=== PATIENT | male | born 1940 | race Caucasian/White ===

== ENCOUNTER 2016-12-27 18:43 | Inpatient (IN) | payer OTHER, MEDICARE ==
[~2016-12-27] VITALS: Ht 167.6 cm; Wt 77.2 kg
[2016-12-27] MEDS ORDERED: SODIUM CHLORIDE 0.9% 1000ML 1,000 ML IV STA (19:02)
[2016-12-27 19:39] LABS: BUN/CREATININE RATIO 18.7 (10-20); CALCIUM 9.7 mg/dl (8.5-10.1); CREATININE 1.59 mg/dl (0.60-1.40); POTASSIUM 4.7 mmol/L (3.5-5.1)
[2016-12-27 19:42] LABS: BASO ABS # 0.09 K/uL (0-0.2); COMPLETE YES; ECHINOCYTES 1+; HEMATOCRIT 42.5 % (42-52); IG% 1.7 %; LYMPH % 35.9 %; LYMPH ABS # 3.31 K/uL (1.2-3.4); MEAN CELL VOLUME 90.2 fL (80-100); MEAN CORPUSCULAR HGB CONC 34.4 g/dl (32-36); MONO % 15.6 %; NEUT % 42.8 %; PLATELET COUNT 7 K/uL (130-400); PLT ESTIMATE SIGNIFIC DECREASED; RED BLOOD COUNT 4.71 M/uL (4.7-6.1); WHITE BLOOD COUNT 9.22 K/uL (4.8-10.8)
[2016-12-27 19:45] LABS: INR 1.2 (0.9-1.1); PARTIAL THROMBOPLASTIN RATIO 1.1; PROTHROMBIN TIME (PATIENT) 13.1 SECONDS (9.0-12.0)
[2016-12-27] MEDS ORDERED: AMLO-114 PO (19:46)
[2016-12-27] MEDS ORDERED: SULF800T23 PO (19:46)
[2016-12-27] MEDS ORDERED: ATEN50TA8 PO (19:46)
[2016-12-27] MEDS ORDERED: IBUP-1050 PO (19:46)
[2016-12-27 20:20] LABS: URINE APPEARANCE CLEAR (CLEAR); URINE BILIRUBIN NEG (NEG); URINE COLOR YELLOW; URINE EPITHELIAL CELL AUTO 0-5 /lpf (0-5); URINE NITRITE NEG (NEG); URINE PH 5.5 (4.5-7.5); URINE SPECIFIC GRAVITY 1.018 (1.000-1.030); UROBILINOGEN NEG (NEG)
[2016-12-27 20:23] LABS: MANUAL MICROSCOPIC REQUIRED? NO; REVIEW REQ? NO
[2016-12-27] MEDS ORDERED: METHYLPREDNISOLONE 125 MG VIAL IV STA (20:35)
[2016-12-27] MEDS ORDERED: ACETAMINOPHEN 325 MG TAB PO PRN (21:45)
[2016-12-27] MEDS ORDERED: MAGNESIUM HYDROXIDE SUSP 30 ML UDC PO PRN (21:45)
[2016-12-27] MEDS ORDERED: ONDANSETRON INJ 2 MG/ML 2 ML VIAL IV PRN (21:45)
[2016-12-27] MEDS ORDERED: ZOLPIDEM TARTRATE 5 MG TAB PO PRN (21:45)
[2016-12-27] MEDS ORDERED: POLYETHYLENE (MIRALAX) 17 GM PACK PO PRN (22:00)
[2016-12-27] MEDS ORDERED: IV FLUIDS COMPLETED PRN (22:00)
--- NOTE | 2016-12-27 22:07 | History and Physical ---
History & Physical Date & Time of Service: Dec 27, 2016 at 21:57 Chief Complaint: Low Platelet Count Primary Care Physician: No Doctor, Assigned History of Present Illness Source: patient 76 y/o M Hx HTN, recurrent prostatitis - presents following routine labs which revealed a platelet count of 9. He has had small reddish spots on his lower extremities for a few months and states he has been bruising easily for the past year. He developed 3 small areas of subcutaneous bleeding on his RLE, with a blister-like appearance, and scheduled an appt with his primary MD therefore. Labs were ordered and returned with the above platelet count. He was instructed to promptly attend the hospital. The pt was placed on a course of Bactrim 5 days prior for prostatitis. He states that he has been on Bactrim previously without complication. Initial labs confirm a platelet count of 7 and mildly impaired renal function without history of CKD. Past Medical/Surgical History Medical Problems: (1) HTN (hypertension) Status: Chronic (2) Prostatitis Status: Resolved Family History Mother age 96 Father - [place] Social History Pt is retired and hails from [place] Smoking Status: Never Smoker Allergies Coded Allergies: Ciprofloxacin (Verified Allergy, Severe, MUSCLE PROBLEMS, 12/27/16) Morphine (Verified Allergy, Severe, HALLUCINATIONS, 12/27/16) Home Medications Scheduled Amlodipine (Norvasc), 10 MG PO DAILY Ibuprofen (Advil), 400 MG PO PRN UD Sulfa/Trimethoprim (Bactrim Ds 800MG/160MG), 1 TAB PO BID Miscellaneous Medications Atenolol (Tenormin), 50 MG PO Review of Systems Constitutional: No fever, No chills, No sweats Eyes: No worsening of vision ENT: No hearing loss, No nasal symptoms Respiratory: No cough, No wheezing Cardiovascular: No chest pain Abdomen: No pain, No vomiting Musculoskeletal: No joint pain Genitourinary - Male: No hematuria, No dysuria Neurologic: No memory loss, No paralysis, No weakness Psychiatric: No depression symptoms Endocrine: No fatigue Hematologic / Lymphatic: + abnormal bleeding/bruising Integumentary: + rash, + problem reported (Blood-filled blisters on distal RLE) Physical Exam Vital Signs Date Time Temp Pulse Resp B/P (MAP) Pulse Ox O2 Delivery O2 Flow Rate FiO2 12/27/16 21:47 59 16 140/76 93 Room Air 12/27/16 20:40 68 20 95 Room Air 12/27/16 19:22 62 12/27/16 18:45 36.6 57 18 183/93 97 Room Air General Appearance: WD/WN, no apparent distress Head: normocephalic ENT: normal ENT inspection, pharynx normal Neck: supple, no JVD Respiratory/Chest: chest non-tender, lungs clear, normal breath sounds, no respiratory distress, no accessory muscle use Cardiovascular: regular rate, rhythm, no edema, no gallop Abdomen/GI: normal bowel sounds, non tender, soft Back: normal inspection, no CVA tenderness Extremities/Musculoskelatal: normal inspection, no calf tenderness, normal capillary refill 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, no motor/sensory deficits, alert, oriented x 3 Skin: normal color, warm/dry, no rash, + pertinent finding (Blood-filled blisters on distal RLE) Diagnostics Laboratory Results Results Past 24 Hours Test 12/27/16 19:07 12/27/16 19:44 Range/Units White Blood Count 9.22 4.8-10.8 K/uL Red Blood Count 4.71 4.7-6.1 M/uL Hemoglobin 14.6 14.0-18.0 g/dL Hematocrit 42.5 42-52 % Mean Corpuscular Volume 90.2 80-100 fL Mean Corpuscular Hemoglobin 31.0 25-34 pg Mean Corpuscular Hemoglobin Concent 34.4 32-36 g/dl Platelet Count 7 130-400 K/uL Neutrophils (%) (Auto) 42.8 % Lymphocytes (%) (Auto) 35.9 % Monocytes (%) (Auto) 15.6 % Eosinophils (%) (Auto) 3.0 % Basophils (%) (Auto) 1.0 % Neutrophils # (Auto) 3.94 1.4-6.5 K/uL Lymphocytes # (Auto) 3.31 1.2-3.4 K/uL Monocytes # (Auto) 1.44 0.11-0.59 K/uL Eosinophils # (Auto) 0.28 0-0.5 K/uL Basophils # (Auto) 0.09 0-0.2 K/uL RDW Standard Deviation 46.3 36.4-46.3 fL RDW Coefficient of Variation 14.0 11.5-14.5 % Immature Granulocyte % (Auto) 1.7 % Immature Granulocyte # (Auto) 0.16 0.00-0.02 K/uL Platelet Estimate SIGNIFIC DECREASED Echinocytes 1+ Prothrombin Time 13.1 9.0-12.0 SECONDS Prothromb Time International Ratio 1.2 0.9-1.1 Activated Partial Thromboplast Time 27.5 21.0-31.0 SECONDS Partial Thromboplastin Ratio 1.1 Sodium Level 138 136-145 mmol/L Potassium Level 4.7 3.5-5.1 mmol/L Chloride Level 109 98-107 mmol/L Carbon Dioxide Level 23 21-32 mmol/L Anion Gap 6.0 3-11 mmol/L Blood Urea Nitrogen 30 7-18 mg/dl Creatinine 1.59 0.60-1.40 mg/dl Est Creatinine Clear Calc Drug Dose 38.4 ml/min Estimated GFR () 47.8 Estimated GFR (Non- 41.3 BUN/Creatinine Ratio 18.7 10-20 Random Glucose 95 70-99 mg/dl Calcium Level 9.7 8.5-10.1 mg/dl Total Bilirubin 0.4 0.2-1 mg/dl Direct Bilirubin 0.1 0-0.2 mg/dl Aspartate Amino Transf (AST/SGOT) 77 15-37 U/L Alanine Aminotransferase (ALT/SGPT) 154 12-78 U/L Alkaline Phosphatase 71 45-117 U/L Lactate Dehydrogenase 266 87-241 U/L Total Protein 7.9 6.4-8.2 gm/dl Albumin 3.8 3.4-5.0 gm/dl Lipase 309 73-393 U/L Urine Color YELLOW Urine Appearance CLEAR CLEAR Urine pH 5.5 4.5-7.5 Urine Specific [place] 1.018 1.000-1.030 Urine Protein NEG NEG Urine Glucose (UA) NEG NEG Urine Ketones NEG NEG Urine Occult Blood 1+ NEG Urine Nitrite NEG NEG Urine Bilirubin NEG NEG Urine Urobilinogen NEG NEG Urine Leukocyte Esterase NEG NEG Urine WBC (Auto) 1-5 0-5 /hpf Urine RBC (Auto) 5-10 0-4 /hpf Urine Hyaline Casts (Auto) 1-5 0-5 /lpf Urine Epithelial Cells (Auto) 0-5 0-5 /lpf Urine Bacteria (Auto) NEG NEG Impression Assessment and Plan 76 y/o M Hx HTN, recurrent prostatitis - presents following routine labs which revealed a platelet count of 9. He has had small reddish spots on his lower extremities for a few months and states he has been bruising easily for the past year. He developed 3 small areas of subcutaneous bleeding on his RLE, with a blister-like appearance, and scheduled an appt with his primary MD therefore. Labs were ordered and returned with the above platelet count. Initial labs confirm a platelet count of 7 and mildly impaired renal function without history of CKD. 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 We will place him on Dexamethasone 40mg daily x 4 days per review of recent lit. With response appropriate response to steroids, he can be considered for AM DC as he does not have active bleeding or anemia. 2) HTN - cont Norvasc and Atenolol 3) Prostatitis - It is likely that his low platelet count preceded his use of Bactrim although we cannot confirm this so that he will be switched to Doxy as an acceptable alternative. He is allergic to Fluoroquinolones. 4) Impaired renal function - chronicity not clear - denies history of - we will provide IVF and recheck AM - this too may be a Bactrim effect. Full code - Prophylaxis contraindicated Total time for this admit including review of labs, meds, imaging - discussion with pt and ER attending 37 min Level of Care Med/Surg Resuscitation Status FULL RESUSCITATION VTE Prophylaxis VTE Risk Assessment Done? Y/N: Yes Risk Level: Low Given or contraindicated: Treatment not tolerated, Contraindicated
--- NOTE | 2016-12-27 22:21 | EMERGENCY ROOM VISIT NOTE ---
History Report prepared by Mitali: José Antonio Roe Under the Supervision of: Dr. Gaston Rivera D.O. First contact with patient: 18:48 Chief Complaint: ABNORMAL LABS Stated Complaint: LOW 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 History of Present Illness The patient is a 76 year old male who presents to the Emergency Room with complaints of constant thrombocytopenia. He was found to have a platelet count below 9000 today. The patient had blood work done today due to having small "lesions" on his legs. He notes that he developed the areas on his legs last week after he began taking Bactrim for prostatitis. The patient also states that he has had "small bumps" on his legs for the past 3-4 months. He states that he has been bruising very easily for the past three months as well. The patient notes that he has had problems with his prostate before in the past. Pt denies headache, change in vision, fevers, bloody or tarry stool, lightheadedness, chest pain, shortness of breath, nausea, vomiting, diarrhea, and melena. He states that he has had some burning with urination. Source of History: patient Onset: Today Symptom Intensity: Platelet count below 9000 Quality: other (thrombocytopenia) Timing: constant Associated Symptoms: + urinary symptoms (burning), No fevers, No chest pain , No SOB, No nausea, No vomiting, No abdominal pain, No melena, No hematochezia , No diarrhea Note: The patient denies change in vision or lightheadedness. Review of Systems See HPI for pertinent positives & negatives. A total of 10 systems reviewed and were otherwise negative. Past Medical & Surgical Medical Problems: (1) HTN (hypertension) (2) Prostatitis (3) Thrombocytopenia Family History No pertinent family history stated. Social History Smoking Status: Never Smoker Occupation Status: retired Current/Historical Medications Scheduled Amlodipine (Norvasc), 10 MG PO DAILY Ibuprofen (Advil), 400 MG PO PRN UD Sulfa/Trimethoprim (Bactrim Ds 800MG/160MG), 1 TAB PO BID Miscellaneous Medications Atenolol (Tenormin), 50 MG PO Allergies Coded Allergies: Ciprofloxacin (Verified Allergy, Severe, MUSCLE PROBLEMS, 12/27/16) Morphine (Verified Allergy, Severe, HALLUCINATIONS, 12/27/16) Physical Exam Vital Signs Date Time Temp Pulse Resp B/P (MAP) Pulse Ox O2 Delivery O2 Flow Rate FiO2 10/25/17 21:47 59 16 140/76 93 Room Air 12/27/16 20:40 68 20 95 Room Air 12/27/16 19:22 62 12/27/16 18:45 36.6 57 18 183/93 97 Room Air Physical Exam GENERAL: Sitting up in bed, alert, well appearing, well nourished, no distress, non-toxic EYE EXAM: normal conjunctiva. OROPHARYNX: no exudate, no erythema, lips, buccal mucosa, and tongue normal and mucous membranes are moist NECK: supple, no nuchal rigidity, no adenopathy, non-tender LUNGS: Clear to auscultation. Normal chest wall mechanics HEART: no murmurs, S1 normal and S2 normal ABDOMEN: abdomen soft, non-tender, normo-active bowel sounds, no masses, no rebound or guarding. BACK: Back is symmetrical on inspection and there is no deformity, no midline tenderness, no CVA tenderness. SKIN: Petechia on bilateral lower extremities with several boli on the right calf, left calf, and left upper shoulder. UPPER EXTREMITIES: upper extremities are grossly normal. LOWER EXTREMITIES: No pitting edema. NEURO EXAM: Normal sensorium, cranial nerves II-XII grossly intact, normal speech, no gross weakness of arms, no gross weakness of legs. Medical Decision & Procedures Laboratory Results 12/27/16 19:07 Red Blood Count 4.71, Mean Corpuscular Volume 90.2, Mean Corpuscular Hemoglobin 31.0, Mean Corpuscular Hemoglobin Concent 34.4, Neutrophils (%) (Auto) 42.8, Lymphocytes (%) (Auto) 35.9, Monocytes (%) (Auto) 15.6, Eosinophils (%) (Auto) 3.0, Basophils (%) (Auto) 1.0, Neutrophils # (Auto) 3.94, Lymphocytes # (Auto) 3.31, Monocytes # (Auto) 1.44, Eosinophils # (Auto) 0.28, Basophils # (Auto) 0.09 12/27/16 19:07 Test 12/27/16 19:07 12/27/16 19:44 White Blood Count 9.22 K/uL (4.8-10.8) Red Blood Count 4.71 M/uL (4.7-6.1) Hemoglobin 14.6 g/dL (14.0-18.0) Hematocrit 42.5 % (42-52) Mean Corpuscular Volume 90.2 fL (80-100) Mean Corpuscular Hemoglobin 31.0 pg (25-34) Mean Corpuscular Hemoglobin Concent 34.4 g/dl (32-36) Platelet Count 7 K/uL (130-400) Neutrophils (%) (Auto) 42.8 % Lymphocytes (%) (Auto) 35.9 % Monocytes (%) (Auto) 15.6 % Eosinophils (%) (Auto) 3.0 % Basophils (%) (Auto) 1.0 % Neutrophils # (Auto) 3.94 K/uL (1.4-6.5) Lymphocytes # (Auto) 3.31 K/uL (1.2-3.4) Monocytes # (Auto) 1.44 K/uL (0.11-0.59) Eosinophils # (Auto) 0.28 K/uL (0-0.5) Basophils # (Auto) 0.09 K/uL (0-0.2) RDW Standard Deviation 46.3 fL (36.4-46.3) RDW Coefficient of Variation 14.0 % (11.5-14.5) Immature Granulocyte % (Auto) 1.7 % Immature Granulocyte # (Auto) 0.16 K/uL (0.00-0.02) Platelet Estimate SIGNIFIC DECREASED Echinocytes 1+ Prothrombin Time 13.1 SECONDS (9.0-12.0) Prothromb Time International Ratio 1.2 (0.9-1.1) Activated Partial Thromboplast Time 27.5 SECONDS (21.0-31.0) Partial Thromboplastin Ratio 1.1 Anion Gap 6.0 mmol/L (3-11) Est Creatinine Clear Calc Drug Dose 38.4 ml/min Estimated GFR () 47.8 Estimated GFR (Non- 41.3 BUN/Creatinine Ratio 18.7 (10-20) Calcium Level 9.7 mg/dl (8.5-10.1) Total Bilirubin 0.4 mg/dl (0.2-1) Direct Bilirubin 0.1 mg/dl (0-0.2) Aspartate Amino Transf (AST/SGOT) 77 U/L (15-37) Alanine Aminotransferase (ALT/SGPT) 154 U/L (12-78) Alkaline Phosphatase 71 U/L (45-117) Lactate Dehydrogenase 266 U/L (87-241) Total Protein 7.9 gm/dl (6.4-8.2) Albumin 3.8 gm/dl (3.4-5.0) Lipase 309 U/L (73-393) Urine Color YELLOW Urine Appearance CLEAR (CLEAR) Urine pH 5.5 (4.5-7.5) Urine Specific [place] 1.018 (1.000-1.030) Urine Protein NEG (NEG) Urine Glucose (UA) NEG (NEG) Urine Ketones NEG (NEG) Urine Occult Blood 1+ (NEG) Urine Nitrite NEG (NEG) Urine Bilirubin NEG (NEG) Urine Urobilinogen NEG (NEG) Urine Leukocyte Esterase NEG (NEG) Urine WBC (Auto) 1-5 /hpf (0-5) Urine RBC (Auto) 5-10 /hpf (0-4) Urine Hyaline Casts (Auto) 1-5 /lpf (0-5) Urine Epithelial Cells (Auto) 0-5 /lpf (0-5) Urine Bacteria (Auto) NEG (NEG) Laboratory results per my review. Medications Administered Medications (Trade) Dose Ordered Sig/Brandi Route Start Time Stop Time Status Last Admin Dose Admin Sodium Chloride 1,000 ml @ 999 mls/hr Q1H1M STAT IV 12/27/16 19:02 12/27/16 20:02 DC 12/27/16 19:02 999 MLS/HR Methylprednisolone Sodium Succinate (Solu-Medrol IV) 40 mg NOW STAT IV 12/27/16 20:35 12/27/16 20:36 DC 12/27/16 20:53 40 MG ED Course ED COURSE: Vital signs were reviewed and showed hypertension. The patients medical record was reviewed The above diagnostic studies were performed and reviewed. ED treatments and interventions as stated above. 1848: The patient was evaluated in room B6. A complete history and physical examination was performed. 1901: Ordered Sodium Chloride 1000 ml @ 999 mls/hr IV. 1958: I discussed the patient's case with the patient's PCP. He requests that the patient be admitted to the hospital. 2034: Ordered Solu-Medrol 40 mg IV. 2039: Upon reevaluation, the patient is resting comfortably. I discussed my findings with the patient and he understands and agrees with the treatment plan. Based on the patients age, coexisting illnesses, exam and lab findings the decision to treat as an inpatient was made. The patient remained stable while under my care. The patient will be evaluated for further management. Medical Decision Differential Diagnosis includes but is not limited to dehydration, stroke, anemia, hypoglycemia, hyponatremia, hypernatremia, urinary tract infection, pneumonia, bronchitis, sepsis, gastroenteritis, additional abdominal pathology, metabolic abnormalities and infections. Patient is a 76-year-old male who notes he has been having bruising over the past year. In the lower extremities he admits that he has had these red spots. On exam he's or petechiae. Recently had blood work performed today which showed platelets of 9. He was referred into the ER admission. Labs were obtained and repeated. Platelets were 7. Discussed with hematology and oncology. Recommended admission and steroids as this is the likely ITP. Did discuss the possibility of Bactrim as he was recently started on this 4 days ago. He has several larger bullae. Negative Nikolsky sign. Updated patient bedside. He is admitted to internal medicine for ITP. He is on Bactrim for possible prostatitis. Medication Reconcilliation Current Medication List: was personally reviewed by me Blood Pressure Screening Patient's blood pressure: Elevated blood pressure Blood pressure disposition: Referred to PCP Consults Time Called: 2024 Consulting Physician: Dr. Durbin -Hematology Returned Call: 2030 I reviewed the patient's case with Dr. Durbin. He recommends that the patient be admitted for further work up. Additional Consults: Time Called: 2031 Consulted Physician: Dr. Sellers -[facility] Returned Call: 2034 Additional Comments: I reviewed the patient's case with Dr. Sellers. EUGENE will evaluate the patient for further management. Impression Primary Impression: Acute ITP Additional Impression: Thrombocytopenia Scribe Attestation The scribe's documentation has been prepared under my direction and personally reviewed by me in its entirety. I confirm that the note above accurately reflects all work, treatment, procedures, and medical decision making performed by me. Departure Information Dispostion Being Evaluated By Hospitalist Referrals No Doctor, Assigned (PCP) Patient Instructions My [facility] [address] Problem Qualifiers
[2016-12-27] MEDS ORDERED: SODIUM CHLORIDE 0.9% 1000ML 1,000 ML IV SCH (22:45)
[2016-12-27 22:58] VITALS: BP 164/80; PULSE 55; TEMP 36.5; O2SAT 96; Ht 167.6 cm; Wt 77.2 kg
[2016-12-28] VITALS: BP 125/77; PULSE 61; TEMP 36.6; O2SAT 96
[2016-12-28 04:00] VITALS: BP 134/77; PULSE 55; TEMP 36.7; O2SAT 97
[2016-12-28 06:19] LABS: BUN/CREATININE RATIO 16.4 (10-20); CALCIUM 8.6 mg/dl (8.5-10.1); CREATININE 1.32 mg/dl (0.60-1.40); POTASSIUM 4.5 mmol/L (3.5-5.1)
[2016-12-28 07:05] VITALS: BP 143/75; PULSE 58; TEMP 36.5; O2SAT 97
[2016-12-28 07:37] LABS: HEMATOCRIT 38.9 % (42-52); MEAN CELL VOLUME 91.5 fL (80-100); MEAN CORPUSCULAR HEMOGLOBIN 30.4 pg (25-34); MEAN CORPUSCULAR HGB CONC 33.2 g/dl (32-36); MEAN PLATELET VOLUME 13.1 fL (7.4-10.4); PLATELET COUNT 5 K/uL (130-400); RED BLOOD COUNT 4.25 M/uL (4.7-6.1); WHITE BLOOD COUNT 8.44 K/uL (4.8-10.8)
[2016-12-28] MEDS: DEXAMETHASONE INJ 40 MG in DEXTROSE 5% 50ML 50 ML IV SCH (08:14)
--- NOTE | 2016-12-28 08:37 | Hospitalist Progress Note ---
Hospitalist Progress Note Date of Service Dec 28, 2016. (Oxana Steinberg PA-C) Subjective Pt evaluation today including: conversation w/ patient, physical exam, chart review, lab review, review of studies Pain: None PO Intake: Good Voiding: no voiding problems The patient was seen and examined this morning. Pt reports feeling well overall. He reports initially noticing petechiae over his lower extremities around the beginning of the year. In June, it became more diffuse on his lower extremities. He has noticed an increased bruisability since end of August this year although thought this was from taking baby aspirin daily, so stopped taking this medication in the beginning of September. He has been on courses of bactrim more than 5 times for prostatitis in his lifetime and has never noticed petechiae before. Interestingly, the patient notes he felt very ill with malaise and fever last Sunday, broke into night sweats, and was seen by his PCP , Dr. Guerrero on Sunday because he felt he was "sitting on a golfball" and knows this as the beginning signs of prostatitis. At that time he was place on bactrim twice daily to continue for 1 month. He had a solid 6 days of taking antibiotic prior to admission. Pt admits that there are larger "spots" developing over his L shoulder, back, and a few places on his arms and legs. Constitutional: No fever, No chills, No sweats, No fatigue Eyes: No redness, No diplopia ENT: No unusual epistaxis, No nasal symptoms, No sore throat Respiratory: No cough, No shortness of breath, No hemoptysis Cardiovascular: No chest pain, No edema, No palpitations Abdomen: No pain, No nausea, No vomiting, No diarrhea, No constipation, No GI bleeding Musculoskeletal: No joint pain, No muscle pain, No swelling Male : No dysuria, No urinary frequency, No incontinence, No hematuria Neurologic: No weakness, No numbness/tingling, No balance problems Skin: + new/changing skin lesions (see HPI) (Oxana Steinberg PA-C) Objective Vital Signs Date Time Temp Pulse Resp B/P (MAP) Pulse Ox O2 Delivery O2 Flow Rate FiO2 12/28/16 07:05 36.5 58 143/75 (97) 97 Room Air 12/28/16 04:00 36.7 55 20 134/77 (96) 97 Room Air 12/28/16 00:01 Room Air 12/28/16 00:00 36.6 61 20 125/77 (93) 96 Room Air 12/27/16 22:58 36.5 55 18 164/80 96 Room Air 12/27/16 21:47 59 16 140/76 93 Room Air 12/27/16 20:40 68 20 95 Room Air 12/27/16 19:22 62 12/27/16 18:45 36.6 57 18 183/93 97 Room Air (Oxana Steinberg, MAGDIELC) Physical Exam General Appearance: WD/WN, no apparent distress Eyes: PERRL, EOMI ENT: hearing grossly normal Neck: supple, no JVD Respiratory/Chest: lungs clear, no respiratory distress, no accessory muscle use Cardiovascular: regular rate, rhythm, no murmur Abdomen: normal bowel sounds, non tender, soft, no organomegaly Extremities: non-tender, no pedal edema, no calf tenderness Neurologic/Psychiatric: alert, normal mood/affect, oriented x 3 Skin: normal color, + pertinent finding (+ petechiae BLE, + small hemorrhagic bullae present over left lateral calf, +Left posterior shouler lesion, + few small areas 2x2 cm circular eryhematous lesions developing on legs and back. ) (Oxana Steinberg, JAIMIE-C) Laboratory Results Last 24 Hours Test 12/27/16 19:07 12/27/16 19:44 12/28/16 05:18 White Blood Count 9.22 K/uL 8.44 K/uL Red Blood Count 4.71 M/uL 4.25 M/uL Hemoglobin 14.6 g/dL 12.9 g/dL Hematocrit 42.5 % 38.9 % Mean Corpuscular Volume 90.2 fL 91.5 fL Mean Corpuscular Hemoglobin 31.0 pg 30.4 pg Mean Corpuscular Hemoglobin Concent 34.4 g/dl 33.2 g/dl Platelet Count 7 K/uL 5 K/uL Neutrophils (%) (Auto) 42.8 % Lymphocytes (%) (Auto) 35.9 % Monocytes (%) (Auto) 15.6 % Eosinophils (%) (Auto) 3.0 % Basophils (%) (Auto) 1.0 % Neutrophils # (Auto) 3.94 K/uL Lymphocytes # (Auto) 3.31 K/uL Monocytes # (Auto) 1.44 K/uL Eosinophils # (Auto) 0.28 K/uL Basophils # (Auto) 0.09 K/uL RDW Standard Deviation 46.3 fL 46.6 fL RDW Coefficient of Variation 14.0 % 14.0 % Immature Granulocyte % (Auto) 1.7 % Immature Granulocyte # (Auto) 0.16 K/uL Platelet Estimate SIGNIFIC DECREASED Echinocytes 1+ Prothrombin Time 13.1 SECONDS Prothromb Time International Ratio 1.2 Activated Partial Thromboplast Time 27.5 SECONDS Partial Thromboplastin Ratio 1.1 Sodium Level 138 mmol/L 138 mmol/L Potassium Level 4.7 mmol/L 4.5 mmol/L Chloride Level 109 mmol/L 109 mmol/L Carbon Dioxide Level 23 mmol/L 23 mmol/L Anion Gap 6.0 mmol/L 6.0 mmol/L Blood Urea Nitrogen 30 mg/dl 22 mg/dl Creatinine 1.59 mg/dl 1.32 mg/dl Est Creatinine Clear Calc Drug Dose 38.4 ml/min 46.2 ml/min Estimated GFR () 47.8 59.9 Estimated GFR (Non- 41.3 51.7 BUN/Creatinine Ratio 18.7 16.4 Random Glucose 95 mg/dl 106 mg/dl Calcium Level 9.7 mg/dl 8.6 mg/dl Total Bilirubin 0.4 mg/dl Direct Bilirubin 0.1 mg/dl Aspartate Amino Transf (AST/SGOT) 77 U/L Alanine Aminotransferase (ALT/SGPT) 154 U/L Alkaline Phosphatase 71 U/L Lactate Dehydrogenase 266 U/L Total Protein 7.9 gm/dl Albumin 3.8 gm/dl Lipase 309 U/L Urine Color YELLOW Urine Appearance CLEAR Urine pH 5.5 Urine Specific [place] 1.018 Urine Protein NEG Urine Glucose (UA) NEG Urine Ketones NEG Urine Occult Blood 1+ Urine Nitrite NEG Urine Bilirubin NEG Urine Urobilinogen NEG Urine Leukocyte Esterase NEG Urine WBC (Auto) 1-5 /hpf Urine RBC (Auto) 5-10 /hpf Urine Hyaline Casts (Auto) 1-5 /lpf Urine Epithelial Cells (Auto) 0-5 /lpf Urine Bacteria (Auto) NEG Mean Platelet Volume 13.1 fL (Oxana Steinberg PA-C) Assessment and Plan 76 y/o M Hx HTN, recurrent prostatitis - presents following routine labs which revealed a platelet count of 9. He has had small reddish spots on his lower extremities for a few months and states he has been bruising easily for the past year. He developed 3 small areas of subcutaneous bleeding on his RLE, with a blister-like appearance, and scheduled an appt with his primary MD therefore. 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 - Pt allergic to Fluoroquinolones. Impaired renal function - Denies hx of zach but appears improved with hydration overnight. - possible this is from Bactrim? DVT ppx: contraindicated CODE STATUS: Full code Disposition: From home, lives with (Oxana Steinberg PA-C) I examined patient and discussed my analysis and plan with patient and APC. I agree with above note. My exam did not differ from the exam noted above. I answered all questions from patient. (Blayne Castillo M.D.)
[2016-12-28 08:59] LABS: BASO % 0.8 %; BASO ABS # 0.07 K/uL (0-0.2); COMPLETE YES; ECHINOCYTES 1+; EOS % 3.8 %; IG% 1.4 %; LYMPH % 35.8 %; LYMPH ABS # 3.02 K/uL (1.2-3.4); MONO % 16.6 %; NEUT % 41.6 %; PLT ESTIMATE SIGNIFIC DECREASED; TEAR DROP CELLS 1+
--- NOTE | 2016-12-28 09:59 | Oncology Consultation ---
Oncology/Heme Consultation Date of Consultation: Dec 28, 2016. Attending Physician: Rene Sellers M.D. Reason for Consultation: Thrombocytopenia History of Present Illness Mr. Tamayo is a delightful 76-year-old gentleman of [place] descent that was admitted last night with severe thrombocytopenia. He is a good historian he describes what sound like petechiae that were on his ankles and feet for several months. More recently he developed essentially blood blisters on his calf on the right side in a few days ago perhaps for 5 days ago he also had a a drenching night sweats. For the past few days in addition he has been on Bactrim for recurrent prostatitis. CBC was done that showed a platelet count of 7000 and the patient was admitted and is currently receiving bolus high-dose Decadron. He denies any personal history of heart disease lung disease strokes or seizures or kidney problems. He does have a history of renal lithiasis. He denies any history of diabetes. There is been no other medicine changes. He does not drink alcohol to any great extent and does not smoke. He denies weight loss. He denies any new aches and pains although he has a history of rheumatoid arthritis and takes an occasional ibuprofen when he plays golf. He has a history of rheumatic fever as a child. He used to take baby aspirin but he stopped 6 months ago when he commented to his primary physician that he tended to bruise easier than what he can recall. Past Medical/Surgical History Medical Problems: (1) Acute ITP Status: Acute Social History Smoking Status: Never Smoker Occupation Status: retired Allergies Coded Allergies: Ciprofloxacin (Verified Allergy, Severe, MUSCLE PROBLEMS, 12/27/16) Morphine (Verified Allergy, Severe, HALLUCINATIONS, 12/27/16) Home Medications Scheduled Amlodipine (Norvasc), 10 MG PO DAILY Ibuprofen (Advil), 400 MG PO PRN UD Sulfa/Trimethoprim (Bactrim Ds 800MG/160MG), 1 TAB PO BID Miscellaneous Medications Atenolol (Tenormin), 50 MG PO Current Inpatient Medications Current Inpatient Medications Medications (Trade) Dose Ordered Sig/Brandi Route Start Time Stop Time Status Last Admin Dose Admin Amlodipine Besylate (Norvasc Tab) 10 mg DAILY PO 12/28/16 08:00 01/27/17 08:59 Atenolol (Tenormin Tab) 50 mg DAILY PO 12/28/16 08:00 01/27/17 08:59 Acetaminophen (Tylenol Tab) 650 mg Q4H PRN PO 12/27/16 21:45 01/26/17 21:44 Al Hydrox/Mg Hydrox/Simethicone (Maalox Max Susp) 15 ml Q4H PRN PO 12/27/16 21:45 01/26/17 21:44 Magnesium Hydroxide (Milk Of Magnesia Susp) 30 ml Q6H PRN PO 12/27/16 21:45 01/26/17 21:44 Polyethylene (Miralax Powder Packet) 17 gm DAILY PRN PO 12/27/16 22:00 01/26/17 21:59 Zolpidem Tartrate (Ambien Tab) 5 mg HSZ PRN PO 12/27/16 21:45 01/26/17 21:44 Ondansetron HCl (Zofran Inj) 4 mg Q6H PRN IV 12/27/16 21:45 01/26/17 21:44 Miscellaneous (Iv Fluids Completed) 1 ea PRN PRN N/A 12/27/16 22:00 12/27/17 21:59 Dexamethasone Sodium Phosphate 40 mg/Dextrose 60 ml @ 120 mls/hr Q24H IV 12/28/16 08:00 01/27/17 07:59 12/28/16 08:14 120 MLS/HR Doxycycline Hyclate (Vibramycin Cap) 100 mg BID PO 12/28/16 08:00 01/07/17 08:59 Review of Systems Constitutional: Negative for weight loss, he did have an evening last Sunday night with a night sweats Eyes: Negative for event change of vision ENT: Negative for epistaxis, nasal discharge, sore throat, or deafness Cardiovascular: Negative for chest pain, palpitations, dizziness, diaphoresis Respiratory: Negative for new shortness of breath,hemoptysis, or purulent cough Gastrointestinal: Negative for diarrhea, hematemesis, melena, nausea, vomiting , or dyspepsia Integumentary (skin): Negative for rash or jaundice discoloration Genitourinary: Negative for urinary frequency, hematuria, or dysuria Neurological: Negative for weakness, seizure activity, headache, or dizziness Lymphatic/Hematologic: Negative for petechiae, bleeding or new adenopathy Musculoskeletal: Negative for new joint or back pain Allergic/Immunologic: Negative for unusual rash or pruritis. Physical Exam Date Time Temp Pulse Resp B/P (MAP) Pulse Ox O2 Delivery O2 Flow Rate FiO2 12/28/16 07:05 36.5 58 143/75 (97) 97 Room Air 12/28/16 04:00 36.7 55 20 134/77 (96) 97 Room Air 12/28/16 00:01 Room Air 12/28/16 00:00 36.6 61 20 125/77 (93) 96 Room Air 12/27/16 22:58 36.5 55 18 164/80 96 Room Air 12/27/16 21:47 59 16 140/76 93 Room Air 12/27/16 20:40 68 20 95 Room Air 12/27/16 19:22 62 12/27/16 18:45 36.6 57 18 183/93 97 Room Air Constitutional: vitals are stable. Eyes: Eyes are ANISHA EOMI without conjuctival erythema or icterus. ENT: External examination was negative for masses. Neck: Negative for masses or palpable thyromegaly Respiratory: Lung sounds were generally clear bilaterally Cardiovascular: Heart was RRR without significant murmur, gallops aoe rubs Gastrointestinal: No palpable hepatic or splenomegaly. The abdomen was soft with normal bowel sounds. Lymphatic system: there was no palpable peripheral lymphadenopathy Musculoskeletal System: The musculoskeletal system seemed concordant with age. Skin: The skin was negative for jaundice. There are dependent petechiae on both lower extremities involving ankles lower legs and feet. There is 1 "blood blister" on the lateral aspect of his right leg Neurologic exam: The exam was negative for any focal findings. Deep tendon reflexes were equal and symmetrical. Psychiatric exam: Was essentially negative with normal mood and effect. Extremities: Negative for edema erythema Laboratory Results Last 24 Hours Test 12/27/16 19:07 12/27/16 19:44 12/28/16 05:18 White Blood Count 9.22 K/uL 8.44 K/uL Red Blood Count 4.71 M/uL 4.25 M/uL Hemoglobin 14.6 g/dL 12.9 g/dL Hematocrit 42.5 % 38.9 % Mean Corpuscular Volume 90.2 fL 91.5 fL Mean Corpuscular Hemoglobin 31.0 pg 30.4 pg Mean Corpuscular Hemoglobin Concent 34.4 g/dl 33.2 g/dl Platelet Count 7 K/uL 5 K/uL Neutrophils (%) (Auto) 42.8 % 41.6 % Lymphocytes (%) (Auto) 35.9 % 35.8 % Monocytes (%) (Auto) 15.6 % 16.6 % Eosinophils (%) (Auto) 3.0 % 3.8 % Basophils (%) (Auto) 1.0 % 0.8 % Neutrophils # (Auto) 3.94 K/uL 3.51 K/uL Lymphocytes # (Auto) 3.31 K/uL 3.02 K/uL Monocytes # (Auto) 1.44 K/uL 1.40 K/uL Eosinophils # (Auto) 0.28 K/uL 0.32 K/uL Basophils # (Auto) 0.09 K/uL 0.07 K/uL RDW Standard Deviation 46.3 fL 46.6 fL RDW Coefficient of Variation 14.0 % 14.0 % Immature Granulocyte % (Auto) 1.7 % 1.4 % Immature Granulocyte # (Auto) 0.16 K/uL 0.12 K/uL Platelet Estimate SIGNIFIC DECREASED SIGNIFIC DECREASED Echinocytes 1+ 1+ Prothrombin Time 13.1 SECONDS Prothromb Time International Ratio 1.2 Activated Partial Thromboplast Time 27.5 SECONDS Partial Thromboplastin Ratio 1.1 Sodium Level 138 mmol/L 138 mmol/L Potassium Level 4.7 mmol/L 4.5 mmol/L Chloride Level 109 mmol/L 109 mmol/L Carbon Dioxide Level 23 mmol/L 23 mmol/L Anion Gap 6.0 mmol/L 6.0 mmol/L Blood Urea Nitrogen 30 mg/dl 22 mg/dl Creatinine 1.59 mg/dl 1.32 mg/dl Est Creatinine Clear Calc Drug Dose 38.4 ml/min 46.2 ml/min Estimated GFR () 47.8 59.9 Estimated GFR (Non- 41.3 51.7 BUN/Creatinine Ratio 18.7 16.4 Random Glucose 95 mg/dl 106 mg/dl Calcium Level 9.7 mg/dl 8.6 mg/dl Total Bilirubin 0.4 mg/dl Direct Bilirubin 0.1 mg/dl Aspartate Amino Transf (AST/SGOT) 77 U/L Alanine Aminotransferase (ALT/SGPT) 154 U/L Alkaline Phosphatase 71 U/L Lactate Dehydrogenase 266 U/L Total Protein 7.9 gm/dl Albumin 3.8 gm/dl Lipase 309 U/L Urine Color YELLOW Urine Appearance CLEAR Urine pH 5.5 Urine Specific [place] 1.018 Urine Protein NEG Urine Glucose (UA) NEG Urine Ketones NEG Urine Occult Blood 1+ Urine Nitrite NEG Urine Bilirubin NEG Urine Urobilinogen NEG Urine Leukocyte Esterase NEG Urine WBC (Auto) 1-5 /hpf Urine RBC (Auto) 5-10 /hpf Urine Hyaline Casts (Auto) 1-5 /lpf Urine Epithelial Cells (Auto) 0-5 /lpf Urine Bacteria (Auto) NEG Mean Platelet Volume 13.1 fL Tear Drop Cells 1+ Assessment & Plan ITP. Review of his peripheral smear is really unremarkable. The red cells are banal looking. There is an occasional giant platelet. No definite platelet satellitosis or clumping is noted. He has been placed on pulse high-dose Decadron. The usual formula is 40 mg either IV or p.o. of Decadron daily for 4 days. He denies any headache. There is been no overt bleeding other than what is been stated. I should note he denies any gingival bleeding. I tend to ask that we see a platelet count trending at least in the right direction and this may take 2 or 3 days prior to discharge. Once that occurs then he will be followed up as an outpatient in our clinic. We of course will continue to follow with you as he is here and receiving again pulse high dose Decadron
[2016-12-28 10:18] VITALS: O2SAT 97
[2016-12-28] MEDS: DOXYCYCLINE HYCLATE 100 MG CAP PO SCH ×2 (10:27→20:31)
[2016-12-28] MEDS: AMLODIPINE BESYLATE 5 MG TAB PO SCH (10:30)
[2016-12-28 11:24] VITALS: BP 144/82; PULSE 64; TEMP 37; O2SAT 97
[2016-12-28 14:36] VITALS: BP 132/73; PULSE 86; TEMP 36.5; O2SAT 94
[2016-12-28] MEDS: ALUMINUM/MAGNESIUM/SIMETH (MAALOX MAX) 30 ML UDC PO PRN ×2 (15:36→22:15)
[2016-12-29] VITALS: BP 124/70; PULSE 64; TEMP 36.8; O2SAT 94
[2016-12-29 07:25] VITALS: BP 135/72; PULSE 63; TEMP 36.5; O2SAT 98
[2016-12-29] MEDS: DOXYCYCLINE HYCLATE 100 MG CAP PO SCH (08:06)
[2016-12-29] MEDS: DEXAMETHASONE INJ 40 MG in DEXTROSE 5% 50ML 50 ML IV SCH (08:06)
[2016-12-29] MEDS: AMLODIPINE BESYLATE 5 MG TAB PO SCH (08:08)
[2016-12-29 11:25] LABS: HEMATOCRIT 41.9 % (42-52); MEAN CELL VOLUME 90.5 fL (80-100); MEAN CORPUSCULAR HEMOGLOBIN 31.1 pg (25-34); MEAN CORPUSCULAR HGB CONC 34.4 g/dl (32-36); PLATELET COUNT 33 K/uL (130-400); RED BLOOD COUNT 4.63 M/uL (4.7-6.1); WHITE BLOOD COUNT 19.43 K/uL (4.8-10.8)
[2016-12-29 11:26] LABS: BASO % 0.1 %; BASO ABS # 0.02 K/uL (0-0.2); COMPLETE YES; EOS % 0.1 %; IG% 1.1 %; LARGE PLATELETS 1+; LYMPH ABS # 1.55 K/uL (1.2-3.4); MONO % 7.9 %; NEUT % 82.8 %; PLT ESTIMATE SIGNIFIC DECREASED
--- NOTE | 2016-12-29 12:11 | Hematology/Oncology Prog Note ---
Hematology/Onc Progress Note Date of Service Dec 29, 2016. Diagnoses ITP Medications Medications Administered Medications (Trade) Dose Ordered Sig/Brandi Route Start Time Stop Time Status Last Admin Dose Admin Sodium Chloride 1,000 ml @ 999 mls/hr Q1H1M STAT IV 12/27/16 19:02 12/27/16 20:02 DC 12/27/16 19:02 999 MLS/HR Methylprednisolone Sodium Succinate (Solu-Medrol IV) 40 mg NOW STAT IV 12/27/16 20:35 12/27/16 20:36 DC 12/27/16 20:53 40 MG Amlodipine Besylate (Norvasc Tab) 10 mg DAILY PO 12/28/16 08:00 01/27/17 08:59 12/29/16 08:08 10 MG Atenolol (Tenormin Tab) 50 mg DAILY PO 12/28/16 08:00 01/27/17 08:59 12/29/16 08:07 50 MG Al Hydrox/Mg Hydrox/Simethicone (Maalox Max Susp) 15 ml Q4H PRN PO 12/27/16 21:45 01/26/17 21:44 12/28/16 22:15 15 ML Miscellaneous (Iv Fluids Completed) 1 ea PRN PRN N/A 12/27/16 22:00 12/27/17 21:59 12/28/16 09:30 1 EA Dexamethasone Sodium Phosphate 40 mg/Dextrose 60 ml @ 120 mls/hr Q24H IV 12/28/16 08:00 01/27/17 07:59 12/29/16 08:06 120 MLS/HR Doxycycline Hyclate (Vibramycin Cap) 100 mg BID PO 12/28/16 08:00 01/07/17 08:59 12/29/16 08:06 100 MG Sodium Chloride 1,000 ml @ 100 mls/hr Q10H IV 12/27/16 22:45 12/28/16 08:44 DC 12/27/16 22:54 100 MLS/HR Subjective He is doing well. He has had no further bleeding. The blood blister on the lateral aspect of his right calf broke earlier today and currently has a bandage. He denies any headache. Review of Systems: Constitutional: Negative for night sweats, or fever Eyes: Negative for event change of vision ENT: Negative for epistaxis, nasal discharge, sore throat, or deafness Cardiovascular: Negative for chest pain, palpitations, dizziness, diaphoresis Respiratory: Negative for new shortness of breath,hemoptysis, or purulent cough Gastrointestinal: Negative for diarrhea, hematemesis, melena, nausea, vomiting , or dyspepsia Integumentary (skin): Negative for rash or jaundice discoloration Genitourinary: Negative for urinary frequency, hematuria, or dysuria Neurological: Negative for weakness, seizure activity, headache, or dizziness Lymphatic/Hematologic: Negative for new petechiae, bleeding or new adenopathy Musculoskeletal: Negative for new joint or back pain Allergic/Immunologic: Negative for unusual rash or pruritis. Vital Signs Vital Signs Past 12 Hours Date Time Temp Pulse Resp B/P (MAP) Pulse Ox O2 Delivery O2 Flow Rate FiO2 12/29/16 08:00 Room Air 12/29/16 07:25 36.5 63 16 135/72 (93) 98 Room Air Physical Exam Constitutional: vitals are stable. Eyes: Eyes are ANISHA EOMI without conjuctival erythema or icterus. ENT: External examination was negative for masses. Neck: Negative for masses or palpable thyromegaly Respiratory: Lung sounds were generally clear bilaterally Cardiovascular: Heart was RRR without significant murmur, gallops aoe rubs Gastrointestinal: No palpable hepatic or splenomegaly. The abdomen was soft with normal bowel sounds. Lymphatic system: there was no palpable peripheral lymphadenopathy Musculoskeletal System: The musculoskeletal system seemed concordant with age. Skin: The skin was negative for jaundice. Petechiae are resolving Neurologic exam: The exam was negative for any focal findings. Deep tendon reflexes were equal and symmetrical. Psychiatric exam: Was essentially negative with normal mood and effect. Extremities: Negative for significant edema or erythema Laboratory Last 24 Hours Test 12/28/16 15:59 12/29/16 10:24 Hemoglobin 14.8 g/dL 14.4 g/dL Hematocrit 44.0 % 41.9 % White Blood Count 19.43 K/uL Red Blood Count 4.63 M/uL Mean Corpuscular Volume 90.5 fL Mean Corpuscular Hemoglobin 31.1 pg Mean Corpuscular Hemoglobin Concent 34.4 g/dl Platelet Count 33 K/uL Mean Platelet Volume 13.0 fL Neutrophils (%) (Auto) 82.8 % Lymphocytes (%) (Auto) 8.0 % Monocytes (%) (Auto) 7.9 % Eosinophils (%) (Auto) 0.1 % Basophils (%) (Auto) 0.1 % Neutrophils # (Auto) 16.09 K/uL Lymphocytes # (Auto) 1.55 K/uL Monocytes # (Auto) 1.54 K/uL Eosinophils # (Auto) 0.01 K/uL Basophils # (Auto) 0.02 K/uL RDW Standard Deviation 45.6 fL RDW Coefficient of Variation 13.7 % Immature Granulocyte % (Auto) 1.1 % Immature Granulocyte # (Auto) 0.22 K/uL Platelet Estimate SIGNIFIC DECREASED Large Platelets 1+ Assessment & Plan ITP today's platelet count is recorded at 33,000. There is been no further bleeding. I would complete the 4 day dose of 40 mg a day of Decadron. Perhaps he can be discharged to receive Decadron tomorrow orally which would be his fourth day I believe.. We will arrange for follow-up in our clinic to occur mid next week. I did leave a card with him in our clinic will be in touch with Geri Rudi. He appears clinically stable
[2016-12-29 14:58] VITALS: BP 129/70; PULSE 65; TEMP 36.4; O2SAT 95
[2016-12-29] MEDS: ALUMINUM/MAGNESIUM/SIMETH (MAALOX MAX) 30 ML UDC PO PRN (15:21)
[2016-12-29 15:31] VITALS: BP 129/70; PULSE 65; TEMP 36.4; O2SAT 95
[2016-12-29] MEDS ORDERED: DXM/4 PO (16:03)
--- NOTE | 2016-12-29 16:04 | Discharge Instructions ---
Discharge Instructions Date of Service Dec 29, 2016. Admission Reason for Admission: Thrombocytopenia Discharge Discharge Diagnosis / Problem: Idiopathic Thrombocytopenia Discharge Goals Goal(s): Improve function Activity Recommendations Activity Limitations: resume your previous activity . Instructions / Follow-Up Instructions / Follow-Up F/U with Site Damage Prevention Technician next week F/U with PCP in 1-2 weeks Current Hospital Diet Patient's current hospital diet: Regular Diet Discharge Diet Recommended Diet: Regular Diet Pending Studies Studies pending at discharge: no Medical Emergencies . Who to Call and When: Medical Emergencies: If at any time you feel your situation is an emergency, please call 911 immediately. . Non-Emergent Contact Non-Emergency issues call your: Primary Care Provider Call Non-Emergent contact if: you have any medication questions . . "Provider Documentation" section prepared by Blayne Castillo. . VTE Core Measure Inpt VTE Proph given/why not?: Treatment not tolerated, Contraindicated
--- NOTE | 2016-12-29 16:07 | Discharge Summary ---
Discharge Summary Date of Service Dec 29, 2016. Discharge Summary Admission Date: Dec 28, 2016 at 15:35 Discharge Date: Dec 29, 2016 Discharge Disposition: Home Principal Diagnosis: ITP Consultations: Oncology/Heme Consultation Date of Consultation: Dec 28, 2016. Attending Physician: Rene Sellers M.D. Reason for Consultation: Thrombocytopenia History of Present Illness Mr. Tamayo is a delightful 76-year-old gentleman of [place] descent that was admitted last night with severe thrombocytopenia. He is a good historian he describes what sound like petechiae that were on his ankles and feet for several months. More recently he developed essentially blood blisters on his calf on the right side in a few days ago perhaps for 5 days ago he also had a a drenching night sweats. For the past few days in addition he has been on Bactrim for recurrent prostatitis. CBC was done that showed a platelet count of 7000 and the patient was admitted and is currently receiving bolus high-dose Decadron. He denies any personal history of heart disease lung disease strokes or seizures or kidney problems. He does have a history of renal lithiasis. He denies any history of diabetes. There is been no other medicine changes. He does not drink alcohol to any great extent and does not smoke. He denies weight loss. He denies any new aches and pains although he has a history of rheumatoid arthritis and takes an occasional ibuprofen when he plays golf. He has a history of rheumatic fever as a child. He used to take baby aspirin but he stopped 6 months ago when he commented to his primary physician that he tended to bruise easier than what he can recall. Past Medical/Surgical History Medical Problems: (1) Acute ITP Status: Acute Assessment & Plan ITP. Review of his peripheral smear is really unremarkable. The red cells are banal looking. There is an occasional giant platelet. No definite platelet satellitosis or clumping is noted. He has been placed on pulse high-dose Decadron. The usual formula is 40 mg either IV or p.o. of Decadron daily for 4 days. He denies any headache. There is been no overt bleeding other than what is been stated. I should note he denies any gingival bleeding. I tend to ask that we see a platelet count trending at least in the right direction and this may take 2 or 3 days prior to discharge. Once that occurs then he will be followed up as an outpatient in our clinic. We of course will continue to follow with you as he is here and receiving again pulse high dose Decadron <Electronically signed by Kadeem Durbin D.O.> Medication Reconciliation New Medications: Doxycycline Hyclate (Doxycycline Hyclate) 100 Mg Cap 1 TAB PO BID for 30 Days, #60 TAB 1 Refill Continued Medications: Amlodipine (Norvasc) 10 Mg Tab 10 MG PO DAILY, TAB Atenolol (Tenormin) 50 Mg Tab 50 MG PO, TAB Discontinued Medications: Ibuprofen (Advil) 200 Mg Tab 400 MG PO PRN UD, TAB Sulfa/Trimethoprim (Bactrim Ds 800MG/160MG) Tab 1 TAB PO BID, #6 TAB Discharge Exam Review of Systems: Constitutional: No fever, No chills Respiratory: No cough, No sputum, No wheezing Cardiovascular: No chest pain, No orthopnea, No PND Abdomen: No pain, No nausea, No vomiting Psychiatric: No depression symptoms, No anhedonism Endocrine: No fatigue, No excessive thirst Hematologic / Lymphatic: + abnormal bleeding/bruising Integumentary: No rash, No itch Physical Exam: General Appearance: WD/WN, no apparent distress Neck: supple, no adenopathy Respiratory/Chest: chest non-tender, lungs clear, normal breath sounds Cardiovascular: regular rate, rhythm, no edema Abdomen / GI: normal bowel sounds, non tender, soft Extremities: normal inspection, no calf tenderness Lymphatic: no adenopathy Hospital Course History & Physical Date & Time of Service: Dec 27, 2016 at 21:57 Chief Complaint: Low Platelet Count Primary Care Physician: No Doctor, Assigned History of Present Illness Source: patient 76 y/o M Hx HTN, recurrent prostatitis - presents following routine labs which revealed a platelet count of 9. He has had small reddish spots on his lower extremities for a few months and states he has been bruising easily for the past year. He developed 3 small areas of subcutaneous bleeding on his RLE, with a blister-like appearance, and scheduled an appt with his primary MD therefore. Labs were ordered and returned with the above platelet count. He was instructed to promptly attend the hospital. The pt was placed on a course of Bactrim 5 days prior for prostatitis. He states that he has been on Bactrim previously without complication. Initial labs confirm a platelet count of 7 and mildly impaired renal function without history of CKD. Past Medical/Surgical History Medical Problems: (1) HTN (hypertension) Status: Chronic (2) Prostatitis Status: Resolved Family History Mother age 96 Father - [place] Social History Pt is retired and hails from [place] Smoking Status: Never Smoker Allergies Coded Allergies: Ciprofloxacin (Verified Allergy, Severe, MUSCLE PROBLEMS, 12/27/16) Morphine (Verified Allergy, Severe, HALLUCINATIONS, 12/27/16) Home Medications Scheduled Amlodipine (Norvasc), 10 MG PO DAILY Ibuprofen (Advil), 400 MG PO PRN UD Sulfa/Trimethoprim (Bactrim Ds 800MG/160MG), 1 TAB PO BID Miscellaneous Medications Atenolol (Tenormin), 50 MG PO Review of Systems Constitutional: No fever, No chills, No sweats Eyes: No worsening of vision ENT: No hearing loss, No nasal symptoms Respiratory: No cough, No wheezing Cardiovascular: No chest pain Abdomen: No pain, No vomiting Musculoskeletal: No joint pain Genitourinary - Male: No hematuria, No dysuria Neurologic: No memory loss, No paralysis, No weakness Psychiatric: No depression symptoms Endocrine: No fatigue Hematologic / Lymphatic: + abnormal bleeding/bruising Integumentary: + rash, + problem reported (Blood-filled blisters on distal RLE) Physical Exam Vital Signs Date Time Temp Pulse Resp B/P (MAP) Pulse Ox O2 Delivery O2 Flow Rate FiO2 12/27/16 21:47 59 16 140/76 93 Room Air 12/27/16 20:40 68 20 95 Room Air 12/27/16 19:22 62 12/27/16 18:45 36.6 57 18 183/93 97 Room Air General Appearance: WD/WN, no apparent distress Head: normocephalic ENT: normal ENT inspection, pharynx normal Neck: supple, no JVD Respiratory/Chest: chest non-tender, lungs clear, normal breath sounds, no respiratory distress, no accessory muscle use Cardiovascular: regular rate, rhythm, no edema, no gallop Abdomen/GI: normal bowel sounds, non tender, soft Back: normal inspection, no CVA tenderness Extremities/Musculoskelatal: normal inspection, no calf tenderness, normal capillary refill 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, no motor/sensory deficits, alert, oriented x 3 Skin: normal color, warm/dry, no rash, + pertinent finding (Blood-filled blisters on distal RLE) Diagnostics Laboratory Results Results Past 24 Hours Test 12/27/16 19:07 12/27/16 19:44 Range/Units White Blood Count 9.22 4.8-10.8 K/uL Red Blood Count 4.71 4.7-6.1 M/uL Hemoglobin 14.6 14.0-18.0 g/dL Hematocrit 42.5 42-52 % Mean Corpuscular Volume 90.2 80-100 fL Mean Corpuscular Hemoglobin 31.0 25-34 pg Mean Corpuscular Hemoglobin Concent 34.4 32-36 g/dl Platelet Count 7 130-400 K/uL Neutrophils (%) (Auto) 42.8 % Lymphocytes (%) (Auto) 35.9 % Monocytes (%) (Auto) 15.6 % Eosinophils (%) (Auto) 3.0 % Basophils (%) (Auto) 1.0 % Neutrophils # (Auto) 3.94 1.4-6.5 K/uL Lymphocytes # (Auto) 3.31 1.2-3.4 K/uL Monocytes # (Auto) 1.44 0.11-0.59 K/uL Eosinophils # (Auto) 0.28 0-0.5 K/uL Basophils # (Auto) 0.09 0-0.2 K/uL RDW Standard Deviation 46.3 36.4-46.3 fL RDW Coefficient of Variation 14.0 11.5-14.5 % Immature Granulocyte % (Auto) 1.7 % Immature Granulocyte # (Auto) 0.16 0.00-0.02 K/uL Platelet Estimate SIGNIFIC DECREASED Echinocytes 1+ Prothrombin Time 13.1 9.0-12.0 SECONDS Prothromb Time International Ratio 1.2 0.9-1.1 Activated Partial Thromboplast Time 27.5 21.0-31.0 SECONDS Partial Thromboplastin Ratio 1.1 Sodium Level 138 136-145 mmol/L Potassium Level 4.7 3.5-5.1 mmol/L Chloride Level 109 98-107 mmol/L Carbon Dioxide Level 23 21-32 mmol/L Anion Gap 6.0 3-11 mmol/L Blood Urea Nitrogen 30 7-18 mg/dl Creatinine 1.59 0.60-1.40 mg/dl Est Creatinine Clear Calc Drug Dose 38.4 ml/min Estimated GFR () 47.8 Estimated GFR (Non- 41.3 BUN/Creatinine Ratio 18.7 10-20 Random Glucose 95 70-99 mg/dl Calcium Level 9.7 8.5-10.1 mg/dl Total Bilirubin 0.4 0.2-1 mg/dl Direct Bilirubin 0.1 0-0.2 mg/dl Aspartate Amino Transf (AST/SGOT) 77 15-37 U/L Alanine Aminotransferase (ALT/SGPT) 154 12-78 U/L Alkaline Phosphatase 71 45-117 U/L Lactate Dehydrogenase 266 87-241 U/L Total Protein 7.9 6.4-8.2 gm/dl Albumin 3.8 3.4-5.0 gm/dl Lipase 309 73-393 U/L Urine Color YELLOW Urine Appearance CLEAR CLEAR Urine pH 5.5 4.5-7.5 Urine Specific [place] 1.018 1.000-1.030 Urine Protein NEG NEG Urine Glucose (UA) NEG NEG Urine Ketones NEG NEG Urine Occult Blood 1+ NEG Urine Nitrite NEG NEG Urine Bilirubin NEG NEG Urine Urobilinogen NEG NEG Urine Leukocyte Esterase NEG NEG Urine WBC (Auto) 1-5 0-5 /hpf Urine RBC (Auto) 5-10 0-4 /hpf Urine Hyaline Casts (Auto) 1-5 0-5 /lpf Urine Epithelial Cells (Auto) 0-5 0-5 /lpf Urine Bacteria (Auto) NEG NEG Impression Assessment and Plan 76 y/o M Hx HTN, recurrent prostatitis - presents following routine labs which revealed a platelet count of 9. He has had small reddish spots on his lower extremities for a few months and states he has been bruising easily for the past year. He developed 3 small areas of subcutaneous bleeding on his RLE, with a blister-like appearance, and scheduled an appt with his primary MD therefore. Labs were ordered and returned with the above platelet count. Initial labs confirm a platelet count of 7 and mildly impaired renal function without history of CKD. 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 We will place him on Dexamethasone 40mg daily x 4 days per review of recent lit. With response appropriate response to steroids, he can be considered for AM DC as he does not have active bleeding or anemia. 2) HTN - cont Norvasc and Atenolol 3) Prostatitis - It is likely that his low platelet count preceded his use of Bactrim although we cannot confirm this so that he will be switched to Doxy as an acceptable alternative. He is allergic to Fluoroquinolones. 4) Impaired renal function - chronicity not clear - denies history of - we will provide IVF and recheck AM - this too may be a Bactrim effect. Full code - Prophylaxis contraindicated Total time for this admit including review of labs, meds, imaging - discussion with pt and ER attending 37 min Level of Care Med/Surg Resuscitation Status FULL RESUSCITATION VTE Prophylaxis VTE Risk Assessment Done? Y/N: Yes Risk Level: Low Given or contraindicated: Treatment not tolerated, Contraindicated <Electronically signed by Rene Sellers M.D.> Signed: 12/27/16 [id number] Signed: The status of this report is Signed Hospital Course Patient was in the hospital and placed on corticosteroids. Patient was diagnosed with ITP. His platelets decreased to about 5,000 but then improved after being placed on steroids. This confirmed ITP. There is concern that bactrim may play a role so patient would like his antibiotic switched. Total Time Spent: Greater than 30 minutes This includes examination of the patient, discharge planning, medication reconciliation, and communication with other providers. Discharge Instructions Please refer to the electronic Patient Visit Report (Discharge Instructions) for additional information. Follow-Up As stated in his discharge instructions.
[2016-12-29] MEDS ORDERED: DXY100 PO (16:52)
[2016-12-30] MEDS ORDERED: DEXAMETHASONE INJ 40 MG in DEXTROSE 5% 50ML 50 ML IV SCH (08:00)
== END 2016-12-29 17:23 | disposition home or self-care (01) | DRG 813 ==
LOC: C.EDB 18:44 → C.4E 21:42 → ENRESERV 21:52 → OBSVTOIN 12-28 15:35
PROVIDERS: ADMIT Internal Medicine; ATTEND Internal Medicine Sports Medicine
DX: D69.3 Immune thrombocytopenic purpura (principal); N41.9 Inflammatory disease of prostate, unspecified; I10 Essential (primary) hypertension; N28.9 Disorder of kidney and ureter, unspecified; T37.0X5A Adverse effect of sulfonamides, initial encounter; Z82.49 Family history of ischemic heart disease and other diseases of the circulatory system; Z79.2 Long term (current) use of antibiotics

== ENCOUNTER 2017-02-17 04:32 | Emergency (ER) | payer OTHER, MEDICARE ==
[~2017-02-17] VITALS: Ht 167.6 cm; Wt 79.2 kg
[~2017-02-17 04:32] MED LIST: AMLO-114 PO; ATEN50TA8 PO; DXY100 PO
[2017-02-17 04:35] VITALS: Ht 167.6 cm; Wt 79.2 kg
--- NOTE | 2017-02-17 05:00 | EMERGENCY ROOM VISIT NOTE ---
History Report prepared by Mitali: Bart Kline Under the Supervision of: Dr. Prema Sharma D.O. First contact with patient: 04:42 Chief Complaint: FEVER Stated Complaint: FEVER History of Present Illness The patient is a 76 year old male who presents to the Emergency Room with complaints of a persistent fever that reached 101 prior to arrival. He was diagnosed with "low grade" Non-Hodgkin's Lymphoma 6 weeks ago. He started chemotherapy last week, and has had two treatments total. Per patient, he has associated symptoms of chills with shaking. Shaking did not prolong for more than 30 minutes. He took two 500mg Tylenol which did not resolve the symptoms. Patient denies headache, change in vision, fevers, chest pain, shortness of breath, nausea, vomiting, diarrhea, pain with urination, and melena. Patient adds that he has not been around anyone sick recently. His oncologist advised him to seek treatment in the ER. Source of History: patient Onset: 2am Symptom Intensity: 101 degrees Quality: other (fever) Timing: other (persistent) Associated Symptoms: + chills, No cough, No nausea, No vomiting, No diarrhea , No urinary symptoms Note: Patient states he was shaking. Review of Systems See HPI for pertinent positives & negatives. A total of 10 systems reviewed and were otherwise negative. Past Medical & Surgical Medical Problems: (1) HTN (hypertension) (2) Non-Hodgkin lymphoma (3) Prostatitis (4) Thrombocytopenia Family History No pertinent known family history. Social History Smoking Status: Never Smoker Occupation Status: retired Current/Historical Medications Scheduled Amlodipine (Norvasc), 10 MG PO DAILY Cephalexin (Keflex), 1 CAP PO BID Miscellaneous Medications Atenolol (Tenormin), 50 MG PO Allergies Coded Allergies: Ciprofloxacin (Verified Allergy, Severe, MUSCLE PROBLEMS, 02/17/17) Morphine (Verified Allergy, Severe, HALLUCINATIONS, 02/17/17) Sulfamethoxazole w/Trimethoprim (Verified Allergy, Severe, HIVES, INTERFERES WITH IMMUNE SYSTEM, 02/18/17) Physical Exam Vital Signs Date Time Temp Pulse Resp B/P (MAP) Pulse Ox O2 Delivery O2 Flow Rate FiO2 02/17/17 07:33 36.7 71 17 129/67 96 02/17/17 06:28 74 17 117/89 99 Room Air 02/17/17 05:32 79 22 96 02/17/17 05:31 128/69 02/17/17 05:03 82 02/17/17 05:02 79 24 02/17/17 04:35 36.7 91 18 116/74 94 Room Air Physical Exam GENERAL: alert, well appearing, well nourished, no distress, non-toxic EYE EXAM: normal conjunctiva, PERRL and EOM's grossly intact OROPHARYNX: no exudate, no erythema, lips, buccal mucosa, and tongue normal and mucous membranes are moist NECK: supple, no nuchal rigidity, no adenopathy, non-tender LUNGS: Clear to auscultation. Normal chest wall mechanics HEART: no murmurs, S1 normal and S2 normal ABDOMEN: abdomen soft, non-tender, normo-active bowel sounds, no masses, no rebound or guarding. BACK: Back is symmetrical on inspection and there is no deformity, no midline tenderness, no CVA tenderness. SKIN: no rashes and no bruising UPPER EXTREMITIES: upper extremities are grossly normal. LOWER EXTREMITIES: No pitting edema. NEURO EXAM: Normal sensorium, cranial nerves II-XII grossly intact, normal speech, no gross weakness of arms, no gross weakness of legs. Medical Decision & Procedures ER Provider Diagnostic Interpretation: X-Rays were interpreted by me. Chest X-Ray: no cardiomegaly, no effusion, no wide mediastinum, no focal consolidation, unchanged compared to prior Laboratory Results 02/17/17 05:24 Red Blood Count 4.67, Mean Corpuscular Volume 92.3, Mean Corpuscular Hemoglobin 31.5, Mean Corpuscular Hemoglobin Concent 34.1, Mean Platelet Volume , Neutrophils (%) (Auto) 89.1, Lymphocytes (%) (Auto) 1.2, Monocytes (%) (Auto) 9.4, Eosinophils (%) (Auto) 0.0, Basophils (%) (Auto) 0.1, Neutrophils # (Auto) 16.47, Lymphocytes # (Auto) 0.23, Monocytes # (Auto) 1.73, Eosinophils # (Auto) 0.00, Basophils # (Auto) 0.01 02/17/17 05:24 Test 02/17/17 04:59 02/17/17 05:10 02/17/17 05:24 02/17/17 06:46 Urine Color YELLOW Urine Appearance CLEAR (CLEAR) Urine pH 6.5 (4.5-7.5) Urine Specific [place] 1.018 (1.000-1.030) Urine Protein NEG (NEG) Urine Glucose (UA) NEG (NEG) Urine Ketones NEG (NEG) Urine Occult Blood NEG (NEG) Urine Nitrite NEG (NEG) Urine Bilirubin NEG (NEG) Urine Urobilinogen NEG (NEG) Urine Leukocyte Esterase MODERATE (NEG) Urine WBC (Auto) 10-30 /hpf (0-5) Urine RBC (Auto) 0-4 /hpf (0-4) Urine Hyaline Casts (Auto) 1-5 /lpf (0-5) Urine Epithelial Cells (Auto) 10-20 /lpf (0-5) Urine Bacteria (Auto) NEG (NEG) Influenza Type A Antigen Neg for Influ A (NEG) Influenza Type B Antigen Neg for Influ B (NEG) Lactic Acid Level 2.3 mmol/L (0.4-2.0) White Blood Count 18.48 K/uL (4.8-10.8) Red Blood Count 4.67 M/uL (4.7-6.1) Hemoglobin 14.7 g/dL (14.0-18.0) Hematocrit 43.1 % (42-52) Mean Corpuscular Volume 92.3 fL (80-100) Mean Corpuscular Hemoglobin 31.5 pg (25-34) Mean Corpuscular Hemoglobin Concent 34.1 g/dl (32-36) Platelet Count K/uL (130-400) Mean Platelet Volume fL (7.4-10.4) Neutrophils (%) (Auto) 89.1 % Lymphocytes (%) (Auto) 1.2 % Monocytes (%) (Auto) 9.4 % Eosinophils (%) (Auto) 0.0 % Basophils (%) (Auto) 0.1 % Neutrophils # (Auto) 16.47 K/uL (1.4-6.5) Lymphocytes # (Auto) 0.23 K/uL (1.2-3.4) Monocytes # (Auto) 1.73 K/uL (0.11-0.59) Eosinophils # (Auto) 0.00 K/uL (0-0.5) Basophils # (Auto) 0.01 K/uL (0-0.2) RDW Standard Deviation 53.9 fL (36.4-46.3) RDW Coefficient of Variation 16.2 % (11.5-14.5) Immature Granulocyte % (Auto) 0.2 % Immature Granulocyte # (Auto) 0.04 K/uL (0.00-0.02) Prothrombin Time 11.8 SECONDS (9.0-12.0) Prothromb Time International Ratio 1.1 (0.9-1.1) Anion Gap 5.0 mmol/L (3-11) Est Creatinine Clear Calc Drug Dose 60.6 ml/min Estimated GFR () 82.8 Estimated GFR (Non- 71.4 BUN/Creatinine Ratio 30.3 (10-20) Calcium Level 8.9 mg/dl (8.5-10.1) Magnesium Level 1.9 mg/dl (1.8-2.4) Total Bilirubin 0.5 mg/dl (0.2-1) Aspartate Amino Transf (AST/SGOT) 16 U/L (15-37) Alanine Aminotransferase (ALT/SGPT) 64 U/L (12-78) Alkaline Phosphatase 45 U/L (45-117) Total Protein 5.8 gm/dl (6.4-8.2) Albumin 2.7 gm/dl (3.4-5.0) Globulin 3.1 gm/dl (2.5-4.0) Albumin/Globulin Ratio 0.9 (0.9-2) Lipase 343 U/L (73-393) Platelet Count, Citrate 125 10^3/uL (130-400) Laboratory results per my review. Medications Administered Medications (Trade) Dose Ordered Sig/Brandi Route Start Time Stop Time Status Last Admin Dose Admin Sodium Chloride 500 ml @ 999 mls/hr Q31M STAT IV 02/17/17 06:35 02/17/17 07:05 DC 02/17/17 06:49 999 MLS/HR Ceftriaxone Sodium (Rocephin Inj) 1 gm NOW STAT IV 02/17/17 06:40 02/17/17 06:41 DC 02/17/17 06:49 1 GM ECG Indication: other (Fever) Rate (beats per minute): 76 Rhythm: normal sinus Findings: no acute ischemic change, no ectopy, other (normal axis and normal intervals) ED Course 0450: The patient was evaluated in room B2. A complete history and physical exam was performed. 0635: Sodium Chloride 500 ml @ 999 mls/hr IV 0640: Rocephin Inj 1gm IV 0642: Upon reevaluation, the patient is feeling better. I discussed the findings and the treatment plan with the patient. He verbalizes agreement and understanding. He was discharged home. Medical Decision Differential diagnosis: Etiologies such as viral syndrome, otitis, pharyngitis, pneumonia, influenza, meningitis, urinary tract infection, sepsis, bacteremia, as well as others were entertained. Patient well-appearing here without complaints at time of presentation despite description of episode of rigors at home. Patient currently receiving chemotherapy as well as daily prednisone. Cultures drawn and sent, labs otherwise reassuring. Leukocytosis likely combination of infection as well as steroid use. Patient was stable vital signs throughout, doubt bacteremia/ sepsis. Case discussed with patient's oncologist who advised the patient to come in. He is comfortable with the patient returning home and will follow-up culture results. Patient given 1 g of IV Rocephin here. Discussed with patient close monitoring of symptoms at home, symptoms to watch and return for, he verbalized understanding was agreeable with plan. Patient with no GI symptoms to warrant additional GI or abdominal imaging at this time. Patient likely with early UTI, no other symptoms to suggest recurrence of his prostatitis which she has previously had. Medication Reconcilliation Current Medication List: was personally reviewed by me Blood Pressure Screening Patient's blood pressure: Normal blood pressure Blood pressure disposition: Did not require urgent referral Consults Time Called: 06 Consulting Physician: Dr. Kadeem Durbin - Oncology Returned Call: [phone] Dr. Durbin recommends to give the patient 1gm of Rocephin in the ED, discharge him home with Keflex, and to have him cut down on prednisone Impression Primary Impression: Fever Additional Impression: UTI (urinary tract infection) Scribe Attestation The scribe's documentation has been prepared under my direction and personally reviewed by me in its entirety. I confirm that the note above accurately reflects all work, treatment, procedures, and medical decision making performed by me. Departure Information Dispostion Home / Self-Care Prescriptions Cephalexin (KEFLEX) 500 Mg Cap 1 CAP PO BID for 7 Days, #14 CAP Prov: Prema Sharma, DO 02/17/17 Referrals No Doctor, Assigned (PCP) Patient Instructions My [facility] Additional Instructions Please follow-up with Dr. Durbin as scheduled. Please take the antibiotic as prescribed. Please drink plenty of water. Please cut your steroids down to 20 mg from 40 mg. If you have any worsening fevers, abdominal pain, back pain, vomiting, dizziness, rash, difficulty urinating, diarrhea, or you have any other new or concerning symptoms, please return to the emergency room. Problem Qualifiers Primary Impression: Fever Fever type: unspecified Qualified Codes: R50.9 - Fever, unspecified Additional Impression: UTI (urinary tract infection) Urinary tract infection type: acute cystitis Hematuria presence: without hematuria Qualified Codes: N30.00 - Acute cystitis without hematuria
[2017-02-17 05:59] LABS: URINE APPEARANCE CLEAR (CLEAR); URINE BILIRUBIN NEG (NEG); URINE COLOR YELLOW; URINE NITRITE NEG (NEG); URINE PH 6.5 (4.5-7.5); URINE SPECIFIC GRAVITY 1.018 (1.000-1.030); UROBILINOGEN NEG (NEG); ZZUR CULT IF INDIC CLEAN CATCH YES
[2017-02-17 06:01] LABS: MANUAL MICROSCOPIC REQUIRED? NO; REVIEW REQ? NO
[2017-02-17 06:05] LABS: INR 1.1 (0.9-1.1); PROTHROMBIN TIME (PATIENT) 11.8 SECONDS (9.0-12.0)
[2017-02-17 06:18] LABS: BUN/CREATININE RATIO 30.3 (10-20); CALCIUM 8.9 mg/dl (8.5-10.1); CREATININE 1.01 mg/dl (0.60-1.40); MAGNESIUM 1.9 mg/dl (1.8-2.4); POTASSIUM 3.9 mmol/L (3.5-5.1)
[2017-02-17 06:20] LABS: ALB/GLOB RATIO 0.9 (0.9-2)
[2017-02-17 06:25] LABS: HEMATOCRIT 43.1 % (42-52); MEAN CELL VOLUME 92.3 fL (80-100); MEAN CORPUSCULAR HEMOGLOBIN 31.5 pg (25-34); MEAN CORPUSCULAR HGB CONC 34.1 g/dl (32-36); RED BLOOD COUNT 4.67 M/uL (4.7-6.1); WHITE BLOOD COUNT 18.48 K/uL (4.8-10.8)
[2017-02-17] MEDS ORDERED: SODIUM CHLORIDE 0.9% 500ML 500 ML IV STA (06:35)
[2017-02-17] MEDS ORDERED: CEFTRIAXONE SOD INJ 1 GM ADDVIAL IV STA (06:40)
[2017-02-17] MEDS ORDERED: CEPH-571 PO (07:10)
[2017-02-17 07:13] LABS: BASO % 0.1 %; BASO ABS # 0.01 K/uL (0-0.2); COMPLETE YES; IG% 0.2 %; LYMPH % 1.2 %; LYMPH ABS # 0.23 K/uL (1.2-3.4); MONO % 9.4 %; NEUT % 89.1 %
[2017-02-17 07:33] VITALS: BP 129/67; PULSE 71; TEMP 36.7; O2SAT 96
--- NOTE | 2017-02-17 07:35 | DIAGNOSTIC IMAGING REPORT ---
CHEST 2 VIEWS ROUTINE HISTORY: fever COMPARISON: Chest 01/17/2016. FINDINGS: Stable 5 mm nodular density within the right midlung zone. This favors a calcified granuloma. The lungs are otherwise clear. The heart is normal in size. No pleural effusions. No pneumothorax. IMPRESSION: No significant change compared to the prior study. No acute process. Electronically signed by: Mele Moore M.D. 02/17/2017 7:33 AM Dictated Date/Time: 02/17/2017 7:32 AM
== END 2017-02-17 07:35 | disposition home or self-care (01) ==
LOC: C.EDB 04:33
DX: R50.9 Fever, unspecified (principal); N30.00 Acute cystitis without hematuria; C85.90 Non-Hodgkin lymphoma, unspecified, unspecified site; I10 Essential (primary) hypertension

== ENCOUNTER 2017-02-17 23:29 | Inpatient (IN) | payer OTHER, MEDICARE ==
[~2017-02-17] VITALS: Ht 167.6 cm; Wt 79.3 kg
[~2017-02-17 23:29] MED LIST changes: +CEPH-571 PO
[2017-02-17] MEDS ORDERED: SODIUM CHLORIDE 0.9% 1000ML 1,000 ML IV STA (23:40)
--- NOTE | 2017-02-17 23:57 | EMERGENCY ROOM VISIT NOTE ---
History Report prepared by Mitali: Vernell Dowling Under the Supervision of: Johnathan PimentelO. First contact with patient: 23:33 Chief Complaint: REFERRED BY DOCTOR Stated Complaint: WAS TOLD BY HIS DOCTOR TO COME IN [facility] History of Present Illness The patient is a 76 year old male who presents to the Emergency Room with complaints of a doctor referral today. The patient was recently diagnosed with non-Hodgkins lymphoma and started on Rituxan. He has had 2 doses and they have been monitoring platelets. The patient felt fine until last night when he had an episode of shaking and chills. He called Dr. Durbin who instructed him to comer to the ED. He had a work-up in the ED and was thought to have an evolving UTI, was given IV Rocephin and then discharged after discussion with Dr. Durbin on Keflex. The patient was found to have gram negative cultures and was referred back to the ED. The patient states that he currently feels great and that he does not have any new symptoms since last night. The patient denies urinary symptoms. He reports some constipation today. Source of History: patient Onset: today Position: other (global) Quality: other (referral) Associated Symptoms: + chills, No urinary symptoms Review of Systems See HPI for pertinent positives & negatives. A total of 10 systems reviewed and were otherwise negative. Past Medical & Surgical Medical Problems: (1) HTN (hypertension) (2) Non-Hodgkin lymphoma (3) Prostatitis (4) Thrombocytopenia Family History No pertinent family history stated. Social History Smoking Status: Never Smoker Marital Status: Housing Status: lives with significant other Occupation Status: retired Current/Historical Medications Scheduled Amlodipine (Norvasc), 10 MG PO DAILY Cephalexin (Keflex), 1 CAP PO BID Miscellaneous Medications Atenolol (Tenormin), 50 MG PO Allergies Coded Allergies: Ciprofloxacin (Verified Allergy, Severe, MUSCLE PROBLEMS, 02/17/17) Morphine (Verified Allergy, Severe, HALLUCINATIONS, 02/17/17) Sulfamethoxazole w/Trimethoprim (Verified Allergy, Severe, HIVES, INTERFERES WITH IMMUNE SYSTEM, 02/18/17) Physical Exam Vital Signs Date Time Temp Pulse Resp B/P (MAP) Pulse Ox O2 Delivery O2 Flow Rate FiO2 02/17/17 23:36 36.4 82 18 132/86 98 Room Air Physical Exam GENERAL: alert, well appearing, well nourished, no distress, non-toxic EYE EXAM: normal conjunctiva, PERRL and EOM's grossly intact OROPHARYNX: no exudate, no erythema, lips, buccal mucosa, and tongue normal and mucous membranes are moist NECK: supple, no nuchal rigidity, no adenopathy, non-tender LUNGS: Clear to auscultation. Normal chest wall mechanics HEART: no murmurs, S1 normal and S2 normal ABDOMEN: abdomen soft, non-tender, normo-active bowel sounds, no masses, no rebound or guarding. BACK: Back is symmetrical on inspection and there is no deformity, no midline tenderness, no CVA tenderness. SKIN: no rashes and no bruising UPPER EXTREMITIES: upper extremities are grossly normal. LOWER EXTREMITIES: No pitting edema. NEURO EXAM: Normal sensorium, cranial nerves II-XII grossly intact, normal speech, no gross weakness of arms, no gross weakness of legs. = Medical Decision & Procedures Laboratory Results 02/18/17 00:11 Red Blood Count 4.27, Mean Corpuscular Volume 93.0, Mean Corpuscular Hemoglobin 31.1, Mean Corpuscular Hemoglobin Concent 33.5, Mean Platelet Volume 10.7 02/18/17 00:11 Test 02/18/17 00:11 White Blood Count 13.81 K/uL (4.8-10.8) Red Blood Count 4.27 M/uL (4.7-6.1) Hemoglobin 13.3 g/dL (14.0-18.0) Hematocrit 39.7 % (42-52) Mean Corpuscular Volume 93.0 fL (80-100) Mean Corpuscular Hemoglobin 31.1 pg (25-34) Mean Corpuscular Hemoglobin Concent 33.5 g/dl (32-36) Platelet Count 106 K/uL (130-400) Mean Platelet Volume 10.7 fL (7.4-10.4) RDW Standard Deviation 55.6 fL (36.4-46.3) RDW Coefficient of Variation 16.6 % (11.5-14.5) Neutrophils % (Manual) 93.8 % Lymphocytes % (Manual) 1.8 % Monocytes % (Manual) 4.4 % Neutrophils # (Manual) 12.95 K/uL (1.4-6.5) Total Absolute Neutrophils 12.95 K/uL (1.4-6.5) Lymphocytes # (Manual) 0.25 K/uL (1.2-3.4) Total Absolute Lymphocytes 0.25 K/uL (1.2-3.4) Monocytes # (Manual) 0.61 K/uL (0.11-0.59) Platelet Estimate DECREASED Red Blood Cell Morphology Unremarkable Anion Gap 8.0 mmol/L (3-11) Est Creatinine Clear Calc Drug Dose 54.0 ml/min Estimated GFR () 71.5 Estimated GFR (Non- 61.7 BUN/Creatinine Ratio 27.4 (10-20) Calcium Level 8.3 mg/dl (8.5-10.1) Total Bilirubin 0.3 mg/dl (0.2-1) Aspartate Amino Transf (AST/SGOT) 52 U/L (15-37) Alanine Aminotransferase (ALT/SGPT) 124 U/L (12-78) Alkaline Phosphatase 58 U/L (45-117) Total Protein 5.5 gm/dl (6.4-8.2) Albumin 2.4 gm/dl (3.4-5.0) Globulin 3.1 gm/dl (2.5-4.0) Albumin/Globulin Ratio 0.8 (0.9-2) Chemistry Specimen Hemolysis Laboratory results per my review. Medications Administered Medications (Trade) Dose Ordered Sig/Brandi Route Start Time Stop Time Status Last Admin Dose Admin Sodium Chloride 1,000 ml @ 999 mls/hr Q1H1M STAT IV 02/17/17 23:40 02/18/17 00:40 DC 02/18/17 00:13 999 MLS/HR Ceftriaxone Sodium (Rocephin Inj) 1 gm NOW STAT IV 02/18/17 00:05 02/18/17 00:59 DC 02/18/17 00:15 1 GM Piperacillin Sod/ Tazobactam Sod (Zosyn Iv) 4.5 gm NOW STAT IV 02/18/17 00:36 02/18/17 00:39 DC 02/18/17 00:47 4.5 GM ED Course 2335: The patient was evaluated in room A3. A complete history and physical exam was performed. 2340: Ordered Sodium Chloride 1,000 ml @ 999 mls/hr IV. 0005: Ordered Rocephin Inj 1 gm IV. 0007: Upon reevaluation, the patient is resting. I discussed the findings and the treatment plan with the patient. He expresses agreement and understanding. I spoke with Dr. Taylor-Resident of the [facility] Hospitalist Service. He will be evaluated for further management. Medical Decision Differential diagnosis: Etiologies such as viral syndrome, otitis, pharyngitis, pneumonia, influenza, meningitis, urinary tract infection, sepsis, bacteremia, as well as others were entertained. Medication Reconcilliation Current Medication List: was personally reviewed by me Blood Pressure Screening Patient's blood pressure: Normal blood pressure Consults Time Called: [id number] Consulting Physician: Dr. Taylor-Resident Returned Call: 6 I reviewed the patient's case with Dr. Taylor. He will evaluate the patient for further management. Impression Primary Impression: Bacteremia Additional Impressions: UTI (urinary tract infection) Non-Hodgkin lymphoma Thrombocytopenia Scribe Attestation The scribe's documentation has been prepared under my direction and personally reviewed by me in its entirety. I confirm that the note above accurately reflects all work, treatment, procedures, and medical decision making performed by me. Departure Information Dispostion Being Evaluated By Hospitalist Referrals Kadeem Durbin D.O. (PCP) Patient Instructions My [facility] Health Problem Qualifiers Additional Impressions: UTI (urinary tract infection) Urinary tract infection type: acute cystitis Hematuria presence: without hematuria Qualified Codes: N30.00 - Acute cystitis without hematuria Non-Hodgkin lymphoma Non-Hodgkin lymphoma type: unspecified type Lymphoma site: unspecified region Qualified Codes: C85.90 - Non-Hodgkin lymphoma, unspecified, unspecified site
[2017-02-18] VITALS (7 sets, daily range): BP systolic 117–158; BP diastolic 64–87; PULSE 63–80; TEMP 36.6–36.9; O2SAT 94–98; Ht 167.6 cm; Wt 79.3 kg
[2017-02-18] MEDS ORDERED: CEFTRIAXONE SOD INJ 1 GM ADDVIAL IV STA (00:05)
[2017-02-18] MEDS ORDERED: PIPERACILLIN/TAZOBACTAM 4.5 GM/100ML D5W IV STA (00:36)
[2017-02-18] MEDS ORDERED: PIPERACILLIN/TAZOBACTAM 4.5 GM/100ML D5W ONE (00:39)
[2017-02-18 00:43] LABS: ALB/GLOB RATIO 0.8 (0.9-2); BUN/CREATININE RATIO 27.4 (10-20); CALCIUM 8.3 mg/dl (8.5-10.1); CREATININE 1.14 mg/dl (0.60-1.40); POTASSIUM 3.8 mmol/L (3.5-5.1)
[2017-02-18 00:54] LABS: HEMATOCRIT 39.7 % (42-52); MEAN CORPUSCULAR HEMOGLOBIN 31.1 pg (25-34); RED BLOOD COUNT 4.27 M/uL (4.7-6.1); WHITE BLOOD COUNT 13.81 K/uL (4.8-10.8)
[2017-02-18 01:04] LABS: MEAN CORPUSCULAR HGB CONC 33.5 g/dl (32-36); MEAN PLATELET VOLUME 10.7 fL (7.4-10.4); PLATELET COUNT 106 K/uL (130-400)
[2017-02-18 01:08] LABS: COMPLETE YES; LYMPH ABS # 0.25 K/uL (1.2-3.4); LYMPHOCYTE % 1.8 %; NEUTROPHILS % 93.8 %; PLT ESTIMATE DECREASED
[2017-02-18] MEDS ORDERED: TAMSULOSIN HCL 0.4 MG CAP ONE (01:11)
--- NOTE | 2017-02-18 01:11 | History and Physical ---
History & Physical Date & Time of Service: Feb 18, 2017 at 00:47 Chief Complaint: Was Told By His Doctor To Come In [facility] Mey Primary Care Physician: Kadeem Durbin D.O. History of Present Illness Source: patient, family, clinic records, hospital records 76M with a PMHx of non Hodgkin's Lymphoma on weekly Rituxan injections p/w E. Coli Bacteremia. He was called back to the ER for positive blood cultures. He was seen in the ER 24 hours previously for fevers and chills and given 1 dose of Rocephin and discharged on Keflex. The patient currently has no complaints. He has been drinking a lot of water as he was instructed. He has a history of prostatitis but at present denies any discomfort while sitting. He has had a UTI in the past that was positive for E. Coli. Denies dysuria, denies cough, denies chest pain, denies dyspnea on exertion, denies any skin lesions, denies hematuria, denies abnormal urinary discharge. Past Medical/Surgical History Medical Problems: (1) HTN (hypertension) Status: Chronic (2) Non-Hodgkin lymphoma Status: Chronic (3) Prostatitis Status: Resolved Family History Noncontributory Social History Smoking Status: Never Smoker Smokeless Tobacco Use: No Alcohol Use: none Drug Use: none Marital Status: Housing status: lives with family Occupational Status: retired Immunizations History of Influenza Vaccine: Unknown History of Tetanus Vaccine?: Unknown History of Pneumococcal: Unknown History of Hepatitis B Vaccine: Unknown Multi-Drug Resistant Organisms History of MDRO: No Allergies Coded Allergies: Ciprofloxacin (Verified Allergy, Severe, MUSCLE PROBLEMS, 02/17/17) Morphine (Verified Allergy, Severe, HALLUCINATIONS, 02/17/17) Sulfamethoxazole w/Trimethoprim (Verified Allergy, Severe, HIVES, INTERFERES WITH IMMUNE SYSTEM, 02/18/17) Home Medications Scheduled Amlodipine (Norvasc), 10 MG PO DAILY Cephalexin (Keflex), 1 CAP PO BID Miscellaneous Medications Atenolol (Tenormin), 50 MG PO Review of Systems Constitutional: No fever, No chills, No weight loss Respiratory: No cough, No sputum, No wheezing, No shortness of breath, No dyspnea on exertion Cardiovascular: No orthopnea Abdomen: No pain, No nausea, No vomiting, No diarrhea Musculoskeletal: No joint pain Genitourinary - Male: + urinary frequency, No hematuria, No dysuria, No urinary urgency, No urinary hesitancy, No urinary retention, No urinary incontinence Integumentary: No rash Physical Exam Vital Signs Date Time Temp Pulse Resp B/P (MAP) Pulse Ox O2 Delivery O2 Flow Rate FiO2 02/17/17 23:36 36.4 82 18 132/86 98 Room Air General Appearance: WD/WN, no apparent distress Neck: supple Respiratory/Chest: chest non-tender, lungs clear, normal breath sounds, no respiratory distress, no accessory muscle use Cardiovascular: regular rate, rhythm, no edema, no gallop, no JVD, no murmur, normal peripheral pulses Abdomen/GI: normal bowel sounds, non tender, soft, no organomegaly, no pulsatile mass Back: no CVA tenderness Extremities/Musculoskelatal: normal inspection, no calf tenderness, no pedal edema 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, no motor/sensory deficits, alert, normal mood/affect, oriented x 3 Diagnostics Laboratory Results Results Past 24 Hours Test 02/18/17 00:11 Range/Units Sodium Level 138 136-145 mmol/L Potassium Level 3.8 3.5-5.1 mmol/L Chloride Level 105 98-107 mmol/L Carbon Dioxide Level 25 21-32 mmol/L Anion Gap 8.0 3-11 mmol/L Blood Urea Nitrogen 31 7-18 mg/dl Creatinine 1.14 0.60-1.40 mg/dl Est Creatinine Clear Calc Drug Dose 54.0 ml/min Estimated GFR () 71.5 Estimated GFR (Non- 61.7 BUN/Creatinine Ratio 27.4 10-20 Random Glucose 141 70-99 mg/dl Calcium Level 8.3 8.5-10.1 mg/dl Total Bilirubin 0.3 0.2-1 mg/dl Aspartate Amino Transf (AST/SGOT) 52 15-37 U/L Alanine Aminotransferase (ALT/SGPT) 124 12-78 U/L Alkaline Phosphatase 58 45-117 U/L Total Protein 5.5 6.4-8.2 gm/dl Albumin 2.4 3.4-5.0 gm/dl Globulin 3.1 2.5-4.0 gm/dl Albumin/Globulin Ratio 0.8 0.9-2 Microbiology Results 02/18/17 Blood Culture, Received Pending 02/18/17 Blood Culture, Received Pending Impression Assessment and Plan 76M with a PMHx of non Hodgkin's Lymphoma on weekly Rituxan injections p/w E. Coli Bacteremia. He was called back to the ER for positive blood cultures. He has no complaints. He was given Rocephin again today (and yesterday) in the ER. We will broaden coverage to Zosyn and await sensitivities. E. Coli Bacteremia from Blood Cultures taken on 02/17/2017 Patient's fevers and chills have resolved x 24 hours. WBC elevated from being on Steroids to combat the effects of Rituxan. They are downtrending today at 13,000 from 18,000 yesterday. Likely urinary source because of abnormal UA on 02/17/2017. +LE and +WBC. Note two Allergies - Cipro (muscle problems) and Bactrim (Hives) Follow up Blood cultures from 02/17/2017 and repeat blood cultures today. started on Zosyn Day #[address] Durbin and gets weekly Rituxan Injections. h/o enlarged prostate Tamsulosin 0.4mg now and then QHS HTN c/w Norvasc 10mg Po dialy c/w Tenormin 50 MG PO daily Dispo: Med Surg, Obs, no needs on discharge. FULL CODE Attending addendum: I have physically seen this patient, have supervised the medical residents activities, and agree with the H&P unless as otherwise noted. Assessment and Plan: Gram-negative bacteremia from previous cultures early on 02/17--presumptive UTI/ history of Escherichia coli bacteremia-- Admitted to the medical surgical floor Change ceftriaxone IV started in the ED to Zosyn IV until culture and sensitivity reports return BPH/possible prostatitis-- Start tamsulosin 0.4 mg now and at at bedtime Hypertension-- Continue Norvasc 10 mg daily and Tenormin 50 mg by mouth daily, both with hold parameters. Non-Hodgkin's lymphoma-- Recently begun treatment with Rituxan injections supervised by Dr. Durbin. Level of Care Med/Surg Advanced Directives Existing Advance Directive: No Existing Living Will: No Existing Power of Tube Teller: No Resuscitation Status FULL RESUSCITATION VTE Prophylaxis VTE Risk Assessment Done? Y/N: Yes Risk Level: Moderate Given or contraindicated: SCD's Social Service Consult Cancer Patient Under [place] Resident Involvement: Resident Care Provided Care Provided: Adult [facility] Medicine
[2017-02-18] MEDS ORDERED: TAMSULOSIN HCL 0.4 MG CAP PO STA (01:14)
[2017-02-18] MEDS ORDERED: ONDANSETRON INJ 2 MG/ML 2 ML VIAL IV PRN (01:15)
[2017-02-18] MEDS ORDERED: ACETAMINOPHEN 325 MG TAB PO PRN (01:15)
[2017-02-18] MEDS ORDERED: POLYETHYLENE (MIRALAX) 17 GM PACK PO PRN (01:15)
[2017-02-18] MEDS ORDERED: ZOLPIDEM TARTRATE 5 MG TAB PO PRN ×2 (01:15)
[2017-02-18] MEDS ORDERED: MAGNESIUM HYDROXIDE SUSP 30 ML UDC PO PRN (01:15)
[2017-02-18] MEDS ORDERED: ALUMINUM/MAGNESIUM/SIMETH (MAALOX MAX) 30 ML UDC PO PRN (01:15)
[2017-02-18] MEDS ORDERED: IV FLUIDS COMPLETED PRN (01:45)
[2017-02-18] MEDS ORDERED: PIPERACILL/TAZOBAC CONSULT ACTIVE PRN (02:00)
[2017-02-18] MEDS: PIPERACILL/TAZOBAC IV 3.375 GM in DEXTROSE 5% 100ML 100 ML IV SCH ×3 (05:44→22:01)
[2017-02-18] MEDS: AMLODIPINE BESYLATE 5 MG TAB PO SCH (08:08)
[2017-02-18] MEDS: HEPARIN SOD 5000 UNIT/0.5 ML CARP SQ SCH ×2 (08:09→20:41)
--- NOTE | 2017-02-18 12:51 | Oncology Consultation ---
Oncology/Heme Consultation Date of Consultation: Feb 18, 2017. Attending Physician: Michaelle Jerry M.D. Reason for Consultation: History of low-grade lymphoma History of Present Illness We first came to know Mr. Tamayo a few weeks ago when he presented with an isolated thrombocytopenia. 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 This led to a bone marrow biopsy as further treatment alternatives were pursued. 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 With that then he was placed on Rituxan and has had 2 of anticipated 4 treatments with the last Rituxan being last Sunday. He has been on decreasing doses of prednisone along with that. He had called 2 days ago with fever and chills. He presented to the emergency room with a possibility of an underlying urinary tract infection was entertained. He was given an IV cephalosporin and sent home with oral antibiotic prescription. A blood culture did turn positive for gram-negative bacilli necessitating a trip back to the emergency room and subsequent admission for IV antibiotics for now gram- negative sepsis. He is doing well. He states he feels quite well. He denies diarrhea he denies any nausea or vomiting. He denies any further fever. He denies any overt bleeding. This morning's platelet count is 103,000. Past Medical/Surgical History Medical Problems: (1) Acute ITP Status: Acute (2) Bacteremia Status: Acute (3) Fever Status: Acute (4) Non-Hodgkin lymphoma Status: Chronic (5) UTI (urinary tract infection) Status: Acute (6) UTI (urinary tract infection) Status: Acute Social History Smoking Status: Never Smoker Smokeless Tobacco Use: No Alcohol Use: none Drug Use: none Marital Status: Housing Status: lives with significant other Occupation Status: retired Allergies Coded Allergies: Ciprofloxacin (Verified Allergy, Severe, MUSCLE PROBLEMS, 02/17/17) Morphine (Verified Allergy, Severe, HALLUCINATIONS, 02/17/17) Sulfamethoxazole w/Trimethoprim (Verified Allergy, Severe, HIVES, INTERFERES WITH IMMUNE SYSTEM, 02/18/17) Home Medications Scheduled Amlodipine (Norvasc), 10 MG PO DAILY Cephalexin (Keflex), 1 CAP PO BID Miscellaneous Medications Atenolol (Tenormin), 50 MG PO Current Inpatient Medications Current Inpatient Medications Medications (Trade) Dose Ordered Sig/Brandi Route Start Time Stop Time Status Last Admin Dose Admin Tamsulosin HCl (Flomax Cap) 0.4 mg HS PO 02/18/17 21:00 03/20/17 20:59 Piperacillin Sod/ Tazobactam Sod 3.375 gm/Dextrose 115 ml @ 28.75 mls/ hr Q8 IV 02/18/17 06:00 03/04/17 05:59 02/18/17 05:44 28.75 MLS/HR Amlodipine Besylate (Norvasc Tab) 10 mg DAILY PO 02/18/17 08:00 03/20/17 08:59 02/18/17 08:08 10 MG Atenolol (Tenormin Tab) 50 mg DAILY PO 02/18/17 08:00 03/20/17 08:59 02/18/17 08:07 50 MG Acetaminophen (Tylenol Tab) 650 mg Q4H PRN PO 02/18/17 01:15 03/20/17 01:14 Al Hydrox/Mg Hydrox/Simethicone (Maalox Max Susp) 15 ml Q4H PRN PO 02/18/17 01:15 03/20/17 01:14 Magnesium Hydroxide (Milk Of Magnesia Susp) 30 ml Q6H PRN PO 02/18/17 01:15 03/20/17 01:14 Polyethylene (Miralax Powder Packet) 17 gm DAILY PRN PO 02/18/17 01:15 03/20/17 01:14 Zolpidem Tartrate (Ambien Tab) 5 mg HSZ PRN PO 02/18/17 01:15 03/20/17 01:14 Ondansetron HCl (Zofran Inj) 4 mg Q6H PRN IV 02/18/17 01:15 03/20/17 01:14 Heparin Sodium (Porcine) (Heparin Sq 5000 Unit/0.5ml) 5,000 unit Q12H SQ 02/18/17 09:00 03/20/17 08:59 Miscellaneous (Iv Fluids Completed) 1 ea PRN PRN N/A 02/18/17 01:45 02/18/18 01:44 Piperacillin Sod/ Tazobactam Sod (Consult) 1 ea UD PRN N/A 02/18/17 02:00 03/20/17 01:59 Review of Systems Constitutional: Negative for weight loss, night sweats, or fever Eyes: Negative for event change of vision ENT: Negative for epistaxis, nasal discharge, sore throat, or deafness Cardiovascular: Negative for chest pain, palpitations, dizziness, diaphoresis Respiratory: Negative for new shortness of breath,hemoptysis, or purulent cough Gastrointestinal: Negative for diarrhea, hematemesis, melena, nausea, vomiting , or dyspepsia Integumentary (skin): Negative for rash or jaundice discoloration Genitourinary: Negative for urinary frequency, hematuria, or dysuria Neurological: Negative for weakness, seizure activity, headache, or dizziness Lymphatic/Hematologic: Negative for petechiae, bleeding or new adenopathy Musculoskeletal: Negative for new joint or back pain Allergic/Immunologic: Negative for unusual rash or pruritis. Physical Exam Date Time Temp Pulse Resp B/P (MAP) Pulse Ox O2 Delivery O2 Flow Rate FiO2 02/18/17 11:07 36.9 69 16 132/77 (95) 97 02/18/17 09:00 Room Air 02/18/17 07:15 36.8 76 16 158/77 (104) 98 Room Air 02/18/17 04:00 Room Air 02/18/17 01:30 36.6 69 18 145/76 94 Room Air 02/18/17 01:20 79 18 128/72 98 02/17/17 23:36 36.4 82 18 132/86 98 Room Air Constitutional: vitals are stable. Eyes: Eyes are ANISHA EOMI without conjuctival erythema or icterus. ENT: External examination was negative for masses. Neck: Negative for masses or palpable thyromegaly Respiratory: Lung sounds were generally clear bilaterally Cardiovascular: Heart was RRR without significant murmur, gallops aoe rubs Gastrointestinal: No palpable hepatic or splenomegaly. The abdomen was soft with normal bowel sounds. Lymphatic system: there was no palpable peripheral lymphadenopathy Musculoskeletal System: The musculoskeletal system seemed concordant with age. Skin: The skin was negative for jaundice. Neurologic exam: The exam was negative for any focal findings. Deep tendon reflexes were equal and symmetrical. Psychiatric exam: Was essentially negative with normal mood and effect. Extremities: Negative for edema erythema Laboratory Results Last 24 Hours Test 02/18/17 00:11 White Blood Count 13.81 K/uL Red Blood Count 4.27 M/uL Hemoglobin 13.3 g/dL Hematocrit 39.7 % Mean Corpuscular Volume 93.0 fL Mean Corpuscular Hemoglobin 31.1 pg Mean Corpuscular Hemoglobin Concent 33.5 g/dl Platelet Count 106 K/uL Mean Platelet Volume 10.7 fL RDW Standard Deviation 55.6 fL RDW Coefficient of Variation 16.6 % Neutrophils % (Manual) 93.8 % Lymphocytes % (Manual) 1.8 % Monocytes % (Manual) 4.4 % Neutrophils # (Manual) 12.95 K/uL Total Absolute Neutrophils 12.95 K/uL Lymphocytes # (Manual) 0.25 K/uL Total Absolute Lymphocytes 0.25 K/uL Monocytes # (Manual) 0.61 K/uL Platelet Estimate DECREASED Red Blood Cell Morphology Unremarkable Sodium Level 138 mmol/L Potassium Level 3.8 mmol/L Chloride Level 105 mmol/L Carbon Dioxide Level 25 mmol/L Anion Gap 8.0 mmol/L Blood Urea Nitrogen 31 mg/dl Creatinine 1.14 mg/dl Est Creatinine Clear Calc Drug Dose 54.0 ml/min Estimated GFR () 71.5 Estimated GFR (Non- 61.7 BUN/Creatinine Ratio 27.4 Random Glucose 141 mg/dl Calcium Level 8.3 mg/dl Total Bilirubin 0.3 mg/dl Aspartate Amino Transf (AST/SGOT) 52 U/L Alanine Aminotransferase (ALT/SGPT) 124 U/L Alkaline Phosphatase 58 U/L Total Protein 5.5 gm/dl Albumin 2.4 gm/dl Globulin 3.1 gm/dl Albumin/Globulin Ratio 0.8 Chemistry Specimen Hemolysis Assessment & Plan Low-grade non-Hodgkin's lymphoma with resultant thrombocytopenia Gram Negative sepsis. I am reminded that he has a history in the past of prostatitis and had been taking intermittent Bactrim. In fact it was felt at first that the Bactrim might have been responsible for his original cytopenias. He is now on IV antibiotics. His vitals are stable and is doing well. Next course of Rituxan (third of four planned doses) would be this Sunday but this will be delayed a week. I would ask that prednisone be continued at 10 mg a day for now po with a close watch on his CBC. He was scheduled for a PET CT scan as an outpatient to occur on Sunday of this week and hopefully he will be discharged by then however if he still in the hospital that we may have to settle for just CT scans of the chest abdomen and pelvis. This was being done to further stage his disease (low-grade non- Hodgkin's lymphoma).
[2017-02-18] MEDS ORDERED: NURSING VERBAL MED ORDER ONE (17:15)
--- NOTE | 2017-02-18 17:23 | Family Medicine Progress Note ---
Progress Note Date of Service Feb 18, 2017. Subjective Pt evaluation today including: conversation w/ patient, physical exam, chart review, lab review Pain: denies any discomfort Voiding: no voiding problems Denies any discomfort. F/c improved. Reports slightly increased urinary freq likely from drinking a lot of water. Denies cough, sob, cp, abd pn, n/v, dysuria , hematuria or urinary discharge. Constitutional: No fever, No chills Respiratory: No cough, No shortness of breath Cardiovascular: No chest pain Abdomen: No pain, No nausea, No vomiting, No diarrhea, No constipation Male : + urinary frequency, No dysuria, No hematuria Medications Current Inpatient Medications Medications (Trade) Dose Ordered Sig/Brandi Route Start Time Stop Time Status Last Admin Dose Admin Tamsulosin HCl (Flomax Cap) 0.4 mg HS PO 02/18/17 21:00 03/20/17 20:59 Piperacillin Sod/ Tazobactam Sod 3.375 gm/Dextrose 115 ml @ 28.75 mls/ hr Q8 IV 02/18/17 06:00 03/04/17 05:59 02/18/17 13:55 28.75 MLS/HR Amlodipine Besylate (Norvasc Tab) 10 mg DAILY PO 02/18/17 08:00 03/20/17 08:59 02/18/17 08:08 10 MG Atenolol (Tenormin Tab) 50 mg DAILY PO 02/18/17 08:00 03/20/17 08:59 02/18/17 08:07 50 MG Acetaminophen (Tylenol Tab) 650 mg Q4H PRN PO 02/18/17 01:15 03/20/17 01:14 Al Hydrox/Mg Hydrox/Simethicone (Maalox Max Susp) 15 ml Q4H PRN PO 02/18/17 01:15 03/20/17 01:14 Magnesium Hydroxide (Milk Of Magnesia Susp) 30 ml Q6H PRN PO 02/18/17 01:15 03/20/17 01:14 Polyethylene (Miralax Powder Packet) 17 gm DAILY PRN PO 02/18/17 01:15 03/20/17 01:14 Zolpidem Tartrate (Ambien Tab) 5 mg HSZ PRN PO 02/18/17 01:15 03/20/17 01:14 Ondansetron HCl (Zofran Inj) 4 mg Q6H PRN IV 02/18/17 01:15 03/20/17 01:14 Heparin Sodium (Porcine) (Heparin Sq 5000 Unit/0.5ml) 5,000 unit Q12H SQ 02/18/17 09:00 03/20/17 08:59 Miscellaneous (Iv Fluids Completed) 1 ea PRN PRN N/A 02/18/17 01:45 02/18/18 01:44 Piperacillin Sod/ Tazobactam Sod (Consult) 1 ea UD PRN N/A 02/18/17 02:00 03/20/17 01:59 Miscellaneous Information (Nursing Verbal Med Order) 1 ea ONE ONCE N/A 02/18/17 17:15 02/18/17 17:16 UNV Objective Vital Signs Date Time Temp Pulse Resp B/P (MAP) Pulse Ox O2 Delivery O2 Flow Rate FiO2 02/18/17 14:51 36.6 63 16 138/87 (104) 96 02/18/17 11:07 36.9 69 16 132/77 (95) 97 02/18/17 09:00 Room Air 02/18/17 07:15 36.8 76 16 158/77 (104) 98 Room Air 02/18/17 04:00 Room Air 02/18/17 01:30 36.6 69 18 145/76 94 Room Air 02/18/17 01:20 79 18 128/72 98 02/17/17 23:36 36.4 82 18 132/86 98 Room Air Physical Exam General Appearance: no apparent distress Eyes: normal inspection Respiratory/Chest: lungs clear, normal breath sounds, no respiratory distress Cardiovascular: regular rate, rhythm, no edema Abdomen: normal bowel sounds, non tender, soft Extremities: non-tender, no pedal edema Neurologic/Psychiatric: alert, oriented x 3 Laboratory Results 02/18/17 00:11 Red Blood Count 4.27, Mean Corpuscular Volume 93.0, Mean Corpuscular Hemoglobin 31.1, Mean Corpuscular Hemoglobin Concent 33.5, Mean Platelet Volume 10.7 02/18/17 00:11 Test 02/18/17 00:11 White Blood Count 13.81 K/uL (4.8-10.8) Red Blood Count 4.27 M/uL (4.7-6.1) Hemoglobin 13.3 g/dL (14.0-18.0) Hematocrit 39.7 % (42-52) Mean Corpuscular Volume 93.0 fL (80-100) Mean Corpuscular Hemoglobin 31.1 pg (25-34) Mean Corpuscular Hemoglobin Concent 33.5 g/dl (32-36) Platelet Count 106 K/uL (130-400) Mean Platelet Volume 10.7 fL (7.4-10.4) RDW Standard Deviation 55.6 fL (36.4-46.3) RDW Coefficient of Variation 16.6 % (11.5-14.5) Neutrophils % (Manual) 93.8 % Lymphocytes % (Manual) 1.8 % Monocytes % (Manual) 4.4 % Neutrophils # (Manual) 12.95 K/uL (1.4-6.5) Total Absolute Neutrophils 12.95 K/uL (1.4-6.5) Lymphocytes # (Manual) 0.25 K/uL (1.2-3.4) Total Absolute Lymphocytes 0.25 K/uL (1.2-3.4) Monocytes # (Manual) 0.61 K/uL (0.11-0.59) Platelet Estimate DECREASED Red Blood Cell Morphology Unremarkable Anion Gap 8.0 mmol/L (3-11) Est Creatinine Clear Calc Drug Dose 54.0 ml/min Estimated GFR () 71.5 Estimated GFR (Non- 61.7 BUN/Creatinine Ratio 27.4 (10-20) Calcium Level 8.3 mg/dl (8.5-10.1) Total Bilirubin 0.3 mg/dl (0.2-1) Aspartate Amino Transf (AST/SGOT) 52 U/L (15-37) Alanine Aminotransferase (ALT/SGPT) 124 U/L (12-78) Alkaline Phosphatase 58 U/L (45-117) Total Protein 5.5 gm/dl (6.4-8.2) Albumin 2.4 gm/dl (3.4-5.0) Globulin 3.1 gm/dl (2.5-4.0) Albumin/Globulin Ratio 0.8 (0.9-2) Chemistry Specimen Hemolysis Assessment and Plan 76M with a PMHx of non Hodgkin's Lymphoma on weekly Rituxan injections p/w gram neg bacilli on blood culture. He was called back to the ER for positive blood cultures. He has no complaints. He was given Rocephin x 2 02/17 and 02/16. On Zosyn while awaiting sensitivities. Sepsis sec to Gram negative bacilli Bacteremia from Blood Cultures taken on likely from prostatitis vs. UTI - Patient had fevers and chills on 02/16 which have resolved - WBC elevated 3.81 - likely from steroids to combat the effects of Rituxan - Abnormal UA on 02/17 - +LE and +WBC. - UCx from 02/17 - E. coli - 30,000 colonies - Repeat BCx x 2 02/18 pending - On Zosyn day [address] Durbin - Weekly Rituxan Injections - continue prednisone h/o enlarged prostate - Tamsulosin 0.4mg QHS HTN - Continue Norvasc 10mg Po dialy - Continue Tenormin 50 MG PO daily Dispo: Med Surg, Obs, no needs on discharge FULL CODE Resident Involvement: Resident Care Provided Care Provided: Adult Hospital Medicine Reviewed: Pt Seen/Exam by Me History denies any complains Constitutional: denies: fever Respiratory: negative: short of breath Cardiovascular: denies chest pain General Appearance: no apparent distress Respiratory: lungs clear, no respiratory distress Gastrointestinal: normal bowel sounds, non tender, soft Neurologic/Psychiatric: alert, oriented x 3 Skin Characteristics: warm/dry Assessment/Plan Resident Physician Supervision Note: I independently interviewed and examined the patient and verified the omalley history and physical, reviewed labs and image studies, discussed the case with the resident Dr. Baxter and agree with the findings and care plan.
[2017-02-18] MEDS ORDERED: TAMSULOSIN HCL 0.4 MG CAP PO SCH (21:00)
[2017-02-19 03:54] VITALS: BP 142/81; PULSE 68; TEMP 36.5; O2SAT 98
[2017-02-19] MEDS: PIPERACILL/TAZOBAC IV 3.375 GM in DEXTROSE 5% 100ML 100 ML IV SCH (05:59)
[2017-02-19 06:50] LABS: ALB/GLOB RATIO 0.7 (0.9-2); BUN/CREATININE RATIO 22.1 (10-20); CALCIUM 8.5 mg/dl (8.5-10.1); CREATININE 1.19 mg/dl (0.60-1.40); POTASSIUM 4.5 mmol/L (3.5-5.1)
[2017-02-19 07:10] VITALS: BP 144/83; PULSE 61; TEMP 36.7; O2SAT 97
[2017-02-19 07:18] LABS: HEMATOCRIT 42.1 % (42-52); MEAN CELL VOLUME 92.5 fL (80-100); MEAN CORPUSCULAR HEMOGLOBIN 31.2 pg (25-34); MEAN CORPUSCULAR HGB CONC 33.7 g/dl (32-36); RED BLOOD COUNT 4.55 M/uL (4.7-6.1); WHITE BLOOD COUNT 7.15 K/uL (4.8-10.8)
[2017-02-19 07:47] LABS: BASO % 0.1 %; BASO ABS # 0.01 K/uL (0-0.2); COMPLETE YES; IG% 1.3 %; LYMPH % 8.3 %; LYMPH ABS # 0.59 K/uL (1.2-3.4); MONO % 18.2 %; NEUT % 72.1 %
[2017-02-19] MEDS: HEPARIN SOD 5000 UNIT/0.5 ML CARP SQ SCH (07:51)
[2017-02-19] MEDS: AMLODIPINE BESYLATE 5 MG TAB PO SCH (07:51)
[2017-02-19 11:55] VITALS: BP 144/82; PULSE 64; TEMP 36.3; O2SAT 97
[2017-02-19] MEDS ORDERED: AMOX875T PO ×2 (12:51→12:53)
[2017-02-19] MEDS ORDERED: PRD10 PO (12:51)
[2017-02-19] MEDS ORDERED: FLM4 PO (12:53)
--- NOTE | 2017-02-19 12:58 | Hematology/Oncology Prog Note ---
Hematology/Onc Progress Note Date of Service Feb 19, 2017. Diagnoses Low-grade lymphoma with bone marrow involvement Thrombocytopenia Sepsis, likely from a urinary source Medications Medications Administered Medications (Trade) Dose Ordered Sig/Brandi Route Start Time Stop Time Status Last Admin Dose Admin Sodium Chloride 1,000 ml @ 999 mls/hr Q1H1M STAT IV 02/17/17 23:40 02/18/17 00:40 DC 02/18/17 00:13 999 MLS/HR Ceftriaxone Sodium (Rocephin Inj) 1 gm NOW STAT IV 02/18/17 00:05 02/18/17 00:59 DC 02/18/17 00:15 1 GM Piperacillin Sod/ Tazobactam Sod (Zosyn Iv) 4.5 gm NOW STAT IV 02/18/17 00:36 02/18/17 00:39 DC 02/18/17 00:47 4.5 GM Tamsulosin HCl (Flomax Cap) 0.4 mg NOW STAT PO 02/18/17 01:14 02/18/17 01:15 DC 02/18/17 01:15 0.4 MG Tamsulosin HCl (Flomax Cap) 0.4 mg HS PO 02/18/17 21:00 03/20/17 20:59 02/18/17 20:41 0.4 MG Piperacillin Sod/ Tazobactam Sod 3.375 gm/Dextrose 115 ml @ 28.75 mls/ hr Q8 IV 02/18/17 06:00 03/04/17 05:59 02/19/17 05:59 28.75 MLS/HR Amlodipine Besylate (Norvasc Tab) 10 mg DAILY PO 02/18/17 08:00 03/20/17 08:59 02/19/17 07:51 10 MG Atenolol (Tenormin Tab) 50 mg DAILY PO 02/18/17 08:00 03/20/17 08:59 02/19/17 07:50 50 MG Al Hydrox/Mg Hydrox/Simethicone (Maalox Max Susp) 15 ml Q4H PRN PO 02/18/17 01:15 03/20/17 01:14 02/19/17 01:21 15 ML Prednisone (PredniSONE TAB) 10 mg DAILY PO 02/19/17 08:00 03/21/17 07:59 02/19/17 07:53 10 MG Prednisone (PredniSONE TAB) 10 mg TODAY@1800 ONCE PO 02/18/17 18:00 02/18/17 18:01 DC 02/18/17 18:02 10 MG Subjective Mr. Tamayo looks well and is feeling much better than over the weekend. His WBCs are down and his energy is up. His platelet count wasn't reported today, due to technical issues, but appeared adequate by smear review. He is pending discharge today. Review of Systems: Constitutional: No fever, No chills Respiratory: No cough, No shortness of breath Cardiovascular: No chest pain Abdomen: No pain Male : No dysuria, No hematuria Heme: No abnormal bleeding/bruising, No night sweats Vital Signs Vital Signs Past 12 Hours Date Time Temp Pulse Resp B/P (MAP) Pulse Ox O2 Delivery O2 Flow Rate FiO2 02/19/17 11:55 36.3 64 18 144/82 (102) 97 Room Air 02/19/17 08:55 Room Air 02/19/17 07:10 36.7 61 15 144/83 (103) 97 Room Air 02/19/17 03:54 36.5 68 19 142/81 (101) 98 Room Air Physical Exam Constitutional: General Apperance: heathly-appearing Level of Distress: NAD Psychiatric: Mental Status: active & alert Orientation: oriented except where noted ENMT: pharynx normal Lungs: Respiratory Effort: no dyspnea Auscuitation: breath sounds normal Cardiovascular: Heart Auscultation: RRR Abdomen: Inspection & Palpation: soft, no tenderness, guarding & rebound Extremities: no edema Laboratory Last 24 Hours Test 02/19/17 05:51 White Blood Count 7.15 K/uL Red Blood Count 4.55 M/uL Hemoglobin 14.2 g/dL Hematocrit 42.1 % Mean Corpuscular Volume 92.5 fL Mean Corpuscular Hemoglobin 31.2 pg Mean Corpuscular Hemoglobin Concent 33.7 g/dl Platelet Count K/uL Neutrophils (%) (Auto) 72.1 % Lymphocytes (%) (Auto) 8.3 % Monocytes (%) (Auto) 18.2 % Eosinophils (%) (Auto) 0.0 % Basophils (%) (Auto) 0.1 % Neutrophils # (Auto) 5.16 K/uL Lymphocytes # (Auto) 0.59 K/uL Monocytes # (Auto) 1.30 K/uL Eosinophils # (Auto) 0.00 K/uL Basophils # (Auto) 0.01 K/uL RDW Standard Deviation 55.5 fL RDW Coefficient of Variation 16.5 % Immature Granulocyte % (Auto) 1.3 % Immature Granulocyte # (Auto) 0.09 K/uL Sodium Level 136 mmol/L Potassium Level 4.5 mmol/L Chloride Level 105 mmol/L Carbon Dioxide Level 26 mmol/L Anion Gap 5.0 mmol/L Blood Urea Nitrogen 26 mg/dl Creatinine 1.19 mg/dl Est Creatinine Clear Calc Drug Dose 51.5 ml/min Estimated GFR () 67.9 Estimated GFR (Non- 58.6 BUN/Creatinine Ratio 22.1 Random Glucose 117 mg/dl Calcium Level 8.5 mg/dl Total Bilirubin 0.3 mg/dl Aspartate Amino Transf (AST/SGOT) 24 U/L Alanine Aminotransferase (ALT/SGPT) 95 U/L Alkaline Phosphatase 46 U/L Total Protein 5.9 gm/dl Albumin 2.4 gm/dl Globulin 3.5 gm/dl Albumin/Globulin Ratio 0.7 Assessment & Plan Mr. Tamayo appears to be recovering from his urinary sepsis. He is on appropriate antibiotics and his signs of systemic inflammation are all improving. He will keep his appointment for a staging PET/CT later this week. Dr. Durbin postponed his dose of Rituxan planned for Sunday, but he will receive his regularly scheduled dose the following week. He has an appointment with Dr. Durbin in 2 weeks and should keep it. He should also continue his current dose of prednisone.
--- NOTE | 2017-02-19 12:58 | Discharge Instructions ---
Discharge Instructions Date of Service Feb 19, 2017. Admission Reason for Admission: Sepsis Discharge Discharge Diagnosis / Problem: Infection Discharge Goals Goal(s): Decrease discomfort, Improve disease control Activity Recommendations Activity Limitations: resume your previous activity . Instructions / Follow-Up Instructions / Follow-Up You were admitted to [facility] due to the presence of bacteria in your bloodstream. Below are the medical problems addressed during your admission: Infection - the bacteria growing in your blood is sensitive to most antibiotics, and therefore we will be sending you home on 11 days more of Augmentin, which makes a total of 14 days including the days you have already been treated - the likely source of this infection was a urinary tract infection or your prostate Non-Hodgkin's Lymphoma - you were seen by Dr. Durbin - He recommends you have your next dose of Rituxan (3rd out of 4 planned doses) next week as opposed to this Sunday - he also recommends you continue 10mg of prednisone daily and follow up with him in clinic - you are scheduled for a PET CT scan this Sunday to stage your disease Enlarged prostate - given your history of an enlarged prostate, we started you on a medication called tamsulosin which helps relax and open up your urinary tract You can continue your other home medications as prescribed and please follow up with your primary care provider and Dr. Durbin in the clinic. Current Hospital Diet Patient's current hospital diet: Regular Diet Discharge Diet Recommended Diet: Regular Diet Pending Studies Studies pending at discharge: no Medical Emergencies . Who to Call and When: Medical Emergencies: If at any time you feel your situation is an emergency, please call 911 immediately. . Non-Emergent Contact Non-Emergency issues call your: Primary Care Provider . . "Provider Documentation" section prepared by Charisse Gerber. . VTE Core Measure Inpt VTE Proph given/why not?: SCD's
[2017-02-19 13:07] VITALS: BP 144/82; PULSE 64; TEMP 36.3; O2SAT 97
--- NOTE | 2017-02-19 13:33 | Discharge Summary ---
Discharge Summary Date of Service Feb 19, 2017. Discharge Summary Admission Date: Feb 18, 2017 at 09:29 Discharge Date: Feb 19, 2017 Discharge Disposition: Home Principal Diagnosis: Gram Negative Bacteremia Problems/Secondary Diagnoses: (1) Non-Hodgkin lymphoma Status: Chronic 2) Hypertension 3) BPH Immunizations: Have You Had Influenza Vaccine: Unknown History of Tetanus Vaccine?: Unknown History of Pneumococcal: Unknown History of Hepatitis B Vaccine: Unknown Consultations: Hematology/Oncology Medication Reconciliation New Medications: Amoxicillin & Pot Clavulanate (Augmentin 875-125 mg) 1 Tab Tab 1 TAB PO BID for 11 Days, #22 TAB Prednisone (Prednisone) 10 Mg Tab 10 MG PO DAILY for 15 Days, #15 TAB Tamsulosin HCl (Tamsulosin HCl) 0.4 Mg Cap 0.4 MG PO HS for 30 Days, #30 CAP 3 Refills Continued Medications: Amlodipine (Norvasc) 10 Mg Tab 10 MG PO DAILY, TAB Atenolol (Tenormin) 50 Mg Tab 50 MG PO, TAB Discontinued Medications: Cephalexin (Keflex) 500 Mg Cap 1 CAP PO BID for 7 Days, #14 CAP Discharge Exam Mr. Tamayo reports he feels well today. He denies fever, chills, chest pain, or urinary symptoms and states he feels well enough to be discharged. Review of Systems: Constitutional: No fever, No chills Respiratory: No cough, No sputum, No wheezing, No shortness of breath Cardiovascular: No chest pain Abdomen: No pain, No nausea, No vomiting Physical Exam: General Appearance: WD/WN, no apparent distress Respiratory/Chest: chest non-tender, lungs clear, normal breath sounds, no respiratory distress, no accessory muscle use Cardiovascular: regular rate, rhythm, no edema, no gallop, no JVD, no murmur , normal peripheral pulses Abdomen / GI: normal bowel sounds, non tender, soft, no organomegaly, no pulsatile mass Hospital Course Mr. Tamayo is a 76 year old male with a past medical history of non-Hodgkin's Lymphoma on weekly Rituxan injections who presented with gram neg bacilli on blood culture. Sepsis sec to Gram negative bacilli Bacteremia from Blood Cultures taken on likely from prostatitis vs. UTI - Patient had fevers and chills on 02/16 which have resolved - He was given Rocephin x 2 02/17 and 02/16. He was then on Zosyn while awaiting sensitivities. - Abnormal UA on 02/17 - +LE and +WBC. - UCx from 02/17 - E. coli - 30,000 colonies - blood cultures grew pansensitive e.coli - he was discharged home on 11 days of augmentin for a total of 14 days of antibiotics - follow up with Dr. Mauro in clinic Non Hodgkin Lymphoma - Sees Dr. Durbin, follow up in clinic - Weekly Rituxan Injections - delayed to next week as opposed to this - continue prednisone 10mg daily - scheduled for a PET CT scan this Sunday for staging History of Enlarged Prostate - he was started on Tamsulosin 0.4mg QHS HTN - Continue Norvasc 10mg Po dialy - Continue Tenormin 50 MG PO daily Resident Physician Supervision Note: I interviewed and examined the patient. Discussed with Dr. Charisse Gerber and agree with findings and plan as documented in the note. Any exceptions or clarifications are listed here: None Patient was seen in the presence of his he has no complaints or problems X Vitals are reviewed and are stable Patient is alert oriented and without discomfort, skin is warm and dry Patiently discharged home to complete Augmentin therapy for gram-negative bacteremia associated with likely prostatitis, outpatient laboratory show a pansensitive Escherichia coli. Patient will follow up with Dr. Durbin for his non-Hodgkin's lymphoma Documented By: Bart Ramey Total Time Spent: Greater than 30 minutes This includes examination of the patient, discharge planning, medication reconciliation, and communication with other providers. Discharge Instructions Please refer to the electronic Patient Visit Report (Discharge Instructions) for additional information. Additional Copies To Radha Mauro M.D. Resident Tracking Resident Involvement: Resident Care Provided Care Provided: [facility]
== END 2017-02-19 13:53 | disposition home or self-care (01) | DRG 872 ==
LOC: C.EDB 23:30 → C.4E 02-18 01:04 → ENRESERV 02-18 01:09 → OBSVTOIN 02-18 09:29
PROVIDERS: ADMIT Family Medicine; ATTEND Family Medicine
DX: A41.51 Sepsis due to Escherichia coli [E. coli] (principal); C85.90 Non-Hodgkin lymphoma, unspecified, unspecified site; N39.0 Urinary tract infection, site not specified; I10 Essential (primary) hypertension; N40.0 Benign prostatic hyperplasia without lower urinary tract symptoms

== ENCOUNTER → 2017-02-28 | Outpatient (CLI) | payer OTHER, MEDICARE ==
[~2017-02-28] MED LIST changes: +ACYC-57 PO; -AMLO-114 PO; +AMLO10TA3 PO; +AMLO5TAB3 PO; +AMOX875T PO; -CEPH-571 PO; -DXY100 PO; +FINA5TAB PO; +FLM4 PO; +PRD10 PO
--- NOTE | 2017-02-28 14:14 | DIAGNOSTIC IMAGING REPORT ---
PET/CT SKULL-THIGH HISTORY: Lymphoma NHL TECHNIQUE: PET/CT was performed from the base of the skull through the pelvis following the intravenous administration of 14.8 mCi of F18-FDG. Non-contrast CT imaging was performed over the same range without breath-hold for attenuation correction of PET images and anatomic correlation, but not for primary interpretation as it is not of standard diagnostic quality. CT DOSE: COMPARISON: None. FINDINGS: HEAD AND NECK: There is no FDG-avid disease or significant lymphadenopathy in the imaged portions of the head and the neck. CHEST: There is no FDG-avid disease in the chest. There is no axillary, mediastinal, or hilar lymphadenopathy. There is no pleural or pericardial effusion. There is no air-space disease or suspicious lung nodule. ABDOMEN/PELVIS: Below the diaphragm, tracer is distributed physiologically in the gastrointestinal and genitourinary tracts. There is no significant lymphadenopathy and no FDG-avid disease. His note is made of right renal cyst measuring 5.3 cm. Several nonobstructing renal calcifications. Nonobstructive bowel pattern. MUSCULOSKELETAL: There is no FDG-avid or destructive bone lesion. Bilateral total hip replacements. IMPRESSION: There is no definite evidence of recurrent FDG-avid disease. The above report was generated using voice recognition software. It may contain grammatical, syntax or spelling errors. Electronically signed by: Tomy Pedroza M.D. 02/28/2017 2:13 PM Dictated Date/Time: 02/28/2017 2:05 PM
== END | disposition home or self-care (01) ==
LOC: C.PET 10:39
PROVIDERS: ATTEND Internal Medicine Hematology & Oncology
DX: C85.90 Non-Hodgkin lymphoma, unspecified, unspecified site (principal)

== ENCOUNTER → 2017-03-08 | Outpatient (CLI) | payer OTHER, MEDICARE ==
[~2017-03-08] MED LIST changes: -ACYC-57 PO; +AMLO-114 PO; -AMLO10TA3 PO; -AMLO5TAB3 PO; -FINA5TAB PO; -PRD10 PO
== END | disposition home or self-care (01) ==
LOC: C.PATHSPEC 17:37
PROVIDERS: ATTEND Urology
DX: R31.0 Gross hematuria (principal); R30.0 Dysuria; N39.0 Urinary tract infection, site not specified

== ENCOUNTER → 2017-03-14 | Outpatient (CLI) | payer OTHER, MEDICARE ==
--- NOTE | 2017-03-14 12:09 | DIAGNOSTIC IMAGING REPORT ---
CHEST 2 VIEWS ROUTINE HISTORY: NON HODGKIN'S LYMPHOMA COMPARISON: Chest 02/17/2017. FINDINGS: The heart is normal in size. No pleural effusions. No pneumothorax. No focal lung consolidations to suggest pneumonia. No evidence for pulmonary edema. Stable 5 mm nodular density within the right midlung zone. IMPRESSION: No significant change compared to the prior study. No acute process. Electronically signed by: Mele Moore M.D. 03/14/2017 12:07 PM Dictated Date/Time: 03/14/2017 12:05 PM
== END | disposition home or self-care (01) ==
LOC: C.RAD 11:45
PROVIDERS: ATTEND Internal Medicine Hematology & Oncology
DX: C85.90 Non-Hodgkin lymphoma, unspecified, unspecified site (principal)

== ENCOUNTER 2017-07-27 08:17 | Emergency (ER) | payer OTHER, MEDICARE ==
[~2017-07-27] VITALS: Ht 167.6 cm; Wt 79.1 kg
[2017-07-27 08:22] VITALS: TEMP 36.4; Ht 167.6 cm; Wt 79.1 kg
--- NOTE | 2017-07-27 10:14 | DIAGNOSTIC IMAGING REPORT ---
L PELVIS/UNILATERAL HIP 2-3VIEWS CLINICAL HISTORY: 77 years-old Male presenting with LT HIP AND BUTTOCK PAIN. TECHNIQUE: Single frontal view of the pelvis and frontal and frog-leg lateral views of the left hip were obtained. COMPARISON: PET/CT from 02/28/2017. FINDINGS: Bilateral total hip arthroplasty as on prior exam. No periprosthetic fracture. No malalignment. The right femoral head component may be slightly superiorly displaced relative to the center of the right acetabular component suggesting superior wear. The left femoral head component is centered in the left acetabular component. Bony pelvis intact. Atherosclerosis. IMPRESSION: 1. No acute osseous injury. 2. Suspected superior acetabular component wearing in the right hip. 3. Normal postsurgical appearance of the total left hip arthroplasty. Electronically signed by: Olaf Chappell M.D. 07/27/2017 10:13 AM Dictated Date/Time: 07/27/2017 10:10 AM
[2017-07-27] MEDS ORDERED: AMLO-110 PO (10:33)
[2017-07-27] MEDS ORDERED: ACYC-57 PO (10:33)
[2017-07-27] MEDS ORDERED: FINA5TAB PO (10:33)
--- NOTE | 2017-07-27 10:38 | DIAGNOSTIC IMAGING REPORT ---
LUMBAR SPINE 5 VIEWS CLINICAL HISTORY: Left hip and buttock pain. FINDINGS: Five views of the lumbar spine are correlated with PET/CT dated 02/28/2017. The skeletal structures are osteopenic. There is no radiographic evidence of acute fracture or malalignment involving the lumbar spine. Vertebral body height and alignment are maintained. The transverse and spinous processes appear intact. Anterior osteophytes are seen throughout. There is no evidence of spondylolysis. Mild facet arthropathy is seen in the lower lumbar region. Moderate disc space narrowing is seen at L5-S1. Only minimal disc space narrowing is seen at the remaining lumbar levels. A posterior disc-osteophyte complex is noted at L5-S1. The bony pelvis is intact as imaged. There are bilateral hip arthroplasties. There are nonobstructing bilateral renal calculi. No bowel obstruction is seen. There is advanced atherosclerotic calcification of the abdominal aorta. IMPRESSION: 1. No acute bony abnormality is seen involving the lumbar spine. 2. Osteopenia and spondylotic change as above. 3. Bilateral nonobstructing renal calculi. Dictated: 07/27/2017 10:08 AM Transcribed: 07/27/2017 10:37 AM [email or web address] Electronically signed by: Valentino Navarro M.D. 07/27/2017 10:43 AM Dictated Date/Time: 07/27/2017 10:08 AM
--- NOTE | 2017-07-27 11:13 | EMERGENCY ROOM VISIT NOTE ---
ED Visit Note First contact with patient: 08:25 CHIEF COMPLAINT: Left hip pain 2 days HISTORY OF PRESENT ILLNESS: Patient is a 77-year-old male who presents emergency department for evaluation of left hip pain. He reports that he had the left hip replaced about 10 years ago and has not had any problems since. 2 days ago he was bent over doing some gardening and potting plants. Yesterday, he states that he was seated for an extended period, roughly 4 hours, round receiving his Rituxan infusion. He states that yesterday afternoon and into the evening, he noted pain in the left posterior hip/buttock, occasionally radiating to the lateral aspect of the hip.. The pain was worse when he would stand upright or when he laid flat on his back and better when he was able to lay on his left side. He noticed pain as well when he got up to go to the bathroom overnight. He states that the pain was more significant overnight, and rated it an 8/10 at that time, but as he has been up and moving around more this morning the pain is lessening, and presently rates it a 4/10. He did apply warm compress last evening and took Tylenol. He did use a cane for ambulation this morning, but does not normally need to. He denies any recent trauma or falls. He denies any numbness, tingling or weakness radiating down the lower leg, no pain radiating into the thigh. REVIEW OF SYSTEMS: Review of systems as per HPI. All other systems reviewed were negative. 10 systems reviewed. PMH: Electronic medical records are reviewed and summarized as above/below. See Problem List. SOCIAL HISTORY: Patient lives at home with his . Retired. He does not smoke. PHYSICAL EXAM: Vital Signs: Reviewed Nurse's notes. CONSTITUTIONAL: Patient is pleasant 77-year-old male who is awake and alert and in no acute distress. He is observed ambulating from the bathroom to the gurney with a normal gait. CARDIOVASCULAR: Regular rate and rhythm. Peripheral pulses easily palpable. RESPIRATORY: Breath sounds clear to auscultation. ABDOMEN: Bowel sounds are present. Abdomen is soft, nontender and nondistended. INTEGUMENTARY: No lesions or rash, normal skin turgor. LYMPH: No lymphadenopathy. SPINE: Examination of the patient's back does not demonstrate any ecchymosis, abrasions or outward signs of trauma. No erythema, increased warmth or induration. Patient has no midline discomfort to palpation over the lumbar spinous processes. No step-off deformity. There is no pain over the sciatic notch. Full lumbar spine range of motion. He does have some recent reproducible discomfort in the left SI joint, and over the left posterior hemipelvis over the erector muscles. EXTREMITIES: Leg lengths are symmetrical. Well-healed left hip surgical incision. Negative logroll bilaterally. Normal strength including dorsi- flexion and plantar flexion of the great toes and ankles and flexion and extension of the knees and flexion of the hips. Negative bilateral straight leg raise testing. Lower extremity DTRs are equal and symmetrical bilaterally. Distal pulses are easily palpable. Sensation light touch is intact over the lower extremities bilaterally. EMERGENCY DEPARTMENT COURSE: The patient was seen and assessed as above. Left hip and pelvis and lumbar spine x-rays were obtained. There is some suspected wear of the right total hip arthroplasty, but no acute findings noted on the left total hip arthroplasty. Some minor arthritic changes are noted in the lumbar spine. No acute fracture, dislocation or blastic metastatic lesions. The patient was reassessed. He was made aware of the results of his x-ray findings. Patient history and presentation were reviewed with attending physician who also independently evaluated the patient. Patient has some reproducible left-sided back/buttock pain but I suspect is muscular or ligamentous in nature. His pain does not really seem consistent with radiculopathy. He does not have any true spine pain, nor any findings that are concerning for cauda equina syndrome. Patient reports that his pain is improving on his own. He is primarily concerned regarding the total hip arthroplasty which appears well on the radiographs. Supportive care measures were discussed. He cannot take NSAIDs due to his thrombocytopenia, therefore was encouraged to use Tylenol and heat to the area. He can follow-up with his primary care provider if his symptoms are not improving. Medication reconciliation: I attest that I have personally reviewed the patient' s current medication list. Blood pressure screening: Patient was found to have a slightly elevated blood pressure due to circumstances. The patient does have a history of hypertension and is monitored by his PCP. L PELVIS/UNILATERAL HIP 2-3VIEWS CLINICAL HISTORY: 77 years-old Male presenting with LT HIP AND BUTTOCK PAIN. TECHNIQUE: Single frontal view of the pelvis and frontal and frog-leg lateral views of the left hip were obtained. COMPARISON: PET/CT from 02/28/2017. FINDINGS: Bilateral total hip arthroplasty as on prior exam. No periprosthetic fracture. No malalignment. The right femoral head component may be slightly superiorly displaced relative to the center of the right acetabular component suggesting superior wear. The left femoral head component is centered in the left acetabular component. Bony pelvis intact. Atherosclerosis. IMPRESSION: 1. No acute osseous injury. 2. Suspected superior acetabular component wearing in the right hip. 3. Normal postsurgical appearance of the total left hip arthroplasty. LUMBAR SPINE 5 VIEWS CLINICAL HISTORY: Left hip and buttock pain. FINDINGS: Five views of the lumbar spine are correlated with PET/CT dated 02/28/2017. The skeletal structures are osteopenic. There is no radiographic evidence of acute fracture or malalignment involving the lumbar spine. Vertebral body height and alignment are maintained. The transverse and spinous processes appear intact. Anterior osteophytes are seen throughout. There is no evidence of spondylolysis. Mild facet arthropathy is seen in the lower lumbar region. Moderate disc space narrowing is seen at L5-S1. Only minimal disc space narrowing is seen at the remaining lumbar levels. A posterior disc-osteophyte complex is noted at L5-S1. The bony pelvis is intact as imaged. There are bilateral hip arthroplasties. There are nonobstructing bilateral renal calculi. No bowel obstruction is seen. There is advanced atherosclerotic calcification of the abdominal aorta. IMPRESSION: 1. No acute bony abnormality is seen involving the lumbar spine. 2. Osteopenia and spondylotic change as above. 3. Bilateral nonobstructing renal calculi. Problem List Medical Problems: (1) Acute ITP Status: Resolved (2) Bacteremia Status: Resolved (3) Fever Status: Resolved (4) HTN (hypertension) Status: Chronic (5) Kidney stones Status: Resolved (6) Non-Hodgkin lymphoma Status: Chronic (7) Prostatitis Status: Resolved (8) Rheumatoid arthritis Status: Chronic (9) Sepsis Status: Resolved (10) Thrombocytopenia Status: Chronic (11) UTI (urinary tract infection) Status: Resolved (12) UTI (urinary tract infection) Status: Resolved Surgical Problems: (1) History of appendectomy Status: Resolved (2) History of total left hip replacement Status: Resolved (3) History of total right hip replacement Status: Resolved Current/Historical Medications Scheduled Acyclovir (Zovirax), 1 DOSE PO UD Amlodipine (Norvasc), 5 MG PO DAILY Finasteride (Proscar), 5 MG PO DAILY Tamsulosin HCl (Tamsulosin HCl), 0.4 MG PO HS Miscellaneous Medications Atenolol (Tenormin), 50 MG PO Allergies Coded Allergies: Ciprofloxacin (Verified Allergy, Severe, MUSCLE PROBLEMS, 07/27/17) Morphine (Verified Allergy, Severe, HALLUCINATIONS, 07/27/17) Sulfamethoxazole w/Trimethoprim (Verified Allergy, Severe, HIVES, INTERFERES WITH IMMUNE SYSTEM, 07/27/17) Vital Signs Date Time Temp Pulse Resp B/P (MAP) Pulse Ox O2 Delivery O2 Flow Rate FiO2 07/27/17 11:29 58 16 154/83 96 07/27/17 10:49 57 16 123/67 95 Room Air 07/27/17 10:25 56 16 149/76 95 Room Air 07/27/17 08:22 36.4 68 20 141/83 96 Room Air Departure Information Impression Primary Impression: Left hip pain Referrals Radha Mauro M.D. (PCP) Patient Instructions My [facility] Additional Instructions Acetaminophen(Tylenol) may be used for fever or pain. Use 1000mg every six hours as needed. Avoid using more than 3000mg in a 24 hour period. This medication can be taken if you need to drive, work, or perform activities which may be dangerous when taking narcotic pain medication. Rest and avoid heavy lifting until your symptoms resolve and then gradually return to full activity. A good rule of thumb is if it hurts your back to perform a certain activity, then it should be avoided until you are healthy again. A heating pad, warm compresses, or a hot shower may help with tight muscles and can be done several times a day as needed. Continue current medications. Return to the ER immediately for any numbness, tingling, severe pain, loss of control of your bowels or bladder, inability to walk, or as needed. Follow up with your primary care physician within 3-5 days for a recheck of your current condition.
[2017-07-27 11:29] VITALS: BP 154/83; PULSE 58; O2SAT 96
--- NOTE | 2017-07-27 11:37 | EMERGENCY ROOM VISIT NOTE ---
ED Visit Note First contact with patient: 11:25 The patient was seen and examined with bry. I agree with the history, physical and findings. Please see the note for disposition and details.
== END 2017-07-27 11:30 | disposition home or self-care (01) ==
LOC: C.EDB 08:18
DX: M25.552 Pain in left hip (principal); I10 Essential (primary) hypertension; M19.90 Unspecified osteoarthritis, unspecified site; Z88.8 Allergy status to other drugs, medicaments and biological substances; Z88.5 Allergy status to narcotic agent; Z88.2 Allergy status to sulfonamides

== ENCOUNTER 2019-02-23 09:38 | Inpatient (IN) ==
[2019-02-23 10:36] LABS: Albumin Level 3.4 gm/dl (3.4-5.0); Calcium 9.2 mg/dl (8.5-10.1); Creatinine Clr Calc Pharmacy 46.4 ml/min; Est GFR (African American) 61.9; Est GFR (Non-African American) 53.4; Potassium 3.7 mmol/L (3.5-5.1)
[2019-02-23] MEDS ORDERED: SODIUM CHLORIDE 0.9% 1000ML 1,000 ML IV ONE (10:40)
[2019-02-23 10:44] LABS: Hematocrit (blood only) 44.2 % (42-52); Hemoglobin 15.3 g/dL (14.0-18.0); Mean Corpuscular Hemoglobin 31.9 pg (25-34); Mean Corpuscular Hgb Conc 34.6 g/dL (32-36); Mean Corpuscular Volume 92.3 fL (80-100); Platelet Count 212 K/uL (130-400); RDW Coefficient of Variation 13.3 % (11.5-14.5); RDW Standard Deviation 44.9 fL (36.4-46.3); Red Blood Count 4.79 M/uL (4.7-6.1); White Blood Count 9.84 K/uL (4.8-10.8)
[2019-02-23 10:45] LABS: Basophils # (auto) 0.05 K/uL (0-0.2); Basophils % (auto) 0.5 %; Eosinophils # (auto) 0.05 K/uL (0-0.5); Eosinophils % (auto) 0.5 %; Immature Granulocytes # (auto) 0.04 K/uL (0.00-0.02); Immature Granulocytes % (auto) 0.4 %; Lymphocytes # (auto) 1.85 K/uL (1.2-3.4); Lymphocytes % (auto) 18.8 %; Monocytes # (auto) 1.19 K/uL (0.11-0.59); Monocytes % (auto) 12.1 %; Neutrophils # (auto) 6.66 K/uL (1.4-6.5); Neutrophils % (auto) 67.7 %
--- NOTE | 2019-02-23 10:50 | XRay Report ---
XR chest 1V portable CLINICAL HISTORY: Chest pain. COMPARISON STUDY: Chest CT September 23, 2018. FINDINGS: Lung volumes are normal. Lungs are clear. There is no pneumothorax or pleural effusion. Car diomediastinal silhouette is stable. Mediastinal contours are normal. There is no evidence for pulmon brittnee edema. IMPRESSION: No acute cardiopulmonary findings. ACT 112: Negative or not required by law. Electronically signed by: Lucio Wooten M.D. 02/23/2019 10:49 AM
[2019-02-23 10:57] LABS: Albumin Globulin Ratio 0.6 (0.9-2); Creatine Kinase MB 5.5 ng/ml (0.5-3.6); Globulin 5.3 gm/dl (2.5-4.0); Total Protein 8.7 gm/dl (6.4-8.2); Troponin I 1.58 ng/ml (0-0.045)
[2019-02-23] MEDS ORDERED: NITROGLYCERIN SL 0.4 MG/TAB TAB SL STA (10:59)
[2019-02-23] MEDS ORDERED: NITROGLYCERIN 2% OINTMENT 30GM TUBE EXT STA (10:59)
[2019-02-23] MEDS ORDERED: Heparin IV Standard *NO* Bolus IV ONE (11:07)
[2019-02-23] MEDS ORDERED: HEPARIN SODIUM/DEXTROSE 25,000 UNITS/500 ML BAG IV SCH (11:15)
[2019-02-23 11:19] LABS: Appearance Urine Cloudy (Clear); Bacteria Urine Automated Negative (Negative); Bilirubin Urine Negative (Negative); Blood Urine Trace (Negative); Cast Urine Automated 0 /lpf (0-5); Color Urine Yellow; Epithelial Cell Urine Auto 0-5 /lpf (0-5); Glucose Urine UA Negative (Negative); Ketones Urine Negative (Negative); Leukocyte Esterase Urine Negative (Negative); Nitrite Urine Negative (Negative); Protein Urine Negative (Negative); RBC Urine Automated 0-4 /hpf (0-4); Specific Gravity Urine 1.009 (1.000-1.030); Urobilinogen Urine Negative (Negative); pH Urine 6.5 (4.5-7.5)
[2019-02-23 11:30] LABS: INR 1.2 (0.9-1.1); Prothrombin Time 12.3 Seconds (9.0-12.0)
--- NOTE | 2019-02-23 12:25 | History & Physical Report ---
Date of Service February 23, 2019 Assessment & Plan (1) Chest pain: Admit to PCU on telemetry. Vital signs every 4 hours. Nitroglycerin paste /sublingual nitroglycerin for chest pain Started heparin drip with bolus in the ER, continue heparin drip for possible acute coronary syndrome versus demand ischemia. Troponin x3 with EKG and trend down. Consult cardiology TTE pending Would consider stress test s/p normalized troponin. DVT prophylaxis patient is on heparin drip Full code Present on Admission?: Yes (2) Elevated troponin: As discussed above Present on Admission?: Yes (3) History of ITP: Patient condition discussed with Dr. Jacob hematology oncology, and he recommended to follow-up his platelets closely because of heparin drip today may start decreasing again. Present on Admission?: Yes (4) Hypertension: Appears to be stable at this time. On the entrance in the emergency room it was elevated 173/93, but then normalized. Continue monitoring blood pressure every 4 hours, continue amlodipine 5 mg p.o. every morning, continue atenolol 50 mg p.o. every morning. Present on Admission?: Yes (5) History of kidney stones: Patient has trace blood in urine. He has past medical history of kidney stones and lithotripsy. Would consider CT of the abdomen and pelvis to rule out possible kidney stone. Present on Admission?: Yes (6) Lymphoma: Patient is not on any other medication for lymphoma at this point except for thrombocytopenia IVIG. Continue monitoring. Follow-up with Dr. Laine Young. Present on Admission?: Yes (7) Rheumatoid arthritis: Appears to be stable at this time. Patient is not on medicine for rheumatoid arthritis at this point. Present on Admission?: Yes (8) Thrombocytopenia: Continue following closely platelets. Today they are 212 s/p IVIG Sunday and Present on Admission?: Yes (9) BPH (benign prostatic hyperplasia): Stable. Continue tamsulosin 0.4 mg p.o. every afternoon, and finasteride 5 mg p.o. every afternoon. Present on Admission?: Yes History of Present Illness ITP, Chief Complaint: Chest pain Primary Care Provider: Vani Mauro Patient is a 78 years old male with past medical history of low-grade lymphoma with bone marrow involvement, thrombocytopenia,ITP, prostatitis who came to the emergency room this morning with a complaint of chest pain. Patient was started on IVIG for thrombocytopenia Sunday and this week. Patient states that chest pain was on and off for 24 hours and this morning he woke up with chest pain. Patient said that longest occurrence of chest pain was for 1 hour. Patient reports feeling tightness in his chest and the discomfort. Patient said that nitroglycerin below the tongue helped and relieved the pain. Patient said prior to having IVIG infusion patient platelets were only 3000. Today they are 212 s/p IVIG. Patient reports no other issues. Patient denies fever, chills, abdominal pain, frequency, urgency. EKG shows sinus bradycardia 54 bpm, Q waves in II, III and aVF foot-inferior infarct, age undetermined with T wave inversion evident in inferior leads. This is different in comparison to patient previous EKG from April 12, 2018 or at least appears worse. Labs are reviewed: WBC is 9.84, hemoglobin 15.3, hematocrit 44.2, platelets 212, PT 12.3, INR 1.2, sodium 137, potassium 3.7, chloride 107 BUN 28, GFR 53.4, AST 44, ALT 69, troponin I 0.58, total protein is 8.7, albumin 0.6 lipase 325, BNP pending, TSH pending, magnesium pending. Urine is cloudy with trace blood negative nitrates and negative leukocyte esterase, negative bacteria. Lung volumes are normal. Lungs are clear. There is no pneumothorax or pleural effusion. Cardiomediastinal silhouette is stable. Mediastinal contours are normal. There is no evidence of pulmonary edema. No acute cardiopulmonary findings. Decision was made to admit patient to PCU on telemetry for elevated troponin, EKG changes, possibly due to demand ischemia, and chest pain. Allergies Allergy/AdvReac Type Severity Reaction Status Date / Time Bactrim Allergy Severe HIVES, Verified 07/27/17 10:29 INTERFERES WITH IMMUNE SYSTEM Cipro Allergy Severe MUSCLE Verified 07/27/17 10:29 PROBLEMS ciprofloxacin Allergy Severe MUSCLE Verified 02/23/19 10:46 PROBLEMS morphine Allergy Severe HALLUCINATI Verified 02/23/19 10:46 ONS sulfamethoxazole Allergy Severe HIVES, Verified 02/23/19 10:46 INTERFERES WITH IMMUNE SYSTEM trimethoprim Allergy Severe HIVES, Verified 02/23/19 10:46 INTERFERES WITH IMMUNE SYSTEM Home Medications Home Medications Medication Instructions Recorded Confirmed Type amlodipine 5 mg PO QAM 04/15/18 02/23/19 History atenolol 50 mg PO QAM 04/15/18 02/23/19 History finasteride 5 mg PO QPM 04/15/18 02/23/19 History tamsulosin [Flomax] 0.4 mg PO QPM 04/15/18 02/23/19 History acetaminophen [Tylenol Extra 1,000 mg PO Q6H PRN 02/23/19 02/23/19 History Strength] immun glob [id number] 0-50 0 g IV USEASDIRECTD 02/23/19 02/23/19 History Past Med/Surg History Medical History BPH (benign prostatic hyperplasia) GERD (gastroesophageal reflux disease) MILD History of ITP 2017 Hypertension Kidney stones 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 Pt denied any abnormal bleeding or bruising at heme appt 04/05/18 Surgical History History of adenoidectomy History of appendectomy History of colonoscopy History of cystoscopy STONE REMOVAL History of lithotripsy History of tonsillectomy History of tooth extraction History of total hip arthroplasty RT/LEFT Family History Other Hypertension Kidney disease Social History Preferred Language: Estonian Communication Ability: Effective Inseam Leveler Required: No Beliefs That Will Affect Care: None Current Living Situation: Spouse Other Information That Helps Us Care for You: No Feels Safe at Home: Yes Safety Concerns: Feels Safe At This Time Smoking Status: Never smoker Second Hand Exposure: Yes ( A CHILD) ; Hx Alcohol Use: Yes Alcohol type: beer, wine and hard liquor Hx Substance Use: No Review of Systems Review of Systems: All systems reviewed & are unremarkable except as noted in HPI & below Physical Exam Constitutional: WD/WN, vitals as above well developed and + obese Eyes: PERRL, conjunctivae normal, anicteric sclerae ENMT: external ear and nose normal, oropharynx normal Neck: trachea midline, no thyromegaly Respiratory: normal respiratory effort, lungs clear to auscultation Cardiovascular: Rate/Rhythm: + bradycardic Vessels: dorsalis pedis pulses present Gastrointestinal (Abdomen): normal bowel sounds, soft, nontender, no hepatosplenomegaly Musculoskeletal: no cyanosis or clubbing, extremities motor strength 5/5 Skin: no rashes, warm and dry Neurologic: patellar DTR's 2+ bilat, sensation intact Genitourinary: no testicular masses, no penis abnormality Lymphatic: no cervical or axillary lymphadenopathy Results & Data Vital Signs (Past 12 Hours) Vital Signs Temp Pulse Pulse Resp BP BP Pulse Ox 02/23/19 11:38 52 L 18 129/74 94 02/23/19 10:15 99 02/23/19 09:38 36.9 C 59 L 18 173/93 H 99 Code Status & VTE Plan Code Status Full code VTE Prophylaxis Plan VTE Prophylaxis will be ordered: Yes PG Care Time/CCT Total # of Minutes Spent Total Time Spent with Patient: Total time spent is greater than 50% in coordination of care (as documented) at patient's floor/unit and/or counseling patient:
[2019-02-23] MEDS ORDERED: NITROGLYCERIN SL 0.4 MG/TAB TAB SL PRN (13:20)
[2019-02-23] MEDS ORDERED: POLYETHYLENE (MIRALAX) 17 GM PACK PO PRN (13:20)
[2019-02-23] MEDS ORDERED: MAGNESIUM HYDROXIDE SUSP 30 ML UDC PO PRN (13:20)
[2019-02-23] MEDS ORDERED: ALUMINUM/MAGNESIUM SUSP 30 ML UDC PO PRN (13:20)
[2019-02-23] MEDS ORDERED: ONDANSETRON INJ 2 MG/ML 2 ML VIAL IV PRN (13:20)
[2019-02-23] MEDS ORDERED: ACETAMINOPHEN 325 MG TAB PO PRN (13:20)
[2019-02-23] MEDS ORDERED: MoRPHine SULFATE 2 MG/ML CARP IV PRN (13:20)
--- NOTE | 2019-02-23 13:38 | Emergency Department Note ---
Entered by Master Jordan acting as a scribe for Erick Wilcox MD History of Present Illness General Chief complaint: Chest Pain Stated complaint: CHEST PAIN, B/L ARM PAIN Time Seen by Provider: 02/23/19 09:59 Source: patient History of Present Illness Onset (ago): day(s) 2 Location: chest Radiation: extremity (bilateral upper extremities) Pain Consistency: + constant Maximum Pain Intensity: 3 Quality: + other (tightness) Relieved By: + none Exacerbated By: + none Associated symptoms: + denies other symptoms (abdominal pain); no diaphoresis, no nausea/vomiting and no shortness of breath The patient is a 78 year old M who presents to the Emergency Room with complaints of constant chest pain that started 2 days ago 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 He notes that he had IVIG treatment on Sunday. He states that it was performed too fast and he started to experience rigors. He notes that he also received IVIG treatment on , which he adds was normal. He notes that he started to experience chest pain, 2 days ago, on Sunday. He describes his chest pain as a tightness. He adds that the pain radiates to both of his upper extremities. He denies that his chest tightness is made better or worse. He adds that he has never had a cardiac stress test performed before. He states that he called his oncologist and was told to come into the ED due to his pain. He denies that he is currently experiencing nausea, vomiting, abdominal pain, sweating, and shortness of breath. He notes that he had rheumatic fever when he was 13 years old. He denies any history of valve issues and smoking. Home Medications Home Medications Medication Instructions Recorded Confirmed Type amlodipine 5 mg PO QAM 04/15/18 02/23/19 History atenolol 50 mg PO QAM 04/15/18 02/23/19 History finasteride 5 mg PO QPM 04/15/18 02/23/19 History tamsulosin [Flomax] 0.4 mg PO QPM 04/15/18 02/23/19 History acetaminophen [Tylenol Extra 1,000 mg PO Q6H PRN 02/23/19 02/23/19 History Strength] immun glob S-[id number] 0-50 0 g IV USEASDIRECTD 02/23/19 02/23/19 History Allergies Allergy/AdvReac Type Severity Reaction Status Date / Time Bactrim Allergy Severe HIVES, Verified 07/27/17 10:29 INTERFERES WITH IMMUNE SYSTEM Cipro Allergy Severe MUSCLE Verified 07/27/17 10:29 PROBLEMS ciprofloxacin Allergy Severe MUSCLE Verified 02/23/19 10:46 PROBLEMS morphine Allergy Severe HALLUCINATI Verified 02/23/19 10:46 ONS sulfamethoxazole Allergy Severe HIVES, Verified 02/23/19 10:46 INTERFERES WITH IMMUNE SYSTEM trimethoprim Allergy Severe HIVES, Verified 02/23/19 10:46 INTERFERES WITH IMMUNE SYSTEM Past Med/Surg History Medical History BPH (benign prostatic hyperplasia) GERD (gastroesophageal reflux disease) MILD History of ITP 2017 Hypertension Kidney stones 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 Pt denied any abnormal bleeding or bruising at heme appt 04/05/18 Surgical History History of adenoidectomy History of appendectomy History of colonoscopy History of cystoscopy STONE REMOVAL History of lithotripsy History of tonsillectomy History of tooth extraction History of total hip arthroplasty RT/LEFT Family History Other Hypertension Kidney disease Social History Preferred Language: Greenlandic Communication Ability: Effective Cotton Ball Bagger Required: No Beliefs That Will Affect Care: None Current Living Situation: Spouse Feels Safe at Home: Yes Smoking Status: Never smoker Second Hand Exposure: Yes ( A CHILD) ; Hx Alcohol Use: Yes Alcohol type: beer, wine and hard liquor Hx Substance Use: No Review of Systems See HPI for pertinent positives & negatives. and A total of 10 systems reviewed and were otherwise negative Physical Exam Vital Signs Vital Signs - 24 hr 02/23/19 09:38 02/23/19 10:15 02/23/19 11:38 Temperature 36.9 C Temperature Source Oral Pulse Rate 59 L Pulse Rate [Apical] 52 L Respiratory Rate 18 18 Blood Pressure 173/93 H Blood Pressure [Left Arm] 129/74 Blood Pressure Mean 119 Blood Pressure Mean [Left Arm] 92 Pulse Oximetry 99 99 94 Oxygen Delivery Method Room Air Room Air Room Air Sepsis Recent Fever Within 48 Hours No Sepsis New/Unexplained Change in Mental Status No Sepsis Action Taken by Nursing No Action Required GENERAL: Awake, alert, well-appearing, in no acute distress HENT: Normocephalic, atraumatic. Oropharynx unremarkable. EYES: Normal conjunctiva. Sclera non-icteric. NECK: Supple. No nuchal rigidity. FROM. No JVD. RESPIRATORY: Clear to auscultation. CARDIAC: Regular rate, normal rhythm. Extremities warm and well perfused. Pulses equal. ABDOMEN: Soft, non-distended. No tenderness to palpation. No rebound or guarding. No masses. RECTAL: Deferred. MUSCULOSKELETAL: Chest examination reveals no tenderness. The back is symmetrical on inspection without obvious abnormality. There is no CVA tenderness to palpation. No joint edema. LOWER EXTREMITIES: Calves are equal size bilaterally and non-tender. No edema. No discoloration. NEURO: Normal sensorium. No sensory or motor deficits noted. SKIN: No rash or jaundice noted. Course Course 1034: The patient was evaluated in room A12B. A complete history and physical exam was performed. 1102: I reviewed the patient's case with Dr. Rudd, [facility] Hospitalist. She will evaluate the patient for further management. 1105: I reviewed the patient's case with Dr. Sorenson, [facility] [place]. He states to give the patient heparin. Administered Medications Heparin Sodium/Dextrose (Heparin Sodium/Dextrose) 25,000 units in 500 mls @ 25 mls/hr IV .Q20H [facility]; Protocol Stop: 03/25/19 11:14 Last Titration: 02/23/19 12:59 Dose: 1,250 units/hr, 25 mls/hr Documented by: [id number] Cosigned by: [id number] Admin: 02/23/19 11:52 Dose: 1,250 units/hr, 25 mls/hr Documented by: [id number] Cosigned by: [id number] Discontinued Medications Sodium Chloride (Nss 1000ml) 1,000 mls @ 999 mls/hr IV .Q1H1M ONE Stop: 02/23/19 11:40 Last Infusion: 02/23/19 11:50 Dose: 0 mls/hr Documented by: [id number] Admin: 02/23/19 10:49 Dose: 999 mls/hr Documented by: [id number] Nitroglycerin (Nitrostat) 0.4 mg SL NOW STA Stop: 02/23/19 11:00 Last Admin: 02/23/19 11:05 Dose: 0.4 mg Documented by: [id number] Nitroglycerin (Nitro-Bid 2%) 1 inch EXT NOW STA Stop: 02/23/19 11:00 Last Admin: 02/23/19 11:04 Dose: 1 inch Documented by: [id number] Critical Care Time I have personally spent greater than 30 minutes of critical care time in the direct management of this patient. This includes bedside care, interpretation of diagnostic studies, and testing, discussion with consultants, patient, and family members, and other required patient management activities. This 30 minutes is in excess of all separately billable procedures. Medical Decision Making Differential Diagnosis Differential diagnosis: Etiologies such as cardiac ischemia, aortic dissection, pulmonary embolism, pneumonia, pneumothorax, musculoskeletal, infections, pericarditis, myocarditis, esophageal rupture, gastrointestinal, as well as others were entertained. Medical Records Attestation: I reviewed the patient's medical records. Home Medications Current Medication List: was personally reviewed by me Laboratory Data Attestation: I reviewed the patient's lab results. Result diagrams: 02/23/19 10:00 02/23/19 10:00 Lab Results 02/23/19 02/23/19 02/23/19 Range/Units 10:00 10:00 10:00 WBC 9.84 (4.8-10.8) K/uL RBC 4.79 (4.7-6.1) M/uL Hgb 15.3 (14.0-18.0) g/dL Hct 44.2 (42-52) % MCV 92.3 (80-100) fL MCH 31.9 (25-34) pg MCHC 34.6 (32-36) g/dL RDW Std Deviation 44.9 (36.4-46.3) fL RDW Coeff of Katarian 13.3 (11.5-14.5) % Plt Count 212 (130-400) K/uL MPV 10.0 (7.4-10.4) fL Immature Gran % (Auto) 0.4 % Neut % (Auto) 67.7 % Lymph % (Auto) 18.8 % Elbert % (Auto) 12.1 % Eos % (Auto) 0.5 % Baso % (Auto) 0.5 % Immature Gran # (Auto) 0.04 H (0.00-0.02) K/uL Neut # (Auto) 6.66 H (1.4-6.5) K/uL Lymph # (Auto) 1.85 (1.2-3.4) K/uL Elbert # (Auto) 1.19 H (0.11-0.59) K/uL Eos # (Auto) 0.05 (0-0.5) K/uL Baso # (Auto) 0.05 (0-0.2) K/uL PT 12.3 H (9.0-12.0) Seconds INR 1.2 H (0.9-1.1) Sodium 137 (136-145) mmol/L Potassium 3.7 (3.5-5.1) mmol/L Chloride 107 (98-107) mmol/L Carbon Dioxide 25 (21-32) mmol/L Anion Gap 6.0 (3-11) BUN 28 H (7-18) mg/dl Creatinine 1.27 (0.6-1.4) mg/dl Est Cr Clr Drug Dosing 46.4 ml/min Est GFR ( Amer) 61.9 Est GFR (Non-Af Amer) 53.4 BUN/Creatinine Ratio 22.0 H (10-20) Glucose 113 H (70-99) mg/dl Calcium 9.2 (8.5-10.1) mg/dl Total Bilirubin 1.0 (0.2-1) mg/dl AST 44 H (15-37) U/L ALT 69 (12-78) U/L Alkaline Phosphatase 45 (45-117) U/L Total Creatine Kinase 104 (39-308) U/L CK-MB (CK-2) 5.5 H (0.5-3.6) ng/ml CK/CKMB % Calc 5.3 H (0-3.0) Troponin I 1.580 H* (0-0.045) ng/ml Total Protein 8.7 H (6.4-8.2) gm/dl Albumin 3.4 (3.4-5.0) gm/dl Globulin 5.3 H (2.5-4.0) gm/dl Albumin/Globulin Ratio 0.6 L (0.9-2) Lipase 325 (73-393) U/L Urine Color Urine Appearance (Clear) Urine pH (4.5-7.5) Ur Specific [place] (1.000-1.030) Urine Protein (Negative) Urine Glucose (UA) (Negative) Urine Ketones (Negative) Urine Blood (Negative) Urine Nitrite (Negative) Urine Bilirubin (Negative) Urine Urobilinogen (Negative) Ur Leukocyte Esterase (Negative) Urine WBC (Auto) (0-5) /hpf Urine RBC (Auto) (0-4) /hpf U Hyaline Cast (Auto) (0-5) /lpf U Epithel Cells (Auto) (0-5) /lpf Urine Bacteria (Auto) (Negative) 02/23/19 Range/Units 11:00 WBC (4.8-10.8) K/uL RBC (4.7-6.1) M/uL Hgb (14.0-18.0) g/dL Hct (42-52) % MCV (80-100) fL MCH (25-34) pg MCHC (32-36) g/dL RDW Std Deviation (36.4-46.3) fL RDW Coeff of Katarina (11.5-14.5) % Plt Count (130-400) K/uL MPV (7.4-10.4) fL Immature Gran % (Auto) % Neut % (Auto) % Lymph % (Auto) % Elbert % (Auto) % Eos % (Auto) % Baso % (Auto) % Immature Gran # (Auto) (0.00-0.02) K/uL Neut # (Auto) (1.4-6.5) K/uL Lymph # (Auto) (1.2-3.4) K/uL Elbert # (Auto) (0.11-0.59) K/uL Eos # (Auto) (0-0.5) K/uL Baso # (Auto) (0-0.2) K/uL PT (9.0-12.0) Seconds INR (0.9-1.1) Sodium (136-145) mmol/L Potassium (3.5-5.1) mmol/L Chloride (98-107) mmol/L Carbon Dioxide (21-32) mmol/L Anion Gap (3-11) BUN (7-18) mg/dl Creatinine (0.6-1.4) mg/dl Est Cr Clr Drug Dosing ml/min Est GFR ( Amer) Est GFR (Non-Af Amer) BUN/Creatinine Ratio (10-20) Glucose (70-99) mg/dl Calcium (8.5-10.1) mg/dl Total Bilirubin (0.2-1) mg/dl AST (15-37) U/L ALT (12-78) U/L Alkaline Phosphatase (45-117) U/L Total Creatine Kinase (39-308) U/L CK-MB (CK-2) (0.5-3.6) ng/ml CK/CKMB % Calc (0-3.0) Troponin I (0-0.045) ng/ml Total Protein (6.4-8.2) gm/dl Albumin (3.4-5.0) gm/dl Globulin (2.5-4.0) gm/dl Albumin/Globulin Ratio (0.9-2) Lipase (73-393) U/L Urine Color Yellow Urine Appearance Cloudy A (Clear) Urine pH 6.5 (4.5-7.5) Ur Specific [place] 1.009 (1.000-1.030) Urine Protein Negative (Negative) Urine Glucose (UA) Negative (Negative) Urine Ketones Negative (Negative) Urine Blood Trace H (Negative) Urine Nitrite Negative (Negative) Urine Bilirubin Negative (Negative) Urine Urobilinogen Negative (Negative) Ur Leukocyte Esterase Negative (Negative) Urine WBC (Auto) 1-5 (0-5) /hpf Urine RBC (Auto) 0-4 (0-4) /hpf U Hyaline Cast (Auto) 0 (0-5) /lpf U Epithel Cells (Auto) 0-5 (0-5) /lpf Urine Bacteria (Auto) Negative (Negative) Imaging Data Radiologist's Impression: Radiology results as stated below per my review and the radiologist's interpretation: XR chest 1V portable CLINICAL HISTORY: Chest pain. COMPARISON STUDY: Chest CT September 23, 2018. FINDINGS: Lung volumes are normal. Lungs are clear. There is no pneumothorax or pleural effusion. Cardiomediastinal silhouette is stable. Mediastinal contours are normal. There is no evidence for pulmonary edema. IMPRESSION: No acute cardiopulmonary findings. ACT 112: Negative or not required by law. Electronically signed by: Lucio Wooten M.D. 02/23/2019 10:49 AM ECG Data Attestation: I personally reviewed and interpreted this ECG as follows: Indication: + chest pain Rate (beats per minute): 54 Rhythm: + sinus bradycardia ECG Findings: + LVH and + Other (old inferior infarct) Comparison ECG Date: from (04/12/18) Change: the following changes noted (the old inferior infarct is new) Additional Comments: Repeat EKG at 1054: sinus bradycardia with a rate of 53, LVH, old inferior infarct Blood Pressure Blood Pressure Findings: Normal blood pressure Blood Pressure Disposition: did not require urgent referral MDM Narrative This is a 78-year-old male who presents emergency department complaining of chest pressure that has been ongoing for the past 2 days. The patient has a history of ITP for which he receives IVIG infusions. His platelets are 231. The patient's pain was relieved by nitro and his blood pressure improved greatly. The patient's EKG is markedly changed from last April and his tro ponin is also grossly elevated. Based on this I feel the patient should be admitted. I did discuss his case with cardiology who asked that the patient be placed on a heparin drip. I then discussed the case with the hospitalist who agreed admit the patient. Patient and family were in agreement with the treatment plan. Impression & Plan Chest pain, History of ITP, Elevated troponin Discharge Plan Visit Data *Final* Discharge Date/Time: 02/23/19 12:53 Chief Complaint: Chest Pain Stated Complaint: CHEST PAIN, B/L ARM PAIN ED Provider: Erick Wilcox Discharge Problem: Chest pain, History of ITP, Elevated troponin Patient Disposition: Admitted As Inpatient Discharge Instructions Interventions: ED Discharge Assessment Last Done: 02/23/19 12:53 Discharge Problem: Chest pain Qualifiers: Chest pain type: unspecified Qualified Code(s): R07.9 - Chest pain, unspecified The scribe's documentation has been prepared under my direction and personally reviewed by me in its entirety. I confirm that the note above accurately reflects all work, treatment, procedures, and medical decision making performed by me.
[2019-02-23 14:19] LABS: Magnesium 2.1 mg/dl (1.8-2.4); Thyroid Stimulating Hormone 1.53 uIu/ml (0.300-4.500)
[2019-02-23] MEDS ORDERED: ASPIRIN CHEW 324 MG PO STA (15:00)
[2019-02-23] MEDS ORDERED: PERFLUTREN LIPID MICROSPHERE (DEFINITY) IV ONE (15:45)
[2019-02-23] MEDS ORDERED: HEPARIN (PORCINE) 1000 UNIT/ML 10 ML (CATH LAB USE ONLY) ONE (15:58)
[2019-02-23] MEDS ORDERED: fentaNYL citrate 100 MCG/2 ML VIAL ONE (15:58)
[2019-02-23] MEDS ORDERED: NiCARDipine HCL INJ 2.5 MG/ML 10 ML AMP ONE (15:58)
[2019-02-23] MEDS ORDERED: MIDAZOLAM HCL 1 MG/ML 2ML VIAL ONE (15:58)
[2019-02-23] MEDS ORDERED: NITROGLYCERIN/D5W 100MCG/ML 20ML SYR ONE (15:59)
--- NOTE | 2019-02-23 16:06 | Pre Anesthesia Assessment ---
Date of Service February 23, 2019 Pre Sedation Assessment Vital Signs Temp Pulse Pulse Resp BP BP BP 02/23/19 13:10 36.5 C 50 L 20 143/65 H 02/23/19 11:38 52 L 18 129/74 02/23/19 10:15 02/23/19 09:38 36.9 C 59 L 18 173/93 H Pulse Ox 02/23/19 13:10 97 02/23/19 11:38 94 02/23/19 10:15 99 02/23/19 09:38 99 Cardiovascular + bradycardic Respiratory normal respiratory effort, lungs clear to auscultation Pre-Sedation Airway Assessment Smoking Status: Never smoker Mallampati Class: II ASA: ASA3 NPO Status Date of Last Intake of Fluids: 02/23/19 Time of Last Intake of Fluids: 13:30 Date of Last Intake of Solid Food: 02/23/19 Time of Last Intake of Solid Foods: 13:30 Procedure Planning Contraindications for Sedation: none Current Medications Reviewed: Yes Notes The planned sedation has been discussed with the patient. Informed Consent was obtained. I have identified the patient, determined the appropriateness of sedation and have assessed the patient immediately prior to the procedure. All medicine(s) and interventions are by my order.
--- NOTE | 2019-02-23 16:17 | Pre Anesthesia Assessment ---
Date of Service February 23, 2019 Pre Sedation Assessment Vital Signs Temp Pulse Pulse Resp BP BP BP 02/23/19 13:10 97.7 F 50 L 20 143/65 H 02/23/19 11:38 52 L 18 129/74 02/23/19 10:15 02/23/19 09:38 98.4 F 59 L 18 173/93 H Pulse Ox 02/23/19 13:10 97 02/23/19 11:38 94 02/23/19 10:15 99 02/23/19 09:38 99 Cardiovascular RRR, no murmur, no edema Respiratory normal respiratory effort, lungs clear to auscultation Pre-Sedation Airway Assessment Smoking Status: Never smoker Hx Sleep Apnea: No Hx Difficult Intubation: No Short, Thick Neck: No Thyromental Distance: > or= 3.5 Finger Breadths Mallampati Class: II ASA: ASA3 NPO Status Date of Last Intake of Fluids: 02/23/19 Time of Last Intake of Fluids: 13:30 Date of Last Intake of Solid Food: 02/23/19 Time of Last Intake of Solid Foods: 13:30 Procedure Planning Contraindications for Sedation: none Current Medications Reviewed: Yes Notes The planned sedation has been discussed with the patient. Informed Consent was obtained. I have identified the patient, determined the appropriateness of sedation and have assessed the patient immediately prior to the procedure. All medicine(s) and interventions are by my order.
--- NOTE | 2019-02-23 16:19 | Cardiac Catheterization ---
[facility] Data: Stopper Maker Cardiac Status Clinical evaluation leading to the procedure CAD Presenation: Non STEMI Anginal Classification: CCS IV Heart Failure: No Cardiogenic Shock within 24 Hours: No Cardiac Arrest within 24 Hours: No Imaging Studies Past 6 Months: Yes Stress Studies Past 6 Months: No Diagnostic Physicians Name: Cristian Hines MD Status: Urgent Closure Device Percutaneous Entry Location: Radial Closure Device: Radial Band Recommendations: PCI without planned CABG PCI Indication: PCI for high risk Non-ERIN Intraprocedure Events Significant Disection: No Perforation: No Cardiac Cath Procedure Full Procedure Date February 23, 2019 Pre-Procedure Diagnosis Pre-Procedure Diagnosis: Non STEMI AUC Score AUC Score: 8 Post-Procedure Diagnosis Post-Procedure Diagnosis: Severe CAD, Successful PCI and Normal Intracardiac Pressures Procedure(s) Performed Procedure(s) Performed: Coronary Angiography, Left Heart Cath and Drug Eluting Stent Stoker Installer Cristian Hines MD Bait Digger(s) Renetta Estimated Blood Loss Estimated Blood Loss: 10 Medication(s) Medication(s): Clopidogrel, Fentanyl, Heparin, Lidocaine 1%, Nicardipine, Nitroglycerin and Versed Summary of Findings Indication: High risk NSTEMI with refractory angina Access: 6 Fr slender right radial artery Catheters: EBU 3.5 guideFederico Findings: LM -luminal irregularities LAD -medium caliber, diffuse 30 to 40% proximal to mid disease, distal luminal irregularities as wraps around apex. Medium first diagonal with 30% ostial stenosis Circumflex -medium caliber, sequential 80 to 90% lesions in mid circumflex. 40 to 50% in proximal OM1 RCA -dominant, mild diffuse proximal mid disease, 90% focal mid stenosis after RV branch, 100% acute on chronic latemid occlusion. PDA, PLB's fill via [id number] collaterals LVEDP -13 -- PCI -- Antithrombotic therapy: Heparin, clopidogrel Procedure: Left main cannulated with EBU 3.5 guide Public Address Servicer 50 wire passed across lesion into distal vessel Mid circumflex lesion predilated with 2.0 compliant balloon Dilated lesion stented with 2.25 x 26 mm Javier drug-eluting stent Stent post-dilated with 2.5 noncompliant balloon IC vasodilators administered for spasm Post procedure TRISTON 3 flow, stent well expanded with minimal residual stenosis and no apparent cardiac complications. Arterial Closure: TR band Summary: 1. Severe two-vessel coronary artery disease -100% latemid RCA occlusion with [id number] collaterals Sequential 90% mid circumflex lesions 2. Normal intracardiac filling pressure 3. Successful PCI of mid circumflex with single drug-eluting stent (2.25 x 26 mm Javier; postdilated with 2.5 NC). Recommendations: To PCU for continued monitoring Loaded with clopidogrel 600 mg in catheterization laboratory technician Continue dual-antiplatelet therapy for ideally 1 year. In the setting of thrombocytopenia feel could discontinue clopidogrel at 3 months if needed. Continue statin, and ASCVD risk factor modification Consult cardiac Rehab Hemodynamics Rest Ao:: -- Final Ao: -- LV: -- Recommendations Recommendations: PCI without planned CABG Radiation Exposure (mGy) -- Contrast (mls) -- Drains Drains: none Anesthesia moderate Procedural Complication(s) None Disposition PCU I attest to the content of the Intraoperative Record and any orders documented therein. Any exceptions are noted below. [facility] Card Cath Procedure Codes Cardiac Catheterization Procedure 1: Cardiovascular Cath Procedures: 85172 Coronaries and LHC (+/-LV) Moderate Sedation Procedure 1: Sedation/Anesthesia: 22473 Mod Sedation by the same physician;Init15 Min Child Age 5 & Up Procedure 2: Sedation/Anesthesia: 07130 Mod Sedation by the same physician; Ea [id number] Minutes Stenting Procedure 1: Cardiovascular Stent Procedures: 16504 Perc transcatheter placement of intracoronary stent(s), with ang PG Care Time/CCT Total # of Minutes Spent Total Time Spent with Patient: Total time spent is greater than 50% in coordination of care (as documented) at patient's floor/unit and/or counseling patient:
[2019-02-23] MEDS ORDERED: CLOPIDOGREL BISULFATE 300 MG TAB ONE ×2 (17:06→17:10)
[2019-02-23] MEDS ORDERED: SODIUM CHLORIDE 0.9% 1000ML 1,000 ML IV SCH (17:30)
--- NOTE | 2019-02-23 18:39 | Cardiology Consultation ---
Date of Consultation February 23, 2019 Assessment & Plan (1) Non-ST elevation (NSTEMI) myocardial infarction: (2) CAD (coronary artery disease): (3) Mitral regurgitation: (4) Hypertension: (5) Chronic ITP (idiopathic thrombocytopenia): ASSESSMENT/PLAN: 1. Acute NSTEMI: Elevated troponins on presentation with ongoing angina. This is a was in the setting of adequate beta blocking with heart rate in the 50s, nitroglycerin paste, and heparin drip. Morphine was considered however he reports significant hallucinations in the past with 1 dose of morphine and therefore this was avoided. We discussed presentation, objective findings, and recommended cardiac catheterization on a more urgent basis given ongoing symptoms. Risk and benefits were discussed with him. He was made aware that CT surgery is not available at this facility. He was agreeable to undergo cardiac catheterization. Dr. Hines of interventional Cardiology was notified and was agreeable to undergo coronary angiography earlier this afternoon at the time of our meeting. Addendum: He was found to have occluded RCA with [id number] collaterals and severe mid circumflex sequential stenotic lesions of 90%. He underwent PCI of circumflex with 2.25 x 26 mm sydney TONIA, post dilated with 2.5 NC. 2. CAD: Cardiac catheterization findings as noted. He also had nonobstructive CAD involving the LAD. Recommend aspirin 81 mg daily indefinitely given PCI. Dual anti-platelet therapy for 1 year if possible. High-intensity statin therapy. Continue beta-kathi. 3. Mitral regurgitation: Non severe. Can monitor over time. 4. Hypertension: Blood pressure has been normotensive to mildly hypertensive. Currently blood pressure is acceptable. Continue home regimen. 5. Chronic ITP: Platelets today are acceptable. Dr. Mcgovern of Hematology/Oncology was personally called prior to cardiac catheterization to ensure that Mr. Tamayo could safely receive anti-platelet therapy. Dr. Mcgovern was agreeable that he could receive daily aspirin and even dual anti-platelet therapy if he should receive PCI. He stated that Hematology/Oncology will closely follow platelet levels and treat as appropriate. Patient and his did have questions regarding platelet levels and they appeared to be more comforted knowing that Hematology/Oncology was on board. 6. Disposition: Cardiology will continue to follow. Highly complex medical issues for which urgent cardiac catheterization was recommended. Thank you for allowing me to participate in the care of your patient. Please call for any other questions or concerns. Sincerely, Chi Sorenson M.D. History of Present Illness Reason for Consultation: NSTEMI Requesting Physician: Umair Rudd MD Attending Physician: Umair Rudd MD History of Present Illness Mr. Tamayo is a very pleasant 78-year-old gentleman with a history significant for hypertension, low grade lymphoma, and ITP, recently treated with IVIG. 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 He has been treated with several different therapies, most recently IVIG last week. He recalls feeling rigors during 1 of the infusions as he did un dergo 2 treatments last week. 1-2 days following treatment he felt achy in his bilateral arms. Then last evening, he felt tightness in his chest, across his chest. He went to bed with the pain and when he awaken in the morning, his chest tightness was worse. At first he thought it was muscular but because the pain worsen, he reported to the emergency department. He was diaphoretic but had no shortness of breath. There was no other radiation of the pain. In the ER, his initial troponin was elevated at 1.58, which increased to 2.74 when repeated earlier this afternoon. While in the ER, I was contacted by Dr. Wilcox. It was reported to me at that time that he was chest pain-free. He received nitroglycerin paste and heparin drip. He received aspirin at the time of this consultation, earlier this afternoon. The pain has not completely subsided since presentation, but he admits that when asked if he has pain, he would decline because he refers to his tightness as discomfort. He states that the chest tightness was much better but remains at approximately 1/10. He denies syncope, near-syncope, palpitations, or bleeding such as melena, hematochezia, or hematuria. He denies abdominal pain, nausea, vomiting, edema, or history of clot. Review of systems: As above. Review of systems otherwise negative/unremarkable. Family history: No known premature CAD. Social history: He denies tobacco abuse. He consumes 1 glass of wine most days of the week. No drugs. He is originally from [facility]. His [id number]-eqn, Rolan, and granddaughter, Adriana, were present at the bedside. He has 1 son, Lamberto. His was not initially present during our visit, but did present to the bedside. 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 Allergies Allergy/AdvReac Type Severity Reaction Status Date / Time Bactrim Allergy Severe HIVES, Verified 07/27/17 10:29 INTERFERES WITH IMMUNE SYSTEM Cipro Allergy Severe MUSCLE Verified 07/27/17 10:29 PROBLEMS ciprofloxacin Allergy Severe MUSCLE Verified 02/23/19 10:46 PROBLEMS morphine Allergy Severe HALLUCINATI Verified 02/23/19 10:46 ONS sulfamethoxazole Allergy Severe HIVES, Verified 02/23/19 10:46 INTERFERES WITH IMMUNE SYSTEM trimethoprim Allergy Severe HIVES, Verified 02/23/19 10:46 INTERFERES WITH IMMUNE SYSTEM Home Medications Home Medications Medication Instructions Recorded Confirmed Type amlodipine 5 mg PO QAM 04/15/18 02/23/19 History atenolol 50 mg PO QAM 04/15/18 02/23/19 History finasteride 5 mg PO QPM 04/15/18 02/23/19 History tamsulosin [Flomax] 0.4 mg PO QPM 04/15/18 02/23/19 History acetaminophen [Tylenol Extra 1,000 mg PO Q6H PRN 02/23/19 02/23/19 History Strength] immun glob A-eew-[id number] 0-50 0 g IV USEASDIRECTD 02/23/19 02/23/19 History Patient History Medical History BPH (benign prostatic hyperplasia) Chronic ITP (idiopathic thrombocytopenia) GERD (gastroesophageal reflux disease) MILD Hypertension Kidney stones 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 Pt denied any abnormal bleeding or bruising at heme appt 04/05/18 Surgical History History of adenoidectomy History of appendectomy History of colonoscopy History of cystoscopy STONE REMOVAL History of lithotripsy History of tonsillectomy History of tooth extraction History of total hip arthroplasty RT/LEFT Family History Other Hypertension Kidney disease Social History Preferred Language: Slovak Communication Ability: Effective Purse Seining Hand Required: No Beliefs That Will Affect Care: None Current Living Situation: Spouse Feels Safe at Home: Yes Smoking Status: Never smoker Second Hand Exposure: Yes ( A CHILD) ; Hx Alcohol Use: Yes Alcohol type: beer, wine and hard liquor Hx Substance Use: No Physical Exam Physical Exam: Gen.: No acute distress. Alert and oriented. HEENT: Anicteric sclera. Neck: No JVD. No bruits. Normal carotid upstrokes bilaterally. Cardiac: PMI was nondisplaced. No ventricular heave. Regular rate and rhythm. Normal S1-S2. No murmurs, rubs, or gallops. Pulmonary: Clear to auscultation bilaterally without wheezes, rales, or rhonchi. Abdomen: Soft, nontender, nondistended, with normoactive bowel sounds. No bruits noted. Extremities: 2+ radial pulses bilaterally. 2+ posterior tibialis pulses bilaterally. No edema or cyanosis. No palpable cords. Psychiatric: Affect appears appropriate. Chest: Nontender to palpation. Results & Data Vital Signs (Past 12 Hours) Vital Signs Temp Pulse Pulse Resp BP BP BP 02/23/19 18:03 36.7 C 55 L 20 139/75 02/23/19 17:48 36.6 C 55 L 20 136/70 02/23/19 17:33 36.7 C 49 L 20 139/68 02/23/19 13:10 36.5 C 50 L 20 143/65 H 02/23/19 11:38 52 L 18 129/74 02/23/19 10:15 02/23/19 09:38 36.9 C 59 L 18 173/93 H Pulse Ox 02/23/19 18:03 97 02/23/19 17:48 97 02/23/19 17:33 97 02/23/19 13:10 97 02/23/19 11:38 94 02/23/19 10:15 99 02/23/19 09:38 99 Laboratory Results Laboratory Results - last 24 hr 02/23/19 02/23/19 02/23/19 10:00 10:00 10:00 WBC 9.84 RBC 4.79 Hgb 15.3 Hct 44.2 MCV 92.3 MCH 31.9 MCHC 34.6 RDW Std Deviation 44.9 RDW Coeff of Katarina 13.3 Plt Count 212 MPV 10.0 Immature Gran % (Auto) 0.4 Neut % (Auto) 67.7 Lymph % (Auto) 18.8 [place] % (Auto) 12.1 Eos % (Auto) 0.5 Baso % (Auto) 0.5 Immature Gran # (Auto) 0.04 H Neut # (Auto) 6.66 H Lymph # (Auto) 1.85 [place] # (Auto) 1.19 H Eos # (Auto) 0.05 Baso # (Auto) 0.05 PT 12.3 H INR 1.2 H Activ Coag Time Kaolin Sodium 137 Potassium 3.7 Chloride 107 Carbon Dioxide 25 Anion Gap 6.0 BUN 28 H Creatinine 1.27 Est Cr Clr Drug Dosing 46.4 Est GFR ( Amer) 61.9 Est GFR (Non-Af Amer) 53.4 BUN/Creatinine Ratio 22.0 H Glucose 113 H Calcium 9.2 Magnesium Total Bilirubin 1.0 AST 44 H ALT 69 Alkaline Phosphatase 45 Total Creatine Kinase 104 CK-MB (CK-2) 5.5 H CK/CKMB % Calc 5.3 H Troponin I 1.580 H* NT-Pro-B Natriuret Pep Total Protein 8.7 H Albumin 3.4 Globulin 5.3 H Albumin/Globulin Ratio 0.6 L Lipase 325 TSH Urine Color Urine Appearance Urine pH Ur Specific Pep Urine Protein Urine Glucose (UA) Urine Ketones Urine Blood Urine Nitrite Urine Bilirubin Urine Urobilinogen Ur Leukocyte Esterase Urine WBC (Auto) Urine RBC (Auto) U Hyaline Cast (Auto) U Epithel Cells (Auto) Urine Bacteria (Auto) 02/23/19 02/23/19 02/23/19 11:00 13:33 13:33 WBC RBC Hgb Hct MCV MCH MCHC RDW Std Deviation RDW Coeff of Katarina Plt Count MPV Immature Gran % (Auto) Neut % (Auto) Lymph % (Auto) [place] % (Auto) Eos % (Auto) Baso % (Auto) Immature Gran # (Auto) Neut # (Auto) Lymph # (Auto) [place] # (Auto) Eos # (Auto) Baso # (Auto) PT INR Activ Coag Time Kaolin Sodium Potassium Chloride Carbon Dioxide Anion Gap BUN Creatinine Est Cr Clr Drug Dosing Est GFR ( Amer) Est GFR (Non-Af Amer) BUN/Creatinine Ratio Glucose Calcium Magnesium 2.1 Total Bilirubin AST ALT Alkaline Phosphatase Total Creatine Kinase CK-MB (CK-2) CK/CKMB % Calc Troponin I 2.740 H* NT-Pro-B Natriuret Pep 773 Total Protein Albumin Globulin Albumin/Globulin Ratio Lipase TSH 1.530 Urine Color Yellow Urine Appearance Cloudy A Urine pH 6.5 Ur Specific Pep 1.009 Urine Protein Negative Urine Glucose (UA) Negative Urine Ketones Negative Urine Blood Trace H Urine Nitrite Negative Urine Bilirubin Negative Urine Urobilinogen Negative Ur Leukocyte Esterase Negative Urine WBC (Auto) 1-5 Urine RBC (Auto) 0-4 U Hyaline Cast (Auto) 0 U Epithel Cells (Auto) 0-5 Urine Bacteria (Auto) Negative 02/23/19 16:59 WBC RBC Hgb Hct MCV MCH MCHC RDW Std Deviation RDW Coeff of Katarina Plt Count MPV Immature Gran % (Auto) Neut % (Auto) Lymph % (Auto) [place] % (Auto) Eos % (Auto) Baso % (Auto) Immature Gran # (Auto) Neut # (Auto) Lymph # (Auto) [place] # (Auto) Eos # (Auto) Baso # (Auto) PT INR Activ Coag Time Kaolin 241 H Sodium Potassium Chloride Carbon Dioxide Anion Gap BUN Creatinine Est Cr Clr Drug Dosing Est GFR ( Amer) Est GFR (Non-Af Amer) BUN/Creatinine Ratio Glucose Calcium Magnesium Total Bilirubin AST ALT Alkaline Phosphatase Total Creatine Kinase CK-MB (CK-2) CK/CKMB % Calc Troponin I NT-Pro-B Natriuret Pep Total Protein Albumin Globulin Albumin/Globulin Ratio Lipase TSH Urine Color Urine Appearance Urine pH Ur Specific Pep Urine Protein Urine Glucose (UA) Urine Ketones Urine Blood Urine Nitrite Urine Bilirubin Urine Urobilinogen Ur Leukocyte Esterase Urine WBC (Auto) Urine RBC (Auto) U Hyaline Cast (Auto) U Epithel Cells (Auto) Urine Bacteria (Auto) Diagnostic Findings ECGs personally reviewed: ECG 02/23/2019 at 1:34 p.m.: Sinus bradycardia 47 bpm. Inferior infarct. ECG 02/23/2019 at 9:50 a.m.: Sinus bradycardia 54 bpm. Inferior infarct. Echo 02/23/2019: Images were reviewed at the bedside while the echo was being completed. The inferolateral wall appeared to be mildly hypokinetic. EF was normal however with estimated EF of 55-60%. Mild AI and moderate MR. Medications Administered Current Inpatient Medications Acetaminophen (Tylenol) 650 mg PO Q4H PRN PRN Reason: Pain or Fever Stop: 03/25/19 13:19 Al Hydrox/Mg Hydrox/Simethicone (Maalox) 15 ml PO Q4H PRN PRN Reason: Dyspepsia Stop: 03/25/19 13:19 Amlodipine Besylate (Norvasc) 5 mg PO QAM [facility] Stop: 03/26/19 08:59 Atenolol (Tenormin) 50 mg PO QAM [facility] Stop: 03/26/19 08:59 Clopidogrel Bisulfate (Plavix) 75 mg PO QAM [facility] Stop: 03/26/19 08:59 Finasteride (Proscar) 5 mg PO QPM [facility] Stop: 03/25/19 20:59 Sodium Chloride (Nss 1000ml) 1,000 mls @ 100 mls/hr IV .Q10H ERIKC Stop: 02/24/19 00:59 Last Admin: 02/23/19 17:44 Dose: 100 mls/hr Documented by: Magnesium Hydroxide (Milk Of Magnesia) 30 ml PO Q12H PRN PRN Reason: Constipation Stop: 03/25/19 13:19 Morphine Sulfate (Morphine Sulfate) 2 mg IV Q30M PRN PRN Reason: Chest Pain Stop: 03/09/19 13:19 Nitroglycerin (Nitrostat) 0.4 mg SL UD PRN PRN Reason: Chest Pain Stop: 03/25/19 13:19 Ondansetron HCl (Zofran) 4 mg IV Q6H PRN PRN Reason: Nausea Stop: 03/25/19 13:19 Polyethylene Glycol (Miralax Powder Packet) 17 gm PO DAILY PRN PRN Reason: Constipation Stop: 03/25/19 13:19 Tamsulosin HCl (Flomax) 0.4 mg PO QPM ERICK Stop: 03/25/19 20:59 PG Care Time/CCT Total # of Minutes Spent Total Time Spent with Patient: Total time spent is greater than 50% in coordination of care (as documented) at patient's floor/unit and/or counseling patient:
[2019-02-23] MEDS: FINASTERIDE 5 MG TAB PO SCH (22:03)
[2019-02-23] MEDS: TAMSULOSIN HCL 0.4 MG CAP PO SCH (22:03)
[2019-02-24 06:41] LABS: Partial Thromboplastin Time 26.3 Seconds (21.0-31.0)
[2019-02-24 07:07] LABS: Hematocrit (blood only) 40.2 % (42-52); Hemoglobin 13.8 g/dL (14.0-18.0); Mean Corpuscular Hemoglobin 31.2 pg (25-34); Mean Corpuscular Hgb Conc 34.3 g/dL (32-36); Mean Platelet Volume 10.4 fL (7.4-10.4); Platelet Count 214 K/uL (130-400); RDW Coefficient of Variation 13.4 % (11.5-14.5); RDW Standard Deviation 44.1 fL (36.4-46.3); Red Blood Count 4.42 M/uL (4.7-6.1)
[2019-02-24 07:08] LABS: Basophils # (auto) 0.04 K/uL (0-0.2); Basophils % (auto) 0.5 %; Eosinophils # (auto) 0.13 K/uL (0-0.5); Eosinophils % (auto) 1.8 %; Immature Granulocytes # (auto) 0.03 K/uL (0.00-0.02); Immature Granulocytes % (auto) 0.4 %; Lymphocytes # (auto) 1.98 K/uL (1.2-3.4); Lymphocytes % (auto) 26.8 %; Monocytes # (auto) 0.74 K/uL (0.11-0.59); Neutrophils # (auto) 4.48 K/uL (1.4-6.5); Neutrophils % (auto) 60.5 %; Platelet Estimate Normal (Normal)
[2019-02-24 07:11] LABS: BUN Creatinine Ratio 19.2 (10-20); Creatinine Clr Calc Pharmacy 49.3 ml/min; Est GFR (African American) 66.9; Est GFR (Non-African American) 57.8; Potassium 3.8 mmol/L (3.5-5.1)
[2019-02-24 07:14] LABS: Albumin Globulin Ratio 0.6 (0.9-2); Bilirubin,Total 1.1 mg/dl (0.2-1); Globulin 4.7 gm/dl (2.5-4.0); Total Protein 7.7 gm/dl (6.4-8.2)
[2019-02-24 07:23] LABS: Estimated Average Glucose 100 mg/dl; Hemoglobin A1C 5.1 % (4.5-5.6)
[2019-02-24] MEDS: CLOPIDOGREL BISULFATE 75 MG TAB PO SCH (08:17)
[2019-02-24] MEDS ORDERED: AMLODIPINE BESYLATE 5 MG TAB PO SCH (09:00)
[2019-02-24] MEDS ORDERED: ATENOLOL 50 MG TABLET PO SCH (09:00)
[2019-02-24] MEDS ORDERED: ASPIRIN 81 MG ECTAB PO SCH (09:45)
[2019-02-24] MEDS ORDERED: lisinopriL 5 MG TAB PO SCH (09:45)
--- NOTE | 2019-02-24 09:47 | Cardiology Progress Note ---
Date of Service February 24, 2019 Assessment & Plan (1) Non-ST elevation (NSTEMI) myocardial infarction: (2) CAD (coronary artery disease): (3) Mitral regurgitation: (4) Hypertension: (5) Paroxysmal ventricular tachycardia: (6) Chronic ITP (idiopathic thrombocytopenia): ASSESSMENT/PLAN: 1. Acute NSTEMI: Angina resolved following circumflex PCI. Continue aspirin 81 mg daily indefinitely. Continue Plavix, preferably for 1 year but for at least 3 months if his platelet count will allow with his ITP history. Continue beta- kathi. Start LILIANA-inhibitor. High-intensity statin therapy. Cardiac rehab on discharge, which was discussed with him and he is agreeable. Repeat ECG. 2. CAD s/p Cx PCI: He also has residual mid RCA 100%, with [id number] collaterals. He also had nonobstructive CAD involving the LAD. Recommend aspirin 81 mg daily indefinitely given PCI. Dual anti-platelet therapy for 1 year if possible. High-intensity statin therapy. Continue beta-kathi. 3. Mitral regurgitation: Non severe. Can monitor over time. Discussed with patient. 4. Hypertension: Blood pressure has been normotensive to mildly hypertensive. Lisinopril 5 mg once daily. Can discontinue amlodipine for now and titrate LILIANA- inhibitor as necessary for blood pressure control. 5. Chronic ITP: Platelets today are acceptable. Dr. Mcgovern of Hematology/Oncology was personally called prior to cardiac catheterization on 02/23/2019 to ensure that Mr. Tamayo could safely receive anti-platelet therapy. Dr. Mcgovern was agreeable that he could receive daily aspirin and even dual anti- platelet therapy if he should receive PCI. He stated that Hematology/Oncology will closely follow platelet levels and treat as appropriate. 6. Paroxysmal ventricular tachycardia: Nonsustained ventricular tachycardia noted on telemetry. This was discussed with patient. Continue beta-kathi. Continue to monitor. 7. Disposition: Cardiology will continue to follow. Possible discharge tomorrow if no complications. Will start to arrange follow-up in 1-2 weeks in the outpatient setting. Patient care discussed with primary hospitalist Service, Dr. Bal. Subjective He feels well today. He states that after he had stent placed within his circumflex, his chest tightness resolved. He admits that he had 1/10 chest tightness up until that point. He has not had any further angina. He denies shortness of breath, syncope, near-syncope, palpitations, edema, or bleeding such as melena, hematochezia, or hematuria. He has not had any bleeding or pain from his right radial cath site. His son, Lamberto, is present at the bedside. Lamberto is an executive director of nursing here at [facility] within the foundation department. Review of systems: As above. Physical Exam Physical Exam: Gen.: No acute distress. Alert and oriented. HEENT: Anicteric sclera. Neck: No JVD. Cardiac: PMI was nondisplaced. No ventricular heave. Regular. Normal S1-S2. No murmurs, rubs, or gallops. Pulmonary: Clear to auscultation bilaterally without wheezes, rales, or rhonchi. Abdomen: Soft, nontender, nondistended, with normoactive bowel sounds. No bruits noted. Extremities: 2+ right radial pulse. Right radial cath site is clean, dry, and intact without erythema or discharge. No edema or cyanosis. Psychiatric: Affect appears appropriate. Results & Data Vital Signs (Past 12 Hours) Vital Signs Temp Pulse Resp BP BP Pulse Ox 02/24/19 07:18 37.0 C 61 16 139/71 96 02/24/19 05:17 36.8 C 59 L 22 148/71 H 96 02/23/19 23:33 36.5 C 55 L 20 146/83 H 97 02/23/19 22:03 51 L 14 143/77 H 96 Laboratory Results Laboratory Results - last 24 hr 02/23/19 02/23/19 02/23/19 10:00 10:00 10:00 WBC 9.84 RBC 4.79 Hgb 15.3 Hct 44.2 MCV 92.3 MCH 31.9 MCHC 34.6 RDW Std Deviation 44.9 RDW Coeff of Katarina 13.3 Plt Count 212 MPV 10.0 Immature Gran % (Auto) 0.4 Neut % (Auto) 67.7 Lymph % (Auto) 18.8 Amite % (Auto) 12.1 Eos % (Auto) 0.5 Baso % (Auto) 0.5 Immature Gran # (Auto) 0.04 H Neut # (Auto) 6.66 H Lymph # (Auto) 1.85 Amite # (Auto) 1.19 H Eos # (Auto) 0.05 Baso # (Auto) 0.05 Platelet Estimate PT 12.3 H INR 1.2 H APTT PTT Ratio Activ Coag Time Kaolin Sodium 137 Potassium 3.7 Chloride 107 Carbon Dioxide 25 Anion Gap 6.0 BUN 28 H Creatinine 1.27 Est Cr Clr Drug Dosing 46.4 Est GFR ( Amer) 61.9 Est GFR (Non-Af Amer) 53.4 BUN/Creatinine Ratio 22.0 H Glucose 113 H Estimat Average Glucose Hemoglobin A1c Calcium 9.2 Magnesium Total Bilirubin 1.0 AST 44 H ALT 69 Alkaline Phosphatase 45 Total Creatine Kinase 104 CK-MB (CK-2) 5.5 H CK/CKMB % Calc 5.3 H Troponin I 1.580 H* NT-Pro-B Natriuret Pep Total Protein 8.7 H Albumin 3.4 Globulin 5.3 H Albumin/Globulin Ratio 0.6 L Triglycerides Cholesterol LDL Cholesterol, Calc VLDL Cholesterol, Calc HDL Cholesterol Cholesterol/HDL Ratio Lipase 325 TSH Urine Color Urine Appearance Urine pH Ur Specific Murray Urine Protein Urine Glucose (UA) Urine Ketones Urine Blood Urine Nitrite Urine Bilirubin Urine Urobilinogen Ur Leukocyte Esterase Urine WBC (Auto) Urine RBC (Auto) U Hyaline Cast (Auto) U Epithel Cells (Auto) Urine Bacteria (Auto) 02/23/19 02/23/19 02/23/19 11:00 13:33 13:33 WBC RBC Hgb Hct MCV MCH MCHC RDW Std Deviation RDW Coeff of Katarina Plt Count MPV Immature Gran % (Auto) Neut % (Auto) Lymph % (Auto) Amite % (Auto) Eos % (Auto) Baso % (Auto) Immature Gran # (Auto) Neut # (Auto) Lymph # (Auto) Amite # (Auto) Eos # (Auto) Baso # (Auto) Platelet Estimate PT INR APTT PTT Ratio Activ Coag Time Kaolin Sodium Potassium Chloride Carbon Dioxide Anion Gap BUN Creatinine Est Cr Clr Drug Dosing Est GFR ( Amer) Est GFR (Non-Af Amer) BUN/Creatinine Ratio Glucose Estimat Average Glucose Hemoglobin A1c Calcium Magnesium 2.1 Total Bilirubin AST ALT Alkaline Phosphatase Total Creatine Kinase CK-MB (CK-2) CK/CKMB % Calc Troponin I 2.740 H* NT-Pro-B Natriuret Pep 773 Total Protein Albumin Globulin Albumin/Globulin Ratio Triglycerides Cholesterol LDL Cholesterol, Calc VLDL Cholesterol, Calc HDL Cholesterol Cholesterol/HDL Ratio Lipase TSH 1.530 Urine Color Yellow Urine Appearance Cloudy A Urine pH 6.5 Ur Specific Murray 1.009 Urine Protein Negative Urine Glucose (UA) Negative Urine Ketones Negative Urine Blood Trace H Urine Nitrite Negative Urine Bilirubin Negative Urine Urobilinogen Negative Ur Leukocyte Esterase Negative Urine WBC (Auto) 1-5 Urine RBC (Auto) 0-4 U Hyaline Cast (Auto) 0 U Epithel Cells (Auto) 0-5 Urine Bacteria (Auto) Negative 02/23/19 02/23/19 02/24/19 16:59 19:26 06:04 WBC 7.40 RBC 4.42 L Hgb 13.8 L Hct 40.2 L MCV 91.0 MCH 31.2 MCHC 34.3 RDW Std Deviation 44.1 RDW Coeff of Katarina 13.4 Plt Count 214 MPV 10.4 Immature Gran % (Auto) 0.4 Neut % (Auto) 60.5 Lymph % (Auto) 26.8 Amite % (Auto) 10.0 Eos % (Auto) 1.8 Baso % (Auto) 0.5 Immature Gran # (Auto) 0.03 H Neut # (Auto) 4.48 Lymph # (Auto) 1.98 Amite # (Auto) 0.74 H Eos # (Auto) 0.13 Baso # (Auto) 0.04 Platelet Estimate Normal PT INR APTT PTT Ratio Activ Coag Time Kaolin 241 H Sodium Potassium Chloride Carbon Dioxide Anion Gap BUN Creatinine Est Cr Clr Drug Dosing Est GFR ( Amer) Est GFR (Non-Af Amer) BUN/Creatinine Ratio Glucose Estimat Average Glucose Hemoglobin A1c Calcium Magnesium Total Bilirubin AST ALT Alkaline Phosphatase Total Creatine Kinase CK-MB (CK-2) CK/CKMB % Calc Troponin I 9.110 H* NT-Pro-B Natriuret Pep Total Protein Albumin Globulin Albumin/Globulin Ratio Triglycerides Cholesterol LDL Cholesterol, Calc VLDL Cholesterol, Calc HDL Cholesterol Cholesterol/HDL Ratio Lipase TSH Urine Color Urine Appearance Urine pH Ur Specific Murray Urine Protein Urine Glucose (UA) Urine Ketones Urine Blood Urine Nitrite Urine Bilirubin Urine Urobilinogen Ur Leukocyte Esterase Urine WBC (Auto) Urine RBC (Auto) U Hyaline Cast (Auto) U Epithel Cells (Auto) Urine Bacteria (Auto) 02/24/19 02/24/19 02/24/19 06:04 06:04 06:04 WBC RBC Hgb Hct MCV MCH MCHC RDW Std Deviation RDW Coeff of Katarina Plt Count MPV Immature Gran % (Auto) Neut % (Auto) Lymph % (Auto) Amite % (Auto) Eos % (Auto) Baso % (Auto) Immature Gran # (Auto) Neut # (Auto) Lymph # (Auto) Amite # (Auto) Eos # (Auto) Baso # (Auto) Platelet Estimate PT INR APTT 26.3 PTT Ratio 1.0 Activ Coag Time Kaolin Sodium 139 Potassium 3.8 Chloride 110 H Carbon Dioxide 22 Anion Gap 7.0 BUN 23 H Creatinine 1.19 Est Cr Clr Drug Dosing 49.3 Est GFR ( Amer) 66.9 Est GFR (Non-Af Amer) 57.8 BUN/Creatinine Ratio 19.2 Glucose 93 Estimat Average Glucose 100 Hemoglobin A1c 5.1 Calcium 9.0 Magnesium Total Bilirubin 1.1 H AST 80 H ALT 64 Alkaline Phosphatase 40 L Total Creatine Kinase CK-MB (CK-2) CK/CKMB % Calc Troponin I NT-Pro-B Natriuret Pep Total Protein 7.7 Albumin 3.0 L Globulin 4.7 H Albumin/Globulin Ratio 0.6 L Triglycerides 175 H Cholesterol 150 LDL Cholesterol, Calc 75 VLDL Cholesterol, Calc 35 HDL Cholesterol 40 Cholesterol/HDL Ratio 4 Lipase TSH Urine Color Urine Appearance Urine pH Ur Specific Murray Urine Protein Urine Glucose (UA) Urine Ketones Urine Blood Urine Nitrite Urine Bilirubin Urine Urobilinogen Ur Leukocyte Esterase Urine WBC (Auto) Urine RBC (Auto) U Hyaline Cast (Auto) U Epithel Cells (Auto) Urine Bacteria (Auto) 02/24/19 06:04 WBC RBC Hgb Hct MCV MCH MCHC RDW Std Deviation RDW Coeff of Katarina Plt Count MPV Immature Gran % (Auto) Neut % (Auto) Lymph % (Auto) Amite % (Auto) Eos % (Auto) Baso % (Auto) Immature Gran # (Auto) Neut # (Auto) Lymph # (Auto) Amite # (Auto) Eos # (Auto) Baso # (Auto) Platelet Estimate PT INR APTT PTT Ratio Activ Coag Time Kaolin Sodium Potassium Chloride Carbon Dioxide Anion Gap BUN Creatinine Est Cr Clr Drug Dosing Est GFR ( Amer) Est GFR (Non-Af Amer) BUN/Creatinine Ratio Glucose Estimat Average Glucose Hemoglobin A1c Calcium Magnesium Total Bilirubin AST ALT Alkaline Phosphatase Total Creatine Kinase CK-MB (CK-2) CK/CKMB % Calc Troponin I 17.000 H* NT-Pro-B Natriuret Pep Total Protein Albumin Globulin Albumin/Globulin Ratio Triglycerides Cholesterol LDL Cholesterol, Calc VLDL Cholesterol, Calc HDL Cholesterol Cholesterol/HDL Ratio Lipase TSH Urine Color Urine Appearance Urine pH Ur Specific Murray Urine Protein Urine Glucose (UA) Urine Ketones Urine Blood Urine Nitrite Urine Bilirubin Urine Urobilinogen Ur Leukocyte Esterase Urine WBC (Auto) Urine RBC (Auto) U Hyaline Cast (Auto) U Epithel Cells (Auto) Urine Bacteria (Auto) Diagnostic Findings Telemetry personally reviewed: Sinus rhythm. There are occasional episodes of nonsustained ventricular tachycardia, the longest consisting of 6 beats. No sustained arrhythmia. Medications Administered Current Inpatient Medications Acetaminophen (Tylenol) 650 mg PO Q4H PRN PRN Reason: Pain or Fever Stop: 03/25/19 13:19 Al Hydrox/Mg Hydrox/Simethicone (Maalox) 15 ml PO Q4H PRN PRN Reason: Dyspepsia Stop: 03/25/19 13:19 Aspirin ([facility]) [facility] [place]: 03/26/19 09:44 Atenolol (Tenormin) [facility] [place] Stop: 03/26/19 08:59 Last Admin: 02/24/19 08:17 Dose: 50 mg Documented by: Atorvastatin Calcium (Lipitor) 80 mg PO [facility] Stop: 03/26/19 20:59 Clopidogrel Bisulfate (Plavix) [facility] [place] Stop: 03/26/19 08:59 Last Admin: 02/24/19 08:17 Dose: 75 mg Documented by: Finasteride (Proscar) 5 mg PO QPM [facility] Stop: 03/25/19 20:59 Last Admin: 02/23/19 22:03 Dose: 5 mg Documented by: Lisinopril (Zestril) [facility] [place] Stop: 03/26/19 09:44 Magnesium Hydroxide (Milk Of Magnesia) 30 ml PO Q12H PRN PRN Reason: Constipation Stop: 03/25/19 13:19 Morphine Sulfate (Morphine Sulfate) 2 mg IV Q30M PRN PRN Reason: Chest Pain Stop: 03/09/19 13:19 Nitroglycerin (Nitrostat) 0.4 mg SL UD PRN PRN Reason: Chest Pain Stop: 03/25/19 13:19 Ondansetron HCl (Zofran) 4 mg IV Q6H PRN PRN Reason: Nausea Stop: 03/25/19 13:19 Polyethylene Glycol (Miralax Powder Packet) 17 gm PO DAILY PRN PRN Reason: Constipation Stop: 03/25/19 13:19 Tamsulosin HCl (Flomax) 0.4 mg PO QPM ERICK Stop: 03/25/19 20:59 Last Admin: 02/23/19 22:03 Dose: 0.4 mg Documented by: PG Care Time/CCT Total # of Minutes Spent Total Time Spent with Patient: Total time spent is greater than 50% in coordination of care (as documented) at patient's floor/unit and/or counseling patient:
--- NOTE | 2019-02-24 10:23 | Hospitalist Progress Note ---
Date of Service February 24, 2019 Assessment & Plan (1) Non-ST elevation (NSTEMI) myocardial infarction: 77 y/o M with PMH of ITP, Hypertension, BPH; came to the hospital with chest pain and tightness, with elevated troponins and increase in baseline platelets was taken to cardiac catheterization technologist on 02/23 resulting in PCI to L circumflex Acute NSTEMI: - Angina resolved following PCI placement in Left circumflex - Cardiology consulted: appreciate recommendations - start ASA 81 mg daily - Continue Plavix, at least 3 months if his platelet count will allow with his ITP history. - switched atenolol for Metoprolol 50mg daily - switched amlodipine for lisinopril - started atorvastatin CAD s/p Cx PCI: - residual mid RCA 100%, with [id number] collaterals - as above for treatment recs Hypertension: - started Lisinopril 5 mg once daily; discontinued amlodipine - will continue to monitor for potential titration up of lisinopril Chronic ITP: - Platelets today are acceptable. - will be followed closely following start of ASA and Plavix Paroxysmal ventricular tachycardia: - Nonsustained ventricular tachycardia noted on tele - Discontinued Atenolol in favor of Metoprolol 50mg - Continue to monitor. Diet: Heart healthy Code: Full Code DVT PPx: SCDs (2) CAD (coronary artery disease): (3) Mitral regurgitation: (4) Chronic ITP (idiopathic thrombocytopenia): Supervising Physician Co-Signing Physician Notes I personally examined the patient and verified all omalley points of history and exam, discussed case, and agree with decision making with Dr Bal. Feeling better. No chest pain no shortness of breath. Discussed importance of med regimen, he expressed understanding. Discussed diet and exercise changeshe does exercise regularly, generally 1/2-hour walk or more with his , whenever he does not run into issues with the ITP he also swims about a mile a week. He notes his eating habits definitely could see some improvement, he eats a significant amount of saturated fats in the form of cheese, butter, and pacheco (he notes multiple times it will be difficult to eat less pacheco), as well as significant amount of simple carbohydrates. Vitals noted, in general he is awake and alert pleasant no distress. HEENT normocephalic atraumatic mucous membranes moist. Breathing unlabored no accessory muscle use good effort. Skin shows no rashes no pallor or icterus. Neuro shows no focal deficits. Non-ST elevation (NSTEMI) myocardial infarction, POAnow status post cath and stenting, med management, educating on lifestyle change. Supportive care, hopefully home tomorrow. otherwise as above Subjective Patient is feeling much better as of this morning and overnight; since receiving his stent yesterday has not had any more of the chest pain or discomfort that he was having upon presentation to the hospital. He is happy that his platelets have remained on the higher end, and knows that going forward with the initiation of the aspirin he will need to be closely followed to ensure that his platelets do not trend back down to the point were he was before the IVIG treatments. Review of Systems Constitutional: no fever, no chills and no sweats Eyes: no blind spots, no loss of peripheral vision and no photophobia Respiratory: no cough, no dyspnea and no wheezing Cardiovascular: no chest pain, no dyspnea, no orthopnea, no palpitations and no lightheadedness Gastrointestinal: no abdominal pain, no nausea and no vomiting Musculoskeletal: no back pain and no myalgia Physical Exam 2 Constitutional: well developed Eyes: PERRL, conjunctivae normal, anicteric sclerae ENMT: external ear and nose normal, oropharynx normal Respiratory: normal respiratory effort, lungs clear to auscultation Auscultation: no crackles, no rales and no wheezes Cardiovascular: RRR, no murmur, no edema Gastrointestinal (Abdomen): normal bowel sounds, soft, nontender, no hepatosplenomegaly Results & Data Vital Signs (Past 12 Hours) Vital Signs Temp Pulse Resp BP BP Pulse Ox 02/24/19 07:18 37.0 C 61 16 139/71 96 02/24/19 05:17 36.8 C 59 L 22 148/71 H 96 02/23/19 23:33 36.5 C 55 L 20 146/83 H 97 Laboratory Results 02/24/19 02/24/19 02/24/19 Range/Units 12:51 06:04 06:04 WBC (4.8-10.8) K/uL RBC (4.7-6.1) M/uL Hgb (14.0-18.0) g/dL Hct (42-52) % MCV (80-100) fL MCH (25-34) pg MCHC (32-36) g/dL RDW Std Deviation (36.4-46.3) fL RDW Coeff of Katarina (11.5-14.5) % Plt Count (130-400) K/uL MPV (7.4-10.4) fL Immature Gran % (Auto) % Neut % (Auto) % Lymph % (Auto) % Cocke % (Auto) % Eos % (Auto) % Baso % (Auto) % Immature Gran # (Auto) (0.00-0.02) K/uL Neut # (Auto) (1.4-6.5) K/uL Lymph # (Auto) (1.2-3.4) K/uL Cocke # (Auto) (0.11-0.59) K/uL Eos # (Auto) (0-0.5) K/uL Baso # (Auto) (0-0.2) K/uL Platelet Estimate (Normal) APTT (21.0-31.0) Seconds PTT Ratio Activ Coag Time Kaolin (94-140) SECONDS Sodium (136-145) mmol/L Potassium (3.5-5.1) mmol/L Chloride (98-107) mmol/L Carbon Dioxide (21-32) mmol/L Anion Gap (3-11) BUN (7-18) mg/dl Creatinine (0.6-1.4) mg/dl Est Cr Clr Drug Dosing ml/min Est GFR ( Amer) Est GFR (Non-Af Amer) BUN/Creatinine Ratio (10-20) Glucose (70-99) mg/dl Estimat Average Glucose 100 mg/dl Hemoglobin A1c 5.1 (4.5-5.6) % Calcium (8.5-10.1) mg/dl Magnesium (1.8-2.4) mg/dl Total Bilirubin (0.2-1) mg/dl AST (15-37) U/L ALT (12-78) U/L Alkaline Phosphatase (45-117) U/L Troponin I Pending 17.000 H* (0-0.045) ng/ml NT-Pro-B Natriuret Pep (0-1800) pg/ml Total Protein (6.4-8.2) gm/dl Albumin (3.4-5.0) gm/dl Globulin (2.5-4.0) gm/dl Albumin/Globulin Ratio (0.9-2) Triglycerides (0-150) mg/dl Cholesterol (0-200) mg/dl LDL Cholesterol, Calc mg/dl VLDL Cholesterol, Calc mg/dl HDL Cholesterol mg/dl Cholesterol/HDL Ratio TSH (0.300-4.500) uIu/ml 02/24/19 02/24/19 02/24/19 Range/Units 06:04 06:04 06:04 WBC 7.40 (4.8-10.8) K/uL RBC 4.42 L (4.7-6.1) M/uL Hgb 13.8 L (14.0-18.0) g/dL Hct 40.2 L (42-52) % MCV 91.0 (80-100) fL MCH 31.2 (25-34) pg MCHC 34.3 (32-36) g/dL RDW Std Deviation 44.1 (36.4-46.3) fL RDW Coeff of Katarina 13.4 (11.5-14.5) % Plt Count 214 (130-400) K/uL MPV 10.4 (7.4-10.4) fL Immature Gran % (Auto) 0.4 % Neut % (Auto) 60.5 % Lymph % (Auto) 26.8 % Cocke % (Auto) 10.0 % Eos % (Auto) 1.8 % Baso % (Auto) 0.5 % Immature Gran # (Auto) 0.03 H (0.00-0.02) K/uL Neut # (Auto) 4.48 (1.4-6.5) K/uL Lymph # (Auto) 1.98 (1.2-3.4) K/uL Cocke # (Auto) 0.74 H (0.11-0.59) K/uL Eos # (Auto) 0.13 (0-0.5) K/uL Baso # (Auto) 0.04 (0-0.2) K/uL Platelet Estimate Normal (Normal) APTT 26.3 (21.0-31.0) Seconds PTT Ratio 1.0 Activ Coag Time Kaolin (94-140) SECONDS Sodium 139 (136-145) mmol/L Potassium 3.8 (3.5-5.1) mmol/L Chloride 110 H (98-107) mmol/L Carbon Dioxide 22 (21-32) mmol/L Anion Gap 7.0 (3-11) BUN 23 H (7-18) mg/dl Creatinine 1.19 (0.6-1.4) mg/dl Est Cr Clr Drug Dosing 49.3 ml/min Est GFR ( Amer) 66.9 Est GFR (Non-Af Amer) 57.8 BUN/Creatinine Ratio 19.2 (10-20) Glucose 93 (70-99) mg/dl Estimat Average Glucose mg/dl Hemoglobin A1c (4.5-5.6) % Calcium 9.0 (8.5-10.1) mg/dl Magnesium (1.8-2.4) mg/dl Total Bilirubin 1.1 H (0.2-1) mg/dl AST 80 H (15-37) U/L ALT 64 (12-78) U/L Alkaline Phosphatase 40 L (45-117) U/L Troponin I (0-0.045) ng/ml NT-Pro-B Natriuret Pep (0-1800) pg/ml Total Protein 7.7 (6.4-8.2) gm/dl Albumin 3.0 L (3.4-5.0) gm/dl Globulin 4.7 H (2.5-4.0) gm/dl Albumin/Globulin Ratio 0.6 L (0.9-2) Triglycerides 175 H (0-150) mg/dl Cholesterol 150 (0-200) mg/dl LDL Cholesterol, Calc 75 mg/dl VLDL Cholesterol, Calc 35 mg/dl HDL Cholesterol 40 mg/dl Cholesterol/HDL Ratio 4 TSH (0.300-4.500) uIu/ml 02/23/19 02/23/19 02/23/19 Range/Units 19:26 16:59 13:33 WBC (4.8-10.8) K/uL RBC (4.7-6.1) M/uL Hgb (14.0-18.0) g/dL Hct (42-52) % MCV (80-100) fL MCH (25-34) pg MCHC (32-36) g/dL RDW Std Deviation (36.4-46.3) fL RDW Coeff of Katarina (11.5-14.5) % Plt Count (130-400) K/uL MPV (7.4-10.4) fL Immature Gran % (Auto) % Neut % (Auto) % Lymph % (Auto) % Cocke % (Auto) % Eos % (Auto) % Baso % (Auto) % Immature Gran # (Auto) (0.00-0.02) K/uL Neut # (Auto) (1.4-6.5) K/uL Lymph # (Auto) (1.2-3.4) K/uL Cocke # (Auto) (0.11-0.59) K/uL Eos # (Auto) (0-0.5) K/uL Baso # (Auto) (0-0.2) K/uL Platelet Estimate (Normal) APTT (21.0-31.0) Seconds PTT Ratio Activ Coag Time Kaolin 241 H (94-140) SECONDS Sodium (136-145) mmol/L Potassium (3.5-5.1) mmol/L Chloride (98-107) mmol/L Carbon Dioxide (21-32) mmol/L Anion Gap (3-11) BUN (7-18) mg/dl Creatinine (0.6-1.4) mg/dl Est Cr Clr Drug Dosing ml/min Est GFR ( Amer) Est GFR (Non-Af Amer) BUN/Creatinine Ratio (10-20) Glucose (70-99) mg/dl Estimat Average Glucose mg/dl Hemoglobin A1c (4.5-5.6) % Calcium (8.5-10.1) mg/dl Magnesium (1.8-2.4) mg/dl Total Bilirubin (0.2-1) mg/dl AST (15-37) U/L ALT (12-78) U/L Alkaline Phosphatase (45-117) U/L Troponin I 9.110 H* 2.740 H* (0-0.045) ng/ml NT-Pro-B Natriuret Pep (0-1800) pg/ml Total Protein (6.4-8.2) gm/dl Albumin (3.4-5.0) gm/dl Globulin (2.5-4.0) gm/dl Albumin/Globulin Ratio (0.9-2) Triglycerides (0-150) mg/dl Cholesterol (0-200) mg/dl LDL Cholesterol, Calc mg/dl VLDL Cholesterol, Calc mg/dl HDL Cholesterol mg/dl Cholesterol/HDL Ratio TSH (0.300-4.500) uIu/ml 02/23/19 Range/Units 13:33 WBC (4.8-10.8) K/uL RBC (4.7-6.1) M/uL Hgb (14.0-18.0) g/dL Hct (42-52) % MCV (80-100) fL MCH (25-34) pg MCHC (32-36) g/dL RDW Std Deviation (36.4-46.3) fL RDW Coeff of Katarina (11.5-14.5) % Plt Count (130-400) K/uL MPV (7.4-10.4) fL Immature Gran % (Auto) % Neut % (Auto) % Lymph % (Auto) % Cocke % (Auto) % Eos % (Auto) % Baso % (Auto) % Immature Gran # (Auto) (0.00-0.02) K/uL Neut # (Auto) (1.4-6.5) K/uL Lymph # (Auto) (1.2-3.4) K/uL Cocke # (Auto) (0.11-0.59) K/uL Eos # (Auto) (0-0.5) K/uL Baso # (Auto) (0-0.2) K/uL Platelet Estimate (Normal) APTT (21.0-31.0) Seconds PTT Ratio Activ Coag Time Kaolin (94-140) SECONDS Sodium (136-145) mmol/L Potassium (3.5-5.1) mmol/L Chloride (98-107) mmol/L Carbon Dioxide (21-32) mmol/L Anion Gap (3-11) BUN (7-18) mg/dl Creatinine (0.6-1.4) mg/dl Est Cr Clr Drug Dosing ml/min Est GFR ( Amer) Est GFR (Non-Af Amer) BUN/Creatinine Ratio (10-20) Glucose (70-99) mg/dl Estimat Average Glucose mg/dl Hemoglobin A1c (4.5-5.6) % Calcium (8.5-10.1) mg/dl Magnesium 2.1 (1.8-2.4) mg/dl Total Bilirubin (0.2-1) mg/dl AST (15-37) U/L ALT (12-78) U/L Alkaline Phosphatase (45-117) U/L Troponin I (0-0.045) ng/ml NT-Pro-B Natriuret Pep 773 (0-1800) pg/ml Total Protein (6.4-8.2) gm/dl Albumin (3.4-5.0) gm/dl Globulin (2.5-4.0) gm/dl Albumin/Globulin Ratio (0.9-2) Triglycerides (0-150) mg/dl Cholesterol (0-200) mg/dl LDL Cholesterol, Calc mg/dl VLDL Cholesterol, Calc mg/dl HDL Cholesterol mg/dl Cholesterol/HDL Ratio TSH 1.530 (0.300-4.500) uIu/ml Medications Administered Current Inpatient Medications Acetaminophen (Tylenol) 650 mg PO Q4H PRN PRN Reason: Pain or Fever Stop: 03/25/19 13:19 Al Hydrox/Mg Hydrox/Simethicone (Maalox) 15 ml PO Q4H PRN PRN Reason: Dyspepsia Stop: 03/25/19 13:19 Aspirin (Ecotrin Ectab) 81 mg PO [facility] Stop: 03/26/19 09:44 Last Admin: 02/24/19 11:30 Dose: 81 mg Documented by: Atorvastatin Calcium (Lipitor) 80 mg PO HS [facility] Stop: 03/26/19 20:59 Clopidogrel Bisulfate (Plavix) 75 mg PO [facility] Stop: 03/26/19 08:59 Last Admin: 02/24/19 08:17 Dose: 75 mg Documented by: Finasteride (Proscar) 5 mg PO QPM [facility] Stop: 03/25/19 20:59 Last Admin: 02/23/19 22:03 Dose: 5 mg Documented by: Lisinopril (Zestril) 5 mg PO [facility] Stop: 03/26/19 09:44 Last Admin: 02/24/19 11:30 Dose: 5 mg Documented by: Magnesium Hydroxide (Milk Of Magnesia) 30 ml PO Q12H PRN PRN Reason: Constipation Stop: 03/25/19 13:19 Metoprolol Succinate (Toprol Xl) 50 mg PO [facility] Stop: 03/27/19 08:59 Morphine Sulfate (Morphine Sulfate) 2 mg IV Q30M PRN PRN Reason: Chest Pain Stop: 03/09/19 13:19 Nitroglycerin (Nitrostat) 0.4 mg SL UD PRN PRN Reason: Chest Pain Stop: 03/25/19 13:19 Ondansetron HCl (Zofran) 4 mg IV Q6H PRN PRN Reason: Nausea Stop: 03/25/19 13:19 Polyethylene Glycol (Miralax Powder Packet) 17 gm PO DAILY PRN PRN Reason: Constipation Stop: 03/25/19 13:19 Tamsulosin HCl (Flomax) 0.4 mg PO QPM [facility] Stop: 03/25/19 20:59 Last Admin: 02/23/19 22:03 Dose: 0.4 mg Documented by: Resident Activity Tracking Resident Involvement: Resident Care Provided Care Provided: Adult Hospital Medicine
[2019-02-24] MEDS: ASPIRIN 81 MG ECTAB PO SCH (11:30)
[2019-02-24] MEDS: lisinopriL 5 MG TAB PO SCH (11:30)
--- NOTE | 2019-02-24 14:44 | Billing Data ---
Date of Service February 24, 2019 Coding Level of Care Code 13387 Subseq Hosp Care Lvl 3
[2019-02-24] MEDS ORDERED: ATORVASTATIN 40 MG TAB PO SCH (21:00)
[2019-02-24] MEDS: TAMSULOSIN HCL 0.4 MG CAP PO SCH (21:05)
[2019-02-24] MEDS: FINASTERIDE 5 MG TAB PO SCH (21:05)
[2019-02-25 06:21] LABS: Partial Thromboplastin Ratio 0.9; Partial Thromboplastin Time 25.1 Seconds (21.0-31.0)
[2019-02-25 06:44] LABS: Albumin Level 2.9 gm/dl (3.4-5.0); BUN Creatinine Ratio 23.3 (10-20); Calcium 8.8 mg/dl (8.5-10.1); Creatinine Clr Calc Pharmacy 49.6 ml/min; Est GFR (African American) 74.4; Est GFR (Non-African American) 64.2
[2019-02-25 06:47] LABS: Albumin Globulin Ratio 0.6 (0.9-2); Bilirubin,Total 1.2 mg/dl (0.2-1); Total Protein 7.9 gm/dl (6.4-8.2)
[2019-02-25 06:50] LABS: Basophils # (auto) 0.06 K/uL (0-0.2); Basophils % (auto) 0.8 %; Eosinophils # (auto) 0.22 K/uL (0-0.5); Eosinophils % (auto) 2.9 %; Hematocrit (blood only) 41.9 % (42-52); Hemoglobin 14.2 g/dL (14.0-18.0); Immature Granulocytes # (auto) 0.03 K/uL (0.00-0.02); Immature Granulocytes % (auto) 0.4 %; Lymphocytes # (auto) 1.49 K/uL (1.2-3.4); Lymphocytes % (auto) 19.9 %; Mean Corpuscular Hemoglobin 30.8 pg (25-34); Mean Corpuscular Hgb Conc 33.9 g/dL (32-36); Mean Corpuscular Volume 90.9 fL (80-100); Mean Platelet Volume 10.1 fL (7.4-10.4); Monocytes # (auto) 0.97 K/uL (0.11-0.59); Neutrophils # (auto) 4.72 K/uL (1.4-6.5); Platelet Count 244 K/uL (130-400); RDW Coefficient of Variation 13.4 % (11.5-14.5); RDW Standard Deviation 44.3 fL (36.4-46.3); Red Blood Count 4.61 M/uL (4.7-6.1); White Blood Count 7.49 K/uL (4.8-10.8)
--- NOTE | 2019-02-25 07:40 | Discharge Summary ---
Date of Service February 25, 2019 Admission HPI Per Admitting Provider Patient is a 78 years old male with past medical history of low-grade lymphoma with bone marrow involvement, thrombocytopenia,ITP, prostatitis who came to the emergency room this morning with a complaint of chest pain. Patient was started on IVIG for thrombocytopenia Sunday and this week. Patient states that chest pain was on and off for 24 hours and this morning he woke up with chest pain. Patient said that longest occurrence of chest pain was for 1 hour. Patient reports feeling tightness in his chest and the discomfort. Patient said that nitroglycerin below the tongue helped and relieved the pain. Patient said prior to having IVIG infusion patient platelets were only 3000. Today they are 212 s/p IVIG. Patient reports no other issues. Patient denies fever, chills, abdominal pain, frequency, urgency. EKG shows sinus bradycardia 54 bpm, Q waves in II, III and aVF foot-inferior infarct, age undetermined with T wave inversion evident in inferior leads. This is different in comparison to patient previous EKG from April 12, 2018 or at least appears worse. Labs are reviewed: WBC is 9.84, hemoglobin 15.3, hematocrit 44.2, platelets 212, PT 12.3, INR 1.2, sodium 137, potassium 3.7, chloride 107 BUN 28, GFR 53.4, AST 44, ALT 69, troponin I 0.58, total protein is 8.7, albumin 0.6 lipase 325, BNP pending, TSH pending, magnesium pending. Urine is cloudy with trace blood negative nitrates and negative leukocyte esterase, negative bacteria. Lung volumes are normal. Lungs are clear. There is no pneumothorax or pleural effusion. Cardiomediastinal silhouette is stable. Mediastinal contours are normal. There is no evidence of pulmonary edema. No acute cardiopulmonary findings. Decision was made to admit patient to PCU on telemetry for elevated troponin, EKG changes, possibly due to demand ischemia, and chest pain. Principal Diagnosis NSTEMI Discharge Exam Constitutional well developed Eyes PERRL, conjunctivae normal, anicteric sclerae ENMT external ear and nose normal, oropharynx normal Respiratory normal respiratory effort, lungs clear to auscultation Auscultation: no crackles, no rales and no wheezes Cardiovascular RRR, no murmur, no edema Gastrointestinal (Abdomen) normal bowel sounds, soft, nontender, no hepatosplenomegaly Discharge Data Allergies Allergy/AdvReac Type Severity Reaction Status Date / Time Bactrim Allergy Severe HIVES, Verified 07/27/17 10:29 INTERFERES WITH IMMUNE SYSTEM Cipro Allergy Severe MUSCLE Verified 07/27/17 10:29 PROBLEMS ciprofloxacin Allergy Severe MUSCLE Verified 02/25/19 17:51 PROBLEMS morphine Allergy Severe HALLUCINATI Verified 02/25/19 17:51 ONS sulfamethoxazole Allergy Severe HIVES, Verified 02/25/19 17:51 INTERFERES WITH IMMUNE SYSTEM trimethoprim Allergy Severe HIVES, Verified 02/25/19 17:51 INTERFERES WITH IMMUNE SYSTEM Consultations 02/23/19 11:07 ED Decision to Admit Stat 02/23/19 11:21 Consult Cardiology Stat 02/23/19 13:20 Consult Cardiac Rehabilitation Routine Consult Cardiology Routine 02/23/19 17:19 Consult Cardiac Rehabilitation Routine Procedures Performed Operation Date: 02/23/19 16:00 Actual Procedures s Cineradiography w/Routine Exam - Morgan Hines MD p Aspiration/PCI w/TONIA for Stemi - Morgan Hines MD s Cath, Left with Cors and Vent - Morgan Hines MD echocardiogram - * EF 55-60% * mild hypokinesis of inferolateral wall Ordered Studies 02/23/19 15:57 CL Cath Imgs for PACS use only Routine Hospital Course (1) Non-ST elevation (NSTEMI) myocardial infarction: 77 y/o M with PMH of ITP, Hypertension, BPH; came to the hospital with chest pain and tightness, with elevated troponins and increase in baseline platelets was taken to laboratory [facility] on 02/23 resulting in PCI to L circumflex Acute NSTEMI: - Angina resolved following PCI placement in Left circumflex - continue ASA 81 mg daily - continue Plavix, at least 3 months if his platelet count will allow with his ITP history. - continue Metoprolol 50mg daily - continue lisinopril 5mg daily - continue atorvastatin CAD s/p Cx PCI: - residual mid RCA 100%, with [id number] collaterals - as above for treatment recs Hypertension: - continue Lisinopril 5 mg once daily Chronic ITP: - Platelets today are 244 - will be followed closely following start of ASA and Plavix Paroxysmal ventricular tachycardia: - Nonsustained ventricular tachycardia - continue Metoprolol 50mg Diet: Heart healthy Code Status: Full Code (2) CAD (coronary artery disease): (3) Mitral regurgitation: (4) Chronic ITP (idiopathic thrombocytopenia): Total Time Total Time Spent Total Time Spent (In Minutes): 35 Discharge Plan Discharge Items Patient Disposition: Home - Self-Care Reason For Visit: CHEST PAIN Discharge Diagnosis: NSTEMI Activity: Per Instructions section Non-emergency contact: Primary Care Provider, Specialist and [employer] Developer Call non-emergency contact if: your symptoms worsen and your wound has increased redness Follow-up/Referrals: Anais Pearson PA-C [Physician [employer]] - 03/06/19 1:30 pm (Please, follow up at [facility]iology Office with Dr. Sorenson's associate, Anais Pearson PA-C, on March 06 at 1:30 pm. *The office is located in [address] of [facility], next to this hospital. If you need to change this appointment, call the office at [phone].) Vani Mauro [Primary Care Provider] - 03/03/19 10:30 am (Please, follow up with Dr. Mauro on SundayMarch 03 at 10:30 am. *If you need to change this appointment, call the office at [phone]. ) Diet: Heart Healthy Addtl Attending Provider Instructions: You were admitted following having chest pain and tightness; as we were monitoring you during this admission, you had some changes to the enzymes produced by your heart and changes to the electrical activity of your heart, both of these indicated that you were having a form of a heart attack called a Non-ST Elevated Myocardial Infarct. Following this monitoring, and with the improvement in your platelets from the IVIG treatments, you were taken for a heart catheterization that demonstrated you had two blockages in the vessels to your heart; one vessel on the right side of your heart was 100% blocked but there was still good supply to that portion of your heart through additional flow, the other in the left side of your heart was stented to increase the blood flow that subsequently relieved your symptoms. As a result of this stent placement, you were started on medications that you will need to continue now that you are leaving the hospital. We switched your atenolol for metoprolol, as this is a better version of the same class of medication for your heart; additionally, we switched your Norvasc for Lisinopril, both of these medications work for controlling your blood pressure but the lisinopril is more protective of your heart after having a stent placed. We also started you on Atorvastatin for your cholesterol. Finally, you were started on a baby Aspirin that you will take daily going forward; and Plavix that you will take daily until at minimum 3 months but ideally would take for the entirety of a year. Given the response your body had to the IVIG, the use of aspirin is allowed, but you should continue have your platelets monitored regularly with your foreign languages professor, and you should continue to monitor yourself for similar bruising to what you had when you were first diagnosed with ITP. Home Care: * Take your medications exactly as directed. Don't skip doses. * Remember that recovery after a heart attack takes time. Plan to rest for at lease 4-8 weeks while you recover. Then return to normal activity when your doctor says it's okay. * Ask your doctor about joining a heart rehabilitation program. * Tell your doctor if you are feeling depressed. Feelings of sadness are common after a heart attack, but it is important that you speak to someone if you are feeling overwhelmed by these feelings. * If you are having chest pain, call 911 for an ambulance. Do NOT drive yourself to the hospital. * Ask your family members to learn CPR. * Learn to take your own blood pressure and pulse. Keep a record of your results. Ask your doctor when you should seek emergency medical attention. He or she will tell you which blood pressure reading is dangerous. Lifestyle Changes: * Maintain a healthy weight. Get help to lose any extra pounds. * Cut back on salt. * Limit canned, dried, packaged, and fast foods. * Don't add salt to your food. * Season foods with herbs instead of salt when you cook. * Limit fatty foods. * Ask your doctor about having your lipid levels checked regularly. * Build up your activity according to your doctor's recommendation. * Ask your doctor when it's okay to resume sexual activity. * Tell your doctor about any erectile dysfunction (ED) medication you are taking. Some ED medications are not safe if you take certain heart medications. * Try to manage stress. Follow Up: It is important for you to keep your follow up appointments with your medical provider. ACTIVITY RECOMMENDATIONS: Excess manipulation of the wrist should be avoided for the next 24-48 hours. * No lifting over 2 pounds (approximately a 1/2 gallon of milk) with the utilized arm for 24 hours. * No strenuous activity such as bowling or tennis for 3 days. * Keep the site of the procedure covered with a bandage for 24 hours. *You may shower the day after the procedure. Do not take a tub bath or submerge the puncture site in water for the next 3 days. *Do not operate any motorized equipment for 3 days. SPECIAL CARE INSTRUCTIONS: The site may be slightly bruised and sore following your procedure. Should any of the following occur, contact the Dr. who performed your procedure. 1. Redness/inflammation, swelling, chills, or fever, or colored drainage at procedure site within 3-7 days after your procedure. 2. Coldness, discoloration, ongoing numbness, severe pain, or swelling. Expect mild tingling of hand and tenderness at the puncture site for up to three days. If this persists beyond three days, or other symptoms develop, notify the Dr. who performed your procedure. BLEEDING: If the procedure site on your wrist begins to bleed, do not panic 1. Place 1 or 2 fingers firmly just slightly above the insertion site to stop the bleeding. You may be able to feel your pulse as you hold pressure. 2. Lift your finger after 5 minutes to see if the bleeding has stopped. 3. Once the bleeding has stopped, gently wipe the wrist area clean with a bandage. * If the bleeding from your wrist does not stop after 10 minutes, or if there is a large amount of bleeding or spurting, call 911 (do not drive yourself to the hospital). SKIN IRRITATION: * You may experience some redness and/or swelling in the area where radiation was administered. If any skin irritation occurs, please contact your family physician. FOLLOW UP VISIT: Keep any scheduled doctor appointments. Pending Studies at Discharge: No Stand-Alone Forms: My [employer], Smoking Cessation Medications and DC Order Prescriptions: New atorvastatin 40 mg Tablet 80 mg PO HS 30 Days Qty: 60 RF: 0 metoprolol succinate 50 mg Tablet Extended Release 24 Hr 50 mg PO QAM 30 Days Qty: 30 RF: 0 clopidogrel 75 mg Tablet 75 mg PO QAM 30 Days Qty: 30 RF: 0 aspirin [Ecotrin Low Strength] 81 mg Tablet,Delayed Release (Dr/Ec) 81 mg PO QAM Qty: 0 RF: 0 lisinopril [Zestril] 5 mg Tablet 5 mg PO QAM 30 Days Qty: 30 RF: 0 nitroglycerin [Nitrostat] 0.4 mg Tablet, Sublingual 0.4 mg sublingual UD PRN (Reason: chest pain) Qty: 30 RF: 0 Continued tamsulosin [Flomax] 0.4 mg Capsule 0.4 mg PO QPM RF: 0 finasteride 5 mg Tablet 5 mg PO QPM RF: 0 acetaminophen [Tylenol Extra Strength] 500 mg Tablet 1,000 mg PO Q6H PRN (Reason: Pain) RF: 0 Discontinued amlodipine 5 mg Tablet 5 mg PO QAM RF: 0 atenolol 50 mg Tablet 50 mg PO QAM RF: 0 immun glob [id number]-oadg-IgA 0-50 10 gram Recon Soln 0 g IV USEASDIRECTD RF: 0 Discharge Orders: Discharge Order (Routine); Ordered 02/25/19 Ordered By: Alfred Pan/Other Patient Handouts: CAD, Immune Thrombocytopenia Purpura Dc, Nitroglycerin Sublingual tablet Admission Data Admit Date/Time: 02/23/19 12:02 Attending Provider: Coy Bella Admit Provider: Umair Rudd Primary Care Provider: Vani Mauro Other Providers: Je Sorenson ; Umair Rudd Other Interventions: Discharge Summary Assessment (RN) Last Done: 02/25/19 10:51 DC Date/Time DO NOT enter until pt leaves facility: 02/25/19 12:45 Supervising Physician Co-Signing Physician Notes Resident Physician Supervision Note: I was present with PGY1 Dr. Alfred Bal during the history and exam on the day of discharge. I discussed the case with the resident and agree with the findings and plan as documented in the note. Any exceptions or clarifications are listed here: none. 78yo male with h/o HTN, ITP, prior lymphoma, rheumatoid arthritis - presented with chest pain. Ultimately found to have NSTEMi; peak troponin 17. Treated in customary fashion with aspirin, heparin infusion, statin, beta kathi, etc. Ultimately underwent heart catheterization revealing diffuse CAD but culprit vessel was left circumflex occlusion. Underwent TONIA by Dr Hines to the left circumflex artery. Post-cath did well. Started on plavix for TONIA. Has mild LAD disease and RCA disease with latter showing collateral circulation suggesting chronic occlusion. Echo with preserved EF. Tele with 1 brief run of nonsustained V-tach. In addition to plavix he will continue on statin, LILIANA, aspirin, and beta kathi. Discharge exam: gen - NAD neck - no JVD heart - RRR, s1 s2, no murmur/rub/gallop lungs - CTA b/l abd - soft NT ND BS+ ext - no edema skin - no hematoma right wrist f/u with [facility] within 1-2 weeks; cardiac rehab to be recommended chronic ITP - stable while here with platelet count >200 during the stay Documented By: Coy Bella MD Resident Activity Tracking Resident Involvement: Resident Care Provided Care Provided: Adult Hospital Medicine
[2019-02-25] MEDS: ASPIRIN 81 MG ECTAB PO SCH (08:41)
[2019-02-25] MEDS: CLOPIDOGREL BISULFATE 75 MG TAB PO SCH (08:41)
[2019-02-25] MEDS: lisinopriL 5 MG TAB PO SCH (08:41)
--- NOTE | 2019-02-25 08:53 | Cardiology Progress Note ---
Date of Service February 25, 2019 Assessment & Plan (1) Non-ST elevation (NSTEMI) myocardial infarction: (2) CAD (coronary artery disease): (3) Mitral regurgitation: (4) Hypertension: (5) Paroxysmal ventricular tachycardia: (6) Chronic ITP (idiopathic thrombocytopenia): ASSESSMENT/PLAN: 1. Acute NSTEMI: Angina resolved following circumflex PCI. Continue aspirin 81 mg daily indefinitely. Continue Plavix, preferably for 1 year but for at least 3 months if his platelet count will allow with his ITP history. Platelets have remained stable during this hospitalization. Continue beta-kathi. Start LILIANA- inhibitor. High-intensity statin therapy. Cardiac rehab on discharge, which was discussed with him and he is agreeable. 2. CAD s/p Cx PCI: No further angina. He also has residual mid RCA 100%, with [id number] collaterals. He also had nonobstructive CAD involving the LAD. Recommend aspirin 81 mg daily indefinitely given PCI. Dual anti-platelet therapy for 1 year if possible. High-intensity statin therapy. Continue beta- kathi. 3. Mitral regurgitation: Non severe. Can monitor over time. Asymptomatic. 4. Hypertension: Blood pressure well controlled today. Continue beta-kathi and LILIANA-inhibitor. Calcium channel kathi has been discontinued. 5. Chronic ITP: Platelets remains stable and acceptable. Dr. Mcgovern of Hematology/Oncology was personally called prior to cardiac catheterization on 02/23/2019 to ensure that Mr. Tamayo could safely receive anti-platelet therapy. Dr. Mcgovern was agreeable that he could receive daily aspirin and even dual anti- platelet therapy if he should receive PCI. He stated that Hematology/Oncology will closely follow platelet levels and treat as appropriate. 6. Paroxysmal ventricular tachycardia: Nonsustained ventricular tachycardia noted on telemetry within the first 24 hours, but none since. Continue beta- kathi. 7. Disposition: Okay to be discharged from a cardiology standpoint later today. Continue medications as above on discharge with addition of p.r.n. nitroglycerin for chest pain. Follow-up in the cardiology office with me or PA in 1-2 weeks (appointment made). Cardiac rehab will be arranged as an outpatient. Patient care discussed with primary hospitalist Service, Dr. Bal. Subjective He feels very well today. He denies any further angina. He denies shortness of breath, syncope, near-syncope, palpitations, bleeding, or edema. There has not been any issue with his right radial cath site. He ambulated in the hallway yesterday without any symptoms. Review of systems: As above. Physical Exam Physical Exam: Gen.: No acute distress. Alert and oriented. HEENT: Anicteric sclera. Neck: No JVD. Cardiac: No ventricular heave. Regular. Normal S1-S2. No murmurs, rubs, or gallops. Pulmonary: Clear to auscultation bilaterally without wheezes, rales, or rhonchi. Abdomen: Soft, nontender, nondistended, with normoactive bowel sounds. No bruits noted. Extremities: 2+ right radial pulse. Right radial cath site is clean, dry, and intact without erythema or discharge. No edema or cyanosis. Psychiatric: Affect appears appropriate. Results & Data Vital Signs (Past 12 Hours) Vital Signs Temp Pulse Pulse Resp BP Pulse Ox 02/25/19 07:00 37.0 C 82 18 117/76 96 02/25/19 03:36 36.4 C L 57 L 16 130/75 97 02/25/19 00:34 48 L 02/24/19 23:48 36.4 C L 58 L 20 140/76 94 Laboratory Results Laboratory Results - last 24 hr 02/24/19 02/25/19 02/25/19 12:51 05:48 05:48 WBC 7.49 RBC 4.61 L Hgb 14.2 Hct 41.9 L MCV 90.9 MCH 30.8 MCHC 33.9 RDW Std Deviation 44.3 RDW Coeff of Katarina 13.4 Plt Count 244 MPV 10.1 Immature Gran % (Auto) 0.4 Neut % (Auto) 63.0 Lymph % (Auto) 19.9 [place] % (Auto) 13.0 Eos % (Auto) 2.9 Baso % (Auto) 0.8 Immature Gran # (Auto) 0.03 H Neut # (Auto) 4.72 Lymph # (Auto) 1.49 [place] # (Auto) 0.97 H Eos # (Auto) 0.22 Baso # (Auto) 0.06 APTT 25.1 PTT Ratio 0.9 Sodium Potassium Chloride Carbon Dioxide Anion Gap BUN Creatinine Est Cr Clr Drug Dosing Est GFR ( Amer) Est GFR (Non-Af Amer) BUN/Creatinine Ratio Glucose Calcium Total Bilirubin AST ALT Alkaline Phosphatase Troponin I 11.400 H* Total Protein Albumin Globulin Albumin/Globulin Ratio 02/25/19 05:48 WBC RBC Hgb Hct MCV MCH MCHC RDW Std Deviation RDW Coeff of Katarina Plt Count MPV Immature Gran % (Auto) Neut % (Auto) Lymph % (Auto) [place] % (Auto) Eos % (Auto) Baso % (Auto) Immature Gran # (Auto) Neut # (Auto) Lymph # (Auto) [place] # (Auto) Eos # (Auto) Baso # (Auto) APTT PTT Ratio Sodium 139 Potassium 4.0 Chloride 109 H Carbon Dioxide 23 Anion Gap 7.0 BUN 25 H Creatinine 1.09 Est Cr Clr Drug Dosing 49.6 Est GFR ( Amer) 74.4 Est GFR (Non-Af Amer) 64.2 BUN/Creatinine Ratio 23.3 H Glucose 91 Calcium 8.8 Total Bilirubin 1.2 H AST 58 H ALT 65 Alkaline Phosphatase 41 L Troponin I Total Protein 7.9 Albumin 2.9 L Globulin 5.0 H Albumin/Globulin Ratio 0.6 L Diagnostic Findings Telemetry personally reviewed: No further ventricular tachycardia. There was 1 episode of nonsustained atrial tachycardia this morning, otherwise sinus rhythm. Medications Administered Current Inpatient Medications Acetaminophen (Tylenol) 650 mg PO Q4H PRN PRN Reason: Pain or Fever Stop: 03/25/19 13:19 Al Hydrox/Mg Hydrox/Simethicone (Maalox) 15 ml PO Q4H PRN PRN Reason: Dyspepsia Stop: 03/25/19 13:19 Aspirin (E[facility]rin Ectab) [facility] [place]: 03/26/19 09:44 Last Admin: 02/25/19 08:41 Dose: 81 mg Documented by: Atorvastatin Calcium (Lipitor) 80 mg PO [facility] Stop: 03/26/19 20:59 Last Admin: 02/24/19 21:05 Dose: 80 mg Documented by: Clopidogrel Bisulfate (Plavix) 75 mg [facility] [place] Stop: 03/26/19 08:59 Last Admin: 02/25/19 08:41 Dose: 75 mg Documented by: Finasteride (Proscar) 5 mg PO QPM [facility] Stop: 03/25/19 20:59 Last Admin: 02/24/19 21:05 Dose: 5 mg Documented by: Lisinopril (Zestril) 5 mg PO QAM [facility] Stop: 03/26/19 09:44 Last Admin: 02/25/19 08:41 Dose: 5 mg Documented by: Magnesium Hydroxide (Milk Of Magnesia) 30 ml PO Q12H PRN PRN Reason: Constipation Stop: 03/25/19 13:19 Metoprolol Succinate (Toprol Xl) 50 mg [facility] [place] Stop: 03/27/19 08:59 Last Admin: 02/25/19 08:41 Dose: 50 mg Documented by: Morphine Sulfate (Morphine Sulfate) 2 mg IV Q30M PRN PRN Reason: Chest Pain Stop: 03/09/19 13:19 Nitroglycerin (Nitrostat) 0.4 mg SL UD PRN PRN Reason: Chest Pain Stop: 03/25/19 13:19 Ondansetron HCl (Zofran) 4 mg IV Q6H PRN PRN Reason: Nausea Stop: 03/25/19 13:19 Polyethylene Glycol (Miralax Powder Packet) 17 gm PO DAILY PRN PRN Reason: Constipation Stop: 03/25/19 13:19 Tamsulosin HCl (Flomax) 0.4 mg PO QPM [facility] Stop: 03/25/19 20:59 Last Admin: 02/24/19 21:05 Dose: 0.4 mg Documented by: PG Care Time/CCT Total # of Minutes Spent Total Time Spent with Patient: Total time spent is greater than 50% in coordination of care (as documented) at patient's floor/unit and/or counseling patient:
[2019-02-25] MEDS ORDERED: METOPROLOL SUCC 50MG EXT REL TAB PO SCH (09:00)
[2019-02-25 11:55] VITALS: BP 151/84; PULSE 65; TEMP 97.5; O2SAT 97
--- NOTE | 2019-02-25 21:41 | Billing Data ---
Date of Service February 25, 2019 Coding Level of Care Code D/C Day Management >30 mins
== END 2019-02-25 12:45 | disposition home or self-care (01) | DRG 247 ==
LOC: ED 09:38 → 2S 12:02 → SUATTDRO 12:02 → 2S 12:53

== ENCOUNTER 2019-02-25 16:53 | Inpatient (IN) ==
[2019-02-25] MEDS ORDERED: NITROGLYCERIN SL 0.4 MG/TAB TAB SL STA (17:16)
[2019-02-25] MEDS ORDERED: NITROGLYCERIN 2% OINTMENT 30GM TUBE EXT STA (17:16)
--- NOTE | 2019-02-25 17:49 | XRay Report ---
SINGLE VIEW CHEST CLINICAL HISTORY: Atypical chest pain. FINDINGS: An AP, portable, upright chest radiograph is compared to study dated 02/21/2019 and correla lia with chest CT dated 09/23/2018. The examination is degraded by portable technique and patient rota tion. The heart is mildly enlarged noting atherosclerotic calcification of the thoracic aorta. The pu lmonary vasculature is noncongested. Chronic interstitial thickening is similar to previous. No airsp yenny consolidation or large pleural effusion is identified. No pneumothorax is seen. The skeletal stru ctures are osteopenic. The bony thorax is grossly intact. IMPRESSION: Mild cardiomegaly with no active disease in the chest. ACT 112: Negative or not required by law. Electronically signed by: Valentino Navarro M.D. 02/25/2019 5:48 PM
[2019-02-25 18:03] LABS: Albumin Level 3.3 gm/dl (3.4-5.0); BUN Creatinine Ratio 24.1 (10-20); Creatinine Clr Calc Pharmacy 47.9 ml/min; Est GFR (African American) 64.3; Est GFR (Non-African American) 55.5; Potassium 3.7 mmol/L (3.5-5.1)
[2019-02-25 18:11] LABS: Albumin Globulin Ratio 0.7 (0.9-2); Bilirubin,Total 1.1 mg/dl (0.2-1); Globulin 4.9 gm/dl (2.5-4.0); Total Protein 8.2 gm/dl (6.4-8.2); Troponin I 6.51 ng/ml (0-0.045)
[2019-02-25 18:27] LABS: Hematocrit (blood only) 41.6 % (42-52); Hemoglobin 14.4 g/dL (14.0-18.0); Mean Corpuscular Hemoglobin 31.3 pg (25-34); Mean Corpuscular Hgb Conc 34.6 g/dL (32-36); Mean Corpuscular Volume 90.4 fL (80-100); RDW Coefficient of Variation 13.3 % (11.5-14.5); RDW Standard Deviation 43.7 fL (36.4-46.3); White Blood Count 8.47 K/uL (4.8-10.8)
[2019-02-25 18:28] LABS: Basophils # (auto) 0.04 K/uL (0-0.2); Basophils % (auto) 0.5 %; Eosinophils # (auto) 0.18 K/uL (0-0.5); Eosinophils % (auto) 2.1 %; Immature Granulocytes # (auto) 0.04 K/uL (0.00-0.02); Immature Granulocytes % (auto) 0.5 %; Lymphocytes # (auto) 1.66 K/uL (1.2-3.4); Lymphocytes % (auto) 19.6 %; Monocytes # (auto) 0.91 K/uL (0.11-0.59); Monocytes % (auto) 10.7 %; Neutrophils # (auto) 5.64 K/uL (1.4-6.5); Neutrophils % (auto) 66.6 %
--- NOTE | 2019-02-25 19:15 | Emergency Department Note ---
Entered by Daryl Watson acting as a scribe for Eduardo Cisse MD ED Provider Note CHIEF COMPLAINT: Chest tightness HISTORY OF PRESENT ILLNESS: The patient is a 78 year old male who presents to the Emergency Room with compla ints of constant chest tightness beginning a hour ago. The patient states he was evaluated on Sunday in the ED for similar symptoms and admitted to the hospital for a blocked artery. He reports he had a stent placed and then was discharged around 5 hours ago. The patient notes he went home and took a shower and sat down. He states he was reading all of the discharge paperwork when he developed tightness in his right arm that was more severe than Sunday. The patient reports his symptoms then radiated to his chest and had similar tightness as before, but it was not as severe. He notes his symptoms then radiated to his jaw. The patient states he took two nitroglycerin and did not have relief. He reports his tightness was a 2/10 in severity, and now it is a 1.5/10 in severity. The patient notes he is not completely back to normal. He states he feels fine other than the tightness. Pt denies LOC, headache, fevers, chills, diaphoresis, visual changes, neck pain, breathing difficulties, nausea, vomiting, abdominal pain, back pain, melena, hematochezia, urinary symptoms, leg swelling, numbness, weakness, lymphadenopathy, rash, or other complaints. REVIEW OF SYSTEMS: See HPI for pertinent positives and negatives. A total of ten systems were reviewed and were otherwise negative. PMHx/PSHx: CAD, GERD, BPH, Stent placement SOCIAL HISTORY: Patient lives at home. PHYSICAL EXAM: GENERAL: Awake, alert, well-appearing, in no distress HENT: Normocephalic, atraumatic. Oropharynx unremarkable. EYES: PERRL. Normal conjunctiva. Sclera non-icteric. NECK: Inspection normal. Non-tender. Supple. No nuchal rigidity. FROM. No masses. RESPIRATORY: Clear to auscultation. No wheezes. No rales. Normal respiratory effort. CARDIAC: Borderline bradycardic rate. Normal rhythm. No murmurs. No rubs. Extremities warm and well perfused. Pulses equal. No JVD. Right wrist catheterization access appears normal. GI: Soft, non-distended. No tenderness to palpation. No rebound or guarding. No masses. RECTAL: Deferred. MUSCULOSKELETAL: Atraumatic. Chest examination reveals no tenderness. The back is symmetrical on inspection without obvious abnormality. There is no CVA tenderness to palpation. No joint edema. LOWER EXTREMITIES: Calves are equal size bilaterally and non-tender. No edema. No discoloration. NEURO: Normal sensorium. No sensory or motor deficits noted. SKIN: No rash or jaundice noted. EMERGENCY DEPARTMENT COURSE: 1711: The patient was evaluated in room C10, and a complete history and physical examination were performed. 1714: Past medical/hospitalist records reviewed. The patient had a 100% RCA with a PCI of mid circumflex. 1809: Upon reevaluation, the patient is resting comfortably and has had complete resolution of his symptoms. I discussed laboratory and radiographic results with him. He verbalized agreement of the treatment plan. The patient will be evaluated for further management and care. 1825: I reviewed the patient's case with Dr. Watkins, Cardiology. He recommends a hospitalist evaluation. 1850: I discussed the patient's case with Dr. Batista, [facility] Hospitalist. The patient will be evaluated by the shift leader physician, Dr. Stacy. MEDICAL DECISION MAKING: C10 Prior records/ancillary studies reviewed. Patient had significant two-vessel coronary disease and received mid circumflex PCI. Triage Nursing notes reviewed and agree them. Additional history obtained from the family. The patient's history was concerning for discomfort similar to his index angina. Differential diagnosis: Etiologies such as cardiac ischemia, Jessica syndrome, aortic dissection, pulmonary embolism, pneumonia, pneumothorax, musculoskeletal, infections, pericarditis, myocarditis, esophageal rupture, gastrointestinal, as well as others were entertained. Physical examination: As above. ER treatment provided: Sublingual nitroglycerin x1 Nitropaste On reassessment the patient felt better. Diagnostic interpretation by me: The electrocardiogram was negative for pathologic change. The labs revealed an unremarkable CBC and chemistry panel. Troponin elevated but lower than that during hospitalization. Imaging studies: Chest xray, negative for acute process. Consultation: Consultation was placed with cardiology. Admission was recommended for further management and testing. A consultation was placed with the hospitalist. The case was discussed and diagnostics were reviewed. The patient was evaluated in the ER for further treatment. IMPRESSION: Elevated troponin I level Bilateral arm pain Bilateral jaw pain CAD PLAN: Admitted The scribe's documentation has been prepared under my direction and personally reviewed by me in its entirety. I confirm that the note above accurately reflects all work, treatment, procedures, and medical decision making performed by me. 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 Pt denied any abnormal bleeding or bruising at heme appt 04/05/18 Surgical History History of adenoidectomy History of appendectomy History of colonoscopy History of cystoscopy STONE REMOVAL History of lithotripsy History of tonsillectomy History of tooth extraction History of total hip arthroplasty RT/LEFT Family History Other Hypertension Kidney disease Social History Preferred Language: [place] Communication Ability: Effective Mind Reader Required: No Beliefs That Will Affect Care: None Current Living Situation: Spouse Feels Safe at Home: Yes Safety Concerns: Feels Safe At This Time Smoking Status: Never smoker Second Hand Exposure: Yes ( A CHILD) ; Hx Alcohol Use: Yes Alcohol type: beer, wine, hard liquor and other Hx Substance Use: No Results & Data Vital Signs Vital Signs - 24 hr 02/25/19 16:58 02/25/19 17:16 02/25/19 17:20 Temperature 36.4 C L Temperature Source Oral Pulse Rate 70 63 67 Pulse Rate from SpO2 Sensor 64 67 Pulse Rhythm Regular Pulse Strength Normal Respiratory Rate 20 13 18 Respiratory Effort / Characteristics Non-Labored Spontaneous Respiratory Depth Normal Respiratory Pattern Regular Blood Pressure 137/73 148/77 H Blood Pressure Mean 94 89 Blood Pressure Position Sitting Pulse Oximetry 98 96 97 Oxygen Delivery Method Room Air Sepsis Recent Fever Within 48 Hours No Sepsis New/Unexplained Change in Mental Status No Sepsis Action Taken by Nursing No Action Required 02/25/19 17:30 02/25/19 17:31 02/25/19 18:00 Temperature Temperature Source Pulse Rate 80 78 64 Pulse Rate from SpO2 Sensor 79 76 67 Pulse Rhythm Pulse Strength Respiratory Rate 21 16 13 Respiratory Effort / Characteristics Respiratory Depth Respiratory Pattern Blood Pressure 117/76 117/72 Blood Pressure Mean 84 76 Blood Pressure Position Pulse Oximetry 93 94 Oxygen Delivery Method Sepsis Recent Fever Within 48 Hours Sepsis New/Unexplained Change in Mental Status Sepsis Action Taken by Nursing 02/25/19 18:01 02/25/19 18:30 02/25/19 18:31 Temperature Temperature Source Pulse Rate 66 61 63 Pulse Rate from SpO2 Sensor 67 61 64 Pulse Rhythm Pulse Strength Respiratory Rate 24 23 15 Respiratory Effort / Characteristics Respiratory Depth Respiratory Pattern Blood Pressure 116/76 Blood Pressure Mean 107 Blood Pressure Position Pulse Oximetry 96 97 97 Oxygen Delivery Method Sepsis Recent Fever Within 48 Hours Sepsis New/Unexplained Change in Mental Status Sepsis Action Taken by Nursing 02/25/19 19:00 02/25/19 19:30 02/25/19 19:31 Temperature Temperature Source Pulse Rate 64 63 64 Pulse Rate from SpO2 Sensor 62 65 Pulse Rhythm Pulse Strength Respiratory Rate 17 21 17 Respiratory Effort / Characteristics Respiratory Depth Respiratory Pattern Blood Pressure 151/80 H 139/84 Blood Pressure Mean 87 106 Blood Pressure Position Pulse Oximetry 96 96 Oxygen Delivery Method Sepsis Recent Fever Within 48 Hours Sepsis New/Unexplained Change in Mental Status Sepsis Action Taken by Long-Term Medications Current Medication List: was personally reviewed by me Laboratory Data Attestation: I reviewed the patient's lab results. Result diagrams: 02/25/19 17:35 02/25/19 17:35 Lab Results 02/25/19 02/25/19 02/25/19 Range/Units 17:35 17:35 17:35 WBC 8.47 (4.8-10.8) K/uL RBC 4.60 L (4.7-6.1) M/uL Hgb 14.4 (14.0-18.0) g/dL Hct 41.6 L (42-52) % MCV 90.4 (80-100) fL MCH 31.3 (25-34) pg MCHC 34.6 (32-36) g/dL RDW Std Deviation 43.7 (36.4-46.3) fL RDW Coeff of Katarina 13.3 (11.5-14.5) % Plt Count (130-400) K/uL MPV Not Reportable Immature Gran % (Auto) 0.5 % Neut % (Auto) 66.6 % Lymph % (Auto) 19.6 % [place] % (Auto) 10.7 % Eos % (Auto) 2.1 % Baso % (Auto) 0.5 % Immature Gran # (Auto) 0.04 H (0.00-0.02) K/uL Neut # (Auto) 5.64 (1.4-6.5) K/uL Lymph # (Auto) 1.66 (1.2-3.4) K/uL [place] # (Auto) 0.91 H (0.11-0.59) K/uL Eos # (Auto) 0.18 (0-0.5) K/uL Baso # (Auto) 0.04 (0-0.2) K/uL Plt Count ,Citrate 281 (130-400) K/uL Sodium 136 (136-145) mmol/L Potassium 3.7 (3.5-5.1) mmol/L Chloride 106 (98-107) mmol/L Carbon Dioxide 22 (21-32) mmol/L Anion Gap 8.0 (3-11) BUN 30 H (7-18) mg/dl Creatinine 1.23 (0.6-1.4) mg/dl Est Cr Clr Drug Dosing 47.9 ml/min Est GFR ( Amer) 64.3 Est GFR (Non-Af Amer) 55.5 BUN/Creatinine Ratio 24.1 H (10-20) Glucose 95 (70-99) mg/dl Calcium 9.0 (8.5-10.1) mg/dl Magnesium (1.8-2.4) mg/dl Total Bilirubin 1.1 H (0.2-1) mg/dl AST 55 H (15-37) U/L ALT 74 (12-78) U/L Alkaline Phosphatase 45 (45-117) U/L Troponin I 6.510 H* (0-0.045) ng/ml Total Protein 8.2 (6.4-8.2) gm/dl Albumin 3.3 L (3.4-5.0) gm/dl Globulin 4.9 H (2.5-4.0) gm/dl Albumin/Globulin Ratio 0.7 L (0.9-2) Lipase 280 (73-393) U/L 02/25/19 Range/Units 17:41 WBC (4.8-10.8) K/uL RBC (4.7-6.1) M/uL Hgb (14.0-18.0) g/dL Hct (42-52) % MCV (80-100) fL MCH (25-34) pg MCHC (32-36) g/dL RDW Std Deviation (36.4-46.3) fL RDW Coeff of Katarina (11.5-14.5) % Plt Count (130-400) K/uL MPV Immature Gran % (Auto) % Neut % (Auto) % Lymph % (Auto) % [place] % (Auto) % Eos % (Auto) % Baso % (Auto) % Immature Gran # (Auto) (0.00-0.02) K/uL Neut # (Auto) (1.4-6.5) K/uL Lymph # (Auto) (1.2-3.4) K/uL [place] # (Auto) (0.11-0.59) K/uL Eos # (Auto) (0-0.5) K/uL Baso # (Auto) (0-0.2) K/uL Plt Count ,Citrate (130-400) K/uL Sodium (136-145) mmol/L Potassium (3.5-5.1) mmol/L Chloride (98-107) mmol/L Carbon Dioxide (21-32) mmol/L Anion Gap (3-11) BUN (7-18) mg/dl Creatinine (0.6-1.4) mg/dl Est Cr Clr Drug Dosing ml/min Est GFR ( Amer) Est GFR (Non-Af Amer) BUN/Creatinine Ratio (10-20) Glucose (70-99) mg/dl Calcium (8.5-10.1) mg/dl Magnesium 2.2 (1.8-2.4) mg/dl Total Bilirubin (0.2-1) mg/dl AST (15-37) U/L ALT (12-78) U/L Alkaline Phosphatase (45-117) U/L Troponin I (0-0.045) ng/ml Total Protein (6.4-8.2) gm/dl Albumin (3.4-5.0) gm/dl Globulin (2.5-4.0) gm/dl Albumin/Globulin Ratio (0.9-2) Lipase (73-393) U/L Administered Medications Atorvastatin Calcium (Lipitor) 80 mg PO HS ERICK Stop: 03/27/19 21:59 Last Admin: 02/25/19 21:46 Dose: 80 mg Documented by: [id number] Finasteride (Proscar) 5 mg PO QPM ERICK Stop: 03/27/19 20:59 Last Admin: 02/25/19 21:46 Dose: 5 mg Documented by: [id number] Tamsulosin HCl (Flomax) 0.4 mg PO QPM ERICK Stop: 03/27/19 20:59 Last Admin: 02/25/19 21:46 Dose: 0.4 mg Documented by: [id number] Discontinued Medications Nitroglycerin (Nitro-Bid 2%) 0.5 inch EXT NOW STA Stop: 02/25/19 17:17 Last Admin: 02/25/19 17:24 Dose: 0.5 inch Documented by: [id number] Nitroglycerin (Nitrostat) 0.4 mg SL NOW STA Stop: 02/25/19 17:17 Last Admin: 02/25/19 17:24 Dose: 0.4 mg Documented by: [id number] Potassium Chloride (Klor-Con M20) 40 meq PO NOW STA Stop: 02/25/19 21:07 Last Admin: 02/25/19 21:46 Dose: 40 meq Documented by: [id number] Imaging Data Radiologist's Impression: Radiology results as stated below per my review and the radiologist's interpretation: SINGLE VIEW CHEST CLINICAL HISTORY: Atypical chest pain. FINDINGS: An AP, portable, upright chest radiograph is compared to study dated 02/21/2019 and correlated with chest CT dated 09/23/2018. The examination is degraded by portable technique and patient rotation. The heart is mildly enlarged noting atherosclerotic calcification of the thoracic aorta. The pu lmonary vasculature is noncongested. Chronic interstitial thickening is similar to previous. No airspace consolidation or large pleural effusion is identified. No pneumothorax is seen. The skeletal structures are osteopenic. The bony thorax is grossly intact. IMPRESSION: Mild cardiomegaly with no active disease in the chest. ACT 112: Negative or not required by law. Electronically signed by: Valentino Navarro M.D. 02/25/2019 5:48 PM ECG Data Attestation: I personally reviewed and interpreted this ECG as follows: Indication: + chest pain Rate (beats per minute): 58 Rhythm: sinus bradycardia ECG Intervals/blocks: + Normal QRS ECG [place]: + Normal ECG ST segments: + T-wave inversions (Inferior); no ST elevation ECG Findings: + Q waves (Inferior) and + LVH Comparison ECG Date: from (02/24/19) Change: no significant change Additional Comments: REPEAT EKG IN THE SAME HOSPITALIST VISIT INTERPRETED BY ME: Normal Sinus Rhythm with a rate of 61. LVH. Inferior q-waves. No ST elevation or ST depression. Normal axis and QRS. No change from previous. Blood Pressure Blood Pressure Findings: Normal blood pressure Blood Pressure Disposition: did not require urgent referral Discharge Plan Visit Data *Final* Discharge Date/Time: 02/25/19 20:28 Chief Complaint: Chest Pain Stated Complaint: CHEST PAIN, CARDIAC HX, TOOK TWO NITRO ED Provider: Eduardo Cisse Discharge Problem: Elevated troponin I level, CAD (coronary artery disease), Bilateral arm pain, Jaw pain Patient Disposition: Admitted As Inpatient Discharge Instructions Interventions: ED Discharge Assessment Last Done: 02/25/19 20:28 Discharge Problem: CAD (coronary artery disease) Qualifiers: Coronary Disease-Associated Artery/Lesion type: unspecified vessel or lesion type [place] vs. transplanted heart: [place] heart Associated angina: with unspecified angina Qualified Code(s): I25.119 - Atherosclerotic heart disease of [place] coronary artery with unspecified angina pectoris The scribe's documentation has been prepared under my direction and personally reviewed by me in its entirety. I confirm that the note above accurately reflects all work, treatment, procedures, and medical decision making performed by me.
--- NOTE | 2019-02-25 20:06 | History & Physical Report ---
Date of Service February 25, 2019 Assessment & Plan (1) Chest pain: 78-year-old male was admitted on 25 February 2019 for chest pain. Of note, he was discharged earlier today after an admission from -[facility] for an acute NSTEMI s/p cath and single TONIA on De. Chest pain, CAD: Acute recurrence of chest pain soon after his discharge. Presently near totally resolved, ? related to nitroglycerin. Denies any concurrent symptoms to include difficulty breathing, abdominal pain, N/V, or d iaphoresis. - In ED, afebrile, not tachycardic or tachypneic, blood pressure rather well- controlled, with good room SpO2. Hemoglobin 14. 1735 drawn TnI was 6.5 (still trending down from hospitalization). EKG was NSR 61 without acute changes from De comparison. pCXR read as mild cardiomegaly without other acute findings. - In ED, treated with nitroglycerin. [facility] who [facility] recommended serial monitoring. - Will monitor symptoms as well as continue serial troponins and EKGs. Cardiology re-consulted. He remains on Plavix, beta-kathi, LILIANA inhibitor, s tatin. Will optimize potassium and magnesium. Place on small amount of NS + KCl IVF. Elevated creatinine: Admit Cr 1.23, BUN 30. No noted history of renal disease. May benefit from outpatient recheck. Ongoing medical issues: - Hypertension: Continue meds as above. As reference, [facility] TTE noted EF 55-60% with various mild findings (see full report). - Chronic ITP, lymphoma: Followed by Dr. Mcgovern ([facility]). Discharge platelets 244. Will monitor. - Paroxysmal ventricular tachycardia: History of same. - BPH: Continue home finasteride and tamsulosin. Code status: Full code. Diet: Cardiac. DVT prophy: Hold chemical prophy. SCDs and ambulation. PT/OT: Deferred. Disbo: Admit to telemetry for observation. (2) CAD (coronary artery disease): (3) Elevated serum creatinine: (4) Hypertension: (5) Chronic ITP (idiopathic thrombocytopenia): (6) Paroxysmal ventricular tachycardia: (7) BPH (benign prostatic hyperplasia): History of Present Illness Primary Care Provider: Vani Mauro 78-year-old male presents for evaluation for chest discomfort. As background, patient complained of chest pressure/tightness with radiation into his arms back on 22Dec. He ultimately underwent a cardiac cath with placement of a single TONIA. His symptoms improved and resolved over the subsequent days and he was discharged earlier today. Patient says that he ended up going home, took a shower, and was sitting down reading through some paperwork when he had return of some discomfort in his right arm. He initially thought it might be acid indigestion, however the discomfort then spread to his bilateral arms and up to his jaw. He took a single nitroglycerin with no relief and then decided to present to the ED for further evaluation. He says his discomfort was minimal, perhaps 2/10 in severity. He is not sure that the nitroglycerin helped. He denies any concurrent symptoms to include diaphoresis, nausea or vomiting, difficulty breathing, or focal weakness. He does say that this felt near identical to his symptoms a few days ago. Here in the ED on H&P, patient says that his symptoms are virtually resolved. He denies any other interval changes and tolerated his dinner well. - Past medical history includes hypertension, NSTEMI, CAD, mitral regurg, chronic ITP and lymphoma, paroxysmal ventricular tachycardia, kidney stones, rheumatoid arthritis, BPH, GERD. - Past surgical history includes adenoidectomy, appendectomy, lithotripsy, tonsillectomy, bilateral total hip arthroplasty. - Social history includes never smoked. Does drink alcohol. Lives at home with family. Allergies Allergy/AdvReac Type Severity Reaction Status Date / Time Bactrim Allergy Severe HIVES, Verified 07/27/17 10:29 INTERFERES WITH IMMUNE SYSTEM Cipro Allergy Severe MUSCLE Verified 07/27/17 10:29 PROBLEMS ciprofloxacin Allergy Severe MUSCLE Verified 02/25/19 17:51 PROBLEMS morphine Allergy Severe HALLUCINATI Verified 02/25/19 17:51 ONS sulfamethoxazole Allergy Severe HIVES, Verified 02/25/19 17:51 INTERFERES WITH IMMUNE SYSTEM trimethoprim Allergy Severe HIVES, Verified 02/25/19 17:51 INTERFERES WITH IMMUNE SYSTEM Home Medications Home Medications Medication Instructions Recorded Confirmed Type finasteride 5 mg PO QPM 04/15/18 02/25/19 History tamsulosin [Flomax] 0.4 mg PO QPM 04/15/18 02/25/19 History acetaminophen [Tylenol Extra 1,000 mg PO Q6H PRN 02/23/19 02/25/19 History Strength] aspirin [Ecotrin Low Strength] 81 mg PO QAM #0 tab 02/25/19 02/25/19 Rx atorvastatin 80 mg PO HS 30 Days #60 tab 02/25/19 02/25/19 Rx clopidogrel 75 mg PO QAM 30 Days #30 tab 02/25/19 02/25/19 Rx lisinopril [Zestril] 5 mg PO QAM 30 Days #30 tab 02/25/19 02/25/19 Rx metoprolol succinate 50 mg PO QAM 30 Days #30 tab 02/25/19 02/25/19 Rx nitroglycerin [Nitrostat] 0.4 mg SUBLINGUAL UD PRN #30 tab 02/25/19 02/25/19 Rx Past Med/Surg History Medical History BPH (benign prostatic hyperplasia) Chronic ITP (idiopathic thrombocytopenia) GERD (gastroesophageal reflux disease) MILD Hypertension Kidney stones 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 Pt denied any abnormal bleeding or bruising at heme appt 04/05/18 Surgical History History of adenoidectomy History of appendectomy History of colonoscopy History of cystoscopy STONE REMOVAL History of lithotripsy History of tonsillectomy History of tooth extraction History of total hip arthroplasty RT/LEFT Family History Other Hypertension Kidney disease Social History Preferred Language: Turkish Communication Ability: Effective Motor Transport Inspector Required: No Beliefs That Will Affect Care: None Current Living Situation: Spouse Feels Safe at Home: Yes Safety Concerns: Feels Safe At This Time Smoking Status: Never smoker Second Hand Exposure: Yes ( A CHILD) ; Hx Alcohol Use: Yes Alcohol type: beer, wine, hard liquor and other Hx Substance Use: No Review of Systems Review of Systems: Constitutional: Denies fevers, chills, focal weakness Eyes: Denies any visual loss or diplopia ENT: Denies any ear/nose/throat pain or difficulty speaking or swallowing Respiratory: Denies any dyspnea, cough, hemoptysis Cardiovascular: Positive chest pressure. No edema. Gastrointestinal: Denies any abdominal pain, nausea/vomiting/diarrhea Musculoskeletal: Denies any acute extremity pains, myalgias, or focal weakness Skin: Denies any known acute rashes or lesions Neuro: Denies any headache, acute focal weakness or numbness, or difficulties with speech or swallow. Physical Exam Physical Exam: GENERAL: Awake, alert, well-appearing, in no acute distress. HENT: Normocephalic, atraumatic. Oropharynx unremarkable. EYES: Normal conjunctiva. Sclera non-icteric. NECK: Inspection normal. Supple and full ROM. No nuchal rigidity. CARDIAC: +S1S2 RRR, no murmurs. RESPIRATORY: Clear to auscultation. No wheezes or rales. Normal respiratory effort. GI: +BS, soft, non-distended. No tenderness to palpation. No rebound or guarding. EXTREMITIES: No pedal edema or calf tenderness. Moving all extremities naturally and easily. His right radial cath site appears to be healing well. NEURO: No gross neuro deficits. Results & Data Vital Signs (Past 12 Hours) Vital Signs Temp Pulse Resp BP Pulse Ox 02/25/19 19:31 64 17 96 02/25/19 19:30 63 21 139/84 96 02/25/19 19:00 64 17 151/80 H 02/25/19 18:31 63 15 97 02/25/19 18:30 61 23 116/76 97 02/25/19 18:01 66 24 96 02/25/19 18:00 64 13 117/72 02/25/19 17:31 78 16 94 02/25/19 17:30 80 21 117/76 93 02/25/19 17:20 67 18 97 02/25/19 17:16 63 13 148/77 H 96 02/25/19 16:58 36.4 C L 70 20 137/73 98 Laboratory Results 02/25/19 02/25/19 02/25/19 Range/Units 17:41 17:35 17:35 WBC (4.8-10.8) K/uL RBC (4.7-6.1) M/uL Hgb (14.0-18.0) g/dL Hct (42-52) % MCV (80-100) fL MCH (25-34) pg MCHC (32-36) g/dL RDW Std Deviation (36.4-46.3) fL RDW Coeff of [place] (11.5-14.5) % Plt Count (130-400) K/uL MPV Immature Gran % (Auto) % Neut % (Auto) % Lymph % (Auto) % [place] % (Auto) % Eos % (Auto) % Baso % (Auto) % Immature Gran # (Auto) (0.00-0.02) K/uL Neut # (Auto) (1.4-6.5) K/uL Lymph # (Auto) (1.2-3.4) K/uL [place] # (Auto) (0.11-0.59) K/uL Eos # (Auto) (0-0.5) K/uL Baso # (Auto) (0-0.2) K/uL Plt Count ,Citrate 281 (130-400) K/uL Sodium 136 (136-145) mmol/L Potassium 3.7 (3.5-5.1) mmol/L Chloride 106 (98-107) mmol/L Carbon Dioxide 22 (21-32) mmol/L Anion Gap 8.0 (3-11) BUN 30 H (7-18) mg/dl Creatinine 1.23 (0.6-1.4) mg/dl Est Cr Clr Drug Dosing 47.9 ml/min Est GFR ( Amer) 64.3 Est GFR (Non-Af Amer) 55.5 BUN/Creatinine Ratio 24.1 H (10-20) Glucose 95 (70-99) mg/dl Calcium 9.0 (8.5-10.1) mg/dl Magnesium Pending Total Bilirubin 1.1 H (0.2-1) mg/dl AST 55 H (15-37) U/L ALT 74 (12-78) U/L Alkaline Phosphatase 45 (45-117) U/L Troponin I 6.510 H* (0-0.045) ng/ml Total Protein 8.2 (6.4-8.2) gm/dl Albumin 3.3 L (3.4-5.0) gm/dl Globulin 4.9 H (2.5-4.0) gm/dl Albumin/Globulin Ratio 0.7 L (0.9-2) Lipase 280 (73-393) U/L 02/25/19 Range/Units 17:35 WBC 8.47 (4.8-10.8) K/uL RBC 4.60 L (4.7-6.1) M/uL Hgb 14.4 (14.0-18.0) g/dL Hct 41.6 L (42-52) % MCV 90.4 (80-100) fL MCH 31.3 (25-34) pg MCHC 34.6 (32-36) g/dL RDW Std Deviation 43.7 (36.4-46.3) fL RDW Coeff of Katarina 13.3 (11.5-14.5) % Plt Count (130-400) K/uL MPV Not Reportable Immature Gran % (Auto) 0.5 % Neut % (Auto) 66.6 % Lymph % (Auto) 19.6 % [place] % (Auto) 10.7 % Eos % (Auto) 2.1 % Baso % (Auto) 0.5 % Immature Gran # (Auto) 0.04 H (0.00-0.02) K/uL Neut # (Auto) 5.64 (1.4-6.5) K/uL Lymph # (Auto) 1.66 (1.2-3.4) K/uL [place] # (Auto) 0.91 H (0.11-0.59) K/uL Eos # (Auto) 0.18 (0-0.5) K/uL Baso # (Auto) 0.04 (0-0.2) K/uL Plt Count ,Citrate (130-400) K/uL Sodium (136-145) mmol/L Potassium (3.5-5.1) mmol/L Chloride (98-107) mmol/L Carbon Dioxide (21-32) mmol/L Anion Gap (3-11) BUN (7-18) mg/dl Creatinine (0.6-1.4) mg/dl Est Cr Clr Drug Dosing ml/min Est GFR ( Amer) Est GFR (Non-Af Amer) BUN/Creatinine Ratio (10-20) Glucose (70-99) mg/dl Calcium (8.5-10.1) mg/dl Magnesium Total Bilirubin (0.2-1) mg/dl AST (15-37) U/L ALT (12-78) U/L Alkaline Phosphatase (45-117) U/L Troponin I (0-0.045) ng/ml Total Protein (6.4-8.2) gm/dl Albumin (3.4-5.0) gm/dl Globulin (2.5-4.0) gm/dl Albumin/Globulin Ratio (0.9-2) Lipase (73-393) U/L Medications Administered Discontinued Medications Nitroglycerin (Nitro-Bid 2%) 0.5 inch EXT NOW STA Stop: 02/25/19 17:17 Last Admin: 02/25/19 17:24 Dose: 0.5 inch Documented by: [id number] Nitroglycerin (Nitrostat) 0.4 mg SL NOW STA Stop: 02/25/19 17:17 Last Admin: 02/25/19 17:24 Dose: 0.4 mg Documented by: [id number] Code Status & VTE Plan Code Status Full code VTE Prophylaxis Plan VTE Prophylaxis will be ordered: Yes Supervising Physician Co-Signing Physician Notes Attending addendum: I have physically seen this patient, have supervised the medical residents activities, and agree with the H&P unless as otherwise noted. Assessment and Plan: Recurrent chest pain/CAD/status post acute NSTEMI and cardiac catheterization with single TONIA on February 23- The patient will be admitted to telemetry for serial cardiac enzymes, serial EKG's, cardiac rhythm monitoring and a 2-D echocardiogram with Dopplers. Troponin in the ED elevated 6.5, but still reduced from previous hospitalization. Continue metoprolol succinate, lisinopril, clopidogrel, aspirin and atorvastatin. Conservative treatment per cardiology consult by the ED with Dr. Watkins. Low threshold to begin patient on heparin drip if symptoms become recurrent or there are changes in EKG, rhythm monitoring or further elevations in troponin. Chronic ITP/lymphoma- Heparin will be begun only if necessary. Remainder of orders and notations as noted Resident Activity Tracking Resident Involvement: Resident Care Provided Care Provided: Adult Hospital Medicine (1) CAD (coronary artery disease) Associated angina: with unspecified angina Coronary Disease-Associated Artery/Lesion type: unspecified vessel or lesion type [place] vs. transplanted heart: [place] heart Qualified Code(s): I25.119 - Atherosclerotic heart disease of [place] coronary artery with unspecified angina pectoris (2) Chest pain Chest pain type: unspecified Qualified Code(s): R07.9 - Chest pain, unspecified
[2019-02-25] MEDS ORDERED: NITROGLYCERIN SL 0.4 MG/TAB TAB SL PRN (20:58)
[2019-02-25] MEDS ORDERED: POTASSIUM CHLORIDE 20 MEQ TABCR PO STA (21:06)
--- NOTE | 2019-02-25 21:35 | Billing Data ---
Date of Service February 25, 2019 Coding Level of Care Code D/C Day Management >30 mins
[2019-02-25] MEDS: TAMSULOSIN HCL 0.4 MG CAP PO SCH (21:46)
[2019-02-25] MEDS: ATORVASTATIN 40 MG TAB PO SCH (21:46)
[2019-02-25] MEDS: FINASTERIDE 5 MG TAB PO SCH (21:46)
[2019-02-26 06:31] LABS: BUN Creatinine Ratio 24.1 (10-20); Calcium 8.9 mg/dl (8.5-10.1); Creatinine Clr Calc Pharmacy 45.8 ml/min; Est GFR (African American) 67.6; Est GFR (Non-African American) 58.3; Magnesium 2.3 mg/dl (1.8-2.4); Potassium 4.5 mmol/L (3.5-5.1)
[2019-02-26 06:32] LABS: Troponin I 10.8 ng/ml (0-0.045)
[2019-02-26 06:42] LABS: Basophils # (auto) 0.05 K/uL (0-0.2); Basophils % (auto) 0.5 %; Eosinophils # (auto) 0.16 K/uL (0-0.5); Eosinophils % (auto) 1.7 %; Hematocrit (blood only) 40.8 % (42-52); Hemoglobin 14.1 g/dL (14.0-18.0); Immature Granulocytes # (auto) 0.02 K/uL (0.00-0.02); Immature Granulocytes % (auto) 0.2 %; Lymphocytes # (auto) 1.82 K/uL (1.2-3.4); Lymphocytes % (auto) 19.8 %; Mean Corpuscular Hemoglobin 31.9 pg (25-34); Mean Corpuscular Hgb Conc 34.6 g/dL (32-36); Mean Corpuscular Volume 92.3 fL (80-100); Mean Platelet Volume 9.5 fL (7.4-10.4); Monocytes # (auto) 0.95 K/uL (0.11-0.59); Monocytes % (auto) 10.3 %; Neutrophils # (auto) 6.21 K/uL (1.4-6.5); Neutrophils % (auto) 67.5 %; Platelet Count 283 K/uL (130-400); Platelet Estimate Normal (Normal); RDW Coefficient of Variation 13.4 % (11.5-14.5); RDW Standard Deviation 44.3 fL (36.4-46.3); Red Blood Count 4.42 M/uL (4.7-6.1); White Blood Count 9.21 K/uL (4.8-10.8)
[2019-02-26] MEDS: ASPIRIN 81 MG ECTAB PO SCH (08:33)
[2019-02-26] MEDS: CLOPIDOGREL BISULFATE 75 MG TAB PO SCH (08:33)
[2019-02-26] MEDS: METOPROLOL SUCC 50MG EXT REL TAB PO SCH (08:33)
[2019-02-26] MEDS ORDERED: lisinopriL 5 MG TAB PO SCH (09:00)
[2019-02-26] MEDS: ACETAMINOPHEN 500 MG TAB PO PRN ×2 (09:00→21:16)
--- NOTE | 2019-02-26 09:29 | Hospitalist Progress Note ---
Date of Service February 26, 2019 Assessment & Plan (1) Chest pain: 78-year-old male was admitted on 25 February 2019 for chest pain. Of note, he was discharged earlier today after an admission from [facility] for an acute NSTEMI s/p cath and single TONIA on De. Chest pain, CAD: - initial troponin 6.5 on presentation to ED; trended up to 10.8 this AM - Acute recurrence of chest pain soon after his discharge. Presently near totally resolved, un-related to nitroglycerin. Denies any concurrent symptoms to include difficulty breathing, abdominal pain, N/V, or diaphoresis. - Will monitor symptoms, and maintain on tele - Cardiology consulted: appreciate recommendations; ordering repeat echo for wall motion abnormalities - Consider re-catheterization if return of symptoms or if progression of EKG changes - continue ASA, Plavix, Metoprolol, and atorvastatin - discontinue lisinopril in favor of amlodipine for anti-anginal benefit Elevated creatinine: - Admit Cr 1.23, BUN 30. No noted history of renal disease. May benefit from outpatient recheck. Hypertension: - Continue meds as above. As reference, [facility] TTE noted EF 55-60% with various mild findings (see full report). Chronic ITP, lymphoma: - Followed by Dr. Mcgovern ([facility]). Discharge platelets 244. Will monitor. Paroxysmal ventricular tachycardia: - History of same. BPH: - Continue home finasteride and tamsulosin. Code status: Full code Diet: Cardiac (2) CAD (coronary artery disease): (3) Elevated serum creatinine: (4) Hypertension: (5) Chronic ITP (idiopathic thrombocytopenia): (6) Paroxysmal ventricular tachycardia: (7) BPH (benign prostatic hyperplasia): Supervising Physician Co-Signing Physician Notes Resident Physician Supervision Note: I interviewed and examined the patient. Discussed with Dr. Alfred Bal and agree with findings and plan as documented in the note. Any exceptions or clarifications are listed here: during my individual bedside rounds the patient stated he had had recurrent b/l shoulder discomfort this am about 0930. The di scomfort improved w/ tylenol but never fully resolved. He is now 1/10 on pain scale since the AM. These symptoms were similar to his presenting symptoms when he had the NSTEMI. NO substernal cp. NO dyspnea. NO GI symptoms. I ordered EKG right after my visit -- unchanged from EKG this morning however V5/V6 now with flattening of the T waves. Troponin also repeated this afternoon - 11.1; was 10.8 this am. VSS exam - gen - very comfortable appearing, a/o x 3 neck - no JVD heart - RRR, s1 s2, no murmur chest - no reproducible chest wall pain musculo - no reproducible shoulder pain b/l lungs - CTA b/l abd - soft NT ND BS+ ext - no edema, pulses 2+ b/l labs - trop 11.1 10.8 early this am Cr 1.1 A/P: 1. recent NSTEMI requiring hospitalization 02/23 to 02/25; culprit vessel left circumflex s/p TONIA. 2. CKD stage 3 (baseline CrCL 40s). 3. repeat NSTEMI as troponins since re-admission have risen again since the previous admission; subtle EKG changes V5/V6; concern for small vessel disease leading to recurrent event; if this was instent thrombosis clinical picture likely would be much different. Due to repeat NSTEMI will start heparin drip now. Cardiology has seen today; changed LILIANA to low-dose CCB (amlodipine). Cont BB, statin, asa, plavix. Nitropaste added for residual shoulder discomfort which seems to be anginal equivalent. If shoulder discomfort worsens despite the above then would call "heart alert" tonight Otherwise, plan for NPO after MN tonight; cath in am. Care d/w cardiology multiple times today. Documented By: Coy Bella MD Subjective Patient has not had any continued discomfort in his chest since being admitted; main worry was that this feeling was so similar to the discomfort he had over the weekend leading to his stent placement, the discomfort in his shoulders the patient describes as feeling more like he had just finished swimming for hours than it was a true pain, felt it in his shoulders but it did not move anywhere in his body. Review of Systems Constitutional: + body aches (b/l deltoid); no fever and no chills Eyes: no diplopia and no spots in vision Respiratory: no cough, no dyspnea and no wheezing Cardiovascular: no chest pain, no dyspnea, no orthopnea, no palpitations, no lightheadedness and no edema Gastrointestinal: no abdominal pain, no nausea and no vomiting Neurologic: no localized weakness and no generalized weakness Physical Exam Constitutional: WD/WN, vitals as above Eyes: PERRL, conjunctivae normal, anicteric sclerae ENMT: external ear and nose normal, oropharynx normal Respiratory: normal respiratory effort, lungs clear to auscultation Cardiovascular: Rate/Rhythm: regular rate and regular rhythm Heart Sounds: no gallop, no murmur and no cardiac rub Vessels: no JVD Extremities: no edema and no varicosities Gastrointestinal (Abdomen): normal bowel sounds, soft, nontender, no hepatosplenomegaly Musculoskeletal: Shoulder: no deformity, no skin erythema, normal ROM of shoulder, no crepitation with shoulder ROM and no joint line tenderness Ankle: no joint line tenderness Skin: no rashes, warm and dry Results & Data Vital Signs (Past 12 Hours) Vital Signs Temp Pulse Pulse Resp BP Pulse Ox 02/26/19 07:35 36.9 C 71 16 130/79 97 02/26/19 07:00 61 02/26/19 03:46 36.6 C 67 18 124/67 97 02/26/19 02:16 57 L 02/25/19 22:48 36.6 C 60 18 135/71 96 02/25/19 22:31 59 L Laboratory Results 02/26/19 02/26/19 02/26/19 Range/Units 05:43 05:43 05:43 WBC 9.21 (4.8-10.8) K/uL RBC 4.42 L (4.7-6.1) M/uL Hgb 14.1 (14.0-18.0) g/dL Hct 40.8 L (42-52) % MCV 92.3 (80-100) fL MCH 31.9 (25-34) pg MCHC 34.6 (32-36) g/dL RDW Std Deviation 44.3 (36.4-46.3) fL RDW Coeff of Katarina 13.4 (11.5-14.5) % Plt Count 283 (130-400) K/uL MPV 9.5 Immature Gran % (Auto) 0.2 % Neut % (Auto) 67.5 % Lymph % (Auto) 19.8 % [place] % (Auto) 10.3 % Eos % (Auto) 1.7 % Baso % (Auto) 0.5 % Immature Gran # (Auto) 0.02 (0.00-0.02) K/uL Neut # (Auto) 6.21 (1.4-6.5) K/uL Lymph # (Auto) 1.82 (1.2-3.4) K/uL [place] # (Auto) 0.95 H (0.11-0.59) K/uL Eos # (Auto) 0.16 (0-0.5) K/uL Baso # (Auto) 0.05 (0-0.2) K/uL Platelet Estimate Normal (Normal) Plt Count ,Citrate (130-400) K/uL Sodium 137 (136-145) mmol/L Potassium 4.5 D (3.5-5.1) mmol/L Chloride 110 H (98-107) mmol/L Carbon Dioxide 22 (21-32) mmol/L Anion Gap 5.0 (3-11) BUN 28 H (7-18) mg/dl Creatinine 1.18 (0.6-1.4) mg/dl Est Cr Clr Drug Dosing 45.8 ml/min Est GFR ( Amer) 67.6 Est GFR (Non-Af Amer) 58.3 BUN/Creatinine Ratio 24.1 H (10-20) Glucose 98 (70-99) mg/dl Calcium 8.9 (8.5-10.1) mg/dl Magnesium 2.3 (1.8-2.4) mg/dl Total Bilirubin (0.2-1) mg/dl AST (15-37) U/L ALT (12-78) U/L Alkaline Phosphatase (45-117) U/L Troponin I Cancelled 10.800 H* (0-0.045) ng/ml Total Protein (6.4-8.2) gm/dl Albumin (3.4-5.0) gm/dl Globulin (2.5-4.0) gm/dl Albumin/Globulin Ratio (0.9-2) Lipase (73-393) U/L 02/25/19 02/25/19 02/25/19 Range/Units 17:41 17:35 17:35 WBC (4.8-10.8) K/uL RBC (4.7-6.1) M/uL Hgb (14.0-18.0) g/dL Hct (42-52) % MCV (80-100) fL MCH (25-34) pg MCHC (32-36) g/dL RDW Std Deviation (36.4-46.3) fL RDW Coeff of Katarina (11.5-14.5) % Plt Count (130-400) K/uL MPV Immature Gran % (Auto) % Neut % (Auto) % Lymph % (Auto) % [place] % (Auto) % Eos % (Auto) % Baso % (Auto) % Immature Gran # (Auto) (0.00-0.02) K/uL Neut # (Auto) (1.4-6.5) K/uL Lymph # (Auto) (1.2-3.4) K/uL [place]gle # (Auto) (0.11-0.59) K/uL Eos # (Auto) (0-0.5) K/uL Baso # (Auto) (0-0.2) K/uL Platelet Estimate (Normal) Plt Count ,Citrate 281 (130-400) K/uL Sodium 136 (136-145) mmol/L Potassium 3.7 (3.5-5.1) mmol/L Chloride 106 (98-107) mmol/L Carbon Dioxide 22 (21-32) mmol/L Anion Gap 8.0 (3-11) BUN 30 H (7-18) mg/dl Creatinine 1.23 (0.6-1.4) mg/dl Est Cr Clr Drug Dosing 47.9 ml/min Est GFR ( Amer) 64.3 Est GFR (Non-Af Amer) 55.5 BUN/Creatinine Ratio 24.1 H (10-20) Glucose 95 (70-99) mg/dl Calcium 9.0 (8.5-10.1) mg/dl Magnesium 2.2 (1.8-2.4) mg/dl Total Bilirubin 1.1 H (0.2-1) mg/dl AST 55 H (15-37) U/L ALT 74 (12-78) U/L Alkaline Phosphatase 45 (45-117) U/L Troponin I 6.510 H* (0-0.045) ng/ml Total Protein 8.2 (6.4-8.2) gm/dl Albumin 3.3 L (3.4-5.0) gm/dl Globulin 4.9 H (2.5-4.0) gm/dl Albumin/Globulin Ratio 0.7 L (0.9-2) Lipase 280 (73-393) U/L 02/25/19 Range/Units 17:35 WBC 8.47 (4.8-10.8) K/uL RBC 4.60 L (4.7-6.1) M/uL Hgb 14.4 (14.0-18.0) g/dL Hct 41.6 L (42-52) % MCV 90.4 (80-100) fL MCH 31.3 (25-34) pg MCHC 34.6 (32-36) g/dL RDW Std Deviation 43.7 (36.4-46.3) fL RDW Coeff of Katarina 13.3 (11.5-14.5) % Plt Count (130-400) K/uL MPV Not Reportable Immature Gran % (Auto) 0.5 % Neut % (Auto) 66.6 % Lymph % (Auto) 19.6 % [place]gle % (Auto) 10.7 % Eos % (Auto) 2.1 % Baso % (Auto) 0.5 % Immature Gran # (Auto) 0.04 H (0.00-0.02) K/uL Neut # (Auto) 5.64 (1.4-6.5) K/uL Lymph # (Auto) 1.66 (1.2-3.4) K/uL [place]gle # (Auto) 0.91 H (0.11-0.59) K/uL Eos # (Auto) 0.18 (0-0.5) K/uL Baso # (Auto) 0.04 (0-0.2) K/uL Platelet Estimate (Normal) Plt Count ,Citrate (130-400) K/uL Sodium (136-145) mmol/L Potassium (3.5-5.1) mmol/L Chloride (98-107) mmol/L Carbon Dioxide (21-32) mmol/L Anion Gap (3-11) BUN (7-18) mg/dl Creatinine (0.6-1.4) mg/dl Est Cr Clr Drug Dosing ml/min Est GFR ( Amer) Est GFR (Non-Af Amer) BUN/Creatinine Ratio (10-20) Glucose (70-99) mg/dl Calcium (8.5-10.1) mg/dl Magnesium (1.8-2.4) mg/dl Total Bilirubin (0.2-1) mg/dl AST (15-37) U/L ALT (12-78) U/L Alkaline Phosphatase (45-117) U/L Troponin I (0-0.045) ng/ml Total Protein (6.4-8.2) gm/dl Albumin (3.4-5.0) gm/dl Globulin (2.5-4.0) gm/dl Albumin/Globulin Ratio (0.9-2) Lipase (73-393) U/L Medications Administered Current Inpatient Medications Acetaminophen (Tylenol) 1,000 mg PO Q6H PRN PRN Reason: Pain Stop: 03/27/19 20:57 Last Admin: 02/26/19 09:00 Dose: 1,000 mg Documented by: Aspirin (Ecotrin Ectab) 81 mg PO [facility] Stop: 03/28/19 08:59 Last Admin: 02/26/19 08:33 Dose: 81 mg Documented by: Atorvastatin Calcium (Lipitor) 80 mg PO [facility] Stop: 03/27/19 21:59 Last Admin: 02/25/19 21:46 Dose: 80 mg Documented by: Clopidogrel Bisulfate (Plavix) 75 mg PO [facility] Stop: 03/28/19 08:59 Last Admin: 02/26/19 08:33 Dose: 75 mg Documented by: Finasteride (Proscar) 5 mg PO QPM [facility] Stop: 03/27/19 20:59 Last Admin: 02/25/19 21:46 Dose: 5 mg Documented by: Lisinopril (Zestril) 5 mg PO [facility] Stop: 03/28/19 08:59 Last Admin: 02/26/19 08:33 Dose: 5 mg Documented by: Metoprolol Succinate (Toprol Xl) 50 mg PO [facility] Stop: 03/28/19 08:59 Last Admin: 02/26/19 08:33 Dose: 50 mg Documented by: Nitroglycerin (Nitrostat) 0.4 mg SL UD PRN PRN Reason: chest pain Stop: 03/27/19 20:57 Tamsulosin HCl (Flomax) 0.4 mg PO QPM [facility] Stop: 03/27/19 20:59 Last Admin: 02/25/19 21:46 Dose: 0.4 mg Documented by: Resident Activity Tracking Resident Involvement: Resident Care Provided Care Provided: Adult Hospital Medicine (1) CAD (coronary artery disease) Associated angina: with unspecified angina Coronary Disease-Associated Artery/Lesion type: unspecified vessel or lesion type [place] vs. transplanted heart: [place] heart Qualified Code(s): I25.119 - Atherosclerotic heart disease of [place] coronary artery with unspecified angina pectoris (2) Chest pain Chest pain type: unspecified Qualified Code(s): R07.9 - Chest pain, unspecified
--- NOTE | 2019-02-26 11:35 | Cardiology Consultation ---
Date of Consultation He was home approximately 3 hours post discharge and noticed chest tightness across his chest with heaviness in his shoulder and arms similar to what he had upon admission February 24 but not quite as severe. Given his recent procedure he was concerned and return to the emergency room. His first troponin is actually lower than it was prior to his discharge. He remained relatively pain-free overnight this morning at 9:00 in the morning he had some worsening anginal symptoms. He notes shoulder discomfort and even now his right arm muscles just feel mildly weak. He denies a coughing or bleeding or bruising. He denies any lightheadedness or dizziness. He has not walked in the hallway. He denies any palpitations or fluttering. He denies any orthopnea or lower extremity edema. His right wrist is warm to touch and he has no discomfort his previous catheterization site. He looks well this morning. The rest of a complete review of systems otherwise negative February 26, 2019 Assessment & Plan (1) Chest pain: 78-year-old male was admitted on 25 February 2019 for chest pain. Of note, he was discharged earlier today after an admission from -[facility] for an acute NSTEMI s/p cath and single TONIA on [facility]. Chest pain, CAD: - initial troponin 6.5 on presentation to ED; trended up to 10.8 this AM - Acute recurrence of chest pain soon after his discharge. -I would recommend a limited echocardiogram to assess for new wall motion abnormalities compared to echo conducted on 02/23 - continue ASA, Plavix, Metoprolol, and atorvastatin. I would stop the lisinopril and switch him back to amlodipine 2-1/2 mg daily as an antianginal. Based on his blood pressure this can be uptitrated. The question is why is he having discomfort status post his recent procedure. We know that the right coronary artery is totally occluded in the mid to distal portion and he has left to right collaterals. If you look at his EKG he is completed an inferior infarct with Q waves. I do not think this represents acute stent thrombosis as he should look significantly worse and have worsening symptoms not improving symptoms. It is possible with his catheterization that there is a small branch that was lost during the procedure or with his known left to right collaterals that we have impacted those collaterals and now he is having worsening angina as the collaterals are supplying the distal RCA territory. As long as he remains stable I would try to adjust his medical regimen. If he were to become unstable or continue to have progressive anginal symptoms we may need to repeat his catheterization to make sure the stents are patent. Elevated creatinine: - Admit Cr 1.23, BUN 30. No noted history of renal disease. May benefit from outpatient recheck. Hypertension: - Continue meds as above. As reference, 22Dec TTE noted EF 55-60% with various mild findings (see full report). Chronic ITP, lymphoma: - Followed by Dr. Mcgovern ([facility]). Discharge platelets 244. Will monitor. His platelet count today remains stable on dual antiplatelet therapy This was discussed with the primary service in detail (2) CAD (coronary artery disease): (3) Elevated serum creatinine: (4) Hypertension: (5) Chronic ITP (idiopathic thrombocytopenia): History of Present Illness Attending Physician: [place] Allergies Allergy/AdvReac Type Severity Reaction Status Date / Time Bactrim Allergy Severe HIVES, Verified 07/27/17 10:29 INTERFERES WITH IMMUNE SYSTEM Cipro Allergy Severe MUSCLE Verified 07/27/17 10:29 PROBLEMS ciprofloxacin Allergy Severe MUSCLE Verified 02/25/19 17:51 PROBLEMS morphine Allergy Severe HALLUCINATI Verified 02/25/19 17:51 ONS sulfamethoxazole Allergy Severe HIVES, Verified 02/25/19 17:51 INTERFERES WITH IMMUNE SYSTEM trimethoprim Allergy Severe HIVES, Verified 02/25/19 17:51 INTERFERES WITH IMMUNE SYSTEM Home Medications Home Medications Medication Instructions Recorded Confirmed Type finasteride 5 mg PO QPM 04/15/18 02/25/19 History tamsulosin [Flomax] 0.4 mg PO QPM 04/15/18 02/25/19 History acetaminophen [Tylenol Extra 1,000 mg PO Q6H PRN 02/23/19 02/25/19 History Strength] aspirin [Ecotrin Low Strength] 81 mg PO QAM #0 tab 02/25/19 02/25/19 Rx atorvastatin 80 mg PO HS 30 Days #60 tab 02/25/19 02/25/19 Rx clopidogrel 75 mg PO QAM 30 Days #30 tab 02/25/19 02/25/19 Rx lisinopril [Zestril] 5 mg PO QAM 30 Days #30 tab 02/25/19 02/25/19 Rx metoprolol succinate 50 mg PO QAM 30 Days #30 tab 02/25/19 02/25/19 Rx nitroglycerin [Nitrostat] 0.4 mg SUBLINGUAL UD PRN #30 tab 02/25/19 02/25/19 Rx Patient History Medical History BPH (benign prostatic hyperplasia) Chronic ITP (idiopathic thrombocytopenia) GERD (gastroesophageal reflux disease) MILD Hypertension Kidney stones 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 Beliefs That Will Affect Care: None Current Living Situation: Spouse Feels Safe at Home: Yes Safety Concerns: Feels Safe At This Time Smoking Status: Never smoker Second Hand Exposure: Yes ( A CHILD) ; Hx Alcohol Use: Yes Alcohol type: beer, wine, hard liquor and other Hx Substance Use: No Results & Data Vital Signs (Past 12 Hours) Vital Signs Temp Pulse Pulse Resp BP Pulse Ox 02/26/19 07:35 36.9 C 71 16 130/79 97 02/26/19 07:00 61 02/26/19 03:46 36.6 C 67 18 124/67 97 02/26/19 02:16 57 L he is awake alert and oriented x3 he is in no acute distress HEENT: 2+ carotid upstrokes no evidence of carotid bruits jugular is pressure appeared normal sclerae anicteric hearing is normal Lungs: Clear to auscultation bilaterally no rales rhonchi or wheezing Heart: Regular rate and rhythm no appreciable murmurs rubs or gallops Abdomen: Soft and tenderness and a positive bowel sounds Extremities no clubbing cyanosis or edema brisk right radial pulse his right hand was warm to touch Psychiatric his affect appeared appropriate (1) Chest pain Chest pain type: unspecified Qualified Code(s): R07.9 - Chest pain, unspecified (2) CAD (coronary artery disease) Associated angina: with unspecified angina Coronary Disease-Associated Artery/Lesion type: unspecified vessel or lesion type [place] vs. transplanted heart: [place] heart Qualified Code(s): I25.119 - Atherosclerotic heart disease of [place] coronary artery with unspecified angina pectoris
[2019-02-26] MEDS: AMLODIPINE BESYLATE 5 MG TAB PO SCH (12:41)
[2019-02-26] MEDS: NITROGLYCERIN 2% OINTMENT 30GM TUBE EXT SCH ×2 (15:39→21:09)
[2019-02-26] MEDS ORDERED: Heparin IV Low Dose WITH Bolus IV STA (16:11)
[2019-02-26] MEDS ORDERED: HEPARIN SODIUM/DEXTROSE 25,000 UNITS/500 ML BAG IV SCH (16:15)
[2019-02-26] MEDS ORDERED: HEPARIN IV BOLUS 4,000 UNITS in SYRINGE 0 ML IV ONE (16:45)
--- NOTE | 2019-02-26 19:05 | Billing Data ---
Date of Service February 26, 2019 Coding Level of Care Code 83557 Subseq Obs Care Lvl 3
[2019-02-26] MEDS: FINASTERIDE 5 MG TAB PO SCH (20:13)
[2019-02-26] MEDS: ATORVASTATIN 40 MG TAB PO SCH (20:13)
[2019-02-26] MEDS: TAMSULOSIN HCL 0.4 MG CAP PO SCH (20:13)
[2019-02-27 00:03] LABS: Partial Thromboplastin Time 27.6 Seconds (21.0-31.0)
[2019-02-27] MEDS ORDERED: HEPARIN IV BOLUS 4,500 UNITS in SYRINGE 0 ML IV ONE (00:09)
[2019-02-27] MEDS: NITROGLYCERIN 2% OINTMENT 30GM TUBE EXT SCH ×2 (03:31→11:23)
[2019-02-27 06:56] LABS: BUN Creatinine Ratio 20.9 (10-20); Calcium 8.6 mg/dl (8.5-10.1); Creatinine Clr Calc Pharmacy 54.6 ml/min; Est GFR (African American) 76.1; Est GFR (Non-African American) 65.7
[2019-02-27 07:01] LABS: Partial Thromboplastin Ratio 4.7
[2019-02-27 07:05] LABS: Hematocrit (blood only) 39.2 % (42-52); Hemoglobin 13.4 g/dL (14.0-18.0); Mean Corpuscular Hemoglobin 31.5 pg (25-34); Mean Corpuscular Hgb Conc 34.2 g/dL (32-36); Mean Corpuscular Volume 92.2 fL (80-100); Partial Thromboplastin Time 128.2 Seconds (21.0-31.0); RDW Coefficient of Variation 13.7 % (11.5-14.5); RDW Standard Deviation 44.8 fL (36.4-46.3); Red Blood Count 4.25 M/uL (4.7-6.1); White Blood Count 9.56 K/uL (4.8-10.8)
[2019-02-27 07:13] LABS: Basophils # (auto) 0.06 K/uL (0-0.2); Basophils % (auto) 0.6 %; Eosinophils # (auto) 0.29 K/uL (0-0.5); Immature Granulocytes # (auto) 0.04 K/uL (0.00-0.02); Immature Granulocytes % (auto) 0.4 %; Lymphocytes # (auto) 1.89 K/uL (1.2-3.4); Lymphocytes % (auto) 19.8 %; Monocytes # (auto) 1.28 K/uL (0.11-0.59); Monocytes % (auto) 13.4 %; Neutrophils % (auto) 62.8 %
[2019-02-27] MEDS: AMLODIPINE BESYLATE 5 MG TAB PO SCH (08:02)
[2019-02-27] MEDS: CLOPIDOGREL BISULFATE 75 MG TAB PO SCH (08:03)
[2019-02-27] MEDS: ASPIRIN 81 MG ECTAB PO SCH (08:03)
[2019-02-27] MEDS: METOPROLOL SUCC 50MG EXT REL TAB PO SCH (08:03)
[2019-02-27] MEDS ORDERED: MIDAZOLAM HCL 1 MG/ML 2ML VIAL ONE ×4 (08:43→10:42)
[2019-02-27] MEDS ORDERED: NiCARDipine HCL INJ 2.5 MG/ML 10 ML AMP ONE (08:43)
[2019-02-27] MEDS ORDERED: fentaNYL citrate 100 MCG/2 ML VIAL ONE ×3 (08:43→10:42)
[2019-02-27] MEDS ORDERED: HEPARIN (PORCINE) 1000 UNIT/ML 10 ML (CATH LAB USE ONLY) ONE (08:43)
[2019-02-27] MEDS ORDERED: NITROGLYCERIN/D5W 100MCG/ML 20ML SYR ONE (08:44)
--- NOTE | 2019-02-27 09:17 | Hospitalist Progress Note ---
Date of Service February 27, 2019 Assessment & Plan (1) Chest pain: 78-year-old male was admitted on 25 February 2019 for chest pain following stent placement into L circumflex on 02/23 Chest pain, CAD: - initial troponin 6.5 on presentation to ED; trended up to 15.6 overnight - Acute recurrence of chest pain soon after his discharge. Presently near totally resolved, un-related to nitroglycerin. Denies any concurrent symptoms to include difficulty breathing, abdominal pain, N/V, or diaphoresis. - Cardiology consulted: appreciate recommendations - taken to laboratory geneticist again following trend of troponin overnight, three stents placed - continue to monitor on telemetry - Echo demonstrated: akinesis of the inferolateral wall, with mild concentric LVH - continue ASA, Plavix, Metoprolol, and atorvastatin - continue amlodipine Elevated creatinine: - Admit Cr 1.23, BUN 30. No noted history of renal disease. May benefit from outpatient recheck. Hypertension: - Continue meds as above Chronic ITP, lymphoma: - Followed by Dr. Mcgovern ([facility]). Discharge platelets 244. Will monitor. Paroxysmal ventricular tachycardia: - History of same. BPH: - Continue home finasteride and tamsulosin. Code status: Full code Diet: Cardiac (2) CAD (coronary artery disease): (3) Elevated serum creatinine: (4) Hypertension: (5) Chronic ITP (idiopathic thrombocytopenia): (6) Paroxysmal ventricular tachycardia: (7) BPH (benign prostatic hyperplasia): Supervising Physician Co-Signing Physician Notes I personally examined the patient and verified all omalley points of history and exam, discussed case, and agree with decision making with Dr Bal. Patient seen status post cath and repeat stenting. Feeling okay. No chest pain, denies any complaints. Extensive discussions again on lifestyleas patient had many questions and was present. Answered all to the best my ability and to their satisfaction. Review of systems otherwise negative except for as above. Vitals noted, in general he is awake and alert pleasant no distress. HEENT normocephalic atraumatic mucous membranes are moist. Breathing unlabored no accessory muscle use good effort. Skin shows no rashes no pallor or icterus. Neuro shows no focal deficits. Coronary artery diseaseNSTEMI, as well as recent NSTEMI. Appearing stable, echo does show slight worsening of prior wall motion abnormality, but fortunately overall EF is preserved. Continue med management and secondary risk reduction. Now status post repeat stenting with cardiology. Continue current care otherwise. Otherwise as above Subjective Patient doing well this morning, has not had any continued discomfort in his chest or in his arms overnight; recognizes that this discomfort is similar to the pain that he had originally and remains concerned that there is a maintained pain after the initial stenting. Feels that proceeding with the catheterization is the best step to ensure that there have been no changes since the first one. Update following catheterization: patient continuing to do well; tolerated the cath well; has not had any continued discomfort in his chest or in his arms at this time Review of Systems Constitutional: no fever, no chills and no body aches Respiratory: no cough, no dyspnea and no wheezing Cardiovascular: no chest pain, no dyspnea, no orthopnea, no palpitations, no lightheadedness and no edema Physical Exam Constitutional: WD/WN, vitals as above Eyes: PERRL, conjunctivae normal, anicteric sclerae ENMT: external ear and nose normal, oropharynx normal Respiratory: normal respiratory effort, lungs clear to auscultation Cardiovascular: Rate/Rhythm: regular rate and regular rhythm Heart Sounds: no gallop, no murmur and no cardiac rub Vessels: no JVD Extremities: no edema and no varicosities Gastrointestinal (Abdomen): normal bowel sounds, soft, nontender, no hepatosplenomegaly Skin: no rashes, warm and dry Results & Data Vital Signs (Past 12 Hours) Vital Signs Temp Pulse Pulse Resp BP BP Pulse Ox 02/27/19 07:10 36.7 C 68 18 109/67 97 02/27/19 04:46 115/77 02/27/19 03:00 36.4 C L 61 20 93/44 L 97 02/26/19 23:39 36.5 C 76 19 119/65 94 02/26/19 23:16 59 L Laboratory Results 02/27/19 02/27/19 02/27/19 Range/Units 10:33 09:42 07:44 WBC (4.8-10.8) K/uL RBC (4.7-6.1) M/uL Hgb (14.0-18.0) g/dL Hct (42-52) % MCV (80-100) fL MCH (25-34) pg MCHC (32-36) g/dL RDW Std Deviation (36.4-46.3) fL RDW Coeff of Katarina (11.5-14.5) % Plt Count (130-400) K/uL MPV (7.4-10.4) fL Immature Gran % (Auto) % Neut % (Auto) % Lymph % (Auto) % [place] % (Auto) % Eos % (Auto) % Baso % (Auto) % Immature Gran # (Auto) (0.00-0.02) K/uL Neut # (Auto) (1.4-6.5) K/uL Lymph # (Auto) (1.2-3.4) K/uL [place] # (Auto) (0.11-0.59) K/uL Eos # (Auto) (0-0.5) K/uL Baso # (Auto) (0-0.2) K/uL Plt Count ,Citrate (130-400) K/uL APTT (21.0-31.0) Seconds PTT Ratio Activ Coag Time Kaolin 296 H 230 H (94-140) SECONDS Sodium (136-145) mmol/L Potassium (3.5-5.1) mmol/L Chloride (98-107) mmol/L Carbon Dioxide (21-32) mmol/L Anion Gap (3-11) BUN (7-18) mg/dl Creatinine (0.6-1.4) mg/dl Est Cr Clr Drug Dosing ml/min Est GFR ( Amer) Est GFR (Non-Af Amer) BUN/Creatinine Ratio (10-20) Glucose (70-99) mg/dl Calcium (8.5-10.1) mg/dl Troponin I 13.600 H* (0-0.045) ng/ml 02/27/19 02/27/19 02/27/19 Range/Units 06:18 06:18 06:18 WBC (4.8-10.8) K/uL RBC (4.7-6.1) M/uL Hgb (14.0-18.0) g/dL Hct (42-52) % MCV (80-100) fL MCH (25-34) pg MCHC (32-36) g/dL RDW Std Deviation (36.4-46.3) fL RDW Coeff of Katarina (11.5-14.5) % Plt Count (130-400) K/uL MPV (7.4-10.4) fL Immature Gran % (Auto) % Neut % (Auto) % Lymph % (Auto) % [place] % (Auto) % Eos % (Auto) % Baso % (Auto) % Immature Gran # (Auto) (0.00-0.02) K/uL Neut # (Auto) (1.4-6.5) K/uL Lymph # (Auto) (1.2-3.4) K/uL [place] # (Auto) (0.11-0.59) K/uL Eos # (Auto) (0-0.5) K/uL Baso # (Auto) (0-0.2) K/uL Plt Count ,Citrate 241 (130-400) K/uL APTT 128.2 H* (21.0-31.0) Seconds PTT Ratio 4.7 Activ Coag Time Kaolin (94-140) SECONDS Sodium 138 (136-145) mmol/L Potassium 4.0 (3.5-5.1) mmol/L Chloride 110 H (98-107) mmol/L Carbon Dioxide 24 (21-32) mmol/L Anion Gap 4.0 (3-11) BUN 22 H (7-18) mg/dl Creatinine 1.07 (0.6-1.4) mg/dl Est Cr Clr Drug Dosing 54.6 ml/min Est GFR ( Amer) 76.1 Est GFR (Non-Af Amer) 65.7 BUN/Creatinine Ratio 20.9 H (10-20) Glucose 104 H (70-99) mg/dl Calcium 8.6 (8.5-10.1) mg/dl Troponin I (0-0.045) ng/ml 02/27/19 02/26/19 02/26/19 Range/Units 06:18 23:01 19:16 WBC 9.56 (4.8-10.8) K/uL RBC 4.25 L (4.7-6.1) M/uL Hgb 13.4 L (14.0-18.0) g/dL Hct 39.2 L (42-52) % MCV 92.2 (80-100) fL MCH 31.5 (25-34) pg MCHC 34.2 (32-36) g/dL RDW Std Deviation 44.8 (36.4-46.3) fL RDW Coeff of Katarina 13.7 (11.5-14.5) % Plt Count (130-400) K/uL MPV (7.4-10.4) fL Immature Gran % (Auto) 0.4 % Neut % (Auto) 62.8 % Lymph % (Auto) 19.8 % [place] % (Auto) 13.4 % Eos % (Auto) 3.0 % Baso % (Auto) 0.6 % Immature Gran # (Auto) 0.04 H (0.00-0.02) K/uL Neut # (Auto) 6.00 (1.4-6.5) K/uL Lymph # (Auto) 1.89 (1.2-3.4) K/uL [place] # (Auto) 1.28 H (0.11-0.59) K/uL Eos # (Auto) 0.29 (0-0.5) K/uL Baso # (Auto) 0.06 (0-0.2) K/uL Plt Count ,Citrate (130-400) K/uL APTT 27.6 (21.0-31.0) Seconds PTT Ratio 1.0 Activ Coag Time Kaolin (94-140) SECONDS Sodium (136-145) mmol/L Potassium (3.5-5.1) mmol/L Chloride (98-107) mmol/L Carbon Dioxide (21-32) mmol/L Anion Gap (3-11) BUN (7-18) mg/dl Creatinine (0.6-1.4) mg/dl Est Cr Clr Drug Dosing ml/min Est GFR ( Amer) Est GFR (Non-Af Amer) BUN/Creatinine Ratio (10-20) Glucose (70-99) mg/dl Calcium (8.5-10.1) mg/dl Troponin I 15.600 H* (0-0.045) ng/ml 02/26/19 Range/Units 15:45 WBC (4.8-10.8) K/uL RBC (4.7-6.1) M/uL Hgb (14.0-18.0) g/dL Hct (42-52) % MCV (80-100) fL MCH (25-34) pg MCHC (32-36) g/dL RDW Std Deviation (36.4-46.3) fL RDW Coeff of Katarina (11.5-14.5) % Plt Count (130-400) K/uL MPV (7.4-10.4) fL Immature Gran % (Auto) % Neut % (Auto) % Lymph % (Auto) % [place] % (Auto) % Eos % (Auto) % Baso % (Auto) % Immature Gran # (Auto) (0.00-0.02) K/uL Neut # (Auto) (1.4-6.5) K/uL Lymph # (Auto) (1.2-3.4) K/uL [place] # (Auto) (0.11-0.59) K/uL Eos # (Auto) (0-0.5) K/uL Baso # (Auto) (0-0.2) K/uL Plt Count ,Citrate (130-400) K/uL APTT (21.0-31.0) Seconds PTT Ratio Activ Coag Time Kaolin (94-140) SECONDS Sodium (136-145) mmol/L Potassium (3.5-5.1) mmol/L Chloride (98-107) mmol/L Carbon Dioxide (21-32) mmol/L Anion Gap (3-11) BUN (7-18) mg/dl Creatinine (0.6-1.4) mg/dl Est Cr Clr Drug Dosing ml/min Est GFR ( Amer) Est GFR (Non-Af Amer) BUN/Creatinine Ratio (10-20) Glucose (70-99) mg/dl Calcium (8.5-10.1) mg/dl Troponin I 11.100 H* (0-0.045) ng/ml Medications Administered Current Inpatient Medications Acetaminophen (Tylenol) 1,000 mg PO Q6H PRN PRN Reason: Pain Stop: 03/27/19 20:57 Last Admin: 02/26/19 21:16 Dose: 1,000 mg Documented by: Amlodipine Besylate (Norvasc) 2.5 mg PO [facility] Stop: 03/28/19 11:29 Last Admin: 02/27/19 08:02 Dose: 2.5 mg Documented by: Aspirin (Ecotrin Ectab) 81 mg PO [facility] Stop: 03/28/19 08:59 Last Admin: 02/27/19 08:03 Dose: 81 mg Documented by: Atorvastatin Calcium (Lipitor) 80 mg PO HS [facility] Stop: 03/27/19 21:59 Last Admin: 02/26/19 20:13 Dose: 80 mg Documented by: Clopidogrel Bisulfate (Plavix) 75 mg PO QAM [facility] Stop: 03/28/19 08:59 Last Admin: 02/27/19 08:03 Dose: 75 mg Documented by: Finasteride (Proscar) 5 mg PO QPM [facility] Stop: 03/27/19 20:59 Last Admin: 02/26/19 20:13 Dose: 5 mg Documented by: Sodium Chloride (Nss 1000ml) 1,000 mls @ 100 mls/hr IV .Q10H [facility] Stop: 02/27/19 19:44 Last Admin: 02/27/19 12:53 Dose: 100 mls/hr Documented by: Metoprolol Succinate (Toprol Xl) 50 mg PO QAM [facility] Stop: 03/28/19 08:59 Last Admin: 02/27/19 08:03 Dose: 50 mg Documented by: Nitroglycerin (Nitrostat) 0.4 mg SL UD PRN PRN Reason: chest pain Stop: 03/27/19 20:57 Tamsulosin HCl (Flomax) 0.4 mg PO QPM [facility] Stop: 03/27/19 20:59 Last Admin: 02/26/19 20:13 Dose: 0.4 mg Documented by: Resident Activity Tracking Resident Involvement: Resident Care Provided Care Provided: Adult Hospital Medicine (1) CAD (coronary artery disease) Associated angina: with unspecified angina Coronary Disease-Associated Artery/Lesion type: unspecified vessel or lesion type [place] vs. transplanted heart: [place] heart Qualified Code(s): I25.119 - Atherosclerotic heart disease of [place] coronary artery with unspecified angina pectoris (2) Chest pain Chest pain type: unspecified Qualified Code(s): R07.9 - Chest pain, unspecified
[2019-02-27] MEDS ORDERED: CALCIUM CHLORIDE 10% 10 ML SYR IV ONE (10:35)
[2019-02-27] MEDS ORDERED: ATROPINE SULFATE 0.1 MG/ML 10ML SYR IV ONE (10:36)
[2019-02-27] MEDS ORDERED: LIDOCAINE 2% 20 MG/ML 5 ML SYR IV ONE (10:36)
--- NOTE | 2019-02-27 11:48 | Pre Anesthesia Assessment ---
Date of Service February 27, 2019 Pre Sedation Assessment Vital Signs Temp Pulse Pulse Resp BP BP Pulse Ox 02/27/19 08:00 64 02/27/19 07:10 98.1 F 68 18 109/67 97 02/27/19 04:46 115/77 02/27/19 03:00 97.5 F L 61 20 93/44 L 97 02/26/19 23:39 97.7 F 76 19 119/65 94 02/26/19 23:16 59 L 02/26/19 20:02 97.2 F L 75 18 138/80 97 02/26/19 15:50 97.9 F 62 18 133/79 97 02/26/19 15:25 68 Cardiovascular RRR, no murmur, no edema Respiratory normal respiratory effort, lungs clear to auscultation Pre-Sedation Airway Assessment Smoking Status: Never smoker Hx Sleep Apnea: No Hx Difficult Intubation: No Short, Thick Neck: Yes Thyromental Distance: > or= 3.5 Finger Breadths Oral Cavity: + Capped Teeth Mallampati Class: IV ASA: ASA3 NPO Status Date of Last Intake of Fluids: 02/26/19 Time of Last Intake of Fluids: 17:00 Date of Last Intake of Solid Food: 02/26/19 Time of Last Intake of Solid Foods: 17:00 Procedure Planning Contraindications for Sedation: none Current Medications Reviewed: Yes Notes The planned sedation has been discussed with the patient. Informed Consent was obtained. I have identified the patient, determined the appropriateness of sedation and have assessed the patient immediately prior to the procedure. All medicine(s) and interventions are by my order.
--- NOTE | 2019-02-27 11:48 | Post Anesthesia Assessment ---
Date of Service February 27, 2019 Post Sedation Assessment Vital Signs Temp Pulse Pulse Resp BP BP Pulse Ox 02/27/19 08:00 64 02/27/19 07:10 98.1 F 68 18 109/67 97 02/27/19 04:46 115/77 02/27/19 03:00 97.5 F L 61 20 93/44 L 97 02/26/19 23:39 97.7 F 76 19 119/65 94 02/26/19 23:16 59 L 02/26/19 20:02 97.2 F L 75 18 138/80 97 02/26/19 15:50 97.9 F 62 18 133/79 97 02/26/19 15:25 68 Recovery Score Activity: Moves 4 extremities Respiration: Deep Breath/Cough Circulation: +/-20% PreAnes Value Consciousness: Fully Awake Oxygen Saturation: > 92% On Room Air Discharge Sedation Level of Care: Fast Track Phase II Post Sedation Plan On clinical assessment, the patient appears to have tolerated the sedation without complications. Patient is recovering as anticipated. Patient will continue to be monitored by nursing and may be discharged when sedation discharge criteria are met per below protocol. Upon Completions of procedure up to 15 minutes continue every 5 minute vital signs and the P.A.R. score; then discharge to a Phase I or Fast Track to Phase II per the following guidelines: * Discharge Patient to appropriate Phase II area if PAR is 8 or greater or return to pre- procedure baseline. The post - procedure orders will be as directed. * If PAR score is less than 8 or not return to pre-procedure baseline then patient will follow Phase I monitoring till PAR is reached for Phase II. The Phase I may be done in procedure room or may call to secure a Phase I area. * If naloxone or flumazenil are used for reversal, hold in Phase I for continued monitoring from when last reversal dose was given for a minimum of 60 minutes or longer pending the nurse and/or physician discretion of patient condition before discharge to Phase II. Please call the Sedation Physician to re-evaluate and complete post-note for discharge to Phase II area. Do NOT discharge from procedure sedation or Phase 1 until post- sedation evalua tion note is complete by procedure /sedation MD Sedation Discharge Instructions to be given to the patient at discharge to home.
--- NOTE | 2019-02-27 11:51 | Cardiac Catheterization ---
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 Cardiac Status Clinical evaluation leading to the procedure CAD Presenation: Non STEMI Anginal Classification: CCS IV Heart Failure: No Cardiogenic Shock within 24 Hours: No Cardiac Arrest within 24 Hours: No Imaging Studies Past 6 Months: Yes Stress Studies Past 6 Months: No Diagnostic Physicians Name: Cristian Hines MD Status: Elective Closure Device Percutaneous Entry Location: Radial Closure Device: Radial Band Recommendations: PCI without planned CABG PCI Indication: PCI for high risk Non-ERIN Lesion Segment Name: mid circumflex Culprit Artery: Yes Stenosis Prior to Rx (%): 100 Chronic Total Occlusion: No IVUS: No FFR: No Pre-Procedure TRISTON Flow: 0 Previously Treated Lesion: Timeframe: less than 1 month Treated with Stent: Yes In-Stent Restenosis: No In-Stent Thrombosis: Yes Stent Type: TONIA Yes Lesion Complexity: Non-High/Non-C Lesion Length (mm): 20 Thrombus Present: Yes Bifurcation Lesion: No Guidewire Across Lesion: Stenosis Post-Procedure (%): 0 Post-Procedure TRISTON Flow: 3 Devices(s) Deployed: Yes Yes Lesion #2 Segment Name: Mid to distal RCA Culprit Artery: No Stenosis Prior to Rx (%): 99 Chronic Total Occlusion: No IVUS: No FFR: No Pre-Procedure TRISTON Flow: 3 Previously Treated Lesion: No Lesion Length (mm): 45 Thrombus Present: Yes Bifurcation Lesion: No Guidewire Across Lesion: Yes Stenosis Post-Procedure (%): 0 Post-Procedure TRISTON Flow: 3 Devices(s) Deployed: Yes Intraprocedure Events Significant Disection: No Perforation: No Cardiac Cath Procedure Full Procedure Date February 27, 2019 Pre-Procedure Diagnosis Pre-Procedure Diagnosis: Non STEMI AUC Score AUC Score: 8 Post-Procedure Diagnosis Post-Procedure Diagnosis: Severe CAD and Successful PCI Procedure(s) Performed Procedure(s) Performed: Coronary Angiography, Left Heart Cath, Drug Eluting Stent and IVUS Tool Repairer Cristian Hines MD Equine Manager(s) Familia Estimated Blood Loss Estimated Blood Loss: None Medication(s) Medication(s): Heparin, Lidocaine 1%, Nicardipine, Nitroglycerin and Versed Medication(s): Ticagrelor Summary of Findings Indication: Recurrent chest pain, NSTEMI Access: 6 Fr slender right radial artery Catheters: [place], EBU 3.5, JR4 guide Findings: LM -luminal irregularities LAD -medium caliber, diffuse 30 to 40% proximal to mid disease, distal luminal irregularities as wraps around apex. Medium first diagonal with 30% ostial stenosis Circumflex -medium caliber, mid circumflex stent occluded 100% proximally. Distal vessel fills via right to left collaterals RCA -dominant, mild diffuse proximal mid disease, 90% focal mid stenosis after RV branch, 95% latemid stenosis, 99% focal stenosis in distal segment just before takeoff of PDA. LVEDP - 4 -- PCI of mid circumflex subacute stent thrombosis-- Antithrombotic therapy: Heparin, ticagrelor Procedure: Left main cannulated with EBU 3.5 guide Oyster Fisherman 50 wire passed across occlusion into distal vessel Mid circumflex in-stent occlusion predilated with 2.0 and 2.5 compliant balloons Stent post-dilated with 2.75 noncompliant balloon Residual stenosis at distal aspect of prior stent covered with 2.25 x 8 mm Xience drug-eluting stent Stent postdilated with stent balloon IC vasodilators administered for spasm IVUS used to assess stent apposition and possible residual disease upstream from initial stent. Stents shown to be well expanded with no in-stent disease. Minimal residual disease proximal to initial stent. Post procedure TRISTON 3 flow, stent well expanded with minimal residual stenosis and no apparent cardiac complications. PCI of mid to distal RCA -- RCA cannulated with JR4 guide Oyster Fisherman 50 passed across mid RCA disease into distal vessel Mid and distal lesions dilated with 2.5 balloon With the aid of a guide liner 2.75 x 38 mm Xience Jenni drug-eluting stent deployed from latemid RCA to distal RCA just before takeoff of PDA Second TONIA placed in mid segment 2.75 x 18 mm Xience Jenni Stents postdilated with stent balloon. Concern for proximal edge dissection Third drug-eluting stent placed to mid RCA 2.75 x 8 Xience Jenni Stents dilated with 275 NC balloon Post procedure TRISTON 3 flow, stent well expanded with minimal residual stenosis and no apparent cardiac complications. Arterial Closure: TR band Summary: 1. Severe multivessel coronary artery disease -100% mid circumflex subacute stent thrombosis. OM/PLB fill via right to left collaterals 3 sequential 90+% mid to distal RCA lesions 2. Normal intracardiac filling pressure 3. Successful PCI of mid circumflex stent occlusion with stent post dilation and additional TONIA overlapping distal aspect of prior stent (2.25 x 8 Xience Jenni). 4. Successful PCI of mid to distal RCA with 3 overlapping drug-eluting stents (2.75 x 8, 2.75 x 18, 2.75 x 38 Xience Jenni). 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 Continue dual-antiplatelet therapy for at least 1 year, likely indefinitely with stents and episode of subacute stent thrombosis Continue statin, and ASCVD risk factor modification Consult cardiac Rehab Hemodynamics Rest Ao:: 96/54/73 Final Ao: 141/69/98 LV: 121/4 Recommendations Recommendations: PCI without planned CABG Specimens Specimens: None Radiation Exposure (mGy) 8377 Contrast (mls) 210 Fluids (cc crystalloids) Fluids (cc crystalloids): 260 Drains Drains: None Anesthesia Moderate Procedural Complication(s) None Disposition PCU I attest to the content of the Intraoperative Record and any orders documented therein. Any exceptions are noted below. TaggedG Card Cath Procedure Codes Cardiac Catheterization Procedure 1: Cardiovascular Cath Procedures: 52962 Coronaries and LHC (+/-LV) Therapeutic Services & Ancillary Proc Procedure 1: Cardiovascular Tx and Anc Procedures: 51708 IV Ultrasound (Coronary or Graft) Moderate Sedation Procedure 1: Sedation/Anesthesia: 39212 Mod Sedation by the same physician;Init15 Min Child Age 5 & Up Procedure 2: Sedation/Anesthesia: 19434 Mod Sedation by the same physician; Ea Addit ional15 Minutes Stenting Procedure 1: Cardiovascular Stent Procedures: 95100 Perc transcatheter placement of intracoronary stent(s), with ang Procedure 10: Cardiovascular Stent Procedures: 83363 Ea addl branch of a major coronary artery PG Care Time/CCT Total # of Minutes Spent Total Time Spent with Patient: Total time spent is greater than 50% in coordination of care (as documented) at patient's floor/unit and/or counseling patient:
[2019-02-27] MEDS ORDERED: TICAGRELOR 90 MG TAB PO ONE (12:07)
[2019-02-27] MEDS ORDERED: SODIUM CHLORIDE 0.9% 1000ML 1,000 ML IV SCH (12:15)
[2019-02-27] MEDS ORDERED: Nursing to Pharmacy Communication ONE (14:41)
--- NOTE | 2019-02-27 15:47 | Billing Data ---
Date of Service February 27, 2019 Coding Level of Care Code 07593 Subseq Hosp Care Lvl 3
--- NOTE | 2019-02-27 17:36 | Cardiology Progress Note ---
Date of Service February 27, 2019 Assessment & Plan (1) Non-ST elevation (NSTEMI) myocardial infarction: (2) CAD (coronary artery disease): (3) Mitral regurgitation: (4) Hypertension: (5) Coronary stent thrombosis: (6) Chronic ITP (idiopathic thrombocytopenia): ASSESSMENT/PLAN: 1. NSTEMI with subacute circumflex stent thrombosis: Was found to have circumflex stent thrombosis and underwent circumflex stent PCI. RCA no longer occluded but severely diseased, which also underwent PCI x3. He has documented collaterals to his circumflex and also RCA. Currently free of angina. Normal LV systolic function on echo. Continue aspirin 81 mg daily indefinitely. Now on Brilinta and would recommend at least 1 year if possible and no contraindication from ITP. High-intensity statin therapy and beta-kathi. Restart LILIANA-inhibitor and can discontinue calcium channel kathi (which was started for antianginal therapy with the thought that he would not require further intervention). Cardiac rehabilitation. 2. CAD s/p Cx PCI x 2 and RCA PCI x 3: Continue dual anti-platelet therapy. Continue other medical therapy. Currently chest pain-free. 3. Mitral regurgitation: Non severe. Follow up as an outpatient. 4. Hypertension: Blood pressure adequately controlled. Continue beta-kathi and resume lisinopril which was started earlier this week during first hospitalization. 5. Chronic ITP: As per hematology. Follow platelet levels closely now that he is on dual anti-platelet therapy. 6. Disposition: Cardiology will continue to follow. If no further issues, can likely be discharged on Sunday. Cardiac rehabilitation on discharge. Subjective He underwent PCI today of occluded circumflex stent and also seneca RCA. He tolerated the procedure well. He is currently chest pain-free. He denies shortness of breath, syncope, near-syncope, palpitations, bleeding, or complications from his right radial cath site. Review of systems: As above. Physical Exam Physical Exam: Gen.: No acute distress. Alert and oriented. HEENT: Anicteric sclera. Neck: No JVD. Cardiac: Regular. Normal S1-S2. No murmurs, rubs, or gallops. Pulmonary: Clear to auscultation bilaterally without wheezes, rales, or rhonchi. Abdomen: Soft, nontender, nondistended, with normoactive bowel sounds. No bruits noted. Extremities: Right radial cath site is without erythema or discharge. 2+ right radial pulse. No edema or cyanosis. Psychiatric: Affect appears appropriate. Results & Data Vital Signs (Past 12 Hours) Vital Signs Temp Pulse Pulse Resp BP BP Pulse Ox 02/27/19 15:10 36.7 C 67 18 125/79 98 02/27/19 14:49 67 20 138/74 97 02/27/19 14:19 67 139/91 02/27/19 14:00 67 20 133/77 95 02/27/19 13:30 71 20 135/84 96 02/27/19 13:15 62 20 134/82 98 02/27/19 13:00 69 20 142/78 H 96 02/27/19 12:49 67 144/90 H 99 02/27/19 12:34 36.4 C L 66 20 144/88 H 95 02/27/19 12:10 72 18 142/83 H 97 02/27/19 11:55 65 18 138/81 97 02/27/19 11:50 67 18 135/96 95 02/27/19 11:45 69 18 144/83 H 97 02/27/19 11:43 69 18 150/87 H 98 02/27/19 08:00 64 02/27/19 07:10 36.7 C 68 18 109/67 97 Laboratory Results Laboratory Results - last 24 hr 02/26/19 02/26/19 02/27/19 19:16 23:01 06:18 WBC 9.56 RBC 4.25 L Hgb 13.4 L Hct 39.2 L MCV 92.2 MCH 31.5 MCHC 34.2 RDW Std Deviation 44.8 RDW Coeff of Katarina 13.7 Plt Count MPV Immature Gran % (Auto) 0.4 Neut % (Auto) 62.8 Lymph % (Auto) 19.8 [place] % (Auto) 13.4 Eos % (Auto) 3.0 Baso % (Auto) 0.6 Immature Gran # (Auto) 0.04 H Neut # (Auto) 6.00 Lymph # (Auto) 1.89 [place] # (Auto) 1.28 H Eos # (Auto) 0.29 Baso # (Auto) 0.06 Plt Count ,Citrate APTT 27.6 PTT Ratio 1.0 Activ Coag Time Kaolin Sodium Potassium Chloride Carbon Dioxide Anion Gap BUN Creatinine Est Cr Clr Drug Dosing Est GFR ( Amer) Est GFR (Non-Af Amer) BUN/Creatinine Ratio Glucose POC Glucose Calcium Troponin I 15.600 H* 02/27/19 02/27/19 02/27/19 06:18 06:18 06:18 WBC RBC Hgb Hct MCV MCH MCHC RDW Std Deviation RDW Coeff of Katarina Plt Count MPV Immature Gran % (Auto) Neut % (Auto) Lymph % (Auto) [place] % (Auto) Eos % (Auto) Baso % (Auto) Immature Gran # (Auto) Neut # (Auto) Lymph # (Auto) [place] # (Auto) Eos # (Auto) Baso # (Auto) Plt Count ,Citrate 241 APTT 128.2 H* PTT Ratio 4.7 Activ Coag Time Kaolin Sodium 138 Potassium 4.0 Chloride 110 H Carbon Dioxide 24 Anion Gap 4.0 BUN 22 H Creatinine 1.07 Est Cr Clr Drug Dosing 54.6 Est GFR ( Amer) 76.1 Est GFR (Non-Af Amer) 65.7 BUN/Creatinine Ratio 20.9 H Glucose 104 H POC Glucose Calcium 8.6 Troponin I 02/27/19 02/27/19 02/27/19 07:44 09:42 10:33 WBC RBC Hgb Hct MCV MCH MCHC RDW Std Deviation RDW Coeff of Katarina Plt Count MPV Immature Gran % (Auto) Neut % (Auto) Lymph % (Auto) [place] % (Auto) Eos % (Auto) Baso % (Auto) Immature Gran # (Auto) Neut # (Auto) Lymph # (Auto) [place] # (Auto) Eos # (Auto) Baso # (Auto) Plt Count ,Citrate APTT PTT Ratio Activ Coag Time Kaolin 230 H 296 H Sodium Potassium Chloride Carbon Dioxide Anion Gap BUN Creatinine Est Cr Clr Drug Dosing Est GFR ( Amer) Est GFR (Non-Af Amer) BUN/Creatinine Ratio Glucose POC Glucose Calcium Troponin I 13.600 H* 02/27/19 16:15 WBC RBC Hgb Hct MCV MCH MCHC RDW Std Deviation RDW Coeff of Katarina Plt Count MPV Immature Gran % (Auto) Neut % (Auto) Lymph % (Auto) [place] % (Auto) Eos % (Auto) Baso % (Auto) Immature Gran # (Auto) Neut # (Auto) Lymph # (Auto) [place] # (Auto) Eos # (Auto) Baso # (Auto) Plt Count ,Citrate APTT PTT Ratio Activ Coag Time Kaolin Sodium Potassium Chloride Carbon Dioxide Anion Gap BUN Creatinine Est Cr Clr Drug Dosing Est GFR ( Amer) Est GFR (Non-Af Amer) BUN/Creatinine Ratio Glucose POC Glucose 96 Calcium Troponin I Diagnostic Findings Telemetry personally reviewed: Sinus rhythm. No arrhythmia. Echo 02/27/2019: Limited echo demonstrated EF 55-60%. Akinesis of the inferolateral wall. Mild LVH. Mild left atrial dilation. Cardiac catheterization 02/27/2019: Proximal to mid LAD 30-40%. Mid circumflex stent 100%. Distal vessel fills via [id number] collaterals. Mid RCA 90%. Late mid RCA 95%. Distal RCA 99%. Underwent PCI of in stent circumflex with 2.25 x 8mm Xience TONIA, post dilated 2.75 NC. RCA underwent PCI with 2.75 x 38 mm Xience (late mid RCA to distal RCA), 2.75 x 18 mm Xience mid RCA and 2.75 x 8 mm Xience proximally. Medications Administered Laboratory Results - last 24 hr 02/26/19 02/26/19 02/27/19 19:16 23:01 06:18 WBC 9.56 RBC 4.25 L Hgb 13.4 L Hct 39.2 L MCV 92.2 MCH 31.5 MCHC 34.2 RDW Std Deviation 44.8 RDW Coeff of Katarina 13.7 Plt Count MPV Immature Gran % (Auto) 0.4 Neut % (Auto) 62.8 Lymph % (Auto) 19.8 [place] % (Auto) 13.4 Eos % (Auto) 3.0 Baso % (Auto) 0.6 Immature Gran # (Auto) 0.04 H Neut # (Auto) 6.00 Lymph # (Auto) 1.89 [place] # (Auto) 1.28 H Eos # (Auto) 0.29 Baso # (Auto) 0.06 Plt Count ,Citrate APTT 27.6 PTT Ratio 1.0 Activ Coag Time Kaolin Sodium Potassium Chloride Carbon Dioxide Anion Gap BUN Creatinine Est Cr Clr Drug Dosing Est GFR ( Amer) Est GFR (Non-Af Amer) BUN/Creatinine Ratio Glucose POC Glucose Calcium Troponin I 15.600 H* 02/27/19 02/27/19 02/27/19 06:18 06:18 06:18 WBC RBC Hgb Hct MCV MCH MCHC RDW Std Deviation RDW Coeff of Katarina Plt Count MPV Immature Gran % (Auto) Neut % (Auto) Lymph % (Auto) [place] % (Auto) Eos % (Auto) Baso % (Auto) Immature Gran # (Auto) Neut # (Auto) Lymph # (Auto) [place] # (Auto) Eos # (Auto) Baso # (Auto) Plt Count ,Citrate 241 APTT 128.2 H* PTT Ratio 4.7 Activ Coag Time Kaolin Sodium 138 Potassium 4.0 Chloride 110 H Carbon Dioxide 24 Anion Gap 4.0 BUN 22 H Creatinine 1.07 Est Cr Clr Drug Dosing 54.6 Est GFR ( Amer) 76.1 Est GFR (Non-Af Amer) 65.7 BUN/Creatinine Ratio 20.9 H Glucose 104 H POC Glucose Calcium 8.6 Troponin I 02/27/19 02/27/19 02/27/19 07:44 09:42 10:33 WBC RBC Hgb Hct MCV MCH MCHC RDW Std Deviation RDW Coeff of Katarina Plt Count MPV Immature Gran % (Auto) Neut % (Auto) Lymph % (Auto) [place] % (Auto) Eos % (Auto) Baso % (Auto) Immature Gran # (Auto) Neut # (Auto) Lymph # (Auto) [place] # (Auto) Eos # (Auto) Baso # (Auto) Plt Count ,Citrate APTT PTT Ratio Activ Coag Time Kaolin 230 H 296 H Sodium Potassium Chloride Carbon Dioxide Anion Gap BUN Creatinine Est Cr Clr Drug Dosing Est GFR ( Amer) Est GFR (Non-Af Amer) BUN/Creatinine Ratio Glucose POC Glucose Calcium Troponin I 13.600 H* 02/27/19 16:15 WBC RBC Hgb Hct MCV MCH MCHC RDW Std Deviation RDW Coeff of Katarina Plt Count MPV Immature Gran % (Auto) Neut % (Auto) Lymph % (Auto) [place] % (Auto) Eos % (Auto) Baso % (Auto) Immature Gran # (Auto) Neut # (Auto) Lymph # (Auto) [place] # (Auto) Eos # (Auto) Baso # (Auto) Plt Count ,Citrate APTT PTT Ratio Activ Coag Time Kaolin Sodium Potassium Chloride Carbon Dioxide Anion Gap BUN Creatinine Est Cr Clr Drug Dosing Est GFR ( Amer) Est GFR (Non-Af Amer) BUN/Creatinine Ratio Glucose POC Glucose 96 Calcium Troponin I PG Care Time/CCT Total # of Minutes Spent Total Time Spent with Patient: Total time spent is greater than 50% in coordination of care (as documented) at patient's floor/unit and/or counseling patient: (1) CAD (coronary artery disease) Associated angina: with unspecified angina Coronary Disease-Associated Artery/Lesion type: unspecified vessel or lesion type [place] vs. transplanted heart: [place] heart Qualified Code(s): I25.119 - Atherosclerotic heart disease of [place] coronary artery with unspecified angina pectoris
[2019-02-27] MEDS: ATORVASTATIN 40 MG TAB PO SCH (21:30)
[2019-02-27] MEDS: TAMSULOSIN HCL 0.4 MG CAP PO SCH (21:30)
[2019-02-27] MEDS: FINASTERIDE 5 MG TAB PO SCH (21:30)
--- NOTE | 2019-02-28 06:36 | Billing Data ---
Date of Service February 28, 2019 Coding Level of Care Code 68873 OBS Care - Level 3
[2019-02-28 07:38] LABS: Basophils # (auto) 0.03 K/uL (0-0.2); Basophils % (auto) 0.3 %; Eosinophils # (auto) 0.14 K/uL (0-0.5); Eosinophils % (auto) 1.5 %; Hematocrit (blood only) 42.1 % (42-52); Hemoglobin 14.6 g/dL (14.0-18.0); Immature Granulocytes # (auto) 0.03 K/uL (0.00-0.02); Immature Granulocytes % (auto) 0.3 %; Lymphocytes # (auto) 2.31 K/uL (1.2-3.4); Lymphocytes % (auto) 25.3 %; Mean Corpuscular Hemoglobin 31.5 pg (25-34); Mean Corpuscular Hgb Conc 34.7 g/dL (32-36); Mean Corpuscular Volume 90.9 fL (80-100); Mean Platelet Volume 9.9 fL (7.4-10.4); Monocytes % (auto) 6.6 %; Neutrophils # (auto) 6.02 K/uL (1.4-6.5); Platelet Count 293 K/uL (130-400); Platelet Estimate Normal (Normal); RDW Coefficient of Variation 13.8 % (11.5-14.5); RDW Standard Deviation 44.4 fL (36.4-46.3); Red Blood Count 4.63 M/uL (4.7-6.1); White Blood Count 9.13 K/uL (4.8-10.8)
[2019-02-28] MEDS ORDERED: lisinopriL 5 MG TAB PO SCH (09:00)
[2019-02-28 09:27] LABS: BUN Creatinine Ratio 14.8 (10-20); Calcium 9.6 mg/dl (8.5-10.1); Creatinine Clr Calc Pharmacy 46.2 ml/min; Est GFR (African American) 68.3; Est GFR (Non-African American) 58.9; Potassium 4.2 mmol/L (3.5-5.1)
[2019-02-28] MEDS: ASPIRIN 81 MG ECTAB PO SCH (09:27)
[2019-02-28] MEDS: CLOPIDOGREL BISULFATE 75 MG TAB PO SCH (09:27)
[2019-02-28] MEDS: METOPROLOL SUCC 50MG EXT REL TAB PO SCH (09:27)
--- NOTE | 2019-02-28 10:09 | Cardiology Progress Note ---
Date of Service February 28, 2019 Assessment & Plan (1) Non-ST elevation (NSTEMI) myocardial infarction: (2) CAD (coronary artery disease): (3) Mitral regurgitation: (4) Hypertension: (5) Coronary stent thrombosis: (6) Chronic ITP (idiopathic thrombocytopenia): ASSESSMENT/PLAN: 1. NSTEMI with subacute circumflex stent thrombosis: Was found to have circumflex stent thrombosis and underwent circumflex stent PCI. RCA no longer occluded but severely diseased, which also underwent PCI x3. He has documented collaterals to his circumflex and also RCA. No further angina. No heart failure symptoms. Normal LV systolic function on echo. Continue aspirin 81 mg daily indefinitely. Now on Brilinta and would recommend at least 1 year if possible and no contraindication from ITP. High-intensity statin therapy and beta-kathi. Continue LILIANA-inhibitor. Cardiac rehabilitation. 2. CAD s/p Cx PCI x 2 and RCA PCI x 3: Continue dual anti-platelet therapy. Continue other medical therapy. Currently chest pain-free. 3. Mitral regurgitation: Non severe. Follow up as an outpatient. 4. Hypertension: Blood pressure adequately controlled. Continue current regimen. 5. Chronic ITP: As per hematology. Follow platelet levels closely now that he is on dual anti-platelet therapy. Discussed with primary hospitalist Service, Dr. Bal, who plans on discussing with Hematology today. 6. Disposition: He was encouraged to ambulate the hallways today. ECG was ordered as his heart rate is a bit faster than it had been, but still sinus on telemetry. If no further issues from a cardiac standpoint, can be discharged from a Cardiology perspective. He is having diarrhea however. This was discussed with Dr. Bal. Primary service to determine further investigation or monitoring for his other medical issues. Has follow-up appointment scheduled next week in the cardiology office, which he should keep. I will be away from the hospital for the next 2 days. Please call field crop harvest contractor nursing assistant for any questions or concerns. Subjective He has not had any angina. He denies shortness of breath, palpitations, syncope, near-syncope, edema, or bleeding. He did have diarrhea this morning. He has ambulated within his room without exertional symptoms. His son, Lamberto, presented to the bedside. Review of systems: As above. Physical Exam Physical Exam: Gen.: No acute distress. Alert and oriented. HEENT: Anicteric sclera. Neck: No JVD. Cardiac: Regular. Normal S1-S2. No murmurs, rubs, or gallops. Pulmonary: Clear to auscultation bilaterally without wheezes, rales, or rhonchi. Abdomen: Soft, nontender, nondistended, with normoactive bowel sounds. No bruits noted. Extremities: Right radial cath site is without erythema or discharge. No hematoma. 2+ right radial pulse. No edema or cyanosis. Psychiatric: Affect appears appropriate. Results & Data Vital Signs (Past 12 Hours) Vital Signs Temp Pulse Pulse Pulse Resp BP Pulse Ox 02/28/19 08:00 94 H 18 136/84 96 02/28/19 03:03 36.5 C 70 18 127/77 96 02/27/19 23:59 69 02/27/19 23:37 36.4 C L 76 18 107/64 94 Laboratory Results Laboratory Results - last 24 hr 02/27/19 02/27/19 02/27/19 09:42 10:33 16:15 WBC RBC Hgb Hct MCV MCH MCHC RDW Std Deviation RDW Coeff of Katarina Plt Count MPV Immature Gran % (Auto) Neut % (Auto) Lymph % (Auto) [place] % (Auto) Eos % (Auto) Baso % (Auto) Immature Gran # (Auto) Neut # (Auto) Lymph # (Auto) [place] # (Auto) Eos # (Auto) Baso # (Auto) Platelet Estimate Plt Count ,Citrate Activ Coag Time Kaolin 230 H 296 H Sodium Potassium Chloride Carbon Dioxide Anion Gap BUN Creatinine Est Cr Clr Drug Dosing Est GFR ( Amer) Est GFR (Non-Af Amer) BUN/Creatinine Ratio Glucose POC Glucose 96 Calcium 02/27/19 02/28/19 02/28/19 20:37 06:50 06:50 WBC 9.13 RBC 4.63 L Hgb 14.6 Hct 42.1 MCV 90.9 MCH 31.5 MCHC 34.7 RDW Std Deviation 44.4 RDW Coeff of Katarina 13.8 Plt Count 293 MPV 9.9 Immature Gran % (Auto) 0.3 Neut % (Auto) 66.0 Lymph % (Auto) 25.3 [place] % (Auto) 6.6 Eos % (Auto) 1.5 Baso % (Auto) 0.3 Immature Gran # (Auto) 0.03 H Neut # (Auto) 6.02 Lymph # (Auto) 2.31 [place] # (Auto) 0.60 H Eos # (Auto) 0.14 Baso # (Auto) 0.03 Platelet Estimate Normal Plt Count ,Citrate Cancelled Activ Coag Time Kaolin Sodium Potassium Chloride Carbon Dioxide Anion Gap BUN Creatinine Est Cr Clr Drug Dosing Est GFR ( Amer) Est GFR (Non-Af Amer) BUN/Creatinine Ratio Glucose POC Glucose 89 Calcium 02/28/19 02/28/19 06:53 07:31 WBC RBC Hgb Hct MCV MCH MCHC RDW Std Deviation RDW Coeff of Katarina Plt Count MPV Immature Gran % (Auto) Neut % (Auto) Lymph % (Auto) [place] % (Auto) Eos % (Auto) Baso % (Auto) Immature Gran # (Auto) Neut # (Auto) Lymph # (Auto) [place] # (Auto) Eos # (Auto) Baso # (Auto) Platelet Estimate Plt Count ,Citrate Activ Coag Time Kaolin Sodium 137 Potassium 4.2 Chloride 109 H Carbon Dioxide 22 Anion Gap 6.0 BUN 17 Creatinine 1.17 Est Cr Clr Drug Dosing 46.2 Est GFR ( Amer) 68.3 Est GFR (Non-Af Amer) 58.9 BUN/Creatinine Ratio 14.8 Glucose 101 H POC Glucose 103 H Calcium 9.6 Diagnostic Findings Telemetry personally reviewed: No arrhythmia. Sinus rhythm. Medications Administered Current Inpatient Medications Acetaminophen (Tylenol) 1,000 mg PO Q6H PRN PRN Reason: Pain Stop: 03/27/19 20:57 Last Admin: 02/26/19 21:16 Dose: 1,000 mg Documented by: Aspirin (Ecotrin Ectab) 81 mg PO QAM [facility] Stop: 03/28/19 08:59 Last Admin: 02/28/19 09:27 Dose: 81 mg Documented by: Atorvastatin Calcium (Lipitor) 80 mg PO HS [facility] Stop: 03/27/19 21:59 Last Admin: 02/27/19 21:30 Dose: 80 mg Documented by: Finasteride (Proscar) 5 mg PO QPM [facility] Stop: 03/27/19 20:59 Last Admin: 02/27/19 21:30 Dose: 5 mg Documented by: Lisinopril (Zestril) 5 mg PO QAM [facility] Stop: 03/30/19 08:59 Last Admin: 02/28/19 09:27 Dose: 5 mg Documented by: Metoprolol Succinate (Toprol Xl) 50 mg PO QAM [facility] Stop: 03/28/19 08:59 Last Admin: 02/28/19 09:27 Dose: 50 mg Documented by: Nitroglycerin (Nitrostat) 0.4 mg SL UD PRN PRN Reason: chest pain Stop: 03/27/19 20:57 Tamsulosin HCl (Flomax) 0.4 mg PO QPM [facility] Stop: 03/27/19 20:59 Last Admin: 02/27/19 21:30 Dose: 0.4 mg Documented by: Ticagrelor (Brilinta) 90 mg PO BID [facility] Stop: 03/30/19 10:14 PG Care Time/CCT Total # of Minutes Spent Total Time Spent with Patient: Total time spent is greater than 50% in coordination of care (as documented) at patient's floor/unit and/or counseling patient: (1) CAD (coronary artery disease) Associated angina: with unspecified angina Coronary Disease-Associated Artery/Lesion type: unspecified vessel or lesion type [place] vs. transplanted heart: [place] heart Qualified Code(s): I25.119 - Atherosclerotic heart disease of [place] coronary artery with unspecified angina pectoris
[2019-02-28] MEDS: TICAGRELOR 90 MG TAB PO SCH ×2 (11:18→19:20)
--- NOTE | 2019-02-28 18:02 | Hospitalist Progress Note ---
Date of Service February 28, 2019 Assessment & Plan (1) Chest pain: 78-year-old male was admitted on 25 February 2019 for chest pain following stent placement into L circumflex on 02/23 Chest pain, CAD: - initial troponin 6.5 on presentation to ED; trended up to 15.6 overnight - Acute recurrence of chest pain soon after his discharge. Presently near totally resolved, un-related to nitroglycerin. Denies any concurrent symptoms to include difficulty breathing, abdominal pain, N/V, or diaphoresis. - Cardiology consulted: appreciate recommendations - taken to senior cytogenetics laboratory director again following trend of troponin overnight, three stents placed in RCA, stent thrombosis in L Cx re-stented - continue to monitor on telemetry - Echo demonstrated: akinesis of the inferolateral wall, with mild concentric LVH - continue ASA, Plavix, Metoprolol, atorvastatin; restart Lisinopril 5mg for cardiac protection - discontinue amlodipine Diarrhea: - risk factors for C. diff colitis given hospitalization over the last week - unlikely given the paucity of bowel movements over the day, but inherit risks from hospitalization - will continue to monitor overnight Elevated creatinine: - Admit Cr 1.23, BUN 30. No noted history of renal disease. May benefit from outpatient recheck. Hypertension: - Continue meds as above Chronic ITP, lymphoma: - Followed by Dr. Mcgovern ([facility]). Platelets 293 this AM - Will continue to monitor and will need consistent monitoring as an outpatient BPH: - Continue home finasteride and tamsulosin. Code status: Full code Diet: Cardiac (2) CAD (coronary artery disease): (3) Elevated serum creatinine: (4) Hypertension: (5) Chronic ITP (idiopathic thrombocytopenia): (6) Paroxysmal ventricular tachycardia: (7) BPH (benign prostatic hyperplasia): Supervising Physician Co-Signing Physician Notes I personally examined the patient and verified all omalley points of history and exam, discussed case, and agree with decision making with Dr Bla. main complaint today is watery diarrhea. no f/c/s. no significant abdominal pain just cramping. Review of systems otherwise negative except for as above. Vitals noted, in general he is awake and alert pleasant no distress. HEENT normocephalic atraumatic mucous membranes are moist. Breathing unlabored no accessory muscle use good effort. abd soft mildly distended nontender Skin shows no rashes no pallor or icterus. Neuro shows no focal deficits. Coronary artery diseaseNSTEMI currently from in stent thrombosis, as well as recent NSTEMI earlier in the week as index event. Looking stable s/p repeat stenting and improvement of thrombosis. Appearing stable, echo does show slight worsening of prior wall motion abnormality, but fortunately overall EF is preserved. Continue med management and secondary risk reduction. diarrhea - more than likely stress/med change related, but given that he's spent most of the week in the hospital and diarrhea is watery/new/worsening - check Cdiff to be safe. Otherwise as above Subjective Patient had three loose bowel movements throughout the day today, initial bowel movement was entirely liquid without stool formation, and subsequent bowel movements have been similarly loose. Patient feels that with all the recent changes over the last week, it is better to be safe and await the test results from stool sample overnight. Physical Exam Constitutional: WD/WN, vitals as above Eyes: PERRL, conjunctivae normal, anicteric sclerae Respiratory: normal respiratory effort, lungs clear to auscultation Cardiovascular: Rate/Rhythm: regular rate and regular rhythm Heart Sounds: normal S1 and normal S2; no gallop, no murmur and no cardiac rub Gastrointestinal (Abdomen): normal bowel sounds, soft, nontender, no hepatosplenomegaly Results & Data Vital Signs (Past 12 Hours) Vital Signs Temp Pulse Pulse Resp BP Pulse Ox 02/28/19 15:59 78 02/28/19 15:04 36.2 C L 78 19 122/77 99 02/28/19 12:00 36.8 C 89 18 136/87 95 02/28/19 08:00 94 H 18 136/84 96 Laboratory Results 02/28/19 02/28/19 02/28/19 Range/Units 16:57 11:29 07:31 WBC (4.8-10.8) K/uL RBC (4.7-6.1) M/uL Hgb (14.0-18.0) g/dL Hct (42-52) % MCV (80-100) fL MCH (25-34) pg MCHC (32-36) g/dL RDW Std Deviation (36.4-46.3) fL RDW Coeff of Katarina (11.5-14.5) % Plt Count (130-400) K/uL MPV (7.4-10.4) fL Immature Gran % (Auto) % Neut % (Auto) % Lymph % (Auto) % Millard % (Auto) % Eos % (Auto) % Baso % (Auto) % Immature Gran # (Auto) (0.00-0.02) K/uL Neut # (Auto) (1.4-6.5) K/uL Lymph # (Auto) (1.2-3.4) K/uL Millard # (Auto) (0.11-0.59) K/uL Eos # (Auto) (0-0.5) K/uL Baso # (Auto) (0-0.2) K/uL Platelet Estimate (Normal) Plt Count ,Citrate Sodium (136-145) mmol/L Potassium (3.5-5.1) mmol/L Chloride (98-107) mmol/L Carbon Dioxide (21-32) mmol/L Anion Gap (3-11) BUN (7-18) mg/dl Creatinine (0.6-1.4) mg/dl Est Cr Clr Drug Dosing ml/min Est GFR ( Amer) Est GFR (Non-Af Amer) BUN/Creatinine Ratio (10-20) Glucose (70-99) mg/dl POC Glucose 116 H 103 H (70-99) Calcium (8.5-10.1) mg/dl Stl C. diff Tox B Gene Pending 02/28/19 02/28/19 02/28/19 Range/Units 06:53 06:50 06:50 WBC 9.13 (4.8-10.8) K/uL RBC 4.63 L (4.7-6.1) M/uL Hgb 14.6 (14.0-18.0) g/dL Hct 42.1 (42-52) % MCV 90.9 (80-100) fL MCH 31.5 (25-34) pg MCHC 34.7 (32-36) g/dL RDW Std Deviation 44.4 (36.4-46.3) fL RDW Coeff of Katarina 13.8 (11.5-14.5) % Plt Count 293 (130-400) K/uL MPV 9.9 (7.4-10.4) fL Immature Gran % (Auto) 0.3 % Neut % (Auto) 66.0 % Lymph % (Auto) 25.3 % Millard % (Auto) 6.6 % Eos % (Auto) 1.5 % Baso % (Auto) 0.3 % Immature Gran # (Auto) 0.03 H (0.00-0.02) K/uL Neut # (Auto) 6.02 (1.4-6.5) K/uL Lymph # (Auto) 2.31 (1.2-3.4) K/uL Millard # (Auto) 0.60 H (0.11-0.59) K/uL Eos # (Auto) 0.14 (0-0.5) K/uL Baso # (Auto) 0.03 (0-0.2) K/uL Platelet Estimate Normal (Normal) Plt Count ,Citrate Cancelled Sodium 137 (136-145) mmol/L Potassium 4.2 (3.5-5.1) mmol/L Chloride 109 H (98-107) mmol/L Carbon Dioxide 22 (21-32) mmol/L Anion Gap 6.0 (3-11) BUN 17 (7-18) mg/dl Creatinine 1.17 (0.6-1.4) mg/dl Est Cr Clr Drug Dosing 46.2 ml/min Est GFR ( Amer) 68.3 Est GFR (Non-Af Amer) 58.9 BUN/Creatinine Ratio 14.8 (10-20) Glucose 101 H (70-99) mg/dl POC Glucose (70-99) Calcium 9.6 (8.5-10.1) mg/dl Stl C. diff Tox B Gene 02/27/19 Range/Units 20:37 WBC (4.8-10.8) K/uL RBC (4.7-6.1) M/uL Hgb (14.0-18.0) g/dL Hct (42-52) % MCV (80-100) fL MCH (25-34) pg MCHC (32-36) g/dL RDW Std Deviation (36.4-46.3) fL RDW Coeff of Katarina (11.5-14.5) % Plt Count (130-400) K/uL MPV (7.4-10.4) fL Immature Gran % (Auto) % Neut % (Auto) % Lymph % (Auto) % Millard % (Auto) % Eos % (Auto) % Baso % (Auto) % Immature Gran # (Auto) (0.00-0.02) K/uL Neut # (Auto) (1.4-6.5) K/uL Lymph # (Auto) (1.2-3.4) K/uL Millard # (Auto) (0.11-0.59) K/uL Eos # (Auto) (0-0.5) K/uL Baso # (Auto) (0-0.2) K/uL Platelet Estimate (Normal) Plt Count ,Citrate Sodium (136-145) mmol/L Potassium (3.5-5.1) mmol/L Chloride (98-107) mmol/L Carbon Dioxide (21-32) mmol/L Anion Gap (3-11) BUN (7-18) mg/dl Creatinine (0.6-1.4) mg/dl Est Cr Clr Drug Dosing ml/min Est GFR ( Amer) Est GFR (Non-Af Amer) BUN/Creatinine Ratio (10-20) Glucose (70-99) mg/dl POC Glucose 89 (70-99) Calcium (8.5-10.1) mg/dl Stl C. diff Tox B Gene Medications Administered Current Inpatient Medications Acetaminophen (Tylenol) 1,000 mg PO Q6H PRN PRN Reason: Pain Stop: 03/27/19 20:57 Last Admin: 02/26/19 21:16 Dose: 1,000 mg Documented by: Aspirin ([facility]rin Ectab) [facility] [place] Stop: 03/28/19 08:59 Last Admin: 02/28/19 09:27 Dose: 81 mg Documented by: Atorvastatin Calcium (Lipitor) 80 mg PO HS [facility] Stop: 03/27/19 21:59 Last Admin: 02/27/19 21:30 Dose: 80 mg Documented by: Finasteride (Proscar) 5 mg PO QPM [facility] Stop: 03/27/19 20:59 Last Admin: 02/27/19 21:30 Dose: 5 mg Documented by: Lisinopril (Zestril) 5 mg PO QAM [facility] Stop: 03/30/19 08:59 Last Admin: 02/28/19 09:27 Dose: 5 mg Documented by: Metoprolol Succinate (Toprol Xl) [facility] [place] Stop: 03/28/19 08:59 Last Admin: 02/28/19 09:27 Dose: 50 mg Documented by: Nitroglycerin (Nitrostat) 0.4 mg SL UD PRN PRN Reason: chest pain Stop: 03/27/19 20:57 Tamsulosin HCl (Flomax) 0.4 mg PO QPM [facility] Stop: 03/27/19 20:59 Last Admin: 02/27/19 21:30 Dose: 0.4 mg Documented by: Ticagrelor (Brilinta) 90 mg PO BID [facility] Stop: 03/30/19 10:14 Last Admin: 02/28/19 11:18 Dose: 90 mg Documented by: Resident Activity Tracking Resident Involvement: Resident Care Provided Care Provided: Adult Hospital Medicine (1) CAD (coronary artery disease) Associated angina: with unspecified angina Coronary Disease-Associated Artery/Lesion type: unspecified vessel or lesion type [place] vs. transplanted heart: [place] heart Qualified Code(s): I25.119 - Atherosclerotic heart disease of [place] coronary artery with unspecified angina pectoris (2) Chest pain Chest pain type: unspecified Qualified Code(s): R07.9 - Chest pain, unspecified
--- NOTE | 2019-02-28 18:56 | Discharge Summary ---
Date of Service February 28, 2019 Admission HPI Per Admitting Provider 78-year-old male presents for evaluation for chest discomfort. As background, patient complained of chest pressure/tightness with radiation into his arms back on 22Dec. He ultimately underwent a cardiac cath with placement of a single TONIA. His symptoms improved and resolved over the subsequent days and he was discharged earlier today. Patient says that he ended up going home, took a shower, and was sitting down reading through some paperwork when he had return of some discomfort in his right arm. He initially thought it might be acid indigestion, however the discomfort then spread to his bilateral arms and up to his jaw. He took a single nitroglycerin with no relief and then decided to present to the ED for further evaluation. He says his discomfort was minimal, perhaps 2/10 in severity. He is not sure that the nitroglycerin helped. He denies any concurrent symptoms to include diaphoresis, nausea or vomiting, difficulty breathing, or focal weakness. He does say that this felt near identical to his symptoms a few days ago. Here in the ED on H&P, patient says that his symptoms are virtually resolved. He denies any other interval changes and tolerated his dinner well. - Past medical history includes hypertension, NSTEMI, CAD, mitral regurg, chronic ITP and lymphoma, paroxysmal ventricular tachycardia, kidney stones, rheumatoid arthritis, BPH, GERD. - Past surgical history includes adenoidectomy, appendectomy, lithotripsy, tonsillectomy, bilateral total hip arthroplasty. - Social history includes never smoked. Does drink alcohol. Lives at home with family. Principal Diagnosis NSTEMI Discharge Exam Constitutional WD/WN, vitals as above Eyes PERRL, conjunctivae normal, anicteric sclerae ENMT external ear and nose normal, oropharynx normal Respiratory normal respiratory effort, lungs clear to auscultation Cardiovascular Rate/Rhythm: regular rate and regular rhythm Heart Sounds: normal S1 and normal S2; no gallop, no murmur and no cardiac rub Vessels: no JVD Extremities: no edema and no varicosities Gastrointestinal (Abdomen) normal bowel sounds, soft, nontender, no hepatosplenomegaly Musculoskeletal Shoulder: no deformity, no skin erythema, normal ROM of shoulder, no crepitation with shoulder ROM and no joint line tenderness Skin no rashes, warm and dry Discharge Data Allergies Allergy/AdvReac Type Severity Reaction Status Date / Time Bactrim Allergy Severe HIVES, Verified 07/27/17 10:29 INTERFERES WITH IMMUNE SYSTEM Cipro Allergy Severe MUSCLE Verified 07/27/17 10:29 PROBLEMS ciprofloxacin Allergy Severe MUSCLE Verified 02/25/19 17:51 PROBLEMS morphine Allergy Severe HALLUCINATI Verified 02/25/19 17:51 ONS sulfamethoxazole Allergy Severe HIVES, Verified 02/25/19 17:51 INTERFERES WITH IMMUNE SYSTEM trimethoprim Allergy Severe HIVES, Verified 02/25/19 17:51 INTERFERES WITH IMMUNE SYSTEM Consultations 02/25/19 20:58 Consult Cardiology Routine Procedures Performed Operation Date: 02/27/19 09:00 Actual Procedures s Cineradiography w/Routine Exam - Morgan Hines MD s Drug Eluting Stent SGl Vessel - Morgan Hines MD s IVUS Coronary Single Vessel - Morgan Hines MD p Cath, Left with Cors and Vent - Morgan Hines MD s Drug Eluting Stent each ADDTL Vessel - Morgan Hines MD Ordered Studies 02/27/19 08:12 CL Cath Imgs for PACS use only Routine 02/27/19 10:13 CL IVUS Coronary Single Vessel Routine Hospital Course (1) Chest pain: 78-year-old male was admitted on 25 February 2019 for chest pain following stent placement into L circumflex on 02/23 Chest pain, CAD: - initial troponin 6.5 on presentation to ED; trended up to 15.6 overnight - Acute recurrence of chest pain soon after his discharge. Presently near totally resolved, un-related to nitroglycerin. Denies any concurrent symptoms to include difficulty breathing, abdominal pain, N/V, or diaphoresis. - Cardiology consulted: appreciate recommendations - taken to metallurgy laboratory technician again following trend of troponin overnight, three stents placed in RCA, stent t hrombosis in L Cx re-stented - continue to monitor on telemetry - Echo demonstrated: akinesis of the inferolateral wall, with mild concentric LVH - continue ASA, Brilinta, Metoprolol, atorvastatin, and Lisinopril 5mg - will need to be on Brilinta at minimum 6 months, but will need dual anti- platelet therapy for life given stent thrombosis; in one year can be converted to Plavix and off of Brilinta Diarrhea: - risk factors for C. diff colitis given hospitalization over the last week - unlikely given the paucity of bowel movements throughout the day, but inherit risks from hospitalization - C. diff negative Elevated creatinine: - Admit Cr 1.23; May benefit from outpatient recheck. Hypertension: - Continue meds as above Chronic ITP, lymphoma: - Followed by Dr. Mcgovern ([facility]). Platelets 293 morning of discharge - will need consistent monitoring as an outpatient BPH: - Continue home finasteride and tamsulosin. Code status: Full code Diet: Cardiac (2) CAD (coronary artery disease): (3) Elevated serum creatinine: (4) Hypertension: (5) Chronic ITP (idiopathic thrombocytopenia): (6) Paroxysmal ventricular tachycardia: (7) BPH (benign prostatic hyperplasia): Total Time Total Time Spent Total Time Spent (In Minutes): >30 Discharge Plan Discharge Items Patient Disposition: Home - Self-Care Reason For Visit: CHEST PAIN,RECENT NSTEMI Discharge Diagnosis: NSTEMI Activity: Per Instructions section Non-emergency contact: Primary Care Provider and Canal Boat Captain Call non-emergency contact if: your symptoms worsen Follow-up/Referrals: Anais Pearson PA-C [Physician Computer Education Professor] - 03/06/19 1:30 pm (Please, follow up at [facility]iology Office with Anais Pearson PA-C on March 06 at 1:30 pm. *The office is located in [address] of [facility] [place], next to this [facility]. If you need to change this appointment, call the office at [phone].) Vani aMuro [Primary Care Provider] - 03/03/19 10:30 am (Please, follow up with Dr. Mauro on SundayMarch 03 at 10:30 am. *If you need to change this appointment, call the office at [phone].) Diet: Heart Healthy Add Attending Provider Instructions: You were admitted following having chest pain and tightness; as we were monitoring you during this admission, you had some changes to the enzymes produced by your heart, but only minimal changes to the electrical activity of your heart, both of these indicated that you were having a form of a heart attack called a Non-ST Elevated Myocardial Infarct. You had three stents placed in one vessel on the right side of your heart, and had your previously placed stent on the left side re-opened. As a result of this new stent placement, you restarted your medications that you will need to continue now that you are leaving the hospital. We continued your metoprolol, that we started you on last hospitalization; additionally, we continued Lisinopril, for the protective benefits of your heart after having a stent placed. We also started you on Atorvastatin for your cholesterol. Finally, you were started on a baby Aspirin that you will take daily going forward; and Brillinta that you will take daily until at minimum 6 months given your ITP condition but ideally you will be taking two drugs that prevent platelet clotting for life. After one year, you could be switched back to Plavix. Given the response your body had to the IVIG, the use of aspirin is allowed, but you should continue have your platelets monitored regularly with your aircraft de icer installer, and you should continue to monitor yourself for similar bruising to what you had when you were first diagnosed with ITP. Home Care: Take your medications exactly as directed. Don't skip doses. Remember that recovery after a heart attack takes time. Plan to rest for at lease 4-8 weeks while you recover. Then return to normal activity when your doctor says it's okay. Ask your doctor about joining a heart rehabilitation program. Tell your doctor if you are feeling depressed. Feelings of sadness are common after a heart attack, but it is important that you speak to someone if you are feeling overwhelmed by these feelings. If you are having chest pain, call 911 for an ambulance. Do NOT drive yourself to the hospital. Ask your family members to learn CPR. Learn to take your own blood pressure and pulse. Keep a record of your results. Ask your doctor when you should seek emergency medical attention. He or she will tell you which blood pressure reading is dangerous. Lifestyle Changes: Maintain a healthy weight. Get help to lose any extra pounds. Cut back on salt. Limit canned, dried, packaged, and fast foods. Don't add salt to your food. Season foods with herbs instead of salt when you cook. Limit fatty foods. Ask your doctor about having your lipid levels checked regularly. Build up your activity according to your doctor's recommendation. Ask your doctor when it's okay to resume sexual activity. Tell your doctor about any erectile dysfunction (ED) medication you are taking. Some ED medications are not safe if you take certain heart medications. Try to manage stress. Follow Up: It is important for you to keep your follow up appointments with your medical provider. ACTIVITY RECOMMENDATIONS: Excess manipulation of the wrist should be avoided for the next 24-48 hours. * No lifting over 2 pounds (approximately a 1/2 gallon of milk) with the utilized arm for 24 hours. * No strenuous activity such as bowling or tennis for 3 days. * Keep the site of the procedure covered with a bandage for 24 hours. *You may shower the day after the procedure. Do not take a tub bath or submerge the puncture site in water for the next 3 days. *Do not operate any motorized equipment for 3 days. SPECIAL CARE INSTRUCTIONS: The site may be slightly bruised and sore following your procedure. Should any of the following occur, contact the doctor who performed your procedure. 1. Redness/inflammation, swelling, chills, or fever, or colored drainage at procedure site within 3-7 days after your procedure. 2. Coldness, discoloration, ongoing numbness, severe pain, or swelling. Expect mild tingling of hand and tenderness at the puncture site for up to three days. If this persists beyond three days, or other symptoms develop, notify the doctor who performed your procedure. BLEEDING: If the procedure site on your wrist begins to bleed, do not panic 1. Place 1 or 2 fingers firmly just slightly above the insertion site to stop the bleeding. You may be able to feel your pulse as you hold pressure. 2. Lift your finger after 5 minutes to see if the bleeding has stopped. 3. Once the bleeding has stopped, gently wipe the wrist area clean with a bandage. * If the bleeding from your wrist does not stop after 10 minutes, or if there is a large amount of bleeding or spurting, call 911 (do not drive yourself to the hospital). SKIN IRRITATION: * You may experience some redness and/or swelling in the area where radiation was administered. If any skin irritation occurs, please contact your family physician. FOLLOW UP VISIT: Keep any scheduled doctor appointments. Pending Studies at Discharge: No Stand-Alone Forms: Call Back Authorization, [facility] [employer] Heat Games, Smoking Cessation Medications and DC Order Prescriptions: New Brilinta 90 mg Tablet 90 mg PO BID 30 Days Qty: 60 RF: 0 Continued tamsulosin [Flomax] 0.4 mg Capsule 0.4 mg PO QPM RF: 0 finasteride 5 mg Tablet 5 mg PO QPM RF: 0 acetaminophen [Tylenol Extra Strength] 500 mg Tablet 1,000 mg PO Q6H PRN (Reason: Pain) RF: 0 atorvastatin 40 mg Tablet 80 mg PO HS 30 Days Qty: 60 RF: 0 metoprolol succinate 50 mg Tablet Extended Release 24 Hr 50 mg PO QAM 30 Days Qty: 30 RF: 0 aspirin [Ecotrin Low Strength] 81 mg Tablet,Delayed Release (Dr/Ec) 81 mg PO QAM Qty: 0 RF: 0 lisinopril [Zestril] 5 mg Tablet 5 mg PO QAM 30 Days Qty: 30 RF: 0 nitroglycerin [Nitrostat] 0.4 mg Tablet, Sublingual 0.4 mg sublingual UD PRN (Reason: chest pain) Qty: 30 RF: 0 Discontinued clopidogrel 75 mg Tablet 75 mg PO QAM 30 Days Qty: 30 RF: 0 Discharge Orders: Discharge Order (Routine); Ordered 02/28/19 Ordered By: Alfred Patino Admission Data Admit Date/Time: 02/27/19 11:38 Attending Provider: Gaston Hall Admit Provider: Leopoldo Le Primary Care Provider: Vani Mauro Other Providers: Christophe Watkins ; Coy Bella Other Interventions: Discharge Summary Assessment (RN) Last Done: 02/28/19 18:58 DC Date/Time DO NOT enter until pt leaves facility: 02/28/19 20:43 Supervising Physician Co-Signing Physician Notes I personally examined the patient and verified all omalley points of history and ex am, discussed case, and agree with decision making with Dr Patino see progress note same date Cdiff negative, pt felt safe to go home d/w pt and son w dr patino stable for home otherwise as per dr patino. Resident Activity Tracking Resident Involvement: Resident Care Provided Care Provided: Adult Hospital Medicine
[2019-02-28] MEDS: ATORVASTATIN 40 MG TAB PO SCH (19:19)
[2019-02-28] MEDS: TAMSULOSIN HCL 0.4 MG CAP PO SCH (19:20)
[2019-02-28] MEDS: FINASTERIDE 5 MG TAB PO SCH (19:20)
--- NOTE | 2019-03-01 20:00 | Billing Data ---
Date of Service February 28, 2019 Coding Level of Care Code D/C Day Management >30 mins
== END 2019-02-28 20:43 | disposition home or self-care (01) | DRG 247 ==
LOC: ED 16:53 → 2N 16:53 → SUATTDRO 19:56 → 2N 20:28 → 2S 02-27 12:50

== ENCOUNTER 2019-05-22 21:45 | Observation (INO) ==
[2019-05-22] MEDS ORDERED: SODIUM CHLORIDE 0.9% 1000ML 1,000 ML IV ONE (22:15)
--- NOTE | 2019-05-22 22:37 | Emergency Department Note ---
ED Provider Note NAME: LAVELLE FAGAN AGE: 78 SEX: M ARRIVES VIA: Walk-In INFORMANT: Patient, ED PROVIDER(S): Johnnie Cabral MD CHIEF COMPLAINT: Aphasia, weakness MEDICAL DECISION MAKING: The patient is a pleasant 78-year-old gentleman with a past medical history of CAD status post PCI on Brilinta, hypertension, mitral regurg, chronic ITP and non-Hodgkin's lymphoma, paroxysmal V. tach, rheumatoid arthritis, BPH and GERD who presents emergency department with episode of strokelike symptoms with difficulty with speech, generalized weakness and imbalance which began around 4 PM in the setting of having IVIG infusion for his ITP today with platelets of 47K having had taken his Brilinta this afternoon. On arrival the patient is in no acute distress, afebrile stable vital signs. He appears clinically dry. He does exhibit some subtle dysarthria but otherwise has fluent speech. He exhibits some generalized difficulty with ambulation where he is very cautious and somewhat unsteady but no overt ataxia. The patient last known well was approximately 6 hours prior to arrival he is not a TPA candidate, in addition to the fact that he is on Brilinta having just taken his dose this afternoon in the setting of thrombocytopenia with platelets of 47K. However, stroke evaluation was expedited to evaluate the possibility of large vessel occlusion that potentially could be amenable to endovascular treatment. EKG without overt acute ischemia and improved from his prior February when he had his STEMI. WBC 16.8, nonspecific. H/H 13.7/39.7 similar to prior values. Platelets 81K up from 47K this morning after receiving IVIG today. Chemistry without acidosis. Electrolytes and LFTs unremarkable. Troponin 0.021, within normal limits. UA negative for infection. CT of the head and CT of the head and neck without ICH, ischemic areas or severe narrowing or occlusion of large vessels. Note is made however of "atherosclerotic disease within the posterior circulation with mild bilateral distal vertebral artery stenoses on a mild basilar artery stenosis. Given the patient's symptoms reasonable to proceed with admission for further stroke evaluation with likely MRI. Patient is agreeable with this plan. Case was discussed with Dr. Stacy, [facility] hospitalist, who will evaluate the patient for admission. Triage Nursing notes reviewed and agree them. Prior medical records reviewed Vital Signs: reviewed and remarkable for hypertension. Differential diagnosis: Infection, dehydration, metabolic abnormality, hypo/hyperglycemia, electrolyte disturbance, anemia, hypoxia, cardiac sources, intracerebral event, toxicologic, neurologic, as well as other pathologies. ER treatment provided: See Below. Diagnostics interpreted by me: ECG: Sinus rhythm, 61 bpm, no ST elevation or depression. LVH. Improved in appearance compared to 02/28/2019. Cardiac Monitoring: NSR, 61 bpm, No ectopy. Laboratory studies: See below Imaging studies: Chest x-ray: Per my preliminary review no acute cardiopulmonary process. CT head/brain wo con CLINICAL HISTORY: Strokelike symptoms. HISTORY OF LYMPHOMA COMPARISON STUDY: No previous studies for comparison. TECHNIQUE: Axial CT of the brain is performed from the vertex to the skull base. IV contrast was not administered for this examination. A dose lowering technique was utilized adhering to the principles of ALARA. CT DOSE: FINDINGS: No intra or extra-axial mass lesions are visualized. There is no CT evidence of acute cortical infarction. There is no evidence of midline shift. There is no acute hemorrhage. No calvarial fractures are visualized. There are patchy white matter hypodensities likely on a small vessel basis. There is no evidence of pathologic ventricular dilatation. There is no evidence of acute sinusitis IMPRESSION: No acute intracranial findings CT angio head w con CLINICAL HISTORY: Stroke evaluation ACUTE STROKE LIKE SYMPTOMS TECHNIQUE: CT angiography of the head was performed in a dynamic helical fashion during intravenous administration of 118 cc of Optiray 320. MIP imaging was performed. A dose lowering technique was utilized adhering to the principles of ALARA. CT DOSE: 1191.14 mGy.cm COMPARISON STUDY: No previous studies for comparison. FINDINGS: There are no lesion suspicious for aneurysm. There are no major intracranial branch occlusions. The dural venous sinuses appear patent. There are atherosclerotic changes within the distal vertebral arteries and basilar with mild bilateral right vertebral artery stenoses and mild basilar artery stenosis. IMPRESSION: 1. No evidence of aneurysm 2. No evidence of dural venous sinus thrombosis 3. No evidence of major intracranial branch occlusion 4. Posterior circulation atherosclerotic disease with mild bilateral distal vertebral artery stenoses and mild basilar artery stenosis. CT angio neck with con CLINICAL HISTORY: Stroke evaluation COMPARISON STUDY: No previous studies for comparison. TECHNIQUE: CT angiography was performed from the aortic arch to the skull base. MIP imaging was performed. The patient was scanned in a dynamic helical fashion during intravenous administration of 2 118 cc of Optiray 320. A dose lowering technique was utilized adhering to the principles of ALARA. CT DOSE: Technique: CT angiogram of the carotid and vertebral arteries was obtained using intravenous contrast and 3-D reconstruction. NASCET criteria was utilized. Findings: There is a multi nodule thyroid goiter. The right carotid revealed no evidence of aneurysm and no evidence of dissection. There is no evidence of hemodynamic significant stenosis. The left carotid revealed no evidence of hemodynamic significant stenosis. There is no evidence of aneurysm. There is no evidence of dissection. There are mild bilateral distal vertebral artery stenoses. There is a mild basilar artery stenosis. There is no evidence of acute or dissection. There is no evidence of vertebral artery occlusion IMPRESSION: 1. No evidence of hemodynamically significant carotid stenosis 2. Atherosclerotic disease within the posterior circulation with mild bilateral distal vertebral artery stenoses on a mild basilar artery stenosis. Consultation(s): None HPI: The patient is a pleasant 78-year-old gentleman with a past medical history of CAD status post PCI on Brilinta, hypertension, mitral regurg, chronic ITP and non-Hodgkin's lymphoma, paroxysmal V. tach, rheumatoid arthritis, BPH and GERD who presents emergency department with episode of strokelike symptoms with difficulty with speech, generalized weakness and imbalance which began around 4 PM in the setting of having IVIG infusion for his ITP today with platelets of 47K having had taken his Brilinta this afternoon. Denies fevers, cough, nausea, vomiting, diarrhea, urinary symptoms. ROS: See above HPI for pertinent positives & negatives. A total of 10 systems reviewed and were otherwise negative. PAST MEDICAL HISTORY:See Below PAST SURGICAL HISTORY:See Below FAMILY HISTORY:See Below SOCIAL HISTORY:See Below HOME MEDICATIONS:See Below ALLERGIES:See Below VITALS:See Below PHYSICAL EXAMINATION: GENERAL: Awake, alert, well-appearing, in no distress HENT: Normocephalic, atraumatic. Oropharynx with dry mucous membranes and otherwise unremarkable. EYES: Normal conjunctiva. Sclera non-icteric. EOMI. No nystamgus. PEARRL. NECK: Supple. No nuchal rigidity. FROM. No JVD. RESPIRATORY: Clear to auscultation. CARDIAC: Regular rate, normal rhythm. Extremities warm and well perfused. Pulses equal. ABDOMEN: Soft, non-distended. No tenderness to palpation. No rebound or guarding. No masses. RECTAL: Deferred. MUSCULOSKELETAL: Chest examination reveals no tenderness. The back is symmetrical on inspection without obvious abnormality. There is no CVA tenderness to palpation. No joint edema. LOWER EXTREMITIES: Calves are equal size bilaterally and non-tender. No edema. No discoloration. NEURO: Subtle dysarthria but fluent speech. 5/5 strength and SILT x 4 extremities. Intact finger to nose and alternating palms. Unsteady gait. SKIN: No rash or jaundice noted. 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 Grader Required: No Beliefs That Will Affect Care: None Current Living Situation: Spouse Feels Safe at Home: Yes Smoking Status: Never smoker Do You Dip or Chew Tobacco: No ; Second Hand Exposure: Yes ( A CHILD) ; Hx Alcohol Use: Yes Alcohol type: wine and hard liquor Hx Substance Use: No Results & Data Vital Signs Vital Signs - 24 hr 05/22/19 21:48 05/22/19 23:20 05/22/19 23:21 Temperature 36.6 C Temperature Source Oral Pulse Rate 71 73 71 Pulse Rate from SpO2 Sensor 73 Respiratory Rate 16 25 H 20 Respiratory Effort / Characteristics Non-Labored Respiratory Depth Normal Blood Pressure 169/91 H 166/97 H 166/97 H Blood Pressure Mean 117 120 120 Pulse Oximetry 92 97 97 Oxygen Delivery Method Room Air Room Air Sepsis Recent Fever Within 48 Hours No Sepsis New/Unexplained Change in Mental Status No Sepsis Action Taken by Nursing No Action Required 05/23/19 01:05 Temperature Temperature Source Pulse Rate 58 L Pulse Rate from SpO2 Sensor Respiratory Rate 22 Respiratory Effort / Characteristics Respiratory Depth Blood Pressure 164/83 H Blood Pressure Mean 107 Pulse Oximetry Oxygen Delivery Method Sepsis Recent Fever Within 48 Hours Sepsis New/Unexplained Change in Mental Status Sepsis Action Taken by Nursing Laboratory Data Attestation: I reviewed the patient's lab results. Result diagrams: 05/22/19 22:11 05/22/19 22:11 Lab Results 05/22/19 05/22/19 05/22/19 Range/Units 22:11 22:11 22:11 WBC 16.83 H (4.8-10.8) K/uL RBC 4.21 L (4.7-6.1) M/uL Hgb 13.7 L (14.0-18.0) g/dL Hct 39.7 L (42-52) % MCV 94.3 (80-100) fL MCH 32.5 (25-34) pg MCHC 34.5 (32-36) g/dL RDW Std Deviation 51.1 H (36.4-46.3) fL RDW Coeff of Katarina 15.0 H (11.5-14.5) % Plt Count 81 L D (130-400) K/uL MPV 11.7 H (7.4-10.4) fL Immature Gran % (Auto) 0.3 % Neut % (Auto) 86.5 % Lymph % (Auto) 8.0 % Kershaw % (Auto) 5.2 % Eos % (Auto) 0.0 % Baso % (Auto) 0.0 % Immature Gran # (Auto) 0.05 H (0.00-0.02) K/uL Neut # (Auto) 14.55 H (1.4-6.5) K/uL Lymph # (Auto) 1.35 (1.2-3.4) K/uL [place]haw # (Auto) 0.88 H (0.11-0.59) K/uL Eos # (Auto) 0.00 (0-0.5) K/uL Baso # (Auto) 0.00 (0-0.2) K/uL Platelet Estimate Decreased L (Normal) PT 13.1 H (9.0-12.0) Seconds INR 1.3 H (0.9-1.1) APTT 24.3 (21.0-31.0) Seconds PTT Ratio 0.9 Sodium 134 L (136-145) mmol/L Potassium 4.1 (3.5-5.1) mmol/L Chloride 107 (98-107) mmol/L Carbon Dioxide 22 (21-32) mmol/L Anion Gap 5.0 (3-11) BUN 26 H (7-18) mg/dl Creatinine 1.10 (0.6-1.4) mg/dl Est Cr Clr Drug Dosing 49.1 ml/min Est GFR ( Amer) 73.6 Est GFR (Non-Af Amer) 63.5 BUN/Creatinine Ratio 23.4 H (10-20) Glucose 148 H (70-99) mg/dl POC Glucose (70-99) mg/dl Calcium 9.7 (8.5-10.1) mg/dl Magnesium 2.1 (1.8-2.4) mg/dl Total Bilirubin 0.7 (0.2-1) mg/dl AST 22 (15-37) U/L ALT 51 (12-78) U/L Alkaline Phosphatase 58 (45-117) U/L Troponin I 0.021 (0-0.045) ng/ml Total Protein 10.2 H (6.4-8.2) gm/dl Albumin 3.2 L (3.4-5.0) gm/dl Globulin 7.0 H (2.5-4.0) gm/dl Albumin/Globulin Ratio 0.5 L (0.9-2) Urine Color Urine Appearance (Clear) Urine pH (4.5-7.5) Ur Specific Hudson (1.000-1.030) Urine Protein (Negative) Urine Glucose (UA) (Negative) Urine Ketones (Negative) Urine Blood (Negative) Urine Nitrite (Negative) Urine Bilirubin (Negative) Urine Urobilinogen (Negative) Ur Leukocyte Esterase (Negative) Urine WBC (Auto) (0-5) /hpf Urine RBC (Auto) (0-4) /hpf U Hyaline Cast (Auto) (0-5) /lpf U Epithel Cells (Auto) (0-5) /lpf Urine Bacteria (Auto) (Negative) Blood Type Antibody Screen 03/19/20 03/19/20 03/19/20 Range/Units 22:22 22:23 22:29 WBC (4.8-10.8) K/uL RBC (4.7-6.1) M/uL Hgb (14.0-18.0) g/dL Hct (42-52) % MCV (80-100) fL MCH (25-34) pg MCHC (32-36) g/dL RDW Std Deviation (36.4-46.3) fL RDW Coeff of Katarina (11.5-14.5) % Plt Count (130-400) K/uL MPV (7.4-10.4) fL Immature Gran % (Auto) % Neut % (Auto) % Lymph % (Auto) % K[place]haw % (Auto) % Eos % (Auto) % Baso % (Auto) % Immature Gran # (Auto) (0.00-0.02) K/uL Neut # (Auto) (1.4-6.5) K/uL Lymph # (Auto) (1.2-3.4) K/uL [place]haw # (Auto) (0.11-0.59) K/uL Eos # (Auto) (0-0.5) K/uL Baso # (Auto) (0-0.2) K/uL Platelet Estimate (Normal) PT (9.0-12.0) Seconds INR (0.9-1.1) APTT (21.0-31.0) Seconds PTT Ratio Sodium (136-145) mmol/L Potassium (3.5-5.1) mmol/L Chloride (98-107) mmol/L Carbon Dioxide (21-32) mmol/L Anion Gap (3-11) BUN (7-18) mg/dl Creatinine (0.6-1.4) mg/dl Est Cr Clr Drug Dosing ml/min Est GFR ( Amer) Est GFR (Non-Af Amer) BUN/Creatinine Ratio (10-20) Glucose (70-99) mg/dl POC Glucose 148 H (70-99) mg/dl Calcium (8.5-10.1) mg/dl Magnesium (1.8-2.4) mg/dl Total Bilirubin (0.2-1) mg/dl AST (15-37) U/L ALT (12-78) U/L Alkaline Phosphatase (45-117) U/L Troponin I (0-0.045) ng/ml Total Protein (6.4-8.2) gm/dl Albumin (3.4-5.0) gm/dl Globulin (2.5-4.0) gm/dl Albumin/Globulin Ratio (0.9-2) Urine Color Yellow Urine Appearance Clear (Clear) Urine pH 5.5 (4.5-7.5) Ur Specific Hudson 1.020 (1.000-1.030) Urine Protein 1+ H (Negative) Urine Glucose (UA) Negative (Negative) Urine Ketones Negative (Negative) Urine Blood Negative (Negative) Urine Nitrite Negative (Negative) Urine Bilirubin Negative (Negative) Urine Urobilinogen Negative (Negative) Ur Leukocyte Esterase Negative (Negative) Urine WBC (Auto) 1-5 (0-5) /hpf Urine RBC (Auto) 0-4 (0-4) /hpf U Hyaline Cast (Auto) 0 (0-5) /lpf U Epithel Cells (Auto) 5-10 H (0-5) /lpf Urine Bacteria (Auto) Negative (Negative) Blood Type A Negative Antibody Screen NEGATIVE Administered Medications Potassium Chloride/Sodium Chloride (Normal Saline W/20 Meq Kcl) 20 meq in 1,000 mls @ 80 mls/hr IV .[id number] ERICK Stop: 06/22/19 02:14 Last Admin: 05/23/19 04:08 Dose: 80 mls/hr Documented by: [id number] Discontinued Medications Al Hydrox/Mg Hydrox/Simethicone (Maalox) Confirm Administered Dose 30 ml .ROUTE .STK-MED ONE Stop: 05/23/19 04:07 Last Admin: 05/23/19 04:08 Dose: 30 ml Documented by: [id number] Sodium Chloride (Nss 1000ml) 1,000 mls @ 999 mls/hr IV .[id number] ONE Stop: 05/22/19 23:15 Last Infusion: 05/22/19 23:32 Dose: 0 mls/hr Documented by: [id number] Admin: 05/22/19 22:30 Dose: 999 mls/hr Documented by: [id number] Ioversol (Optiray 320 125ml) 118 ml IV ONCE PRN PRN Reason: Interaction Checking Stop: 05/26/19 22:46 Last Admin: 05/22/19 22:48 Dose: 118 ml Documented by: [id number] Discharge Plan Visit Data *Final* Discharge Date/Time: 05/23/19 01:46 Chief Complaint: Neuro Symptoms/Deficit Stated Complaint: STROKE SYMPTOMS, BLURRED VISION & SPEACH ED Provider: Johnnie Cabral Discharge Problem: Stroke-like symptoms, Dysarthria, Aphasia, Unstable gait Patient Disposition: Admitted As Inpatient Discharge Instructions Interventions: ED Discharge Assessment Last Done: 05/23/19 01:46 Meds Home Medications and Allergies Home Medications Medication Instructions Recorded Confirmed Type acetaminophen [Tylenol Extra 1,000 mg PO Q6H PRN 02/23/19 05/22/19 History Strength] atorvastatin 40 mg tablet 40 mg PO DAILY 04/09/19 05/22/19 History metoprolol succinate 50 mg 50 mg PO DAILY 04/09/19 05/22/19 History tablet,extended release 24 hr ticagrelor 90 mg tablet 90 mg PO BID 04/09/19 05/22/19 History Allergies Allergy/AdvReac Type Severity Reaction Status Date / Time Bactrim Allergy Severe HIVES, Verified 07/27/17 10:29 INTERFERES WITH IMMUNE SYSTEM Cipro Allergy Severe MUSCLE Verified 07/27/17 10:29 PROBLEMS ciprofloxacin Allergy Severe MUSCLE Verified 05/22/19 23:01 PROBLEMS morphine Allergy Severe HALLUCINATI Verified 05/22/19 23:01 ONS sulfamethoxazole Allergy Severe HIVES, Verified 05/22/19 23:01 INTERFERES WITH IMMUNE SYSTEM trimethoprim Allergy Severe HIVES, Verified 05/22/19 23:01 INTERFERES WITH IMMUNE SYSTEM
[2019-05-22 22:47] LABS: Albumin Level 3.2 gm/dl (3.4-5.0); BUN Creatinine Ratio 23.4 (10-20); Calcium 9.7 mg/dl (8.5-10.1); Creatinine Clr Calc Pharmacy 49.1 ml/min; Est GFR (African American) 73.6; Est GFR (Non-African American) 63.5; Magnesium 2.1 mg/dl (1.8-2.4); Potassium 4.1 mmol/L (3.5-5.1)
[2019-05-22] MEDS ORDERED: OPTIRAY 320 125ml IV PRN (22:47)
[2019-05-22 22:52] LABS: Albumin Globulin Ratio 0.5 (0.9-2); Bilirubin,Total 0.7 mg/dl (0.2-1); Total Protein 10.2 gm/dl (6.4-8.2); Troponin I 0.021 ng/ml (0-0.045)
[2019-05-22 22:55] LABS: Hematocrit (blood only) 39.7 % (42-52); Hemoglobin 13.7 g/dL (14.0-18.0); Mean Corpuscular Hemoglobin 32.5 pg (25-34); Mean Corpuscular Hgb Conc 34.5 g/dL (32-36); Mean Corpuscular Volume 94.3 fL (80-100); Mean Platelet Volume 11.7 fL (7.4-10.4); Platelet Count 81 K/uL (130-400); RDW Standard Deviation 51.1 fL (36.4-46.3); Red Blood Count 4.21 M/uL (4.7-6.1); White Blood Count 16.83 K/uL (4.8-10.8)
--- NOTE | 2019-05-22 22:55 | CT Scan Report ---
CT head/brain wo con CLINICAL HISTORY: Strokelike symptoms. HISTORY OF LYMPHOMA COMPARISON STUDY: No previous studies for comparison. TECHNIQUE: Axial CT of the brain is performed from the vertex to the skull base. IV contrast was not administered for this examination. A dose lowering technique was utilized adhering to the principles of ALARA. CT DOSE: FINDINGS: No intra or extra-axial mass lesions are visualized. There is no CT evidence of acute cortical infarc tion. There is no evidence of midline shift. There is no acute hemorrhage. No calvarial fractures ar e visualized. There are patchy white matter hypodensities likely on a small vessel basis. There is no evidence of pathologic ventricular dilatation. There is no evidence of acute sinusitis IMPRESSION: No acute intracranial findings ACT 112: Negative or not required by law. Electronically signed by: Vahid Sheldon M.D. 05/22/2019 10:54 PM
[2019-05-22 22:56] LABS: Immature Granulocytes # (auto) 0.05 K/uL (0.00-0.02); Immature Granulocytes % (auto) 0.3 %; Lymphocytes # (auto) 1.35 K/uL (1.2-3.4); Monocytes # (auto) 0.88 K/uL (0.11-0.59); Monocytes % (auto) 5.2 %; Neutrophils # (auto) 14.55 K/uL (1.4-6.5); Neutrophils % (auto) 86.5 %; Platelet Estimate Decreased (Normal)
--- NOTE | 2019-05-22 23:03 | CT Scan Report ---
CT angio neck with con CLINICAL HISTORY: Stroke evaluation COMPARISON STUDY: No previous studies for comparison. TECHNIQUE: CT angiography was performed from the aortic arch to the skull base. MIP imaging was perfo rmed. The patient was scanned in a dynamic helical fashion during intravenous administration of 2 118 cc of Optiray 320. A dose lowering technique was utilized adhering to the principles of ALARA. CT DOSE: Technique: CT angiogram of the carotid and vertebral arteries was obtained using intravenous contrast and 3-D reconstruction. NASCET criteria was utilized. Findings: There is a multi nodule thyroid goiter. The right carotid revealed no evidence of aneurysm and no evidence of dissection. There is no evidenc e of hemodynamic significant stenosis. The left carotid revealed no evidence of hemodynamic significant stenosis. There is no evidence of an eurysm. There is no evidence of dissection. There are mild bilateral distal vertebral artery stenoses. There is a mild basilar artery stenosis. T here is no evidence of acute or dissection. There is no evidence of vertebral artery occlusion IMPRESSION: 1. No evidence of hemodynamically significant carotid stenosis 2. Atherosclerotic disease within the posterior circulation with mild bilateral distal vertebral denae ry stenoses on a mild basilar artery stenosis. ACT 112: Negative or not required by law. Electronically signed by: Vahid Sheldon M.D. 05/22/2019 11:02 PM
--- NOTE | 2019-05-22 23:04 | CT Scan Report ---
CT angio head w con CLINICAL HISTORY: Stroke evaluation ACUTE STROKE LIKE SYMPTOMS TECHNIQUE: CT angiography of the head was performed in a dynamic helical fashion during intravenous a dministration of 118 cc of Optiray 320. MIP imaging was performed. A dose lowering technique was util ized adhering to the principles of ALARA. CT DOSE: 1191.14 mGy.cm COMPARISON STUDY: No previous studies for comparison. FINDINGS: There are no lesion suspicious for aneurysm. There are no major intracranial branch occlusi ons. The dural venous sinuses appear patent. There are atherosclerotic changes within the distal vert ebral arteries and basilar with mild bilateral right vertebral artery stenoses and mild basilar arter y stenosis. IMPRESSION: 1. No evidence of aneurysm 2. No evidence of dural venous sinus thrombosis 3. No evidence of major intracranial branch occlusion 4. Posterior circulation atherosclerotic disease with mild bilateral distal vertebral artery stenoses and mild basilar artery stenosis. ACT 112: Negative or not required by law. Electronically signed by: Vahid Sheldon M.D. 05/22/2019 11:03 PM
[2019-05-22 23:08] LABS: INR 1.3 (0.9-1.1); Partial Thromboplastin Ratio 0.9; Partial Thromboplastin Time 24.3 Seconds (21.0-31.0); Prothrombin Time 13.1 Seconds (9.0-12.0)
[2019-05-22 23:22] LABS: Appearance Urine Clear (Clear); Bacteria Urine Automated Negative (Negative); Bilirubin Urine Negative (Negative); Blood Urine Negative (Negative); Cast Urine Automated 0 /lpf (0-5); Color Urine Yellow; Glucose Urine UA Negative (Negative); Ketones Urine Negative (Negative); Leukocyte Esterase Urine Negative (Negative); Nitrite Urine Negative (Negative); Protein Urine 1+ (Negative); RBC Urine Automated 0-4 /hpf (0-4); Urobilinogen Urine Negative (Negative); pH Urine 5.5 (4.5-7.5)
--- NOTE | 2019-05-23 01:12 | History & Physical Report ---
Date of Service May 23, 2019 Assessment & Plan (1) CAD (coronary artery disease): Noelle Tamayo is a 78-year-old male with a past medical history of ITP, lymphoma, BPH, hypertension GERD, and rheumatoid arthritis who presents today for about 5 hours of strokelike symptoms Strokelike symptoms Patient with bilateral lower limb awkwardness, mild dysarthria, and mild dysgraphia Neuro exam currently mostly normal with intact cranial nerves, although patient did exhibit some mild right-sided pronator drift and poor proprioception of right hand With patient's history of heart attack shortly after starting IVIG and improving platelet count is possible to postulate that thrombocytopenia was protective against cardiovascular disease in this patient and as platelet counts improve he is at high risk, although patient seems to have a severe burden of coronary artery atherosclerosis whereas CTA head neck appears to show only mild atherosclerotic disease in the posterior circulation. Patient already on atorvastatin Brilinta and aspirin CT head showed no evidence of bleed currently, patient outside window of TPA administration Infectious causes thought to be lower on the differential as patient without infective symptoms, no headache no neck stiffness, and neuro symptoms-the most part been steadily improving. However if patient were to develop these symptoms LP could be considered Also differential is reaction to IVIG infusion, dizziness chills and fatigue are common side effects of IVIG infusion, could be causing some of his symptoms, on review asthenia and limb pain and muscle spasm affect up to 15% of patients receiving IVIG We will get MRI to further evaluate for ischemia Neuro consult PT OT and speech therapy ordered No history of a fib though he does have history of paroxysmal v tach will place on telemetry overnight Patient n.p.o. for now ITP Patient just received IVIG, patient also on steroids currently Follows with heme-onc are also following patient for his low-grade lymphoma with bone marrow involvement Coronary artery disease Detectable but within normal limit troponin, no chest pain no shortness of breath ECG not suspicious for new ST changes Very little concern for acute ischemia DVT prophylaxis: Lovenox Fluids/electrolytes/nutrition: N.p.o. pending speech therapy evaluation, placed on maintenance fluids Disposition: Admit to telemetry for further rhythm monitoring, MRI and neurology evaluation Full code (2) Elevated troponin I level: (3) Chronic ITP (idiopathic thrombocytopenia): (4) GERD (gastroesophageal reflux disease): (5) BPH (benign prostatic hyperplasia): (6) Lymphoma: (7) Rheumatoid arthritis: (8) Hypertension: (9) Stroke-like episode: History of Present Illness Chief Complaint: Stroke like symptoms Primary Care Provider: Vani Mauro Noelle Tamayo is a very pleasant 78 year old man with a past medical history of low-grade non-Hodgkin's lymphoma (follows with heme-onc, 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 Patient was getting a IVIG infusion today at the cancer center when he went to stand up after his infusion he found that his legs were very wobbly and unsteady. He thinks maybe the right leg was slightly more unsteady than the left but they both have the same sensation of being wobbly. He chalked this up to being sitting for so long, after he returned home he went to lay down and take a nap but did not sleep well the night before secondary to being on steroids and feeling wired, he continued to feel this way and after about an hour got up out of bed to go to the bathroom. While stepping to go the bathroom he said he had the profound sensation that he was not under control of his legs both of his legs are out of his control and unsteady he staggered his way down the hallway back to bed before his decided he should come in to the emergency department. After arrival to emergency department he felt that his walking actually improved somewhat, however when he went to go sign his name he felt that his normally neat handwriting has become incredibly messy and he knew something had to be wrong. He also feels as though his voice is not his own right now, as if his tongue is thicker and he cannot form his words as clearly as he would like to. Patient has any other symptoms, he has no headache no chest pain no shortness of breath, no abdominal symptoms no abdominal pain no nausea no vomiting no diarrhea no constipation, he is able to eat and swallow just fine, denies any difficulty going the bathroom denies any leg swelling. On admission to the emergency department patient was found to have vital signs within normal limits and had only the subjective complaint about his words sounding slightly mispronounce though they did not strike ER provider as being out of the ordinary without knowing him. CT of the head and neck did not reveal any acute hemorrhage or ischemic abnormalities or severe stenoses, however did showsome posterior circulation atherosclerotic disease with mild bilateral distal vertebral artery stenosis and mild basilar artery stenosis. Lab work significant for elevated white count of 16.3, hemoglobin 13.7 platelet count of 81, detectable troponin 0.021, but within normal limits. Decision was made to admit patient to hospital for rule out of CVA. Patient lives with , he is a non-smoker occasional drinker no recreational drug use. He has been feeling quite well recently, no fevers chills, no sick contacts no cough no travel. Allergies Allergy/AdvReac Type Severity Reaction Status Date / Time Bactrim Allergy Severe HIVES, Verified 07/27/17 10:29 INTERFERES WITH IMMUNE SYSTEM Cipro Allergy Severe MUSCLE Verified 07/27/17 10:29 PROBLEMS ciprofloxacin Allergy Severe MUSCLE Verified 05/22/19 23:01 PROBLEMS morphine Allergy Severe HALLUCINATI Verified 05/22/19 23:01 ONS sulfamethoxazole Allergy Severe HIVES, Verified 05/22/19 23:01 INTERFERES WITH IMMUNE SYSTEM trimethoprim Allergy Severe HIVES, Verified 05/22/19 23:01 INTERFERES WITH IMMUNE SYSTEM Home Medications Home Medications Medication Instructions Recorded Confirmed Type acetaminophen [Tylenol Extra 1,000 mg PO Q6H PRN 02/23/19 05/22/19 History Strength] aspirin [Ecotrin Low Strength] 81 mg PO QAM #0 tab 02/25/19 05/22/19 Rx nitroglycerin [Nitrostat] 0.4 mg SUBLINGUAL UD PRN #30 tab 02/25/19 05/22/19 Rx finasteride 5 mg tablet 5 mg PO QPM #90 tab 03/20/19 05/22/19 Rx tamsulosin 0.4 mg capsule 0.4 mg PO QPM #90 cap 03/20/19 05/22/19 Rx atorvastatin 40 mg tablet 40 mg PO DAILY 04/09/19 05/22/19 History metoprolol succinate 50 mg 50 mg PO DAILY 04/09/19 05/22/19 History tablet,extended release 24 hr ticagrelor 90 mg tablet 90 mg PO BID 04/09/19 05/22/19 History losartan 25 mg tablet 25 mg PO DAILY #90 tab 05/15/19 05/22/19 Rx Past Med/Surg History Medical History BPH (benign prostatic hyperplasia) Chronic ITP (idiopathic thrombocytopenia) GERD (gastroesophageal reflux disease) MILD Hypertension Kidney stones 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 Pt denied any abnormal bleeding or bruising at heme appt 04/05/18 Surgical History History of adenoidectomy History of appendectomy History of colonoscopy History of cystoscopy STONE REMOVAL History of lithotripsy History of tonsillectomy History of tooth extraction History of total hip arthroplasty RT/LEFT Family History Other Hypertension Kidney disease Social History Preferred Language: Y[place] Communication Ability: Effective Mathematical Statistician Required: No Beliefs That Will Affect Care: None Current Living Situation: Spouse Feels Safe at Home: Yes Smoking Status: Never smoker Second Hand Exposure: Yes ( A CHILD) ; Hx Alcohol Use: Yes Alcohol type: wine and hard liquor Hx Substance Use: No Review of Systems Review of Systems: Constitutional: Patient denies fever chills fatigue weakness, fatigue. Patient does have insomnia while being on steroids Eyes: No change in visual acuity ENMT: No complaints Respiratory: No shortness of breath no breathing difficulties Cardiovascular: No chest pain, no palpitations, no dyspnea, no leg swelling GI: No abdominal pain no nausea no diarrhea no constipation : No new urinary symptoms Neuro: As above MSK: Unsteady legs as above, feels like his strength is good no pain Physical Exam Physical Exam: Constitutional: Mr. Tamayo is a well-appearing 78-year-old man in no apparent distress lying in bed at bedside Eyes: Pupils equal round reactive to light and accommodation, extraocular muscle movements intactBilaterally ENMT: Externally normal appearance Neck: Supple, no masses no lymph nodes palpable Respiratory: Lung sounds vesicular throughout, good air entry globally, she expansion equal bilaterally, no acute respiratory distress Cardiovascular: Heart sounds dual no murmurs rubs skips or gallops, peripheral pulses intact bilaterally Gastrointestinal: Abdomen soft nontender no masses palpable Neuro: Cranial nerves II through XII examined and equal bilaterally, patient feels his voice is slightly muffled, but has good control of her tongue movements, sensation strength intact bilateral upper and lower extremities, patient slightly slow with dysdiadochokinesia testing, but no obvious right side versus left side dominance. Patient with slight pronator drift of right side and proprioception is more acute left upper extremity reflexes equal bilaterally Results & Data Vital Signs (Past 12 Hours) Vital Signs Temp Pulse Resp BP Pulse Ox 05/23/19 01:05 58 L 22 164/83 H 05/22/19 23:21 71 20 166/97 H 97 05/22/19 23:20 73 25 H 166/97 H 97 05/22/19 21:48 36.6 C 71 16 169/91 H 92 Supervising Physician Co-Signing Physician Notes Attending addendum: I have physically seen this patient, have supervised the medical residents activities, and agree with the H&P unless as otherwise noted. Assessment and Plan: Strokelike symptoms- Lower extremity weakness/dysarthria The patient will be admitted to telemetry for serial cardiac enzymes, serial EKG's, cardiac rhythm monitoring. Ischemic stroke without TPA order set. Continue atorvastatin, Brilinta and aspirin. CT head negative for acute event. CTA head/neck negative. MRI brain without contrast ordered. Difficult balance between treating ITP with IVIG and antiplatelet medications of Brilinta and aspirin to protect the heart.. Remainder of orders and notations as noted. Resident Activity Tracking Resident Involvement: Resident Care Provided Care Provided: Adult Hospital Medicine (1) CAD (coronary artery disease) Associated angina: with unspecified angina Coronary Disease-Associated Artery/Lesion type: unspecified vessel or lesion type [place] vs. transplanted heart: [place] heart Qualified Code(s): I25.119 - Atherosclerotic heart disease of [place] coronary artery with unspecified angina pectoris
[2019-05-23] MEDS ORDERED: ONDANSETRON INJ 2 MG/ML 2 ML VIAL IV PRN (02:15)
[2019-05-23] MEDS ORDERED: POLYETHYLENE (MIRALAX) 17 GM PACK PO PRN (02:15)
[2019-05-23] MEDS ORDERED: ACETAMINOPHEN 500 MG TAB PO PRN (02:15)
[2019-05-23] MEDS ORDERED: PHARMACIST DISCHARGE MED REC CONSULT PRN (02:15)
[2019-05-23] MEDS ORDERED: NITROGLYCERIN SL 0.4 MG/TAB TAB SL PRN (02:15)
[2019-05-23] MEDS ORDERED: NSS + 20MEQ KCL 20 MEQ/1,000 ML BAG IV SCH (02:15)
[2019-05-23] MEDS ORDERED: ALUMINUM/MAGNESIUM SUSP 30 ML UDC PO PRN (04:01)
[2019-05-23] MEDS ORDERED: ALUMINUM/MAGNESIUM SUSP 30 ML UDC ONE (04:06)
--- NOTE | 2019-05-23 06:28 | XRay Report ---
XR chest 1V portable CLINICAL HISTORY: stroke sx mental status change COMPARISON STUDY: 02/25/2019 FINDINGS: The bones soft tissues and hemidiaphragms are normal. The cardiomediastinal silhouette is n ormal. The lungs are clear. The pulmonary vasculature is normal. IMPRESSION: Negative chest. ACT 112: Negative or not required by law. The above report was generated using voice recognition software. It may contain grammatical, syntax or spelling errors. Electronically signed by: Tomy Pedroza M.D. 05/23/2019 6:27 AM
--- NOTE | 2019-05-23 07:00 | Magnetic Resonance Report ---
MRI OF THE BRAIN WITHOUT CONTRAST CLINICAL HISTORY: Stroke evaluation. Lymphoma. COMPARISON STUDY: Head CT and CTA of the head May 22, 2019. TECHNIQUE: Utilizing a 1.5 Janna magnet and dedicated coil, multiplanar, multiecho imaging of the bra in was performed without IV contrast. FINDINGS: Note is made of a small focus of restricted diffusion within the left anterior [place] shown o n diffusion-weighted sequence . This measures 1.1 cm in extent. There is no mass effect or hem orrhage. No additional foci of restricted diffusion are present. The basilar cisterns are patent. The re are no extra axial collections. There is no intracranial mass on this unenhanced examination. Mild atrophy and presumed small vessel disease is noted. Marrow signal within portions of the calvarium, skull base and upper cervical spine is mildly diminished on the T1-weighted sequence. IMPRESSION: 1. Small acute infarct within the left anterior [place]. No mass effect or hemorrhage. 2. Diminished marrow signal which suggests a marrow replacement/proliferative process and may be rela lia to lymphoma. 3. Mild atrophy and moderate small vessel disease. ACT 112: Negative or not required by law. Electronically signed by: Lucio Wooten M.D. 05/23/2019 6:59 AM
--- NOTE | 2019-05-23 07:35 | Electrocardiogram Report ---
Test Reason : Blood Pressure : / mmHG Vent. Rate : 061 BPM Atrial Rate : 061 BPM P-R Int : 148 ms QRS Dur : 094 ms QT Int : 436 ms P-R-T Axes : 038 -21 -27 degrees QTc Int : 438 ms Normal sinus rhythm Moderate voltage criteria for LVH, may be normal variant Inferior infarct (cited on or before 17-FEB-2017) Abnormal ECG When compared with ECG of 28-FEB-2019 10:47, Vent. rate has decreased BY [address] no longer elevated in Inferior leads ST no longer depressed in Anterolateral leads Confirmed by Je Sorenson ([id number]) on 05/23/2019 7:34:32 AM Referred By: REFERRED SELF Confirmed By:Je Sorenson
[2019-05-23 07:36] LABS: Hematocrit (blood only) 36.7 % (42-52); Hemoglobin 12.6 g/dL (14.0-18.0); Mean Corpuscular Hemoglobin 31.9 pg (25-34); Mean Corpuscular Hgb Conc 34.3 g/dL (32-36); Mean Corpuscular Volume 92.9 fL (80-100); Platelet Count 83 K/uL (130-400); RDW Standard Deviation 50.8 fL (36.4-46.3); Red Blood Count 3.95 M/uL (4.7-6.1); White Blood Count 15.63 K/uL (4.8-10.8)
[2019-05-23 07:37] LABS: Basophils # (auto) 0.01 K/uL (0-0.2); Basophils % (auto) 0.1 %; Immature Granulocytes # (auto) 0.04 K/uL (0.00-0.02); Immature Granulocytes % (auto) 0.3 %; Lymphocytes # (auto) 1.91 K/uL (1.2-3.4); Lymphocytes % (auto) 12.2 %; Monocytes # (auto) 0.82 K/uL (0.11-0.59); Monocytes % (auto) 5.2 %; Neutrophils # (auto) 12.85 K/uL (1.4-6.5); Neutrophils % (auto) 82.2 %
[2019-05-23 07:40] LABS: BUN Creatinine Ratio 22.7 (10-20); Calcium 8.8 mg/dl (8.5-10.1); Creatinine Clr Calc Pharmacy 52.5 ml/min; Est GFR (African American) 79.7; Est GFR (Non-African American) 68.8; Potassium 4.2 mmol/L (3.5-5.1)
[2019-05-23 08:04] LABS: Estimated Average Glucose 97 mg/dl
[2019-05-23] MEDS ORDERED: METOPROLOL SUCC 50MG EXT REL TAB PO SCH (09:00)
[2019-05-23] MEDS ORDERED: FAMOTIDINE 10 MG TABLET PO SCH (09:00)
[2019-05-23] MEDS ORDERED: ENOXAPARIN INJ 40 MG/0.4 ML SYR SQ SCH (09:00)
[2019-05-23] MEDS ORDERED: TICAGRELOR 90 MG TAB PO SCH (09:00)
[2019-05-23] MEDS ORDERED: ASPIRIN 81 MG ECTAB PO SCH (09:00)
[2019-05-23] MEDS ORDERED: LOSARTAN POTASSIUM 25 MG TAB PO SCH (09:00)
[2019-05-23] MEDS ORDERED: ATORVASTATIN 40 MG TAB PO SCH (09:00)
--- NOTE | 2019-05-23 12:32 | Neurology Consultation ---
Date of Consultation May 23, 2019 Assessment & Plan (1) Left pontine stroke: Acute left pontine stroke resulting in a mild right hemiparesis and lingual dysarthria. Patient's stroke occurs in the context of receiving IVIG for treatment of ITP. It is notable that his CT angiography of the head and neck does reveal mild atherosclerotic disease of the distal vertebral and basilar arteries thus potentially increasing his risk for thromboembolic events in the posterior circulation while receiving IVIG. Patient does seem to be neurologically stable this morning and his deficits are fortunately on the mild end of the spectrum. He will still likely benefit from some rehab. Patient lamar uld continue with daily low-dose aspirin and Brilinta. Patient should continue with atorvastatin as well. His blood pressure has been modestly elevated recently. This issue will need some monitoring. Would like patient's blood pressure between 140 and 160 mmHg with more gradual reductions on an ongoing basis, likely in the outpatient setting. Patient's management is of course further complicated by his ITP, need for antiplatelet therapy, and probability that he will no longer be able to receive IVIG. See discussion below. (2) Chronic ITP (idiopathic thrombocytopenia): ITP. Discussed with hematology oncology this morning at bedside. As above, I agree that IVIG probably contributed to this patient's recent ischemic pontine stroke. He was found to have some underlying mild atherosclerotic disease of the vertebrobasilar system, however, which may have also contributed to this issue. Also, this patient's GA that occurred this past February in the context of IVIG treatment was further complicated by underlying coronary artery disease for which the patient underwent stenting and is on dual antiplatelet therapy. At this point, this patient will likely no longer be able to receive IVIG treatments for his ITP. In speaking with hematology, it sounds like splenectomy will need to be recommended. This surgery will likely be essential/necessary as his platelet count is expected to drop over the next month or so. Assuming this patient remains neurologically stable, I think proceeding with splenectomy in this timeframe will be reasonable. Would recommend this procedure be done at [facility] in light of potential need for neuro critical care services. Please feel free to contact me if I may be of further assistance. History of Present Illness Reason for Consultation: Stroke Requesting Physician: Lucio Myles MD Attending Physician: Bernabe Garcia MD History of Present Illness The patient is a 78-year-old male with a chief complaint of right leg weakness and slurred speech. His symptoms began yesterday afternoon, initially characterized as a feeling of subtle unsteadiness with the right leg only and occurring while receiving an IVIG infusion for treatment of ITP. The patient apparently returned home and took a nap. However, about an hour later the weakness had progressed and was associated with some slurred speech. He is also aware of some mild weakness affecting the right upper limb. He denies experiencing any diplopia, vertigo, or headache. No prior history of stroke or TIA. Past medical history is notable for myocardial infarction occurring this past February for which he underwent PCI/stenting at [facility]. Patient has been following with Dr. Jacobo Dennison, hematology oncology for ITP diagnosed 2 years ago. Initially treated with Rituxan, followed by IVIG. His GA may have been an IVIG associated complication although he does have significant coronary atherosclerotic disease as well. A CT of the head completed yesterday was negative for hemorrhage or acute process. A CT angiogram of the head and neck revealed posterior circulation atherosclerotic disease with mild bilateral distal vertebral artery stenoses and mild basilar artery stenosis. A brain MRI reveals a small acute infarct within the left anterior [place]. Imaging described in further detail below. Patient has been taking both daily low-dose aspirin, Brilinta, and atorvastatin. He has been seen by hematology oncology during this hospitalization. He continues to have mild right-sided weakness and slurred speech but is able to ambulate without assistance. Additional details as below. Allergies Allergy/AdvReac Type Severity Reaction Status Date / Time Bactrim Allergy Severe HIVES, Verified 07/27/17 10:29 INTERFERES WITH IMMUNE SYSTEM Cipro Allergy Severe MUSCLE Verified 07/27/17 10:29 PROBLEMS ciprofloxacin Allergy Severe MUSCLE Verified 05/22/19 23:01 PROBLEMS morphine Allergy Severe HALLUCINATI Verified 05/22/19 23:01 ONS sulfamethoxazole Allergy Severe HIVES, Verified 05/22/19 23:01 INTERFERES WITH IMMUNE SYSTEM trimethoprim Allergy Severe HIVES, Verified 05/22/19 23:01 INTERFERES WITH IMMUNE SYSTEM Home Medications Home Medications Medication Instructions Recorded Confirmed Type acetaminophen [Tylenol Extra 1,000 mg PO Q6H PRN 02/23/19 05/22/19 History Strength] aspirin [Ecotrin Low Strength] 81 mg PO QAM #0 tab 02/25/19 05/22/19 Rx nitroglycerin [Nitrostat] 0.4 mg SUBLINGUAL UD PRN #30 tab 02/25/19 05/22/19 Rx finasteride 5 mg tablet 5 mg PO QPM #90 tab 03/20/19 05/22/19 Rx tamsulosin 0.4 mg capsule 0.4 mg PO QPM #90 cap 03/20/19 05/22/19 Rx atorvastatin 40 mg tablet 40 mg PO DAILY 04/09/19 05/22/19 History metoprolol succinate 50 mg 50 mg PO DAILY 04/09/19 05/22/19 History tablet,extended release 24 hr ticagrelor 90 mg tablet 90 mg PO BID 04/09/19 05/22/19 History losartan 25 mg tablet 25 mg PO DAILY #90 tab 05/15/19 05/22/19 Rx Patient History Medical History BPH (benign prostatic hyperplasia) Chronic ITP (idiopathic thrombocytopenia) GERD (gastroesophageal reflux disease) MILD Hypertension Kidney stones 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 Pt denied any abnormal bleeding or bruising at heme appt 04/05/18 Surgical History History of adenoidectomy History of appendectomy History of colonoscopy History of cystoscopy STONE REMOVAL History of lithotripsy History of tonsillectomy History of tooth extraction History of total hip arthroplasty RT/LEFT Family History Other Hypertension Kidney disease Social History Preferred Language: Belarusian Communication Ability: Effective Stress Analyst Required: No Beliefs That Will Affect Care: None Current Living Situation: Spouse Feels Safe at Home: Yes Smoking Status: Never smoker Do You Dip or Chew Tobacco: No ; Second Hand Exposure: Yes ( A CHILD) ; Hx Alcohol Use: Yes Alcohol type: wine and hard liquor Hx Substance Use: No Review of Systems Constitutional: no fever and no chills Eyes: no blind spots and no diplopia Ear, Nose, Mouth, Throat: no hearing loss Respiratory: no cough and no dyspnea Cardiovascular: no chest pain and no palpitations Gastrointestinal: no nausea and no vomiting Genitourinary: no urinary incontinence Musculoskeletal: no neck pain and no myalgia Integumentary: no rash and no lesions Neurologic: as per Subjective / HPI Psychiatric: no depression and no anxiety Hematologic / Lymphatic: + easy bruising Physical Exam Physical Exam: The patient is a well-developed, well-nourished elderly male. He is alert and fully oriented. Recent and remote memory intact. Attention and concentration normal. Patient exhibits normal spontaneous speech pattern. He is able to name objects and repeat phrases. Patient exhibits mild lingual dysarthria. Patient exhibits an age-appropriate fund of knowledge and normal comprehension of vocabulary. Visual june full to confrontation. Visual acuity normal. Pupils equal round react to light and accommodation. Eye movements normal. Facial sensation intact. There is mild weakness of the right lower facial musculature. Hearing intact bilaterally. Palate elevates to midline. Shoulder shrug intact. Tongue protrudes to midline. Sensation intact all modalities in all 4 limbs. Deep tendon reflexes slightly increased for the right arm and leg as compared to the left. Right plantar response upgoing, left plantar response downgoing. There is mild dysmetria [id number] and [id number] on the right, none for the left. Ophthalmoscopic examination reveals normal-appearing optic disks and posterior segments. No papilledema or hemorrhages. Carotid pulses normal bilaterally, no bruits to auscultation. Gait is cautious appearing. Not grossly hemiparetic. Patient exhibits mild weakness for the right arm and leg. He is intact grasp function for the right hand. Strength for the right arm and leg at least 4 out of 5. There is a fix on the right with arm roll. There is a very mild right upper extremity pronator drift as well. Muscle tone normal throughout. There is no atrophy. No abnormal movements observed. Results & Data Vital Signs (Past 12 Hours) Vital Signs Temp Pulse Pulse Resp BP BP BP 05/23/19 11:16 36.3 C L 58 L 16 174/80 H 05/23/19 08:00 51 L 05/23/19 07:11 36.4 C L 65 16 121/66 05/23/19 03:55 36.4 C L 57 L 17 158/79 H 05/23/19 02:00 36.4 C L 60 52 L 18 176/92 H 05/23/19 01:30 64 22 139/92 05/23/19 01:05 58 L 22 164/83 H Pulse Ox Pulse Ox 05/23/19 11:16 97 05/23/19 08:00 05/23/19 07:11 97 05/23/19 03:55 95 05/23/19 02:00 97 97 05/23/19 01:30 05/23/19 01:05 Laboratory Results WBC 15.63, hemoglobin 12.6, hematocrit 36.7, platelet count 83, sodium 139, potassium 4.2, BUN 23, creatinine 1.03, glucose 121, hemoglobin A1c 5.0, troponin 0 0.038, triglycerides 55, cholesterol 83, LDL 29, VLDL 11, HDL [address] of the head is negative for hemorrhage or acute process. There is mild microvascular ischemic change. I reviewed the images as well as the radiologist's interpretation of this test. A CT angiogram of the head and neck reveals posterior circulation atherosclerotic disease with mild bilateral distal vertebral artery stenosis and mild basilar artery stenosis. MRI of the brain reveals a small acute infarct within the left anterior [place], no mass-effect or hemorrhage. There is mild atrophy and moderate small vessel ischemic change. I reviewed the images as well as the radiologist's interpretation of this test. An electrocardiogram reveals a normal sinus rhythm, 61 bpm. An echocardiogram completed February 27, 2019 revealed normal left ventricular size and systolic function, ejection fraction 55 to 60%, there was akinesis of the inferolateral wall and mild concentric left ventricular hypertrophy. There was no evidence of atrial septal defect. PFO not excluded. Coding Level of Care Code 32463 Initial In Care Lvl 3 Diagnoses Left pontine stroke I63.50 Chronic ITP (idiopathic thrombocytopenia) D69.3
[2019-05-23] MEDS ORDERED: STROKE PATIENT DISCHARGE STA (13:53)
--- NOTE | 2019-05-23 16:50 | Discharge Summary ---
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 Patient was getting a IVIG infusion today at the cancer center when he went to stand up after his infusion he found that his legs were very wobbly and unsteady. He thinks maybe the right leg was slightly more unsteady than the left but they both have the same sensation of being wobbly. He chalked this up to being sitting for so long, after he returned home he went to lay down and take a nap but did not sleep well the night before secondary to being on steroids and feeling wired, he continued to feel this way and after about an hour got up out of bed to go to the bathroom. While stepping to go the bathroom he said he had the profound sensation that he was not under control of his legs both of his legs are out of his control and unsteady he staggered his way down the hallway back to bed before his decided he should come in to the emergency department. After arrival to emergency department he felt that his walking actually improved somewhat, however when he went to go sign his name he felt that his normally neat handwriting has become incredibly messy and he knew something had to be wrong. He also feels as though his voice is not his own right now, as if his tongue is thicker and he cannot form his words as clearly as he would like to. Patient has any other symptoms, he has no headache no chest pain no shortness of breath, no abdominal symptoms no abdominal pain no nausea no vomiting no diarrhea no constipation, he is able to eat and swallow just fine, denies any difficulty going the bathroom denies any leg swelling. On admission to the emergency department patient was found to have vital signs within normal limits and had only the subjective complaint about his words sounding slightly mispronounce though they did not strike ER provider as being out of the ordinary without knowing him. CT of the head and neck did not reveal any acute hemorrhage or ischemic abnormalities or severe stenoses, however did showsome posterior circulation atherosclerotic disease with mild bilateral distal vertebral artery stenosis and mild basilar artery stenosis. Lab work significant for elevated white count of 16.3, hemoglobin 13.7 platelet count of 81, detectable troponin 0.021, but within normal limits. Decision was made to admit patient to hospital for rule out of CVA. Patient lives with , he is a non-smoker occasional drinker no recreational drug use. He has been feeling quite well recently, no fevers chills, no sick contacts no cough no travel. Principal Diagnosis Stroke in left anterior [place] Discharge Exam Constitutional WD/WN, vitals as above Eyes EOM intact bilaterally; no conjunctival abnormality ENMT external ear and nose normal, oropharynx normal Neck trachea midline, no thyromegaly normal visual inspection Respiratory normal respiratory effort, lungs clear to auscultation no respiratory distress Cardiovascular RRR, no murmur, no edema Gastrointestinal (Abdomen) Inspection/Auscultation: abdomen normal to inspection; abdomen not distended Musculoskeletal no cyanosis or clubbing, extremities motor strength 5/5 Skin no rashes, warm and dry Neurologic moves all extremities (Mild ataxia in the right arm) and awake Speech / Cognition: + abnormal speech (Mild slurred speech) Psychiatric Orientation: alert, oriented to person and cooperative Discharge Data Allergies Allergy/AdvReac Type Severity Reaction Status Date / Time Bactrim Allergy Severe HIVES, Verified 07/27/17 10:29 INTERFERES WITH IMMUNE SYSTEM Cipro Allergy Severe MUSCLE Verified 07/27/17 10:29 PROBLEMS ciprofloxacin Allergy Severe MUSCLE Verified 05/22/19 23:01 PROBLEMS morphine Allergy Severe HALLUCINATI Verified 05/22/19 23:01 ONS sulfamethoxazole Allergy Severe HIVES, Verified 05/22/19 23:01 INTERFERES WITH IMMUNE SYSTEM trimethoprim Allergy Severe HIVES, Verified 05/22/19 23:01 INTERFERES WITH IMMUNE SYSTEM Consultations 05/22/19 23:31 ED Decision to Admit Stat 05/23/19 02:15 Consult Case Management - Discharge Planning Routine Consult Neurology Routine Ordered Studies 05/22/19 22:13 CT angio head w con Stat CT angio neck with con Stat CT head/brain wo con Stat 05/23/19 02:15 MR brain wo con Routine Hospital Course (1) Left pontine stroke: MRI on 05/21 showed acute left pontine stroke resulting in a mild right hemiparesis and lingual dysarthria. Luckily his symptoms were resolving by the afternoon of discharge. - Patient's stroke occurs in the context of receiving IVIG for treatment of ITP. - Continue with daily low-dose aspirin, Brilinta, and atorvastatin - Recommend his BP control -> His was mildly elevated in the hospital at time, up to 175/80, though this returned to 120/65 on its own. (2) Chronic ITP (idiopathic thrombocytopenia): Has tried a variety of medications and failed them all. Concern that the IVIg is associated with his OH and now his CVA. Plan to follow up with [facility] for admission, evaluation for splenectomy, and splenectomy while his platelets are high enough. - Following with Dr. Dennison. Total Time Total Time Spent Total Time Spent (In Minutes): 35 Discharge Plan Discharge Items Patient Disposition: Home - Self-Care Reason For Visit: STROKE LIKE SYMPTOMS Discharge Diagnosis: Stroke Activity: Resume your previous activity Non-emergency contact: Primary Care Provider Call non-emergency contact if: your symptoms worsen and your temperature is above 101 Follow-up/Referrals: Jacobo Dennison [Physician] - (Please follow up with Dr. Dennison and the [facility] as you will likely need a splenectomy. attempted to schedule with Dr. Dennison and we were unable to reach him. please call him at your earliest convenience if you do not already have an appointment.) Vani Garcia [Primary Care Provider] - (DR. GARCIA'S OFFICE WILL CALL YOU WITH AN APPT DATE AND TIME ONCE THEY HAVE THEIR SCHEDULE FIGURED OUT.) Diet: Heart Healthy Addtl Attending Provider Instructions: You were admitted to the hospital with a stroke. When you receive the IVIg for your low platelets it appears that your blood then swings in the wrong direction and becomes too thick. Dr. Dennison does not think IVIg is a good treatment for you any more and would like you to be evaluated at [facility] for a possible spleen removal (splenectomy). This will need to be done in a timely fashion while your platelets are high after the IVIg infusion. The [facility] doctors are going to see you next week and will likely recommend you get admitted to the hospital, monitored closely, and be evaluated by a surgeon for the splenectomy. Please continue your aspirin and Brilinta (ticagrelor) this entire time as your blood is prone to clotting right now with the higher (normal levels of) platelets. Also certainly continue your statin as this helps protect against stroke and heart attacks. Pending Studies at Discharge: No Stand-Alone Forms: Medications to Prevent Stroke, My [facility], Smoking Cessation Medications and DC Order Prescriptions: Continued tamsulosin [Flomax] 0.4 mg capsule 0.4 mg PO QPM Qty: 90 RF: 0 finasteride 5 mg tablet 5 mg PO QPM Qty: 90 RF: 0 losartan 25 mg tablet 25 mg PO DAILY Qty: 90 RF: 3 atorvastatin 40 mg tablet 40 mg PO DAILY RF: 0 metoprolol succinate 50 mg tablet extended release 24 hr 50 mg PO DAILY RF: 0 ticagrelor 90 mg tablet 90 mg PO BID RF: 0 acetaminophen [Tylenol Extra Strength] 500 mg Tablet 1,000 mg PO Q6H PRN (Reason: Pain) RF: 0 aspirin [Ecotrin Low Strength] 81 mg Tablet,Delayed Release (Dr/Ec) 81 mg PO QAM Qty: 0 RF: 0 nitroglycerin [Nitrostat] 0.4 mg Tablet, Sublingual 0.4 mg sublingual UD PRN (Reason: chest pain) Qty: 30 RF: 0 Discharge Orders: Discharge Order (Routine); Ordered 05/23/19 Ordered By: Bernabe Garcia Admission Data Admit Date/Time: 05/23/19 01:17 Attending Provider: Bernabe Garcia Admit Provider: Lucio Myles Primary Care Provider: Vani Garcia Other Providers: Nik Mejia ; Bernabe Garcia Other Interventions: Discharge Summary Assessment (RN) Last Done: 05/23/19 14:01 DC Date/Time DO NOT enter until pt leaves facility: 05/23/19 15:01 Coding Level of Care Code 69069 OBS Care - Discharge Diagnoses Left pontine stroke I63.50 Chronic ITP (idiopathic thrombocytopenia) D69.3
[2019-05-23] MEDS ORDERED: TAMSULOSIN HCL 0.4 MG CAP PO SCH (21:00)
[2019-05-23] MEDS ORDERED: FINASTERIDE 5 MG TAB PO SCH (21:00)
--- NOTE | 2019-05-24 22:06 | Billing Data ---
Date of Service May 24, 2019 Coding Level of Care Code 38679 Initial Inpt Care Lvl 3
== END 2019-05-23 15:01 | disposition home or self-care (01) ==
LOC: 2S 21:45 → ED 21:45 → SUATTDRO 05-23 01:17 → 2S 05-23 01:46

== ENCOUNTER 2019-08-08 18:46 | Inpatient (IN) ==
[2019-08-08] MEDS: SODIUM CHLORIDE 0.9% 1000ML 1,000 ML IV SCH (19:49)
[2019-08-08 20:00] LABS: INR 1.2 (0.9-1.1); Prothrombin Time 12.2 Seconds (9.0-12.0)
--- NOTE | 2019-08-08 20:06 | Emergency Department Note ---
History of Present Illness General Chief complaint: Referred by Doctor Stated complaint: REFERED BY DOCTOR Time Seen by Provider: 08/08/19 18:52 Source: patient Mode of arrival: ambulatory Limitations: no limitations History of Present Illness Provider complaint: Abnormal outpatient CAT scan This is an 79 yo male referred to the ER after an abnormal outpt CT. I did receive a call prior to his arrival from the outpt physician evaluating him for splenectomy due to his hx of chronic ITP having already failed several other treatment modalities. He was notified by radiology that CT revealed free air likely from diverticulitis. Pt arrived and stated over the last day he has only noticed an occasional "twinge" in his LLQ, no other abdominal pain. No change in stool or urine. No fevers/chills. No n/v. He states he has previously had colonoscopy which were reassuring per his report, last one 5-6 years ago. Pt denies noting any bleeding from any source. No other recent change in medications. No hx of diverticulitis. Pt seen during a time of high acuity and national emergency pandemic while wearing PPE. Home Medications Home Medications Medication Instructions Recorded Confirmed Type acetaminophen [Tylenol Extra 1,000 mg PO Q6H PRN 02/23/19 08/08/19 History Strength] aspirin [Ecotrin Low Strength] 81 mg PO QAM #0 tab 02/25/19 08/08/19 Rx nitroglycerin [Nitrostat] 0.4 mg SUBLINGUAL UD PRN #30 tab 02/25/19 08/08/19 Rx atorvastatin 40 mg tablet 80 mg PO QPM 04/09/19 08/08/19 History metoprolol succinate 50 mg 50 mg PO DAILY 04/09/19 08/08/19 History tablet,extended release 24 hr ticagrelor 90 mg tablet 90 mg PO BID 04/09/19 08/08/19 History losartan 25 mg tablet 25 mg PO DAILY #90 tab 05/15/19 08/08/19 Rx tamsulosin 0.4 mg capsule 0.4 mg PO QPM #90 cap 05/27/19 08/08/19 Rx finasteride 5 mg PO QPM 08/08/19 08/08/19 History prednisone 65 mg PO UD 08/08/19 08/08/19 History Allergies Allergy/AdvReac Type Severity Reaction Status Date / Time Bactrim Allergy Severe HIVES, Verified 07/27/17 10:29 INTERFERES WITH IMMUNE SYSTEM Cipro Allergy Severe MUSCLE Verified 07/27/17 10:29 PROBLEMS ciprofloxacin Allergy Severe MUSCLE Verified 08/08/19 21:15 PROBLEMS morphine Allergy Severe HALLUCINATI Verified 08/08/19 21:15 ONS sulfamethoxazole Allergy Severe HIVES, Verified 08/08/19 21:15 INTERFERES WITH IMMUNE SYSTEM trimethoprim Allergy Severe HIVES, Verified 08/08/19 21:15 INTERFERES WITH IMMUNE SYSTEM Past Med/Surg History Medical History BPH (benign prostatic hyperplasia) CAD (coronary artery disease) (Acute) Chronic ITP (idiopathic thrombocytopenia) Coronary stent thrombosis GERD (gastroesophageal reflux disease) MILD Hypertension Kidney stones 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 Mitral regurgitation Rheumatoid arthritis Surgical History History of adenoidectomy History of appendectomy History of colonoscopy History of cystoscopy STONE REMOVAL History of lithotripsy History of tonsillectomy History of tooth extraction History of total hip arthroplasty RT/LEFT S/P coronary artery stent placement Family History Father Cancer Other Hypertension Kidney disease Social History Preferred Language: Italian Communication Ability: Effective 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 and A total of 10 systems reviewed and were otherwise negative Physical Exam Vital Signs Vital Signs - 24 hr 08/08/19 21:00 08/08/19 21:29 08/08/19 21:30 Pulse Rate 70 67 64 Pulse Rate from SpO2 Sensor 69 65 64 Respiratory Rate 22 19 23 Blood Pressure 169/96 H 167/85 H 154/100 H Blood Pressure Mean 128 123 114 Pulse Oximetry 96 95 95 GENERAL: alert, well appearing, well nourished, no distress, non-toxic EYE EXAM: normal conjunctiva, PERRL and EOM's grossly intact OROPHARYNX: no exudate, no erythema, lips, buccal mucosa, and tongue normal and mucous membranes are moist NECK: supple, no nuchal rigidity, no adenopathy, non-tender LUNGS: Clear to auscultation. Normal chest wall mechanics, no w/r/r HEART: no murmurs, S1 normal and S2 normal ABDOMEN: abdomen soft, non-tender, normo-active bowel sounds, no masses, no rebound or guarding. BACK: Back is symmetrical on inspection and there is no deformity, no midline tenderness, no CVA tenderness. SKIN: no rashes and no bruising, multiple areas of ecchymosis in various stages noted mostly to forearms, a few scattered on b/l tib/fib areas UPPER EXTREMITIES: upper extremities are grossly normal. FROM, nml pulses b/l. LOWER EXTREMITIES: No pitting edema. FROM, nml pulses b/l. NEURO EXAM: Normal sensorium, cranial nerves II-XII grossly intact, normal speech, no gross weakness of arms, no gross weakness of legs. Gross sensation intact. Course Course 1999: Case discussed with Dr. Matias. He will review CT, although feels patient would likely be managed medically at this time. Given other medical problems asked that patient be admitted to medicine. He will see in consult. 2021: Case discussed with Dr. Bartholomew, hospitalist. 2034: Patient updated on plan. 2039: Dr. Matias now at bedside evaluating the patient. Administered Medications Aspirin (Ecotrin Ectab) 81 mg PO QAM [facility] Stop: 09/08/19 08:59 Last Admin: 08/09/19 08:46 Dose: 81 mg Documented by: [id number] Sodium Chloride (Nss 1000ml) 1,000 mls @ 125 mls/hr IV .Q8H ERICK Stop: 09/07/19 18:59 Last Infusion: 08/09/19 22:29 Dose: 125 mls/hr Documented by: [id number] Admin: 08/09/19 18:37 Dose: 125 mls/hr Documented by: [id number] Infusion: 08/09/19 18:33 Dose: 125 mls/hr Documented by: [id number] Admin: 08/09/19 10:33 Dose: 125 mls/hr Documented by: [id number] Infusion: 08/09/19 10:33 Dose: 125 mls/hr Documented by: [id number] Infusion: 08/09/19 06:45 Dose: 125 mls/hr Documented by: [id number] Admin: 08/09/19 02:34 Dose: 125 mls/hr Documented by: [id number] Infusion: 08/09/19 02:34 Dose: 125 mls/hr Documented by: [id number] Admin: 08/08/19 19:49 Dose: 125 mls/hr Documented by: [id number] Metronidazole (Flagyl) 500 mg in 100 mls @ 100 mls/hr IV Q8H [facility] Stop: 08/19/19 05:59 Last Infusion: 08/09/19 22:30 Dose: 0 mls/hr Documented by: [id number] Admin: 08/09/19 21:27 Dose: 100 mls/hr Documented by: [id number] Infusion: 08/09/19 16:30 Dose: 0 mls/hr Documented by: [id number] Admin: 08/09/19 15:23 Dose: 100 mls/hr Documented by: [id number] Infusion: 08/09/19 07:05 Dose: 0 mls/hr Documented by: [id number] Admin: 08/09/19 06:03 Dose: 100 mls/hr Documented by: [id number] Cefepime HCl 2,000 mg/ Syringe 20 mls @ 5.5 mls/min IV Q12H [facility]; Protocol Stop: 08/19/19 09:59 Last Admin: 08/09/19 21:25 Dose: 5.5 mls/min Documented by: [id number] Admin: 08/09/19 10:45 Dose: 5.5 mls/min Documented by: [id number] Losartan Potassium (Cozaar) 25 mg PO DAILY [facility] Stop: 09/08/19 16:24 Last Admin: 08/09/19 17:00 Dose: 25 mg Documented by: [id number] Prednisone (Prednisone) 5 mg PO DAILY [facility] Stop: 08/13/19 09:01 Last Admin: 08/09/19 08:45 Dose: 5 mg Documented by: [id number] Prednisone (Prednisone) 60 mg PO DAILY [facility] Stop: 09/08/19 08:59 Last Admin: 08/09/19 08:45 Dose: 60 mg Documented by: [id number] Ticagrelor (Brilinta) 90 mg PO BID [facility] Stop: 09/08/19 08:59 Last Admin: 08/09/19 20:13 Dose: 90 mg Documented by: [id number] Admin: 08/09/19 08:46 Dose: 90 mg Documented by: [id number] Discontinued Medications Piperacillin Sod/Tazobactam Sod (Zosyn) 4.5 gm in 120 mls @ 240 mls/hr IV NOW ONE Stop: 08/08/19 20:43 Last Admin: 08/08/19 20:53 Dose: Not Given Documented by: [id number] Cefepime HCl (Maxipime) 2,000 mg in 20 mls @ 5 mls/min IV NOW STA Stop: 08/08/19 20:44 Last Admin: 08/08/19 21:21 Dose: 5 mls/min Documented by: [id number] Metronidazole (Flagyl) 500 mg PO NOW STA Stop: 08/08/19 20:42 Last Admin: 08/08/19 21:21 Dose: 500 mg Documented by: [id number] Medical Decision Making Differential Diagnosis Differential diagnoses includes but is not limited to gastritis, peptic ulcer disease, GERD, gallbladder disease, pancreatitis, small bowel obstruction, acute coronary syndrome, pericarditis, ischemic bowel, irritable bowel disease, irritable bowel syndrome, appendicitis, diverticulitis, malignancy, hernia, urinary tract infection, torsion, [/ectopic (if female)], perforation, trauma, infectious. Medical Records Attestation: I reviewed the patient's medical records. Home Medications Current Medication List: was personally reviewed by me Laboratory Data Attestation: I reviewed the patient's lab results. Result diagrams: 08/09/19 08:15 08/09/19 08:15 Lab Results 08/08/19 08/08/19 08/08/19 Range/Units 19:36 19:36 19:36 WBC 16.31 H (4.8-10.8) K/uL RBC 4.72 (4.7-6.1) M/uL Hgb 15.2 (14.0-18.0) g/dL Hct 45.8 (42-52) % MCV 97.0 (80-100) fL MCH 32.2 (25-34) pg MCHC 33.2 (32-36) g/dL RDW Std Deviation 54.4 H (36.4-46.3) fL RDW Coeff of Katarina 15.1 H (11.5-14.5) % Plt Count (130-400) K/uL MPV (7.4-10.4) fL Immature Gran % (Auto) 0.2 % Neut % (Auto) 94.9 % Lymph % (Auto) 2.7 % [place] % (Auto) 2.0 % Eos % (Auto) 0.1 % Baso % (Auto) 0.1 % Immature Gran # (Auto) 0.04 H (0.00-0.02) K/uL Neut # (Auto) 15.47 H (1.4-6.5) K/uL Lymph # (Auto) 0.44 L (1.2-3.4) K/uL [place] # (Auto) 0.33 (0.11-0.59) K/uL Eos # (Auto) 0.02 (0-0.5) K/uL Baso # (Auto) 0.01 (0-0.2) K/uL Plt Count ,Citrate (130-400) K/uL PT 12.2 H (9.0-12.0) Seconds INR 1.2 H (0.9-1.1) Sodium (136-145) mmol/L Potassium (3.5-5.1) mmol/L Chloride (98-107) mmol/L Carbon Dioxide (21-32) mmol/L Anion Gap (3-11) BUN (7-18) mg/dl Creatinine (0.6-1.4) mg/dl Est Cr Clr Drug Dosing ml/min Est GFR ( Amer) Est GFR (Non-Af Amer) BUN/Creatinine Ratio (10-20) Glucose (70-99) mg/dl Lactate 1.4 (0.4-2.0) mmol/L Calcium (8.5-10.1) mg/dl Total Bilirubin (0.2-1) mg/dl AST (15-37) U/L ALT (12-78) U/L Alkaline Phosphatase (45-117) U/L Total Protein (6.4-8.2) gm/dl Albumin (3.4-5.0) gm/dl Globulin (2.5-4.0) gm/dl Albumin/Globulin Ratio (0.9-2) Lipase (73-393) U/L 08/08/19 08/08/19 Range/Units 19:36 20:30 WBC (4.8-10.8) K/uL RBC (4.7-6.1) M/uL Hgb (14.0-18.0) g/dL Hct (42-52) % MCV (80-100) fL MCH (25-34) pg MCHC (32-36) g/dL RDW Std Deviation (36.4-46.3) fL RDW Coeff of Katarina (11.5-14.5) % Plt Count (130-400) K/uL MPV (7.4-10.4) fL Immature Gran % (Auto) % Neut % (Auto) % Lymph % (Auto) % [place] % (Auto) % Eos % (Auto) % Baso % (Auto) % Immature Gran # (Auto) (0.00-0.02) K/uL Neut # (Auto) (1.4-6.5) K/uL Lymph # (Auto) (1.2-3.4) K/uL [place] # (Auto) (0.11-0.59) K/uL Eos # (Auto) (0-0.5) K/uL Baso # (Auto) (0-0.2) K/uL Plt Count ,Citrate 131 (130-400) K/uL PT (9.0-12.0) Seconds INR (0.9-1.1) Sodium 135 L (136-145) mmol/L Potassium 4.3 (3.5-5.1) mmol/L Chloride 104 (98-107) mmol/L Carbon Dioxide 24 (21-32) mmol/L Anion Gap 7.0 (3-11) BUN 27 H (7-18) mg/dl Creatinine 1.09 (0.6-1.4) mg/dl Est Cr Clr Drug Dosing 48.8 ml/min Est GFR ( Amer) 73.9 Est GFR (Non-Af Amer) 63.8 BUN/Creatinine Ratio 24.3 H (10-20) Glucose 115 H (70-99) mg/dl Lactate (0.4-2.0) mmol/L Calcium 9.4 (8.5-10.1) mg/dl Total Bilirubin 0.8 (0.2-1) mg/dl AST 33 (15-37) U/L ALT 98 H (12-78) U/L Alkaline Phosphatase 52 (45-117) U/L Total Protein 6.8 (6.4-8.2) gm/dl Albumin 2.9 L (3.4-5.0) gm/dl Globulin 3.9 (2.5-4.0) gm/dl Albumin/Globulin Ratio 0.7 L (0.9-2) Lipase 202 (73-393) U/L Imaging Data Radiologist's Impression: CT abd pelvis wo con CT DOSE: 596.03 mGy.cm HISTORY: Pain CHRONIC ITP, PRE SURGERY TECHNIQUE: Multiaxial CT images of the abdomen and pelvis were performed without contrast. A dose lowering technique was utilized adhering to the principles of ALARA. COMPARISON STUDY: 09/23/2017 FINDINGS: Lung bases are clear. There is a trace amount of subdiaphragmatic free air as well as minimal scattered air throughout the mesentery of the abdomen as well as pelvis. Origin is uncertain although this potentially relates to perforated acute diverticulitis of the proximal to mid sigmoid. There is a 10 cm length of proximal sigmoid demonstrating moderate wall thickening as well as pericolonic infiltrative change. Kidneys negative for hydronephrosis. There is right renal cyst. Bilateral nonobstructing nephrocalcinosis is present. Nonobstructive bowel pattern. Potential early cirrhotic change. Gallstones. IMPRESSION: 1. Free intraperitoneal air. 2. Although etiology is unclear, statistically this may be related to a 10 cm length of acute diverticulitis involving the proximal sigmoid. 3. No evidence for abscess collection or obstructive change. 4. Gallstones. 5. Nonobstructing nephrocalcinosis. ACT 112: Negative or not required by law. The above report was generated using voice recognition software. It may contain grammatical, syntax or spelling errors. Electronically signed by: Tomy Pedroza M.D. Blood Pressure Blood Pressure Findings: Elevated blood pressure Blood Pressure Disposition: further management by hospitalist LEONIE Narrative Pt here well appearing and nearly asymptomatic after having an outpt CT which revealed free intraperitoneal air likely from diverticulitis. Case discussed with general surgery and with hospitalist. Pt started on IV antibiotics. Repeat labs checked and revealed increased leukocytosis. Pt made aware of all results. VS stable. Pt agreeable with plan. An order was placed for continuous cardiac monitoring. The monitor shows a rate of 70 with normal sinus_ rhythm. Impression & Plan Diverticulitis of colon with perforation, Chronic ITP (idiopathic thrombocytopenia) Discharge Plan Visit Data *Final* Discharge Date/Time: 08/08/19 23:00 Chief Complaint: Referred by Doctor Stated Complaint: REFERED BY DOCTOR ED Provider: Prema Sharma Discharge Problem: Diverticulitis of colon with perforation, Chronic ITP (idiopathic thrombocytopenia) Patient Disposition: Admitted As Inpatient Discharge Instructions Interventions: ED Discharge Assessment Last Done: 08/08/19 23:00 Discharge Problem: Diverticulitis of colon with perforation Qualifiers: Diverticulitis bleeding: without bleeding Qualified Code(s): K57.20 - Diverticulitis of large intestine with perforation and abscess without bleeding
[2019-08-08 20:07] LABS: Albumin Level 2.9 gm/dl (3.4-5.0); BUN Creatinine Ratio 24.3 (10-20); Calcium 9.4 mg/dl (8.5-10.1); Creatinine Clr Calc Pharmacy 48.8 ml/min; Est GFR (African American) 73.9; Est GFR (Non-African American) 63.8; Potassium 4.3 mmol/L (3.5-5.1)
[2019-08-08 20:10] LABS: Albumin Globulin Ratio 0.7 (0.9-2); Bilirubin,Total 0.8 mg/dl (0.2-1); Globulin 3.9 gm/dl (2.5-4.0); Total Protein 6.8 gm/dl (6.4-8.2)
[2019-08-08] MEDS ORDERED: PIPERACILL/TAZOBAC CONSULT ACTIVE PRN (20:14)
[2019-08-08] MEDS ORDERED: PIPERACILLIN/TAZOBACTAM 4.5 GM/120 ML BAG IV ONE (20:14)
[2019-08-08 20:33] LABS: Basophils # (auto) 0.01 K/uL (0-0.2); Basophils % (auto) 0.1 %; Eosinophils # (auto) 0.02 K/uL (0-0.5); Eosinophils % (auto) 0.1 %; Hematocrit (blood only) 45.8 % (42-52); Hemoglobin 15.2 g/dL (14.0-18.0); Immature Granulocytes # (auto) 0.04 K/uL (0.00-0.02); Immature Granulocytes % (auto) 0.2 %; Lymphocytes # (auto) 0.44 K/uL (1.2-3.4); Lymphocytes % (auto) 2.7 %; Mean Corpuscular Hemoglobin 32.2 pg (25-34); Mean Corpuscular Hgb Conc 33.2 g/dL (32-36); Monocytes # (auto) 0.33 K/uL (0.11-0.59); Neutrophils # (auto) 15.47 K/uL (1.4-6.5); Neutrophils % (auto) 94.9 %; RDW Coefficient of Variation 15.1 % (11.5-14.5); RDW Standard Deviation 54.4 fL (36.4-46.3); Red Blood Count 4.72 M/uL (4.7-6.1); White Blood Count 16.31 K/uL (4.8-10.8)
[2019-08-08] MEDS ORDERED: metroNIDAZOLE 500 MG TAB PO STA (20:41)
[2019-08-08] MEDS ORDERED: CEFEPIME 2,000 MG/20 ML VIAL IV STA (20:41)
--- NOTE | 2019-08-08 21:47 | History & Physical Report ---
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 ED Course: Cefepime 1g, Flagyl 500mg, 1L NSS 125 ml/hr Diverticulitis w/ Perforation -CT Abdomen noted free intraperitoneal air and 10cm length of acute d iverticulitis involving the proximal sigmoid. -Continue Abx therapy with Cefepime and Flagyl -General Surgery Consulted -NPO -Serial abdominal checks q4h Chronic ITP and Low Grade Lymphoma -Low-Grade Lymphoma with ITP diagnosed in 2016 -Was scheduled for Splenectomy on 08/14/19 at [facility] [place], may require rescheduling -Continue Prednisone 60mg daily CAD s/p Stent -continue ASA 81mg QD -Continue Brilinta -Holding Atorvastatin HTN -Holding PO medications at this time Dispo: Med/Surg FEN: NPO, NSS 125 ml/hr DVT: SCD, holding pharmaceutical in case need for surgical intervention Code: Full (2) Chronic ITP (idiopathic thrombocytopenia): (3) S/P coronary artery stent placement: (4) CAD (coronary artery disease): (5) Lymphoma: (6) Hypertension: (7) GERD (gastroesophageal reflux disease): History of Present Illness Chief Complaint: Free Intraperitoneal Air Primary Care Provider: Vani Mauro Patient is a pleasant 79 year old male with PMHx ITP, S/P Coronary Stent 02/2019, 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 Patient notes that he had gone in on Sunday of this week for an appointment regarding a splenectomy originally scheduled for 08/14/19. As he was unable to get an Ab/Pelv Ct scan at that time, he had one completed today which showed an incidental finding of free intraperitoneal air. While the etiology is unclear, it appeared it may have been related to a 10 cm length of acute diverticulitis involving the proximal sigmoid. Patient notes that he has not had any abdominal pain, discomfort, diarrhea, nausea, vomiting, or difficulties with eating. He also denies any abdominal distension, fever, or chills. Of note, patient states that he was diagnosed with ITP roughly 2.5 years ago and has been dealing with it since with the current plan for splenectomy being his next course of action. He has been taking Prednisone 75mg daily for at least the past month and recently this past week had reduced to 65mg with plans to reduce to 60mg by 08/10/19 prior to the splenectomy. Patient notes he otherwise feels well currently. Allergies Allergy/AdvReac Type Severity Reaction Status Date / Time Bactrim Allergy Severe HIVES, Verified 07/27/17 10:29 INTERFERES WITH IMMUNE SYSTEM Cipro Allergy Severe MUSCLE Verified 07/27/17 10:29 PROBLEMS ciprofloxacin Allergy Severe MUSCLE Verified 08/08/19 21:15 PROBLEMS morphine Allergy Severe HALLUCINATI Verified 08/08/19 21:15 ONS sulfamethoxazole Allergy Severe HIVES, Verified 08/08/19 21:15 INTERFERES WITH IMMUNE SYSTEM trimethoprim Allergy Severe HIVES, Verified 08/08/19 21:15 INTERFERES WITH IMMUNE SYSTEM Home Medications Home Medications Medication Instructions Recorded Confirmed Type acetaminophen [Tylenol Extra 1,000 mg PO Q6H PRN 02/23/19 08/08/19 History Strength] aspirin [Ecotrin Low Strength] 81 mg PO QAM #0 tab 02/25/19 08/08/19 Rx nitroglycerin [Nitrostat] 0.4 mg SUBLINGUAL UD PRN #30 tab 02/25/19 08/08/19 Rx atorvastatin 40 mg tablet 80 mg PO QPM 04/09/19 08/08/19 History metoprolol succinate 50 mg 50 mg PO DAILY 04/09/19 08/08/19 History tablet,extended release 24 hr ticagrelor 90 mg tablet 90 mg PO BID 04/09/19 08/08/19 History losartan 25 mg tablet 25 mg PO DAILY #90 tab 05/15/19 08/08/19 Rx tamsulosin 0.4 mg capsule 0.4 mg PO QPM #90 cap 05/27/19 08/08/19 Rx finasteride 5 mg PO QPM 08/08/19 08/08/19 History prednisone 65 mg PO UD 08/08/19 08/08/19 History Past Med/Surg History Medical History (Updated 08/08/19 @ 20:46 by Prema Sharma DO) BPH (benign prostatic hyperplasia) CAD (coronary artery disease) (Acute) Chronic ITP (idiopathic thrombocytopenia) Coronary stent thrombosis GERD (gastroesophageal reflux disease) MILD Hypertension Kidney stones 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 Mitral regurgitation Rheumatoid arthritis Surgical History (Updated 08/01/19 @ 19:00 by Je Sorenson MD) History of adenoidectomy History of appendectomy History of colonoscopy History of cystoscopy STONE REMOVAL History of lithotripsy History of tonsillectomy History of tooth extraction History of total hip arthroplasty RT/LEFT S/P coronary artery stent placement Family History (Updated 05/29/19 @ 09:55 by Anais Pearson PA-C) Father Cancer Other Hypertension Kidney disease Social History Preferred Language: Yoruba Communication Ability: Effective Inside Meter Tester Required: No Beliefs That Will Affect Care: None Current Living Situation: Spouse Other Information That Helps Us Care for You: No Feels Safe at Home: Yes Safety Concerns: Feels Safe At This Time Smoking Status: Never smoker Second Hand Exposure: Yes ( A CHILD) ; Hx Alcohol Use: Yes Alcohol type: wine Hx Substance Use: No Review of Systems Constitutional: no fever, no chills and no weakness Eyes: no worsening vision Ear, Nose, Mouth, Throat: no ear pain and no dizziness Respiratory: no cough and no dyspnea Cardiovascular: no chest pain, no dyspnea, no dyspnea on exertion and no palpitations Gastrointestinal: no abdominal pain, no nausea, no vomiting, no coffee ground emesis, no change in stools, no constipation, no diarrhea/loose stools, no blood in stools and no melena Genitourinary: no dysuria, no urinary frequency and no urinary hesitancy Neurologic: no falls Physical Exam Constitutional: well developed, well nourished and cooperative; no acute distress and not in distress Eyes: PERRL, conjunctivae normal, anicteric sclerae normal visual june by confrontation ENMT: external ear and nose normal, oropharynx normal Ears: no hearing impairment Neck: trachea midline, no thyromegaly Respiratory: normal respiratory effort, lungs clear to auscultation Cardiovascular: Rate/Rhythm: regular rate and regular rhythm Heart Sounds: normal S1 and normal S2 Vessels: no JVD Gastrointestinal (Abdomen): Inspection/Auscultation: abdomen normal to inspection and normal bowel sounds; abdomen not distended Percussion /Palpation: abdomen soft; abdomen nontender, no guarding, abdomen not rigid and abdomen not firm Musculoskeletal: no cyanosis or clubbing, extremities motor strength 5/5 Skin: + dry skin and + ecchymosis Neurologic: PERRL, EOMI, accommodation nl, no face palsy, no dysarthria Psychiatric: A+Ox3, euthymic affect Results & Data Results & Data ([facility]) Vital Signs (Past 12 Hours) Vital Signs Temp Pulse Pulse Resp BP BP Pulse Ox 08/08/19 21:00 70 22 169/96 H 96 08/08/19 20:33 72 27 H 150/80 H 96 08/08/19 20:13 96 08/08/19 20:00 68 18 121/95 08/08/19 18:49 36.4 C L 80 20 158/88 H 95 Code Status & VTE Plan VTE Prophylaxis Plan VTE Prophylaxis will be ordered: Yes Supervising Physician Co-Signing Physician Notes Mr. Tamayo is a pleasant 79yo C male with history of ITP with failed IVIG tx, CAD s/p PCI to Cx and RCA, history of in-stent thrombosis, HTN. Patient is tentatively scheduled for splenectomy for ITP management - had a pre-operative CT Abdomen performed which revealed free subdiaphragmatic air. Patient had only few episodes of very mild abdominal pain, otherwise no complaints. He is on hi gh dose slow-taper of Prednisone which has him feeling quite energized, unable to sleep at times. On exam he is afebrile, bradycardic and hypertensive, pleasant, NAD Skin - intact, no rash HEENT - NC/AT, PERRL, EOMI, MMM, Neck supple Heart - +S1/S2, regular, no m/r/g Lungs - CTA Abd - +BS, soft, NT/ND, no masses, no peritoneal signs Ext - No edema Labs and images reviewed. Significant for leukocytosis, [id number] CT Abd with free intraperitoneal air, 10cm length of acut diverticulitis involving the proximal sigmoid, no abscess/obstruction Assessment/Plan:79 yo C male with ITP, incidental discovery of free intraperitoneal air most likely secondary to acute diverticulitis with perforation. Patient is afebrile, HD stable, non-toxic in appearance. Abdominal exam is benign -Admit to medical floor - conservative management with NPO, IVF, IV abx Cefepime/Flagyl, serial abdominal exams -Appreciate Surgical assistance - no need for urgent intervention at this time -Continue steroid taper - if patient becomes acutely ill or hypotensive will increase to stress dosed steroids -CAD with recent stent placement 02/2019, history of in-stent stenosis - will maintain on DAPT with ASA and Brillinta -Remainder of plan as above PG Care Time/CCT Total # of Minutes Spent Total Time Spent with Patient: Total time spent is greater than 50% in coordination of care (as documented) at patient's floor/unit and/or counseling patient: Coding Level of Care Code 74745 Initial Inpt Care Lvl 3 Diagnoses Diverticulitis of colon with perforation K57.20 Diverticulitis bleeding: without bleeding Chronic ITP (idiopathic thrombocytopenia) D69.3 S/P coronary artery stent placement Z95.5 CAD (coronary artery disease) I25.119 Associated angina: with unspecified angina Coronary Disease-Associated Artery/Lesion type: unspecified vessel or lesion type [place] vs. transplanted heart: [place] heart Lymphoma C85.90 Hypertension I10 GERD (gastroesophageal reflux disease) K21.9 Resident Activity Tracking Resident Involvement: Resident Care Provided Care Provided: Adult Hospital Medicine (1) CAD (coronary artery disease) Associated angina: with unspecified angina Coronary Disease-Associated Artery/Lesion type: unspecified vessel or lesion type [place] vs. transplanted heart: [place] heart Qualified Code(s): I25.119 - Atherosclerotic heart disease of [place] coronary artery with unspecified angina pectoris (2) Diverticulitis of colon with perforation Diverticulitis bleeding: without bleeding Qualified Code(s): K57.20 - Div erticulitis of large intestine with perforation and abscess without bleeding
[2019-08-09] MEDS: SODIUM CHLORIDE 0.9% 1000ML 1,000 ML IV SCH ×3 (02:34→18:37)
[2019-08-09] MEDS: metroNIDAZOLE 500 MG/100 ML BAG IV SCH ×3 (06:03→21:27)
[2019-08-09] MEDS: predniSONE 20 MG TAB PO SCH (08:45)
[2019-08-09] MEDS: predniSONE 5 MG TAB PO SCH (08:45)
[2019-08-09] MEDS: ASPIRIN 81 MG ECTAB PO SCH (08:46)
[2019-08-09] MEDS: TICAGRELOR 90 MG TAB PO SCH ×2 (08:46→20:13)
[2019-08-09 08:55] LABS: Albumin Level 2.3 gm/dl (3.4-5.0); BUN Creatinine Ratio 26.3 (10-20); Calcium 8.5 mg/dl (8.5-10.1); Creatinine Clr Calc Pharmacy 64.8 ml/min; Est GFR (African American) 96.8; Est GFR (Non-African American) 83.5; Potassium 3.7 mmol/L (3.5-5.1)
[2019-08-09 09:07] LABS: Albumin Globulin Ratio 0.7 (0.9-2); Bilirubin,Total 0.9 mg/dl (0.2-1); Globulin 3.3 gm/dl (2.5-4.0); Total Protein 5.6 gm/dl (6.4-8.2)
[2019-08-09 09:13] LABS: ALC (manual) 1.35 K/uL (1.2-3.4); ANC (manual) 10.12 K/uL (1.4-6.5); Eosinophils % (manual) 0.8 %; Hematocrit (blood only) 39.9 % (42-52); Hemoglobin 13.8 g/dL (14.0-18.0); Lymphocytes # (manual) 1.35 K/uL (1.2-3.4); Lymphocytes % (manual) 10.8 %; Mean Corpuscular Hemoglobin 33.6 pg (25-34); Mean Corpuscular Hgb Conc 34.6 g/dL (32-36); Mean Corpuscular Volume 97.1 fL (80-100); Monocytes # (manual) 0.97 K/uL (0.11-0.59); Monocytes % (manual) 7.7 %; Neutrophils # (manual) 10.12 K/uL (1.4-6.5); Neutrophils % (manual) 80.7 %; RBC Morphology Unremarkable; RDW Coefficient of Variation 15.2 % (11.5-14.5); RDW Standard Deviation 53.9 fL (36.4-46.3); Red Blood Count 4.11 M/uL (4.7-6.1); White Blood Count 12.54 K/uL (4.8-10.8)
--- NOTE | 2019-08-09 09:22 | Hospitalist Progress Note ---
Date of Service August 09, 2019 Assessment & Plan (1) Diverticulitis of colon with perforation: -CT Abdomen noted free intraperitoneal air and 10cm length of acute diverticulitis involving the proximal sigmoid. -Continue Abx therapy with Cefepime and Flagyl -General Surgery Consulted - appreciate -Advance diet today to clears - discussed with gen surg -Serial abdominal checks q4h (2) Chronic ITP (idiopathic thrombocytopenia): -Low-Grade Lymphoma with ITP diagnosed in 2017 -Was scheduled for Splenectomy on 08/14/19 at [facility] [place] -Continue Prednisone 65mg daily - had been on 75 mg daily prior to this week as he was anticipating splenectomy next week and was being titrated down. Maintain this dose - will require follow up to determine dosage upon discharge. (3) Lymphoma: - Follows with Dr. Dennison as outpatient (4) S/P coronary artery stent placement: (5) Hypertension: - had held metoprolol and losartan on admission - BP elevated today, will resume both. Can use IV lopressor for elevated SBP>160 or DBP> 110. (6) CAD (coronary artery disease): -continue ASA 81mg daily -Continue Brilinta 90 mg BID -Holding Atorvastatin (7) GERD (gastroesophageal reflux disease): - Stable (8) DVT prophylaxis: - teds, scds, brillinta/asa CODE: Full Code Dispo: From home, likely to remain in the hospital x 1-2 days Admission and Anticipated Discharge Date Admission Date: August 08, 2019 Subjective The patient was seen and examined this morning. Pt states he is doing very well today. 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 He was supposed to have a splenectomy next after meeting with a surgeon on Sunday and had a follow up abd/pelvis CT scan, which was done here at [facility], thus showing free air within the abdomen leading to his hospitalization. He is currently being treated for diverticulosis and microperforation with IV cefepime and flagyl. He has been afebrile since coming in, VSS, no complaints of abdominal pain, distension, pressure. Has not passed flatus or had a BM yet, last BM was yesterday morning. The last time he ate was on 08/07 around 2pm before presenting to the ER. He has no other acute complaints. Pt feels very good, and honestly would not have known anything was wrong had his doctor not told him to go to the ER because of the CT scan. Review of Systems Review of Systems: Constitutional: No fever, sweats or chills Eyes: No diplopia, no worsening or blurred vision ENT: normal hearing, no trouble swallowing Respiratory: No cough, sputum, dyspnea at rest or on exertion Cardiovascular: No chest pain, tightness or palpitations Abdomen: As per HPI. No pain, nausea, vomiting, diarrhea or constipation Musculoskeletal: No joint pain, calf pain, swelling Hematological: + purpura over ankles bilaterally, chronic, easy bruising Neurologic: No weakness, numbness/tingling, or balance problems Psychiatric: No anxiety or depression Skin: No rash or itch Physical Exam Physical Exam: General: awake, alert, no apparent distress, + rounded puffy face and neck, slightly flushed in appearance Head: Normocephalic, atraumatic ENT: PERRL, EOMI, no pharyngeal exudate, mucous membranes moist Chest: Clear to auscultation, on room air, no adventitious breath sounds Cardiac: Regular rate and rhythm, no murmur, no JVD, normal peripheral pulses, good capillary refill Abdominal: NABS x 4 quadrants, + abdominal obesity, soft, nondistended, nontender to palpation, no rebound, guarding Extremities: + Left upper arm with large area of ecchymosis, + purpura over ankles bilaterally, no edema or erythema otherwise, calfs nontender to palpation Psych: Normal mood and affect Neuro: AAO x 3, no gross motor deficits, speech is clear, no peripheral sensory deficits Results & Data Results & Data ([facility]) Vital Signs (Past 12 Hours) Vital Signs Temp Pulse Pulse Resp BP BP BP 08/09/19 07:10 37.0 C 68 16 151/76 H 08/08/19 23:10 170/89 H 08/08/19 23:09 36.3 C L 59 L 16 178/88 H 08/08/19 23:05 36.3 C L 59 L 16 170/89 H 178/88 H 08/08/19 22:30 62 25 H 168/90 H 08/08/19 22:00 63 26 H 169/86 H 08/08/19 21:30 64 23 154/100 H 08/08/19 21:29 67 19 167/85 H Pulse Ox 08/09/19 07:10 92 08/08/19 23:10 08/08/19 23:09 98 08/08/19 23:05 98 08/08/19 22:30 96 08/08/19 22:00 96 08/08/19 21:30 95 08/08/19 21:29 95 PG Care Time/CCT Total # of Minutes Spent Total Time Spent with Patient: Total time spent is greater than 50% in coordination of care (as documented) at patient's floor/unit and/or counseling patient: Coding Level of Care Code 87434 Subseq Hosp Care Lvl 3 Diagnoses Diverticulitis of colon with perforation K57.20 Diverticulitis bleeding: without bleeding Chronic ITP (idiopathic thrombocytopenia) D69.3 Lymphoma C85.90 S/P coronary artery stent placement Z95.5 Hypertension I10 CAD (coronary artery disease) I25.119 Associated angina: with unspecified angina Coronary Disease-Associated Artery/Lesion type: unspecified vessel or lesion type [place] vs. transplanted heart: [place] heart GERD (gastroesophageal reflux disease) K21.9 DVT prophylaxis Z29.9 (1) CAD (coronary artery disease) Associated angina: with unspecified angina Coronary Disease-Associated Artery/Lesion type: unspecified vessel or lesion type [place] vs. transplanted heart: [place] heart Qualified Code(s): I25.119 - Atherosclerotic heart disease of [place] coronary artery with unspecified angina pectoris (2) Diverticulitis of colon with perforation Diverticulitis bleeding: without bleeding Qualified Code(s): K57.20 - Diverticulitis of large intestine with perforation and abscess without bleeding
--- NOTE | 2019-08-09 10:01 | Surgery Progress Note ---
Date of Service f/p DIVERTICULITIS WITH FREE AIR, pt is doing fine, no abdominal pain, no nausea, no vomiting, no fever, WBC down to 12,000. August 09, 2019 Assessment & Plan (1) Diverticulitis of colon with perforation: 08/09/2019 10 :AM doing fine, no abdominal pain, clear diet today, repeat labs in am, will F/U Supervising Physician Co-Signing Physician Notes Mr. Tamayo is a pleasant 79yo C male with history of ITP with failed IVIG tx, CAD s/p PCI to Cx and RCA, history of in-stent thrombosis, HTN. Patient is tentatively scheduled for splenectomy for ITP management - had a pre-operative CT Abdomen performed which revealed free subdiaphragmatic air. Patient had only few episodes of very mild abdominal pain, otherwise no complaints. He is on high dose slow-taper of Prednisone which has him feeling quite energized, unable to sleep at times. On exam he is afebrile, bradycardic and hypertensive, pleasant, NAD Skin - intact, no rash HEENT - NC/AT, PERRL, EOMI, MMM, Neck supple Heart - +S1/S2, regular, no m/r/g Lungs - CTA Abd - +BS, soft, NT/ND, no masses, no peritoneal signs Ext - No edema Labs and images reviewed. Significant for leukocytosis, [id number] CT Abd with free intraperitoneal air, 10cm length of acut diverticulitis involving the proximal sigmoid, no abscess/obstruction Assessment/Plan:79 yo C male with ITP, incidental discovery of free intraperitoneal air most likely secondary to acute diverticulitis with perforation. Patient is afebrile, HD stable, non-toxic in appearance. Abdominal exam is benign -Admit to medical floor - conservative management with NPO, IVF, IV abx Cefep lokesh/Flagyl, serial abdominal exams -Appreciate Surgical assistance - no need for urgent intervention at this time -Continue steroid taper - if patient becomes acutely ill or hypotensive will increase to stress dosed steroids -CAD with recent stent placement 02/2019, history of in-stent stenosis - will maintain on DAPT with ASA and Brillinta -Remainder of plan as above Subjective The patient was seen and examined this morning. Pt states he is doing very well today. 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 He was supposed to have a splenectomy next after meeting with a surgeon on Sunday and had a follow up abd/pelvis CT scan, which was done here at [facility], thus showing free air within the abdomen leading to his hospitalization. He is currently being treated for diverticulosis and microperforation with IV cefepime and flagyl. He has been afebrile since coming in, VSS, no complaints of abdominal pain, distension, pressure. Has not passed flatus or had a BM yet, last BM was yesterday morning. The last time he ate was on 08/07 around 2pm before presenting to the ER. He has no other acute complaints. Physical Exam Constitutional: WD/WN, vitals as above well developed and well nourished Eyes: PERRL, conjunctivae normal, anicteric sclerae ENMT: external ear and nose normal, oropharynx normal Neck: trachea midline, no thyromegaly Respiratory: normal respiratory effort, lungs clear to auscultation Cardiovascular: Rate/Rhythm: regular rate and regular rhythm Gastrointestinal (Abdomen): Percussion/Palpation: abdomen soft NT, ND, no distend, BS + Skin: no rashes, warm and dry Neurologic: patellar DTR's 2+ bilat, sensation intact Psychiatric: Orientation: alert and oriented x 3 Results & Data Vital Signs (Past 12 Hours) Vital Signs Temp Pulse Pulse Resp BP BP BP 08/09/19 07:10 37.0 C 68 16 151/76 H 08/08/19 23:10 170/89 H 08/08/19 23:09 36.3 C L 59 L 16 178/88 H 08/08/19 23:05 36.3 C L 59 L 16 170/89 H 178/88 H 08/08/19 22:30 62 25 H 168/90 H 08/08/19 22:00 63 26 H 169/86 H Pulse Ox 08/09/19 07:10 92 08/08/19 23:10 08/08/19 23:09 98 08/08/19 23:05 98 08/08/19 22:30 96 08/08/19 22:00 96 Laboratory Results Abnormal lab results 08/08/19 08/08/19 08/08/19 Range/Units 19:36 19:36 19:36 WBC 16.31 H (4.8-10.8) K/uL RBC (4.7-6.1) M/uL Hgb (14.0-18.0) g/dL Hct (42-52) % RDW Std Deviation 54.4 H (36.4-46.3) fL RDW Coeff of Katarina 15.1 H (11.5-14.5) % Immature Gran # (Auto) 0.04 H (0.00-0.02) K/uL Neut # (Auto) 15.47 H (1.4-6.5) K/uL Lymph # (Auto) 0.44 L (1.2-3.4) K/uL Neutrophils # (Manual) (1.4-6.5) K/uL Total Absolute Neuts (1.4-6.5) K/uL Monocytes # (Manual) (0.11-0.59) K/uL PT 12.2 H (9.0-12.0) Seconds INR 1.2 H (0.9-1.1) Sodium 135 L (136-145) mmol/L Chloride (98-107) mmol/L BUN 27 H (7-18) mg/dl BUN/Creatinine Ratio 24.3 H (10-20) Glucose 115 H (70-99) mg/dl ALT 98 H (12-78) U/L Alkaline Phosphatase (45-117) U/L Total Protein (6.4-8.2) gm/dl Albumin 2.9 L (3.4-5.0) gm/dl Albumin/Globulin Ratio 0.7 L (0.9-2) 08/09/19 08/09/19 Range/Units 08:15 08:15 WBC 12.54 H (4.8-10.8) K/uL RBC 4.11 L (4.7-6.1) M/uL Hgb 13.8 L (14.0-18.0) g/dL Hct 39.9 L (42-52) % RDW Std Deviation 53.9 H (36.4-46.3) fL RDW Coeff of [place]ar[place] 15.2 H (11.5-14.5) % Immature Gran # (Auto) (0.00-0.02) K/uL Neut # (Auto) (1.4-6.5) K/uL Lymph # (Auto) (1.2-3.4) K/uL Neutrophils # (Manual) 10.12 H (1.4-6.5) K/uL Total Absolute Neuts 10.12 H (1.4-6.5) K/uL Monocytes # (Manual) 0.97 H (0.11-0.59) K/uL PT (9.0-12.0) Seconds INR (0.9-1.1) Sodium (136-145) mmol/L Chloride 108 H (98-107) mmol/L BUN 22 H (7-18) mg/dl BUN/Creatinine Ratio 26.3 H (10-20) Glucose (70-99) mg/dl ALT (12-78) U/L Alkaline Phosphatase 42 L (45-117) U/L Total Protein 5.6 L (6.4-8.2) gm/dl Albumin 2.3 L (3.4-5.0) gm/dl Albumin/Globulin Ratio 0.7 L (0.9-2) (1) Diverticulitis of colon with perforation Diverticulitis bleeding: without bleeding Qualified Code(s): K57.20 - Diverticulitis of large intestine with perforation and abscess without bleeding
[2019-08-09] MEDS: CEFEPIME 2,000 MG in SYRINGE 7.5 ML IV SCH ×2 (10:45→21:25)
[2019-08-09] MEDS: LOSARTAN POTASSIUM 25 MG TAB PO SCH (17:00)
[2019-08-10] MEDS: SODIUM CHLORIDE 0.9% 1000ML 1,000 ML IV SCH ×2 (03:45→11:37)
[2019-08-10] MEDS: metroNIDAZOLE 500 MG/100 ML BAG IV SCH ×3 (05:46→21:22)
[2019-08-10] MEDS: ASPIRIN 81 MG ECTAB PO SCH (08:29)
[2019-08-10] MEDS: LOSARTAN POTASSIUM 25 MG TAB PO SCH (08:29)
[2019-08-10] MEDS: predniSONE 20 MG TAB PO SCH (08:29)
[2019-08-10] MEDS: predniSONE 5 MG TAB PO SCH (08:29)
[2019-08-10] MEDS: TICAGRELOR 90 MG TAB PO SCH ×2 (08:29→20:27)
[2019-08-10] MEDS: METOPROLOL SUCC 50MG EXT REL TAB PO SCH (08:30)
--- NOTE | 2019-08-10 09:22 | Hospitalist Progress Note ---
Date of Service August 10, 2019 Assessment & Plan (1) Diverticulitis of colon with perforation: Clinically stable/improving * CT Abdomen noted free intraperitoneal air and 10cm length of acute diverticulitis involving the proximal sigmoid. * Continue Abx therapy with Cefepime and Flagyl. 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 Maintain this dose - will require follow up to determine dosage upon discharge. (3) Lymphoma: * Follows with Dr. Dennison as outpatient (4) S/P coronary artery stent placement: * Hx in stent thrombosis. * Continue ASA, Brillinta (5) Hypertension: * Had held metoprolol and losartan on admission - BP elevated and resumed on 08/08 * BP continues to be elevated, at 167/88 -- currently asymptomatic * Will discontinue IVF as patient now eating regular diet * Continue to monitor (6) CAD (coronary artery disease): * continue ASA 81mg daily * Continue Brilinta 90 mg BID * Holding Atorvastatin (7) GERD (gastroesophageal reflux disease): * Stable (8) BPH w urinary obs/LUTS: * Resumed home flomax, finasteride (9) Elevated bilirubin: * Tbili 1.1 on AM labs. Remainder of LFTs wnl. Likely congestions secondary to above * Denied abdominal pain, non-tender on exam * Trend in AM (10) Hypokalemia: * K 3.4 -- replaced * Continue to monitor (11) DVT prophylaxis: * teds, scds, brillinta/asa CODE: Full Code Dispo: From home, possible discharge in AM. Will need all records sent to his surgeon in [place] at discharge. Initially scheduled for splenectomy this month [employer]. Admission and Anticipated Discharge Date Admission Date: August 08, 2019 Subjective Patient evaluated this morning. Feeling well. Eating and drinking without difficulty. To have a regular diet at lunch. Discussed improvement of labs and that we will continue to monitor in the morning with hopeful discharge. Denies fever, chills, chest pain, shortness of breath, abdominal pain, n/v. No BM yet but has been passing gas. Had bowel movement 2 days ago. Discussed resuming outpatient flomax and finasteride as they had not previously been ordered. All questions/concerns addressed. Review of Systems Review of Systems: All systems reviewed & are unremarkable except as noted in HPI & below Physical Exam Constitutional: WD/WN, vitals as above no acute distress bennie appeance, plethora Eyes: PERRL, conjunctivae normal, anicteric sclerae Neck: trachea midline, no thyromegaly Respiratory: normal respiratory effort, lungs clear to auscultation Cardiovascular: RRR, no murmur, no edema Extremities: no calf tenderness Gastrointestinal (Abdomen): Inspection/Auscultation: abdomen normal to inspection and normal bowel sounds Percussion/Palpation: abdomen soft; abdomen nontender, no guarding and abdomen not rigid obese Musculoskeletal: no cyanosis or clubbing, extremities motor strength 5/5 Skin: Right upper arm with significant ecchymosis, reported improved from days prior several areas of ecchymosis on bilateral forearm purpura b/l LE Neurologic: PERRL, EOMI, accommodation nl, no face palsy, no dysarthria Psychiatric: A+Ox3, euthymic affect Results & Data Results & Data ([facility]) Vital Signs (Past 12 Hours) Vital Signs Temp Pulse Resp BP BP Pulse Ox 08/10/19 07:22 36.4 C L 65 16 161/82 H 167/88 H 97 08/09/19 23:07 156/89 H 08/09/19 23:05 36.6 C 62 16 171/87 H 97 Laboratory Results 08/10/19 08/10/19 08/10/19 Range/Units 09:05 09:00 09:00 WBC 10.89 H (4.8-10.8) K/uL RBC 4.55 L (4.7-6.1) M/uL Hgb 14.8 (14.0-18.0) g/dL Hct 45.0 (42-52) % MCV 98.9 (80-100) fL MCH 32.5 (25-34) pg MCHC 32.9 (32-36) g/dL RDW Std Deviation 54.8 H (36.4-46.3) fL RDW Coeff of Katarina 15.1 H (11.5-14.5) % Plt Count (130-400) K/uL MPV (7.4-10.4) fL Neutrophils % (Manual) 87.4 % Lymphocytes % (Manual) 4.7 % Monocytes % (Manual) 7.1 % Metamyelocytes % (Man) 0.8 % Neutrophils # (Manual) 9.52 H (1.4-6.5) K/uL Total Absolute Neuts 9.52 H (1.4-6.5) K/uL Lymphocytes # (Manual) 0.51 L (1.2-3.4) K/uL Total Abs Lymphocytes 0.51 L (1.2-3.4) K/uL Monocytes # (Manual) 0.77 H (0.11-0.59) K/uL Metamyelocytes # (Man) 0.09 H (0-0) K/uL Plt Count ,Citrate 131 (130-400) K/uL RBC Morphology Unremarkable Sodium 136 (136-145) mmol/L Potassium 3.4 L (3.5-5.1) mmol/L Chloride 104 (98-107) mmol/L Carbon Dioxide 27 (21-32) mmol/L Anion Gap 5.0 (3-11) BUN 18 (7-18) mg/dl Creatinine 1.04 (0.6-1.4) mg/dl Est Cr Clr Drug Dosing 51.1 ml/min Est GFR ( Amer) 78.2 Est GFR (Non-Af Amer) 67.5 BUN/Creatinine Ratio 17.0 (10-20) Glucose 89 (70-99) mg/dl Calcium 8.6 (8.5-10.1) mg/dl Magnesium 2.2 (1.8-2.4) mg/dl Total Bilirubin 1.1 H (0.2-1) mg/dl AST 28 (15-37) U/L ALT 75 (12-78) U/L Alkaline Phosphatase 46 (45-117) U/L Total Protein 6.0 L (6.4-8.2) gm/dl Albumin 2.4 L (3.4-5.0) gm/dl Globulin 3.6 (2.5-4.0) gm/dl Albumin/Globulin Ratio 0.7 L (0.9-2) PG Care Time/CCT Total # of Minutes Spent Total Time Spent with Patient: Total time spent is greater than 50% in coordination of care (as documented) at patient's floor/unit and/or counseling patient: Coding Level of Care Code 78777 Subseq Hosp Care Lvl 2 Diagnoses Diverticulitis of colon with perforation K57.20 Diverticulitis bleeding: without bleeding Chronic ITP (idiopathic thrombocytopenia) D69.3 Lymphoma C85.90 S/P coronary artery stent placement Z95.5 Hypertension I10 CAD (coronary artery disease) I25.119 Associated angina: with unspecified angina Coronary Disease-Associated Artery/Lesion type: unspecified vessel or lesion type [place] vs. transplanted heart: [place] heart GERD (gastroesophageal reflux disease) K21.9 BPH w urinary obs/LUTS N40.1; N13.8 Elevated bilirubin R17 Hypokalemia E87.6 DVT prophylaxis Z29.9 (1) Diverticulitis of colon with perforation Diverticulitis bleeding: without bleeding Qualified Code(s): K57.20 - Diverticulitis of large intestine with perforation and abscess without bleeding (2) CAD (coronary artery disease) Associated angina: with unspecified angina Coronary Disease-Associated Artery/Lesion type: unspecified vessel or lesion type [place] vs. transplanted heart: [place] heart Qualified Code(s): I25.119 - Atherosclerotic heart disease of [place] coronary artery with unspecified angina pectoris
[2019-08-10 09:30] LABS: Albumin Level 2.4 gm/dl (3.4-5.0); Calcium 8.6 mg/dl (8.5-10.1); Creatinine Clr Calc Pharmacy 51.1 ml/min; Est GFR (African American) 78.2; Est GFR (Non-African American) 67.5; Potassium 3.4 mmol/L (3.5-5.1)
[2019-08-10 09:33] LABS: Albumin Globulin Ratio 0.7 (0.9-2); Bilirubin,Total 1.1 mg/dl (0.2-1); Globulin 3.6 gm/dl (2.5-4.0)
[2019-08-10 09:36] LABS: Hemoglobin 14.8 g/dL (14.0-18.0); Mean Corpuscular Hemoglobin 32.5 pg (25-34); Mean Corpuscular Hgb Conc 32.9 g/dL (32-36); Mean Corpuscular Volume 98.9 fL (80-100); RDW Coefficient of Variation 15.1 % (11.5-14.5); RDW Standard Deviation 54.8 fL (36.4-46.3); Red Blood Count 4.55 M/uL (4.7-6.1); White Blood Count 10.89 K/uL (4.8-10.8)
[2019-08-10 09:37] LABS: ALC (manual) 0.51 K/uL (1.2-3.4); ANC (manual) 9.52 K/uL (1.4-6.5); Lymphocytes # (manual) 0.51 K/uL (1.2-3.4); Lymphocytes % (manual) 4.7 %; Metamyelocytes # (manual) 0.09 K/uL (0-0); Metamyelocytes % (manual) 0.8 %; Monocytes # (manual) 0.77 K/uL (0.11-0.59); Monocytes % (manual) 7.1 %; Neutrophils # (manual) 9.52 K/uL (1.4-6.5); Neutrophils % (manual) 87.4 %; RBC Morphology Unremarkable
[2019-08-10] MEDS: CEFEPIME 2,000 MG in SYRINGE 7.5 ML IV SCH ×2 (10:08→21:22)
[2019-08-10 10:24] LABS: Magnesium 2.2 mg/dl (1.8-2.4)
[2019-08-10] MEDS ORDERED: POTASSIUM CHLORIDE / WTR 10 MEQ/100 ML PLCT IV ONE (10:30)
--- NOTE | 2019-08-10 11:58 | Surgery Progress Note ---
Date of Service tolerated clear diet, no abdominal pain, no nausea, no vomiting, passed BM, no diarrhea, no fever, August 10, 2019 Assessment & Plan (1) Diverticulitis of colon with perforation: 08/09/2019 10 :AM doing fine, no abdominal pain, clear diet today, repeat labs in am, will F/U 08/10/2019, 11:57am doing fine, regular diet possible Discharge home today or tomorrow, f/u his surgeon in 1 week, Supervising Physician Co-Signing Physician Notes Mr. Tamayo is a pleasant 79yo C male with history of ITP with failed IVIG tx, CAD s/p PCI to Cx and RCA, history of in-stent thrombosis, HTN. Patient is tentatively scheduled for splenectomy for ITP management - had a pre-operative CT Abdomen performed which revealed free subdiaphragmatic air. Patient had only few episodes of very mild abdominal pain, otherwise no complaints. He is on high dose slow-taper of Prednisone which has him feeling quite energized, unable to sleep at times. On exam he is afebrile, bradycardic and hypertensive, pleasant, NAD Skin - intact, no rash HEENT - NC/AT, PERRL, EOMI, MMM, Neck supple Heart - +S1/S2, regular, no m/r/g Lungs - CTA Abd - +BS, soft, NT/ND, no masses, no peritoneal signs Ext - No edema Labs and images reviewed. Significant for leukocytosis, Pha=[id number] CT Abd with free intraperitoneal air, 10cm length of acut diverticulitis involving the proximal sigmoid, no abscess/obstruction Assessment/Plan:79 yo C male with ITP, incidental discovery of free intraperitoneal air most likely secondary to acute diverticulitis with perforation. Patient is afebrile, HD stable, non-toxic in appearance. Abdominal exam is benign -Admit to medical floor - conservative management with NPO, IVF, IV abx Cefepime/Flagyl, serial abdominal exams -Appreciate Surgical assistance - no need for urgent intervention at this time -Continue steroid taper - if patient becomes acutely ill or hypotensive will increase to stress dosed steroids -CAD with recent stent placement 02/2019, history of in-stent stenosis - will maintain on DAPT with ASA and Brillinta -Remainder of plan as above Subjective The patient was seen and examined this morning. Pt states he is doing very well today. 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 He was supposed to have a splenectomy next after meeting with a surgeon on Sunday and had a follow up abd/pelvis CT scan, which was done here at [facility], thus showing free air within the abdomen leading to his hospitalization. He is currently being treated for diverticulosis and microperforation with IV cefepime and flagyl. He has been afebrile since coming in, VSS, no complaints of abdominal pain, distension, pressure. Has not passed flatus or had a BM yet, last BM was yesterday morning. The last time he ate was on 08/07 around 2pm before presenting to the ER. He has no other acute complaints. Pt feels very good, and honestly would not have known anything was wrong had his doctor not told him to go to the ER because of the CT scan. Physical Exam Constitutional: WD/WN, vitals as above well developed and well nourished Eyes: PERRL, conjunctivae normal, anicteric sclerae ENMT: external ear and nose normal, oropharynx normal Neck: trachea midline, no thyromegaly Respiratory: normal respiratory effort, lungs clear to auscultation Cardiovascular: Rate/Rhythm: regular rate and regular rhythm Gastrointestinal (Abdomen): Percussion/Palpation: abdomen soft NT, ND , BS + Skin: no rashes, warm and dry Neurologic: patellar DTR's 2+ bilat, sensation intact Psychiatric: Orientation: alert and oriented x 3 Results & Data Vital Signs (Past 12 Hours) Vital Signs Temp Pulse Resp BP BP Pulse Ox 08/10/19 07:22 36.4 C L 65 16 161/82 H 167/88 H 97 (1) Diverticulitis of colon with perforation Diverticulitis bleeding: without bleeding Qualified Code(s): K57.20 - Diverticulitis of large intestine with perforation and abscess without bleeding
[2019-08-10] MEDS ORDERED: FINASTERIDE 5 MG TAB PO SCH (21:00)
[2019-08-10] MEDS ORDERED: TAMSULOSIN HCL 0.4 MG CAP PO SCH (21:00)
[2019-08-11] MEDS: metroNIDAZOLE 500 MG/100 ML BAG IV SCH (05:39)
[2019-08-11 06:49] LABS: Albumin Level 2.3 gm/dl (3.4-5.0); BUN Creatinine Ratio 26.2 (10-20); Calcium 8.4 mg/dl (8.5-10.1); Creatinine Clr Calc Pharmacy 53.2 ml/min; Est GFR (Non-African American) 70.8; Potassium 3.6 mmol/L (3.5-5.1)
[2019-08-11 06:52] LABS: Albumin Globulin Ratio 0.7 (0.9-2); Bilirubin,Total 1.1 mg/dl (0.2-1); Globulin 3.5 gm/dl (2.5-4.0); Total Protein 5.8 gm/dl (6.4-8.2)
[2019-08-11 07:50] LABS: Hematocrit (blood only) 41.4 % (42-52); Hemoglobin 13.9 g/dL (14.0-18.0); Mean Corpuscular Hemoglobin 32.1 pg (25-34); Mean Corpuscular Hgb Conc 33.6 g/dL (32-36); Mean Corpuscular Volume 95.6 fL (80-100); RDW Coefficient of Variation 14.9 % (11.5-14.5); RDW Standard Deviation 52.3 fL (36.4-46.3); Red Blood Count 4.33 M/uL (4.7-6.1)
[2019-08-11 07:56] LABS: ALC (manual) 0.31 K/uL (1.2-3.4); ANC (manual) 9.24 K/uL (1.4-6.5); Lymphocytes # (manual) 0.31 K/uL (1.2-3.4); Lymphocytes % (manual) 2.9 %; Monocytes # (manual) 1.14 K/uL (0.11-0.59); Monocytes % (manual) 10.7 %; Neutrophils # (manual) 9.24 K/uL (1.4-6.5); Neutrophils % (manual) 86.4 %
[2019-08-11] MEDS: TICAGRELOR 90 MG TAB PO SCH (08:56)
[2019-08-11] MEDS: METOPROLOL SUCC 50MG EXT REL TAB PO SCH (08:56)
[2019-08-11] MEDS: ASPIRIN 81 MG ECTAB PO SCH (08:56)
[2019-08-11] MEDS: predniSONE 20 MG TAB PO SCH (08:56)
[2019-08-11] MEDS: predniSONE 5 MG TAB PO SCH (08:57)
[2019-08-11] MEDS: LOSARTAN POTASSIUM 25 MG TAB PO SCH (08:57)
[2019-08-11] MEDS: CEFEPIME 2,000 MG in SYRINGE 7.5 ML IV SCH (10:24)
--- NOTE | 2019-08-11 11:15 | Surgery Progress Note ---
Date of Service doing fine, no abdominal pain, tolerated diet, no fever, August 11, 2019 Assessment & Plan (1) Diverticulitis of colon with perforation: 08/09/2019 10 :AM doing fine, no abdominal pain, clear diet today, repeat labs in am, will F/U 08/10/2019, 11:57am doing fine, regular diet possible Discharge home today or tomorrow, f/u his surgeon in 1 week, 08/11/2019 11:14am doing fine, pt can be discharged home today, Supervising Physician Co-Signing Physician Notes Mr. Tamayo is a pleasant 79yo C male with history of ITP with failed IVIG tx, CAD s/p PCI to Cx and RCA, history of in-stent thrombosis, HTN. Patient is tentatively scheduled for splenectomy for ITP management - had a pre-operative CT Abdomen performed which revealed free subdiaphragmatic air. Patient had only few episodes of very mild abdominal pain, otherwise no complaints. He is on high dose slow-taper of Prednisone which has him feeling quite energized, unable to sleep at times. On exam he is afebrile, bradycardic and hypertensive, pleasant, NAD Skin - intact, no rash HEENT - NC/AT, PERRL, EOMI, MMM, Neck supple Heart - +S1/S2, regular, no m/r/g Lungs - CTA Abd - +BS, soft, NT/ND, no masses, no peritoneal signs Ext - No edema Labs and images reviewed. Significant for leukocytosis, Qse=494 CT Abd with free intraperitoneal air, 10cm length of acut diverticulitis involving the proximal sigmoid, no abscess/obstruction Assessment/Plan:79 yo C male with ITP, incidental discovery of free intraperitoneal air most likely secondary to acute diverticulitis with perforation. Patient is afebrile, HD stable, non-toxic in appearance. Abdominal exam is benign -Admit to medical floor - conservative management with NPO, IVF, IV abx Cefepime/Flagyl, serial abdominal exams -Appreciate Surgical assistance - no need for urgent intervention at this time -Continue steroid taper - if patient becomes acutely ill or hypotensive will increase to stress dosed steroids -CAD with recent stent placement 02/2019, history of in-stent stenosis - will maintain on DAPT with ASA and Brillinta -Remainder of plan as above Subjective The patient was seen and examined this morning. Pt states he is doing very well today. 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 He was supposed to have a splenectomy next after meeting with a surgeon on Sunday and had a follow up abd/pelvis CT scan, which was done here at [facility], thus showing free air within the abdomen leading to his hospitalization. He is currently being t reated for diverticulosis and microperforation with IV cefepime and flagyl. He has been afebrile since coming in, VSS, no complaints of abdominal pain, distension, pressure. Has not passed flatus or had a BM yet, last BM was yesterday morning. The last time he ate was on 08/07 around 2pm before presenting to the ER. He has no other acute complaints. Pt feels very good, and honestly would not have known anything was wrong had his doctor not told him to go to the ER because of the CT scan. Physical Exam Constitutional: WD/WN, vitals as above well developed and well nourished Eyes: PERRL, conjunctivae normal, anicteric sclerae ENMT: external ear and nose normal, oropharynx normal Neck: trachea midline, no thyromegaly Respiratory: normal respiratory effort, lungs clear to auscultation Cardiovascular: Rate/Rhythm: regular rate and regular rhythm Gastrointestinal (Abdomen): Percussion/Palpation: abdomen soft NT, ND, no distend Skin: no rashes, warm and dry Neurologic: patellar DTR's 2+ bilat, sensation intact Psychiatric: Orientation: alert and oriented x 3 Results & Data Vital Signs (Past 12 Hours) Vital Signs Temp Pulse Resp BP Pulse Ox 08/11/19 07:04 36.7 C 90 18 166/80 H 93 08/10/19 23:45 176/87 H (1) Diverticulitis of colon with perforation Diverticulitis bleeding: without bleeding Qualified Code(s): K57.20 - Diverticulitis of large intestine with perforation and abscess without bleeding
[2019-08-11] MEDS ORDERED: metroNIDAZOLE 500 MG TAB PO SCH (14:00)
--- NOTE | 2019-08-11 16:44 | Discharge Summary ---
Date of Service August 11, 2019 Admission HPI Per Admitting Provider Patient is a pleasant 79 year old male with PMHx ITP, S/P Coronary Stent 02/2019, 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 Patient notes that he had gone in on Sunday of this week for an appointment regarding a splenectomy originally scheduled for 08/14/19. As he was unable to get an Ab/Pelv Ct scan at that time, he had one completed today which showed an incidental finding of free intraperitoneal air. While the etiology is unclear, it appeared it may have been related to a 10 cm length of acute diverticulitis involving the proximal sigmoid. Patient notes that he has not had any abdominal pain, discomfort, diarrhea, nausea, vomiting, or difficulties with eating. He also denies any abdominal distension, fever, or chills. Of note, patient states that he was diagnosed with ITP roughly 2.5 years ago and has been dealing with it since with the current plan for splenectomy being his next course of action. He has been taking Prednisone 75mg daily for at least the past month and recently this past week had reduced to 65mg with plans to reduce to 60mg by 08/10/19 prior to the splenectomy. Patient notes he otherwise feels well currently. Principal Diagnosis Diverticulitis with perforation Discharge Exam Constitutional WD/WN, vitals as above Eyes EOM intact bilaterally; no conjunctival abnormality ENMT external ear and nose normal, oropharynx normal Neck trachea midline, no thyromegaly normal visual inspection Respiratory normal respiratory effort, lungs clear to auscultation no respiratory distress Cardiovascular RRR, no murmur, no edema Gastrointestinal (Abdomen) Inspection/Auscultation: abdomen normal to inspection and normal bowel sounds; abdomen not distended Percussion/Palpation: abdomen soft; abdomen nontender, no guarding and abdomen not rigid Musculoskeletal no cyanosis or clubbing, extremities motor strength 5/5 Skin no rashes, warm and dry Neurologic moves all extremities and awake Psychiatric Orientation: alert, oriented to person and cooperative Discharge Data Allergies Allergy/AdvReac Type Severity Reaction Status Date / Time Bactrim Allergy Severe HIVES, Verified 07/27/17 10:29 INTERFERES WITH IMMUNE SYSTEM Cipro Allergy Severe MUSCLE Verified 07/27/17 10:29 PROBLEMS ciprofloxacin Allergy Severe MUSCLE Verified 08/08/19 21:15 PROBLEMS morphine Allergy Severe HALLUCINATI Verified 08/08/19 21:15 ONS sulfamethoxazole Allergy Severe HIVES, Verified 08/08/19 21:15 INTERFERES WITH IMMUNE SYSTEM trimethoprim Allergy Severe HIVES, Verified 08/08/19 21:15 INTERFERES WITH IMMUNE SYSTEM Consultations 08/08/19 20:45 ED Decision to Admit Stat 08/08/19 23:05 Consult General Surgery Routine Hospital Course (1) Diverticulitis of colon with perforation: Clinically stable/improving. No pain; eating well. * CT Abdomen noted free intraperitoneal air and 10cm length of acute diverticulitis involving the proximal sigmoid. * Continue abx therapy with Augmentin x 7 more days. * General surgery consulted - no surgical intervention at this time. * Discussed with general surgery at [place] who didn't feel he needed repeat imaging prior to discharge. Will get additional imaging as an outpatient prior to his splenectomy. 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 * -Was scheduled for Splenectomy on 08/14/19 at [facility] [place] [facility] * -Continue Prednisone 65mg daily * - Discussed with Dr. Judd from [place] who is also involved at times. Will follow up as needed with her and with Ms. Collins at [facility]. (3) Lymphoma: * Follows with [facility] Tayla Collins. (4) S/P coronary artery stent placement: * Hx in stent thrombosis. * Continue ASA, Brillinta (5) Hypertension: * Had held metoprolol and losartan on admission - BP elevated and resumed on 08/08 * Continue to monitor (6) CAD (coronary artery disease): * continue ASA 81mg daily * Continue Brilinta 90 mg BID * Continue atorvastatin (7) GERD (gastroesophageal reflux disease): * Stable (8) BPH w urinary obs/LUTS: * Resumed home flomax, finasteride (9) Elevated bilirubin: * Tbili 1.1 on AM labs. Remainder of LFTs wnl. Likely congestions secondary to above * Denied abdominal pain, non-tender on exam * Stable (10) Hypokalemia: * K 3.4 -- replaced * Continue to monitor (11) DVT prophylaxis: * teds, scds, brillinta/asa Total Time Total Time Spent Total Time Spent (In Minutes): 35 Discharge Plan Discharge Items Patient Disposition: Home - Self-Care Reason For Visit: FREE INTRAPERITONEAL AIR Discharge Diagnosis: Diverticulitis with perforation Activity: Resume your previous activity Non-emergency contact: Primary Care Provider, Surgeon and Oncologist Call non-emergency contact if: your symptoms worsen and your temperature is above 101 Follow-up/Referrals: Vani Mauro [Primary Care Provider] - 08/18/19 10:50 am Tayla Alford CRNP [Nurse Practitioner] - 08/15/19 11:30 am Diet: Heart Healthy Addtl Attending Provider Instructions: Mr. Tamayo, You were admitted to the hospital after a CT scan from your surgeon showed some air in the abdomen (which is not supposed to be there) as well as inflammation in the colon. You had NO symptoms from this which may be due to the fact that you're on the prednisone for your ITP. Please take the Augmentin antibiotic 2 times per day (once in the morning and once in the evening). Your first dose should be tonight before bedtime. Please see Dr. Talley in the next 1-2 weeks to be sure he feels you're doing well and can proceed with surgery. It would be ideal to see him prior to finishing your antibiotic course; however, I know this is easier to say than do given he is in [place]. Dr. Talley did not feel you needed another CT scan today, but will get another one prior to your splenectomy in September. At the least, please see your PCP this week or early next to be sure you are feeling well. You can also follow up with [facility] to be sure you are doing your steroid taper appropriately and that your platelets remain stable. Pending Studies at Discharge: No Stand-Alone Forms: My [employer], Smoking Cessation Medications and DC Order Prescriptions: New amoxicillin-pot clavulanate [Augmentin] 875-125 mg tablet 1 tab PO BID Qty: 15 RF: 0 Continued losartan 25 mg tablet 25 mg PO DAILY Qty: 90 RF: 3 tamsulosin [Flomax] 0.4 mg capsule 0.4 mg PO QPM Qty: 90 RF: 1 atorvastatin 40 mg tablet 80 mg PO QPM RF: 0 metoprolol succinate 50 mg tablet extended release 24 hr 50 mg PO DAILY RF: 0 ticagrelor 90 mg tablet 90 mg PO BID RF: 0 acetaminophen [Tylenol Extra Strength] 500 mg Tablet 1,000 mg PO Q6H PRN (Reason: Pain) RF: 0 aspirin [Ecotrin Low Strength] 81 mg Tablet,Delayed Release (Dr/Ec) 81 mg PO QAM Qty: 0 RF: 0 nitroglycerin [Nitrostat] 0.4 mg Tablet, Sublingual 0.4 mg sublingual UD PRN (Reason: chest pain) Qty: 30 RF: 0 prednisone 20 mg Tablet 65 mg PO UD RF: 0 finasteride 5 mg tablet 5 mg PO QPM RF: 0 Discharge Orders: Discharge Order (Routine); Ordered 08/11/19 Ordered By: Bernabe Pan/Other Patient Handouts: Appendectomy, Discharge Instructions for Immune Thrombocytopenia Purpura ITP Admission Data Admit Date/Time: 08/08/19 21:39 Attending Provider: Bernabe Garcia Admit Provider: Christina Bartholomew Primary Care Provider: Vani Mauro Other Providers: Zulema Matias ; Bernabe Garcia Other Interventions: Discharge Summary Assessment (RN) Last Done: 08/11/19 13:18 DC Date/Time DO NOT enter until pt leaves facility: 08/11/19 15:22 Coding Level of Care Code D/C Day Management >30 mins Diagnoses Diverticulitis of colon with perforation K57.20 Diverticulitis bleeding: without bleeding Chronic ITP (idiopathic thrombocytopenia) D69.3 Lymphoma C85.90 S/P coronary artery stent placement Z95.5 Hypertension I10 CAD (coronary artery disease) I25.119 Associated angina: with unspecified angina Coronary Disease-Associated Artery/Lesion type: unspecified vessel or lesion type [place] vs. transplanted heart: [place] heart GERD (gastroesophageal reflux disease) K21.9 BPH w urinary obs/LUTS N40.1; N13.8 Elevated bilirubin R17 Hypokalemia E87.6 DVT prophylaxis Z29.9
== END 2019-08-11 15:22 | disposition home or self-care (01) | DRG 392 ==
LOC: ED 18:46 → 3N 21:39 → SUATTDRO 21:39 → 3N 23:00

== ENCOUNTER 2020-04-22 11:26 | Observation (INO) ==
--- NOTE | 2020-04-06 13:56 | PAT Medication Instructions ---
Medication Instructions Date of Service April 06, 2020 Home Medications Medication Instructions Recorded aspirin [Ecotrin Low Strength] 81 mg PO QAM #0 tab 02/25/19 finasteride 5 mg tablet 5 mg PO DAILY #90 tab 12/12/19 tamsulosin 0.4 mg capsule 0.4 mg PO QPM #90 cap 12/12/19 nitroglycerin 0.4 mg sublingual 0.4 mg SUBLINGUAL UD PRN #30 tab 01/01/20 tablet atorvastatin 80 mg tablet 80 mg PO HS #90 tab 02/09/20 ticagrelor 60 mg tablet 60 mg PO BID #180 tab 03/31/20 acetaminophen [Tylenol Extra Strength] 1,000 mg PO Q6H PRN aspirin [Ecotrin Low Strength] 81 mg PO QAM metoprolol succinate 50 mg tablet,extended release 24 hr 50 mg PO QAM losartan 25 mg PO QAM finasteride 5 mg tablet 5 mg PO DAILY tamsulosin 0.4 mg capsule 0.4 mg PO QPM nitroglycerin 0.4 mg sublingual tablet 0.4 mg SUBLINGUAL UD PRN atorvastatin 80 mg tablet 80 mg PO HS ticagrelor 60 mg tablet 60 mg PO BID ticagrelor [Brilinta] 90 mg PO BID Continue as directed nitroglycerin 0.4 mg sublingual tablet 0.4 mg SUBLINGUAL UD PRN ASK your prescriber and surgeon aspirin [Ecotrin Low Strength] 81 mg PO QAM ticagrelor 60 mg tablet 60 mg PO BID ticagrelor [Brilinta] 90 mg PO BID DO NOT take the morning of surgery losartan 25 mg PO QAM Take morning of surgery With a small sip of water, OTHERWISE NOTHING TO EAT OR DRINK AFTER MIDNIGHT: acetaminophen [Tylenol Extra Strength] 1,000 mg PO Q6H PRN (if needed, may be taken up to four hours before surgery) metoprolol succinate 50 mg tablet,extended release 24 hr 50 mg PO QAM finasteride 5 mg tablet 5 mg PO DAILY Take evening before surgery acetaminophen [Tylenol Extra Strength] 1,000 mg PO Q6H PRN (if needed) tamsulosin 0.4 mg capsule 0.4 mg PO QPM atorvastatin 80 mg tablet 80 mg PO HS Other Notes If you have any questions please call us at [phone] or [phone] or [phone] or [phone]
--- NOTE | 2020-04-08 10:56 | Anesthesiology Consultation ---
Date of Service April 08, 2020 Assessment & Plan (1) Encounter for pre-operative examination: COVID Status: As of 04/08 assessment, patient denies travel to endemic area, known exposure/sick contacts, or symptoms of COVID19. Patient instructed that they and their household members must follow strict social distancing guidelines, wear a mask in public and avoid travel/events/gatherings for 14 days prior to surgery. Preoperative COVID19 testing to be completed prior to surgery per surgeon's arrangements. Patient made aware to self-isolate as much as possible between COVID testing and surgery. Most recent cardiology office visit 02/09/20. Conditions stable, "Despite regular cardiovascular exercise, no angina or heart failure symptoms." No medication changes, to f/u in 6 months. Chart Review Chart Review: Acceptable Risk for Surgery and Patient seen in Pre Admission Testing Teaching & Discussion Instructed NPO after midnight before surgery, except medications with 15 cc of water. Medication instructions provided according to the PAT guidelines. Patient already notified by surgeon/cardio OK to hold Brillinta x 7 days prior to surgery. Pt to continue ASA uninterrupted. History Surgery Operation Date: 04/22/20 07:15 Proposed Procedures p Transurethral Resection Prostate, - Dagoberto Paris DO s and Resection of Bladder Tumor - Dagoberto Paris, Height/Weight Height: 5 ft 6 in Weight: 76.2 kg Allergies Allergy/AdvReac Type Severity Reaction Status Date / Time ciprofloxacin Allergy Severe MUSCLE Verified 04/02/20 09:24 PROBLEMS--split tendons sulfamethoxazole Allergy Severe HIVES, Verified 04/02/20 09:24 INTERFERES WITH IMMUNE SYSTEM trimethoprim Allergy Severe HIVES, Verified 04/02/20 09:24 INTERFERES WITH IMMUNE SYSTEM morphine Allergy Intermediate HALLUCINATI Verified 04/02/20 09:24 ONS Medications Home Medications Medication Instructions Recorded Confirmed Last Taken acetaminophen [Tylenol Extra 1,000 mg PO Q6H PRN 02/23/19 04/02/20 11/11/19 Strength] aspirin [Ecotrin Low Strength] 81 mg PO QAM #0 tab 02/25/19 04/02/20 11/14/19 metoprolol succinate 50 mg 50 mg PO QAM 04/09/19 04/02/20 11/14/19 tablet,extended release 24 hr losartan 25 mg PO QAM 11/07/19 04/02/20 11/14/19 finasteride 5 mg tablet 5 mg PO DAILY #90 tab 12/12/19 04/02/20 Unknown tamsulosin 0.4 mg capsule 0.4 mg PO QPM #90 cap 12/12/19 04/02/20 Unknown nitroglycerin 0.4 mg sublingual 0.4 mg SUBLINGUAL UD PRN #30 tab 01/01/20 04/02/20 Unknown tablet atorvastatin 80 mg tablet 80 mg PO HS #90 tab 02/09/20 04/02/20 Unknown ticagrelor 60 mg tablet 60 mg PO BID #180 tab 03/31/20 Unknown ticagrelor [Brilinta] 90 mg PO BID 04/02/20 04/02/20 Unknown Past Medical History Medical History BPH (benign prostatic hyperplasia) CAD (coronary artery disease) S/P TONIA x 5. Presented with NSTEMI 02/23/19 and had single TONIA to Cx. Returned with chest pain 02/27 and found to have thrombosed stent, required additional PCI x 4. Chronic ITP (idiopathic thrombocytopenia) IVIG TREATMENTS IN PAST Coronary stent thrombosis Single stent placed 02/23/19. Four more stents placed 02/27, and thrombus found. Likely 2/2 Diverticulitis of colon with perforation Found incidentally 08/2019 when pt had pre-op CT scan prior to splenectomy. Micro-perforation with free air in abdomen. Admitted to [place] for eval, felt non-surgical. Returned to ED a few days after discharge with BRBPR, surgical intervention considered, but pt ultimately transferred to [facility] and had abdominal drainage catheter placed (abscess?) GERD (gastroesophageal reflux disease) MILD History of kidney stones Hypertension Left pontine stroke 05/22/19. Per neurology consult, treatment of ITP with IVIG likely contributed. Very mild deficits at the time, now fully recovered. Lymphoma Dx 2016, low grade Non-hodgkins, asymptomatic. Mitral regurgitation Non-ST elevation (NSTEMI) myocardial infarction 02/2019--had cardiac cath with 5 stents placed--follows with Dr. Sorenson Rheumatoid arthritis Exercise / Class Metabolic Activity II 4-5 Yardwork/Stairs/Walk up hill (Denies CP or SOB with 1 FOS) Past Family History Family History Father Cancer Other Hypertension Kidney disease No family history of adverse response to anesthesia Past Surgical History Surgical History History of appendectomy History of cardiac cath 02/27/2019 @ [facility] [address] 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 Hines @ [facility] Past Anesthesia History No Hx of Anesthesia Complications and No Family Hx of Anesthesia Complications History of PONV No Hx of PONV and Hx of Motion Sickness (sea sick only) Social History Smoking Status: Never smoker Do You Dip or Chew Tobacco: No Hx Alcohol Use: Yes Alcohol type: wine alcohol intake frequency: a few times a week Hx Substance Use: No substance use type: does not use Review of Systems Pt denies any recent chest pain, shortness of breath, palpitations, cough, fever, URI, or uncontrolled acid reflux. Physical Exam Vital Signs BP: 184/95 P: 73bpm SPO2: 97% RA T: 98.3 F R: 12 Constitutional Appears younger than stated age. ENMT Mouth: + small oral opening; no dental restorations, no chipped teeth and no loose teeth Thyromental Distance: > or= 3.5 Finger Breadths Mallampati Class: III Pt has a sore rear molar on R side, is seeing dentist today 2/4. Neck + short neck and + limited neck extension Respiratory normal respiratory effort, lungs clear to auscultation Cardiovascular RRR, no murmur, no edema Vessels: no carotid bruit Testing Laboratory Results 04/08/20 11:07 04/08/20 11:07 Urine Color Yellow 04/08/20 Unknown Urine Appearance Clear (Clear) 04/08/20 Unknown Urine pH 6.0 (4.5-7.5) 04/08/20 Unknown Ur Specific [place] 1.014 (1.000-1.030) 04/08/20 Unknown Urine Protein Negative (Negative) 04/08/20 Unknown Urine Glucose (UA) Negative (Negative) 04/08/20 Unknown Urine Ketones Negative (Negative) 04/08/20 Unknown Urine Nitrite Negative (Negative) 04/08/20 Unknown Ur Leukocyte Esterase Negative (Negative) 04/08/20 Unknown Platelet count (citrate) 215k Electrocardiogram Date: 05/22/19 Findings: + NSR @ (61bpm) Moderate voltage criteria for LVH, may be normal variant. Inferior infarct (cited on or before 02/17/2017). Chest X-Ray Date: 08/13/19 Findings: + NAD Echocardiogram Date: 02/27/19 EF: 55-60% Normal LV size and systolic function. Akinesis of the inferolateral wall. Mild concentric LVH. Mild left atrial dilation. Limited 2D echo as per request. Technically difficult study, enhanced with IV Definity. Compared to prior study on 02/23/2019, inferolateral wall motion abnormality remains, however now appearing akinetic. Echocardiogram done 02/23/19 included evaluation of valvular structures as follows: Mild aortic regurgitation. Moderate mitral regurgitation. Normal estimated RVSP at 34 mmHg. Other Testing Cardiac Catheterization 02/27/19 Findings: LM -luminal irregularities LAD -medium caliber, diffuse 30 to 40% proximal to mid disease, distal luminal irregularities as wraps around apex. Medium first diagonal with 30% ostial stenosis Circumflex -medium caliber, mid circumflex stent occluded 100% proximally. Distal vessel fills via right to left collaterals RCA -dominant, mild diffuse proximal mid disease, 90% focal mid stenosis after RV branch, 95% latemid stenosis, 99% focal stenosis in distal segment just bef ore takeoff of PDA. LVEDP - 4 -- PCI of mid circumflex subacute stent thrombosis-- Antithrombotic therapy: Heparin, ticagrelor Procedure: Left main cannulated with EBU 3.5 guide [employer] 50 wire passed across occlusion into distal vessel Mid circumflex in-stent occlusion predilated with 2.0 and 2.5 compliant balloons Stent post-dilated with 2.75 noncompliant balloon Residual stenosis at distal aspect of prior stent covered with 2.25 x 8 mm Xience drug-eluting stent Stent postdilated with stent balloon IC vasodilators administered for spasm IVUS used to assess stent apposition and possible residual disease upstream from initial stent. Stents shown to be well expanded with no in-stent disease. Minimal residual disease proximal to initial stent. Post procedure TRISTON 3 flow, stent well expanded with minimal residual stenosis and no apparent cardiac complications. PCI of mid to distal RCA -- RCA cannulated with JR4 guide [employer] Claims [employer]st 50 passed across mid RCA disease into distal vessel Mid and distal lesions dilated with 2.5 balloon With the aid of a guide liner 2.75 x 38 mm Xience Jenni drug-eluting stent deployed from latemid RCA to distal RCA just before takeoff of PDA Second TONIA placed in mid segment 2.75 x 18 mm Xience Jenni Stents postdilated with stent balloon. Concern for proximal edge dissection Third drug-eluting stent placed to mid RCA 2.75 x 8 Xience Jenni Stents dilated with 275 NC balloon Post procedure TRISTON 3 flow, stent well expanded with minimal residual stenosis and no apparent cardiac complications. Arterial Closure: TR band Summary: 1. Severe multivessel coronary artery disease -100% mid circumflex subacute stent thrombosis. OM/PLB fill via right to left collaterals 3 sequential 90+% mid to distal RCA lesions 2. Normal intracardiac filling pressure 3. Successful PCI of mid circumflex stent occlusion with stent post dilation and additional TONIA overlapping distal aspect of prior stent (2.25 x 8 Xience Jenni). 4. Successful PCI of mid to distal RCA with 3 overlapping drug-eluting stents (2.75 x 8, 2.75 x 18, 2.75 x 38 Xience Jenni).
[2020-04-08 11:34] LABS: Appearance Urine Clear (Clear); Bilirubin Urine Negative (Negative); Blood Urine Negative (Negative); Color Urine Yellow; Glucose Urine UA Negative (Negative); Ketones Urine Negative (Negative); Leukocyte Esterase Urine Negative (Negative); Nitrite Urine Negative (Negative); Protein Urine Negative (Negative); Specific Gravity Urine 1.014 (1.000-1.030); Urobilinogen Urine Negative (Negative)
[2020-04-08 12:27] LABS: Hematocrit (blood only) 40.2 % (42-52); Hemoglobin 13.3 g/dL (14.0-18.0); Mean Corpuscular Hemoglobin 29.2 pg (25-34); Mean Corpuscular Hgb Conc 33.1 g/dL (32-36); Mean Corpuscular Volume 88.2 fL (80-100); RDW Coefficient of Variation 17.1 % (11.5-14.5); RDW Standard Deviation 55.3 fL (36.4-46.3); Red Blood Count 4.56 M/uL (4.7-6.1); White Blood Count 8.34 K/uL (4.8-10.8)
[2020-04-08 13:03] LABS: BUN Creatinine Ratio 18.3 (10-20); Calcium 9.7 mg/dl (8.5-10.1); Creatinine Clr Calc Pharmacy 41.5 ml/min; Est GFR (African American) 60.9; Est GFR (Non-African American) 52.5
[2020-04-08 13:07] LABS: ANC (manual) 5.84 K/uL (1.4-6.5); Acanthocytes 1+; Anisocytosis Present; Basophils # (manual) 0.08 K/uL (0-0.2); Echinocytes 1+; Monocytes # (manual) 0.92 K/uL (0.11-0.59); Neutrophils # (manual) 5.84 K/uL (1.4-6.5); Poikilocytosis Present
[~2020-04-22 11:26] MED LIST changes: -AMLO-114 PO; -AMOX875T PO; -ATEN50TA8 PO; -FLM4 PO; +LR 15ML/HR IV SCH; +[UNRECOGNIZED DRUG - REMARK] SCH
[2020-04-22] MEDS ORDERED: NITROGLYCERIN SL 0.4 MG/TAB TAB SL PRN (12:43)
--- NOTE | 2020-04-22 12:43 | History & Physical Report ---
Date of Service April 22, 2020 Assessment & Plan (1) BPH w urinary obs/LUTS: Risks and benefits discussed at length for procedure. These include bleeding, infection, injury to surrounding tissues or organs, and risks associated with anesthesia. Patient states understanding and agrees to proceed. Will sign consent and proceed Plan for TURP with possible resection of bladder. History of Present Illness Primary Care Provider: Vani Mauro Patient here for procedure. No changes in medical issues. No major changes in urinary issues. Continued issues and concerns. No change in pain or discomfort. No severe fevers or chills. No chest pain or shortness of breath. Risks and benefits discussed at length for procedure. These include bleeding, infection, injury to surrounding tissues or organs, and risks associated with anesthesia. Patient and/or family states understanding and agrees to proceed. Consent and supporting information completed. Allergies Allergy/AdvReac Type Severity Reaction Status Date / Time ciprofloxacin Allergy Severe MUSCLE Verified 04/22/20 11:56 PROBLEMS--split tendons sulfamethoxazole Allergy Severe HIVES, Verified 04/22/20 11:56 INTERFERES WITH IMMUNE SYSTEM trimethoprim Allergy Severe HIVES, Verified 04/22/20 11:56 INTERFERES WITH IMMUNE SYSTEM morphine Allergy Intermediate HALLUCINATI Verified 04/22/20 11:56 ONS Home Medications Medication Instructions Recorded Confirmed Type acetaminophen [Tylenol Extra 1,000 mg PO Q6H PRN 02/23/19 04/22/20 History Strength] aspirin [Ecotrin Low Strength] 81 mg PO QAM #0 tab 02/25/19 04/22/20 Rx metoprolol succinate 50 mg 50 mg PO QAM 04/09/19 04/22/20 History tablet,extended release 24 hr losartan 25 mg PO QAM 11/07/19 04/22/20 History finasteride 5 mg tablet 5 mg PO DAILY #90 tab 12/12/19 04/22/20 Rx tamsulosin 0.4 mg capsule 0.4 mg PO QPM #90 cap 12/12/19 04/22/20 Rx nitroglycerin 0.4 mg sublingual 0.4 mg SUBLINGUAL UD PRN #30 tab 01/01/20 04/22/20 Rx tablet atorvastatin 80 mg tablet 80 mg PO HS #90 tab 02/09/20 04/22/20 Rx ticagrelor [Brilinta] 90 mg PO BID 04/02/20 04/22/20 History ticagrelor [Brilinta] 60 mg PO BID 04/22/20 04/22/20 History Past Med/Surg History Medical History BPH (benign prostatic hyperplasia) CAD (coronary artery disease) S/P TONIA x 5. Presented with NSTEMI 02/23/19 and had single TONIA to Cx. Returned with chest pain 02/27 and found to have thrombosed stent, required additional PCI x 4. Chronic ITP (idiopathic thrombocytopenia) IVIG TREATMENTS IN PAST Coronary stent thrombosis Single stent placed 02/23/19. Four more stents placed 02/27, and thrombus found. Likely 2/2 Diverticulitis of colon with perforation Found incidentally 08/2019 when pt had pre-op CT scan prior to splenectomy. Micro-perforation with free air in abdomen. Admitted to [place] for eval, felt n on-surgical. Returned to ED a few days after discharge with BRBPR, surgical intervention considered, but pt ultimately transferred to [facility] and had abdominal drainage catheter placed (abscess?) History of kidney stones Hypertension Left pontine stroke 05/22/19. Per neurology consult, treatment of ITP with IVIG likely contributed. Very mild deficits at the time, now fully recovered. Lymphoma Dx 2016, low grade Non-hodgkins, asymptomatic. Mitral regurgitation Non-ST elevation (NSTEMI) myocardial infarction 02/2019--had cardiac cath with 5 stents placed--follows with Dr. Sorenson Rheumatoid arthritis Surgical History History of appendectomy History of cardiac cath 02/27/2019 @ [facility] [address] 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 Hines @ [facility] Family History Father Cancer Other Hypertension Kidney disease No family history of adverse response to anesthesia Social History Smoking Status: Never smoker Tobacco Type: Cigarettes Second Hand Exposure: No; Do You Dip or Chew Tobacco: No; Hx Alcohol Use: Yes Alcohol type: wine Hx Substance Use: No Preferred Language: Maltese Communication Ability: Effective Visual Impairment: No Limitations Punch Finisher Required: No Beliefs That Will Affect Care: None marital status: Current Living Situation: Spouse Feels Safe at Home: Yes Safety Concerns: Feels Safe At This Time Assistive Devices: Glasses Review of Systems All systems reviewed & are unremarkable except as noted in HPI & below Physical Exam Physical Exam: General: Alert/Arousable. No Acute illness. . HEENT: Inspection normal. Normal inspection of face. Normal inspection of neck. Psychologic: Normal affect/No change in mentation. Respiratory: No use of accessory muscles. No respiratory changes or exacerbation or changes with tachypnea or dyspnea. Cardiovascular: No tachycardia Skin: [place] and Dry. No new rashes or visible lesions. Abdomen: Normal inspection. No guarding. Results & Data ([facility]) Vital Signs (Past 12 Hours) Vital Signs Temp Pulse Resp BP Pulse Ox 04/22/20 12:01 36.6 C 65 20 175/87 H 98 PG Care Time/CCT Total # of Minutes Spent Total Time Spent with Patient: Total time spent is greater than 50% in coordination of care (as documented) at patient's floor/unit and/or counseling patient: Coding Level of Care Code 40519 Initial Inpt Care Lvl 3 Diagnoses BPH w urinary obs/LUTS N40.1; N13.8
[2020-04-22] MEDS ORDERED: MoRPHine SULFATE 2 MG/ML CARP IV PRN (12:44)
[2020-04-22] MEDS ORDERED: oxyCODONE/ACETAMINOPHEN 5mg/325mg TAB PO PRN (12:44)
[2020-04-22] MEDS ORDERED: ONDANSETRON INJ 2 MG/ML 2 ML VIAL IV PRN ×2 (12:44→15:24)
[2020-04-22] MEDS ORDERED: BELLADONNA/OPIUM SUPP 60 MG SUPP PR PRN (12:44)
[2020-04-22] MEDS ORDERED: PHENAZOPYRIDINE HCL 200 MG TAB PO PRN (12:44)
[2020-04-22] MEDS ORDERED: DEXAMETHASONE SOD INJ 4 MG/ML VIAL ONE (13:07)
[2020-04-22] MEDS ORDERED: fentaNYL citrate 100 MCG/2 ML VIAL ONE (13:07)
[2020-04-22] MEDS ORDERED: ONDANSETRON INJ 2 MG/ML 2 ML VIAL ONE (13:07)
[2020-04-22] MEDS ORDERED: ePHEDrine sulfate 50 MG/ML SYR ONE (13:07)
[2020-04-22] MEDS ORDERED: PHENYLEPHRINE 100MCG/ML 5ML SYR ONE (13:07)
[2020-04-22] MEDS ORDERED: PROPOFOL IV EMULSION 10 MG/ML 20 ML VIAL IV ONE (13:07)
[2020-04-22] MEDS ORDERED: LIDOCAINE HCL 2% 2 ML VIAL/AMP(20MG/ML) INFIL ONE (13:07)
[2020-04-22] MEDS ORDERED: BELLADONNA/OPIUM SUPP 60 MG SUPP PR STA (13:22)
[2020-04-22] MEDS ORDERED: PHENYLEPHRINE HCL 10 MG/ML VIAL ONE (14:51)
[2020-04-22] MEDS ORDERED: ATROPINE SULFATE 0.1 MG/ML 10ML SYR IV PRN (15:24)
[2020-04-22] MEDS ORDERED: fentaNYL citrate 100 MCG/2 ML VIAL IV PRN (15:24)
[2020-04-22] MEDS ORDERED: LABETALOL HCL IV 5 MG/ML 20ML IV PRN (15:24)
--- NOTE | 2020-04-22 17:12 | Operative Report ---
PG Post Operative Report Pre & Post Diagnosis Operation Date: 04/22/20 13:05 Pre-Op Diagnosis: Prostatitis Post-Op Diagnosis: Prostatitis I identified the patient and participated in the time-out.: Yes Procedure Operation Date: 04/22/20 13:05 Actual Procedures p Transurethral Resection Prostate(Not Applicable) - Dagoberto Paris DO Surgeon Dagoberto Paris, II, DO Manager Basketball None Estimated Blood Loss 15 Findings Consistent with Post-Op Diagnosis Large Prostate with extremely large median lobe with obstruction. Specimens Prostate adenoma. Drains 24Fr 3way Catheter Anesthesia Type General Complications none Disposition Disposition: Recovery Room Indications Patient with obstruction due to prostate enlargement. Risks and benefits discussed at length. Description of Procedure Patient was consented and brought back to the operating room. Patient was placed under anesthesia in the supine position and moved to the dorsal lithotomy position. Patient was prepped and draped in the regular sterile fashion. A time out was completed. A 30degree Cystoscope was placed into the bladder and the entire bladder was examined. The UO's were identified as well as the bladder neck, trigone, dome, and the other important landmarks. The prostatic urethra and large lobes/adenoma was assessed and the veru and bladder neck identified and area/size was assessed. The resection scope was placed and the fine bipolar loop was selected. Starting at the 5 and 7 o'clock positions, a channel was created from bladder neck to the veru. The channel was then used to resect the extremely large median lobe. With the channel formed, the right and left lateral lobes were resected starting at the 1 and 11 o'clock position to the capsule and then sweeping down to the median resection. The Specimen was removed and sent for analysis. The resection bed and any bleeding areas were fulgurated/cauterized and the entire area inspected. All bleeding was controlled. The bladder was inspected a final time. The bladder was emptied and irrigated. All specimen and debris was removed. The scope was removed with the bladder partially full. A [address] catheter was placed and balloon elevated. This was easily irrigated. The catheter was attached to CBI. The patient was cleaned, aroused from anesthesia, and transferred to the pacu in stable condition having tolerated the procedure well with no complications. I was present and participated in all aspects of the procedure. The patient will be monitored in the PACU until transferred. I attest to the content of the Intraoperative Record and any orders documented therein. Any exceptions are noted below.
--- NOTE | 2020-04-22 18:35 | Anesthesiology Progress Note ---
Date of Service April 22, 2020 Anesthesia Post Procedure Vital Signs Vital Signs: Temp Pulse Pulse Resp BP BP Pulse Ox 04/22/20 18:05 36.4 C L 69 14 160/72 H 72 L 04/22/20 17:55 71 14 151/80 H 170 H 04/22/20 17:45 36.4 C L 76 14 151/80 H 98 04/22/20 17:35 79 14 152/84 H 98 04/22/20 17:25 80 14 164/80 H 100 04/22/20 17:15 36.5 C 84 14 153/78 H 100 04/22/20 12:01 36.6 C 65 20 175/87 H 98 Transfer of Care Handoff Completed per policy Notes Mental Status: alert / awake / arousable Patient Amnestic to Procedure: Yes Nausea / Vomiting: adequately controlled Pain: adequately controlled Airway Patency, RR, SpO2: stable & adequate BP & HR: stable & adequate Hydration State: stable & adequate Anesthetic Complications: no major complications apparent
[2020-04-22] MEDS: SODIUM CHLORIDE 0.9% 1000ML 1,000 ML IV SCH (20:08)
[2020-04-22] MEDS: DOCUSATE SODIUM 100 MG CAP PO SCH (20:09)
[2020-04-22 20:10] LABS: BUN Creatinine Ratio 14.9 (10-20); Calcium 8.2 mg/dl (8.5-10.1); Creatinine Clr Calc Pharmacy 55.4 ml/min; Est GFR (African American) 86.2; Est GFR (Non-African American) 74.4; Potassium 3.6 mmol/L (3.5-5.1)
[2020-04-22] MEDS ORDERED: TAMSULOSIN HCL 0.4 MG CAP PO SCH (21:00)
[2020-04-22] MEDS ORDERED: ATORVASTATIN 40 MG TAB PO SCH (21:00)
[2020-04-22 21:35] LABS: Mean Corpuscular Hgb Conc 33.5 g/dL (32-36); Platelet Count 81 K/uL (130-400)
[2020-04-22 21:36] LABS: Basophils % (manual) 0.9 %; Echinocytes 1+; Eosinophils % (manual) 0.9 %; Lymphocytes % (manual) 13.9 %; Monocytes % (manual) 9.6 %; Neutrophils % (manual) 74.7 %; Schistocytes 1+; Target Cells 1+
[2020-04-22 21:37] LABS: Hematocrit (blood only) 37.6 % (42-52); Hemoglobin 12.6 g/dL (14.0-18.0); Mean Corpuscular Hemoglobin 29.7 pg (25-34); Mean Corpuscular Volume 88.7 fL (80-100); RDW Coefficient of Variation 17.1 % (11.5-14.5); RDW Standard Deviation 55.8 fL (36.4-46.3); Red Blood Count 4.24 M/uL (4.7-6.1); White Blood Count 11.51 K/uL (4.8-10.8)
[2020-04-22] MEDS: ceFAZolin 2000MG 2,000 MG/15 ML SYR IV SCH (23:36)
[2020-04-23] MEDS: ceFAZolin 2000MG 2,000 MG/15 ML SYR IV SCH (06:23)
[2020-04-23] MEDS: SODIUM CHLORIDE 0.9% 1000ML 1,000 ML IV SCH (07:51)
[2020-04-23] MEDS: DOCUSATE SODIUM 100 MG CAP PO SCH (07:51)
[2020-04-23 07:55] VITALS: TEMP 98.2; O2SAT 94
[2020-04-23] MEDS ORDERED: FINASTERIDE 5 MG TAB PO SCH (09:00)
[2020-04-23] MEDS ORDERED: LOSARTAN POTASSIUM 25 MG TAB PO SCH (09:00)
[2020-04-23] MEDS ORDERED: METOPROLOL SUCC 50MG EXT REL TAB PO SCH (09:00)
[2020-04-23 09:11] LABS: BUN Creatinine Ratio 14.8 (10-20); Calcium 8.4 mg/dl (8.5-10.1); Creatinine Clr Calc Pharmacy 53.2 ml/min; Est GFR (Non-African American) 70.8; Potassium 3.6 mmol/L (3.5-5.1)
--- NOTE | 2020-04-23 09:33 | Urology Progress Note ---
Date of Service April 23, 2020 Assessment & Plan (1) BPH w urinary obs/LUTS: 79 yo M POD#1 s/p TURP with Dr. Paris. - Doing well, progressing as expected - Afebrile, lab work reviewed and creatinine within normal limits, CBC pending - Schmidt catheter intact, patent, draining clear pink to light dominguez red, translucent, no clots with CBI on slow. Clamped @0900. Will reassess later this AM. - No issues with pain - Tolerating diet - Encourage OOB ambulation, incentive spirometer - Maintain Schmidt 7-10 days upon discharge - Will discharge with course of PO antibiotics - Okay to resume Aspirin and Brilinta 1 day after discharge if urine is clear to pink per Dr. Paris - Anticipate discharge later today if he continues to progress as expected - Expected clinical course reviewed, all questions answered - Will arrange appropriate outpatient follow-up with our service Pt reassessed @1100 - Schmidt intact, patent, and draining light pink urine with CBI clamped. Pt feels ready for discharge, will place orders. Admission and Anticipated Discharge Date Admission Date: April 22, 2020 Subjective 79 yo M POD#1 s/p TURP with Dr. Paris. Pt seen and examined at bedside this AM. He is awake, alert, and sitting up in bed. No issues overnight. Offers no complaints at present. No abdominal, flank or suprapubic pain. He utilized PO Percocet @0220 due to generalized discomfort in bed per his report. Tolerating Schmidt catheter with minimal bother. Notes some urge to urinate. No dysuria. Schmidt catheter intact, patent, and draining light pink to light dominguez red urine, translucent and no clots with CBI on slow. Clamped @0900. Tolerating diet, no nausea or vomiting. +Flatus. No fever or chills. Chart review: Afebrile Creatinine 1.00 CBC pending at time of visit On IV Ancef No additional concerns today. Review of Systems Constitutional: as per Subjective / HPI Gastrointestinal: as per Subjective / HPI Genitourinary: + as per Subjective / HPI Physical Exam Constitutional: well developed and well nourished; no acute distress and not ill appearing Respiratory: normal respiratory effort and able to speak in complete sentences; no respiratory distress and no labored breathing Cardiovascular: Extremities: no calf tenderness and no pedal edema SCDS in place Gastrointestinal (Abdomen): Inspection/Auscultation: abdomen normal to inspection; abdomen not distended Percussion/Palpation: abdomen soft; abdomen nontender and no guarding Musculoskeletal: Head/Neck/Chest: normocephalic and head atraumatic Extremities: extremities normal to inspection Skin: no rashes, warm and dry Neurologic: moves all extremities and awake Psychiatric: A+Ox3, euthymic affect Genitourinary: Schmidt catheter intact, patent, draining clear pink to light dominguez red, translucent, no clots with CBI on slow. Clamped @0900. Results & Data ([facility]) Vital Signs (Past 12 Hours) Vital Signs Temp Pulse Pulse Resp BP Pulse Ox 04/23/20 07:55 36.8 C 76 16 161/78 H 94 04/23/20 03:42 36.6 C 73 18 162/76 H 96 04/23/20 00:14 73 04/22/20 23:00 36.9 C 72 20 146/88 H 96 PG Care Time/CCT Total # of Minutes Spent Total Time Spent with Patient: Total time spent is greater than 50% in coordination of care (as documented) at patient's floor/unit and/or counseling patient: Coding Level of Care Code 81794 Subseq Hosp Care Lvl 2 Diagnoses BPH w urinary obs/LUTS N40.1; N13.8
[2020-04-23 09:55] LABS: Hemoglobin 12.2 g/dL (14.0-18.0); Mean Corpuscular Hemoglobin 29.1 pg (25-34); Mean Corpuscular Volume 88.3 fL (80-100); RDW Standard Deviation 55.6 fL (36.4-46.3); Red Blood Count 4.19 M/uL (4.7-6.1); White Blood Count 11.21 K/uL (4.8-10.8)
[2020-04-23 09:56] LABS: Basophils # (auto) 0.05 K/uL (0-0.2); Basophils % (auto) 0.4 %; Echinocytes 1+; Eosinophils # (auto) 0.37 K/uL (0-0.5); Eosinophils % (auto) 3.3 %; Immature Granulocytes # (auto) 0.01 K/uL (0.00-0.02); Immature Granulocytes % (auto) 0.1 %; Lymphocytes % (auto) 23.2 %; Monocytes # (auto) 0.73 K/uL (0.11-0.59); Monocytes % (auto) 6.5 %; Neutrophils # (auto) 7.45 K/uL (1.4-6.5); Neutrophils % (auto) 66.5 %
[2020-04-23 11:35] VITALS: BP 155/77
[2020-04-23 12:11] VITALS: PULSE 65
--- NOTE | 2020-04-23 12:16 | Hospitalist Consultation ---
Date of Consultation April 23, 2020 Assessment & Plan (1) BPH NOS w ur obs/LUTS: Status post TUR procedure April 22 by urology. Schmidt catheter is in place. Hematuria noted. Aspirin and Brilinta are currently on hold Present on Admission?: Yes (2) Hypertension: Currently stable. Treated with losartan and metoprolol Present on Admission?: Yes (3) Lymphoma: History of non-Hodgkin's lymphoma. No current therapy (4) Chronic ITP (idiopathic thrombocytopenia): Platelet count 81,000 on April 22. Will follow. Present on Admission?: Yes History of Present Illness Reason for Consultation: Medical management Attending Physician: Dagoberto Paris, II, DO History of Present Illness 79-year-old male with a history of benign prostatic hypertrophy and obstruction who underwent TUR procedure April 22 by urology. Schmidt catheter is in place with hematuria noted. Brilinta is on hold. Aspirin is also on hold. He continues with a atorvastatin and metoprolol blood pressure is controlled with losartan and metoprolol. He has known ITP and platelet count 81,000 yesterday, April 22 Allergies Allergy/AdvReac Type Severity Reaction Status Date / Time ciprofloxacin Allergy Severe MUSCLE Verified 04/22/20 11:56 PROBLEMS--split tendons sulfamethoxazole Allergy Severe HIVES, Verified 04/22/20 11:56 INTERFERES WITH IMMUNE SYSTEM trimethoprim Allergy Severe HIVES, Verified 04/22/20 11:56 INTERFERES WITH IMMUNE SYSTEM morphine Allergy Intermediate HALLUCINATI Verified 04/22/20 11:56 ONS Home Medications Medication Instructions Recorded Confirmed Type acetaminophen [Tylenol Extra 1,000 mg PO Q6H PRN 02/23/19 04/22/20 History Strength] aspirin [Ecotrin Low Strength] 81 mg PO QAM #0 tab 02/25/19 04/22/20 Rx metoprolol succinate 50 mg 50 mg PO QAM 04/09/19 04/22/20 History tablet,extended release 24 hr losartan 25 mg PO QAM 11/07/19 04/22/20 History finasteride 5 mg tablet 5 mg PO DAILY #90 tab 12/12/19 04/22/20 Rx tamsulosin 0.4 mg capsule 0.4 mg PO QPM #90 cap 12/12/19 04/22/20 Rx nitroglycerin 0.4 mg sublingual 0.4 mg SUBLINGUAL UD PRN #30 tab 01/01/20 04/22/20 Rx tablet atorvastatin 80 mg tablet 80 mg PO HS #90 tab 02/09/20 04/22/20 Rx Brilinta 90 mg PO BID 04/02/20 04/22/20 History Brilinta 60 mg PO BID 04/22/20 04/22/20 History cephalexin 500 mg PO BID 7 Days #14 cap 04/23/20 Rx docusate sodium [Colace] 100 mg PO BID #60 cap 04/23/20 Rx oxycodone-acetaminophen [Percocet] 1 tab PO TID PRN #7 tab 04/23/20 Rx Patient History Medical History BPH (benign prostatic hyperplasia) CAD (coronary artery disease) S/P TONIA x 5. Presented with NSTEMI 02/23/19 and had single TONIA to Cx. Returned with chest pain 02/27 and found to have thrombosed stent, required additional PCI x 4. Chronic ITP (idiopathic thrombocytopenia) IVIG TREATMENTS IN PAST Coronary stent thrombosis Single stent placed 02/23/19. Four more stents placed 02/27, and thrombus found. Likely 2/2 Diverticulitis of colon with perforation Found incidentally 08/2019 when pt had pre-op CT scan prior to splenectomy. Micro-perforation with free air in abdomen. Admitted to [facility] for eval, felt non-surgical. Returned to ED a few days after discharge with BRBPR, surgical intervention considered, but pt ultimately transferred to [facility] and had abdominal drainage catheter placed (abscess?) History of kidney stones Hypertension Left pontine stroke 05/22/19. Per neurology consult, treatment of ITP with IVIG likely contributed. Very mild deficits at the time, now fully recovered. Lymphoma Dx 2017, low grade Non-hodgkins, asymptomatic. Mitral regurgitation Non-ST elevation (NSTEMI) myocardial infarction 02/2019--had cardiac cath with 5 stents placed--follows with Dr. Sorenson Rheumatoid arthritis Surgical History History of appendectomy History of cardiac cath 02/27/2019 @ [facility] [address] 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 Hines @ [facility] Family History Father Cancer Other Hypertension Kidney disease No family history of adverse response to anesthesia Social History Smoking Status: Never smoker Tobacco Type: Cigarettes Second Hand Exposure: No; Hx Alcohol Use: Yes Alcohol type: hard liquor Hx Substance Use: No Preferred Language: Chinese Communication Ability: Effective Visual Impairment: No Limitations Pca Required: No Beliefs That Will Affect Care: None marital status: Current Living Situation: Spouse Current Living Situation Comment: Sary Feels Safe at Home: Yes Assistive Devices: Glasses Review of Systems Review of Systems: Constitutional-no fever or chills ENT-no blurred vision, no double vision, no epistaxis, no sore throat Respiratory-no cough, no wheezing, no shortness of breath Cardiac-no palpitations, no chest pain, no syncope GI-no nausea, vomiting, diarrhea, melena, hematochezia - urinary retention Musculoskeletal-no joint pain, no muscle tenderness Skin-no bruising, no rashes, no pruritus Neuro-no isolated weakness, no paresthesia, no weakness Psych-no depression, no anxiety Physical Exam Physical Exam: General-alert and oriented x3, no fevers, no chills HEENT-head atraumatic and normocephalic, TMs intact bilaterally, pupils equal and reactive to light, extraocular muscles intact Neck-no lymphadenopathy or thyromegaly, trachea midline Chest-clear to auscultation percussion. No rales wheezing or rhonchi Cardiac-regular rate and rhythm, normal S1 and S2, no murmurs Abdomen-normal bowel sounds, nontender, no hepatosplenomegaly Extremities-no cyanosis, clubbing, or edema Neuro-cranial nerves II through XII intact, motor and sensory function within normal limits, strength symmetrical 5/5, no focal deficits Psych-normal affect, normal mood Results & Data Results & Data ([facility]) Vital Signs (Past 12 Hours) Vital Signs Temp Pulse Pulse Pulse Pulse Resp BP 04/23/20 12:09 36.8 C 70 75 65 20 155/77 H 04/23/20 11:34 36.8 C 75 20 155/77 H 04/23/20 07:55 36.8 C 76 16 04/23/20 06:20 69 04/23/20 03:42 36.6 C 73 18 04/23/20 00:14 73 BP Pulse Ox 04/23/20 12:09 161/78 H 94 04/23/20 11:34 94 04/23/20 07:55 161/78 H 94 04/23/20 06:20 04/23/20 03:42 162/76 H 96 04/23/20 00:14 Laboratory Results 04/23/20 08:14 04/23/20 08:14 PG Care Time/CCT Total # of Minutes Spent Total Time Spent with Patient: Total time spent is greater than 50% in coordination of care (as documented) at patient's floor/unit and/or counseling patient: Coding Level of Care Code 18250 Inpt Consult Level 4 Diagnoses BPH NOS w ur obs/LUTS N40.1 Hypertension I10 Lymphoma C85.90 Chronic ITP (idiopathic thrombocytopenia) D69.3
--- NOTE | 2020-04-23 13:02 | Discharge Summary ---
Date of Service April 23, 2020 Admission HPI Per Admitting Provider Patient admitted for TURP secondary to BPH with obstruction and prostatitis. Admission Exam Per Admitting Provider See H&P Principal Diagnosis BPH with obstruction, prostatitis Discharge Exam General: Alert in no acute distress. HEENT: Normocephalic Atraumatic. Inspection normal. Psychologic: Normal affect. Skin: [place] and Dry. No rashes or visible lesions. Abdomen: Soft Non-distended. No rebound or guarding. Constitutional well developed and well nourished; no acute distress and not ill appearing Respiratory normal respiratory effort and able to speak in complete sentences; no respiratory distress and no labored breathing Cardiovascular Extremities: no calf tenderness and no pedal edema Gastrointestinal (Abdomen) Inspection/Auscultation: abdomen normal to inspection; abdomen not distended Percussion/Palpation: abdomen soft; abdomen nontender and no guarding Musculoskeletal Head/Neck/Chest: normocephalic and head atraumatic Extremities: extremities normal to inspection Skin no rashes, warm and dry Neurologic moves all extremities and awake Psychiatric A+Ox3, euthymic affect Genitourinary Schmidt catheter intact, patent and draining clear pink urine, no clots with CBI clamped Discharge Data Allergies Allergy/AdvReac Type Severity Reaction Status Date / Time ciprofloxacin Allergy Severe MUSCLE Verified 04/22/20 11:56 PROBLEMS--split tendons sulfamethoxazole Allergy Severe HIVES, Verified 04/22/20 11:56 INTERFERES WITH IMMUNE SYSTEM trimethoprim Allergy Severe HIVES, Verified 04/22/20 11:56 INTERFERES WITH IMMUNE SYSTEM morphine Allergy Intermediate HALLUCINATI Verified 04/22/20 11:56 ONS Consultations 04/22/20 12:44 Consult Hospitalist Routine Procedures Performed Operation Date: 04/22/20 13:05 Actual Procedures p Transurethral Resection Prostate(Not Applicable) - Dagoberto Paris, DO Hospital Course (1) BPH w urinary obs/LUTS: 79 yo M POD#1 s/p TURP with Dr. Paris. - Doing well, progressing as expected - Afebrile, lab work reviewed and creatinine within normal limits, CBC pending - Schmidt catheter intact, patent, draining clear pink to light dominguez red, translucent, no clots with CBI on slow. Clamped @0900. Will reassess later this AM. - No issues with pain - Tolerating diet - Encourage OOB ambulation, incentive spirometer - Maintain Schmidt 7-10 days upon discharge - Will discharge with course of PO antibiotics - Okay to resume Aspirin and Brilinta 1 day after discharge if urine is clear to pink per Dr. Paris - Anticipate discharge later today if he continues to progress as expected - Expected clinical course reviewed, all questions answered - Will arrange appropriate outpatient follow-up with our service Pt reassessed @1100 - Schmidt intact, patent, and draining light pink urine with CBI clamped. Pt feels ready for discharge, will place orders. Total Time Total Time Spent Total Time Spent (In Minutes): 10 minutes Total Time Includes: Examination of the Patient, Discharge Planning, Medication Reconciliation and Communication With Other Providers Discharge Plan Discharge Items Patient Disposition: Home - Self-Care Reason For Visit: Prostatitis Discharge Diagnosis: Prostatitis, BPH Activity: Per Instructions section Lifting: No more than 25 pounds Bathing Comment: Okay to shower in 1 day, no tub bath or soaking until follow-up Sexual Activity: Wait until after follow-up appointment Exercise/Sports: Wait until after follow-up appointment Driving/Machine Use: Do not drive while taking prescription pain medication Non-emergency contact: Urologist Call non-emergency contact if: you have any medication questions, your pain is not controlled, your pain is worsening, your pain is unusual for you, you have a fever and your temperature is above 101 Follow-up/Referrals: Vani Mauro [Primary Care Provider] - 05/03/20 12:50 pm Diet: Regular Addtl Attending Provider Instructions: Please take all medications as prescribed and keep all follow-ups as scheduled. Please call our office at [phone] with any questions, concerns or need to reschedule appointments for any reason. We are happy to assist you. Resume your aspirin and Brilinta 1 day after discharge if urine is clear to pink, call office if urine is bright red. Complete antibiotic course as directed. Tips for your recovery at home: Dont be alarmed by brownish or reddish blood or clots in your urine. This is a result of the procedure. This may occur off and on for weeks to months after the procedure but should continue to improve. Drink plenty of fluids during the day (enough to keep your urine very light colored). This will help keep a healthy flow of urine. Do not lift >25 lbs until your followup Avoid constipation. Please use a stool softener (Colace) for the first two weeks after your procedure Be sure to finish the antibiotics as prescribed. If you go home with a catheter, please wash tubing where it enters your body twice daily with mild soap (Dove or Dial). Once your catheter is removed, expect some blood in your urine and some burning when you urinate. You should have an appointment to have this removed, if you do not please call our office to arrange. Pending Studies at Discharge: Yes Stand-Alone Forms: [email or web address], Smoking Cessation Medications and DC Order Prescriptions: New oxycodone-acetaminophen [Percocet] 5-325 mg tablet 1 tab PO TID PRN (Reason: pain) Qty: 7 RF: 0 docusate sodium [Colace] 100 mg capsule 100 mg PO BID Qty: 60 RF: 0 cephalexin 500 mg capsule 500 mg PO BID 7 Days Qty: 14 RF: 0 Continued tamsulosin [Flomax] 0.4 mg capsule 0.4 mg PO QPM Qty: 90 RF: 1 finasteride 5 mg tablet 5 mg PO DAILY Qty: 90 RF: 1 nitroglycerin [Nitrostat] 0.4 mg tablet, sublingual 0.4 mg sublingual UD PRN (Reason: chest pain) Qty: 30 RF: 0 metoprolol succinate 50 mg tablet extended release 24 hr 50 mg PO QAM RF: 0 atorvastatin 80 mg tablet 80 mg PO HS Qty: 90 RF: 3 acetaminophen [Tylenol Extra Strength] 500 mg Tablet 1,000 mg PO Q6H PRN (Reason: Pain) RF: 0 aspirin [Ecotrin Low Strength] 81 mg Tablet,Delayed Release (Dr/Ec) 81 mg PO QAM Qty: 0 RF: 0 losartan 25 mg tablet 25 mg PO QAM RF: 0 Brilinta 90 mg Tablet 90 mg PO BID RF: 0 Brilinta 60 mg tablet 60 mg PO BID RF: 0 Discharge Orders: Discharge Order (Routine); Ordered 04/23/20 Ordered By: Anais Loza Admission Data Admit Date/Time: 04/22/20 12:44 Attending Provider: Dagoberto Paris Admit Provider: Dagoberto Paris Primary Care Provider: Vani Mauro Other Providers: Mirza Stacy ; Ana Nickerson ; Coy Bella ; Watson Arnold ; Silva Andrews ; Bart Ramey ; Gaston Hall ; Felipe Arriaga ; Pilar Bush ; Angela Jacob ; Oxana Steinberg ; Rene Sellers ; Mary Alice Cardenas ; Christina Bartholomew ; Bernabe Garcia ; Sudeep Diaz ; Enid Campuzano ; Simon Jerez ; Sebastien Irwin ; Juliet Elizabeth ; Morgan Sharp ; Coy Miller ; Nik Fritz ; Michaelle Jerry ; Blayne Castillo ; Miguel Batista Other Interventions: Discharge Summary Assessment (RN) Last Done: 04/23/20 12:09 Coding Level of Care Code D/C Day Management <30 mins Diagnoses BPH w urinary obs/LUTS N40.1; N13.8
== END 2020-04-23 13:13 | disposition home or self-care (01) ==
LOC: 2W 11:26 → ASU 11:26 → 2W 22:30
DX: Z96.643 Presence of artificial hip joint, bilateral; N41.9 Inflammatory disease of prostate, unspecified; Z86.73 Personal history of transient ischemic attack (TIA), and cerebral infarction without residual deficits; Z88.8 Allergy status to other drugs, medicaments and biological substances; N40.1 Benign prostatic hyperplasia with lower urinary tract symptoms; Z88.1 Allergy status to other antibiotic agents; Z88.2 Allergy status to sulfonamides; D69.3 Immune thrombocytopenic purpura; K21.9 Gastro-esophageal reflux disease without esophagitis; I25.2 Old myocardial infarction; N13.8 Other obstructive and reflux uropathy; I34.0 Nonrheumatic mitral (valve) insufficiency; Z79.82 Long term (current) use of aspirin; Z95.5 Presence of coronary angioplasty implant and graft; I10 Essential (primary) hypertension; Z79.899 Other long term (current) drug therapy; M06.9 Rheumatoid arthritis, unspecified; Z88.5 Allergy status to narcotic agent

== ENCOUNTER 2023-01-20 11:15 | Inpatient (IN) ==
[2023-01-20] MEDS ORDERED: cefTRIAXone SODIUM 2,000 MG/50 ML BAG IV STA (11:49)
--- NOTE | 2023-01-20 11:54 | Emergency Department Note ---
History of Present Illness General Chief complaint: Infection Stated complaint: STENT REMOVED DR RAMIREZ, CHILLS, SHAKING, INFE? Time Seen by Provider: 01/20/23 11:35 Source: patient, family (Son who is at the bedside), RN notes reviewed and old records reviewed (Urology office note from 01-19-2023. Patient seen for stent removal) Mode of arrival: ambulatory Limitations: no limitations History of Present Illness This patient is a 82-year-old male who has history of kidney stones among other medical problems, comes in after having shakes and shivers. He had recent bout of kidney stones and a stent placed it was removed in the office yesterday he felt fine yesterday around 9 or 930 he started feeling cold and got very shaky he has been shaky since then he had no measurable fever. He says he feels fine otherwise has no pain specifically no flank or abdominal pain. No dysuria hematuria he had normal bowel movements without diarrhea or blood. No chest pain shortness breath or cough or any respiratory symptoms. No fall or trauma. No rash. He does have a history of ITP but says his platelets checked yesterday were 240 . he has a history of non-Hodgkin's lymphoma that is in remission .he has had a splenectomy related to that in the past. He has history of coronary artery disease as well. He drinks alcohol occasionally but not heavily Home Medications Medication Instructions Recorded Confirmed Type acetaminophen 500 mg tablet 1,000 mg PO Q6H PRN Pain 02/23/19 01/20/23 History (Tylenol Extra Strength) aspirin 81 mg tablet,delayed 81 mg PO QAM #0 tabs 02/25/19 01/20/23 Rx release (Ecotrin Low Strength) metoprolol succinate 50 mg 50 mg PO QAM 04/09/19 01/20/23 History tablet,extended release 24 hr nitroglycerin 0.4 mg sublingual 0.4 mg sublingual UD PRN chest 01/01/20 01/20/23 Rx tablet (Nitrostat) pain #30 tabs atorvastatin 80 mg tablet 80 mg PO HS #90 tabs 04/03/22 01/20/23 Rx ticagrelor 60 mg tablet (Brilinta) 60 mg PO BID #180 tabs 08/22/22 01/20/23 Rx amlodipine 5 mg tablet 5 mg PO HS 01/04/23 01/20/23 History losartan 100 mg tablet 100 mg PO QAM 01/04/23 01/20/23 History oxycodone-acetaminophen 7.5 mg-325 1 tab PO Q8H PRN pain #7 tabs 01/08/23 Rx mg tablet (Percocet) tamsulosin 0.4 mg capsule 0.4 mg PO HS #30 caps 01/08/23 01/20/23 Rx Allergies Allergy/AdvReac Type Severity Reaction Status Date / Time ciprofloxacin Allergy Unknown "Muscle Verified 01/08/23 08:28 problems, split tendons" sulfamethoxazole Allergy Unknown Hives, Verified 01/08/23 08:28 "interferes with immune system" trimethoprim Allergy Unknown Hives, Verified 01/08/23 08:28 "interferes with immune system" morphine AdvReac Unknown Hallucinati Verified 01/08/23 08:28 ons oxycodone AdvReac Unknown Nausea Verified 01/08/23 08:28 Past Med/Surg History Medical History Chronic anemia Dilated aortic root Echo 10/2022: Mild aortic root dilatation (4.3 cm). Mildly dilated ascending aorta (4.2 cm) Anemia History of kidney stones Diverticulitis of colon with perforation 2019, found incidentally on preop CTS prior to splenectomy. Micro-perforation with free air in abdomen. Admitted to hospital for evaluation. [place] non- surgical. Returned to ED a few days after discharge with BRBPR, surgical intervention considered, but pt ultimately transferred to [facility] and had abdominal drainage catheter placed. No recent issues. Left pontine stroke 2019. Per neurology consult, treatment of ITP with IVIG likely contributed. No residual deficits. Coronary stent thrombosis Presented with NSTEMI 02/23/19 and had single TONIA to Cx. Returned with chest pain 02/28/12 and found to have thrombosed stent, required additional PCI x 4. CAD (coronary artery disease) S/P TONIA x 5. Presented with NSTEMI 02/23/19 and had single TONIA to Cx. Returned with chest pain 02/28/12 and found to have thrombosed stent, required additional PCI x 4. [place] [facility] [place]. Chronic ITP (idiopathic thrombocytopenia) Controlled, hx IVIG treatments in the past Mitral regurgitation Non-ST elevation (NSTEMI) myocardial infarction 02/2019 > stents x5 total Rheumatoid arthritis "Hx between ages 14-20 years old.. 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, [facility] History of cardiac cath 02/2019 > stents x5 total History of total hip arthroplasty R/L History of cystoscopy + stone extraction History of lithotripsy History of colonoscopy History of appendectomy History of tooth extraction History of tonsillectomy Family History Father Cancer Other Hypertension Kidney disease No family history of adverse response to anesthesia Social History Smoking Status: Never smoker Tobacco Type: Cigarettes Second Hand Exposure: No; Do You Dip or Chew Tobacco: No; Hx Alcohol Use: Yes Alcohol type: wine and hard liquor Hx Substance Use: No Preferred Language: Malay Communication Ability: Effective Visual Impairment: No Limitations Painter Mirror Required: No Beliefs That Will Affect Care: None marital status: Current Living Situation: Alone Current Living Situation Comment: [place] Other Information That Helps Us Care for You: No Feels Safe at Home: Yes Safety Concerns: Feels Safe At This Time Assistive Devices: Glasses and Hearing Aid - Bilateral Review of Systems A total of 10 systems reviewed and were otherwise negative Physical Exam Vital Signs Vital Signs - 24 hr 01/20/23 11:16 01/20/23 12:09 01/20/23 12:25 Temperature 36.7 C Temperature Source Temporal Artery Scan Pulse Rate 103 H 90 Pulse Rate [Apical] 89 Respiratory Rate 20 20 20 Respiratory Effort / Characteristics Non-Labored Spontaneous Non-Labored Spontaneous Respiratory Depth Normal Normal Respiratory Pattern Regular Blood Pressure 205/87 H Blood Pressure [Right Arm] 150/79 H Blood Pressure Mean 126 Blood Pressure Mean [Right Arm] 102 Pulse Oximetry 96 98 99 Oxygen Delivery Method Room Air Room Air Room Air Sepsis Recent Fever Within 48 Hours No Sepsis New/Unexplained Change in Mental Status N/A Sepsis Action Taken by Nursing No Action Required 01/20/23 12:30 Temperature Temperature Source Pulse Rate 87 Pulse Rate [Apical] Respiratory Rate Respiratory Effort / Characteristics Respiratory Depth Respiratory Pattern Blood Pressure Blood Pressure [Right Arm] Blood Pressure Mean Blood Pressure Mean [Right Arm] Pulse Oximetry Oxygen Delivery Method Sepsis Recent Fever Within 48 Hours Sepsis New/Unexplained Change in Mental Status Sepsis Action Taken by Nursing General: Well developed well nourished older male who appears shaky and rigors but otherwise in no acute distress, breathing comfortably on room air. Normal speech, alert and orient x3 answer all questions appropriately with normal speech HEENT: Normal cephalic atraumatic. Pupils are equal round and reactive to light. Extraocular movements are intact. Oropharynx is pink with moist mucous membranes. No swelling of the mouth lips or tongue. Neck: Supple with a midline trachea. No meningeal signs or stiffness, no JVD or bruits. No Stridor. Chest: Clear to auscultation bilaterally. No wheezes or rhonchi. No increased work of breathing. Heart: Regular rate and rhythm without murmurs or gallops. Abdomen: Soft nontender, nondistended without rebound guarding or rigidity. Extremities: No cyanosis clubbing or edema. No calf tenderness or assymetry Spine/Back. Non tender to palpation. No CVA tenderness Skin: Good turgor without rashes. Neurologic exam: Cranial nerves two through 12 are intact. Motor and sensation are intact and symmetrical throughout. Course Administered Medications Vancomycin HCl 1,500 mg/ (Sodium Chloride) 530 mls @ 200 mls/hr IV NOW ONE Stop: 01/20/23 14:35 Last Admin: 01/20/23 12:17 Dose: 200 mls/hr Documented By: BRANDO Discontinued Medications Sodium Chloride (Nss) 1,000 mls @ 999 mls/hr IV .Q1H1M [facility] Stop: 01/20/23 13:00 Last Admin: 01/20/23 12:09 Dose: 999 mls/hr Documented By: MADI Ceftriaxone Sodium (Rocephin) 2,000 mg in 50 mls @ 100 mls/hr IV NOW STA Stop: 01/20/23 12:18 Last Infusion: 01/20/23 12:48 Dose: Infused Documented By: Admin: 01/20/23 12:09 Dose: 100 mls/hr Documented By: MADI Sodium Chloride (Nss) 1,000 mls @ 999 mls/hr IV .Q1H1M ONE Stop: 01/20/23 13:55 Last Admin: 01/20/23 13:48 Dose: 999 mls/hr Documented By: BRANDO Critical Care Time Critical Care Time: Yes Total Critical Care Time: 40 Due to the concern for sepsis in a patient who is asplenic, need for frequent reassessment, 2 different IV antibiotics and IV fluid boluses as well as consultation with our pharmacist, urology and the hospitalist, I have personally spent greater than 40 minutes of critical care time in the direct management of this patient. This includes bedside care, interpretation of diagnostic studies, and testing, discussion with consultants, patient, and family members, and other required patient management activities. This 40 minutes is in excess of all separately billable procedures. Medical Decision Making Differential Diagnosis Sepsis, electrolyte or metabolic abnormality, cardiac disease, urologic process or infection, hematologic process Medical Records Attestation: I reviewed the patient's medical records. Home Medications Current Medication List: was personally reviewed by me Laboratory Data Attestation: I reviewed the patient's lab results. 01/20/23 11:16 01/20/23 11:16 Lab Results 01/20/23 01/20/23 01/20/23 Range/Units 11:16 11:56 12:09 WBC 25.49 H D (4.8-10.8) K/ul RBC 3.93 L (4.70-6.10) M/uL Hgb 11.8 L (14.0-18.0) g/dl Hct 35.9 L (42.0-52.0) % MCV 91.3 (80.0-100.0) fL MCH 30.0 (25.0-34.0) pg MCHC 32.9 (32.0-36.0) g/dL RDW Std Deviation 59.8 H (36.4-46.3) fL RDW Coeff of Katarina 17.9 H (11.5-14.5) % Plt Count (130-400) K/uL MPV (9.4-12.4) fL Immature Gran % (Auto) 0.4 % Neut % (Auto) 83.5 % Lymph % (Auto) 3.1 % [place] % (Auto) 11.9 % Eos % (Auto) 0.4 % Baso % (Auto) 0.7 % Neut # (Auto) 21.28 H (1.40-6.50) K/uL Lymph # (Auto) 0.78 L (1.20-3.40) K/uL [place] # (Auto) 3.04 H (0.11-0.59) K/uL Eos # (Auto) 0.11 (0.00-0.50) K/uL Baso # (Auto) 0.18 (0.00-0.20) K/uL Immature Gran # (Auto) 0.10 (0.01-0.20) K/uL Plt Count ,Citrate 299 (130-400) K/uL Polychromasia 1+ Target Cells 1+ [place] Bodies 1+ Acanthocytes (Spur) 1+ Sodium 138 (136-145) mmol/L Potassium 4.7 (3.5-5.1) mmol/L Chloride 107 (98-107) mmol/L Carbon Dioxide 23 (21-32) mmol/L Anion Gap 8 (3-11) BUN 17 (6-23) mg/dl Creatinine 1.14 (0.6-1.4) mg/dl Est Cr Clr Drug Dosing 47.9 ml/min Est GFR ( Amer) 68.5 ml/min Est GFR (Non-Af Amer) 59.1 ml/min BUN/Creatinine Ratio 14.9 (10-20) Glucose 106 H (70-99(Fasting)) mg/dl Lactate 2.7 H* (0.4-2.0) mmol/L Calcium 9.8 (8.6-10.3) mg/dl Magnesium 1.7 (1.7-2.4) mg/dl Total Bilirubin 0.7 (0.2-1.0) mg/dl Direct Bilirubin 0.1 (0-0.2) mg/dl AST 29 (13-39) U/L ALT 31 (7-52) U/L Alkaline Phosphatase 87 (34-104) U/L Total Protein 6.9 (6.0-8.3) gm/dl Albumin 4.0 (3.4-5.0) gm/dl Procalcitonin Cancelled Urine Color Yellow Urine Appearance Clear (Clear) Urine pH 5.5 (4.5-7.5) Ur Specific [place] 1.012 (1.000-1.030) Urine Protein Trace H (Negative) Urine Glucose (UA) Negative (Negative) Urine Ketones Negative (Negative) Urine Blood 1+ H (Negative) Urine Nitrite Negative (Negative) Urine Bilirubin Negative (Negative) Urine Urobilinogen Negative (Negative) Ur Leukocyte Esterase 1+ H (Negative) Urine WBC (Auto) 10-30 H (0-5) /hpf Urine RBC (Auto) 0-4 (0-4) /hpf U Hyaline Cast (Auto) 1-5 (0-5) /lpf U Epithel Cells (Auto) 0-5 (0-5) /lpf Urine Bacteria (Auto) 3+ H (Negative) Adenovirus (PCR) (NotDetected) B. pertussis DNA (PCR) (NotDetected) B.parapertussis DNA PCR (NotDetected) C. pneumoniae DNA (PCR) (NotDetected) Coronavirus OC43 (PCR) (NotDetected) Coronavirus HKU1 (PCR) (NotDetected) Coronavirus 229E (PCR) (NotDetected) SARS-CoV-2 (PCR) (NotDetected) Coronavirus NL63 (PCR) (NotDetected) Human Metapneumovir PCR (NotDetected) Influenza Type A (PCR) (NotDetected) Influenza Type B (PCR) (NotDetected) M. pneumoniae (PCR) (NotDetected) Parainfluenza 1 (PCR) (NotDetected) Parainfluenza 2 (PCR) (NotDetected) Parainfluenza 3 (PCR) (NotDetected) Parainfluenza 4 (PCR) (NotDetected) RSV (PCR) (NotDetected) Entero/Rhino (PCR) (NotDetected) 01/20/23 01/20/23 01/20/23 Range/Units 12:26 12:34 14:07 WBC (4.8-10.8) K/ul RBC (4.70-6.10) M/uL Hgb (14.0-18.0) g/dl Hct (42.0-52.0) % MCV (80.0-100.0) fL MCH (25.0-34.0) pg MCHC (32.0-36.0) g/dL RDW Std Deviation (36.4-46.3) fL RDW Coeff of Katarina (11.5-14.5) % Plt Count (130-400) K/uL MPV (9.4-12.4) fL Immature Gran % (Auto) % Neut % (Auto) % Lymph % (Auto) % [place] % (Auto) % Eos % (Auto) % Baso % (Auto) % Neut # (Auto) (1.40-6.50) K/uL Lymph # (Auto) (1.20-3.40) K/uL [place] # (Auto) (0.11-0.59) K/uL Eos # (Auto) (0.00-0.50) K/uL Baso # (Auto) (0.00-0.20) K/uL Immature Gran # (Auto) (0.01-0.20) K/uL Plt Count ,Citrate (130-400) K/uL Polychromasia Target Cells [place] Bodies Acanthocytes (Spur) Sodium (136-145) mmol/L Potassium (3.5-5.1) mmol/L Chloride (98-107) mmol/L Carbon Dioxide (21-32) mmol/L Anion Gap (3-11) BUN (6-23) mg/dl Creatinine (0.6-1.4) mg/dl Est Cr Clr Drug Dosing ml/min Est GFR ( Amer) ml/min Est GFR (Non-Af Amer) ml/min BUN/Creatinine Ratio (10-20) Glucose (70-99(Fasting)) mg/dl Lactate 1.7 (0.4-2.0) mmol/L Calcium (8.6-10.3) mg/dl Magnesium (1.7-2.4) mg/dl Total Bilirubin (0.2-1.0) mg/dl Direct Bilirubin (0-0.2) mg/dl AST (13-39) U/L ALT (7-52) U/L Alkaline Phosphatase (34-104) U/L Total Protein (6.0-8.3) gm/dl Albumin (3.4-5.0) gm/dl Procalcitonin < 0.05 Urine Color Urine Appearance (Clear) Urine pH (4.5-7.5) Ur Specific [place] (1.000-1.030) Urine Protein (Negative) Urine Glucose (UA) (Negative) Urine Ketones (Negative) Urine Blood (Negative) Urine Nitrite (Negative) Urine Bilirubin (Negative) Urine Urobilinogen (Negative) Ur Leukocyte Esterase (Negative) Urine WBC (Auto) (0-5) /hpf Urine RBC (Auto) (0-4) /hpf U Hyaline Cast (Auto) (0-5) /lpf U Epithel Cells (Auto) (0-5) /lpf Urine Bacteria (Auto) (Negative) Adenovirus (PCR) Not Detected (NotDetected) B. pertussis DNA (PCR) Not Detected (NotDetected) B.parapertussis DNA PCR Not Detected (NotDetected) C. pneumoniae DNA (PCR) Not Detected (NotDetected) Coronavirus OC43 (PCR) Not Detected (NotDetected) Coronavirus HKU1 (PCR) Not Detected (NotDetected) Coronavirus 229E (PCR) Not Detected (NotDetected) SARS-CoV-2 (PCR) Not Detected (NotDetected) Coronavirus NL63 (PCR) Not Detected (NotDetected) Human Metapneumovir PCR Not Detected (NotDetected) Influenza Type A (PCR) Not Detected (NotDetected) Influenza Type B (PCR) Not Detected (NotDetected) M. pneumoniae (PCR) Not Detected (NotDetected) Parainfluenza 1 (PCR) Not Detected (NotDetected) Parainfluenza 2 (PCR) Not Detected (NotDetected) Parainfluenza 3 (PCR) Not Detected (NotDetected) Parainfluenza 4 (PCR) Not Detected (NotDetected) RSV (PCR) Not Detected (NotDetected) Entero/Rhino (PCR) Not Detected (NotDetected) Imaging Data Attestation: I personally reviewed and interpreted this imaging study as follows: My Impression: Chest x-ray ECG Data Attestation: I personally reviewed and interpreted this ECG as follows: Indication: + weakness Rate (beats per minute): 87 Rhythm: + normal sinus ECG Intervals/blocks: + Normal QRS, + Normal QT and + Normal KS ECG Hunters: + Normal ECG ST segments: + Normal ST segments ECG Findings: no PACs or no PVCs Comparison ECG Date: from (01/11/2022) Change: no significant change MDM Narrative This patient comes in as described above. He was placed on a conveyor monitor in room B7. Although his initial vital signs look reassuring , I am concerned that he is rigors and had a recent stent removed as well as history of being asplenic. I am concerned that he could be bacteremic I did order a full sepsis type work-up and initially ordered Rocephin 2 g IV. He tells me he is done okay with these type of medications before but he is allergic to Cipro and Bactrim. I did order blood cultures lactic acid, he was initially given 1 L IV normal saline bolus. EKG was obtained he was placed on a conveyor monitor. He was reassessed frequently. Urinalysis was also ordered. I did discuss the case in consultation with Marni our ED pharmacist and she agrees with the Rocephin and also agrees with adding vancomycin IV which was also ordered. The patient tolerated the first liter normal normal saline bolus well I ordered a second normal saline bolus as his white count came back at 25,000. His urinalysis does suggest a possible UTI although he is asymptomatic. I did discuss case with Dr. Helm who was on for urology he did not feel the patient definitely needs to be imaged unless he was crashing or really sick. Although the patient's vital signs are stable and concerned that he is asplenic and I did order the CT. I do think he will need to be admitted and have consulted the admitting team I have checked on the patient and talk to him and his son at length multiple times. The patient says he is starting to feel better. He looks much better his blood pressure has remained stable. He is no longer rhonchorous. His lactic acid did come back elevated at 2.7 however upon reassessment after fluid resuscitation is down to 1.7 and again he clinically looks much better. I do think he needs to be admitted/observed given his baseline asplenic state as well as his sepsis. I have discussed the case in consultation with the on-call hospitalist team and they will see the patient for these measures. Continuous cardiac monitoring: Orders placed in EMR for continuous cardiac monitoring: Pulm evaluation patient noted to be in normal sinus rhythm with a rate of 100 Impression & Plan Sepsis, Chronic ITP (idiopathic thrombocytopenia), Kidney stones, calcium oxalate, Rigors, Elevated lactic acid level, Asplenia Discharge Plan Visit Data Chief Complaint: Infection Stated Complaint: STENT REMOVED DR RAMIREZ, CHILLS, SHAKING, INFE? ED Provider: Nik Peter Discharge Problem: Sepsis, Chronic ITP (idiopathic thrombocytopenia), Kidney stones, calcium oxalate, Rigors, Elevated lactic acid level, Asplenia Forms Stand Alone Forms: My [facility] [employer] Prescriptions Prescriptions: No Action nitroglycerin [Nitrostat] 0.4 mg tablet, sublingual 0.4 mg sublingual UD PRN (Reason: chest pain) Qty: 30 0RF Patient Comments: NEVER USED IT atorvastatin 80 mg tablet 80 mg PO HS Qty: 90 3RF Brilinta 60 mg tablet 60 mg PO BID Qty: 180 3RF metoprolol succinate 50 mg tablet extended release 24 hr 50 mg PO QAM acetaminophen [Tylenol Extra Strength] 500 mg Tablet 1,000 mg PO Q6H PRN (Reason: Pain) Patient Comments: pt was just discharged at 1200 after having a stent put in, has only taken what he received while admitted (02/25/19) aspirin [Ecotrin Low Strength] 81 mg Tablet,Delayed Release (Dr/Ec) 81 mg PO QAM Qty: 0 0RF Patient Comments: pt was just discharged at 1200 after having a stent put in, has only taken what he received while admitted (02/25/19) amlodipine 5 mg tablet 5 mg PO HS losartan 100 mg tablet 100 mg PO QAM tamsulosin 0.4 mg capsule 0.4 mg PO HS Qty: 30 0RF oxycodone-acetaminophen [Percocet] 7.5-325 mg tablet 1 tab PO Q8H PRN (Reason: pain) Qty: 7 0RF Referrals Referrals: Vani Mauro [Primary Care Provider] - Discharge Problem: Sepsis Qualifiers: Sepsis type: sepsis due to unspecified organism Sepsis acute organ dysfunction status: unspecified Qualified Code(s): A41.9 - Sepsis, unspecified organism
[2023-01-20] MEDS ORDERED: VANCOMYCIN HCL 1,500 MG in SODIUM CHLORIDE 0.9% 500 ML IV ONE (11:57)
[2023-01-20] MEDS ORDERED: VANCOMYCIN CONSULT ACTIVE PRN (11:57)
[2023-01-20] MEDS ORDERED: SODIUM CHLORIDE 0.9% 1,000 ML IV SCH (12:00)
[2023-01-20 12:27] LABS: Appearance Urine Clear (Clear); Bacteria Urine Automated 3+ (Negative); Bilirubin Urine Negative (Negative); Blood Urine 1+ (Negative); Color Urine Yellow; Epithelial Cell Urine Auto 0-5 /lpf (0-5); Glucose Urine UA Negative (Negative); Ketones Urine Negative (Negative); Leukocyte Esterase Urine 1+ (Negative); Nitrite Urine Negative (Negative); Protein Urine Trace (Negative); RBC Urine Automated 0-4 /hpf (0-4); Specific Gravity Urine 1.012 (1.000-1.030); Urobilinogen Urine Negative (Negative); pH Urine 5.5 (4.5-7.5)
[2023-01-20 12:45] LABS: BUN Creatinine Ratio 14.9 (10-20); Bilirubin Direct 0.1 mg/dl (0-0.2); Bilirubin,Total 0.7 mg/dl (0.2-1.0); Calcium 9.8 mg/dl (8.6-10.3); Creatinine Clr Calc Pharmacy 47.9 ml/min; Est GFR (African American) 68.5 ml/min; Est GFR (Non-African American) 59.1 ml/min; Hematocrit (blood only) 35.9 % (42.0-52.0); Hemoglobin 11.8 g/dl (14.0-18.0); Magnesium 1.7 mg/dl (1.7-2.4); Mean Corpuscular Hgb Conc 32.9 g/dL (32.0-36.0); Mean Corpuscular Volume 91.3 fL (80.0-100.0); Potassium 4.7 mmol/L (3.5-5.1); RDW Coefficient of Variation 17.9 % (11.5-14.5); RDW Standard Deviation 59.8 fL (36.4-46.3); Red Blood Count 3.93 M/uL (4.70-6.10); Total Protein 6.9 gm/dl (6.0-8.3); White Blood Count 25.49 K/ul (4.8-10.8)
[2023-01-20 12:47] LABS: Acanthocytes 1+; Basophils # (auto) 0.18 K/uL (0.00-0.20); Basophils % (auto) 0.7 %; Eosinophils # (auto) 0.11 K/uL (0.00-0.50); Eosinophils % (auto) 0.4 %; Howell-Jolly Bodies 1+; Immature Granulocytes % (auto) 0.4 %; Lymphocytes # (auto) 0.78 K/uL (1.20-3.40); Lymphocytes % (auto) 3.1 %; Monocytes # (auto) 3.04 K/uL (0.11-0.59); Monocytes % (auto) 11.9 %; Neutrophils # (auto) 21.28 K/uL (1.40-6.50); Neutrophils % (auto) 83.5 %; Polychromasia 1+; Target Cells 1+
[2023-01-20] MEDS ORDERED: SODIUM CHLORIDE 0.9% 1,000 ML IV ONE (12:55)
--- NOTE | 2023-01-20 13:28 | History & Physical Report ---
Date of Service January 20, 2023 Assessment & Plan (1) Sepsis: Plan: -Admit to med/tele -Currently stable and non-toxic appearing -Developed rigors this am after having left ureteral stent removed yesterday with Dr. Paris -Significant leukocytosis with neutrophile predominance, lactate of 2.7, UA consistent with UTI -S/P one dose of Ceftriaxone, dose of vancomycin, and 2L NSS (Covers sepsis bolus of 1936 mL) -Blood and urine cultures collected in the ED, tailor abx to results -Will continue with ceftriaxone for now as he is stable and does not have a hx of resistant organisms -No abdominal discomfort, negative BL CVA tenderness -Chest xray and CT of the abd/pelvis are in process, will review when ready -Will give 1L Plasmalyte at 100 mL/hr on admission as he appears dehydrated on exam -SQ lovenox for DVT PPX -Will order HH diet if CT of the abd/pelvis is negative for concerning findings -AM CBC, BMP (2) UTI (urinary tract infection): Plan: -Continue Ceftriaxone -Follow urine and blood cultures (3) Facial flushing: Plan: -Patient's son was concerned the patient may be developing facial flushing since receiving dose of Vancomycin in the ED -Patient with mild flushing of the face but is without itching, swelling of the face, oropharynx, or neck, without SOB, and without flushing on the rest of his torso -May be 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 Miller at the time of the admission History of Present Illness Chief Complaint: Chills Primary Care Provider: Vani Mauro Noelle is an 82 year old male with a PMH significant for recent left ureteral nephrolithiasis S/P Left Ureteronephroscopy, Retrograde Pyelogram, Laser Destruction of stone, ureteral dilation, Basket Extraction of the Stone, Insertion of Stent Catheter on 01/08 with subsequent stent removal yesterday by Dr. Paris, CAD s/p PCI (Cx and RCA), HTN, ITP S/P splenectomy, and BPH who presented to the [facility] ED on 01/20 with complaints of chills. The patient had his left ureteral stent removed with Dr. Paris yesterday and subsequently developed chills later in the day. He remained stable in the ED. Labs were significant for a leukocytosis of 25 with neutrophil predominance of 21, lymphopenia of 0.78, lactate of 2.7, UA with 1+ blood, 1+ leukocyte esterase, 10-30 WBC, and 3+ bacteria, with full respiratory biofire in process. CT of the abd/pelvis wo con was obtained and is in process. Prior to admission the patient was given 1L NSS, a dose of ceftriaxone and vancomycin, and ordered an additional 1L NSS. At the time of the exam the patient was sitting in bed in no acute distress with his son sitting bedisde. The confirm that he had his ureteral stent removed with Dr. Paris yesterday. He had some hematuria shortly after but this cleared throughout the day. This am he woke and was experiencing severe chills/shaking prompting him to come to the ED. He explains that he has a hx of Non-Hodkin's lymphoma and ITP. His IPT was prebously controlled with IVIG infusions until he had a stoke after his last treatment in 2019. Because of this he required splenectomy and has been stable since. He is currently feeling improved compared to arrival. We discussed code status, he is a DNR/DNI and his son is his POA. Please refer to Dr. Miller's attestation for any changes to the treatment plan Allergies Allergy/AdvReac Type Severity Reaction Status Date / Time ciprofloxacin Allergy Unknown "Muscle Verified 01/08/23 08:28 problems, split tendons" sulfamethoxazole Allergy Unknown Hives, Verified 01/08/23 08:28 "interferes with immune system" trimethoprim Allergy Unknown Hives, Verified 01/08/23 08:28 "interferes with immune system" morphine AdvReac Unknown Hallucinati Verified 01/08/23 08:28 ons oxycodone AdvReac Unknown Nausea Verified 01/08/23 08:28 Home Medications Medication Instructions Recorded Confirmed Type acetaminophen 500 mg tablet 1,000 mg PO Q6H PRN Pain 02/23/19 01/20/23 History (Tylenol Extra Strength) aspirin 81 mg tablet,delayed 81 mg PO QAM #0 tabs 02/25/19 01/20/23 Rx release (Ecotrin Low Strength) metoprolol succinate 50 mg 50 mg PO QAM 04/09/19 01/20/23 History tablet,extended release 24 hr nitroglycerin 0.4 mg sublingual 0.4 mg sublingual UD PRN chest 01/01/20 01/20/23 Rx tablet (Nitrostat) pain #30 tabs atorvastatin 80 mg tablet 80 mg PO HS #90 tabs 04/03/22 01/20/23 Rx ticagrelor 60 mg tablet (Brilinta) 60 mg PO BID #180 tabs 08/22/22 01/20/23 Rx amlodipine 5 mg tablet 5 mg PO HS 01/04/23 01/20/23 History losartan 100 mg tablet 100 mg PO QAM 01/04/23 01/20/23 History oxycodone-acetaminophen 7.5 mg-325 1 tab PO Q8H PRN pain #7 tabs 01/08/23 Rx mg tablet (Percocet) tamsulosin 0.4 mg capsule 0.4 mg PO HS #30 caps 01/08/23 01/20/23 Rx Past Med/Surg History Medical History Chronic anemia Dilated aortic root Echo 10/2022: Mild aortic root dilatation (4.3 cm). Mildly dilated ascending aorta (4.2 cm) Anemia History of kidney stones Diverticulitis of colon with perforation 2019, found incidentally on preop CTS prior to splenectomy. Micro-perforation with free air in abdomen. Admitted to hospital for evaluation. [place] non- surgical. Returned to ED a few days after discharge with [facility], surgical intervention considered, but pt ultimately transferred to [facility] and had abdominal drainage catheter placed. No recent issues. Left pontine stroke 2019. Per neurology consult, treatment of ITP with IVIG likely contributed. No residual deficits. Coronary stent thrombosis Presented with NSTEMI 02/23/19 and had single TONIA to Cx. Returned with chest pain 02/28/12 and found to have thrombosed stent, required additional PCI x 4. CAD (coronary artery disease) S/P TONIA x 5. Presented with NSTEMI 02/23/19 and had single TONIA to Cx. Returned with chest pain 02/28/12 and found to have thrombosed stent, required additional PCI x 4. Follows with [facility] cardio. Chronic ITP (idiopathic thrombocytopenia) Controlled, hx IVIG treatments in the past Mitral regurgitation Non-ST elevation (NSTEMI) myocardial infarction 02/2019 > stents x5 total Rheumatoid arthritis "Hx between ages 14-20 years old.. 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, [facility] [place] History of cardiac cath 02/2019 > stents x5 total History of total hip arthroplasty R/L History of cystoscopy + stone extraction History of lithotripsy History of colonoscopy History of appendectomy History of tooth extraction History of tonsillectomy Family History Father Cancer Other Hypertension Kidney disease No family history of adverse response to anesthesia Social History Smoking Status: Never smoker Tobacco Type: Cigarettes Second Hand Exposure: No; Do You Dip or Chew Tobacco: No; Hx Alcohol Use: Yes Alcohol type: wine and hard liquor Hx Substance Use: No Preferred Language: Yoruba Communication Ability: Effective Visual Impairment: No Limitations Band Ripsaw Operator Required: No Beliefs That Will Affect Care: None marital status: Current Living Situation: Alone Current Living Situation Comment: [place] Feels Safe at Home: Yes Assistive Devices: None Physical Exam Physical Exam: Physical Exam: General: In no acute distress, stated age, well-nourished, non-toxic appear ing HEENT: Normocephalic, atraumatic, mild facial flushing after receiving dose of Vancomycin per son, no scleral icterus, pupils around round, symmetrical, and reactive to light, moist mucus membranes, trachea midline, no thyromegaly Chest/Pulm: No respiratory distress, symmetrical chest expansion, clear breath sounds throughout Cardiac: RRR, no murmurs noted Abdomen: Negative for ascites and bruising, normoactive bowel sounds, soft, non-tender to palpation throughout : Negative CVA tenderness BL Musculoskeletal: Symmetrical and without signs of acute trauma, upper and lower extremities with full ROM, no atrophy, spasticity, or flaccidity Extremities: Radial, dorsalis pedis, and posterior tibial pulses are intact and symmetrical, no edema noted in the BL LE's Skin: No other flushing/erythema noted on the neck, chest, or back Neuro: Alert and oriented to person, place, month, year, and president, no focal defects, no tremors noted Psych: No acute distress, calm and cooperative during the exam Results & Data Results & Data Vital Signs (Past 12 Hours) Vital Signs Temp Pulse Pulse Resp BP BP Pulse Ox 01/20/23 12:30 87 01/20/23 12:25 89 20 150/79 H 99 01/20/23 12:09 90 20 98 01/20/23 11:16 36.7 C 103 H 20 205/87 H 96 O2 Del Method 01/20/23 12:30 01/20/23 12:25 Room Air 01/20/23 12:09 Room Air 01/20/23 11:16 Room Air Laboratory Results Abnormal lab results 01/20/23 01/20/23 01/20/23 Range/Units 11:16 11:56 12:09 WBC 25.49 H D (4.8-10.8) K/ul RBC 3.93 L (4.70-6.10) M/uL Hgb 11.8 L (14.0-18.0) g/dl Hct 35.9 L (42.0-52.0) % RDW Std Deviation 59.8 H (36.4-46.3) fL RDW Coeff of Katarina 17.9 H (11.5-14.5) % Neut # (Auto) 21.28 H (1.40-6.50) K/uL Lymph # (Auto) 0.78 L (1.20-3.40) K/uL [place] # (Auto) 3.04 H (0.11-0.59) K/uL Glucose 106 H (70-99(Fasting)) mg/dl Lactate 2.7 H* (0.4-2.0) mmol/L Urine Protein Trace H (Negative) Urine Blood 1+ H (Negative) Ur Leukocyte Esterase 1+ H (Negative) Urine WBC (Auto) 10-30 H (0-5) /hpf Urine Bacteria (Auto) 3+ H (Negative) ECG Additional Comments: Sinus rhythm with Premature atrial complexes Inferior infarct (cited on or before 17-FEB-2017) Abnormal ECG When compared with ECG of 11-JAN-2022 19:30, Premature atrial complexes are now Present Code Status & VTE Plan Code Status DNR/DNI VTE Prophylaxis Plan VTE Prophylaxis will be ordered: Yes Supervising Physician Co-Signing Physician Notes I personally saw and examined the patient. I verified all omalley points and agree with Erick Reis PA-C with the following exceptions and/or additions: 82 year old male presents to the ER with fever, chills. Already feeling better since admitted when see in bed 281. Recent stent removal makes UTI most likely source although with some concerning findings for acute bryson on CT however patient not having any abdominal pain. O/E HS RRR, no murmurs, Chest CTAB, Abdo SNT, no CVA tenderness A/P Sepsis - ceftriaxone 2g IV, suspected urine source. Lactate 2.7 -> 1.7 after NSS 1L bolus, patient appears adequately hydrated at this time. Agree with Plasma- Lyte for maintenance Possible acute bryson - add metronidazole, consult surgery although low suspicion this is driving his infection given recent ureteral stent exchange PG Care Time/CCT Total # of Minutes Spent Total Time Spent with Patient: Total time spent is greater than 50% in coordination of care (as documented) at patient's floor/unit and/or counseling patient: Coding [place] [address] INT INP/OBS CARE 2/55MIN Patient Type Established Medical Decision Making Moderate Complexity Diagnoses Sepsis A41.9 UTI (urinary tract infection) N39.0 Facial flushing R23.2 CAD (coronary artery disease) I25.119 Associated angina: with unspecified angina Coronary Disease-Associated Artery/Lesion type: unspecified vessel or lesion type [place] vs. transplanted heart: [place] heart BPH NOS w ur obs/LUTS N40.1 Chronic ITP (idiopathic thrombocytopenia) D69.3 Paroxysmal ventricular tachycardia I47.2 Hypertension I10 (4) CAD (coronary artery disease) Associated angina: with unspecified angina Coronary Disease-Associated Artery/Lesion type: unspecified vessel or lesion type [place] vs. transplanted heart: [place] heart Qualified Code(s): I25.119 - Atherosclerotic heart disease of [place] coronary artery with unspecified angina pectoris
[2023-01-20 13:31] LABS: Adenovirus PCR Not Detected (NotDetected); Bordetella parapertussis PCR Not Detected (NotDetected); Bordetella pertussis PCR Not Detected (NotDetected); Chlamydia pneumoniae PCR Not Detected (NotDetected); Coronavirus 229E PCR Not Detected (NotDetected); Coronavirus CoV-2 (COVID19)PCR Not Detected (NotDetected); Coronavirus HKU1 PCR Not Detected (NotDetected); Coronavirus NL63 PCR Not Detected (NotDetected); Coronavirus OC43PCR Not Detected (NotDetected); Human Metapneumovirus PCR Not Detected (NotDetected); Influenza A PCR Not Detected (NotDetected); Influenza B PCR Not Detected (NotDetected); Mycoplasma pneumoniae PCR Not Detected (NotDetected); Parainfluenza Virus 1 PCR Not Detected (NotDetected); Parainfluenza Virus 2 PCR Not Detected (NotDetected); Parainfluenza Virus 3 PCR Not Detected (NotDetected); Parainfluenza Virus 4 PCR Not Detected (NotDetected); Respiratory Syncytial VirusPCR Not Detected (NotDetected); Rhinovirus/Enterovirus PCR Not Detected (NotDetected)
[2023-01-20] MEDS ORDERED: diphenhydrAMINE 50 MG/ML VIAL IV PRN (14:06)
[2023-01-20] MEDS ORDERED: PLASMA-LYTE A 1,000 ML IV SCH (14:15)
--- NOTE | 2023-01-20 14:55 | CT Scan Report ---
CT SCAN OF THE ABDOMEN AND PELVIS WITHOUT IV CONTRAST CLINICAL HISTORY: Sepsis. Lymphoma. COMPARISON STUDY: Abdominal CT dated 12/30/2022 an 01/06/2022. TECHNIQUE: CT scan of the abdomen and pelvis is performed from the lung bases to the proximal femora. Images are reviewed in the axial, sagittal, and coronal planes. IV contrast was not administered for this examination. A dose lowering technique was utilized adhering to the principles of ALARA. CT DOSE: 1121.79 mGy.cm FINDINGS: Lung bases: The heart is mildly enlarged and without pericardial effusion. The coronary arteries are densely calcified. The lung bases are clear noting bibasilar scarring/atelectasis. There is a small h iatal hernia. Liver: The unenhanced liver is normal in size, contour, and attenuation. There is no intrahepatic cony iary ductal dilatation. Gallbladder: There is ill-defined soft tissue thickening in the region of the gallbladder fundus with surrounding infiltration. This closely approximates and may extend into the adjacent liver. Spleen: The spleen is not identified and presumed surgically absent. Pancreas: The unenhanced pancreas is mildly atrophic. Scattered parenchymal calcifications suggest ch ronic pancreatitis. Adrenal glands: Unremarkable. Kidneys: The unenhanced kidneys demonstrate mild cortical atrophy and are without hydronephrosis. No renal calculi are identified. A 6.8 cm cyst arises from the upper pole of the right kidney. Additiona l smaller cysts are noted. Abdominal vasculature: There is advanced atherosclerotic calcification and ectasia of the abdominal a efra. Bowel: There is moderate sigmoid diverticulosis without CT evidence of acute diverticulitis. No bowel obstruction is seen. The appendix is not identified and reported surgically absent. Peritoneum: There is no intraperitoneal free air or abdominal ascites. Lymphadenopathy: There are mildly enlarged retroperitoneal and iliac chain lymph nodes. A left periao rtic node on image #41 measures 1.8 x 1.4 cm. A left iliac chain node on image #179 measures 1.8 x 1. 1 cm and a right external iliac chain node on image #255 measures 2.5 x 1.0 cm. A prominent left ingu inal node on image #282 measures 1.6 x 1.3 cm. Pelvic viscera: Evaluation of the pelvis is degraded by streak artifact from bilateral hip arthroplas ties. The prostate gland is enlarged and heterogeneous. The bladder wall is thickened/trabeculated in dicating chronic outlet obstruction. There is mild pericystic inflammation, and gas is seen within th e bladder lumen. There are bilateral fat-containing inguinal hernias. Skeletal structures: The skeletal structures are heterogeneously osteopenic. Moderate moderate lumbos acral spondylosis is observed. No lytic or blastic lesions are seen. Bilateral hip arthroplasties are in place. IMPRESSION: 1. There is pericystic inflammation as well as gas within the bladder lumen. These findings may be re lated to recent instrumentation. Correlate with clinical findings and urinalysis. 2. No hydronephrosis. 3. The gallbladder wall appears thickened and heterogeneous with surrounding inflammation. This may e xtend into the adjacent hepatic parenchyma. This is pathologically indeterminant and may be related t o the reported history of lymphoma. An infectious/inflammatory process or primary gallbladder lesion good potentially appear similar. Ultrasound correlation is recommended. 4. Mildly enlarged retroperitoneal and iliac chain lymph nodes are similar to previous and likely rel ated to the reported history of lymphoma. 5. Splenectomy. 6. Colonic diverticulosis without CT evidence of acute diverticulitis. 7. Additional findings as above. ACT 112: Negative or not required by law. Electronically signed by: Valentino Navarro M.D. 01/20/2023 2:53 PM
--- NOTE | 2023-01-20 15:32 | XRay Report ---
SINGLE VIEW CHEST CLINICAL HISTORY: Sepsis FINDINGS: An AP, portable, upright chest radiograph is compared to study dated 01/03/2023 and correlat ed with chest CT dated 06/08/2022. The examination is degraded by portable technique and apical lordoti c positioning. The heart is enlarged. The pulmonary vasculature is noncongested. There is bibasilar scarring/atelectasis. No airspace consolidation or large pleural effusion is identified. No pneumotho rax is seen. The skeletal structures are osteopenic. The bony thorax is grossly intact. IMPRESSION: Cardiomegaly with no acute cardiopulmonary abnormality. ACT 112: Negative or not required by law. Electronically signed by: Valentino Navarro M.D. 01/20/2023 3:30 PM
--- NOTE | 2023-01-20 18:49 | Ultrasound Report ---
ULTRASOUND RIGHT UPPER QUADRANT ABDOMEN CLINICAL HISTORY: Abnormal gallbladder seen by CT. Sepsis. COMPARISON STUDY: Abdominal CT dated 01/20/2023. TECHNIQUE: Real-time, grayscale, and color flow sonography of the right upper quadrant of the abdomen was performed. Images are reviewed in the transverse and longitudinal planes. FINDINGS: Liver: The liver is normal in size and echotexture. There is no intrahepatic biliary ductal dilatatio n. The main portal vein is patent. Gallbladder: The gallbladder is filled with stones/sludge. The gallbladder wall is thickened measurin g up to 4 mm diameter and there is trace pericholecystic fluid. A sonographic Morejon's sign is report edly absent. The common bile duct measures up to 0.2 cm in diameter. Pancreas: Visualized portions of the pancreatic head and body are normal in appearance. The splenic v ein is patent. Right kidney: Survey images of the right kidney demonstrate normal size and echotexture. There is no hydronephrosis. A 6 cm cyst arises from the upper pole. Ascites: None. IMPRESSION: 1. The gallbladder is filled with stones/sludge, and there is gallbladder wall thickening with trace pericholecystic fluid. A sonographic Morejon sign is reportedly absent. Acute cholecystitis is not exc luded. A nuclear hepatobiliary scan is recommended for further assessment. 2. There is no intra or extrahepatic biliary ductal dilatation. ACT 112: Negative or not required by law. Electronically signed by: Valentino Navarro M.D. 01/20/2023 6:46 PM
[2023-01-20] MEDS: ENOXAPARIN INJ 40 MG/0.4 ML SYR SQ SCH (20:37)
[2023-01-20] MEDS: ATORVASTATIN 40 MG TAB PO SCH (20:37)
[2023-01-20] MEDS: metroNIDAZOLE 500 MG/100 ML BAG IV SCH (20:37)
[2023-01-20] MEDS ORDERED: TAMSULOSIN HCL 0.4 MG CAP PO SCH (21:00)
--- NOTE | 2023-01-20 22:49 | Surgery Consultation ---
Date of Consultation January 20, 2023 Assessment & Plan (1) Chronic cholecystitis with calculus: Assessment: Patient is a 82 years old gentleman presented to ED with chills, patient had a ureteral stent removal by urologist yesterday. UA 3 + bacteria, U/S and CT scan -gallstone with gallbladder wall thickening. But the patient denies any abdominal pain, no nausea, no vomiting, Plan: Based on patient having no abdominal pain, likely patient had a chronic cholecystitis with a gallstone. No emergency cholecystitis indication now. Cholecystectomy can be done outpatient setting. Treat the UTI first. Repeat the lab tomorrow. Patient agreed with the plan , I answered all questions . will F/U. History of Present Illness Reason for Consultation: cholecystitis Requesting Physician: Dr. Reis Attending Physician: Coy Miller MD History of Present Illness Patient is a 82 years old gentleman with past medical history of CAD s/p PCI (Cx and RCA), HTN, ITP S/P splenectomy, BPH, recent left ureteral nephrolithiasis S/P Left Ureteronephroscopy, Retrograde Pyelogram, Laser Destruction of stone, ureteral dilation, Basket Extraction of the Stone, Insertion of Stent Catheter on 01/08 with subsequent stent removal yesterday by Dr. [place], patient presented to ED with chills. Patient developed chills early this morning. Patient denies chest pain, no abdominal pain, no nausea,no vomiting, U/A bacteria 3+. WBC 25,000. U/S and CT scan -gallstone with gallbladder wall thickening. Allergies Allergy/AdvReac Type Severity Reaction Status Date / Time ciprofloxacin Allergy Unknown "Muscle Verified 01/08/23 08:28 problems, split tendons" sulfamethoxazole Allergy Unknown Hives, Verified 01/08/23 08:28 "interferes with immune system" trimethoprim Allergy Unknown Hives, Verified 01/08/23 08:28 "interferes with immune system" morphine AdvReac Unknown Hallucinati Verified 01/08/23 08:28 ons oxycodone AdvReac Unknown Nausea Verified 01/08/23 08:28 Home Medications Medication Instructions Recorded Confirmed Type acetaminophen 500 mg tablet 1,000 mg PO Q6H PRN Pain 02/23/19 01/20/23 History (Tylenol Extra Strength) aspirin 81 mg tablet,delayed 81 mg PO QAM #0 tabs 02/25/19 01/20/23 Rx release (Ecotrin Low Strength) metoprolol succinate 50 mg 50 mg PO QAM 04/09/19 01/20/23 History tablet,extended release 24 hr nitroglycerin 0.4 mg sublingual 0.4 mg sublingual UD PRN chest 01/01/20 01/20/23 Rx tablet (Nitrostat) pain #30 tabs atorvastatin 80 mg tablet 80 mg PO HS #90 tabs 04/03/22 01/20/23 Rx ticagrelor 60 mg tablet (Brilinta) 60 mg PO BID #180 tabs 08/22/22 01/20/23 Rx amlodipine 5 mg tablet 5 mg PO HS 01/04/23 01/20/23 History losartan 100 mg tablet 100 mg PO QAM 01/04/23 01/20/23 History oxycodone-acetaminophen 7.5 mg-325 1 tab PO Q8H PRN pain #7 tabs 01/08/23 Rx mg tablet (Percocet) tamsulosin 0.4 mg capsule 0.4 mg PO HS #30 caps 01/08/23 01/20/23 Rx Patient History Medical History Chronic anemia Dilated aortic root Echo 10/2022: Mild aortic root dilatation (4.3 cm). Mildly dilated ascending aorta (4.2 cm) Anemia History of kidney stones Diverticulitis of colon with perforation 2019, found incidentally on preop CTS prior to splenectomy. Micro-perforation with free air in abdomen. Admitted to hospital for evaluation. [place] non- surgical. Returned to ED a few days after discharge with BRBPR, surgical intervention considered, but pt ultimately transferred to [facility] and had abdominal drainage catheter placed. No recent issues. Left pontine stroke 2019. Per neurology consult, treatment of ITP with IVIG likely contributed. No residual deficits. Coronary stent thrombosis Presented with NSTEMI 02/23/19 and had single TONIA to Cx. Returned with chest pain 02/28/12 and found to have thrombosed stent, required additional PCI x 4. CAD (coronary artery disease) S/P TONIA x 5. Presented with NSTEMI 02/23/19 and had single TONIA to Cx. Returned with chest pain 02/28/12 and found to have thrombosed stent, required additional PCI x 4. Follows with [facility] [place] [facility]. Chronic ITP (idiopathic thrombocytopenia) Controlled, hx IVIG treatments in the past Mitral regurgitation Non-ST elevation (NSTEMI) myocardial infarction 02/2019 > stents x5 total Rheumatoid arthritis "Hx between ages 14-20 years old.. 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, [facility] [place] History of cardiac cath 02/2019 > stents x5 total History of total hip arthroplasty R/L History of cystoscopy + stone extraction History of lithotripsy History of colonoscopy History of appendectomy History of tooth extraction History of tonsillectomy Family History Father Cancer Other Hypertension Kidney disease No family history of adverse response to anesthesia Social History Smoking Status: Never smoker Tobacco Type: Cigarettes Second Hand Exposure: No; Do You Dip or Chew Tobacco: No; Hx Alcohol Use: Yes Alcohol type: wine and hard liquor Hx Substance Use: No Preferred Language: Portuguese Communication Ability: Effective Visual Impairment: No 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 Beliefs That Will Affect Care: None marital status: Current Living Situation: Alone Current Living Situation Comment: [place] Other Information That Helps Us Care for You: No Feels Safe at Home: Yes Safety Concerns: Feels Safe At This Time Assistive Devices: Glasses and Hearing Aid - Bilateral Review of Systems Constitutional: as per Subjective / HPI Eyes: as per Subjective / HPI Respiratory: as per Subjective / HPI Cardiovascular: Additional Comments: Hypertension, coronary artery disease, Gastrointestinal: as per Subjective / HPI (S/P splenectomy) Genitourinary: + as per Subjective / HPI and + problem reported (Kidney stone, recent left ureteral nephrolithiasis S/P Left Ureteronephroscopy, Retrograde Pyelogram, Laser Destruction of stone, ureteral dilation, Basket Extraction of the Stone, Insertion of Stent Catheter on 01/08 with subsequent stent removal yesterday) Neurologic: as per Subjective / HPI Psychiatric: as per Subjective / HPI Endocrine: as per Subjective / HPI Hematologic / Lymphatic: as per Subjective / HPI ITP, Physical Exam Constitutional: WD/WN, vitals as above No distress Eyes: PERRL, conjunctivae normal, anicteric sclerae Neck: trachea midline, no thyromegaly Respiratory: normal respiratory effort, lungs clear to auscultation Cardiovascular: RRR, no murmur, no edema Gastrointestinal (Abdomen): soft, no tenderness, no distend, BS +. Musculoskeletal: no cyanosis or clubbing, extremities motor strength 5/5 Neurologic: patellar DTR's 2+ bilat, sensation intact Psychiatric: A+Ox3, euthymic affect Results & Data Vital Signs (Past 12 Hours) Vital Signs Temp Pulse Pulse Pulse Resp BP BP 01/20/23 22:08 36.8 C 76 20 143/72 H 01/20/23 19:46 36.9 C 75 18 139/63 01/20/23 18:04 37.4 C 79 16 114/65 01/20/23 17:48 91 H 01/20/23 12:30 87 01/20/23 12:25 89 20 150/79 H 01/20/23 12:09 90 20 01/20/23 11:16 36.7 C 103 H 20 205/87 H Pulse Ox O2 Del Method 01/20/23 22:08 95 Room Air 01/20/23 19:46 94 Room Air 01/20/23 18:04 96 Room Air 01/20/23 17:48 01/20/23 12:30 01/20/23 12:25 99 Room Air 01/20/23 12:09 98 Room Air 01/20/23 11:16 96 Room Air Laboratory Results Lab Results 01/20/23 01/20/23 01/20/23 Range/Units 11:16 11:56 12:09 WBC 25.49 H D (4.8-10.8) K/ul RBC 3.93 L (4.70-6.10) M/uL Hgb 11.8 L (14.0-18.0) g/dl Hct 35.9 L (42.0-52.0) % MCV 91.3 (80.0-100.0) fL MCH 30.0 (25.0-34.0) pg MCHC 32.9 (32.0-36.0) g/dL RDW Std Deviation 59.8 H (36.4-46.3) fL RDW Coeff of Katarina 17.9 H (11.5-14.5) % Plt Count (130-400) K/uL MPV (9.4-12.4) fL Immature Gran % (Auto) 0.4 % Neut % (Auto) 83.5 % Lymph % (Auto) 3.1 % Pettis % (Auto) 11.9 % Eos % (Auto) 0.4 % Baso % (Auto) 0.7 % Neut # (Auto) 21.28 H (1.40-6.50) K/uL Lymph # (Auto) 0.78 L (1.20-3.40) K/uL Pettis # (Auto) 3.04 H (0.11-0.59) K/uL Eos # (Auto) 0.11 (0.00-0.50) K/uL Baso # (Auto) 0.18 (0.00-0.20) K/uL Immature Gran # (Auto) 0.10 (0.01-0.20) K/uL Plt Count ,Citrate 299 (130-400) K/uL Polychromasia 1+ Target Cells 1+ Yi-Crayne Bodies 1+ Acanthocytes (Spur) 1+ Sodium 138 (136-145) mmol/L Potassium 4.7 (3.5-5.1) mmol/L Chloride 107 (98-107) mmol/L Carbon Dioxide 23 (21-32) mmol/L Anion Gap 8 (3-11) BUN 17 (6-23) mg/dl Creatinine 1.14 (0.6-1.4) mg/dl Est Cr Clr Drug Dosing 47.9 ml/min Est GFR ( Amer) 68.5 ml/min Est GFR (Non-Af Amer) 59.1 ml/min BUN/Creatinine Ratio 14.9 (10-20) Glucose 106 H (70-99(Fasting)) mg/dl Lactate 2.7 H* (0.4-2.0) mmol/L Calcium 9.8 (8.6-10.3) mg/dl Magnesium 1.7 (1.7-2.4) mg/dl Total Bilirubin 0.7 (0.2-1.0) mg/dl Direct Bilirubin 0.1 (0-0.2) mg/dl AST 29 (13-39) U/L ALT 31 (7-52) U/L Alkaline Phosphatase 87 (34-104) U/L Total Protein 6.9 (6.0-8.3) gm/dl Albumin 4.0 (3.4-5.0) gm/dl Procalcitonin Cancelled Urine Color Yellow Urine Appearance Clear (Clear) Urine pH 5.5 (4.5-7.5) Ur Specific [place] 1.012 (1.000-1.030) Urine Protein Trace H (Negative) Urine Glucose (UA) Negative (Negative) Urine Ketones Negative (Negative) Urine Blood 1+ H (Negative) Urine Nitrite Negative (Negative) Urine Bilirubin Negative (Negative) Urine Urobilinogen Negative (Negative) Ur Leukocyte Esterase 1+ H (Negative) Urine WBC (Auto) 10-30 H (0-5) /hpf Urine RBC (Auto) 0-4 (0-4) /hpf U Hyaline Cast (Auto) 1-5 (0-5) /lpf U Epithel Cells (Auto) 0-5 (0-5) /lpf Urine Bacteria (Auto) 3+ H (Negative) Adenovirus (PCR) (NotDetected) B. pertussis DNA (PCR) (NotDetected) B.parapertussis DNA PCR (NotDetected) C. pneumoniae DNA (PCR) (NotDetected) Coronavirus OC43 (PCR) (NotDetected) Coronavirus HKU1 (PCR) (NotDetected) Coronavirus 229E (PCR) (NotDetected) SARS-CoV-2 (PCR) (NotDetected) Coronavirus NL63 (PCR) (NotDetected) Human Metapneumovir PCR (NotDetected) Influenza Type A (PCR) (NotDetected) Influenza Type B (PCR) (NotDetected) M. pneumoniae (PCR) (NotDetected) Parainfluenza 1 (PCR) (NotDetected) Parainfluenza 2 (PCR) (NotDetected) Parainfluenza 3 (PCR) (NotDetected) Parainfluenza 4 (PCR) (NotDetected) RSV (PCR) (NotDetected) Entero/Rhino (PCR) (NotDetected) 01/20/23 01/20/23 01/20/23 Range/Units 12:26 12:34 14:07 WBC (4.8-10.8) K/ul RBC (4.70-6.10) M/uL Hgb (14.0-18.0) g/dl Hct (42.0-52.0) % MCV (80.0-100.0) fL MCH (25.0-34.0) pg MCHC (32.0-36.0) g/dL RDW Std Deviation (36.4-46.3) fL RDW Coeff of Katarina (11.5-14.5) % Plt Count (130-400) K/uL MPV (9.4-12.4) fL Immature Gran % (Auto) % Neut % (Auto) % Lymph % (Auto) % Pettis % (Auto) % Eos % (Auto) % Baso % (Auto) % Neut # (Auto) (1.40-6.50) K/uL Lymph # (Auto) (1.20-3.40) K/uL P[place] # (Auto) (0.11-0.59) K/uL Eos # (Auto) (0.00-0.50) K/uL Baso # (Auto) (0.00-0.20) K/uL Immature Gran # (Auto) (0.01-0.20) K/uL Plt Count ,Citrate (130-400) K/uL Polychromasia Target Cells Yi-Crayne Bodies Acanthocytes (Spur) Sodium (136-145) mmol/L Potassium (3.5-5.1) mmol/L Chloride (98-107) mmol/L Carbon Dioxide (21-32) mmol/L Anion Gap (3-11) BUN (6-23) mg/dl Creatinine (0.6-1.4) mg/dl Est Cr Clr Drug Dosing ml/min Est GFR ( Amer) ml/min Est GFR (Non-Af Amer) ml/min BUN/Creatinine Ratio (10-20) Glucose (70-99(Fasting)) mg/dl Lactate 1.7 (0.4-2.0) mmol/L Calcium (8.6-10.3) mg/dl Magnesium (1.7-2.4) mg/dl Total Bilirubin (0.2-1.0) mg/dl Direct Bilirubin (0-0.2) mg/dl AST (13-39) U/L ALT (7-52) U/L Alkaline Phosphatase (34-104) U/L Total Protein (6.0-8.3) gm/dl Albumin (3.4-5.0) gm/dl Procalcitonin < 0.05 Urine Color Urine Appearance (Clear) Urine pH (4.5-7.5) Ur Specific [place] (1.000-1.030) Urine Protein (Negative) Urine Glucose (UA) (Negative) Urine Ketones (Negative) Urine Blood (Negative) Urine Nitrite (Negative) Urine Bilirubin (Negative) Urine Urobilinogen (Negative) Ur Leukocyte Esterase (Negative) Urine WBC (Auto) (0-5) /hpf Urine RBC (Auto) (0-4) /hpf U Hyaline Cast (Auto) (0-5) /lpf U Epithel Cells (Auto) (0-5) /lpf Urine Bacteria (Auto) (Negative) Adenovirus (PCR) Not Detected (NotDetected) B. pertussis DNA (PCR) Not Detected (NotDetected) B.parapertussis DNA PCR Not Detected (NotDetected) C. pneumoniae DNA (PCR) Not Detected (NotDetected) Coronavirus OC43 (PCR) Not Detected (NotDetected) Coronavirus HKU1 (PCR) Not Detected (NotDetected) Coronavirus 229E (PCR) Not Detected (NotDetected) SARS-CoV-2 (PCR) Not Detected (NotDetected) Coronavirus NL63 (PCR) Not Detected (NotDetected) Human Metapneumovir PCR Not Detected (NotDetected) Influenza Type A (PCR) Not Detected (NotDetected) Influenza Type B (PCR) Not Detected (NotDetected) M. pneumoniae (PCR) Not Detected (NotDetected) Parainfluenza 1 (PCR) Not Detected (NotDetected) Parainfluenza 2 (PCR) Not Detected (NotDetected) Parainfluenza 3 (PCR) Not Detected (NotDetected) Parainfluenza 4 (PCR) Not Detected (NotDetected) RSV (PCR) Not Detected (NotDetected) Entero/Rhino (PCR) Not Detected (NotDetected) Diagnostic Findings ULTRASOUND RIGHT UPPER QUADRANT ABDOMEN CLINICAL HISTORY: Abnormal gallbladder seen by CT. Sepsis. COMPARISON STUDY: Abdominal CT dated 01/20/2023. TECHNIQUE: Real-time, grayscale, and color flow sonography of the right upper quadrant of the abdomen was performed. Images are reviewed in the transverse and longitudinal planes. FINDINGS: Liver: The liver is normal in size and echotexture. There is no intrahepatic biliary ductal dilatation. The main portal vein is patent. Gallbladder: The gallbladder is filled with stones/sludge. The gallbladder wall is thickened measuring up to 4 mm diameter and there is trace pericholecystic fluid. A sonographic Morejon's sign is reportedly absent. The common bile duct measures up to 0.2 cm in diameter. Pancreas: Visualized portions of the pancreatic head and body are normal in appearance. The splenic vein is patent. Right kidney: Survey images of the right kidney demonstrate normal size and echotexture. There is no hydronephrosis. A 6 cm cyst arises from the upper pole. Ascites: None. IMPRESSION: 1. The gallbladder is filled with stones/sludge, and there is gallbladder wall thickening with trace pericholecystic fluid. A sonographic Morejon sign is reportedly absent. Acute cholecystitis is not excluded. A nuclear hepatobiliary scan is recommended for further assessment. 2. There is no intra or extrahepatic biliary ductal dilatation. ACT 112: Negative or not required by law. Electronically signed by: Valentino Navarro M.D. 01/20/2023 6:[address] SCAN OF THE ABDOMEN AND PELVIS WITHOUT IV CONTRAST CLINICAL HISTORY: Sepsis. Lymphoma. COMPARISON STUDY: Abdominal CT dated 12/30/2022 an 01/06/2022. TECHNIQUE: CT scan of the abdomen and pelvis is performed from the lung bases to the proximal femora. Images are reviewed in the axial, sagittal, and coronal planes. IV contrast was not administered for this examination. A dose lowering technique was utilized adhering to the principles of ALARA. CT DOSE: 1121.79 mGy.cm FINDINGS: Lung bases: The heart is mildly enlarged and without pericardial effusion. The coronary arteries are densely calcified. The lung bases are clear noting bibasilar scarring/atelectasis. There is a small hiatal hernia. Liver: The unenhanced liver is normal in size, contour, and attenuation. There is no intrahepatic biliary ductal dilatation. Gallbladder: There is ill-defined soft tissue thickening in the region of the gallbladder fundus with surrounding infiltration. This closely approximates and may extend into the adjacent liver. Spleen: The spleen is not identified and presumed surgically absent. Pancreas: The unenhanced pancreas is mildly atrophic. Scattered parenchymal calcifications suggest chronic pancreatitis. Adrenal glands: Unremarkable. Kidneys: The unenhanced kidneys demonstrate mild cortical atrophy and are without hydronephrosis. No renal calculi are identified. A 6.8 cm cyst arises from the upper pole of the right kidney. Additional smaller cysts are noted. Abdominal vasculature: There is advanced atherosclerotic calcification and ectasia of the abdominal aorta. Bowel: There is moderate sigmoid diverticulosis without CT evidence of acute diverticulitis. No bowel obstruction is seen. The appendix is not identified and reported surgically absent. Peritoneum: There is no intraperitoneal free air or abdominal ascites. Lymphadenopathy: There are mildly enlarged retroperitoneal and iliac chain lymph nodes. A left periaortic node on image #41 measures 1.8 x 1.4 cm. A left iliac chain node on image #179 measures 1.8 x 1.1 cm and a right external iliac chain node on image #255 measures 2.5 x 1.0 cm. A prominent left inguinal node on image #282 measures 1.6 x 1.3 cm. Pelvic viscera: Evaluation of the pelvis is degraded by streak artifact from bilateral hip arthroplasties. The prostate gland is enlarged and heterogeneous. The bladder wall is thickened/trabeculated indicating chronic outlet obstruction. There is mild pericystic inflammation, and gas is seen within the bladder lumen. There are bilateral fat-containing inguinal hernias. Skeletal structures: The skeletal structures are heterogeneously osteopenic. Moderate moderate lumbosacral spondylosis is observed. No lytic or blastic lesions are seen. Bilateral hip arthroplasties are in place. IMPRESSION: 1. There is pericystic inflammation as well as gas within the bladder lumen. These findings may be related to recent instrumentation. Correlate with clinical findings and urinalysis. 2. No hydronephrosis. 3. The gallbladder wall appears thickened and heterogeneous with surrounding inflammation. This may extend into the adjacent hepatic parenchyma. This is pathologically indeterminant and may be related to the reported history of lymphoma. An infectious/inflammatory process or primary gallbladder lesion good potentially appear similar. Ultrasound correlation is recommended. 4. Mildly enlarged retroperitoneal and iliac chain lymph nodes are similar to previous and likely related to the reported history of lymphoma. 5. Splenectomy. 6. Colonic diverticulosis without CT evidence of acute diverticulitis. 7. Additional findings as above. ACT 112: Negative or not required by law. Electronically signed by: Valentino Navarro M.D. 01/20/2023 2:53 PM
[2023-01-21] MEDS: metroNIDAZOLE 500 MG/100 ML BAG IV SCH ×3 (03:34→20:24)
[2023-01-21] MEDS: TAMSULOSIN HCL 0.4 MG CAP PO SCH (07:29)
[2023-01-21] MEDS: ASPIRIN 81 MG ECTAB PO SCH (07:29)
[2023-01-21] MEDS: METOPROLOL SUCC 50MG EXT REL TAB PO SCH (07:30)
[2023-01-21] MEDS: LOSARTAN POTASSIUM 50 MG TAB PO SCH (07:30)
[2023-01-21 07:44] LABS: Hemoglobin 9.8 g/dl (14.0-18.0); Mean Corpuscular Hemoglobin 29.8 pg (25.0-34.0); Mean Corpuscular Hgb Conc 32.7 g/dL (32.0-36.0); Mean Corpuscular Volume 91.2 fL (80.0-100.0); RDW Standard Deviation 59.5 fL (36.4-46.3); Red Blood Count 3.29 M/uL (4.70-6.10); White Blood Count 29.18 K/ul (4.8-10.8)
[2023-01-21 07:49] LABS: INR 1.4 (0.9-1.1); Prothrombin Time 15.1 Seconds (9.0-12.0)
[2023-01-21 07:51] LABS: Acanthocytes 2+; Basophils # (auto) 0.09 K/uL (0.00-0.20); Basophils % (auto) 0.3 %; Eosinophils # (auto) 0.01 K/uL (0.00-0.50); Immature Granulocytes # (auto) 0.28 K/uL (0.01-0.20); Lymphocytes % (auto) 5.1 %; Monocytes # (auto) 3.73 K/uL (0.11-0.59); Monocytes % (auto) 12.8 %; Neutrophils # (auto) 23.57 K/uL (1.40-6.50); Neutrophils % (auto) 80.8 %; Polychromasia 1+
[2023-01-21 08:08] LABS: BUN Creatinine Ratio 14.7 (10-20); Calcium 8.5 mg/dl (8.6-10.3); Creatinine Clr Calc Pharmacy 50.3 ml/min; Est GFR (African American) 72.4 ml/min; Est GFR (Non-African American) 62.4 ml/min; Magnesium 1.6 mg/dl (1.7-2.4); Potassium 3.6 mmol/L (3.5-5.1)
[2023-01-21] MEDS: TICAGRELOR 60 MG TAB PO SCH ×2 (10:30→20:24)
[2023-01-21] MEDS ORDERED: cefTRIAXone SODIUM 2,000 MG in DEXTROSE 5 % MINI-B 50 ML IV SCH (13:00)
--- NOTE | 2023-01-21 20:13 | Surgery Progress Note ---
Date of Service January 21, 2023 Assessment & Plan (1) Chronic cholecystitis with calculus: Plan: Assessment: Patient is a 82 years old gentleman presented to ED with chills, patient had a ureteral stent removal by urologist yesterday. UA 3 + bacteria, U/S and CT scan -gallstone with gallbladder wall thickening. But the patient denies any abdominal pain, no nausea, no vomiting, Plan: Based on patient having no abdominal pain, likely patient had a chronic cholecystitis with a gallstone. No emergency cholecystitis indication now. Cholecystectomy can be done outpatient setting. Treat the UTI first. Repeat the lab tomorrow. Patient agreed with the plan , I answered all questions . will F/U. 01/21/2023 8:14 PM doing better, no abdominal pain, tolerated diet, pt can be discharged home, F/U me 2 weeks for schedule out-patient cholecystectomy, , sign off, please call with questions, Admission and Anticipated Discharge Date Admission Date: January 20, 2023 Subjective F/U chronic cholecystitis, gallstone, pt is doing better, no abdominal pain, no fever, tolerated diet. Physical Exam Constitutional: WD/WN, vitals as above Eyes: PERRL, conjunctivae normal, anicteric sclerae Neck: trachea midline, no thyromegaly Respiratory: normal respiratory effort, lungs clear to auscultation Cardiovascular: RRR, no murmur, no edema Gastrointestinal (Abdomen): soft, NT, Nd, BS + Musculoskeletal: no cyanosis or clubbing, extremities motor strength 5/5 Neurologic: patellar DTR's 2+ bilat, sensation intact Psychiatric: A+Ox3, euthymic affect Results & Data Vital Signs (Past 12 Hours) Vital Signs Temp Pulse Pulse Resp BP Pulse Ox O2 Del Method 01/21/23 19:29 36.8 C 69 18 149/67 H 97 Room Air 01/21/23 15:15 77 01/21/23 15:00 37.8 C H 75 16 139/74 96 Room Air 01/21/23 11:49 37.6 C H 70 16 134/72 96 Room Air Laboratory Results Abnormal lab results 01/21/23 Range/Units 06:23 WBC 29.18 H (4.8-10.8) K/ul RBC 3.29 L (4.70-6.10) M/uL Hgb 9.8 L (14.0-18.0) g/dl Hct 30.0 L (42.0-52.0) % RDW Std Deviation 59.5 H (36.4-46.3) fL RDW Coeff of Katarina 18.0 H (11.5-14.5) % Neut # (Auto) 23.57 H (1.40-6.50) K/uL [place] # (Auto) 3.73 H (0.11-0.59) K/uL Immature Gran # (Auto) 0.28 H (0.01-0.20) K/uL PT 15.1 H (9.0-12.0) Seconds INR 1.4 H (0.9-1.1) Chloride 110 H (98-107) mmol/L Carbon Dioxide 20 L (21-32) mmol/L Calcium 8.5 L (8.6-10.3) mg/dl Magnesium 1.6 L (1.7-2.4) mg/dl
[2023-01-21] MEDS: ATORVASTATIN 40 MG TAB PO SCH (20:24)
[2023-01-21] MEDS: ENOXAPARIN INJ 40 MG/0.4 ML SYR SQ SCH (21:31)
--- NOTE | 2023-01-21 22:10 | Hospitalist Progress Note ---
Date of Service January 21, 2023 Assessment & Plan (1) Sepsis: Plan: -Admit to med/tele -Currently stable and non-toxic appearing -Developed rigors this am after having left ureteral stent removed yesterday with Dr. Paris -Significant leukocytosis with neutrophile predominance, lactate of 2.7, UA consistent with UTI -S/P one dose of Ceftriaxone, dose of vancomycin, and 2L NSS (Covers sepsis bolus of 1936 mL) -Blood and urine cultures collected in the ED, tailor abx to results Urine culture showing preliminary results of gram negative bacilli. -Will continue with ceftriaxone for now as he is stable and does not have a hx of resistant organisms -No abdominal discomfort, negative BL CVA tenderness -Chest xray and CT of the abd/pelvis are in process, will review when ready -Will give 1L Plasmalyte at 100 mL/hr on admission as he appears dehydrated on exam -SQ lovenox for DVT PPX (2) UTI (urinary tract infection): Plan: -Continue Ceftriaxone -Follow urine and blood cultures (3) Facial flushing: Plan: -Patient's son was concerned the patient may be developing facial flushing since receiving dose of Vancomycin in the ED -Patient with mild flushing of the face but is without itching, swelling of the face, oropharynx, or neck, without SOB, and without flushing on the rest of his torso -May be related to 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 from Vancomycin -PRN IV benadryl ordered, nurse made aware -Not continuing Vancomycin at this time -Continue to monitor (4) CAD (coronary artery disease): Plan: -No recent anginal symptoms -Continue aspirin, Brilinta, and statin (5) BPH NOS w ur obs/LUTS: Plan: -Continue flomax (6) Chronic ITP (idiopathic thrombocytopenia): Plan: -Stable -Continue to monitor daily CBC (7) Paroxysmal ventricular tachycardia: Plan: -Stable -Continue metoprolol (8) Hypertension: Plan: -Stable -Hold amlodipine to prevent hypotension for now -Can continue metoprolol and losartan for now Admission and Anticipated Discharge Date Admission Date: January 20, 2023 Subjective Patient reports no new symptoms. No rigors. Review of Systems Review of Systems: All systems reviewed & are unremarkable except as noted in HPI & below Physical Exam Physical Exam: General: In no acute distress, stated age, well-nourished, non-toxic appearing HEENT: Normocephalic, atraumatic Abdomen: Negative for ascites and bruising, normoactive bowel sounds, soft, non-tender to palpation throughout : Negative CVA tenderness BL Results & Data Results & Data Vital Signs (Past 12 Hours) Vital Signs Temp Pulse Pulse Resp BP Pulse Ox O2 Del Method 01/21/23 19:29 36.8 C 69 18 149/67 H 97 Room Air 01/21/23 15:15 77 01/21/23 15:00 37.8 C H 75 16 139/74 96 Room Air 01/21/23 11:49 37.6 C H 70 16 134/72 96 Room Air PG Care Time/CCT Total # of Minutes Spent Total Time Spent with Patient: Total time spent is greater than 50% in coordination of care (as documented) at patient's floor/unit and/or counseling patient: Coding Level of Care Code 85313 SUB INP/OBS CARE 2/35MIN Diagnoses Sepsis A41.9 UTI (urinary tract infection) N39.0 Facial flushing R23.2 CAD (coronary artery disease) I25.119 Associated angina: with unspecified angina Coronary Disease-Associated Artery/Lesion type: unspecified vessel or lesion type [place] vs. transplanted heart: [place] heart BPH NOS w ur obs/LUTS N40.1 Chronic ITP (idiopathic thrombocytopenia) D69.3 Paroxysmal ventricular tachycardia I47.2 Hypertension I10 (4) CAD (coronary artery disease) Associated angina: with unspecified angina Coronary Disease-Associated Artery/Lesion type: unspecified vessel or lesion type [place] vs. transplanted heart: [place] heart Qualified Code(s): I25.119 - Atherosclerotic heart disease of [place] coronary artery with unspecified angina pectoris
[2023-01-22] MEDS: metroNIDAZOLE 500 MG/100 ML BAG IV SCH (03:49)
[2023-01-22 07:50] LABS: Basophils # (auto) 0.14 K/uL (0.00-0.20); Basophils % (auto) 0.6 %; Echinocytes 2+; Eosinophils # (auto) 0.29 K/uL (0.00-0.50); Eosinophils % (auto) 1.2 %; Hematocrit (blood only) 29.2 % (42.0-52.0); Hemoglobin 9.8 g/dl (14.0-18.0); Immature Granulocytes # (auto) 0.15 K/uL (0.01-0.20); Immature Granulocytes % (auto) 0.6 %; Lymphocytes # (auto) 1.11 K/uL (1.20-3.40); Lymphocytes % (auto) 4.6 %; Mean Corpuscular Hemoglobin 29.9 pg (25.0-34.0); Mean Corpuscular Hgb Conc 33.6 g/dL (32.0-36.0); Monocytes % (auto) 15.8 %; Neutrophils # (auto) 18.57 K/uL (1.40-6.50); Neutrophils % (auto) 77.2 %; Nucleated RBC # (auto) 0.02 K/uL (0.00-0.12); Nucleated RBC % (auto) 0.1 %; Polychromasia 1+; RDW Coefficient of Variation 17.8 % (11.5-14.5); RDW Standard Deviation 58.5 fL (36.4-46.3); Red Blood Count 3.28 M/uL (4.70-6.10); White Blood Count 24.06 K/ul (4.8-10.8)
[2023-01-22 09:04] LABS: BUN Creatinine Ratio 14.5 (10-20); C Reactive Protein 16.83 mg/dl (0-0.5); Calcium 8.2 mg/dl (8.6-10.3); Creatinine Clr Calc Pharmacy 49.9 ml/min; Est GFR (African American) 71.6 ml/min; Est GFR (Non-African American) 61.8 ml/min; Potassium 3.7 mmol/L (3.5-5.1)
[2023-01-22] MEDS: METOPROLOL SUCC 50MG EXT REL TAB PO SCH (09:04)
[2023-01-22] MEDS: LOSARTAN POTASSIUM 50 MG TAB PO SCH (09:04)
[2023-01-22] MEDS: TAMSULOSIN HCL 0.4 MG CAP PO SCH (09:04)
[2023-01-22] MEDS: ASPIRIN 81 MG ECTAB PO SCH (09:04)
[2023-01-22] MEDS: TICAGRELOR 60 MG TAB PO SCH (09:05)
[2023-01-22] MEDS ORDERED: PIPERACILLIN/TAZOBACTAM 4.5 GM in DEXTROSE 5% MINI-B 100 ML IV SCH (11:00)
[2023-01-22] MEDS ORDERED: ERTAPENEM SODIUM 1,000 MG in SYRINGE 0 ML IV SCH (11:30)
--- NOTE | 2023-01-22 11:45 | Urology Consultation ---
Date of Consultation January 22, 2023 Assessment & Plan (1) Acute UTI: 82 yo M with hx of kidney stones admitted for rigors and suspected UTI status post ureteral stent removal. Patient afebrile overnight, hemodynamically stable Subjectively feeling much better today Labs reviewedWBC 24.06, creatinine 1.10 Blood cultures showing no growth x24 hours Urine culture with Klebsiella ESBL, resistant to ceftriaxone Switched to Ertapenem today No acute intervention at this time Continue supportive care and antibiotics per hospital medicine Can transition to appropriate PO antibiotic upon discharge Defer management of cholecystitis to surgical team will sign off, please contact us with any additional questions or concerns History of Present Illness Attending Physician: Blayne Castillo History of Present Illness This is an 82-year-old male with past medical history of hypertension, lymphoma, asplenia, rheumatoid arthritis, CAD, BPH, and kidney stones who presented to the emergency department on 01/20/2023 with rigors status post ureteral stent removal the previous day. On arrival, he was afebrile, but tachycardic and hypertensive. Lab work showed leukocytosis of 25.49, hemoglobin 11.8 creatinine 1.14, lactate 2.7. Urinalysis showed trace protein, 1+ blood, 1+ leukocyte esterase, 10-30 WBC, 3+ bacteria. Urine and blood cultures obtained. He was treated with IV fluids, vancomycin, ceftriaxone in the emergency department. He was admitted to the hospital medicine service. CT imaging showed pericystic inflammation as well as gas within the bladder lum en. No hydronephrosis. Gallbladder was noted to be thickened and heterogeneous with surrounding inflammation. He had a liver ultrasound for further evaluation which showed gallbladder filled with stones/sludge, gallbladder wall thickening with trace pericholecystic fluid. He was evaluated by surgery and felt to be chronic cholecystitis with calculus, no emergent plans. Urology is consulted for urosepsis. Patient is known to our service for nephrolithiasis. He is status post cystoscopy, left URSLL, left stent on 01/08/2023. Left ureteral stent was removed in clinic on 01/19/2023. Patient seen and examined at bedside this morning. Reports he is feeling much better today. Denies pain. Denies fever or chills. No nausea or vomiting. Voiding without difficulty. Allergies Allergy/AdvReac Type Severity Reaction Status Date / Time ciprofloxacin Allergy Unknown "Muscle Verified 01/08/23 08:28 problems, split tendons" sulfamethoxazole Allergy Unknown Hives, Verified 01/08/23 08:28 "interferes with immune system" trimethoprim Allergy Unknown Hives, Verified 01/08/23 08:28 "interferes with immune system" morphine AdvReac Unknown Hallucinati Verified 01/08/23 08:28 ons oxycodone AdvReac Unknown Nausea Verified 01/08/23 08:28 Home Medications Medication Instructions Recorded Confirmed Type acetaminophen 500 mg tablet 1,000 mg PO Q6H PRN Pain 02/23/19 01/20/23 History (Tylenol Extra Strength) aspirin 81 mg tablet,delayed 81 mg PO QAM #0 tabs 02/25/19 01/20/23 Rx release (Ecotrin Low Strength) metoprolol succinate 50 mg 50 mg PO QAM 04/09/19 01/20/23 History tablet,extended release 24 hr nitroglycerin 0.4 mg sublingual 0.4 mg sublingual UD PRN chest 01/01/20 01/20/23 Rx tablet (Nitrostat) pain #30 tabs atorvastatin 80 mg tablet 80 mg PO HS #90 tabs 04/03/22 01/20/23 Rx ticagrelor 60 mg tablet (Brilinta) 60 mg PO BID #180 tabs 08/22/22 01/20/23 Rx amlodipine 5 mg tablet 5 mg PO HS 01/04/23 01/20/23 History losartan 100 mg tablet 100 mg PO QAM 01/04/23 01/20/23 History oxycodone-acetaminophen 7.5 mg-325 1 tab PO Q8H PRN pain #7 tabs 01/08/23 Rx mg tablet (Percocet) tamsulosin 0.4 mg capsule 0.4 mg PO HS #30 caps 01/08/23 01/20/23 Rx Patient History Medical History Chronic anemia Dilated aortic root Echo 10/2022: Mild aortic root dilatation (4.3 cm). Mildly dilated ascending aorta (4.2 cm) Anemia History of kidney stones Diverticulitis of colon with perforation 2019, found incidentally on preop CTS prior to splenectomy. Micro-perforation with free air in abdomen. Admitted to hospital for evaluation. Jean non- surgical. Returned to ED a few days after discharge with BRBPR, surgical intervention considered, but pt ultimately transferred to [facility] and had abdominal drainage catheter placed. No recent issues. Left pontine stroke 2019. Per neurology consult, treatment of ITP with IVIG likely contributed. No residual deficits. Coronary stent thrombosis Presented with NSTEMI 02/23/19 and had single TONIA to Cx. Returned with chest pain 02/28/12 and found to have thrombosed stent, required additional PCI x 4. CAD (coronary artery disease) S/P TONIA x 5. Presented with NSTEMI 02/23/19 and had single TONIA to Cx. Returned with chest pain 02/28/12 and found to have thrombosed stent, required additional PCI x 4. [place] [facility] [place]. Chronic ITP (idiopathic thrombocytopenia) Controlled, hx IVIG treatments in the past Mitral regurgitation Non-ST elevation (NSTEMI) myocardial infarction 02/2019 > stents x5 total Rheumatoid arthritis "Hx between ages 14-20 years old.. 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, [facility] History of cardiac cath 02/2019 > stents x5 total History of total hip arthroplasty R/L History of cystoscopy + stone extraction History of lithotripsy History of colonoscopy History of appendectomy History of tooth extraction History of tonsillectomy Family History Father Cancer Other Hypertension Kidney disease No family history of adverse response to anesthesia Social History Smoking Status: Never smoker Tobacco Type: Cigarettes Second Hand Exposure: No; Do You Dip or Chew Tobacco: No; Hx Alcohol Use: Yes Alcohol type: wine and hard liquor Hx Substance Use: No Preferred Language: U[place] Communication Ability: Effective Visual Impairment: No 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 Airplane Required: No Beliefs That Will Affect Care: None marital status: Current Living Situation: Alone Current Living Situation Comment: [place] Other Information That Helps Us Care for You: No Feels Safe at Home: Yes Safety Concerns: Feels Safe At This Time Assistive Devices: None Review of Systems Review of Systems: All systems reviewed & are unremarkable except as noted in HPI & below Physical Exam Physical Exam: General: well-appearing, no acute distress HEENT: Normocephalic, mucous membranes moist Pulmonary: Nonlabored respirations Abdomen: Nondistended Extremities: Moves all 4 spontaneously Neuro: No gross deficits Psych: alert and oriented, normal mood Skin: Warm, dry, no rashes noted Results & Data Vital Signs (Past 12 Hours) Vital Signs Temp Pulse Pulse Pulse Resp BP BP 01/22/23 07:51 37.0 C 68 10 L 138/72 01/22/23 07:19 68 01/22/23 03:20 36.9 C 70 18 105/50 L Pulse Ox O2 Del Method 01/22/23 07:51 96 Room Air 01/22/23 07:19 01/22/23 03:20 96 Room Air PG Care Time/CCT Total # of Minutes Spent Total Time Spent with Patient: Total time spent is greater than 50% in coordination of care (as documented) at patient's floor/unit and/or counseling patient: Coding Level of Care Code 87780 INT INP/OBS CARE 2/55MIN Diagnoses Acute UTI N39.0
--- NOTE | 2023-01-22 16:03 | Discharge Summary ---
Date of Service January 22, 2023 Admission HPI Per Admitting Provider Noelle is an 82 year old male with a PMH significant for recent left ureteral nephrolithiasis S/P Left Ureteronephroscopy, Retrograde Pyelogram, Laser Destruction of stone, ureteral dilation, Basket Extraction of the Stone, Insertion of Stent Catheter on 01/08 with subsequent stent removal yesterday by Dr. Paris, CAD s/p PCI (Cx and RCA), HTN, ITP S/P splenectomy, and BPH who presented to the [facility] ED on 01/20 with complaints of chills. The patient had his left ureteral stent removed with Dr. Paris yesterday and subsequently developed chills later in the day. He remained stable in the ED. Labs were signi ficant for a leukocytosis of 25 with neutrophil predominance of 21, lymphopenia of 0.78, lactate of 2.7, UA with 1+ blood, 1+ leukocyte esterase, 10-30 WBC, and 3+ bacteria, with full respiratory biofire in process. CT of the abd/pelvis wo con was obtained and is in process. Prior to admission the patient was given 1L NSS, a dose of ceftriaxone and vancomycin, and ordered an additional 1L NSS. At the time of the exam the patient was sitting in bed in no acute distress with his son sitting bedisde. The confirm that he had his ureteral stent removed with Dr. Paris yesterday. He had some hematuria shortly after but this cleared throughout the day. This am he woke and was experiencing severe chills/shaking prompting him to come to the ED. He explains that he has a hx of Non-Hodkin's lymphoma and ITP. His IPT was prebously controlled with IVIG infusions until he had a stoke after his last treatment in 2019. Because of this he required splenectomy and has been stable since. He is currently feeling improved compared to arrival. We discussed code status, he is a DNR/DNI and his son is his POA. Please refer to Dr. Miller's attestation for any changes to the treatment plan Discharge Exam General: In no acute distress, stated age, well-nourished, non-toxic appearing HEENT: Normocephalic, atraumatic Abdomen: Negative for ascites and bruising, normoactive bowel sounds, soft, non-tender to palpation throughout : Negative CVA tenderness BL Discharge Data Allergies Allergy/AdvReac Type Severity Reaction Status Date / Time ciprofloxacin Allergy Unknown "Muscle Verified 01/08/23 08:28 problems, split tendons" sulfamethoxazole Allergy Unknown Hives, Verified 01/08/23 08:28 "interferes with immune system" trimethoprim Allergy Unknown Hives, Verified 01/08/23 08:28 "interferes with immune system" morphine AdvReac Unknown Hallucinati Verified 01/08/23 08:28 ons oxycodone AdvReac Unknown Nausea Verified 01/08/23 08:28 Consultations 01/20/23 13:23 ED Decision to Admit Stat 01/20/23 19:59 Consult General Surgery Routine 01/21/23 18:04 Consult Urology Routine Ordered Studies 01/20/23 12:54 CT stones [CT abd pelvis wo con] Stat 01/20/23 14:59 US RUQ [US liver] Routine Hospital Course (1) Sepsis: -Sepsis following a procedure The medical record reflects the following clinical evidence: Clinical Indicators: Pt presented after having a ureteral stent removed on 01/19. Diagnosed with sepsis and a UTI at time of ER presentation on 01/20 Treatment: 2L NSS bolus, IV vancomycin, IV rocephin, blood and urine cx Risk Factor(s): removal of ureteral stent Admit to med/tele -Currently stable and non-toxic appearing -Developed rigors this am after having left ureteral stent removed yesterday with Dr. Paris -Significant leukocytosis with neutrophile predominance, lactate of 2.7, UA consistent with UTI -S/P one dose of Ceftriaxone, dose of vancomycin, and 2L NSS (Covers sepsis bolus of 1936 mL) -Blood and urine cultures collected in the ED, tailor abx to results Urine culture showing preliminary results of gram negative bacilli. -Will continue with ceftriaxone for now as he is stable and does not have a hx of resistant organisms -No abdominal discomfort, negative BL CVA tenderness -Chest xray and CT of the abd/pelvis are in process, will review when ready -Will give 1L Plasmalyte at 100 mL/hr on admission as he appears dehydrated on exam -SQ lovenox for DVT PPX (2) UTI (urinary tract infection): -Continue Ceftriaxone -Follow urine and blood cultures (3) Facial flushing: -Patient's son was concerned the patient may be developing facial flushing since receiving dose of Vancomycin in the ED -Patient with mild flushing of the face but is without itching, swelling of the face, oropharynx, or neck, without SOB, and without flushing on the rest of his torso -May be related to 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 from Vancomycin -PRN IV benadryl ordered, nurse made aware -Not continuing Vancomycin at this time -Continue to monitor (4) CAD (coronary artery disease): -No recent anginal symptoms -Continue aspirin, Brilinta, and statin (5) BPH NOS w ur obs/LUTS: -Continue flomax (6) Chronic ITP (idiopathic thrombocytopenia): -Stable -Continue to monitor daily CBC (7) Paroxysmal ventricular tachycardia: -Stable -Continue metoprolol (8) Hypertension: -Stable -Hold amlodipine to prevent hypotension for now -Can continue metoprolol and losartan for now Discharge Plan Discharge Items Reason For Visit: SEPSIS, UTI Follow-up/Referrals: Vani Mauro [Primary Care Provider] - Pending Studies at Discharge: No Medications and DC Order Prescriptions: No Action nitroglycerin [Nitrostat] 0.4 mg tablet, sublingual 0.4 mg sublingual UD PRN (Reason: chest pain) Qty: 30 0RF Patient Comments: NEVER USED IT atorvastatin 80 mg tablet 80 mg PO HS Qty: 90 3RF Brilinta 60 mg tablet 60 mg PO BID Qty: 180 3RF metoprolol succinate 50 mg tablet extended release 24 hr 50 mg PO QAM acetaminophen [Tylenol Extra Strength] 500 mg Tablet 1,000 mg PO Q6H PRN (Reason: Pain) Patient Comments: pt was just discharged at 1200 after having a stent put in, has only taken what he received while admitted (02/25/19) aspirin [Ecotrin Low Strength] 81 mg Tablet,Delayed Release (Dr/Ec) 81 mg PO QAM Qty: 0 0RF Patient Comments: pt was just discharged at 1200 after having a stent put in, has only taken what he received while admitted (02/25/19) amlodipine 5 mg tablet 5 mg PO HS losartan 100 mg tablet 100 mg PO QAM tamsulosin 0.4 mg capsule 0.4 mg PO HS Qty: 30 0RF oxycodone-acetaminophen [Percocet] 7.5-325 mg tablet 1 tab PO Q8H PRN (Reason: pain) Qty: 7 0RF Admission Data Admit Date/Time: 01/20/23 13:28 Attending Provider: Blayne Castillo Admit Provider: Coy Miller Primary Care Provider: Vani Mauro Other Providers: Coy Miller; Zulema Matias; Jarrett Lagos; Rupert Orourke; Cristian Helm; Ana Frost; Dagoberto Paris; Anais Loza; Samreen Weaver; Jeet Garcia; Gauri Raman; Bart Vital; Solo Bailey Coding Diagnoses Sepsis A41.9 UTI (urinary tract infection) N39.0 Facial flushing R23.2 CAD (coronary artery disease) I25.119 Associated angina: with unspecified angina Coronary Disease-Associated Artery/Lesion type: unspecified vessel or lesion type [place] vs. transplanted heart: [place] heart BPH NOS w ur obs/LUTS N40.1 Chronic ITP (idiopathic thrombocytopenia) D69.3 Paroxysmal ventricular tachycardia I47.2 Hypertension I10
--- NOTE | 2023-01-22 22:03 | Electrocardiogram Report ---
Test Reason : Blood Pressure : / mmHG Vent. Rate : 087 BPM Atrial Rate : 087 BPM P-R Int : 158 ms QRS Dur : 088 ms QT Int : 346 ms P-R-T Axes : 082 013 041 degrees QTc Int : 416 ms Sinus rhythm with Premature atrial complexes Inferior infarct (cited on or before 17-FEB-2017) Abnormal ECG When compared with ECG of 11-JAN-2022 19:30, Premature atrial complexes are now Present Confirmed by Je Sorenson ([id number]) on 01/22/2023 10:03:14 PM Referred By: REFERRED SELF Confirmed By:Je Sorenson
== END 2023-01-22 18:33 | disposition home or self-care (01) | DRG 863 ==
LOC: ED 11:15 → 2N 13:28 → SUATTDRO 13:28 → 2N 16:06

== ENCOUNTER 2023-09-13 12:06 | Inpatient (IN) ==
[2023-09-13 12:47] LABS: Albumin Globulin Ratio 1.2 (0.9-2); Albumin Level 3.8 gm/dl (3.4-5.0); BUN Creatinine Ratio 17.1 (10-20); Bilirubin,Total 0.9 mg/dl (0.2-1.0); Calcium 10.9 mg/dl (8.6-10.3); Creatinine Clr Calc Pharmacy 32.6 ml/min; Est GFR (African American) 48.1 ml/min; Est GFR (Non-African American) 41.5 ml/min; Globulin 3.2 gm/dl (2.5-4.0); Potassium 4.5 mmol/L (3.5-5.1)
--- NOTE | 2023-09-13 12:50 | Emergency Department Note ---
Impression & Plan SOB (shortness of breath), Asplenia, Pneumonia, History of general anesthesia ED Provider Note NAME: LAVELLE FAGAN AGE: 83 SEX: M : 1940 ARRIVES VIA: Walk-In INFORMANT: [Patient] ED PROVIDER(S): [Valentino Berrios MD] CHIEF COMPLAINT: DrGeri Referred HISTORY OF PRESENT ILLNESS: The patient is an 83-year-old male who 2 days ago had a work done on his left eye for a droopy lower lid. Basically, they tightened the structures so that he would not have tearing. The patient did have anesthesia, general anesthesia for the procedure. He was discharged yesterday. The patient states that last night, he caught himself taking deeper breaths. He was able to sleep. This morning, he again noticed that he would feel the need to take a deep breath. Patient felt somewhat shaky. Because of his circumstances, he went to urgent care, they referred him to the ER for more of a workup. There is no chest pain. There has not been fever or chills. No vomiting or diarrhea. The patient states that his voice is still somewhat hoarse from the anesthesia and intubation. Of note, the patient had held his Brilinta for about a week, he just restarted it yesterday. PMHx/PSHx/Social Hx: See Below PHYSICAL EXAM: GENERAL: Patient is in no acute distress. HEENT: No acute trauma, normocephalic atraumatic, mucous membranes moist, no nasal congestion. NECK: No stridor, no adenopathy, no meningismus, trachea is midline. LUNGS: Clear to auscultation bilaterally, no wheeze, no rhonchi, breath sounds equal. HEART: Without murmurs gallops or rubs, regular rate and rhythm. ABDOMEN: Soft, nontender, no peritonitis. EXTREMITIES: No cyanosis, full range of motion of all the joints without pain or difficulty. NEUROLOGIC: Oriented x 3, no acute motor or sensory deficits, no focal weakness. SKIN: No jaundice, no diaphoresis. DIFFERENTIAL DIAGNOSIS: Medication reaction, CHF, pneumonia or pneumothorax, anemia, electrolyte imbalance, dysrhythmia, among others. EMERGENCY DEPARTMENT PROCEDURES: MEDICAL DECISION MAKING: There is a mild leukocytosis, the patient has a history of the same. A very subtle anemia was seen. Platelet count was recorded as adequate. No coagulopathy. There was some mild acute kidney injury/dehydration with a creatinine of 1.52. No concerning liver enzyme elevation. ECG shows a normal sinus rhythm with LVH, no acute ischemia. Cardiac enzyme testing x 2 was slightly elevated although, the values were stable, no acute injury by our troponin testing. Chest x-ray did not show CHF or pneumonia. Chest CT does show upper lung pneumonia bilaterally. On exam, the patient was not wheezing. He was borderline hypoxic with a saturation at 90 to 91%. The patient was given a 500 cc saline bolus. He received a DuoNeb, he was given IV ceftriaxone as antibiotic coverage. Patient presents with dyspnea. He was a borderline hypoxic. He did have a leukocytosis as well as CT imaging suggesting pneumonia. He may have aspirated during his general anesthesia yesterday. Given the findings today, given his history of asplenia, I do think a hospital stay is warranted. I spoke with the patient and case management, the on-call hospitalist was consulted. Prior/Outside records/notes reviewed: None ECG per my interpretation: Indication was shortness of breath. The ECG shows a normal sinus rhythm with a rate of 83. LVH is present. There is no acute ST elevation, there are no PVCs. The QTc is 423. Continuous Cardiac Monitoring per my interpretation: An order was placed for continuous cardiac monitoring. The monitor shows a rate of 82 with normal sinus rhythm. Imaging/x-ray results per my interpretation: Chest x-ray does not show mediastinal widening, pneumonia or CHF. Chronic Medical/Social conditions affecting care: Advanced age. Care/Management discussed with: Case management, the on-call hospitalist. Level of care consideration(s): After review of the information above and other included data: --I believe the patient requires escalation of care to admission DISPOSITION: Admission Past Med/Surg History Problem List History of general anesthesia (Acute) Pneumonia (Acute) Asplenia (Acute) SOB (shortness of breath) (Acute) Wears hearing aid in both ears Delia Rodrigues [id number] BTE-Nathalia disp 06/28/21 Acute UTI Chronic cholecystitis with calculus Asplenia (Acute) Elevated lactic acid level (Acute) Sepsis (Acute) Facial flushing Rigors (Acute) Dyslipidemia Sensorineural hearing loss (SNHL) of both ears Kidney stones, calcium oxalate (Acute) Encounter for pre-operative examination BPH NOS w ur obs/LUTS Encounter for pre-operative examination Hypokalemia Elevated bilirubin DVT prophylaxis Chronic ITP (idiopathic thrombocytopenia) (Acute) Unstable gait Aphasia Dysarthria BPH w urinary obs/LUTS Bilateral kidney stones Jaw pain Bilateral arm pain Paroxysmal ventricular tachycardia GERD (gastroesophageal reflux disease) Rheumatoid arthritis Lymphoma Hypertension Sepsis Prostatitis CAD (coronary artery disease) S/P TONIA x 5. Presented with NSTEMI 02/23/19 and had single TONIA to Cx. Returned with chest pain 02/28/12 and found to have thrombosed stent, required additional PCI x 4. Follows with [facility] cardio. Dilated aortic root Echo 10/2022: Mild aortic root dilatation (4.3 cm). Mildly dilated ascending aorta (4.2 cm) Anemia Medical History Chronic anemia History of kidney stones Diverticulitis of colon with perforation 2019, found incidentally on preop CTS prior to splenectomy. Micro-perforation with free air in abdomen. Admitted to hospital for evaluation. [place] non- surgical. Returned to ED a few days after discharge with BRBPR, surgical intervention considered, but pt ultimately transferred to [facility] and had abdominal drainage catheter placed. No recent issues. Left pontine stroke 2019. Per neurology consult, treatment of ITP with IVIG likely contributed. No residual deficits. Coronary stent thrombosis Presented with NSTEMI 02/23/19 and had single TONIA to Cx. Returned with chest pain 02/28/12 and found to have thrombosed stent, required additional PCI x 4. Chronic ITP (idiopathic thrombocytopenia) Controlled, hx IVIG treatments in the past Mitral regurgitation Non-ST elevation (NSTEMI) myocardial infarction 02/2019 > stents x5 total Rheumatoid arthritis "Hx between ages 14-20 years old.. now resolved" per patient BPH (benign prostatic hyperplasia) Lymphoma Dx 2017, "low grade" Non-hodgkins Hypertension Surgical History Hx of transurethral resection of prostate History of cataract surgery History of surgery History of total splenectomy History of cardiac cath History of total hip arthroplasty History of cystoscopy History of lithotripsy History of colonoscopy History of appendectomy History of tooth extraction History of tonsillectomy Family History Father Cancer Other Hypertension Kidney disease No family history of adverse response to anesthesia Social History Smoking Status: Never smoker Tobacco Type: Cigarettes Second Hand Exposure: No; Do You Dip or Chew Tobacco: No; Hx Alcohol Use: Yes Alcohol type: wine and hard liquor Hx Substance Use: No Preferred Language: Lithuanian Communication Ability: Effective Visual Impairment: No Limitations Holter Scanning Technician Required: No Beliefs That Will Affect Care: None marital status: Current Living Situation: Alone Current Living Situation Comment: Sary Feels Safe at Home: Yes Assistive Devices: None Allergies Allergies Allergy/AdvReac Type Severity Reaction Status Date / Time ciprofloxacin Allergy Unknown "Muscle Verified 09/13/23 10:46 problems, split tendons" sulfamethoxazole Allergy Unknown Hives, Verified 09/13/23 10:46 "interferes with immune system" trimethoprim Allergy Unknown Hives, Verified 09/13/23 10:46 "interferes with immune system" morphine AdvReac Unknown Hallucinati Verified 09/13/23 10:46 ons oxycodone AdvReac Unknown Nausea Verified 09/13/23 10:46 Home Meds Home Medications Medication Instructions Recorded Confirmed acetaminophen 500 mg tablet 1,000 mg PO Q6H PRN Pain 02/23/19 09/13/23 (Tylenol Extra Strength) metoprolol succinate 50 mg 50 mg PO QAM 04/09/19 09/13/23 tablet,extended release 24 hr amlodipine 5 mg tablet 5 mg PO HS 01/04/23 09/13/23 losartan 100 mg tablet 100 mg PO QAM 01/04/23 09/13/23 Previous Rx's Medication Instructions Recorded aspirin 81 mg tablet,delayed 81 mg PO QAM #0 tabs 02/25/19 release (Ecotrin Low Strength) nitroglycerin 0.4 mg sublingual 0.4 mg sublingual UD PRN chest 01/01/20 tablet (Nitrostat) pain #30 tabs atorvastatin 80 mg tablet 80 mg PO HS #90 tabs 04/03/23 ticagrelor 60 mg tablet (Brilinta) 60 mg PO BID #180 tabs 09/10/23 Results & Data (ED) Vital Signs Vital Signs - 24 hr 09/13/23 12:08 09/13/23 12:16 09/13/23 12:16 Temperature 36.4 C L Temperature Source Temporal Artery Scan Pulse Rate 88 Pulse Rate [Apical] Pulse Rhythm Regular Pulse Strength Normal Respiratory Rate 16 Respiratory Effort / Characteristics Non-Labored Respiratory Depth Normal Respiratory Pattern Regular Blood Pressure 162/88 H Blood Pressure [Left Arm] Blood Pressure Mean 112 Blood Pressure Mean [Left Arm] Blood Pressure Position Sitting Pulse Oximetry 94 95 95 Oxygen Delivery Method Room Air Room Air Room Air Oxygen Flow Rate 0 Sepsis Recent Fever Within 48 Hours No Sepsis New/Unexplained Change in Mental Status N/A Sepsis Action Taken by Nursing No Action Required 09/13/23 12:27 09/13/23 14:07 09/13/23 16:26 Temperature Temperature Source Pulse Rate 82 Pulse Rate [Apical] 86 87 Pulse Rhythm Pulse Strength Respiratory Rate 22 22 Respiratory Effort / Characteristics Non-Labored Spontaneous Non-Labored Spontaneous Respiratory Depth Normal Normal Respiratory Pattern Regular Regular Blood Pressure Blood Pressure [Left Arm] 174/92 H 171/89 H Blood Pressure Mean Blood Pressure Mean [Left Arm] 119 116 Blood Pressure Position Pulse Oximetry 93 94 Oxygen Delivery Method Room Air Room Air Oxygen Flow Rate Sepsis Recent Fever Within 48 Hours Sepsis New/Unexplained Change in Mental Status Sepsis Action Taken by Nursing 09/13/23 16:30 Temperature Temperature Source Pulse Rate 86 Pulse Rate [Apical] Pulse Rhythm Pulse Strength Respiratory Rate Respiratory Effort / Characteristics Respiratory Depth Respiratory Pattern Blood Pressure Blood Pressure [Left Arm] Blood Pressure Mean Blood Pressure Mean [Left Arm] Blood Pressure Position Pulse Oximetry Oxygen Delivery Method Oxygen Flow Rate Sepsis Recent Fever Within 48 Hours Sepsis New/Unexplained Change in Mental Status Sepsis Action Taken by Alf Medications Current Medication List: was personally reviewed by me Laboratory Data Attestation: I reviewed the patient's lab results. 09/13/23 12:20 09/13/23 12:20 Lab Results 09/13/23 09/13/23 Range/Units 12:20 14:13 WBC 14.20 H (4.8-10.8) K/ul RBC 4.75 (4.70-6.10) M/uL Hgb 13.4 L (14.0-18.0) g/dl Hct 40.8 L (42.0-52.0) % MCV 85.9 (80.0-100.0) fL MCH 28.2 (25.0-34.0) pg MCHC 32.8 (32.0-36.0) g/dL RDW Std Deviation 63.2 H (36.4-46.3) fL RDW Coeff of Katarina 20.7 H (11.5-14.5) % Plt Count (130-400) K/uL MPV 11.1 (9.4-12.4) fL Immature Gran % (Auto) 1.1 % Neut % (Auto) 82.6 % Lymph % (Auto) 4.5 % Gray % (Auto) 10.6 % Eos % (Auto) 0.1 % Baso % (Auto) 1.1 % Neut # (Auto) 11.72 H (1.40-6.50) K/uL Lymph # (Auto) 0.64 L (1.20-3.40) K/uL Gray # (Auto) 1.50 H (0.11-0.59) K/uL Eos # (Auto) 0.02 (0.00-0.50) K/uL Baso # (Auto) 0.16 (0.00-0.20) K/uL Immature Gran # (Auto) 0.16 (0.01-0.20) K/uL Absolute Nucleated RBC 0.05 (0.00-0.12) K/uL Nucleated RBC % (auto) 0.4 % Polychromasia 2+ Target Cells 1+ PT 12.1 H (9.0-12.0) Seconds INR 1.1 (0.9-1.1) APTT 25 (21-31) Seconds PTT Ratio 0.9 Sodium 139 (136-145) mmol/L Potassium 4.5 (3.5-5.1) mmol/L Chloride 103 (98-107) mmol/L Carbon Dioxide 26 (21-32) mmol/L Anion Gap 10 (3-11) BUN 26 H (6-23) mg/dl Creatinine 1.52 H (0.6-1.4) mg/dl Est Cr Clr Drug Dosing 32.6 ml/min Est GFR ( Amer) 48.1 ml/min Est GFR (Non-Af Amer) 41.5 ml/min BUN/Creatinine Ratio 17.1 (10-20) Glucose 111 H (70-99(Fasting)) mg/dl Calcium 10.9 H (8.6-10.3) mg/dl Magnesium 2.0 (1.7-2.4) mg/dl Total Bilirubin 0.9 (0.2-1.0) mg/dl AST 34 (13-39) U/L ALT 46 (7-52) U/L Alkaline Phosphatase 58 (34-104) U/L Troponin I High Sens 26.2 H 20.0 D (0-20) pg/ml Total Protein 7.0 (6.0-8.3) gm/dl Albumin 3.8 (3.4-5.0) gm/dl Globulin 3.2 (2.5-4.0) gm/dl Albumin/Globulin Ratio 1.2 (0.9-2) Administered Medications Discontinued Medications Sodium Chloride (Nss) 500 mls @ 999 mls/hr IV .Q31M ONE Stop: 09/13/23 13:22 Last Infusion: 09/13/23 13:47 Dose: Infused Documented By: Admin: 09/13/23 13:18 Dose: 999 mls/hr Documented By: MARY Ioversol (Optiray 320 125ml) 119 ml IV ONCE ONE Stop: 09/13/23 16:08 Last Admin: 09/13/23 16:07 Dose: 119 ml Documented By: AVINASH Imaging Data Radiologist's Impression: Chest X-Ray 09/13/23 12:16 XR chest 1V portable HISTORY: 83 years-old Male Chest pain, nonspecific COMPARISON: Chest CT 07/18/2023 TECHNIQUE: AP view of the chest FINDINGS: Cardiac silhouette is enlarged. Coronary arterial stent. No pneumothorax, pleural effusion or airspace consolidation. Bones appear grossly intact. IMPRESSION: No acute process. ACT 112: Negative or not required by law. The above report was generated using voice recognition software. It may contain grammatical, syntax or spelling errors. Electronically signed by: Jonn Chaney M.D. 09/13/2023 2:13 PM Chest CTA 09/13/23 15:23 CHEST CTA for PULMONARY ARTERIES CT DOSE: 737.78 mGy.cm HISTORY: Shortness of breath. TECHNIQUE: Multiaxial CT images of the chest were performed following the intravenous administration of contrast to evaluate the pulmonary arteries. 3D/Maximal intensity projection images were also obtained. Sagittal and coronal reformations were also reviewed. A dose lowering technique was utilized adhering to the principles of ALARA. COMPARISON STUDY: Chest CT 07/18/2023. FINDINGS: No evidence for an aortic dissection. The ascending thoracic aorta measures up to 4.2 cm in diameter. This is similar to the prior study. The heart is borderline enlarged. Trace right pleural effusion. No filling defects within the pulmonary arteries to suggest a pulmonary embolus. Severe coronary artery calcifications are again noted. Left thyroid nodules again noted with the dominant nodule measuring 2.5 cm. Normal esophagus. Limited views of the upper abdomen demonstrate a normal liver and adrenal glands. The spleen appears surgically absent. The partially visualized right renal cyst. Multiple subcentimeter mediastinal lymph nodes do not meet CT criteria for pathologic involvement. These remain stable. Mild right axillary/subpectoral lymphadenopathy is similar to the prior study. No acute fractures within the chest. The central airways are patent. Upper lobe predominant multifocal groundglass airspace opacities seen throughout the lungs. This is new compared to the prior study and favors an atypical pneumonitis. This could be due to a viral process. Stable nodular thickening along the right major fissure. IMPRESSION: 1. No evidence for pulmonary embolus. 2. Upper lobe predominant multifocal groundglass airspace opacities seen throughout the lungs. This is new compared to the prior study and favors an atypical pneumonitis. This could be due to a viral process. 3. Trace right pleural effusion. 4. Additional findings as described above. ACT 112: Negative or not required by law. Electronically signed by: Mele Moore M.D. 09/13/2023 5:07 PM Discharge Plan Visit Data Chief Complaint: Referred by Doctor Stated Complaint: REFERRED BY DR MATTHEW Provider: Valentino Berrios Discharge Problem: SOB (shortness of breath), Asplenia, Pneumonia, History of general anesthesia Patient Disposition: Admitted As Inpatient Condition: Fair Forms Stand Alone Forms: [employer] Prescriptions Prescriptions: No Action nitroglycerin [Nitrostat] 0.4 mg tablet, sublingual 0.4 mg sublingual UD PRN (Reason: chest pain) Qty: 30 0RF Patient Comments: NEVER USED IT atorvastatin 80 mg tablet 80 mg PO HS Qty: 90 3RF Brilinta 60 mg tablet 60 mg PO BID Qty: 180 3RF metoprolol succinate 50 mg tablet extended release 24 hr 50 mg PO QAM acetaminophen [Tylenol Extra Strength] 500 mg Tablet 1,000 mg PO Q6H PRN (Reason: Pain) Patient Comments: pt was just discharged at 1200 after having a stent put in, has only taken what he received while admitted (02/25/19) aspirin [Ecotrin Low Strength] 81 mg Tablet,Delayed Release (Dr/Ec) 81 mg PO QAM Qty: 0 0RF Patient Comments: pt was just discharged at 1200 after having a stent put in, has only taken what he received while admitted (02/25/19) amlodipine 5 mg tablet 5 mg PO HS losartan 100 mg tablet 100 mg PO QAM Referrals Referrals: Vani Mauro MD [Primary Care Provider] - Discharge Problem: Pneumonia Qualifiers: Pneumonia type: aspiration pneumonia Aspiration pneumonia type: unspecified L aterality: bilateral Lung location: upper lobe of lung Qualified Code(s): J69.0 - Pneumonitis due to inhalation of food and vomit
[2023-09-13 12:53] LABS: Troponin I High Sensitivity 26.2 pg/ml (0-20)
[2023-09-13 12:54] LABS: INR 1.1 (0.9-1.1); Partial Thromboplastin Ratio 0.9; Partial Thromboplastin Time 25 Seconds (21-31); Prothrombin Time 12.1 Seconds (9.0-12.0)
[2023-09-13 12:55] LABS: Hematocrit (blood only) 40.8 % (42.0-52.0); Hemoglobin 13.4 g/dl (14.0-18.0); Mean Corpuscular Hemoglobin 28.2 pg (25.0-34.0); Mean Corpuscular Hgb Conc 32.8 g/dL (32.0-36.0); Mean Corpuscular Volume 85.9 fL (80.0-100.0); RDW Coefficient of Variation 20.7 % (11.5-14.5); RDW Standard Deviation 63.2 fL (36.4-46.3); Red Blood Count 4.75 M/uL (4.70-6.10)
[2023-09-13 13:01] LABS: Mean Platelet Volume 11.1 fL (9.4-12.4); Nucleated RBC # (auto) 0.05 K/uL (0.00-0.12); Nucleated RBC % (auto) 0.4 %
[2023-09-13 13:04] LABS: Basophils # (auto) 0.16 K/uL (0.00-0.20); Basophils % (auto) 1.1 %; Eosinophils # (auto) 0.02 K/uL (0.00-0.50); Eosinophils % (auto) 0.1 %; Immature Granulocytes # (auto) 0.16 K/uL (0.01-0.20); Immature Granulocytes % (auto) 1.1 %; Lymphocytes # (auto) 0.64 K/uL (1.20-3.40); Lymphocytes % (auto) 4.5 %; Monocytes % (auto) 10.6 %; Neutrophils # (auto) 11.72 K/uL (1.40-6.50); Neutrophils % (auto) 82.6 %; Polychromasia 2+; Target Cells 1+
[2023-09-13] MEDS: SODIUM CHLORIDE 0.9% 500 ML IV ONE (13:18)
--- NOTE | 2023-09-13 13:49 | Electrocardiogram Report ---
Test Reason : Blood Pressure : / mmHG Vent. Rate : 083 BPM Atrial Rate : 083 BPM P-R Int : 138 ms QRS Dur : 088 ms QT Int : 360 ms P-R-T Axes : 033 -15 055 degrees QTc Int : 423 ms Normal sinus rhythm Minimal voltage criteria for LVH, may be normal variant possible Inferior infarct (cited on or before 17-FEB-2017) Abnormal ECG When compared with ECG of 20-JAN-2023 12:32, Premature atrial complexes are no longer Present Confirmed by Cristian Emerson ([id number]) on 09/13/2023 1:49:29 PM Referred By: Confirmed By:Lenin Emerson
--- NOTE | 2023-09-13 14:14 | XRay Report ---
XR chest 1V portable HISTORY: 83 years-old Male Chest pain, nonspecific COMPARISON: Chest CT 07/18/2023 TECHNIQUE: AP view of the chest FINDINGS: Cardiac silhouette is enlarged. Coronary arterial stent. No pneumothorax, pleural effusion or airspac e consolidation. Bones appear grossly intact. IMPRESSION: No acute process. ACT 112: Negative or not required by law. The above report was generated using voice recognition software. It may contain grammatical, syntax o r spelling errors. Electronically signed by: Jonn Chaney M.D. 09/13/2023 2:13 PM
[2023-09-13] MEDS: OPTIRAY 320 125ml IV ONE (16:07)
--- NOTE | 2023-09-13 17:08 | CT Scan Report ---
CHEST CTA for PULMONARY ARTERIES CT DOSE: 737.78 mGy.cm HISTORY: Shortness of breath. TECHNIQUE: Multiaxial CT images of the chest were performed following the intravenous administration of contrast to evaluate the pulmonary arteries. 3D/Maximal intensity projection images were also obta ined. Sagittal and coronal reformations were also reviewed. A dose lowering technique was utilized a dhering to the principles of ALARA. COMPARISON STUDY: Chest CT 07/18/2023. FINDINGS: No evidence for an aortic dissection. The ascending thoracic aorta measures up to 4.2 cm in diameter. This is similar to the prior study. The heart is borderline enlarged. Trace right pleural effusion. No filling defects within the pulmonary arteries to suggest a pulmonary embolus. Severe cor onary artery calcifications are again noted. Left thyroid nodules again noted with the dominant nodul e measuring 2.5 cm. Normal esophagus. Limited views of the upper abdomen demonstrate a normal liver a nd adrenal glands. The spleen appears surgically absent. The partially visualized right renal cyst. M ultiple subcentimeter mediastinal lymph nodes do not meet CT criteria for pathologic involvement. The se remain stable. Mild right axillary/subpectoral lymphadenopathy is similar to the prior study. No a cute fractures within the chest. The central airways are patent. Upper lobe predominant multifocal gr oundglass airspace opacities seen throughout the lungs. This is new compared to the prior study and f avors an atypical pneumonitis. This could be due to a viral process. Stable nodular thickening along the right major fissure. IMPRESSION: 1. No evidence for pulmonary embolus. 2. Upper lobe predominant multifocal groundglass airspace opacities seen throughout the lungs. This i s new compared to the prior study and favors an atypical pneumonitis. This could be due to a viral pr ocess. 3. Trace right pleural effusion. 4. Additional findings as described above. ACT 112: Negative or not required by law. Electronically signed by: Mele Moore M.D. 09/13/2023 5:07 PM
--- NOTE | 2023-09-13 17:58 | History & Physical Report ---
Date of Service September 13, 2023 Assessment & Plan (1) Aspiration pneumonitis: Plan: Admit to med/tele on pulse oximetry Currently stable on room air, no respiratory distress, and nontoxic-appearing Presented to the ED today from the urgent care clinic due to progressive shortness of breath and generalized weakness since his recent bilateral eyelid procedure at [facility] on 09/11/2023 Chest x-ray was read as negative for acute findings, CTA of the chest notes upper lobe predominant multifocal groundglass airspace opacities seen throughout lungs which favors an atypical pneumonitis Findings are consistent with a history that he had a likely aspiration event/hypoxia during his recent admission to [place] He is noted to have a leukocytosis today of 14, this is likely due to his current prednisone taper started prior to his procedure for ITP and thrombocytopenia Status post 1 dose of ceftriaxone in the ED, we will continue with ceftriaxone and also add azithromycin for atypical coverage with his history of asplenia Start incentive spirometry, flutter therapy, as needed albuterol, as needed O2 to keep SpO2 at or above 90% Will obtain sputum culture with Gram stain and COVID-19/influenza/RSV screen for further evaluation Bilateral SCDs for DVT prophylaxis Heart healthy diet AM CBC, CMP, mag, PT/INR (2) Chronic ITP (idiopathic thrombocytopenia): Plan: Waiting for replete platelet count as initial was 2 clumped Continue 10 mg prednisone daily for the next 4 days to complete his taper Patient is not currently on a PPI per his med rec, will start him on 1 now (3) Paroxysmal ventricular tachycardia: Plan: Currently in normal sinus rhythm Continue metoprolol (4) CAD (coronary artery disease): Plan: No recent chest pain No acute EKG changes Continue aspirin and Brilinta Plan The patient was discussed with Dr. Miller at the time of admission History of Present Illness Chief Complaint: SOB Primary Care Provider: Vani Mauro MD Noelle is an 83 year old male with a PMH significant for BPH with LUTS, CAD s/p PCI (Cx and RCA), HTN, ITP S/P splenectomy Who [facility] ED on 09/13/2023 due to progressive shortness of breath since his recent admission to [facility] for a left eye procedure. He was reportedly admitted to [facility] on 09/11/2023 and discharged on 09/12/2023. He underwent a procedure to help reduce the amount of tearing he was experiencing in the left eye, he did have general anesthesia. He was noted to be hypertensive on arrival at 154/93, tachycardic at 108, but otherwise stable. Labs were significant for leukocytosis of 14 with neutrophil predominance of 11 creatinine of 1.52 (baseline is near 1.1), initial high- sensitivity troponin of 26 with 2-hour repeat of 20. Chest x-ray was read as no acute process. CTA of the chest was read as no evidence of PE. Upper lobe predominance multifocal groundglass and airspace opacities seen throughout the lungs. This is new compared to the prior study and favors an atypical pneumonitis. This could be due to a viral process. Trace right pleural effusion. Prior to admission the patient was given an albuterol treatment, 500 mL NSS, and a dose of ceftriaxone. Patient was sitting in bed no acute distress at time of exam with his daughter bedside, history was obtained from both. They explained that the patient actually had procedure on the bilateral eyes which he was intubated and received general anesthesia. I explained that while admitted overnight at [place] he had an episode of hypoxia and was placed on oxygen but was reportedly able to be weaned off prior to discharge. Yesterday he felt his normal self but towards the evening he noticed that he was having the sensation that he needed to take deeper breaths. This a.m. he woke up and felt generally weak and still somewhat short of breath. He denies recent chest pain, productive cough, hemoptysis, nausea/vomiting, abdominal pain, diarrhea, dysuria/hematuria, melena, lower extremity swelling, recent trauma. They explained that he is currently on a prednisone taper which she was started before his procedure due to his platelets falling into the 50s. He was initially started on 80 mg daily and is currently on 10 mg daily with 4 days remaining. He did have his a.m. dose today. He confirms that he is a DNR/DNI and his daughter would make medical decisions for him if he cannot make himself. Please refer to Dr. Miller's attestation for any changes to the treatment plan Allergies Allergy/AdvReac Type Severity Reaction Status Date / Time ciprofloxacin Allergy Unknown "Muscle Verified 09/13/23 10:46 problems, split tendons" sulfamethoxazole Allergy Unknown Hives, Verified 09/13/23 10:46 "interferes with immune system" trimethoprim Allergy Unknown Hives, Verified 09/13/23 10:46 "interferes with immune system" morphine AdvReac Unknown Hallucinati Verified 09/13/23 10:46 ons oxycodone AdvReac Unknown Nausea Verified 09/13/23 10:46 Home Medications Medication Instructions Recorded Confirmed Type acetaminophen 500 mg tablet 650 mg PO Q6H PRN Pain 02/23/19 09/13/23 History (Tylenol Extra Strength) aspirin 81 mg tablet,delayed 81 mg PO QAM #0 tabs 02/25/19 09/13/23 Rx release (Ecotrin Low Strength) metoprolol succinate 50 mg 50 mg PO QAM 04/09/19 09/13/23 History tablet,extended release 24 hr nitroglycerin 0.4 mg sublingual 0.4 mg sublingual UD PRN chest 01/01/20 09/13/23 Rx tablet (Nitrostat) pain #30 tabs amlodipine 5 mg tablet 5 mg PO HS 01/04/23 09/13/23 History losartan 100 mg tablet 100 mg PO QAM 01/04/23 09/13/23 History atorvastatin 80 mg tablet 80 mg PO HS #90 tabs 04/03/23 09/13/23 Rx ticagrelor 60 mg tablet (Brilinta) 60 mg PO BID #180 tabs 09/10/23 09/13/23 Rx bacitracin-polymyxin B eye ointment 1 ea ophthalmic (eye) TID 09/13/23 09/13/23 History prednisone 20 mg tablet 10 mg PO DAILY 09/13/23 09/13/23 History tobramycin 0.3 %-dexamethasone 0.1 1 drp ophthalmic (eye) TID 09/13/23 09/13/23 History % eye drops,suspension Past Med/Surg History Problem List (Updated 09/13/23 @ 18:29 by Erick Reis PA-C) Aspiration pneumonitis History of general anesthesia (Acute) Pneumonia (Acute) Asplenia (Acute) SOB (shortness of breath) (Acute) Wears hearing aid in both ears Phonak Meagano [id number] BTE-Nathalia disp 06/28/21 Acute UTI Chronic cholecystitis with calculus Asplenia (Acute) Elevated lactic acid level (Acute) Sepsis (Acute) Facial flushing Rigors (Acute) Dyslipidemia Sensorineural hearing loss (SNHL) of both ears Kidney stones, calcium oxalate (Acute) Encounter for pre-operative examination BPH NOS w ur obs/LUTS Encounter for pre-operative examination Hypokalemia Elevated bilirubin DVT prophylaxis Chronic ITP (idiopathic thrombocytopenia) (Acute) Unstable gait Aphasia Dysarthria BPH w urinary obs/LUTS Bilateral kidney stones Jaw pain Bilateral arm pain Paroxysmal ventricular tachycardia GERD (gastroesophageal reflux disease) Rheumatoid arthritis Lymphoma Hypertension Sepsis Prostatitis CAD (coronary artery disease) S/P TONIA x 5. Presented with NSTEMI 02/23/19 and had single TONIA to Cx. Returned with chest pain 02/28/12 and found to have thrombosed stent, required additional PCI x 4. Follows with [facility] cardio. Dilated aortic root Echo 10/2022: Mild aortic root dilatation (4.3 cm). Mildly dilated ascending aorta (4.2 cm) Anemia Medical History Chronic anemia History of kidney stones Diverticulitis of colon with perforation 2019, found incidentally on preop CTS prior to splenectomy. Micro-perforation with free air in abdomen. Admitted to hospital for evaluation. [place] non- surgical. Returned to ED a few days after discharge with BRBPR, surgical intervention considered, but pt ultimately transferred to [facility] and had abdominal drainage catheter placed. No recent issues. Left pontine stroke 2019. Per neurology consult, treatment of ITP with IVIG likely contributed. No residual deficits. Coronary stent thrombosis Presented with NSTEMI 02/23/19 and had single TONIA to Cx. Returned with chest pain 02/28/12 and found to have thrombosed stent, required additional PCI x 4. Chronic ITP (idiopathic thrombocytopenia) Controlled, hx IVIG treatments in the past Mitral regurgitation Non-ST elevation (NSTEMI) myocardial infarction 02/2019 > stents x5 total Rheumatoid arthritis "Hx between ages 14-20 years old.. now resolved" per patient BPH (benign prostatic hyperplasia) Lymphoma Dx 2016, "low grade" Non-hodgkins Hypertension Surgical History Hx of transurethral resection of prostate History of cataract surgery History of surgery History of total splenectomy History of cardiac cath History of total hip arthroplasty History of cystoscopy History of lithotripsy History of colonoscopy History of appendectomy History of tooth extraction History of tonsillectomy Family History Father Cancer Other Hypertension Kidney disease No family history of adverse response to anesthesia Social History Smoking Status: Never smoker Tobacco Type: Cigarettes Second Hand Exposure: No; Do You Dip or Chew Tobacco: No; Hx Alcohol Use: Yes Alcohol type: wine Hx Substance Use: No Preferred Language: Greek Communication Ability: Effective Visual Impairment: No 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 Beliefs That Will Affect Care: None marital status: Current Living Situation: Alone Current Living Situation Comment: [place] Feels Safe at Home: Yes Assistive Devices: Glasses and Hearing Aid - Bilateral Physical Exam Physical Exam: Physical Exam: General: In no acute distress, stated age, well-nourished, non-toxic appearing HEENT: Normocephalic, atraumatic, suture sites on the lateral aspect of the BL eyelids appear intact and without signs of infection, no scleral icterus, pupils around round, symmetrical, and reactive to light, moist mucus membranes, trachea midline, no thyromegaly Chest/Pulm: No respiratory distress, symmetrical chest expansion, scattered expiratory wheezing throughout Cardiac: RRR, 2/6 systolic murmur noted Abdomen: Negative for ascites and bruising, normoactive bowel sounds, soft, non-tender to palpation throughout Musculoskeletal: Symmetrical and without signs of acute trauma, upper and lower extremities with full ROM, no atrophy, spasticity, or flaccidity Extremities: Radial, dorsalis pedis, and posterior tibial pulses are intact and symmetrical, no edema noted in the BL LE's Skin: Warm, dry, no rashes , lesions, or scars noted Neuro: Alert and oriented to person, place, month, year, and president, no focal defects,no tremors noted Psych: No acute distress, calm and cooperative during the exam Results & Data Results & Data Vital Signs (Past 12 Hours) Vital Signs Temp Pulse Pulse Resp BP BP Pulse Ox 09/13/23 16:30 86 09/13/23 16:26 87 22 171/89 H 94 09/13/23 14:07 86 22 174/92 H 93 09/13/23 12:27 82 09/13/23 12:16 95 07/11/24 12:16 95 09/13/23 12:08 36.4 C L 88 16 162/88 H 94 O2 Del Method O2 Flow Rate 09/13/23 16:30 09/13/23 16:26 Room Air 09/13/23 14:07 Room Air 09/13/23 12:27 09/13/23 12:16 Room Air 09/13/23 12:16 Room Air 0 09/13/23 12:08 Room Air Laboratory Results Abnormal lab results 09/13/23 Range/Units 12:20 WBC 14.20 H (4.8-10.8) K/ul Hgb 13.4 L (14.0-18.0) g/dl Hct 40.8 L (42.0-52.0) % RDW Std Deviation 63.2 H (36.4-46.3) fL RDW Coeff of Katarina 20.7 H (11.5-14.5) % Neut # (Auto) 11.72 H (1.40-6.50) K/uL Lymph # (Auto) 0.64 L (1.20-3.40) K/uL Ocean # (Auto) 1.50 H (0.11-0.59) K/uL PT 12.1 H (9.0-12.0) Seconds BUN 26 H (6-23) mg/dl Creatinine 1.52 H (0.6-1.4) mg/dl Glucose 111 H (70-99(Fasting)) mg/dl Calcium 10.9 H (8.6-10.3) mg/dl Troponin I High Sens 26.2 H (0-20) pg/ml Diagnostic Findings Abnormal lab results 09/13/23 Range/Units 12:20 WBC 14.20 H (4.8-10.8) K/ul Hgb 13.4 L (14.0-18.0) g/dl Hct 40.8 L (42.0-52.0) % RDW Std Deviation 63.2 H (36.4-46.3) fL RDW Coeff of Katarina 20.7 H (11.5-14.5) % Neut # (Auto) 11.72 H (1.40-6.50) K/uL Lymph # (Auto) 0.64 L (1.20-3.40) K/uL Ocean # (Auto) 1.50 H (0.11-0.59) K/uL PT 12.1 H (9.0-12.0) Seconds BUN 26 H (6-23) mg/dl Creatinine 1.52 H (0.6-1.4) mg/dl Glucose 111 H (70-99(Fasting)) mg/dl Calcium 10.9 H (8.6-10.3) mg/dl Troponin I High Sens 26.2 H (0-20) pg/ml ECG Additional Comments: Normal sinus rhythm Minimal voltage criteria for LVH, may be normal variant possible Inferior infarct (cited on or before 17-FEB-2017) Abnormal ECG When compared with ECG of 20-JAN-2023 12:32, Premature atrial complexes are no longer Present Confirmed by Cristian Emerson ([id number]) on 09/13/2023 1:49:29 PM Code Status & VTE Plan Code Status DNR/DNI VTE Prophylaxis Plan VTE Prophylaxis will be ordered: Yes Supervising Physician Co-Signing Physician Notes I personally saw and examined the patient. I verified all omalley points and agree with Erick Reis PA-C with the following exceptions and/or additions: 83 year old male who presents to the ER with shortness of breath. Reportedly hypoxic the first night he had eye surgery on September 10. Much more short of breath after discharge last night. No chest pain. No cough O/E HS RRR, no murmurs, Chest CTAB, Abdo SNT A/P Aspiration pneumonia - Ceftriaxone + azithromycin (given atypical appearance). Monitor overnight for worsening hypoxia/symptoms given asplenia. PG Care Time/CCT Total # of Minutes Spent Total Time Spent with Patient: Total time spent is greater than 50% in coordination of care (as documented) at patient's floor/unit and/or counseling patient: C[place] [address] INT INP/OBS CARE 2/55MIN Patient Type Established Medical Decision Making High Complexity Diagnoses Aspiration pneumonitis J69.0 Chronic ITP (idiopathic thrombocytopenia) D69.3 Paroxysmal ventricular tachycardia I47.2 CAD (coronary artery disease) I25.119 Associated angina: with unspecified angina Coronary Disease-Associated Artery/Lesion type: unspecified vessel or lesion type [place] vs. transplanted heart: [place] heart (4) CAD (coronary artery disease) Associated angina: with unspecified angina Coronary Disease-Associated Artery/Lesion type: unspecified vessel or lesion type [place] vs. transplanted heart: [place] heart Qualified Code(s): I25.119 - Atherosclerotic heart disease of [place] coronary artery with unspecified angina pectoris
[2023-09-13] MEDS: cefTRIAXone SODIUM 2,000 MG/50 ML BAG IV STA (18:19)
[2023-09-13] MEDS: ALBUT/IPRATROP 3MG/0.5MG NEB 3 ML VIAL NEB STA (18:20)
[2023-09-13] MEDS: AZITHROMYCIN 500 MG in DEXTROSE 5% 250 ML IV STA (18:53)
[2023-09-13] MEDS: PANTOprazole 40 MG TAB PO STA (18:53)
[2023-09-13 20:07] LABS: Influenza A virus by PCR Negative (Neg); Influenza B virus by PCR Negative (Neg); RSV by PCR Negative (Neg); SARS CoV2 RNA(COVID-19) Ceph NEGATIVE (Negative)
[2023-09-13] MEDS ORDERED: ALBUTEROL 0.5% NEB SOLN 2.5 MG/0.5 ML VIAL NEB PRN (21:00)
[2023-09-13] MEDS: amLODIPine BESYLATE 5 MG TAB PO SCH (21:18)
[2023-09-13] MEDS: ATORVASTATIN 40 MG TAB PO SCH (21:18)
[2023-09-14 07:38] LABS: Albumin Globulin Ratio 1.1 (0.9-2); Albumin Level 3.3 gm/dl (3.4-5.0); BUN Creatinine Ratio 18.2 (10-20); Bilirubin,Total 0.9 mg/dl (0.2-1.0); Creatinine Clr Calc Pharmacy 37.6 ml/min; Est GFR (African American) 51.8 ml/min; Est GFR (Non-African American) 44.7 ml/min; Globulin 2.9 gm/dl (2.5-4.0); Total Protein 6.2 gm/dl (6.0-8.3)
[2023-09-14 07:45] LABS: INR 1.1 (0.9-1.1); Prothrombin Time 12.1 Seconds (9.0-12.0)
[2023-09-14] MEDS: ASPIRIN 81 MG ECTAB PO SCH (07:53)
[2023-09-14] MEDS: METOPROLOL SUCC 50MG EXT REL TAB PO SCH (07:54)
[2023-09-14] MEDS: BACITRACIN/POLYMYX B OPH OINT 3.5 GM TUBE OP SCH (07:54)
[2023-09-14] MEDS: LOSARTAN POTASSIUM 50 MG TAB PO SCH (07:54)
[2023-09-14] MEDS: PANTOprazole 40 MG TAB PO SCH (07:55)
[2023-09-14] MEDS: TOBRAMYCIN/DEXAMETHASONE OPH SUSP 2.5 ML BTL OP SCH (07:55)
[2023-09-14 08:22] LABS: Hematocrit (blood only) 35.1 % (42.0-52.0); Hemoglobin 11.9 g/dl (14.0-18.0); Mean Corpuscular Hemoglobin 28.4 pg (25.0-34.0); Mean Corpuscular Hgb Conc 33.9 g/dL (32.0-36.0); Mean Corpuscular Volume 83.8 fL (80.0-100.0); RDW Coefficient of Variation 20.4 % (11.5-14.5); RDW Standard Deviation 59.9 fL (36.4-46.3); Red Blood Count 4.19 M/uL (4.70-6.10); White Blood Count 14.25 K/ul (4.8-10.8)
[2023-09-14 08:23] LABS: Nucleated RBC # (auto) 0.03 K/uL (0.00-0.12); Nucleated RBC % (auto) 0.2 %
[2023-09-14 08:24] LABS: Schistocytes Occasional
[2023-09-14 08:29] LABS: Acanthocytes 2+; Anisocytosis Present; Basophils # (auto) 0.15 K/uL (0.00-0.20); Basophils % (auto) 1.1 %; Dohle Bodies 1+; Echinocytes 1+; Eosinophils # (auto) 4.16 K/uL (0.00-0.50); Eosinophils % (auto) 29.2 %; Immature Granulocytes # (auto) 0.47 K/uL (0.01-0.20); Immature Granulocytes % (auto) 3.3 %; Lymphocytes % (auto) 6.3 %; Monocytes # (auto) 1.84 K/uL (0.11-0.59); Monocytes % (auto) 12.9 %; Neutrophils # (auto) 6.73 K/uL (1.40-6.50); Neutrophils % (auto) 47.2 %; Poikilocytosis Present; Polychromasia 1+; Rouleaux 1+; Spherocytes 2+
[2023-09-14] MEDS ORDERED: NON-FORMULARY PATIENT'S OWN MED SCH (09:00)
--- NOTE | 2023-09-14 11:34 | Discharge Summary ---
Date of Service September 14, 2023 Admission HPI Per Admitting Provider Noelle is an 83 year old male with a PMH significant for BPH with LUTS, CAD s/p PCI (Cx and RCA), HTN, ITP S/P splenectomy Who presented to the [facility] ED on 09/13/2023 due to progressive shortness of breath since his recent admission to [facility] for a left eye procedure. He was reportedly admitted to [facility] on 09/11/2023 and discharged on 09/12/2023. He underwent a procedure to help reduce the amount of tearing he was experiencing in the left eye, he did have general anesthesia. He was noted to be hypertensive on arrival at 154/93, tachycardic at 108, but otherwise stable. Labs were significant for leukocytosis of 14 with neutrophil predominance of 11 creatinine of 1.52 (baseline is near 1.1), initial high- sensitivity troponin of 26 with 2-hour repeat of 20. Chest x-ray was read as no acute process. CTA of the chest was read as no evidence of PE. Upper lobe predominance multifocal groundglass and airspace opacities seen throughout the lungs. This is new compared to the prior study and favors an atypical pneumonitis. This could be due to a viral process. Trace right pleural effusion. Prior to admission the patient was given an albuterol treatment, 500 mL NSS, and a dose of ceftriaxone. Patient was sitting in bed no acute distress at time of exam with his daughter bedside, history was obtained from both. They explained that the patient actually had procedure on the bilateral eyes which he was intubated and received general anesthesia. I explained that while admitted overnight at [place] he had an episode of hypoxia and was placed on oxygen but was reportedly able to be weaned off prior to discharge. Yesterday he felt his normal self but towards the evening he noticed that he was having the sensation that he needed to take deeper breaths. This a.m. he woke up and felt generally weak and still somewhat short of breath. He denies recent chest pain, productive cough, hemoptysis, nausea/vomiting, abdominal pain, diarrhea, dysuria/hematuria, melena, lower extremity swelling, recent trauma. They explained that he is currently on a prednisone taper which she was started before his procedure due to his platelets falling into the 50s. He was initially started on 80 mg daily and is currently on 10 mg daily with 4 days remaining. He did have his a.m. dose today. He confirms that he is a DNR/DNI and his daughter would make med ical decisions for him if he cannot make himself. Principal Diagnosis Pneumonitis Discharge Exam The patient is awake, alert and oriented 3, well developed and well nourished, normocephalic and atraumatic, lying in bed and in no acute distress. HEENT--PERRL, EOMI, mucous membranes and oropharynx mildly dry Neck--supple. No JVD. No bruits. Thyroid normal, trachea midline, no adenopathy. Heart--normal S1 and S2. No murmurs, rubs or gallops. Lungs--clear bilaterally, no respiratory distress, no accessory muscle use. Abdomen--normal bowel sounds and soft. Extremities--no cyanosis or clubbing. No edema. Dermatologic--normal skin turgor, normal color, no abnormal lymph nodes, no rash. Neurologic--cranial nerves II through XII grossly intact. Rheumatologic--normal range of motion. Psychiatric--normal affect. Discharge Data Allergies Allergy/AdvReac Type Severity Reaction Status Date / Time ciprofloxacin Allergy Unknown "Muscle Verified 09/13/23 10:46 problems, split tendons" sulfamethoxazole Allergy Unknown Hives, Verified 09/13/23 10:46 "interferes with immune system" trimethoprim Allergy Unknown Hives, Verified 09/13/23 10:46 "interferes with immune system" morphine AdvReac Unknown Hallucinati Verified 09/13/23 10:46 ons oxycodone AdvReac Unknown Nausea Verified 09/13/23 10:46 Consultations 09/13/23 17:31 ED Decision to Admit Stat Ordered Studies 09/13/23 15:23 CT angio chest PE protocol Stat Hospital Course (1) Aspiration pneumonitis: Patient feels a whole lot better Currently stable on room air, no respiratory distress, and nontoxic-appearing Presented to the ED today from the urgent care clinic due to progressive shortness of breath and generalized weakness since his recent bilateral eyelid procedure at [facility] on 09/11/2023 Chest x-ray was read as negative for acute findings, CTA of the chest notes upper lobe predominant multifocal groundglass airspace opacities seen throughout lungs which favors an atypical pneumonitis Findings are consistent with a history that he had a likely aspiration event/hypoxia during his recent admission to [place] He is noted to have a leukocytosis today of 14, this is likely due to his current prednisone taper started prior to his procedure for ITP and thrombocytopenia Status post 1 dose of ceftriaxone in the ED, we will continue with ceftriaxone and also add azithromycin for atypical coverage with his history of asplenia Start incentive spirometry, flutter therapy, as needed albuterol, as needed O2 to keep SpO2 at or above 90% Says he wants to be discharged, he is back to his baseline. (2) Chronic ITP (idiopathic thrombocytopenia): Waiting for replete platelet count as initial was 2 clumped Continue 10 mg prednisone daily for the next 4 days to complete his taper Patient is not currently on a PPI per his med rec, will start him on 1 now (3) Paroxysmal ventricular tachycardia: Currently in normal sinus rhythm Continue metoprolol (4) CAD (coronary artery disease): No recent chest pain No acute EKG changes Continue aspirin and Brilinta Plan Discharge home. Follow-up with regular PCP Total Time Total Time Spent Total Time Spent (In Minutes): 35 Discharge Plan Discharge Items Patient Disposition: Home - Self-Care Reason For Visit: SOB, ASPIRATION PNEUMOMITIS Discharge Diagnosis: pneumonitis Condition on Discharge: Fair Activity: Resume your previous activity Non-emergency contact: Primary Care Provider Call non-emergency contact if: you have any medication questions Follow-up/Referrals: Vani Mauro MD [Primary Care Provider] - 09/17/23 1:25 pm (Daryl Woodall ) Diet: Regular Addtl Attending Provider Instructions: Please make appointment follow-up with your regular PCP Pending Studies at Discharge: No Stand-Alone Forms: My [employer], Smoking Cessation Medications and DC Order Prescriptions: Continued nitroglycerin [Nitrostat] 0.4 mg tablet, sublingual 0.4 mg sublingual UD PRN (Reason: chest pain) Qty: 30 0RF Patient Comments: NEVER USED IT atorvastatin 80 mg tablet 80 mg PO HS Qty: 90 3RF Brilinta 60 mg tablet 60 mg PO BID Qty: 180 3RF metoprolol succinate 50 mg tablet extended release 24 hr 50 mg PO QAM acetaminophen [Tylenol Extra Strength] 500 mg Tablet 650 mg PO Q6H PRN (Reason: Pain) Patient Comments: pt was just discharged at 1200 after having a stent put in, has only taken wh at he received while admitted (02/25/19) aspirin [Ecotrin Low Strength] 81 mg Tablet,Delayed Release (Dr/Ec) 81 mg PO QAM Qty: 0 0RF Patient Comments: pt was just discharged at 1200 after having a stent put in, has only taken what he received while admitted (02/25/19) amlodipine 5 mg tablet 5 mg PO HS losartan 100 mg tablet 100 mg PO QAM prednisone 20 mg Tablet 10 mg PO DAILY Rx Instructions: to take x4 more days tobramycin-dexamethasone 0.3-0.1 % Drops,Suspension 1 drp ophthalmic (eye) TID bacitracin-polymyxin B Ointment 1 ea OPHTHALMIC (EYE) TID Discharge Orders: Discharge Order (Routine); Ordered 09/14/23 Ordered By: Edu Pedersen Admission Data Admit Date/Time: 09/13/23 18:05 Attending Provider: Edu Pedersen Admit Provider: Coy Miller Primary Care Provider: Vani Mauro Other Providers: Coy Miller Other Interventions: Discharge Summary Assessment (RN) Last Done: 09/14/23 10:53 Discharge Summary Assessment (RN) Last Done: 09/14/23 10:43 Coding Level of Care Code 53995 INP/OBS DISCH >30 MIN Diagnoses Aspiration pneumonitis J69.0 Chronic ITP (idiopathic thrombocytopenia) D69.3 Paroxysmal ventricular tachycardia I47.2 CAD (coronary artery disease) I25.119 Associated angina: with unspecified angina Coronary Disease-Associated Artery/Lesion type: unspecified vessel or lesion type [place] vs. transplanted heart: [place] heart Time Spent (min) 35
[2023-09-14] MEDS ORDERED: cefTRIAXone SODIUM 2,000 MG/50 ML BAG IV SCH (18:00)
[2023-09-14] MEDS ORDERED: AZITHROMYCIN 500 MG in DEXTROSE 5% 250 ML IV SCH (19:00)
== END 2023-09-14 10:53 | disposition home or self-care (01) | DRG 178 ==
LOC: ED 12:06 → EDINP 18:05 → SUATTDRO 18:05 → 2N 20:25

== ENCOUNTER 2023-09-29 18:48 | Inpatient (IN) ==
--- NOTE | 2023-09-29 19:38 | Emergency Department Note ---
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 He has been fatigued. No cough. He was hospitalized with a similar process 2 weeks ago and was overnight and sent home the next day he had been intubated for eye surgery prior to that I thought he could have a pulmonary infection initially according to the granddaughter. He had no urinary symptoms. No fall or trauma. Home Medications Medication Instructions Recorded Confirmed Type acetaminophen 500 mg tablet 1,000 mg PO Q6H PRN Pain 02/23/19 09/29/23 History (Tylenol Extra Strength) aspirin 81 mg tablet,delayed 81 mg PO QAM #0 tabs 02/25/19 09/29/23 Rx release (Ecotrin Low Strength) metoprolol succinate 50 mg 50 mg PO QAM 04/09/19 09/29/23 History tablet,extended release 24 hr nitroglycerin 0.4 mg sublingual 0.4 mg sublingual UD PRN chest 01/01/20 09/29/23 Rx tablet (Nitrostat) pain #30 tabs losartan 100 mg tablet 100 mg PO QAM 01/04/23 09/29/23 History atorvastatin 80 mg tablet 80 mg PO HS #90 tabs 04/03/23 09/29/23 Rx ticagrelor 60 mg tablet (Brilinta) 60 mg PO BID #180 tabs 09/10/23 09/29/23 Rx tobramycin 0.3 %-dexamethasone 0.1 1 drp ophthalmic (eye) TID 09/13/23 09/29/23 History % eye drops,suspension amlodipine 5 mg tablet 5 mg PO HS #90 tabs 09/25/23 09/29/23 Rx vitamin B complex 1 tab PO DAILY 09/29/23 09/29/23 History Allergies Allergy/AdvReac Type Severity Reaction Status Date / Time ciprofloxacin Allergy Unknown "Muscle Verified 09/29/23 19:26 problems, split tendons" sulfamethoxazole Allergy Unknown Hives, Verified 09/29/23 19:26 "interferes with immune system" trimethoprim Allergy Unknown Hives, Verified 09/29/23 19:26 "interferes with immune system" morphine AdvReac Unknown Hallucinati Verified 09/29/23 19:26 ons oxycodone AdvReac Unknown Nausea Verified 09/29/23 19:26 Past Med/Surg History Problem List (Updated 09/30/23 @ 01:11 by Nik Peter MD) Sinus tachycardia (Acute) Decreased hearing of right ear Aspiration pneumonitis History of general anesthesia (Acute) Pneumonia (Acute) Asplenia (Acute) SOB (shortness of breath) (Acute) Wears hearing aid in both ears Phonak Audeo [id number] BTE-Nathalia disp 06/28/21 Acute UTI Chronic cholecystitis with calculus Asplenia (Acute) Elevated lactic acid level (Acute) Sepsis (Acute) Facial flushing Rigors (Acute) Dyslipidemia Sensorineural hearing loss (SNHL) of both ears Kidney stones, calcium oxalate (Acute) Encounter for pre-operative examination BPH NOS w ur obs/LUTS Encounter for pre-operative examination Hypokalemia Elevated bilirubin DVT prophylaxis Chronic ITP (idiopathic thrombocytopenia) (Acute) Unstable gait Aphasia Dysarthria BPH w urinary obs/LUTS Bilateral kidney stones Jaw pain Bilateral arm pain Paroxysmal ventricular tachycardia GERD (gastroesophageal reflux disease) Rheumatoid arthritis Lymphoma Hypertension Sepsis Prostatitis CAD (coronary artery disease) S/P TONIA x 5. Presented with NSTEMI 02/23/19 and had single TONIA to Cx. Returned with chest pain 02/28/12 and found to have thrombosed stent, required additional PCI x 4. Follows with [facility] [place] cardio. Dilated aortic root Echo 10/2022: Mild aortic root dilatation (4.3 cm). Mildly dilated ascending aorta (4.2 cm) Anemia Medical History Chronic anemia History of kidney stones Diverticulitis of colon with perforation 2019, found incidentally on preop CTS prior to splenectomy. Micro-perforation with free air in abdomen. Admitted to hospital for evaluation. [place] non- surgical. Returned to ED a few days after discharge with BRBPR, surgical intervention considered, but pt ultimately transferred to [facility] and had abdominal drainage catheter placed. No recent issues. Left pontine stroke 2019. Per neurology consult, treatment of ITP with IVIG likely contributed. No residual deficits. Coronary stent thrombosis Presented with NSTEMI 02/23/19 and had single TONIA to Cx. Returned with chest pain 02/28/12 and found to have thrombosed stent, required additional PCI x 4. Chronic ITP (idiopathic thrombocytopenia) Controlled, hx IVIG treatments in the past Mitral regurgitation Non-ST elevation (NSTEMI) myocardial infarction 02/2019 > stents x5 total Rheumatoid arthritis "Hx between ages 14-20 years old.. 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, [facility] [place] History of cardiac cath 02/2019 > stents x5 total History of total hip arthroplasty R/L History of cystoscopy + stone extraction History of lithotripsy History of colonoscopy History of appendectomy History of tooth extraction History of tonsillectomy Family History Father Cancer Other Hypertension Kidney disease No family history of adverse response to anesthesia Social History Smoking Status: Never smoker Tobacco Type: Cigarettes Second Hand Exposure: No; Do You Dip or Chew Tobacco: No; Hx Alcohol Use: Yes Alcohol type: wine Hx Substance Use: No Preferred Language: Kinyarwanda Communication Ability: Effective Visual Impairment: No Limitations Mine Surveyor Required: No Beliefs That Will Affect Care: None marital status: Current Living Situation: Alone Current Living Situation Comment: [place] Feels Safe at Home: Yes Safety Concerns: Feels Safe At This Time Assistive Devices: Glasses and Hearing Aid - Bilateral Review of Systems A total of 10 systems reviewed and were otherwise negative Physical Exam Vital Signs Vital Signs - 24 hr 09/29/23 18:51 09/29/23 19:26 09/29/23 19:26 Temperature 36.9 C Temperature Source Oral Pulse Rate 130 H 127 H Pulse Rate from SpO2 Sensor 130 H Respiratory Rate 19 25 H Respiratory Effort / Characteristics Non-Labored Spontaneous Respiratory Depth Normal Blood Pressure 118/74 131/72 Blood Pressure Mean 88 89 Pulse Oximetry 94 93 Oxygen Delivery Method Room Air Sepsis Recent Fever Within 48 Hours Yes Sepsis New/Unexplained Change in Mental Status No Sepsis Action Taken by Nursing No Action Required 09/29/23 19:26 09/29/23 19:26 09/29/23 19:27 Temperature Temperature Source Pulse Rate 124 H Pulse Rate from SpO2 Sensor Respiratory Rate Respiratory Effort / Characteristics Respiratory Depth Blood Pressure 131/72 131/72 Blood Pressure Mean 89 89 Pulse Oximetry Oxygen Delivery Method Sepsis Recent Fever Within 48 Hours Sepsis New/Unexplained Change in Mental Status Sepsis Action Taken by Nursing 09/29/23 19:30 09/29/23 19:47 09/29/23 20:17 Temperature Temperature Source Pulse Rate 122 H 114 H Pulse Rate from SpO2 Sensor 120 H 113 H Respiratory Rate 41 H 32 H Respiratory Effort / Characteristics Respiratory Depth Blood Pressure 136/88 Blood Pressure Mean 109 Pulse Oximetry 92 93 Oxygen Delivery Method Sepsis Recent Fever Within 48 Hours Sepsis New/Unexplained Change in Mental Status Sepsis Action Taken by Nursing 09/29/23 20:30 09/29/23 20:30 Temperature Temperature Source Pulse Rate 111 H Pulse Rate from SpO2 Sensor 116 H Respiratory Rate 19 Respiratory Effort / Characteristics Respiratory Depth Blood Pressure 119/77 Blood Pressure Mean 100 Pulse Oximetry 94 Oxygen Delivery Method Sepsis Recent Fever Within 48 Hours Sepsis New/Unexplained Change in Mental Status Sepsis Action Taken by Nursing General: Well developed well nourished older male who is talking on the telephone and appears in no acute distress, breathing comfortably on room air. Normal speech HEENT: Normal cephalic atraumatic. Pupils are equal round and reactive to light. Extraocular movements are intact. Oropharynx is pink with moist mucous membranes. No swelling of the mouth lips or tongue. Neck: Supple with a midline trachea. No meningeal signs or stiffness, no JVD or bruits. No Stridor. Chest: Clear to auscultation bilaterally. No wheezes or rhonchi. No increased work of breathing. Heart: Tachycardic but regular rhythm without murmurs or gallops. Abdomen: Soft nontender, nondistended without rebound guarding or rigidity. Extremities: No cyanosis clubbing or edema. No calf tenderness or assymetry Spine/Back. Non tender to palpation. No CVA tenderness Skin: Good turgor without rashes. Neurologic exam: Cranial nerves two through 12 are intact. Motor and sensation are intact and symmetrical throughout. Course Administered Medications Atorvastatin Calcium (Atorvastatin 40 Mg Tab) 80 mg PO HS [facility] Stop: 10/29/23 23:27 Last Admin: 09/30/23 00:26 Dose: 80 mg Documented By: AUTUMN Miscellaneous (Brilinta~Order Awaiting Action) 1 each N/A QS ERICK Stop: 10/29/23 23:44 Last Admin: 09/29/23 23:38 Dose: Not Given Documented By: AUTUMN Tobramycin/Dexamethasone (Tobramycin/Dexamethasone Oph Susp 2.5 Ml Btl) 1 drops OP TID [facility] Stop: 10/29/23 23:27 Last Admin: 09/30/23 00:26 Dose: 1 drops Documented By: AUTUMN Discontinued Medications Sodium Chloride (Nss) 250 mls @ 999 mls/hr IV .Q16M ONE Stop: 09/29/23 19:46 Last Admin: 09/29/23 20:31 Dose: Not Given Documented By: MARY Ceftriaxone Sodium (Rocephin) 2,000 mg in 50 mls @ 100 mls/hr IV NOW STA Stop: 09/29/23 20:02 Last Infusion: 09/29/23 21:40 Dose: Infused Documented By: Admin: 09/29/23 20:28 Dose: 100 mls/hr Documented By: MARY Sodium Chloride (Nss) 1,000 mls @ 999 mls/hr IV .Q1H1M ONE Stop: 09/29/23 20:42 Last Infusion: 09/29/23 21:40 Dose: Infused Documented By: Admin: 09/29/23 20:29 Dose: 999 mls/hr Documented By: MARY Lactated Ringer's (Lr) 1,000 mls @ 999 mls/hr IV .Q1H1M ONE Stop: 09/29/23 21:34 Last Infusion: 09/29/23 22:58 Dose: Infused Documented By: Admin: 09/29/23 21:40 Dose: 999 mls/hr Documented By: MARY Piperacillin Sod/Tazobactam Sod (Zosyn) 4.5 gm in 100 mls @ 200 mls/hr IV NOW ONE Stop: 09/29/23 21:23 Last Infusion: 09/29/23 22:40 Dose: Infused Documented By: Admin: 09/29/23 21:40 Dose: 200 mls/hr Documented By: MARY Medical Decision Making Differential Diagnosis Sepsis, viral illness, COVID, pulmonary disease/pneumonia, cardiac disease, electrolyte or metabolic abnormality, dehydration, UTI, Medical Records Attestation: I reviewed the patient's medical records. Home Medications Current Medication List: was personally reviewed by me Laboratory Data Attestation: I reviewed the patient's lab results. 09/29/23 19:04 09/29/23 19:04 Lab Results 09/29/23 09/29/23 09/29/23 Range/Units 18:55 19:04 19:55 WBC 6.64 (4.8-10.8) K/ul RBC 4.37 L (4.70-6.10) M/uL Hgb 12.4 L (14.0-18.0) g/dl Hct 37.7 L (42.0-52.0) % MCV 86.3 (80.0-100.0) fL MCH 28.4 (25.0-34.0) pg MCHC 32.9 (32.0-36.0) g/dL RDW Std Deviation 63.0 H (36.4-46.3) fL RDW Coeff of Katarina 20.2 H (11.5-14.5) % Plt Count (130-400) K/uL MPV (9.4-12.4) fL Neutrophils % (Manual) 77 % Lymphocytes % (Manual) 17 % Monocytes % (Manual) 1 % Eosinophils % (Manual) 2 % Basophils % (Manual) 2 % Metamyelocytes % (Man) 1 % Neutrophils # (Manual) 5.11 (1.40-6.50) K/uL Total Absolute Neuts 5.11 (1.4-6.5) K/uL Lymphocytes # (Manual) 1.13 L (1.2-3.4) K/uL Total Abs Lymphocytes 1.13 L (1.2-3.4) K/uL Monocytes # (Manual) 0.07 L (0.11-0.59) K/uL Eosinophils # (Manual) 0.13 (0-0.50) K/uL Basophils # (Manual) 0.13 (0-0.2) K/uL Metamyelocytes # (Man) 0.07 H (0-0) K/uL Plt Count ,Citrate 318 (130-400) K/uL Anisocytosis Present Yi-Dunn Bodies 1+ Acanthocytes (Spur) 1+ PT 12.4 H (9.0-12.0) Seconds INR 1.2 H (0.9-1.1) APTT 22 (21-31) Seconds PTT Ratio 0.8 Sodium 139 (136-145) mmol/L Potassium 4.0 (3.5-5.1) mmol/L Chloride 109 H (98-107) mmol/L Carbon Dioxide 20 L (21-32) mmol/L Anion Gap 10 (3-11) BUN 24 H (6-23) mg/dl Creatinine 1.22 (0.6-1.4) mg/dl Est Cr Clr Drug Dosing 44.3 ml/min Est GFR ( Amer) 62.7 ml/min Est GFR (Non-Af Amer) 54.1 ml/min BUN/Creatinine Ratio 19.7 (10-20) Glucose 88 (70-99(Fasting)) mg/dl Lactate 1.4 (0.4-2.0) mmol/L Calcium 10.5 H (8.6-10.3) mg/dl Total Bilirubin 1.1 H (0.2-1.0) mg/dl AST 26 (13-39) U/L ALT 38 (7-52) U/L Alkaline Phosphatase 63 (34-104) U/L Total Protein 6.5 (6.0-8.3) gm/dl Albumin 3.8 (3.4-5.0) gm/dl Globulin 2.7 (2.5-4.0) gm/dl Albumin/Globulin Ratio 1.4 (0.9-2) Procalcitonin 0.10 (0-0.5) ng/ml Random Cortisol 33.21 mcg/dl Adenovirus (PCR) Not Detected (NotDetected) Anaplasma Smear See Comment Babesia Smear See Comment B. pertussis DNA (PCR) Not Detected (NotDetected) B.parapertussis DNA PCR Not Detected (NotDetected) Lyme Disease Screen Negative (Negative) C. pneumoniae DNA (PCR) Not Detected (NotDetected) Coronavirus OC43 (PCR) Not Detected (NotDetected) Coronavirus HKU1 (PCR) Not Detected (NotDetected) Coronavirus 229E (PCR) Not Detected (NotDetected) SARS-CoV-2 (PCR) Not Detected (NotDetected) Coronavirus NL63 (PCR) Not Detected (NotDetected) Human Metapneumovir PCR Not Detected (NotDetected) Influenza Type A (PCR) Not Detected (NotDetected) Influenza Type B (PCR) Not Detected (NotDetected) M. pneumoniae (PCR) Not Detected (NotDetected) Parainfluenza 1 (PCR) Not Detected (NotDetected) Parainfluenza 2 (PCR) Not Detected (NotDetected) Parainfluenza 3 (PCR) Not Detected (NotDetected) Parainfluenza 4 (PCR) Not Detected (NotDetected) RSV (PCR) Not Detected (NotDetected) Entero/Rhino (PCR) Not Detected (NotDetected) Imaging Data My Impression: Chest x-rayno acute infiltrate, failure, pneumothorax seen as per my independent interpretation ECG Data Attestation: I personally reviewed and interpreted this ECG as follows: Indication: + weakness Rate (beats per minute): 126 Rhythm: + sinus tachycardia ECG Intervals/blocks: + Normal QRS and + Normal QT ECG [place]: + Normal ECG ST segments: + Normal ST segments ECG Findings: + Q waves; no PACs or no PVCs Comparison ECG Date: from (09/13/2023) Change: no significant change MDM Narrative This patient comes in after having shaking and chills and a fever. He was admitted about 2 weeks ago for similar. He does have a complex medical history including being asplenic secondary to ITP in light of this I did a full sepsis type workup, he was given IV fluid bolus and initially gave him Rocephin 2 g IV given the fact that he is asplenic while we sorted this out. Chest x-ray ,bio fire and multiple blood testing was obtained as well as urinalysis and culture he was reassessed frequently. His workup was reassuring. He is tachycardic on his EKG but is nothing to suggest significant arrhythmia or ischemia. His inflammatory markers are unremarkable. He has no significant electrolyte or metabolic abnormalities. Chest x-ray is no definite pneumonia. His bio fire was negative. I do think he needs to be admitted/observed for further inpatient treatment and evaluations given his febrile illness confirmed concern for sepsis in the setting of a splenic patient. Continuous cardiac monitoring: Orders placed in EMR for continuous director of public health: Pulm evaluation was noted to be in sinus tachycardia rate of 120 Impression & Plan Sepsis, Asplenia, Sinus tachycardia, Rigors Discharge Plan Visit Data Chief Complaint: Illness Stated Complaint: SKAKING, SWEAT, FEVER ED Provider: Nik Peter Discharge Problem: Sepsis, Asplenia, Sinus tachycardia, Rigors Discharge Instructions Interventions: ED Discharge Assessment Last Done: 09/29/23 23:29 Discharge Problem: Sepsis Qualifiers: Sepsis type: sepsis due to unspecified organism Sepsis acute organ dysfunction status: unspecified Qualified Code(s): A41.9 - Sepsis, unspecified organism
[2023-09-29 19:41] LABS: INR 1.2 (0.9-1.1); Partial Thromboplastin Ratio 0.8; Partial Thromboplastin Time 22 Seconds (21-31); Prothrombin Time 12.4 Seconds (9.0-12.0)
[2023-09-29 19:46] LABS: Hematocrit (blood only) 37.7 % (42.0-52.0); Hemoglobin 12.4 g/dl (14.0-18.0); Mean Corpuscular Hemoglobin 28.4 pg (25.0-34.0); Mean Corpuscular Hgb Conc 32.9 g/dL (32.0-36.0); Mean Corpuscular Volume 86.3 fL (80.0-100.0); RDW Coefficient of Variation 20.2 % (11.5-14.5); Red Blood Count 4.37 M/uL (4.70-6.10); White Blood Count 6.64 K/ul (4.8-10.8)
[2023-09-29 19:47] LABS: ALC (manual) 1.13 K/uL (1.2-3.4); ANC (manual) 5.11 K/uL (1.4-6.5); Acanthocytes 1+; Anisocytosis Present; Basophils # (manual) 0.13 K/uL (0-0.2); Basophils % (manual) 2 %; Eosinophils # (manual) 0.13 K/uL (0-0.50); Eosinophils % (manual) 2 %; Howell-Jolly Bodies 1+; Lymphocytes # (manual) 1.13 K/uL (1.2-3.4); Lymphocytes % (manual) 17 %; Metamyelocytes # (manual) 0.07 K/uL (0-0); Metamyelocytes % (manual) 1 %; Monocytes # (manual) 0.07 K/uL (0.11-0.59); Monocytes % (manual) 1 %; Neutrophils # (manual) 5.11 K/uL (1.40-6.50); Neutrophils % (manual) 77 %
[2023-09-29 19:48] LABS: Albumin Globulin Ratio 1.4 (0.9-2); Albumin Level 3.8 gm/dl (3.4-5.0); BUN Creatinine Ratio 19.7 (10-20); Bilirubin,Total 1.1 mg/dl (0.2-1.0); Calcium 10.5 mg/dl (8.6-10.3); Creatinine Clr Calc Pharmacy 44.3 ml/min; Est GFR (African American) 62.7 ml/min; Est GFR (Non-African American) 54.1 ml/min; Globulin 2.7 gm/dl (2.5-4.0); Total Protein 6.5 gm/dl (6.0-8.3)
[2023-09-29 20:07] LABS: Adenovirus PCR Not Detected (NotDetected); Bordetella parapertussis PCR Not Detected (NotDetected); Bordetella pertussis PCR Not Detected (NotDetected); Chlamydia pneumoniae PCR Not Detected (NotDetected); Coronavirus 229E PCR Not Detected (NotDetected); Coronavirus CoV-2 (COVID19)PCR Not Detected (NotDetected); Coronavirus HKU1 PCR Not Detected (NotDetected); Coronavirus NL63 PCR Not Detected (NotDetected); Coronavirus OC43PCR Not Detected (NotDetected); Human Metapneumovirus PCR Not Detected (NotDetected); Influenza A PCR Not Detected (NotDetected); Influenza B PCR Not Detected (NotDetected); Mycoplasma pneumoniae PCR Not Detected (NotDetected); Parainfluenza Virus 1 PCR Not Detected (NotDetected); Parainfluenza Virus 2 PCR Not Detected (NotDetected); Parainfluenza Virus 3 PCR Not Detected (NotDetected); Parainfluenza Virus 4 PCR Not Detected (NotDetected); Respiratory Syncytial VirusPCR Not Detected (NotDetected); Rhinovirus/Enterovirus PCR Not Detected (NotDetected)
[2023-09-29] MEDS: cefTRIAXone SODIUM 2,000 MG/50 ML BAG IV STA (20:28)
[2023-09-29] MEDS: SODIUM CHLORIDE 0.9% 1,000 ML IV ONE (20:29)
[2023-09-29] MEDS: SODIUM CHLORIDE 0.9% 250 ML IV ONE (20:31)
--- NOTE | 2023-09-29 20:34 | History & Physical Report ---
Date of Service September 29, 2023 Assessment & Plan (1) Fever: Plan: Admit to [facility] for rehab medicine telemetry on pulse oximetry Currently in sinus tachycardia but otherwise stable Presented to the ED due to acute onset of rigors, chills, and fever of 103 Fahrenheit this afternoon Workup thus far has been unremarkable but chest x-ray still needs to be read by radiology and UA still needs to be obtained Patient denies current infectious symptoms but is high risk for infection as he has history of splenectomy and recently completed a long prednisone taper No respiratory symptoms similar to his previous admission for aspiration pneumonia Blood cultures were obtained in the ED, will ensure UA is obtained Patient was given 1.25 L NSS and a dose of ceftriaxone in the ED Will give an additional 1 L LR bolus on admission and start the patient on empiric (48 hours) Zosyn due to his immunocompromise state and history of ESBL UTI resistant to cephalosporins and ciprofloxacin Will also obtain tickborne panel, and random cortisol If any concerns for adrenal insufficiency due to recently long course of prednisone will give stress dose steroids Continue to monitor on telemetry and follow infectious workup Bilateral SCDs for DVT prophylaxis, will hold chemical DVT prophylaxis for now as he is on dual antiplatelet therapy and is high risk for thrombocytopenia with his history of ITP and possible acute infection Heart healthy diet AM CBC, CMP, mag, PT/INR (2) Rigors: Plan: See fever (3) BPH NOS w ur obs/LUTS: Plan: Will follow UA once obtained Monitor for retention (4) Chronic ITP (idiopathic thrombocytopenia): Plan: Platelet count currently stable at 318 Monitor daily CBC (5) Hypertension: Plan: Currently stable Will continue metoprolol but hold amlodipine and losartan for now to avoid hypotension in case he has a true infection (6) CAD (coronary artery disease): Plan: No recent chest pain Continue aspirin, Brilinta, and statin Plan The patient was discussed with Dr. Stacy at the time of admission History of Present Illness Chief Complaint: Fever, rigors Primary Care Provider: Vani Mauro MD Noelle is an 83 year old male with a PMH significant for BPH with LUTS, CAD s/p PCI (Cx and RCA), HTN, ITP S/P splenectomy, and recent admission to [facility] for aspiration pneumonia who presented to the [facility] ED on 09/29/2023 due to acute onset of fever of 103 Fahrenheit, chills, and rigors. On arrival to the ED he was noted to be tachycardic with heart rate in the 130s but otherwise stable. Labs were significant for WBC within normal limits, bicarb of 20 with anion gap within normal limits, lactate within normal limits, Pro-Robby within normal limits and full respiratory BioFire negative. Chest x-ray had been obtained but yet to be read, on my initial read does not appear to have signs of consolidation or volume overload. UA has yet to be obtained at the time of admission. Patient was sitting in bed in no acute distress at the time of exam with his granddaughter bedside, history is obtained from both. He explains that he had been feeling well when he woke this a.m. He recently completed a long prednisone taper which had been prescribed initially to increase his platelet level prior to his procedure which prompted his last admission for aspiration pneumonia. He states that his last dose of prednisone was on 09/24/2023. He drove to [employer] earlier today to shop for some new sneakers. He stopped to get food and had 1 beer prior to driving back to [employer]. While driving back to [employer] he had acute onset of chills and rigors. When he arrived home he took his temperature which was 103 Fahrenheit. He took 1 dose of Tylenol around 1800. Due to the acute onset and severity of symptoms he had his granddaughter drive him to the ER for further evaluation. He denies recent shortness of breath, cough, headache, neck pain/stiffness, abdominal pain, nausea/vomiting, dysuria, hematuria, diarrhea, melena, lower extremity swelling, rash or recent insect bites, and recent trauma. Denies pleuritic chest pain especially on deep inspiration. When asked, he notes that he often urinates frequently at night due to his BPH but confirms again that he is without dysuria or cloudy urine. He confirms he is a full code. Please refer to Dr. Stacy's attestation for any changes to the treatment plan Allergies Allergy/AdvReac Type Severity Reaction Status Date / Time ciprofloxacin Allergy Unknown "Muscle Verified 09/29/23 19:26 problems, split tendons" sulfamethoxazole Allergy Unknown Hives, Verified 09/29/23 19:26 "interferes with immune system" trimethoprim Allergy Unknown Hives, Verified 09/29/23 19:26 "interferes with immune system" morphine AdvReac Unknown Hallucinati Verified 09/29/23 19:26 ons oxycodone AdvReac Unknown Nausea Verified 09/29/23 19:26 Home Medications Medication Instructions Recorded Confirmed Type acetaminophen 500 mg tablet 1,000 mg PO Q6H PRN Pain 02/23/19 09/29/23 History (Tylenol Extra Strength) aspirin 81 mg tablet,delayed 81 mg PO QAM #0 tabs 02/25/19 09/29/23 Rx release (Ecotrin Low Strength) metoprolol succinate 50 mg 50 mg PO QAM 04/09/19 09/29/23 History tablet,extended release 24 hr nitroglycerin 0.4 mg sublingual 0.4 mg sublingual UD PRN chest 01/01/20 09/29/23 Rx tablet (Nitrostat) pain #30 tabs losartan 100 mg tablet 100 mg PO QAM 01/04/23 09/29/23 History atorvastatin 80 mg tablet 80 mg PO HS #90 tabs 04/03/23 09/29/23 Rx ticagrelor 60 mg tablet (Brilinta) 60 mg PO BID #180 tabs 09/10/23 09/29/23 Rx tobramycin 0.3 %-dexamethasone 0.1 1 drp ophthalmic (eye) TID 09/13/23 09/29/23 History % eye drops,suspension amlodipine 5 mg tablet 5 mg PO HS #90 tabs 09/25/23 09/29/23 Rx vitamin B complex 1 tab PO DAILY 09/29/23 09/29/23 History Past Med/Surg History Problem List (Updated 09/30/23 @ 01:11 by Nik Peter MD) Sinus tachycardia (Acute) Decreased hearing of right ear Aspiration pneumonitis History of general anesthesia (Acute) Pneumonia (Acute) Asplenia (Acute) SOB (shortness of breath) (Acute) Wears hearing aid in both ears Phonmayte Rhodeso [id number] BTE-Nathalia disp 06/28/21 Acute UTI Chronic cholecystitis with calculus Asplenia (Acute) Elevated lactic acid level (Acute) Sepsis (Acute) Facial flushing Rigors (Acute) Dyslipidemia Sensorineural hearing loss (SNHL) of both ears Kidney stones, calcium oxalate (Acute) Encounter for pre-operative examination BPH NOS w ur obs/LUTS Encounter for pre-operative examination Hypokalemia Elevated bilirubin DVT prophylaxis Chronic ITP (idiopathic thrombocytopenia) (Acute) Unstable gait Aphasia Dysarthria BPH w urinary obs/LUTS Bilateral kidney stones Jaw pain Bilateral arm pain Paroxysmal ventricular tachycardia GERD (gastroesophageal reflux disease) Rheumatoid arthritis Lymphoma Hypertension Sepsis Prostatitis CAD (coronary artery disease) S/P TONIA x 5. Presented with NSTEMI 02/23/19 and had single TONIA to Cx. Returned with chest pain 02/28/12 and found to have thrombosed stent, required additional PCI x 4. Follows with [facility] cardio. Dilated aortic root Echo 10/2022: Mild aortic root dilatation (4.3 cm). Mildly dilated ascending aorta (4.2 cm) Anemia Medical History Chronic anemia History of kidney stones Diverticulitis of colon with perforation 2019, found incidentally on preop CTS prior to splenectomy. Micro-perforation with free air in abdomen. Admitted to hospital for evaluation. [place] non- surgical. Returned to ED a few days after discharge with BRBPR, surgical intervention considered, but pt ultimately transferred to PSYCHIATRIC and had abdominal drainage catheter placed. No recent issues. Left pontine stroke 2019. Per neurology consult, treatment of ITP with IVIG likely contributed. No residual deficits. Coronary stent thrombosis Presented with NSTEMI 02/23/19 and had single TONIA to Cx. Returned with chest pain 02/28/12 and found to have thrombosed stent, required additional PCI x 4. Chronic ITP (idiopathic thrombocytopenia) Controlled, hx IVIG treatments in the past Mitral regurgitation Non-ST elevation (NSTEMI) myocardial infarction 02/2019 > stents x5 total Rheumatoid arthritis "Hx between ages 14-20 years old.. 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, [facility] History of cardiac cath 02/2019 > stents x5 total History of total hip arthroplasty R/L History of cystoscopy + stone extraction History of lithotripsy History of colonoscopy History of appendectomy History of tooth extraction History of tonsillectomy Family History Father Cancer Other Hypertension Kidney disease No family history of adverse response to anesthesia Social History Smoking Status: Never smoker Tobacco Type: Cigarettes Second Hand Exposure: No; Do You Dip or Chew Tobacco: No; Hx Alcohol Use: Yes Alcohol type: wine Hx Substance Use: No Preferred Language: Yakut Communication Ability: Effective Visual Impairment: No Limitations Motorcycle 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 Repairer Required: No Beliefs That Will Affect Care: None marital status: Current Living Situation: Alone Current Living Situation Comment: [place] Feels Safe at Home: Yes Safety Concerns: Feels Safe At This Time Assistive Devices: Glasses and Hearing Aid - Bilateral Physical Exam Physical Exam: Physical Exam: General: In no acute distress, stated age, he appears flushed/ill but non- toxic appearing HEENT: Normocephalic, atraumatic, no scleral icterus, pupils around round, symmetrical, and reactive to light, moist mucus membranes, trachea midline, no thyromegaly Chest/Pulm: No respiratory distress, symmetrical chest expansion, clear breath sounds throughout Cardiac: tachycardic rate, regular rhythm, no murmurs noted Abdomen: Negative for ascites and bruising, normoactive bowel sounds, soft, non-tender to palpation throughout Musculoskeletal: Symmetrical and without signs of acute trauma, upper and lower extremities with full ROM, no atrophy, spasticity, or flaccidity Extremities: Radial, dorsalis pedis, and posterior tibial pulses are intact and symmetrical, no edema noted in the BL LE's Skin: Flushed, diaphoretic, no signs of rashes, lesions, or infection Neuro: Alert and oriented to person, place, month, year, and president, no focal defects,no tremors noted Psych: No acute distress, polite, calm and cooperative during the exam Results & Data Results & Data Vital Signs (Past 12 Hours) Vital Signs Temp Pulse Resp BP Pulse Ox O2 Del Method 09/29/23 19:27 124 H 09/29/23 18:51 36.9 C 130 H 19 118/74 94 Room Air Laboratory Results Abnormal lab results 09/29/23 Range/Units 19:04 RBC 4.37 L (4.70-6.10) M/uL Hgb 12.4 L (14.0-18.0) g/dl Hct 37.7 L (42.0-52.0) % RDW Std Deviation 63.0 H (36.4-46.3) fL RDW Coeff of Katarina 20.2 H (11.5-14.5) % Lymphocytes # (Manual) 1.13 L (1.2-3.4) K/uL Total Abs Lymphocytes 1.13 L (1.2-3.4) K/uL Monocytes # (Manual) 0.07 L (0.11-0.59) K/uL Metamyelocytes # (Man) 0.07 H (0-0) K/uL PT 12.4 H (9.0-12.0) Seconds INR 1.2 H (0.9-1.1) Chloride 109 H (98-107) mmol/L Carbon Dioxide 20 L (21-32) mmol/L BUN 24 H (6-23) mg/dl Calcium 10.5 H (8.6-10.3) mg/dl Total Bilirubin 1.1 H (0.2-1.0) mg/dl ECG Additional Comments: Sinus tachycardia with Premature atrial complexes Inferior infarct (cited on or before 17-FEB-2017) Cannot rule out Anterior infarct , age undetermined Abnormal ECG When compared with ECG of 13-SEP-2023 12:16, Premature atrial complexes are now Present Vent. rate has increased BY 43 BPM Inverted T waves have replaced nonspecific T wave abnormality in Inferior leads Code Status & VTE Plan Code Status Full code VTE Prophylaxis Plan VTE Prophylaxis will be ordered: Yes Supervising Physician Co-Signing Physician Notes Attending addendum: I have physically seen this patient, have supervised the PARIS's activities, and agree with the H&P unless as otherwise noted. Assessment and Plan: Sepsis with unknown etiology- Patient presented with fever, sinus tachycardia, symptoms of rigors, chills and fever of 103 Fahrenheit this afternoon BioFire testing negative Chest x-ray with no acute findings Patient was most recently admitted from 09/12-09/14/2023 for aspiration pneumonia, chronic ITP and history of splenectomy Appears dehydrated on examination Received 1.25 l normal saline bolus from the ED Follow-up with LR 1 L bolus Received ceftriaxone 2 g IV from the ED Due to history of splenectomy, and history of ESBL E. coli UTI, will place empirically on Zosyn Order tickborne panel History of adrenal insufficiency, check a random cortisol level, then placed on stress dose steroids BPH with LUTS- Follow urinalysis, urine culture and sensitivity History of ESBL E. coli Follow-up urinary retention Chronic ITP- Follow serially CAD/hypertension- Continue aspirin, Brilinta and home statin Hold amlodipine and losartan due to potential for hypotension Continue metoprolol PG Care Time/CCT Total # of Minutes Spent Total Time Spent with Patient: Total time spent is greater than 50% in coordination of care (as documented) at patient's floor/unit and/or counseling patient: C[place] [address] INT INP/OBS CARE 3/75MIN Patient Type Established Medical Decision Making High Complexity Diagnoses Fever R50.9 Rigors R68.89 BPH NOS w ur obs/LUTS N40.1 Chronic ITP (idiopathic thrombocytopenia) D69.3 Hypertension I10 CAD (coronary artery disease) I25.119 Associated angina: with unspecified angina Coronary Disease-Associated Artery/Lesion type: unspecified vessel or lesion type [place] vs. transplanted heart: [place] heart (6) CAD (coronary artery disease) Associated angina: with unspecified angina Coronary Disease-Associated Artery/Lesion type: unspecified vessel or lesion type [place] vs. transplanted heart: [place] heart Qualified Code(s): I25.119 - Atherosclerotic heart disease of [place] coronary artery with unspecified angina pectoris
[2023-09-29] MEDS: LACTATED RINGER'S 1,000 ML IV ONE (21:40)
[2023-09-29] MEDS: PIPERACILLIN/TAZOBACTAM 4.5 GM/100 ML BAG IV ONE (21:40)
[2023-09-29 22:15] LABS: Appearance Urine Clear (Clear); Bacteria Urine Automated None Seen (None Seen); Bilirubin Urine Negative (Negative); Blood Urine Negative (Negative); Cast Urine Automated 0-2 /lpf (0-2); Color Urine Yellow; Epithelial Cell Urine Auto 0-2 /hpf (0-2); Glucose Urine UA Negative (Negative); Ketones Urine Negative (Negative); Leukocyte Esterase Urine 1+ (Negative); Nitrite Urine Positive (Negative); Protein Urine Trace (Negative); RBC Urine Automated 0-2 /hpf (0-2); Urobilinogen Urine Negative (Negative); pH Urine 5.5 (4.5-7.5)
[2023-09-30] MEDS: ATORVASTATIN 40 MG TAB PO SCH (00:26)
[2023-09-30] MEDS: TOBRAMYCIN/DEXAMETHASONE OPH SUSP 2.5 ML BTL OP SCH (00:26)
[2023-09-30] MEDS: PIPERACILLIN/TAZOBACTAM 4.5 GM in DEXTROSE 5% MINI-B 100 ML IV SCH (03:16)
[2023-09-30 06:13] LABS: Albumin Globulin Ratio 1.4 (0.9-2); Albumin Level 3.3 gm/dl (3.4-5.0); BUN Creatinine Ratio 14.6 (10-20); Bilirubin,Total 0.8 mg/dl (0.2-1.0); Calcium 9.6 mg/dl (8.6-10.3); Creatinine Clr Calc Pharmacy 39.4 ml/min; Est GFR (African American) 54.5 ml/min; Globulin 2.3 gm/dl (2.5-4.0); Magnesium 1.7 mg/dl (1.7-2.4); Potassium 4.5 mmol/L (3.5-5.1); Total Protein 5.6 gm/dl (6.0-8.3)
[2023-09-30 06:22] LABS: INR 1.3 (0.9-1.1); Prothrombin Time 13.5 Seconds (9.0-12.0)
[2023-09-30 06:31] LABS: Hematocrit (blood only) 34.8 % (42.0-52.0); Hemoglobin 11.1 g/dl (14.0-18.0); Mean Corpuscular Hgb Conc 31.9 g/dL (32.0-36.0); Mean Corpuscular Volume 87.9 fL (80.0-100.0); Mean Platelet Volume 11.1 fL (9.4-12.4); RDW Coefficient of Variation 20.3 % (11.5-14.5); Red Blood Count 3.96 M/uL (4.70-6.10); White Blood Count 21.97 K/ul (4.8-10.8)
[2023-09-30 06:32] LABS: Acanthocytes 2+; Anisocytosis Present; Basophils # (auto) 0.18 K/uL (0.00-0.20); Basophils % (auto) 0.8 %; Eosinophils # (auto) 0.12 K/uL (0.00-0.50); Eosinophils % (auto) 0.5 %; Howell-Jolly Bodies 1+; Immature Granulocytes # (auto) 0.11 K/uL (0.01-0.20); Immature Granulocytes % (auto) 0.5 %; Lymphocytes # (auto) 0.64 K/uL (1.20-3.40); Lymphocytes % (auto) 2.9 %; Monocytes # (auto) 2.14 K/uL (0.11-0.59); Monocytes % (auto) 9.7 %; Neutrophils # (auto) 18.78 K/uL (1.40-6.50); Neutrophils % (auto) 85.6 %; Polychromasia 1+; Schistocytes 1+
--- NOTE | 2023-09-30 08:05 | XRay Report ---
XR chest 1V not portable HISTORY: 83 years-old Male tachycardia acute chest pain with tachycardia COMPARISON: 09/13/2023 TECHNIQUE: AP view of the chest FINDINGS: Cardiac silhouette is enlarged. Coronary arterial stent. No pneumothorax, pleural effusion or airspac e consolidation. Bones appear grossly intact. IMPRESSION: No acute process. ACT 112: Negative or not required by law. The above report was generated using voice recognition software. It may contain grammatical, syntax o r spelling errors. Electronically signed by: Jonn Chaney M.D. 09/30/2023 8:04 AM
[2023-09-30] MEDS: METOPROLOL SUCC 50MG EXT REL TAB PO SCH (09:19)
[2023-09-30] MEDS: ASPIRIN 81 MG ECTAB PO SCH (09:19)
--- NOTE | 2023-09-30 12:52 | Hospitalist Progress Note ---
Date of Service September 30, 2023 Assessment & Plan (1) Fever: Plan: Presented to the ED due to acute onset of rigors, chills, and fever of 103 Fahrenheit this afternoon -Etiology is unknown, possibly bacterial or viral Workup thus far has been unremarkable Blood cultures Show no growth so far -Infectious panel negative so far Started empirically on IV Zosyn. -Upon reevaluation this morning, feels overall better, no fevers overnight -Continue to monitor cultures, continue empiric IV antibiotics (2) Rigors: Plan: See fever (3) BPH NOS w ur obs/LUTS: Plan: Will follow UA once obtained Monitor for retention (4) Chronic ITP (idiopathic thrombocytopenia): Plan: Platelet count currently stable at 318 Monitor daily CBC (5) Hypertension: Plan: Currently stable Will continue metoprolol but hold amlodipine and losartan for now to avoid hypotension in case he has a true infection (6) CAD (coronary artery disease): Plan: No recent chest pain Continue aspirin, Brilinta, and statin Plan If cultures remain negative and patient remains afebrile will discharge tomorrow Admission and Anticipated Discharge Date Admission Date: September 29, 2023 Subjective Patient seen and examined, feels overall better, no fevers overnight. Review of Systems Review of Systems: All systems reviewed are negative, apart from the ones contained in the history. Physical Exam Physical Exam: The patient is awake, alert and oriented 3, well developed and well nourished, normocephalic and atraumatic, lying in bed and in no acute distress. HEENT--PERRL, EOMI, mucous membranes and oropharynx mildly dry Neck--supple. No JVD. No bruits. Thyroid normal, trachea midline, no adenopathy. Heart--normal S1 and S2. No murmurs, rubs or gallops. Lungs--clear bilaterally, no respiratory distress, no accessory muscle use. Abdomen--normal bowel sounds and soft. Extremities--no cyanosis or clubbing. No edema. Dermatologic--normal skin turgor, normal color, no abnormal lymph nodes, no rash. Neurologic--cranial nerves II through XII grossly intact. Rheumatologic--normal range of motion. Psychiatric--normal affect. Results & Data Results & Data Vital Signs (Past 12 Hours) Vital Signs Temp Pulse Pulse Resp BP Pulse Ox O2 Del Method 09/30/23 11:13 98.1 F 82 18 124/73 95 Room Air 09/30/23 10:19 Room Air 09/30/23 07:35 98.1 F 76 18 128/77 96 Room Air 09/30/23 07:12 71 09/30/23 03:39 97.5 F L 82 18 125/80 94 Room Air 09/30/23 03:00 83 PG Care Time/CCT Total # of Minutes Spent Total Time Spent with Patient: Total time spent is greater than 50% in coordination of care (as documented) at patient's floor/unit and/or counseling patient: Coding Level of Care Code 38777 SUB INP/OBS CARE 2/35MIN Diagnoses Fever R50.9 Rigors R68.89 BPH NOS w ur obs/LUTS N40.1 Chronic ITP (idiopathic thrombocytopenia) D69.3 Hypertension I10 CAD (coronary artery disease) I25.119 Associated angina: with unspecified angina Coronary Disease-Associated Artery/Lesion type: unspecified vessel or lesion type [place] vs. transplanted heart: [place] heart Time Spent (min) 35 (6) CAD (coronary artery disease) Associated angina: with unspecified angina Coronary Disease-Associated Artery/Lesion type: unspecified vessel or lesion type [place] vs. transplanted heart: [place] heart Qualified Code(s): I25.119 - Atherosclerotic heart disease of [place] coronary artery with unspecified angina pectoris
[2023-09-30 16:14] LABS: Appearance Urine Clear (Clear); Bacteria Urine Automated None Seen (None Seen); Bilirubin Urine Negative (Negative); Blood Urine Negative (Negative); Cast Urine Automated 0-2 /lpf (0-2); Color Urine Yellow; Epithelial Cell Urine Auto 0-2 /hpf (0-2); Glucose Urine UA Negative (Negative); Ketones Urine Trace (Negative); Leukocyte Esterase Urine Trace (Negative); Nitrite Urine Negative (Negative); Protein Urine 1+ (Negative); RBC Urine Automated 0-2 /hpf (0-2); Specific Gravity Urine 1.026 (1.000-1.030); Urobilinogen Urine Negative (Negative); WBC Urine Automated 0-5 /hpf (0-5)
[2023-09-30] MEDS: COUGH DROP (SUGAR FREE) LOZ 24 LOZ/1 BOX BUCCAL STA (20:46)
[2023-09-30] MEDS: TICAGRELOR 60 MG PO SCH (20:47)
--- NOTE | 2023-09-30 21:04 | Electrocardiogram Report ---
Test Reason : Blood Pressure : / mmHG Vent. Rate : 126 BPM Atrial Rate : 126 BPM P-R Int : 142 ms QRS Dur : 086 ms QT Int : 312 ms P-R-T Axes : 035 -05 021 degrees QTc Int : 451 ms Sinus tachycardia with Premature atrial complexes Inferior infarct (cited on or before 17-FEB-2017) Cannot rule out Anterior infarct , age undetermined Abnormal ECG When compared with ECG of 13-SEP-2023 12:16, Premature atrial complexes are now Present Vent. rate has increased BY 43 BPM Inverted T waves have replaced nonspecific T wave abnormality in Inferior leads Confirmed by Je Sorenson ([id number]) on 09/30/2023 9:04:26 PM Referred By: REFERRED SELF Confirmed By:Je Sorenson
[2023-09-30 21:08] LABS: A calco-baum cmplx NotReported Not Detected (NotDetected); Bact fragilis Not Reported DETECTED (NotDetected); Blood Culture Id Panel See PCR Comment (NotDetected); C auris Not Reported Not Detected (NotDetected); Calbicans Not Reported Not Detected (NotDetected); Candida glabrata Not Reported Not Detected (NotDetected); Candida krusei Not Reported Not Detected (NotDetected); Cneoformans/gatti Not Reported Not Detected (NotDetected); Cparapsilosis Not Reported Not Detected (NotDetected); E cloacae compx Not Reported Not Detected (NotDetected); Efaecalis Not Reported Not Detected (NotDetected); Efaecium Not Reported Not Detected (NotDetected); Enterobacterales Not Reported Not Detected (NotDetected); Escherichia coli Not Reported Not Detected (NotDetected); H influenzae Not Reported Not Detected (NotDetected); K aerogenes Not Reported Not Detected (NotDetected); Koxytoca Not Reported Not Detected (NotDetected); Kpneumoniae grp Not Reported Not Detected (NotDetected); Lmonocyt Not Reported Not Detected (NotDetected); N meningitidis Not Reported Not Detected (NotDetected); P aeruginosa Not Reported Not Detected (NotDetected); Proteus spp Not Reported Not Detected (NotDetected); Salmonella spp Not Reported Not Detected (NotDetected); Staph lugdunensis Not Reported Not Detected (NotDetected); Staph spp. Not Reported Not Detected (NotDetected); Staphaureus Not Reported Not Detected (NotDetected); Staphepi Not Reported Not Detected (NotDetected); Stenmaltophilia Not Reported Not Detected (NotDetected); Strep agal(GrpB) Not Reported Not Detected (NotDetected); Strep pneum Not Reported Not Detected (NotDetected); Strep pyog (GrpA) Not Reported Not Detected (NotDetected); Strep spp Not Reported Not Detected (NotDetected)
[2023-09-30 21:35] LABS: Bacteroides fragilis DETECTED (NotDetected)
[2023-10-01 06:38] LABS: Albumin Globulin Ratio 1.3 (0.9-2); Albumin Level 3.2 gm/dl (3.4-5.0); BUN Creatinine Ratio 11.7 (10-20); Bilirubin,Total 0.7 mg/dl (0.2-1.0); Creatinine Clr Calc Pharmacy 37.2 ml/min; Est GFR (African American) 50.9 ml/min; Est GFR (Non-African American) 43.9 ml/min; Globulin 2.4 gm/dl (2.5-4.0); Magnesium 1.8 mg/dl (1.7-2.4); Total Protein 5.6 gm/dl (6.0-8.3)
[2023-10-01 06:44] LABS: INR 1.3 (0.9-1.1); Prothrombin Time 13.5 Seconds (9.0-12.0)
[2023-10-01 07:01] LABS: Hematocrit (blood only) 34.1 % (42.0-52.0); Hemoglobin 11.2 g/dl (14.0-18.0); Mean Corpuscular Hemoglobin 28.6 pg (25.0-34.0); Mean Corpuscular Hgb Conc 32.8 g/dL (32.0-36.0); Mean Corpuscular Volume 87.2 fL (80.0-100.0); RDW Coefficient of Variation 20.1 % (11.5-14.5); RDW Standard Deviation 63.6 fL (36.4-46.3); Red Blood Count 3.91 M/uL (4.70-6.10); White Blood Count 13.99 K/ul (4.8-10.8)
[2023-10-01 07:03] LABS: Acanthocytes 2+; Anisocytosis Present; Basophils # (auto) 0.22 K/uL (0.00-0.20); Basophils % (auto) 1.6 %; Eosinophils # (auto) 0.33 K/uL (0.00-0.50); Eosinophils % (auto) 2.4 %; Immature Granulocytes # (auto) 0.07 K/uL (0.01-0.20); Immature Granulocytes % (auto) 0.5 %; Lymphocytes # (auto) 0.91 K/uL (1.20-3.40); Lymphocytes % (auto) 6.5 %; Monocytes # (auto) 2.48 K/uL (0.11-0.59); Monocytes % (auto) 17.7 %; Neutrophils # (auto) 9.98 K/uL (1.40-6.50); Neutrophils % (auto) 71.3 %; Polychromasia 1+; Schistocytes 1+
--- NOTE | 2023-10-01 11:28 | Hospitalist Progress Note ---
Date of Service October 01, 2023 Assessment & Plan (1) Bacteremia: Plan: Patient admitted to the hospital on account of fever Blood cultures growing gram-negative bacilli, full characterization pending Source is unknown Will obtain 2D echo Continue empiric IV Zosyn Consult infectious diseases (2) Fever: Plan: Now resolved Likely due to gram-negative bacilli bacteremia No fevers in the past 24 hours (3) Rigors: Plan: See fever (4) BPH NOS w ur obs/LUTS: Plan: Will follow UA once obtained Monitor for retention (5) Chronic ITP (idiopathic thrombocytopenia): Plan: Platelet count currently stable Monitor daily CBC (6) Hypertension: Plan: Currently stable Will continue metoprolol but hold amlodipine and losartan for now to avoid hypotension in case he has a true infection (7) CAD (coronary artery disease): Plan: No recent chest pain Continue aspirin, Brilinta, and statin Plan Continue hospitalization Full code Admission and Anticipated Discharge Date Admission Date: October 01, 2023 Subjective Patient seen and examined, feels overall better, no fevers overnight. Review of Systems Review of Systems: All systems reviewed are negative, apart from the ones contained in the history. Physical Exam Physical Exam: The patient is awake, alert and oriented 3, well developed and well nourished, normocephalic and atraumatic, lying in bed and in no acute distress. HEENT--PERRL, EOMI, mucous membranes and oropharynx mildly dry Neck--supple. No JVD. No bruits. Thyroid normal, trachea midline, no adenopathy. Heart--normal S1 and S2. No murmurs, rubs or gallops. Lungs--clear bilaterally, no respiratory distress, no accessory muscle use. Abdomen--normal bowel sounds and soft. Extremities--no cyanosis or clubbing. No edema. Dermatologic--normal skin turgor, normal color, no abnormal lymph nodes, no rash. Neurologic--cranial nerves II through XII grossly intact. Rheumatologic--normal range of motion. Psychiatric--normal affect. Results & Data Results & Data Vital Signs (Past 12 Hours) Vital Signs Temp Pulse Pulse Resp BP BP Pulse Ox 10/01/23 11:23 97.7 F 78 18 124/71 95 10/01/23 07:25 97.9 F 72 16 147/82 H 94 10/01/23 07:08 70 10/01/23 03:43 98.4 F 74 18 127/74 94 O2 Del Method 10/01/23 11:23 Room Air 10/01/23 07:25 Room Air 10/01/23 07:08 10/01/23 03:43 Room Air PG Care Time/CCT Total # of Minutes Spent Total Time Spent with Patient: Total time spent is greater than 50% in coordination of care (as documented) at patient's floor/unit and/or counseling patient: Coding Level of Care Code 32868 SUB INP/OBS CARE 2/35MIN Diagnoses Bacteremia R78.81 Fever R50.9 Rigors R68.89 BPH NOS w ur obs/LUTS N40.1 Chronic ITP (idiopathic thrombocytopenia) D69.3 Hypertension I10 CAD (coronary artery disease) I25.119 Associated angina: with unspecified angina Coronary Disease-Associated Artery/Lesion type: unspecified vessel or lesion type [place] vs. transplanted heart: [place] heart Time Spent (min) 35 (7) CAD (coronary artery disease) Associated angina: with unspecified angina Coronary Disease-Associated Artery/Lesion type: unspecified vessel or lesion type [place] vs. transplanted heart: [place] heart Qualified Code(s): I25.119 - Atherosclerotic heart disease of [place] coronary artery with unspecified angina pectoris
--- NOTE | 2023-10-01 13:06 | Infectious Disease Consult ---
Date of Consultation October 01, 2023 Assessment & Plan (1) Chronic cholecystitis with calculus: (2) Sepsis: Plan This is an 83-year-old man with a past medical history of CAD, LUTS, hypertension, ITP status post colectomy, recently admitted to [facility] for aspiration pneumonia presents on 09/28 with fever, chills, rigors. He denies rash, headache, vision changes, shortness of breath, chest pain, change in urinary habits, change in bowel habits. He does have mild abdominal pain. In the last few days he played golf and drove to [place]. He developed acute chills and shivering. Denies any triggering events. He denies any sick contacts. In the ED he is afebrile but tachycardic. Labs: WBC 6.64-->21.97-->13.99, BUN 24, creatinine 1.22 lactate 1.4, Lyme screen negative, respiratory viral pattern negative. Urinalysis positive nitrites, 6-10 WBCs blood culture with gram- negative rods. Gram-negative rods identified as Bacteroides fragilis on BC ID. Chest x-ray with no acute process. He is currently on Zosyn. ID consulted for gram-negative bacteremia # GNR Bacteremia ( bacteroides sp per BCID PCR # LLQ TTP # H/O BL hip replacement # Cipro Side effect tendon rupture #Sulfa allergy - hives Discussion-R/O abdominal source for Bacteroides bacteremia in setting of LLQ on exam . He had not urinary symptoms, bacteriuria. No oral lesions, No evidence of active infection at B/L hips Recs Continue Zosyn 4.5gIV q8hrs Follow up GNR ID and sensi on cx ( IDed as Bacteroides on BCID Pcr) Check CTAP given Organism and LLQ pain on exam Thank you for this consult. ID will continue to follow Na Longoria MD, MPH Infectious Disease [facility], [facility] Call [phone] with questions. Consultation Information Consultation was provided via telemedicine using two-way real-time interactive telecommunication between the patient and the telemedicine provider. For the duration of the visit, the provider was performing the assessment from a different facility than the patient. This includesuse of bluetooth stethoscope forauscultationperformed by the telepresenter that the telemedicine provider can hear if described in the physical exam. Office Rental Clerk contact information: Please call [facility] Call Center [phone]. (Phone Number For Physician Use Only) After establishing a telemedicine visit, patient was: Patient was verified with two unique identifiers Time Spent with Patient: Initial => 75 min History of Present Illness Reason for Consultation: Bacteremia Requesting Physician: Yarelis Pedersen MD Attending Physician: Mirza Stacy MD History of Present Illness This is an 83-year-old man with a past medical history of CAD, LUTS, hypertension, ITP status post colectomy, recently admitted to [facility] for aspiration pneumonia presents on 09/28 with fever, chills, rigors. He denies rash, headache, vision changes, shortness of breath, chest pain, change in urinary habits, change in bowel habits. He does have mild abdominal pain. In the last few days he played golf and drove to [place]. He developed acute chills and shivering. Denies any triggering events. He denies any sick contacts. In the ED he is afebrile but tachycardic. Labs: WBC 6.64-->21.97-->13.99, BUN 24, creatinine 1.22 lactate 1.4, Lyme screen negative, respiratory viral pattern negative. Urinalysis positive nitrites, 6-10 WBCs blood culture with gram- negative rods. Gram-negative rods identified as Bacteroides fragilis on ID. Chest x-ray with no acute process. He is currently on Zosyn. ID consulted for gram-negative bacteremia Allergies Allergy/AdvReac Type Severity Reaction Status Date / Time ciprofloxacin Allergy Unknown "Muscle Verified 09/29/23 19:26 problems, split tendons" sulfamethoxazole Allergy Unknown Hives, Verified 09/29/23 19:26 "interferes with immune system" trimethoprim Allergy Unknown Hives, Verified 09/29/23 19:26 "interferes with immune system" morphine AdvReac Unknown Hallucinati Verified 09/29/23 19:26 ons oxycodone AdvReac Unknown Nausea Verified 09/29/23 19:26 Home Medications Medication Instructions Recorded Confirmed Type acetaminophen 500 mg tablet 1,000 mg PO Q6H PRN Pain 02/23/19 09/29/23 History (Tylenol Extra Strength) aspirin 81 mg tablet,delayed 81 mg PO QAM #0 tabs 12/24/19 07/27/24 Rx release (Ecotrin Low Strength) metoprolol succinate 50 mg 50 mg PO QAM 04/09/19 09/29/23 History tablet,extended release 24 hr nitroglycerin 0.4 mg sublingual 0.4 mg sublingual UD PRN chest 01/01/20 09/29/23 Rx tablet (Nitrostat) pain #30 tabs losartan 100 mg tablet 100 mg PO QAM 01/04/23 09/29/23 History atorvastatin 80 mg tablet 80 mg PO HS #90 tabs 04/03/23 09/29/23 Rx ticagrelor 60 mg tablet (Brilinta) 60 mg PO BID #180 tabs 09/10/23 09/29/23 Rx tobramycin 0.3 %-dexamethasone 0.1 1 drp ophthalmic (eye) TID 09/13/23 09/29/23 History % eye drops,suspension amlodipine 5 mg tablet 5 mg PO HS #90 tabs 09/25/23 09/29/23 Rx vitamin B complex 1 tab PO DAILY 09/29/23 09/29/23 History Patient History Medical History Chronic anemia History of kidney stones Diverticulitis of colon with perforation 2019, found incidentally on preop CTS prior to splenectomy. Micro-perforation with free air in abdomen. Admitted to hospital for evaluation. [place] non- surgical. Returned to ED a few days after discharge with BRBPR, surgical intervention considered, but pt ultimately transferred to [facility] and had abdominal drainage catheter placed. No recent issues. Left pontine stroke 2019. Per neurology consult, treatment of ITP with IVIG likely contributed. No residual deficits. Coronary stent thrombosis Presented with NSTEMI 02/23/19 and had single TONIA to Cx. Returned with chest pain 02/28/12 and found to have thrombosed stent, required additional PCI x 4. Chronic ITP (idiopathic thrombocytopenia) Controlled, hx IVIG treatments in the past Mitral regurgitation Non-ST elevation (NSTEMI) myocardial infarction 02/2019 > stents x5 total Rheumatoid arthritis "Hx between ages 14-20 years old.. 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, [facility] History of cardiac cath 02/2019 > stents x5 total History of total hip arthroplasty R/L History of cystoscopy + stone extraction History of lithotripsy History of colonoscopy History of appendectomy History of tooth extraction History of tonsillectomy Family History Father Cancer Other Hypertension Kidney disease No family history of adverse response to anesthesia Social History Smoking Status: Never smoker Tobacco Type: Cigarettes Second Hand Exposure: No; Do You Dip or Chew Tobacco: No; Hx Alcohol Use: Yes Alcohol type: wine Hx Substance Use: No Preferred Language: Slovak Communication Ability: Effective Visual Impairment: No Limitations Animal Killer Required: No Beliefs That Will Affect Care: None marital status: Current Living Situation: Alone Current Living Situation Comment: aSry Feels Safe at Home: Yes Safety Concerns: Feels Safe At This Time Assistive Devices: Glasses and Hearing Aid - Bilateral Review of System A 10 point ROS obtained. Pertinent positives as per HPI . Physical Exam Physical Exam: Gen- NAD, laying in bed Neck - Supple HEENT - anicteric sclera, fair dentition,some missing teeth No lesions,ulcers, Clear phaynx Lungs- No increased work of breathing Abdomen- soft, LLQ tenderness - No suprapubic tenderness, No CVA tenderness Ext- No edema MSK- No TTP at BL hip Skin- no lesions, rash or wounds Neuro- AAO times 3 Psych- Normal mood, cooperative Results & Data Vital Signs (Past 12 Hours) Vital Signs Temp Pulse Pulse Resp BP BP Pulse Ox 10/01/23 11:23 36.5 C 78 18 124/71 95 10/01/23 07:25 36.6 C 72 16 147/82 H 94 10/01/23 07:08 70 10/01/23 03:43 36.9 C 74 18 127/74 94 O2 Del Method 10/01/23 11:23 Room Air 10/01/23 07:25 Room Air 10/01/23 07:08 10/01/23 03:43 Room Air Laboratory Results Laboratory Results - last 48 hr 09/29/23 09/29/23 09/29/23 18:55 19:04 19:55 WBC 6.64 RBC 4.37 L Hgb 12.4 L Hct 37.7 L MCV 86.3 MCH 28.4 MCHC 32.9 RDW Std Deviation 63.0 H RDW Coeff of Katarina 20.2 H Plt Count MPV Immature Gran % (Auto) Neut % (Auto) Lymph % (Auto) Gregory % (Auto) Eos % (Auto) Baso % (Auto) Neut # (Auto) Lymph # (Auto) Gregory # (Auto) Eos # (Auto) Baso # (Auto) Immature Gran # (Auto) Neutrophils % (Manual) 77 Lymphocytes % (Manual) 17 Monocytes % (Manual) 1 Eosinophils % (Manual) 2 Basophils % (Manual) 2 Metamyelocytes % (Man) 1 Neutrophils # (Manual) 5.11 Total Absolute Neuts 5.11 Lymphocytes # (Manual) 1.13 L Total Abs Lymphocytes 1.13 L Monocytes # (Manual) 0.07 L Eosinophils # (Manual) 0.13 Basophils # (Manual) 0.13 Metamyelocytes # (Man) 0.07 H Plt Count ,Citrate 318 Polychromasia Anisocytosis Present Yi-[place] Bodies 1+ Acanthocytes (Spur) 1+ Schistocytes PT 12.4 H INR 1.2 H APTT 22 PTT Ratio 0.8 Sodium 139 Potassium 4.0 Chloride 109 H Carbon Dioxide 20 L Anion Gap 10 BUN 24 H Creatinine 1.22 Est Cr Clr Drug Dosing 44.3 Est GFR ( Amer) 62.7 Est GFR (Non-Af Amer) 54.1 BUN/Creatinine Ratio 19.7 Glucose 88 POC Glucose Lactate 1.4 Calcium 10.5 H Magnesium Total Bilirubin 1.1 H AST 26 ALT 38 Alkaline Phosphatase 63 Total Protein 6.5 Albumin 3.8 Globulin 2.7 Albumin/Globulin Ratio 1.4 Procalcitonin 0.10 Random Cortisol 33.21 Urine Color Urine Appearance Urine pH Ur Specific Florence Urine Protein Urine Glucose (UA) Urine Ketones Urine Blood Urine Nitrite Urine Bilirubin Urine Urobilinogen Ur Leukocyte Esterase Urine WBC (Auto) Urine RBC (Auto) U Hyaline Cast (Auto) U Epithel Cells (Auto) Urine Bacteria (Auto) Adenovirus (PCR) Not Detected Anaplasma Smear See Comment Babesia Smear See Comment Bacteroides fragilis DETECTED A B. pertussis DNA (PCR) Not Detected B.parapertussis DNA PCR Not Detected Lyme Disease Screen Negative C. pneumoniae DNA (PCR) Not Detected Coronavirus OC43 (PCR) Not Detected Coronavirus HKU1 (PCR) Not Detected Coronavirus 229E (PCR) Not Detected SARS-CoV-2 (PCR) Not Detected Coronavirus NL63 (PCR) Not Detected Human Metapneumovir PCR Not Detected Influenza Type A (PCR) Not Detected Influenza Type B (PCR) Not Detected M. pneumoniae (PCR) Not Detected Parainfluenza 1 (PCR) Not Detected Parainfluenza 2 (PCR) Not Detected Parainfluenza 3 (PCR) Not Detected Parainfluenza 4 (PCR) Not Detected RSV (PCR) Not Detected Entero/Rhino (PCR) Not Detected Bld Cult ID Panel PCR See PCR Comment 09/29/23 09/30/23 09/30/23 21:49 05:28 16:00 WBC 21.97 H D RBC 3.96 L Hgb 11.1 L Hct 34.8 L MCV 87.9 MCH 28.0 MCHC 31.9 L RDW Std Deviation 64.0 H RDW Coeff of Katarina 20.3 H Plt Count MPV 11.1 Immature Gran % (Auto) 0.5 Neut % (Auto) 85.6 Lymph % (Auto) 2.9 Gregory % (Auto) 9.7 Eos % (Auto) 0.5 Baso % (Auto) 0.8 Neut # (Auto) 18.78 H Lymph # (Auto) 0.64 L Gregory # (Auto) 2.14 H Eos # (Auto) 0.12 Baso # (Auto) 0.18 Immature Gran # (Auto) 0.11 Neutrophils % (Manual) Lymphocytes % (Manual) Monocytes % (Manual) Eosinophils % (Manual) Basophils % (Manual) Metamyelocytes % (Man) Neutrophils # (Manual) Total Absolute Neuts Lymphocytes # (Manual) Total Abs Lymphocytes Monocytes # (Manual) Eosinophils # (Manual) Basophils # (Manual) Metamyelocytes # (Man) Plt Count ,Citrate 301 Polychromasia 1+ Anisocytosis Present Yi-[place] Bodies 1+ Acanthocytes (Spur) 2+ Schistocytes 1+ PT 13.5 H INR 1.3 H APTT PTT Ratio Sodium 140 Potassium 4.5 Chloride 110 H Carbon Dioxide 24 Anion Gap 6 BUN 20 Creatinine 1.37 Est Cr Clr Drug Dosing 39.4 Est GFR ( Amer) 54.5 Est GFR (Non-Af Amer) 47.0 BUN/Creatinine Ratio 14.6 Glucose 97 POC Glucose Lactate Calcium 9.6 Magnesium 1.7 Total Bilirubin 0.8 AST 24 ALT 33 Alkaline Phosphatase 48 Total Protein 5.6 L Albumin 3.3 L Globulin 2.3 L Albumin/Globulin Ratio 1.4 Procalcitonin Random Cortisol Urine Color Yellow Yellow Urine Appearance Clear Clear Urine pH 5.5 5.0 Ur Specific Florence 1.010 1.026 Urine Protein Trace H 1+ H Urine Glucose (UA) Negative Negative Urine Ketones Negative Trace H Urine Blood Negative Negative Urine Nitrite Positive A Negative Urine Bilirubin Negative Negative Urine Urobilinogen Negative Negative Ur Leukocyte Esterase 1+ H Trace H Urine WBC (Auto) 6-10 H 0-5 Urine RBC (Auto) 0-2 0-2 U Hyaline Cast (Auto) 0-2 0-2 U Epithel Cells (Auto) 0-2 0-2 Urine Bacteria (Auto) None Seen None Seen Adenovirus (PCR) Anaplasma Smear Babesia Smear Bacteroides fragilis B. pertussis DNA (PCR) B.parapertussis DNA PCR Lyme Disease Screen C. pneumoniae DNA (PCR) Coronavirus OC43 (PCR) Coronavirus HKU1 (PCR) Coronavirus 229E (PCR) SARS-CoV-2 (PCR) Coronavirus NL63 (PCR) Human Metapneumovir PCR Influenza Type A (PCR) Influenza Type B (PCR) M. pneumoniae (PCR) Parainfluenza 1 (PCR) Parainfluenza 2 (PCR) Parainfluenza 3 (PCR) Parainfluenza 4 (PCR) RSV (PCR) Entero/Rhino (PCR) Bld Cult ID Panel PCR 10/01/23 10/01/23 06:02 12:07 WBC 13.99 H RBC 3.91 L Hgb 11.2 L Hct 34.1 L MCV 87.2 MCH 28.6 MCHC 32.8 RDW Std Deviation 63.6 H RDW Coeff of Katarina 20.1 H Plt Count MPV Not Reportable Immature Gran % (Auto) 0.5 Neut % (Auto) 71.3 Lymph % (Auto) 6.5 Gregory % (Auto) 17.7 Eos % (Auto) 2.4 Baso % (Auto) 1.6 Neut # (Auto) 9.98 H Lymph # (Auto) 0.91 L Gregory # (Auto) 2.48 H Eos # (Auto) 0.33 Baso # (Auto) 0.22 H Immature Gran # (Auto) 0.07 Neutrophils % (Manual) Lymphocytes % (Manual) Monocytes % (Manual) Eosinophils % (Manual) Basophils % (Manual) Metamyelocytes % (Man) Neutrophils # (Manual) Total Absolute Neuts Lymphocytes # (Manual) Total Abs Lymphocytes Monocytes # (Manual) Eosinophils # (Manual) Basophils # (Manual) Metamyelocytes # (Man) Plt Count ,Citrate 274 Polychromasia 1+ Anisocytosis Present Yi-[place] Bodies Acanthocytes (Spur) 2+ Schistocytes 1+ PT 13.5 H INR 1.3 H APTT PTT Ratio Sodium 139 Potassium 4.0 Chloride 110 H Carbon Dioxide 24 Anion Gap 5 BUN 17 Creatinine 1.45 H Est Cr Clr Drug Dosing 37.2 Est GFR ( Amer) 50.9 Est GFR (Non-Af Amer) 43.9 BUN/Creatinine Ratio 11.7 Glucose 99 POC Glucose 113 H Lactate Calcium 9.0 Magnesium 1.8 Total Bilirubin 0.7 AST 23 ALT 30 Alkaline Phosphatase 48 Total Protein 5.6 L Albumin 3.2 L Globulin 2.4 L Albumin/Globulin Ratio 1.3 Procalcitonin Random Cortisol Urine Color Urine Appearance Urine pH Ur Specific [place] Urine Protein Urine Glucose (UA) Urine Ketones Urine Blood Urine Nitrite Urine Bilirubin Urine Urobilinogen Ur Leukocyte Esterase Urine WBC (Auto) Urine RBC (Auto) U Hyaline Cast (Auto) U Epithel Cells (Auto) Urine Bacteria (Auto) Adenovirus (PCR) Anaplasma Smear Babesia Smear Bacteroides fragilis B. pertussis DNA (PCR) B.parapertussis DNA PCR Lyme Disease Screen C. pneumoniae DNA (PCR) Coronavirus OC43 (PCR) Coronavirus HKU1 (PCR) Coronavirus 229E (PCR) SARS-CoV-2 (PCR) Coronavirus NL63 (PCR) Human Metapneumovir PCR Influenza Type A (PCR) Influenza Type B (PCR) M. pneumoniae (PCR) Parainfluenza 1 (PCR) Parainfluenza 2 (PCR) Parainfluenza 3 (PCR) Parainfluenza 4 (PCR) RSV (PCR) Entero/Rhino (PCR) Bld Cult ID Panel PCR Diagnostic Findings Microbiology 09/29/23 19:55 Blood Aerobic Blood Culture - Preliminary No growth in Aerobic bottle after 24 hours. 09/29/23 19:55 Blood Anaerobic Blood Culture - Preliminary Gram negative bacilli 09/29/23 20:22 Blood Aerobic Blood Culture - Preliminary No growth in Aerobic bottle after 24 hours. 09/29/23 20:22 Blood Anaerobic Blood Culture - Preliminary Gram negative bacilli Medications Administered Home Medications Medication Instructions Recorded Confirmed Last Taken acetaminophen 500 mg tablet 1,000 mg PO Q6H PRN Pain 02/23/19 09/29/23 09/29/23 (Tylenol Extra Strength) aspirin 81 mg tablet,delayed 81 mg PO QAM #0 tabs 02/25/19 09/29/23 09/29/23 09:00 release (Ecotrin Low Strength) metoprolol succinate 50 mg 50 mg PO QAM 04/09/19 09/29/23 09/29/23 10:00 tablet,extended release 24 hr nitroglycerin 0.4 mg sublingual 0.4 mg sublingual UD PRN chest 01/01/20 09/29/23 07/14/21 tablet (Nitrostat) pain #30 tabs losartan 100 mg tablet 100 mg PO QAM 01/04/23 09/29/23 09/29/23 10:00 atorvastatin 80 mg tablet 80 mg PO HS #90 tabs 04/03/23 09/29/23 09/28/23 20:00 ticagrelor 60 mg tablet (Brilinta) 60 mg PO BID #180 tabs 09/10/23 09/29/23 09/29/23 10:00 tobramycin 0.3 %-dexamethasone 0.1 1 drp ophthalmic (eye) TID 09/13/23 09/29/23 09/29/23 07:00 % eye drops,suspension amlodipine 5 mg tablet 5 mg PO HS #90 tabs 09/25/23 09/29/23 09/28/23 20:00 vitamin B complex 1 tab PO DAILY 09/29/23 09/29/23 09/29/23 07:00 Active Medications Generic Name Dose Route Start Last Admin Trade Name Freq PRN Reason Stop Dose Admin Aspirin 81 mg 09/30/23 09:00 10/01/23 08:33 Aspirin 81 Mg Ectab PO 10/30/23 08:59 81 mg QAM ERICK Administration Atorvastatin Calcium 80 mg 09/29/23 23:28 09/30/23 20:46 Atorvastatin 40 Mg Tab PO 10/29/23 23:27 80 mg HS REICK Administration Piperacillin Sod/Tazobactam 100 mls @ 25 mls/hr 09/30/23 04:00 10/01/23 11:39 Sod 4.5 gm/ Dextrose IV 10/02/23 03:59 25 mls/hr Q8H ERICK Administration Protocol Metoprolol Succinate 50 mg 09/30/23 09:00 10/01/23 08:33 Metoprolol Succ 50mg Ext Rel Tab PO 10/30/23 08:59 50 mg QAM ERICK Administration Ticagrelor 60 mg 09/30/23 21:00 10/01/23 08:33 Ticagrelor 60 Mg Tab [Patient Own Med] PO 10/30/23 20:59 60 mg BID ERICK Administration Tobramycin/Dexamethasone 1 drops 09/29/23 23:28 10/01/23 08:33 Tobramycin/Dexamethasone Oph Susp 2.5 Ml Btl OP 10/29/23 23:27 1 drops TID ERICK Administration (2) Sepsis Sepsis acute organ dysfunction status: unspecified Sepsis type: sepsis due to unspecified organism Qualified Code(s): A41.9 - Sepsis, unspecified organism
--- NOTE | 2023-10-01 15:18 | XCELERA ---
[id number] [id number]
[2023-10-01] MEDS ORDERED: diphenhydrAMINE Capsule 25 MG CAP PO ONE (15:32)
[2023-10-01] MEDS: diphenhydrAMINE HCl 12.5 MG/5 ML UDC PO ONE (16:09)
--- NOTE | 2023-10-01 19:58 | CT Scan Report ---
CT abd pelvis wo con CLINICAL HISTORY: source of bacteremia TECHNIQUE: Helical axial images of the abdomen and pelvis were obtained. Automated dose lowering tech niques and/or adjustment according to patient size were utilized for this exam. This exam was perfor med without intravenous contrast. CT DOSE: 1153.83 mGy.cm COMPARISON: Comparison is made to CT abdomen pelvis 07/18/2023 FINDINGS: Lower chest: Bibasilar atelectasis versus scarring is seen. Liver: Unremarkable. No focal lesions are seen. Gallbladder and biliary tree: Redemonstration of complex appearance of the gallbladder with possible involvement of the adjacent liver, less well evaluated compared to prior exam due to noncontrast tech nique. No intra- or extrahepatic biliary ductal dilation. Pancreas: Unremarkable, no focal lesions. Spleen: Patient is status post splenectomy. Adrenals: Unremarkable. Kidneys and ureters: Renal cysts are seen bilaterally with bilateral perinephric stranding. Bladder: Unremarkable. Reproductive organs: Unremarkable. Bowel: There are numerous diverticula. There is fat stranding about a superiorly oriented diverticulu m with some localized regional gas and an adjacent irregular gas and fluid collection measuring 11 mm in diameter. Lymph nodes Retroperitoneal: Retroperitoneal lymph nodes measure up to 11 mm. Pelvic: Bilateral prominent pelvic lymph nodes are unchanged from prior exam measuring up to 15 mm on the left. Mesenteric: Unremarkable. Peritoneum: Gas and fluid collection is seen in the left lower quadrant adjacent to diverticula. Ther e is a small focus of pneumoperitoneum immediately and dependent to this lesion. Is soft tissue nodularity is unchanged from prior exam. Vessels: Atherosclerotic calcifications are seen. Infrarenal aortic aneurysm measuring up to 32 mm, u nchanged from prior exam. Abdominal wall: Unremarkable. Bones: Degenerative changes in the visualized spine. IMPRESSION: 1. Findings are compatible with a perforated diverticulum with a small abscess and regional pneumope ritoneum. 2. Overall no significant change in retroperitoneal and iliac lymphadenopathy, perinephric nodules, and abnormality of the gallbladder and gallbladder fossa. ACT 112: Negative or not required by law. Electronically signed by: Felipe Vences M.D. 10/01/2023 7:56 PM
[2023-10-02 06:24] LABS: Albumin Globulin Ratio 1.1 (0.9-2); Albumin Level 3.2 gm/dl (3.4-5.0); BUN Creatinine Ratio 12.9 (10-20); Bilirubin,Total 0.7 mg/dl (0.2-1.0); Calcium 9.1 mg/dl (8.6-10.3); Creatinine Clr Calc Pharmacy 38.5 ml/min; Est GFR (African American) 53.1 ml/min; Est GFR (Non-African American) 45.8 ml/min; Globulin 2.8 gm/dl (2.5-4.0); Potassium 3.8 mmol/L (3.5-5.1)
[2023-10-02 06:25] LABS: Acanthocytes 1+; Anisocytosis Present; Basophils # (auto) 0.15 K/uL (0.00-0.20); Basophils % (auto) 1.2 %; Eosinophils # (auto) 0.36 K/uL (0.00-0.50); Eosinophils % (auto) 2.8 %; Hemoglobin 11.2 g/dl (14.0-18.0); Immature Granulocytes # (auto) 0.09 K/uL (0.01-0.20); Immature Granulocytes % (auto) 0.7 %; Lymphocytes # (auto) 0.92 K/uL (1.20-3.40); Lymphocytes % (auto) 7.1 %; Mean Corpuscular Hemoglobin 28.6 pg (25.0-34.0); Mean Corpuscular Hgb Conc 32.9 g/dL (32.0-36.0); Monocytes # (auto) 2.69 K/uL (0.11-0.59); Monocytes % (auto) 20.8 %; Neutrophils # (auto) 8.75 K/uL (1.40-6.50); Neutrophils % (auto) 67.4 %; Nucleated RBC # (auto) 0.04 K/uL (0.00-0.12); Nucleated RBC % (auto) 0.3 %; Polychromasia 1+; RDW Coefficient of Variation 19.9 % (11.5-14.5); RDW Standard Deviation 63.2 fL (36.4-46.3); Red Blood Count 3.91 M/uL (4.70-6.10); White Blood Count 12.96 K/ul (4.8-10.8)
[2023-10-02 06:46] LABS: INR 1.2 (0.9-1.1); Prothrombin Time 12.4 Seconds (9.0-12.0)
--- NOTE | 2023-10-02 11:21 | Hospitalist Progress Note ---
Date of Service October 02, 2023 Assessment & Plan (1) Bacteremia: Plan: Gram negative bacteremia due to perforated diverticulum with abscess Patient admitted to the hospital on account of fever Blood cultures growing gram-negative bacilli, full characterization pending Source is likely perforated diverticulitis with abscess as seen on CT abdomen and pelvis 2D echo did not show any evidence of vegetation Continue empiric IV Zosyn Consult infectious diseases (2) Diverticulitis of colon with perforation: Plan: Patient has a history of perforated diverticulitis in the past Was concerned that being on steroids may aggravate his perforated diverticulitis as it happened before CT abdomen and pelvis confirmed evidence of diverticulitis with perforation and abscess Currently on IV Zosyn Will defer to ID regarding antibiotics. (3) Fever: Plan: Now resolved Likely due to gram-negative bacilli bacteremia No fevers in the past 24 hours (4) BPH NOS w ur obs/LUTS: Plan: Will follow UA once obtained Monitor for retention (5) Chronic ITP (idiopathic thrombocytopenia): Plan: Platelet count currently stable Monitor daily CBC (6) Hypertension: Plan: Currently stable Will continue metoprolol but hold amlodipine and losartan for now to avoid hypotension in case he has a true infection (7) CAD (coronary artery disease): Plan: No recent chest pain Continue aspirin, Brilinta, and statin (8) Rigors: Plan: See fever Plan Continue hospitalization Full code Admission and Anticipated Discharge Date Admission Date: October 01, 2023 Subjective Patient seen and examined, feels overall better, no fevers overnight. Review of Systems Review of Systems: All systems reviewed are negative, apart from the ones contained in the history. Physical Exam Physical Exam: The patient is awake, alert and oriented 3, well developed and well nourished, normocephalic and atraumatic, lying in bed and in no acute distress. HEENT--PERRL, EOMI, mucous membranes and oropharynx mildly dry Neck--supple. No JVD. No bruits. Thyroid normal, trachea midline, no adenopathy. Heart--normal S1 and S2. No murmurs, rubs or gallops. Lungs--clear bilaterally, no respiratory distress, no accessory muscle use. Abdomen--normal bowel sounds and soft. Extremities--no cyanosis or clubbing. No edema. Dermatologic--normal skin turgor, normal color, no abnormal lymph nodes, no rash. Neurologic--cranial nerves II through XII grossly intact. Rheumatologic--normal range of motion. Psychiatric--normal affect. Results & Data Results & Data Vital Signs (Past 12 Hours) Vital Signs Temp Pulse Pulse Resp BP BP Pulse Ox 10/02/23 11:13 98.1 F 81 17 146/80 H 97 10/02/23 07:19 97.9 F 65 17 148/79 H 95 10/02/23 07:00 10/02/23 06:59 79 10/02/23 02:22 98.8 F 75 18 124/65 97 O2 Del Method 10/02/23 11:13 Room Air 10/02/23 07:19 Room Air 10/02/23 07:00 Room Air 10/02/23 06:59 10/02/23 02:22 Room Air PG Care Time/CCT Total # of Minutes Spent Total Time Spent with Patient: Total time spent is greater than 50% in coordination of care (as documented) at patient's floor/unit and/or counseling patient: Coding Level of Care Code 52818 SUB INP/OBS CARE 2/35MIN Diagnoses Bacteremia R78.81 Diverticulitis of colon with perforation K57.20 Fever R50.9 BPH NOS w ur obs/LUTS N40.1 Chronic ITP (idiopathic thrombocytopenia) D69.3 Hypertension I10 CAD (coronary artery disease) I25.119 Associated angina: with unspecified angina Coronary Disease-Associated Artery/Lesion type: unspecified vessel or lesion type [place] vs. transplanted heart: [place] heart Rigors R68.89 Time Spent (min) 35 (7) CAD (coronary artery disease) Associated angina: with unspecified angina Coronary Disease-Associated Artery/Lesion type: unspecified vessel or lesion type [place] vs. transplanted heart: [place] heart Qualified Code(s): I25.119 - Atherosclerotic heart disease of [place] coronary artery with unspecified angina pectoris
--- NOTE | 2023-10-02 13:17 | Infectious Disease Progress Nt ---
Date of Service October 02, 2023 Assessment & Plan (1) Chronic cholecystitis with calculus: (2) Sepsis: Plan This is an 83-year-old man with a past medical history of CAD, LUTS, hypertension, ITP status post colectomy, recently admitted to [facility] for aspiration pneumonia presents on 09/28 with fever, chills, rigors. He denies rash, headache, vision changes, shortness of breath, chest pain, change in urinary habits, change in bowel habits. He does have mild abdominal pain. In the last few days he played golf and drove to [place]. He developed acute chills and shivering. Denies any triggering events. He denies any sick contacts. In the ED he is afebrile but tachycardic. Labs: WBC 6.64-->21.97-->13.99, BUN 24, creatinine 1.22 lactate 1.4, Lyme screen negative, respiratory viral pattern negative. Urinalysis positive nitrites, 6-10 WBCs blood culture with gram- negative rods. Gram-negative rods identified as Bacteroides fragilis on BC ID. Chest x-ray with no acute process. He is currently on Zosyn. ID consulted for gram-negative bacteremia Micro BC 09/28 GNR 2/4 bottles - anaerobe Abx zosyn 09/28- ongoing Ceftriaxone 09/28 # GNR Bacteremia ( bacteroides sp per BCID PCR) # LLQ TTP # H/O BL hip replacement # Cipro Side effect tendon rupture #Sulfa allergy - hives Discussion-Bacteroides bacteremia in setting of LLQ on exam likely from perforated diverticulum with a small abscess and regional pneumoperitoneum seen on ctap. He had no urinary symptoms, bacteriuria. No oral lesions, No evidence of active infection at B/L hips. Also noted on CTAP to have unchanged retroperitoneal and iliac lymphadenopathy, perinephric nodules, and abnormality of the gallbladder and gallbladder fossa. HE is afebrile and HDS. WBC elevated at 12.96 but decreased Recs Will switch Zosyn to Unasyn 3 .5 g iv q8 ( cr cl 38.5) which should cover bacteroides and other GI yolande. Follow up GNR ID and sensi on cx Surgery eval given diverticulum perforation with abcess/ pneumoperitoneuem on CTAP ID will continue to follow Na Longoria MD, MPH Infectious Disease [facility], [facility] Call [phone] with questions. Admission and Anticipated Discharge Date Admission Date: October 01, 2023 Subjective Subsequent visit was provided via telemedicine using two-way real-time interactive telecommunication between the patient and the telemedicine provider. For the duration of the visit, the provider was performing the assessment from a different facility than the patient. This includesuse of bluetooth stet hoscope forauscultationperformed by the telepresenter that the telemedicine provider can hear if described in the physical exam. Automotive Warranty Administrator contact information: Please call [facility] Call Center [phone]. (Phone Number For Physician Use Only) After establishing a telemedicine visit, patient was: Patient was verified with two unique identifiers Time Spent with Patient: Subsequent => 35 min No abdominal pain CTAP with a perforated diverticulum with a small abscess and regional pneumo peritoneum. Afebrile WBC 12.96, cr 1.40 Physical Exam Physical Exam: Gen- NAD, laying in bed Neck - Supple HEENT - anicteric sclera, fair dentition,some missing teeth No lesions,ulcers, Clear pharynx Lungs- No increased work of breathing Abdomen- soft,no LLQ tenderness today - No suprapubic tenderness, No CVA tenderness Ext- No edema MSK- No TTP at BL hip Skin- no lesions, rash or wounds Neuro- AAO times 3 Psych- Normal mood, cooperative Results & Data Vital Signs (Past 12 Hours) Vital Signs Temp Pulse Pulse Resp BP BP Pulse Ox 10/02/23 11:13 36.7 C 81 17 146/80 H 97 10/02/23 07:19 36.6 C 65 17 148/79 H 95 10/02/23 07:00 10/02/23 06:59 79 10/02/23 02:22 37.1 C 75 18 124/65 97 O2 Del Method 10/02/23 11:13 Room Air 10/02/23 07:19 Room Air 10/02/23 07:00 Room Air 10/02/23 06:59 10/02/23 02:22 Room Air Laboratory Results Short CBC 10/02/23 Range/Units 05:24 WBC 12.96 H (4.8-10.8) K/ul Hgb 11.2 L (14.0-18.0) g/dl Hct 34.0 L (42.0-52.0) % Plt Count (130-400) K/uL BMP 10/02/23 05:24 Sodium 138 Potassium 3.8 Chloride 108 H Carbon Dioxide 23 BUN 18 Creatinine 1.40 Glucose 93 Calcium 9.1 Liver Function 10/02/23 Range/Units 05:24 Total Bilirubin 0.7 (0.2-1.0) mg/dl AST 33 (13-39) U/L ALT 38 (7-52) U/L Alkaline Phosphatase 52 (34-104) U/L Albumin 3.2 L (3.4-5.0) gm/dl Diagnostic Findings Microbiology 09/29/23 20:22 Blood Aerobic Blood Culture - Preliminary No growth in Aerobic bottle after 48 hours. 09/29/23 20:22 Blood Anaerobic Blood Culture - Preliminary Probable slim gram neg bacilli 09/29/23 19:55 Blood Aerobic Blood Culture - Preliminary No growth in Aerobic bottle after 48 hours. 09/29/23 19:55 Blood Anaerobic Blood Culture - Preliminary Probable slim gram neg bacilli Chest X-Ray 09/29/23 18:56 XR chest 1V not portable HISTORY: 83 years-old Male tachycardia acute chest pain with tachycardia COMPARISON: 09/13/2023 TECHNIQUE: AP view of the chest FINDINGS: Cardiac silhouette is enlarged. Coronary arterial stent. No pneumothorax, pleural effusion or airspace consolidation. Bones appear grossly intact. IMPRESSION: No acute process. ACT 112: Negative or not required by law. The above report was generated using voice recognition software. It may contain grammatical, syntax or spelling errors. Electronically signed by: Jonn Chaney M.D. 09/30/2023 8:04 AM Abdomen/Pelvis CT 10/01/23 15:37 CT abd pelvis wo con CLINICAL HISTORY: source of bacteremia TECHNIQUE: Helical axial images of the abdomen and pelvis were obtained. Automated dose lowering techniques and/or adjustment according to patient size were utilized for this exam. This exam was performed without intravenous contrast. CT DOSE: 1153.83 mGy.cm COMPARISON: Comparison is made to CT abdomen pelvis 07/18/2023 FINDINGS: Lower chest: Bibasilar atelectasis versus scarring is seen. Liver: Unremarkable. No focal lesions are seen. Gallbladder and biliary tree: Redemonstration of complex appearance of the gallbladder with possible involvement of the adjacent liver, less well evaluated compared to prior exam due to noncontrast technique. No intra- or extrahepatic biliary ductal dilation. Pancreas: Unremarkable, no focal lesions. Spleen: Patient is status post splenectomy. Adrenals: Unremarkable. Kidneys and ureters: Renal cysts are seen bilaterally with bilateral perinephric stranding. Bladder: Unremarkable. Reproductive organs: Unremarkable. Bowel: There are numerous diverticula. There is fat stranding about a superiorly oriented diverticulum with some localized regional gas and an adjacent irregular gas and fluid collection measuring 11 mm in diameter. Lymph nodes Retroperitoneal: Retroperitoneal lymph nodes measure up to 11 mm. Pelvic: Bilateral prominent pelvic lymph nodes are unchanged from prior exam measuring up to 15 mm on the left. Mesenteric: Unremarkable. Peritoneum: Gas and fluid collection is seen in the left lower quadrant adjacent to diverticula. There is a small focus of pneumoperitoneum immediately and dependent to this lesion. Is soft tissue nodularity is unchanged from prior exam. Vessels: Atherosclerotic calcifications are seen. Infrarenal aortic aneurysm measuring up to 32 mm, unchanged from prior exam. Abdominal wall: Unremarkable. Bones: Degenerative changes in the visualized spine. IMPRESSION: 1. Findings are compatible with a perforated diverticulum with a small abscess and regional pneumoperitoneum. 2. Overall no significant change in retroperitoneal and iliac lymphadenopathy, perinephric nodules, and abnormality of the gallbladder and gallbladder fossa. ACT 112: Negative or not required by law. Electronically signed by: Felipe Vences M.D. 10/01/2023 7:56 PM Medications Administered Home Medications Medication Instructions Recorded Confirmed Last Taken acetaminophen 500 mg tablet 1,000 mg PO Q6H PRN Pain 02/23/19 09/29/23 09/29/23 (Tylenol Extra Strength) aspirin 81 mg tablet,delayed 81 mg PO QAM #0 tabs 02/25/19 09/29/23 09/29/23 09:00 release (Ecotrin Low Strength) metoprolol succinate 50 mg 50 mg PO QAM 04/09/19 09/29/23 09/29/23 10:00 tablet,extended release 24 hr nitroglycerin 0.4 mg sublingual 0.4 mg sublingual UD PRN chest 01/01/20 09/29/23 07/14/21 tablet (Nitrostat) pain #30 tabs losartan 100 mg tablet 100 mg PO QAM 11/04/2709/29/23 09/29/23 10:00 atorvastatin 80 mg tablet 80 mg PO HS #90 tabs 04/03/23 09/29/23 09/28/23 20:00 ticagrelor 60 mg tablet (Brilinta) 60 mg PO BID #180 tabs 09/10/23 09/29/23 09/29/23 10:00 tobramycin 0.3 %-dexamethasone 0.1 1 drp ophthalmic (eye) TID 09/13/23 09/29/23 09/29/23 07:00 % eye drops,suspension amlodipine 5 mg tablet 5 mg PO HS #90 tabs 09/25/23 09/29/23 09/28/23 20:00 vitamin B complex 1 tab PO DAILY 09/29/23 09/29/23 09/29/23 07:00 Active Medications Generic Name Dose Route Start Last Admin Trade Name Freq PRN Reason Stop Dose Admin Aspirin 81 mg 09/30/23 09:00 10/02/23 08:45 Aspirin 81 Mg Ectab PO 10/30/23 08:59 81 mg QAM ERICK Administration Atorvastatin Calcium 80 mg 09/29/23 23:28 10/01/23 20:45 Atorvastatin 40 Mg Tab PO 10/29/23 23:27 80 mg HS ERICK Administration Piperacillin Sod/Tazobactam 100 mls @ 25 mls/hr 09/30/23 04:00 10/02/23 11:45 Sod 4.5 gm/ Dextrose IV 10/09/23 03:59 25 mls/hr Q8H ERICK Administration Protocol Metoprolol Succinate 50 mg 09/30/23 09:00 10/02/23 08:45 Metoprolol Succ 50mg Ext Rel Tab PO 10/30/23 08:59 50 mg QAM ERICK Administration Ticagrelor 60 mg 09/30/23 21:00 10/02/23 08:45 Ticagrelor 60 Mg Tab [Patient Own Med] PO 10/30/23 20:59 60 mg BID ERICK Administration Tobramycin/Dexamethasone 1 drops 09/29/23 23:28 10/02/23 08:46 Tobramycin/Dexamethasone Oph Susp 2.5 Ml Btl OP 10/29/23 23:27 1 drops TID ERICK Administration (2) Sepsis Sepsis acute organ dysfunction status: unspecified Sepsis type: sepsis due to unspecified organism Qualified Code(s): A41.9 - Sepsis, unspecified organism
[2023-10-02] MEDS: diphenhydrAMINE Capsule 25 MG CAP PO PRN (14:06)
[2023-10-02] MEDS: AMPICILLIN/SULBACTAM SOD 3,000 MG in SODIUM CHLOR 0.9% MINI-B 100 ML IV SCH (14:46)
[2023-10-03 07:15] LABS: BUN Creatinine Ratio 11.8 (10-20); Calcium 8.6 mg/dl (8.6-10.3); Creatinine Clr Calc Pharmacy 39.1 ml/min; Est GFR (African American) 59.7 ml/min; Est GFR (Non-African American) 51.5 ml/min
[2023-10-03 07:29] LABS: Hematocrit (blood only) 33.7 % (42.0-52.0); Hemoglobin 11.1 g/dl (14.0-18.0); Mean Corpuscular Hemoglobin 28.2 pg (25.0-34.0); Mean Corpuscular Hgb Conc 32.9 g/dL (32.0-36.0); Mean Corpuscular Volume 85.8 fL (80.0-100.0); Nucleated RBC # (auto) 0.04 K/uL (0.00-0.12); Nucleated RBC % (auto) 0.3 %; RDW Coefficient of Variation 19.9 % (11.5-14.5); RDW Standard Deviation 62.4 fL (36.4-46.3); Red Blood Count 3.93 M/uL (4.70-6.10); White Blood Count 12.16 K/ul (4.8-10.8)
--- NOTE | 2023-10-03 09:32 | Surgery Consultation ---
Date of Consultation October 03, 2023 Assessment & Plan (1) Diverticulitis of colon with perforation: CT images and results were personally viewed and interpreted by myself He is doing well clinically and tolerating a regular diet without abdominal pain He can be discharged from a surgical standpoint and follow up with his colorectal surgeon upon discharge 2 weeks of PO ABX upon discharge Surgery will sign off at this time, please call with any questions or concerns History of Present Illness Reason for Consultation: Diverticulitis Attending Physician: Edu Pedersen MD History of Present Illness This is an 83 yo male who was admitted a few days ago with chills and was found to have diverticulitis with contained perforation. He states he did have mild LLQ abdominal pain, sharp in nature without radiation, but this has not resolved. He denies any fevers. Denies any constipation or diarrhea. He had one other episode of diverticulitis in the past which required an IR drain about 3 years ago. He is established with colorectal surgery in [place]. Allergies Allergy/AdvReac Type Severity Reaction Status Date / Time ciprofloxacin Allergy Unknown "Muscle Verified 09/29/23 19:26 problems, split tendons" sulfamethoxazole Allergy Unknown Hives, Verified 09/29/23 19:26 "interferes with immune system" trimethoprim Allergy Unknown Hives, Verified 09/29/23 19:26 "interferes with immune system" morphine AdvReac Unknown Hallucinati Verified 09/29/23 19:26 ons oxycodone AdvReac Unknown Nausea Verified 09/29/23 19:26 Home Medications Medication Instructions Recorded Confirmed Type acetaminophen 500 mg tablet 1,000 mg PO Q6H PRN Pain 02/23/19 09/29/23 History (Tylenol Extra Strength) aspirin 81 mg tablet,delayed 81 mg PO QAM #0 tabs 02/25/19 09/29/23 Rx release (Ecotrin Low Strength) metoprolol succinate 50 mg 50 mg PO QAM 04/09/19 09/29/23 History tablet,extended release 24 hr nitroglycerin 0.4 mg sublingual 0.4 mg sublingual UD PRN chest 01/01/20 09/29/23 Rx tablet (Nitrostat) pain #30 tabs losartan 100 mg tablet 100 mg PO QAM 01/04/23 09/29/23 History atorvastatin 80 mg tablet 80 mg PO HS #90 tabs 04/03/23 09/29/23 Rx ticagrelor 60 mg tablet (Brilinta) 60 mg PO BID #180 tabs 09/10/23 09/29/23 Rx tobramycin 0.3 %-dexamethasone 0.1 1 drp ophthalmic (eye) TID 09/13/23 09/29/23 History % eye drops,suspension amlodipine 5 mg tablet 5 mg PO HS #90 tabs 09/25/23 09/29/23 Rx vitamin B complex 1 tab PO DAILY 09/29/23 09/29/23 History Patient History Medical History Chronic anemia History of kidney stones Diverticulitis of colon with perforation 2019, found incidentally on preop CTS prior to splenectomy. Micro-perforation with free air in abdomen. Admitted to hospital for evaluation. Counce non- surgical. Returned to ED a few days after discharge with BRBPR, surgical intervention considered, but pt ultimately transferred to [facility] and had abdominal drainage catheter placed. No recent issues. Left pontine stroke 2019. Per neurology consult, treatment of ITP with IVIG likely contributed. No residual deficits. Coronary stent thrombosis Presented with NSTEMI 02/23/19 and had single TONIA to Cx. Returned with chest pain 02/28/12 and found to have thrombosed stent, required additional PCI x 4. Chronic ITP (idiopathic thrombocytopenia) Controlled, hx IVIG treatments in the past Mitral regurgitation Non-ST elevation (NSTEMI) myocardial infarction 02/2019 > stents x5 total Rheumatoid arthritis "Hx between ages 14-20 years old.. now resolved" per patient BPH (benign prostatic hyperplasia) Lymphoma Dx 2016, "low grade" Non-hodgkins Hypertension Surgical History Hx of transurethral resection of prostate History of cataract surgery R/L History of surgery Abdominal drain placed [facility] > had for 10 weeks prior splenectomy (2019) [place] [facility] [place] of cardiac cath 02/2019 > stents x5 total History of total hip arthroplasty R/L History of cystoscopy + stone extraction History of lithotripsy History of colonoscopy History of appendectomy History of tooth extraction History of tonsillectomy Family History Father Cancer Other Hypertension Kidney disease No family history of adverse response to anesthesia Social History Smoking Status: Never smoker Tobacco Type: Cigarettes Second Hand Exposure: No; Do You Dip or Chew Tobacco: No; Hx Alcohol Use: Yes Alcohol type: wine Hx Substance Use: No Preferred Language: Ukrainian Communication Ability: Effective Visual Impairment: No Limitations Steel Plate 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 Required: No Beliefs That Will Affect Care: None marital status: Current Living Situation: Alone Current Living Situation Comment: [place] Feels Safe at Home: Yes Safety Concerns: Feels Safe At This Time Assistive Devices: Glasses and Hearing Aid - Bilateral Review of Systems Constitutional: no fever and no chills Eyes: no blind spots and no worsening vision Ear, Nose, Mouth, Throat: no ear pain and no hearing loss Respiratory: no cough and no dyspnea Cardiovascular: no chest pain and no dyspnea on exertion Gastrointestinal: no abdominal pain, no nausea, no vomiting and no constipation Genitourinary: no dysuria or no urinary incontinence Musculoskeletal: no back pain and no neck pain Integumentary: no acne, no skin ulcer and no sores Neurologic: no gait abnormality and no numbness Psychiatric: no behavioral changes and no depression Hematologic / Lymphatic: no easy bleeding and no easy bruising Physical Exam Constitutional: WD/WN, vitals as above Eyes: PERRL, conjunctivae normal, anicteric sclerae ENMT: external ear and nose normal, oropharynx normal Neck: trachea midline, no thyromegaly Respiratory: normal respiratory effort, lungs clear to auscultation Cardiovascular: RRR, no murmur, no edema Gastrointestinal (Abdomen): Inspection/Auscultation: abdomen normal to inspection; abdomen not distended Percussion/Palpation: abdomen soft; abdomen nontender and no guarding Musculoskeletal: no cyanosis or clubbing, extremities motor strength 5/5 Skin: no rashes, warm and dry Neurologic: PERRL, EOMI, accommodation nl, no face palsy, no dysarthria Psychiatric: A+Ox3, euthymic affect Results & Data Vital Signs (Past 12 Hours) Vital Signs Temp Pulse Pulse Resp BP BP Pulse Ox 10/03/23 07:57 36.6 C 77 16 157/85 H 96 10/03/23 07:15 73 10/03/23 02:29 37.3 C 71 16 151/75 H 96 10/02/23 23:52 70 10/02/23 22:06 37.3 C 73 16 152/78 H 96 O2 Del Method 10/03/23 07:57 Room Air 10/03/23 07:15 10/03/23 02:29 Room Air 10/02/23 23:52 10/02/23 22:06 Room Air PG Care Time/CCT Total # of Minutes Spent Total Time Spent with Patient: Total time spent is greater than 50% in coordination of care (as documented) at patient's floor/unit and/or counseling patient: Coding Level of Care Code 36349 INT INP/OBS CARE MIN Diagnoses Diverticulitis of colon with perforation K57.20
[2023-10-03] MEDS: AMPICILLIN/SULBACTAM SOD 3,000 MG in SODIUM CHLOR 0.9% MINI-B 100 ML IV SCH (12:16)
--- NOTE | 2023-10-03 12:39 | Hospitalist Progress Note ---
Date of Service October 03, 2023 Assessment & Plan (1) Bacteremia: Plan: Gram negative bacteremia due to perforated diverticulum with abscess Patient admitted to the hospital on account of fever Blood cultures growing gram-negative bacilli, full characterization pending Source is likely perforated diverticulitis with abscess as seen on CT abdomen and pelvis 2D echo did not show any evidence of vegetation Antibiotics changed to IV Unasyn by infectious diseases. Appreciate recommendations. (2) Diverticulitis of colon with perforation: Plan: Patient has a history of perforated diverticulitis in the past Was concerned that being on steroids may aggravate his perforated diverticulitis as it happened before CT abdomen and pelvis confirmed evidence of diverticulitis with perforation and abscess Surgery recommends no surgical intervention for now Continue antibiotics. (3) Fever: Plan: Now resolved Likely due to gram-negative bacilli bacteremia No fevers in the past 24 hours (4) BPH NOS w ur obs/LUTS: Plan: Will follow UA once obtained Monitor for retention (5) Chronic ITP (idiopathic thrombocytopenia): Plan: Platelet count currently stable Monitor daily CBC (6) Hypertension: Plan: Currently stable Will continue metoprolol but hold amlodipine and losartan for now to avoid hypotension in case he has a true infection (7) CAD (coronary artery disease): Plan: No recent chest pain Continue aspirin, Brilinta, and statin (8) Rigors: Plan: See fever Plan Continue hospitalization Full code Admission and Anticipated Discharge Date Admission Date: October 01, 2023 Subjective Patient seen and examined, states abdominal pain is much better Review of Systems Review of Systems: All systems reviewed are negative, apart from the ones contained in the history. Physical Exam Physical Exam: The patient is awake, alert and oriented 3, well developed and well nourished, normocephalic and atraumatic, lying in bed and in no acute distress. HEENT--PERRL, EOMI, mucous membranes and oropharynx mildly dry Neck--supple. No JVD. No bruits. Thyroid normal, trachea midline, no adenopathy. Heart--normal S1 and S2. No murmurs, rubs or gallops. Lungs--clear bilaterally, no respiratory distress, no accessory muscle use. Abdomen--normal bowel sounds and soft. Extremities--no cyanosis or clubbing. No edema. Dermatologic--normal skin turgor, normal color, no abnormal lymph nodes, no rash. Neurologic--cranial nerves II through XII grossly intact. Rheumatologic--normal range of motion. Psychiatric--normal affect. Results & Data Results & Data Vital Signs (Past 12 Hours) Vital Signs Temp Pulse Pulse Resp BP BP Pulse Ox 10/03/23 11:36 97.7 F 88 18 126/87 96 10/03/23 08:00 10/03/23 07:57 97.9 F 77 16 157/85 H 96 10/03/23 07:15 73 10/03/23 02:29 99.1 F 71 16 151/75 H 96 O2 Del Method 10/03/23 11:36 Room Air 10/03/23 08:00 Room Air 10/03/23 07:57 Room Air 10/03/23 07:15 10/03/23 02:29 Room Air PG Care Time/CCT Total # of Minutes Spent Total Time Spent with Patient: Total time spent is greater than 50% in coordination of care (as documented) at patient's floor/unit and/or counseling patient: Coding Level of Care Code 54433 SUB INP/OBS CARE 2/35MIN Diagnoses Bacteremia R78.81 Diverticulitis of colon with perforation K57.20 Fever R50.9 BPH NOS w ur obs/LUTS N40.1 Chronic ITP (idiopathic thrombocytopenia) D69.3 Hypertension I10 CAD (coronary artery disease) I25.119 Associated angina: with unspecified angina Coronary Disease-Associated Artery/Lesion type: unspecified vessel or lesion type [place] vs. transplanted heart: [place] heart Rigors R68.89 Time Spent (min) 35 (7) CAD (coronary artery disease) Associated angina: with unspecified angina Coronary Disease-Associated Artery/Lesion type: unspecified vessel or lesion type [place] vs. transplanted h eart: [place] heart Qualified Code(s): I25.119 - Atherosclerotic heart disease of [place] coronary artery with unspecified angina pectoris
--- NOTE | 2023-10-03 13:03 | Infectious Disease Progress Nt ---
Date of Service October 03, 2023 Assessment & Plan (1) Chronic cholecystitis with calculus: (2) Sepsis: Plan This is an 83-year-old man with a past medical history of CAD, LUTS, hypertension, ITP status post splenectomy, diverticulitis with perforation in 2019, s/p abdominal drainage catheter, recently admitted to [facility] for aspiration pneumonia presents on 09/28 with fever, chills, rigors. He denies rash, headache, vision changes, shortness of breath, chest pain, change in urinary habits, change in bowel habits. He does have mild abdominal pain. In the last few days he played golf and drove to [place]. He developed acute chills and shivering. Denies any triggering events. He denies any sick contacts. In the ED he is afebrile but tachycardic. Labs: WBC 6.64-->21.97-->13.99, BUN 24, creatinine 1.22 lactate 1.4, Lyme screen negative, respiratory viral panel negative. Urinalysis w/ positive nitrites, 6-10 WBCs. Blood culture with gram- negative rods. Gram-negative rods identified as Bacteroides fragilis on BC ID. Chest x-ray with no acute process. He was started on Zosyn. ID consulted for gram-negative bacteremia Micro BC 09/28 GNR 2/4 bottles ( anaerobic) Abx zosyn 09/28- 10/01 Ceftriaxone 09/28 Unasyn 10/01- ongoing # GNR Bacteremia ( bacteroides sp per BCID PCR) #Diverticulitis with Perforated Diverticulum, small abscess # H/O BL hip replacement # Cipro Side effect tendon rupture #Sulfa allergy - hives Discussion-Bacteroides bacteremia in setting of LLQ on exam likely from perforated diverticulum with a small abscess and regional pneumoperitoneum seen on ctap. He had no urinary symptoms, bacteriuria. No oral lesions, No evidence of active infection at B/L hips. Also noted on CTAP to have unchanged retroperitoneal and iliac lymphadenopathy, perinephric nodules, and abnormality of the gallbladder and gallbladder fossa. HE is afebrile and HDS. WBC elevated at 12.16 but decreased. Surgical eval appreciated. No surgical intervention at this time Recs Continue Unasyn 3 .5 g iv q8 ( cr cl 39) which should cover bacteroides and other GI yolande. Follow up GNR ID and sensi on cx Anticipate 14 days of therapy. If Bacteroides on BC than can likely switch to cefpodoxime 400 mg po q12 h ( cr cl 39) and flagyl 500 po q12 on DC. May be longer if continued abscess on repeat CTAP . Monitor WBC ID will continue to follow Na Longoria MD, MPH Infectious Disease ID [facility], ID Division Call [phone] with questions. Admission and Anticipated Discharge Date Admission Date: October 01, 2023 Subjective This patient recommendation is based on a telemedicine consult request which was completed asynchronously through chart review and information provided by the primary physician. The patient was not seen or examined today. The evaluation is consultative in nature and all patient care and treatment decisions can either be accepted or rejected by the patient's primary hospital-based treating physician using their own independent medical judgment for their patient. Time Spent Reviewing Chart: 21 - 30 minutes BC GNR pending ID Surgical eval appreciated- surgical intervention. WBC 12.16 Results & Data Vital Signs (Past 12 Hours) Vital Signs Temp Pulse Pulse Resp BP BP Pulse Ox 10/03/23 11:36 36.5 C 88 18 126/87 96 10/03/23 08:00 10/03/23 07:57 36.6 C 77 16 157/85 H 96 10/03/23 07:15 73 10/03/23 02:29 37.3 C 71 16 151/75 H 96 O2 Del Method 10/03/23 11:36 Room Air 10/03/23 08:00 Room Air 10/03/23 07:57 Room Air 10/03/23 07:15 10/03/23 02:29 Room Air Laboratory Results Short CBC 10/03/23 Range/Units 06:02 WBC 12.16 H (4.8-10.8) K/ul Hgb 11.1 L (14.0-18.0) g/dl Hct 33.7 L (42.0-52.0) % Plt Count (130-400) K/uL BMP 10/03/23 06:02 Sodium 140 Potassium 4.0 Chloride 109 H Carbon Dioxide 25 BUN 15 Creatinine 1.27 Glucose 91 Calcium 8.6 Diagnostic Findings Microbiology 10/02/23 07:37 Sputum, Expectorated Gram Stain - Final 10/02/23 07:37 Sputum, Expectorated Sputum Culture - Preliminary Moderate normal yolande present, final report to follow. 09/29/23 20:22 Blood Aerobic Blood Culture - Preliminary No growth in Aerobic bottle after 48 hours. 09/29/23 20:22 Blood Anaerobic Blood Culture - Preliminary Probable slim gram neg bacilli 09/29/23 19:55 Blood Aerobic Blood Culture - Preliminary No growth in Aerobic bottle after 48 hours. 09/29/23 19:55 Blood Anaerobic Blood Culture - Preliminary Probable slim gram neg bacilli Abdomen/Pelvis CT 10/01/23 15:37 CT abd pelvis wo con CLINICAL HISTORY: source of bacteremia TECHNIQUE: Helical axial images of the abdomen and pelvis were obtained. Automated dose lowering techniques and/or adjustment according to patient size were utilized for this exam. This exam was performed without intravenous contrast. CT DOSE: 1153.83 mGy.cm COMPARISON: Comparison is made to CT abdomen pelvis 07/18/2023 FINDINGS: Lower chest: Bibasilar atelectasis versus scarring is seen. Liver: Unremarkable. No focal lesions are seen. Gallbladder and biliary tree: Redemonstration of complex appearance of the gallbladder with possible involvement of the adjacent liver, less well evaluated compared to prior exam due to noncontrast technique. No intra- or extrahepatic biliary ductal dilation. Pancreas: Unremarkable, no focal lesions. Spleen: Patient is status post splenectomy. Adrenals: Unremarkable. Kidneys and ureters: Renal cysts are seen bilaterally with bilateral perinephric stranding. Bladder: Unremarkable. Reproductive organs: Unremarkable. Bowel: There are numerous diverticula. There is fat stranding about a superiorly oriented diverticulum with some localized regional gas and an adjacent irregular gas and fluid collection measuring 11 mm in diameter. Lymph nodes Retroperitoneal: Retroperitoneal lymph nodes measure up to 11 mm. Pelvic: Bilateral prominent pelvic lymph nodes are unchanged from prior exam measuring up to 15 mm on the left. Mesenteric: Unremarkable. Peritoneum: Gas and fluid collection is seen in the left lower quadrant adjacent to diverticula. There is a small focus of pneumoperitoneum immediately and dependent to this lesion. Is soft tissue nodularity is unchanged from prior exam. Vessels: Atherosclerotic calcifications are seen. Infrarenal aortic aneurysm measuring up to 32 mm, unchanged from prior exam. Abdominal wall: Unremarkable. Bones: Degenerative changes in the visualized spine. IMPRESSION: 1. Findings are compatible with a perforated diverticulum with a small abscess and regional pneumoperitoneum. 2. Overall no significant change in retroperitoneal and iliac lymphadenopathy, perinephric nodules, and abnormality of the gallbladder and gallbladder fossa. ACT 112: Negative or not required by law. Electronically signed by: Felipe Vences M.D. 10/01/2023 7:56 PM Medications Administered Home Medications Medication Instructions Recorded Confirmed Last Taken acetaminophen 500 mg tablet 1,000 mg PO Q6H PRN Pain 02/23/19 09/29/23 09/29/23 (Tylenol Extra Strength) aspirin 81 mg tablet,delayed 81 mg PO QAM #0 tabs 02/25/19 09/29/23 09/29/23 09:00 release (Ecotrin Low Strength) metoprolol succinate 50 mg 50 mg PO QAM 04/09/19 09/29/23 09/29/23 10:00 tablet,extended release 24 hr nitroglycerin 0.4 mg sublingual 0.4 mg sublingual UD PRN chest 01/01/20 09/29/23 07/14/21 tablet (Nitrostat) pain #30 tabs losartan 100 mg tablet 100 mg PO QAM 01/04/23 09/29/23 09/29/23 10:00 atorvastatin 80 mg tablet 80 mg PO HS #90 tabs 04/03/23 09/29/23 09/28/23 20:00 ticagrelor 60 mg tablet (Brilinta) 60 mg PO BID #180 tabs 09/10/23 09/29/23 09/29/23 10:00 tobramycin 0.3 %-dexamethasone 0.1 1 drp ophthalmic (eye) TID 09/13/23 09/29/23 09/29/23 07:00 % eye drops,suspension amlodipine 5 mg tablet 5 mg PO HS #90 tabs 09/25/23 09/29/23 09/28/23 20:00 vitamin B complex 1 tab PO DAILY 09/29/23 09/29/23 09/29/23 07:00 Active Medications Generic Name Dose Route Start Last Admin Trade Name Freq PRN Reason Stop Dose Admin Aspirin 81 mg 09/30/23 09:00 10/03/23 08:26 Aspirin 81 Mg Ectab PO 10/30/23 08:59 81 mg QAM ERICK Administration Atorvastatin Calcium 80 mg 09/29/23 23:28 10/02/23 20:32 Atorvastatin 40 Mg Tab PO 08/26/24 23:27 80 mg HS ERICK Administration Diphenhydramine HCl 25 mg 10/02/23 13:48 10/02/23 14:06 Diphenhydramine Capsule 25 Mg Cap PO 11/01/23 13:47 25 mg Q6 PRN Administration Rash Ampicillin Sodium/Sulbactam 100 mls @ 100 mls/hr 10/03/23 12:00 10/03/23 12:16 Sodium 3,000 mg/ Sodium IV 10/13/23 23:59 100 mls/hr Chloride Q6H ERICK Administration Protocol Metoprolol Succinate 50 mg 09/30/23 09:00 10/03/23 08:26 Metoprolol Succ 50mg Ext Rel Tab PO 10/30/23 08:59 50 mg QAM ERICK Administration Ticagrelor 60 mg 09/30/23 21:00 10/03/23 08:26 Ticagrelor 60 Mg Tab [Patient Own Med] PO 10/30/23 20:59 60 mg BID ERICK Administration Tobramycin/Dexamethasone 1 drops 09/29/23 23:28 10/03/23 08:26 Tobramycin/Dexamethasone Oph Susp 2.5 Ml Btl OP 10/29/23 23:27 1 drops TID ERICK Administration (2) Sepsis Sepsis acute organ dysfunction status: unspecified Sepsis type: sepsis due to unspecified organism Qualified Code(s): A41.9 - Sepsis, unspecified organism
[2023-10-04 05:17] LABS: Babesia microti DNA Not Detected (Not Detected)
[2023-10-04 07:43] LABS: Hematocrit (blood only) 33.7 % (42.0-52.0); Mean Corpuscular Hemoglobin 28.4 pg (25.0-34.0); Mean Corpuscular Hgb Conc 32.6 g/dL (32.0-36.0); Mean Corpuscular Volume 86.9 fL (80.0-100.0); Nucleated RBC # (auto) 0.04 K/uL (0.00-0.12); Nucleated RBC % (auto) 0.3 %; RDW Coefficient of Variation 19.9 % (11.5-14.5); RDW Standard Deviation 62.5 fL (36.4-46.3); Red Blood Count 3.88 M/uL (4.70-6.10); White Blood Count 12.46 K/ul (4.8-10.8)
[2023-10-04 07:50] LABS: BUN Creatinine Ratio 15.2 (10-20); Calcium 8.4 mg/dl (8.6-10.3); Creatinine Clr Calc Pharmacy 44.3 ml/min; Est GFR (African American) 69.5 ml/min; Potassium 3.6 mmol/L (3.5-5.1)
--- NOTE | 2023-10-04 12:11 | Hospitalist Progress Note ---
Date of Service October 04, 2023 Assessment & Plan (1) Bacteremia: Plan: Gram negative bacteremia due to perforated diverticulum with abscess Patient admitted to the hospital on account of fever Blood cultures growing gram-negative bacilli, full characterization And sensitivities pending Source is likely perforated diverticulitis with abscess as seen on CT abdomen and pelvis 2D echo did not show any evidence of vegetation Antibiotics changed to IV Unasyn by infectious diseases. Appreciate recommendations. (2) Diverticulitis of colon with perforation: Plan: Patient has a history of perforated diverticulitis in the past Was concerned that being on steroids may aggravate his perforated diverticulitis as it happened before CT abdomen and pelvis confirmed evidence of diverticulitis with perforation and abscess Surgery recommends no surgical intervention for now Continue antibiotics. (3) Fever: Plan: Now resolved Likely due to gram-negative bacilli bacteremia No fevers in the past 48 hours (4) BPH NOS w ur obs/LUTS: Plan: Will follow UA once obtained Monitor for retention (5) Chronic ITP (idiopathic thrombocytopenia): Plan: Platelet count currently stable Monitor daily CBC (6) Hypertension: Plan: Currently stable Will continue metoprolol but hold amlodipine and losartan for now to avoid hypotension in case he has a true infection (7) CAD (coronary artery disease): Plan: No recent chest pain Continue aspirin, Brilinta, and statin (8) Rigors: Plan: See fever Plan Continue hospitalization, Awaiting characterization of the cultures and sensitivities Full code Admission and Anticipated Discharge Date Admission Date: October 01, 2023 Subjective Patient seen and examined, feels overall better, no fevers or chills no abdominal pain. Tolerating diet Review of Systems Review of Systems: All systems reviewed are negative, apart from the ones contained in the history. Physical Exam Physical Exam: The patient is awake, alert and oriented 3, well developed and well nourished, normocephalic and atraumatic, lying in bed and in no acute distress. HEENT--PERRL, EOMI, mucous membranes and oropharynx mildly dry Neck--supple. No JVD. No bruits. Thyroid normal, trachea midline, no adenopathy. Heart--normal S1 and S2. No murmurs, rubs or gallops. Lungs--clear bilaterally, no respiratory distress, no accessory muscle use. Abdomen--normal bowel sounds and soft. Extremities--no cyanosis or clubbing. No edema. Dermatologic--normal skin turgor, normal color, no abnormal lymph nodes, no rash. Neurologic--cranial nerves II through XII grossly intact. Rheumatologic--normal range of motion. Psychiatric--normal affect. Results & Data Results & Data Vital Signs (Past 12 Hours) Vital Signs Temp Pulse Pulse Resp BP BP Pulse Ox 10/04/23 11:15 98.6 F 72 18 162/80 H 95 10/04/23 07:39 97.9 F 80 18 162/89 H 95 10/04/23 07:30 73 10/04/23 03:19 98.6 F 70 18 158/76 H 96 O2 Del Method 10/04/23 11:15 Room Air 10/04/23 07:39 Room Air 10/04/23 07:30 10/04/23 03:19 Room Air PG Care Time/CCT Total # of Minutes Spent Total Time Spent with Patient: Total time spent is greater than 50% in coordination of care (as documented) at patient's floor/unit and/or counseling patient: Coding Level of Care Code 66460 SUB INP/OBS CARE 2/35MIN Diagnoses Bacteremia R78.81 Diverticulitis of colon with perforation K57.20 Fever R50.9 BPH NOS w ur obs/LUTS N40.1 Chronic ITP (idiopathic thrombocytopenia) D69.3 Hypertension I10 CAD (coronary artery disease) I25.119 Associated angina: with unspecified angina Coronary Disease-Associated Artery/Lesion type: unspecified vessel or lesion type [place] vs. transplanted heart: [place] heart Rigors R68.89 Time Spent (min) 35 (7) CAD (coronary artery disease) Associated angina: with unspecified angina Coronary Disease-Associated Artery/Lesion type: unspecified vessel or lesion type [place] vs. transplanted heart: [place] heart Qualified Code(s): I25.119 - Atherosclerotic heart disease of [place] coronary artery with unspecified angina pectoris
--- NOTE | 2023-10-04 13:28 | Infectious Disease Progress Nt ---
Date of Service October 04, 2023 Assessment & Plan (1) Chronic cholecystitis with calculus: (2) Sepsis: Plan This is an 83-year-old man with a past medical history of CAD, LUTS, hypertension, ITP status post splenectomy, diverticulitis with perforation in 2019, s/p abdominal drainage catheter, recently admitted to [facility] for aspiration pneumonia presents on 09/28 with fever, chills, rigors. He denies rash, headache, vision changes, shortness of breath, chest pain, change in urinary habits, change in bowel habits. He does have mild abdominal pain. In the last few days he played golf and drove to [place]. He developed acute chills and shivering. Denies any triggering events. He denies any sick contacts. In the ED he is afebrile but tachycardic. Labs: WBC 6.64-->21.97-->13.99, BUN 24, creatinine 1.22 lactate 1.4, Lyme screen negative, respiratory viral panel negative. Urinalysis w/ positive nitrites, 6-10 WBCs. Blood culture with gram- negative rods. Gram-negative rods identified as Bacteroides fragilis on BC ID. Chest x-ray with no acute process. He was started on Zosyn. ID consulted for gram-negative bacteremia Micro BC 09/28 GNR 2/4 bottles ( anaerobic) PRELIM Abx zosyn 09/28- 10/01, 10/03- ongoing Ceftriaxone 09/28 Unasyn 10/01- 10/03 # GNR Bacteremia ( bacteroides sp per BCID PCR) #Diverticulitis with Perforated Diverticulum, small abscess # Leukocytosis # H/O BL hip replacement # Cipro Side effect tendon rupture #Sulfa allergy - hives Discussion-Bacteroides bacteremia in setting of LLQ on exam likely from perforated diverticulum with a small abscess and regional pneumoperitoneum seen on ctap. He had no urinary symptoms, bacteriuria. No oral lesions, No evidence of active infection at B/L hips. Also noted on CTAP to have unchanged retroperitoneal and iliac lymphadenopathy, perinephric nodules, and abnormality of the gallbladder and gallbladder fossa. HE is afebrile and HDS. WBC remains elevated on abx. LLQ pain resolved . Surgical eval appreciated. No surgical intervention at this time Recs -WBC remains elevated at 12.46, will change ABX back to broader GI coverage with Zosyn 4.5 g IV q8 and Discontinued Unasyn Anticipate at least 14 days of therapy if continued clinical improvement and abscess resolved on repeat CtAP. May be longer if continued abscess on repeat CTAP . Will continue IV abx for now in setting of continued leukocytosis -Follow up GNR ID and sensi on cx -Monitor WBC -Ordered Procal, crp follow up ID will continue to follow Na Longoria MD, MPH Infectious Disease [facility], ID Division Call [phone] with questions. Admission and Anticipated Discharge Date Admission Date: October 01, 2023 Subjective Subsequent visit was provided via telemedicine using two-way real-time interactive telecommunication between the patient and the telemedicine provider. For the duration of the visit, the provider was performing the assessment from a different facility than the patient. This includesuse of bluetooth stethoscope forauscultationperformed by the telepresenter that the telemedicine provider can hear if described in the physical exam. Proposal Manager contact information: Please call [facility] Call Center . (Phone Number For Physician Use Only) After establishing a telemedicine visit, patient was: Patient was verified with two unique identifiers Time Spent with Patient: Subsequent => 35 min BC GNR pending ID WBC remains elevated at 12.46 Physical Exam Physical Exam: Gen- NAD, laying in bed Neck - Supple HEENT - anicteric sclera, fair dentition,some missing teeth No lesions,ulcers, Clear pharynx Lungs- No increased work of breathing Abdomen- soft,no LLQ tenderness today - No suprapubic tenderness, No CVA tenderness Ext- No edema MSK- No TTP at BL hip Skin- no lesions, rash or wounds Neuro- AAO times 3 Psych- Normal mood, cooperative Results & Data Vital Signs (Past 12 Hours) Vital Signs Temp Pulse Pulse Resp BP BP Pulse Ox 10/04/23 11:15 37.0 C 72 18 162/80 H 95 10/04/23 07:39 36.6 C 80 18 162/89 H 95 10/04/23 07:30 73 10/04/23 03:19 37.0 C 70 18 158/76 H 96 O2 Del Method 10/04/23 11:15 Room Air 10/04/23 07:39 Room Air 10/04/23 07:30 08/01/24 03:19 Room Air Laboratory Results Short CBC 10/04/23 Range/Units 06:08 WBC 12.46 H (4.8-10.8) K/ul Hgb 11.0 L (14.0-18.0) g/dl Hct 33.7 L (42.0-52.0) % Plt Count (130-400) K/uL BMP 10/04/23 06:08 Sodium 139 Potassium 3.6 Chloride 110 H Carbon Dioxide 22 BUN 17 Creatinine 1.12 Glucose 85 Calcium 8.4 L Diagnostic Findings Microbiology 10/02/23 07:37 Sputum, Expectorated Gram Stain - Final 10/02/23 07:37 Sputum, Expectorated Sputum Culture - Final Moderate normal yolande. 09/29/23 20:22 Blood Aerobic Blood Culture - Preliminary No growth in Aerobic bottle after 48 hours. 09/29/23 20:22 Blood Anaerobic Blood Culture - Preliminary Probable slim gram neg bacilli 09/29/23 19:55 Blood Aerobic Blood Culture - Preliminary No growth in Aerobic bottle after 48 hours. 09/29/23 19:55 Blood Anaerobic Blood Culture - Preliminary Probable slim gram neg bacilli Abdomen/Pelvis CT 10/01/23 15:37 CT abd pelvis wo con CLINICAL HISTORY: source of bacteremia TECHNIQUE: Helical axial images of the abdomen and pelvis were obtained. Automated dose lowering techniques and/or adjustment according to patient size were utilized for this exam. This exam was performed without intravenous contrast. CT DOSE: 1153.83 mGy.cm COMPARISON: Comparison is made to CT abdomen pelvis 07/18/2023 FINDINGS: Lower chest: Bibasilar atelectasis versus scarring is seen. Liver: Unremarkable. No focal lesions are seen. Gallbladder and biliary tree: Redemonstration of complex appearance of the gallbladder with possible involvement of the adjacent liver, less well evaluated compared to prior exam due to noncontrast technique. No intra- or extrahepatic biliary ductal dilation. Pancreas: Unremarkable, no focal lesions. Spleen: Patient is status post splenectomy. Adrenals: Unremarkable. Kidneys and ureters: Renal cysts are seen bilaterally with bilateral perinephric stranding. Bladder: Unremarkable. Reproductive organs: Unremarkable. Bowel: There are numerous diverticula. There is fat stranding about a superiorly oriented diverticulum with some localized regional gas and an adjacent irregular gas and fluid collection measuring 11 mm in diameter. Lymph nodes Retroperitoneal: Retroperitoneal lymph nodes measure up to 11 mm. Pelvic: Bilateral prominent pelvic lymph nodes are unchanged from prior exam measuring up to 15 mm on the left. Mesenteric: Unremarkable. Peritoneum: Gas and fluid collection is seen in the left lower quadrant adjacent to diverticula. There is a small focus of pneumoperitoneum immediately and dependent to this lesion. Is soft tissue nodularity is unchanged from prior exam. Vessels: Atherosclerotic calcifications are seen. Infrarenal aortic aneurysm measuring up to 32 mm, unchanged from prior exam. Abdominal wall: Unremarkable. Bones: Degenerative changes in the visualized spine. IMPRESSION: 1. Findings are compatible with a perforated diverticulum with a small abscess and regional pneumoperitoneum. 2. Overall no significant change in retroperitoneal and iliac lymphadenopathy, perinephric nodules, and abnormality of the gallbladder and gallbladder fossa. ACT 112: Negative or not required by law. Electronically signed by: Felipe Vences M.D. 10/01/2023 7:56 PM Medications Administered Home Medications Medication Instructions Recorded Confirmed Last Taken acetaminophen 500 mg tablet 1,000 mg PO Q6H PRN Pain 02/23/19 09/29/23 09/29/23 (Tylenol Extra Strength) aspirin 81 mg tablet,delayed 81 mg PO QAM #0 tabs 02/25/19 09/29/23 09/29/23 09:00 release (Ecotrin Low Strength) metoprolol succinate 50 mg 50 mg PO QAM 04/09/19 09/29/23 09/29/23 10:00 tablet,extended release 24 hr nitroglycerin 0.4 mg sublingual 0.4 mg sublingual UD PRN chest 01/01/20 09/29/23 07/14/21 tablet (Nitrostat) pain #30 tabs losartan 100 mg tablet 100 mg PO QAM 01/04/23 09/29/23 09/29/23 10:00 atorvastatin 80 mg tablet 80 mg PO HS #90 tabs 04/03/23 09/29/23 09/28/23 20:00 ticagrelor 60 mg tablet (Brilinta) 60 mg PO BID #180 tabs 09/10/23 09/29/23 09/29/23 10:00 tobramycin 0.3 %-dexamethasone 0.1 1 drp ophthalmic (eye) TID 09/13/23 09/29/23 09/29/23 07:00 % eye drops,suspension amlodipine 5 mg tablet 5 mg PO HS #90 tabs 09/25/23 09/29/23 09/28/23 20:00 vitamin B complex 1 tab PO DAILY 09/29/23 09/29/23 09/29/23 07:00 Active Medications Generic Name Dose Route Start Last Admin Trade Name Freq PRN Reason Stop Dose Admin Aspirin 81 mg 09/30/23 09:00 10/04/23 07:37 Aspirin 81 Mg Ectab PO 10/30/23 08:59 81 mg QAM ERICK Administration Atorvastatin Calcium 80 mg 09/29/23 23:28 10/03/23 20:45 Atorvastatin 40 Mg Tab PO 10/29/23 23:27 80 mg HS ERICK Administration Diphenhydramine HCl 25 mg 10/02/23 13:48 10/04/23 10:02 Diphenhydramine Capsule 25 Mg Cap PO 11/01/23 13:47 25 mg Q6 PRN Administration Rash Ampicillin Sodium/Sulbactam 100 mls @ 100 mls/hr 10/03/23 12:00 10/04/23 07:18 Sodium 3,000 mg/ Sodium IV 10/13/23 23:59 Infused Chloride Q6H ERICK Infusion Protocol Metoprolol Succinate 50 mg 09/30/23 09:00 10/04/23 07:38 Metoprolol Succ 50mg Ext Rel Tab PO 10/30/23 08:59 50 mg QAM ERICK Administration Ticagrelor 60 mg 09/30/23 21:00 10/04/23 07:38 Ticagrelor 60 Mg Tab [Patient Own Med] PO 10/30/23 20:59 60 mg BID ERICK Administration Tobramycin/Dexamethasone 1 drops 09/29/23 23:28 10/04/23 07:39 Tobramycin/Dexamethasone Oph Susp 2.5 Ml Btl OP 10/29/23 23:27 1 drops TID ERICK Administration (2) Sepsis Sepsis acute organ dysfunction status: unspecified Sepsis type: sepsis due to unspecified organism Qualified Code(s): A41.9 - Sepsis, unspecified organism
[2023-10-04] MEDS: PIPER/TAZO 4.5g in D5W MINI-B 100 ML IV ONE (16:20)
[2023-10-04] MEDS: PIPERACILLIN/TAZOBACTAM 4.5 GM in DEXTROSE 5% MINI-B 100 ML IV SCH (20:24)
[2023-10-05 06:33] LABS: BUN Creatinine Ratio 12.8 (10-20); Calcium 8.9 mg/dl (8.6-10.3); Creatinine Clr Calc Pharmacy 37.3 ml/min; Est GFR (African American) 56.5 ml/min; Est GFR (Non-African American) 48.7 ml/min; Potassium 3.9 mmol/L (3.5-5.1)
[2023-10-05 06:57] LABS: Hematocrit (blood only) 36.8 % (42.0-52.0); Hemoglobin 12.1 g/dl (14.0-18.0); Mean Corpuscular Hemoglobin 28.3 pg (25.0-34.0); Mean Corpuscular Hgb Conc 32.9 g/dL (32.0-36.0); Nucleated RBC # (auto) 0.02 K/uL (0.00-0.12); Nucleated RBC % (auto) 0.1 %; RDW Coefficient of Variation 19.6 % (11.5-14.5); RDW Standard Deviation 60.1 fL (36.4-46.3); Red Blood Count 4.28 M/uL (4.70-6.10); White Blood Count 13.48 K/ul (4.8-10.8)
--- NOTE | 2023-10-05 10:47 | Infectious Disease Progress Nt ---
Date of Service October 05, 2023 Assessment & Plan (1) Chronic cholecystitis with calculus: (2) Sepsis: Plan This is an 83-year-old man with a past medical history of CAD, LUTS, hypertension, ITP status post splenectomy, diverticulitis with perforation in 2019, s/p abdominal drainage catheter, MI lymphoma, recently admitted to [facility] for aspiration pneumonia presents on 09/28 with fever, chills, rigors. He denies rash, headache, vision changes, shortness of breath, chest pain, change in urinary habits, change in bowel habits. He does have mild LL abdominal pain on admission. 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 He developed acute chills and shivering. Denies any triggering events. He denies any sick contacts. In the ED. he is afebrile but tachycardic. Labs: WBC 6.64-->21.97-->13.99, BUN 24, creatinine 1.22 lactate 1.4, Lyme screen negative, respiratory viral panel negative. Urinalysis w/ positive nitrites, 6-10 WBCs. Blood culture with gram- negative rods. Gram-negative rods identified as Bacteroides fragilis . ID of an additional GNR is pending. Chest x-ray with no acute process. He was started on Zosyn. 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 Discussion-Bacteroides and the ANOTHER GNR ( anaerobe) bacteremia likely from perforated diverticulum with a small abscess and regional pneumoperitoneum seen on ctap. His LLQ on exam has resolved on antibiotics. He has 2 GNR growing from BC. ONE has not yet been identified. He has no urinary symptoms, bacteriuria. No oral lesions, No evidence of active infection at B/L hips. Also noted on CTAP to have unchanged retroperitoneal and iliac lymphadenopathy, perinephric nodules, and abnormality of the gallbladder and gallbladder fossa. His WBC initially decreased on Zosyn --> Unasyn. His WBC then started to increase to 13.9 today. He denies abd pain. He has been put back on zoysn and he is pending repeat CtAP. No surgical intervention at this time HE is afebrile and HDS. 10/04 WBC 13.48 ( 12.46), plt 331, procal up to 1.15 ( 0.1) , crp 5.46, 2 different GNR ( anaerobic) on 09/28 BC ( 1 identified as Bacteroides, other sent to [facility] for identification) Recs WBC worsening. -Continue Zosyn 4.5gIV q8hrs (cr cl 37.3). Anticipate at least 14 days of therapy as no source control if WBC improving and abscess resolved on repeat CtAP pending for today . May be longer if continued abscess on repeat CTAP ( see below). Cipro/levofloxacin not an option as he experienced tendon rupture in past. -Follow up THE 2nd GNR iD and sensi on BC ( This is different than the IDed Bacteroides); sent to [facility] reference lab for ID. -Monitor WBC to ensure trending down. -Follow up today's CTAP - Follow up repeat BC If WBC decreased and abscess resolved or resolving on imaging, can DISCHARGE on 2 weeks of zosyn BUT change to either zosyn 4.5 g IV q 8 hr ( cr cl 37.3,--->would increase to q6 if cr cl >40)or zosyn 13.5 g IV daily continuous infusion if cr cl remains < 40; but 18g daily if cr cl >40) , depending on patient preference and insurance/home infusion options (10/0310/18/23). IF Abscess still present, repeat CT scan in ~2 weeks (approx.10/14) If repeat CT imaging showing persistent/increasing fluid collections, then would engage IR to drain and send for culture (bacterial aerobic/anaerobic and fungal Cx) and continue abx pending revaluation for abscess resolution. If discharge on zosyn - Weekly lab monitoring while on IV antibiotics: CBC w/ diff, CMP Please ensure these are collected as an outpatient and results are followed in clinic ( PCP or establish local ID care) IF WBC continues to worsen, consider broadening antibiotics to Meropenem 1 g IV q 8hr In case other GNR not yet identified is zosyn R. ID will continue to follow. [facility] will not round over the weekend. Please call [phone] with questions. D/w hospitalist Na Longoria MD, MPH Infectious Disease [facility], ID Division Admission and Anticipated Discharge Date Admission Date: October 01, 2023 Subjective Subsequent visit was provided via telemedicine using two-way real-time interactive telecommunication between the patient and the telemedicine provider. For the duration of the visit, the provider was performing the assessment from a different facility than the patient. This includesuse of bluetooth stethoscope forauscultationperformed by the telepresenter that the telemedicine provider can hear if described in the physical exam. Medical Technologist Generalist contact information: Please call [facility] Connect Call Center [phone]. (Phone Number For Physician Use Only) After establishing a telemedicine visit, patient was: Patient was verified with two unique identifiers Time Spent with Patient: Subsequent => 35 min BC from 09/28 growing TWO organisms.#1 GNR ( anaerobe) - not IDed AND bacteroides fragiles His WBC increased to 13.48, plt 331, procal up to 1.15, crp 5.46 He feels well Pending repeat CTAP Physical Exam Physical Exam: Gen- NAD, laying in bed Neck - Supple HEENT - anicteric sclera, fair dentition,some missing teeth No lesions,ulcers, Clear pharynx Lungs- No increased work of breathing Abdomen- soft,no LLQ tenderness - No suprapubic tenderness, No CVA tenderness Ext- No edema MSK- No TTP at BL hip Skin- no lesions, rash or wounds Neuro- AAO times 3 Psych- Normal mood, cooperative Results & Data Vital Signs (Past 12 Hours) Vital Signs Temp Pulse Pulse Resp BP BP Pulse Ox 10/05/23 07:47 36.4 C L 67 18 174/85 H 97 10/05/23 07:11 69 10/05/23 03:55 36.7 C 73 18 147/77 H 98 10/04/23 23:00 37.0 C 72 18 154/73 H 98 O2 Del Method 10/05/23 07:47 Room Air 10/05/23 07:11 10/05/23 03:55 Room Air 10/04/23 23:00 Room Air Laboratory Results Short CBC 10/05/23 Range/Units 05:58 WBC 13.48 H (4.8-10.8) K/ul Hgb 12.1 L (14.0-18.0) g/dl Hct 36.8 L (42.0-52.0) % Plt Count (130-400) K/uL BMP 10/05/23 06:00 Sodium 138 Potassium 3.9 Chloride 110 H Carbon Dioxide 20 L BUN 17 Creatinine 1.33 Glucose 101 H Calcium 8.9 Diagnostic Findings Microbiology 09/29/23 20:22 Blood Aerobic Blood Culture - Final No growth in Aerobic bottle after 5 days. 09/29/23 20:22 Blood Anaerobic Blood Culture - Preliminary Anaerobic gram negative bacill Bacteroides fragilis 09/29/23 19:55 Blood Aerobic Blood Culture - Final No growth in Aerobic bottle after 5 days. 09/29/23 19:55 Blood Anaerobic Blood Culture - Preliminary Probable slim gram neg bacilli Bacteroides fragilis 10/02/23 07:37 Sputum, Expectorated Gram Stain - Final 10/02/23 07:37 Sputum, Expectorated Sputum Culture - Final Moderate normal yolande. Medications Administered Home Medications Medication Instructions Recorded Confirmed Last Taken acetaminophen 500 mg tablet 1,000 mg PO Q6H PRN Pain 02/23/19 09/29/23 09/29/23 (Tylenol Extra Strength) aspirin 81 mg tablet,delayed 81 mg PO QAM #0 tabs 02/25/19 09/29/23 09/29/23 09:00 release (Ecotrin Low Strength) metoprolol succinate 50 mg 50 mg PO QAM 04/09/19 09/29/23 09/29/23 10:00 tablet,extended release 24 hr nitroglycerin 0.4 mg sublingual 0.4 mg sublingual UD PRN chest 01/01/20 09/29/23 07/14/21 tablet (Nitrostat) pain #30 tabs losartan 100 mg tablet 100 mg PO QAM 01/04/23 09/29/23 09/29/23 10:00 atorvastatin 80 mg tablet 80 mg PO HS #90 tabs 04/03/23 09/29/23 09/28/23 20:00 ticagrelor 60 mg tablet (Brilinta) 60 mg PO BID #180 tabs 09/10/23 09/29/2324 10:00 tobramycin 0.3 %-dexamethasone 0.1 1 drp ophthalmic (eye) TID 09/13/23 09/29/23 09/29/23 07:00 % eye drops,suspension amlodipine 5 mg tablet 5 mg PO HS #90 tabs 09/25/23 09/29/23 09/28/23 20:00 vitamin B complex 1 tab PO DAILY 09/29/23 09/29/23 09/29/23 07:00 Active Medications Generic Name Dose Route Start Last Admin Trade Name Freq PRN Reason Stop Dose Admin Aspirin 81 mg 09/30/23 09:00 10/05/23 08:08 Aspirin 81 Mg Ectab PO 10/30/23 08:59 81 mg QAM ERICK Administration Atorvastatin Calcium 80 mg 09/29/23 23:28 10/04/23 20:25 Atorvastatin 40 Mg Tab PO 10/29/23 23:27 80 mg HS ERICK Administration Diphenhydramine HCl 25 mg 10/02/23 13:48 10/05/23 08:26 Diphenhydramine Capsule 25 Mg Cap PO 11/01/23 13:47 25 mg Q6 PRN Administration Rash Piperacillin Sod/Tazobactam 100 mls @ 25 mls/hr 10/04/23 20:00 10/05/23 08:57 Sod 4.5 gm/ Dextrose IV 10/18/23 19:59 Infused Q8H ERICK Infusion Protocol Metoprolol Succinate 50 mg 09/30/23 09:00 10/05/23 08:08 Metoprolol Succ 50mg Ext Rel Tab PO 10/30/23 08:59 50 mg QAM ERICK Administration Ticagrelor 60 mg 09/30/23 21:00 10/05/23 08:08 Ticagrelor 60 Mg Tab [Patient Own Med] PO 10/30/23 20:59 60 mg BID ERICK Administration Tobramycin/Dexamethasone 1 drops 09/29/23 23:28 10/05/23 08:09 Tobramycin/Dexamethasone Oph Susp 2.5 Ml Btl OP 10/29/23 23:27 1 drops TID ERICK Administration (2) Sepsis Sepsis acute organ dysfunction status: unspecified Sepsis type: sepsis due to unspecified organism Qualified Code(s): A41.9 - Sepsis, unspecified organism
--- NOTE | 2023-10-05 11:20 | CT Scan Report ---
ABDOMEN AND PELVIS CT WITHOUT CONTRAST CT DOSE: 1208.24 mGy.cm HISTORY: Follow-up study in a patient with intra-abdominal abscess . History of chronic hepatic throm bocytopenia and non-Hodgkin's lymphoma. follow up abscess TECHNIQUE: Multiaxial CT images of the abdomen and pelvis were performed without contrast. A dose lo wering technique was utilized adhering to the principles of ALARA. COMPARISON STUDY: 10/01/2023 FINDINGS: Cardiomegaly with extensive coronary artery calcifications. Mild left hemidiaphragmatic melisa vation. Fusiform dilation of the ascending thoracic aorta, 4 cm. Mild bibasilar atelectasis versus sc arring. No pneumatosis or pneumoperitoneum identified. Absent spleen. Scattered calcifications noted involving the pancreas. Unremarkable adrenal glands. Ab normal appearance of the gallbladder redemonstrated with enhancing soft tissue within the expected lo cation of the gallbladder wall with possible extension into the liver and adjacent gastroduodenal sunshine ction. Moderate adjacent inflammatory stranding. This finding is similar to the prior exam. The liver is otherwise unremarkable. There is patency of the hepatic and portal veins. Bilateral renal cysts measure up to 6.8 x 6.4 cm within the superior pole right kidney. 9 mm intermed iate attenuating lesion of the lateral interpolar left kidney on image 125 favors a proteinaceous or hemorrhagic cyst. Enhancing nodular foci within the perinephric spaces measures up to 1.4 cm on the r ight and 1.8 cm on the left which is stable from prior. There are mildly enlarged retroperitoneal and iliac chain lymph nodes. A left periaortic node on image 168 measures 1.5 x 1.0 cm, unchanged. A lef t iliac chain node on image 205 measures 1.8 x 1.1 cm, unchanged and a right external iliac chain nod e on image 263 measures 2.6 x 1.0 cm, previously 2.5 x 1.0 cm. No new or progressive lymphadenopathy. Unchanged infrarenal abdominal aortic aneurysm measures 3.4 cm. Decompressed urinary bladder with wa ll thickening. Pelvic structures are not well visualized secondary to streak artifact from hip arthro plasties. Colonic diverticulosis. Acute diverticulitis of the proximal sigmoid has decreased from prior. There is resolution of the previously present pneumoperitoneum. Phlegmon/developing abscess within the noe cent mesocolon measures 1.7 x 1.2 x 1.9 cm. Increase in size from prior. No discrete wall. Unremarkab le soft tissues. No acute fracture. Prominent subcortical cystic changes of the right acetabulum sugg estive of particle disease. IMPRESSION: 1. Acute sigmoid diverticulitis redemonstrated with resolution of the previously described pneumoperi toneum. There is a small contained perforation/developing abscess within the sigmoid mesocolon measur ing up to 1.9 cm. No discrete wall or drainable fluid component. 2. Generally stable disease in this patient with history of non-Hodgkin's lymphoma including bilatera l perinephric nodules with mildly enlarged retroperitoneal and iliac chain lymph nodes which are over all similar to the prior study. No evidence of new or progressive disease. 3. Abnormal appearance of the gallbladder redemonstrated with possible underlying mass/lymphomatous involvement with extension into the liver and gastroduodenal junction. 4. Splenectomy. 5. Colonic diverticulosis. 6. Additional findings as above. ACT 112: Negative or not required by law. The above report was generated using voice recognition software. It may contain grammatical, syntax o r spelling errors. Electronically signed by: Jonn Chaney M.D. 10/05/2023 11:18 AM
--- NOTE | 2023-10-05 11:22 | Hospitalist Progress Note ---
Date of Service October 05, 2023 Assessment & Plan (1) Bacteremia: Plan: Gram negative bacteremia due to perforated diverticulum with abscess Patient admitted to the hospital on account of fever Blood cultures growing Bacteroides, sensitivities pending Source is likely perforated diverticulitis with abscess as seen on CT abdomen and pelvis 2D echo did not show any evidence of vegetation Inflammatory markers still elevated WBC around 13,000 elevated Pro-Robby and C- reactive protein IV antibiotics changed back to IV Zosyn 4.5 g every 8 hours. On account of persistent inflammation markers, ID determined patient will be on antibiotic for at least 2 to 3 weeks. Will obtain a repeat CT abdomen and pelvis to reevaluate the abscess. (2) Diverticulitis of colon with perforation: Plan: Patient has a history of perforated diverticulitis in the past Was concerned that being on steroids may aggravate his perforated diverticulitis as it happened before CT abdomen and pelvis confirmed evidence of diverticulitis with perforation and abscess Surgery recommends no surgical intervention for now Continue antibiotics. Obtain a repeat CT abdomen and pelvis today to reevaluate abscess (3) Fever: Plan: Now resolved Likely due to gram-negative bacilli bacteremia No fevers in the past 72 hours (4) BPH NOS w ur obs/LUTS: Plan: Will follow UA once obtained Monitor for retention (5) Chronic ITP (idiopathic thrombocytopenia): Plan: Platelet count currently stable Monitor daily CBC (6) Hypertension: Plan: Currently stable Will continue metoprolol but hold amlodipine and losartan for now to avoid hypotension in case he has a true infection (7) CAD (coronary artery disease): Plan: No recent chest pain Continue aspirin, Brilinta, and statin (8) Rigors: Plan: See fever Plan Patient said he wants to be discharged, will discharge him home with home health tomorrow when it is all set up. Full code Admission and Anticipated Discharge Date Admission Date: October 01, 2023 Subjective Patient feels about the same, denies abdominal pain fevers or chills. Review of Systems Review of Systems: All systems reviewed are negative, apart from the ones contained in the history. Physical Exam Physical Exam: The patient is awake, alert and oriented 3, well developed and well nourished, normocephalic and atraumatic, lying in bed and in no acute distress. HEENT--PERRL, EOMI, mucous membranes and oropharynx mildly dry Neck--supple. No JVD. No bruits. Thyroid normal, trachea midline, no adenopathy. Heart--normal S1 and S2. No murmurs, rubs or gallops. Lungs--clear bilaterally, no respiratory distress, no accessory muscle use. Abdomen--normal bowel sounds and soft. Extremities--no cyanosis or clubbing. No edema. Dermatologic--normal skin turgor, normal color, no abnormal lymph nodes, no rash. Neurologic--cranial nerves II through XII grossly intact. Rheumatologic--normal range of motion. Psychiatric--normal affect. Results & Data Results & Data Vital Signs (Past 12 Hours) Vital Signs Temp Pulse Pulse Resp BP BP Pulse Ox 10/05/23 07:47 97.5 F L 67 18 174/85 H 97 10/05/23 07:11 69 10/05/23 03:55 98.1 F 73 18 147/77 H 98 O2 Del Method 10/05/23 07:47 Room Air 10/05/23 07:11 10/05/23 03:55 Room Air PG Care Time/CCT Total # of Minutes Spent Total Time Spent with Patient: Total time spent is greater than 50% in coordination of care (as documented) at patient's floor/unit and/or counseling patient: Coding Level of Care Code 53104 SUB INP/OBS CARE 2/35MIN Diagnoses Bacteremia R78.81 Diverticulitis of colon with perforation K57.20 Fever R50.9 BPH NOS w ur obs/LUTS N40.1 Chronic ITP (idiopathic thrombocytopenia) D69.3 Hypertension I10 CAD (coronary artery disease) I25.119 Associated angina: with unspecified angina Coronary Disease-Associated Artery/Lesion type: unspecified vessel or lesion type [place] vs. transplanted heart: [place] heart Rigors R68.89 Time Spent (min) 35 (7) CAD (coronary artery disease) Associated angina: with unspecified angina Coronary Disease-Associated Artery/Lesion type: unspecified vessel or lesion type [place] vs. transplanted heart: [place] heart Qualified Code(s): I25.119 - Atherosclerotic heart disease of [place] coronary artery with unspecified angina pectoris
[2023-10-06 06:43] LABS: BUN Creatinine Ratio 10.6 (10-20); C Reactive Protein 5.28 mg/dl (0-0.5); Calcium 8.5 mg/dl (8.6-10.3); Creatinine Clr Calc Pharmacy 37.6 ml/min; Est GFR (Non-African American) 49.2 ml/min; Potassium 3.4 mmol/L (3.5-5.1)
[2023-10-06 06:45] LABS: Hematocrit (blood only) 32.7 % (42.0-52.0); Hemoglobin 10.9 g/dl (14.0-18.0); Mean Corpuscular Hemoglobin 28.3 pg (25.0-34.0); Mean Corpuscular Hgb Conc 33.3 g/dL (32.0-36.0); Mean Corpuscular Volume 84.9 fL (80.0-100.0); Nucleated RBC # (auto) 0.02 K/uL (0.00-0.12); Nucleated RBC % (auto) 0.2 %; RDW Coefficient of Variation 19.1 % (11.5-14.5); RDW Standard Deviation 58.7 fL (36.4-46.3); Red Blood Count 3.85 M/uL (4.70-6.10)
[2023-10-06 06:47] LABS: Mean Platelet Volume 10.6 fL (9.4-12.4)
--- NOTE | 2023-10-06 14:15 | Hospitalist Progress Note ---
Date of Service October 06, 2023 Assessment & Plan (1) Bacteremia: Plan: Gram negative bacteremia due to perforated diverticulum with abscess Patient admitted to the hospital on account of fever Blood cultures growing Bacteroides, no sensitivities expected, a second sample is growing gram negatives, sent to outside lab for sensitivity Source is likely perforated diverticulitis with abscess as seen on CT abdomen and pelvis 2D echo did not show any evidence of vegetation Repeat CT scan showed slight worsening of the abscess still not drainable, WBC just slightly better. Will consult IR to get a sample and sent for cultures. Will plan for IV Zosyn 4.5 g every 8 hours for [address] scan in 2 weeks, weekly labs Asked patient to establish follow-up with the local infectious diseases expert (2) Diverticulitis of colon with perforation: Plan: Patient has a history of perforated diverticulitis in the past Was concerned that being on steroids may aggravate his perforated diverticulitis as it happened before CT abdomen and pelvis confirmed evidence of diverticulitis with perforation and abscess Surgery recommends no surgical intervention for now Continue antibiotics. Repeat CT scan showed slight worsening of the abscess still not drainable, WBC just slightly better. Will consult IR to get a sample and sent for cultures. (3) Fever: Plan: Now resolved Likely due to gram-negative bacilli bacteremia (4) BPH NOS w ur obs/LUTS: Plan: Will follow UA once obtained Monitor for retention (5) Chronic ITP (idiopathic thrombocytopenia): Plan: Platelet count currently stable Monitor daily CBC (6) Hypertension: Plan: Currently stable Will continue metoprolol but hold amlodipine and losartan for now to avoid hypotension in case he has a true infection (7) CAD (coronary artery disease): Plan: No recent chest pain Continue aspirin, Brilinta, and statin (8) Rigors: Plan: See fever Plan Hopefully discharge to either rehab for long-term antibiotics Full code Admission and Anticipated Discharge Date Admission Date: October 01, 2023 Review of Systems Review of Systems: All systems reviewed are negative, apart from the ones contained in the history. Physical Exam Physical Exam: The patient is awake, alert and oriented 3, well developed and well nourished, normocephalic and atraumatic, lying in bed and in no acute distress. HEENT--PERRL, EOMI, mucous membranes and oropharynx mildly dry Neck--supple. No JVD. No bruits. Thyroid normal, trachea midline, no adenopathy. Heart--normal S1 and S2. No murmurs, rubs or gallops. Lungs--clear bilaterally, no respiratory distress, no accessory muscle use. Abdomen--normal bowel sounds and soft. Extremities--no cyanosis or clubbing. No edema. Dermatologic--normal skin turgor, normal color, no abnormal lymph nodes, no rash. Neurologic--cranial nerves II through XII grossly intact. Rheumatologic--normal range of motion. Psychiatric--normal affect. Results & Data Results & Data Vital Signs (Past 12 Hours) Vital Signs Temp Pulse Pulse Resp BP BP Pulse Ox 10/06/23 11:48 98.1 F 82 16 135/83 98 10/06/23 07:44 98.4 F 76 16 153/79 H 96 10/06/23 07:13 75 10/06/23 03:10 97.5 F L 65 18 146/77 H 97 O2 Del Method 10/06/23 11:48 Room Air 10/06/23 07:44 Room Air 10/06/23 07:13 10/06/23 03:10 Room Air PG Care Time/CCT Total # of Minutes Spent Total Time Spent with Patient: Total time spent is greater than 50% in coordination of care (as documented) at patient's floor/unit and/or counseling patient: Coding Level of Care Code 46728 SUB INP/OBS CARE 2/35MIN Diagnoses Bacteremia R78.81 Diverticulitis of colon with perforation K57.20 Fever R50.9 BPH NOS w ur obs/LUTS N40.1 Chronic ITP (idiopathic thrombocytopenia) D69.3 Hypertension I10 CAD (coronary artery disease) I25.119 Associated angina: with unspecified angina Coronary Disease-Associated Artery/Lesion type: unspecified vessel or lesion type [place] vs. transplanted heart: [place] heart Rigors R68.89 Time Spent (min) 35 (7) CAD (coronary artery disease) Associated angina: with unspecified angina Coronary Disease-Associated Artery/Lesion type: unspecified vessel or lesion type [place] vs. transplanted heart: [place] heart Qualified Code(s): I25.119 - Atherosclerotic heart disease of [place] coronary artery with unspecified angina pectoris
[2023-10-07 06:44] LABS: BUN Creatinine Ratio 12.1 (10-20); Calcium 8.8 mg/dl (8.6-10.3); Creatinine Clr Calc Pharmacy 37.6 ml/min; Est GFR (Non-African American) 49.2 ml/min; Potassium 3.6 mmol/L (3.5-5.1)
[2023-10-07 07:18] LABS: Hematocrit (blood only) 34.5 % (42.0-52.0); Hemoglobin 11.2 g/dl (14.0-18.0); Mean Corpuscular Hemoglobin 28.2 pg (25.0-34.0); Mean Corpuscular Hgb Conc 32.5 g/dL (32.0-36.0); Mean Corpuscular Volume 86.9 fL (80.0-100.0); Mean Platelet Volume 10.8 fL (9.4-12.4); Nucleated RBC # (auto) 0.02 K/uL (0.00-0.12); Nucleated RBC % (auto) 0.2 %; RDW Coefficient of Variation 19.5 % (11.5-14.5); RDW Standard Deviation 61.4 fL (36.4-46.3); Red Blood Count 3.97 M/uL (4.70-6.10); White Blood Count 12.83 K/ul (4.8-10.8)
[2023-10-07] MEDS: ACETAMINOPHEN 325 MG TAB PO PRN (07:33)
[2023-10-07 08:52] LABS: C Reactive Protein 5.28 mg/dl (0-0.5)
--- NOTE | 2023-10-07 11:19 | Hospitalist Progress Note ---
Date of Service October 07, 2023 Assessment & Plan (1) Bacteremia: Plan: Gram negative bacteremia due to perforated diverticulum with abscess Patient admitted to the hospital on account of fever Blood cultures growing Bacteroides, no sensitivities expected, a second sample is growing gram negatives, sent to outside lab for sensitivity Source is likely perforated diverticulitis with abscess as seen on CT abdomen and pelvis 2D echo did not show any evidence of vegetation Repeat CT scan done 10/05/23 showed slight worsening of the abscess still not drainable, WBC just slightly better. Will consult IR to get a sample and sent for cultures. Will plan for IV Zosyn 4.5 g every 8 hours for [address] scan in 2 weeks, weekly labs Asked patient to establish follow-up with the local infectious diseases expert (2) Diverticulitis of colon with perforation: Plan: Patient has a history of perforated diverticulitis in the past Was concerned that being on steroids may aggravate his perforated diverticulitis as it happened before CT abdomen and pelvis confirmed evidence of diverticulitis with perforation and abscess Surgery recommends no surgical intervention for now Continue antibiotics. Repeat CT scan showed slight worsening of the abscess still not drainable, WBC just slightly better. Will consult IR to get a sample and sent for cultures. (3) Fever: Plan: Now resolved Likely due to gram-negative bacilli bacteremia (4) BPH NOS w ur obs/LUTS: Plan: Will follow UA once obtained Monitor for retention (5) Chronic ITP (idiopathic thrombocytopenia): Plan: Platelet count currently stable Monitor daily CBC (6) Hypertension: Plan: Currently stable Will continue metoprolol but hold amlodipine and losartan for now to avoid hypotension in case he has a true infection (7) CAD (coronary artery disease): Plan: No recent chest pain Continue aspirin, Brilinta, and statin (8) Rigors: Plan: See fever Plan Hopefully discharge to either rehab for long-term antibiotics Full code Admission and Anticipated Discharge Date Admission Date: October 01, 2023 Subjective Patient seen and examined this morning, complained of right hip pain, denies fevers or chills overnight. Review of Systems Review of Systems: All systems reviewed are negative, apart from the ones contained in the history. Physical Exam Physical Exam: The patient is awake, alert and oriented 3, well developed and well nourished, normocephalic and atraumatic, lying in bed and in no acute distress. HEENT--PERRL, EOMI, mucous membranes and oropharynx mildly dry Neck--supple. No JVD. No bruits. Thyroid normal, trachea midline, no adenopathy. Heart--normal S1 and S2. No murmurs, rubs or gallops. Lungs--clear bilaterally, no respiratory distress, no accessory muscle use. Abdomen--normal bowel sounds and soft. Extremities--no cyanosis or clubbing. No edema. Dermatologic--normal skin turgor, normal color, no abnormal lymph nodes, no rash. Neurologic--cranial nerves II through XII grossly intact. Rheumatologic--normal range of motion. Psychiatric--normal affect. Results & Data Results & Data Vital Signs (Past 12 Hours) Vital Signs Temp Pulse Pulse Resp BP BP Pulse Ox 10/07/23 07:42 98.2 F 88 16 136/83 97 10/07/23 05:44 69 10/07/23 01:59 98.6 F 70 18 142/62 H 96 O2 Del Method 10/07/23 07:42 Room Air 10/07/23 05:44 10/07/23 01:59 Room Air PG Care Time/CCT Total # of Minutes Spent Total Time Spent with Patient: Total time spent is greater than 50% in coordination of care (as documented) at patient's floor/unit and/or counseling patient: Coding Level of Care Code 54107 SUB INP/OBS CARE 2/35MIN Diagnoses Bacteremia R78.81 Diverticulitis of colon with perforation K57.20 Fever R50.9 BPH NOS w ur obs/LUTS N40.1 Chronic ITP (idiopathic thrombocytopenia) D69.3 Hypertension I10 CAD (coronary artery disease) I25.119 Associated angina: with unspecified angina Coronary Disease-Associated Artery/Lesion type: unspecified vessel or lesion type [place] vs. transplanted heart: [place] heart Rigors R68.89 Time Spent (min) 35 (7) CAD (coronary artery disease) Associated angina: with unspecified angina Coronary Disease-Associated Artery/Lesion type: unspecified vessel or lesion type [place] vs. transplanted heart: [place] heart Qualified Code(s): I25.119 - Atherosclerotic heart disease of [place] coronary artery with unspecified angina pectoris
[2023-10-08 07:16] LABS: BUN Creatinine Ratio 14.3 (10-20); C Reactive Protein 4.88 mg/dl (0-0.5); Calcium 8.4 mg/dl (8.6-10.3); Creatinine Clr Calc Pharmacy 41.7 ml/min; Est GFR (African American) 64.6 ml/min; Est GFR (Non-African American) 55.8 ml/min; Potassium 3.2 mmol/L (3.5-5.1)
[2023-10-08 07:22] LABS: Hematocrit (blood only) 31.7 % (42.0-52.0); Hemoglobin 10.5 g/dl (14.0-18.0); Mean Corpuscular Hemoglobin 28.3 pg (25.0-34.0); Mean Corpuscular Hgb Conc 33.1 g/dL (32.0-36.0); Mean Corpuscular Volume 85.4 fL (80.0-100.0); Mean Platelet Volume 11.5 fL (9.4-12.4); RDW Coefficient of Variation 18.9 % (11.5-14.5); RDW Standard Deviation 58.5 fL (36.4-46.3); Red Blood Count 3.71 M/uL (4.70-6.10); White Blood Count 10.23 K/ul (4.8-10.8)
[2023-10-08] MEDS: POTASSIUM CHLORIDE CRTAB 20 MEQ TABCR PO STA (08:50)
--- NOTE | 2023-10-08 10:18 | Infectious Disease Progress Nt ---
Date of Service October 08, 2023 Assessment & Plan (1) Chronic cholecystitis with calculus: (2) Sepsis: Plan This is an 83-year-old man with a past medical history of CAD, LUTS, hypertension, ITP status post splenectomy, diverticulitis with perforation in 2019, s/p abdominal drainage catheter, [place] lymphoma, recently admitted to [facility] for aspiration pneumonia presents on 09/28 with fever, chills, rigors. He denies rash, headache, vision changes, shortness of breath, chest pain, change in urinary habits, change in bowel habits. He does have mild LL abdominal pain on admission. In the days [employer], he played golf and drove to [place]. He developed acute chills and shivering. Denies any triggering events. He denies any sick contacts. In the ED. he is afebrile but tachycardic. Labs: WBC 6.64-->21.97-->13.99-->10 BUN 24, creatinine 1.22 lactate 1.4, Lyme screen negative, respiratory viral panel negative. Urinalysis w/ positive nitrites, 6-10 WBCs. Blood culture with gram-negative rods. Gram-negative rods identified as Bacteroides fragilis . ID of an additional GNR is pending. Chest x-ray with no acute process. He was started on Zosyn. ID consulted for gram-negative bacteremia WBC climbing (now better) Repeat CT 10/04 shows Acute sigmoid diverticulitis redemonstrated with resolution of the previously described pneumoperitoneum. There is a small contained perforation/developing abscess within the sigmoid mesocolon measuring up to 1.9 cm. No discrete wall or drainable fluid component. Surgery recommended to manage conservatively Micro BC 09/28 GNR 2/4 bottles ( anaerobic) AND bacteroides fragilis (PRELIM) BC 8/2 NG Abx zosyn 09/28- 10/01, 10/03- ongoing Ceftriaxone 09/28 Unasyn 10/01- 10/03 # GNR AND Bacteroides Bacteremia #Diverticulitis with Perforated Diverticulum, small abscess # Leukocytosis, worsening # H/O BL hip replacement # Cipro Side effect tendon rupture #Sulfa allergy - hives # [place] lymphoma, not on therapy. Discussion-Bacteroides and the ANOTHER GNR ( anaerobe) bacteremia likely from perforated diverticulum with a small abscess and regional pneumoperitoneum seen on ctap. His LLQ on exam has resolved on antibiotics. He has 2 GNR growing from BC. ONE has not yet been identified. He has no urinary symptoms, bacteriuria. No oral lesions, No evidence of active infection at B/L hips. Also noted on CTAP to have unchanged retroperitoneal and iliac lymphadenopathy, perinephric nodules, and abnormality of the gallbladder and gallbladder fossa. His WBC initially decreased on Zosyn --> Unasyn. His WBC then started to increase to 13.[address] as above. He denies abd pain. He has been put back on zoysn and he is pending repeat CtAP. No surgical intervention at this time HE is afebrile and HDS. Updated labs: different GNR ( anaerobic) on 09/28 BC ( 1 identified as Bacteroides, other sent to [facility] for identification) Recs Improved WBC -Continue Zosyn 4.5gIV q8hrs (cr cl 37.3). there is a developing abscess - Primary to see if IR can drain- they can, anticipate 2 week course If not able to drain we may need to extend 3-4 weeks Cipro/levofloxacin not an option as he experienced tendon rupture in past. -Follow up THE 2nd GNR iD and sensi on BC ( This is different than the IDed Bacteroides); sent to [facility] reference lab for ID. -Monitor WBC to ensure trending down. If IR can drain will likely need 2 weeks of zosyn BUT change to either zosyn 4.5 g IV q 8 hr ( cr cl 37.3,--->would increase to q6 if cr cl >40)or zosyn 13.5 g IV daily continuous infusion if cr cl remains < 40; but 18g daily if cr cl >40) , depending on patient preference and insurance/home infusion options (10/0310/18/23). IF Abscess still present, repeat CT scan in ~2 weeks (approx.10/14) If repeat CT imaging showing persistent/increasing fluid collections, then would engage IR to drain and send for culture (bacterial aerobic/anaerobic and fungal Cx) and continue abx pending revaluation for abscess resolution. D/w hospitalist Barbara Canas MD Infectious Disease [facility], ID Division Admission and Anticipated Discharge Date Admission Date: October 01, 2023 Subjective This patient recommendation is based on a telemedicine consult request which was completed asynchronously through chart review and information provided by the primary physician. The patient was not seen or examined today. The evaluation is consultative in nature and all patient care and treatment decisions can either be accepted or rejected by the patient's primary hospital-based treating physician using their own independent medical judgment for their patient. Time Spent Reviewing Chart: 31+ minutes Results & Data Vital Signs (Past 12 Hours) Vital Signs Temp Pulse Pulse Resp BP Pulse Ox O2 Del Method 10/08/23 07:35 36.6 C 62 15 167/79 H 98 Room Air 10/08/23 07:08 56 L 10/08/23 03:24 36.4 C L 58 L 16 145/74 H 97 Room Air Laboratory Results Short CBC 10/08/23 Range/Units 05:42 WBC 10.23 (4.8-10.8) K/ul Hgb 10.5 L (14.0-18.0) g/dl Hct 31.7 L (42.0-52.0) % Plt Count (130-400) K/uL BMP 10/08/23 05:42 Sodium 140 Potassium 3.2 L Chloride 109 H Carbon Dioxide 23 BUN 17 Creatinine 1.19 Glucose 90 Calcium 8.4 L Diagnostic Findings Abdomen/Pelvis CT 10/05/23 09:[address] WITHOUT CONTRAST CT DOSE: 1208.24 mGy.cm HISTORY: Follow-up study in a patient with intra-abdominal abscess . History of chronic hepatic thrombocytopenia and non-Hodgkin's lymphoma. follow up abscess TECHNIQUE: Multiaxial CT images of the abdomen and pelvis were performed without contrast. A dose lowering technique was utilized adhering to the principles of ALARA. COMPARISON STUDY: 10/01/2023 FINDINGS: Cardiomegaly with extensive coronary artery calcifications. Mild left hemidiaphragmatic elevation. Fusiform dilation of the ascending thoracic aorta, 4 cm. Mild bibasilar atelectasis versus scarring. No pneumatosis or pneumoperitoneum identified. Absent spleen. Scattered calcifications noted involving the pancreas. Unremarkable adrenal glands. Abnormal appearance of the gallbladder redemonstrated with enhancing soft tissue within the expected location of the gallbladder wall with possible extension into the liver and adjacent gastroduodenal junction. Moderate adjacent inflammatory stranding. This finding is similar to the prior exam. The liver is otherwise unremarkable. There is patency of the hepatic and portal veins. Bilateral renal cysts measure up to 6.8 x 6.4 cm within the superior pole right kidney. 9 mm intermediate attenuating lesion of the lateral interpolar left kidney on image 125 favors a proteinaceous or hemorrhagic cyst. Enhancing nodular foci within the perinephric spaces measures up to 1.4 cm on the right and 1.8 cm on the left which is stable from prior. There are mildly enlarged retroperitoneal and iliac chain lymph nodes. A left periaortic node on image 168 measures 1.5 x 1.0 cm, unchanged. A left iliac chain node on image 205 measures 1.8 x 1.1 cm, unchanged and a right external iliac chain node on image 263 measures 2.6 x 1.0 cm, previously 2.5 x 1.0 cm. No new or progressive lymphadenopathy. Unchanged infrarenal abdominal aortic aneurysm measures 3.4 cm. Decompressed urinary bladder with wall thickening. Pelvic structures are not well visualized secondary to streak artifact from hip arthroplasties. Colonic diverticulosis. Acute diverticulitis of the proximal sigmoid has decreased from prior. There is resolution of the previously present pneumoperitoneum. Phlegmon/developing abscess within the adjacent mesocolon measures 1.7 x 1.2 x 1.9 cm. Increase in size from prior. No discrete wall. Unremarkable soft tissues. No acute fracture. Prominent subcortical cystic changes of the right acetabulum suggestive of particle disease. IMPRESSION: 1. Acute sigmoid diverticulitis redemonstrated with resolution of the previously described pneumoperitoneum. There is a small contained perforation/developing abscess within the sigmoid mesocolon measuring up to 1.9 cm. No discrete wall or drainable fluid component. 2. Generally stable disease in this patient with history of non-Hodgkin's lymphoma including bilateral perinephric nodules with mildly enlarged retroperitoneal and iliac chain lymph nodes which are overall similar to the prior study. No evidence of new or progressive disease. 3. Abnormal appearance of the gallbladder redemonstrated with possible underlying mass/lymphomatous involvement with extension into the liver and gastroduodenal junction. 4. Splenectomy. 5. Colonic diverticulosis. 6. Additional findings as above. ACT 112: Negative or not required by law. The above report was generated using voice recognition software. It may contain grammatical, syntax or spelling errors. Electronically signed by: Jonn Chaney M.D. 10/05/2023 11:18 AM Medications Administered Current Inpatient Medications Acetaminophen (Acetaminophen 325 Mg Tab) 650 mg PO Q4H PRN PRN Reason: pain or fever Stop: 11/06/23 07:17 Last Admin: 10/07/23 20:35 Dose: 650 mg Aspirin (Aspirin 81 Mg Ectab) 81 mg PO QAM [facility] Stop: 10/30/23 08:59 Last Admin: 10/08/23 07:53 Dose: 81 mg Atorvastatin Calcium (Atorvastatin 40 Mg Tab) 80 mg PO HS [facility] Stop: 10/29/23 23:27 Last Admin: 10/07/23 20:31 Dose: 80 mg Diphenhydramine HCl (Diphenhydramine Capsule 25 Mg Cap) 25 mg PO Q6 PRN PRN Reason: Rash Stop: 11/01/23 13:47 Last Admin: 10/07/23 18:09 Dose: 25 mg Heparin Sodium (Beef Lung) (Heparin 10 Unit/Ml 5 Ml Flush) 5 ml FLUSH PRN PRN PRN Reason: Flush Stop: 11/06/23 15:04 Last Admin: 10/08/23 00:22 Dose: 5 ml Piperacillin Sod/Tazobactam (Sod 4.5 gm/ Dextrose) 100 mls @ 25 mls/hr IV Q8H [facility]; Protocol Stop: 10/18/23 19:59 Last Infusion: 10/08/23 08:31 Dose: Infused Metoprolol Succinate (Metoprolol Succ 50mg Ext Rel Tab) 50 mg PO QAM [facility] Stop: 10/30/23 08:59 Last Admin: 10/08/23 07:53 Dose: 50 mg Ticagrelor (Ticagrelor 60 Mg Tab [Patient Own Med]) 60 mg PO BID [facility] Stop: 10/30/23 20:59 Last Admin: 10/08/23 07:54 Dose: 60 mg Tobramycin/Dexamethasone (Tobramycin/Dexamethasone Oph Susp 2.5 Ml Btl) 1 drops OP TID [facility] Stop: 10/29/23 23:27 Last Admin: 10/08/23 07:54 Dose: 1 drops (2) Sepsis Sepsis acute organ dysfunction status: unspecified Sepsis type: sepsis due to unspecified organism Qualified Code(s): A41.9 - Sepsis, unspecified organism
--- NOTE | 2023-10-08 13:06 | Hospitalist Progress Note ---
Date of Service October 08, 2023 Assessment & Plan (1) Bacteremia: Plan: Gram negative bacteremia due to perforated diverticulum with abscess Patient admitted to the hospital on account of fever Blood cultures growing Bacteroides, no sensitivities expected, a second sample is growing gram negatives, sent to outside lab for sensitivity Source is likely perforated diverticulitis with abscess as seen on CT abdomen and pelvis 2D echo did not show any evidence of vegetation Repeat CT scan done 10/05/23 showed slight worsening of the abscess still not drainable, WBC Is not within normal limits Will plan for IV Zosyn 4.5 g every 8 hours for [address] scan in 2 weeks, weekly labs Asked patient to establish follow-up with the local infectious diseases expert (2) Diverticulitis of colon with perforation: Plan: Patient has a history of perforated diverticulitis in the past Was concerned that being on steroids may aggravate his perforated diverticulitis as it happened before CT abdomen and pelvis confirmed evidence of diverticulitis with perforation and abscess Surgery recommends no surgical intervention for now Continue antibiotics. Repeat CT scan showed slight worsening of the abscess still not drainable, per IR, nothing to drain WBC now wnl CRP continues to trend down He will need a total of 3 weeks of IV Zosyn PICC line has been inserted, patient to go to rehab when a bed is available for IV antibiotics (3) Fever: Plan: Now resolved Likely due to gram-negative bacilli bacteremia (4) BPH NOS w ur obs/LUTS: Plan: Will follow UA once obtained Monitor for retention (5) Chronic ITP (idiopathic thrombocytopenia): Plan: Platelet count currently stable Monitor daily CBC (6) Hypertension: Plan: Currently stable Will continue metoprolol but hold amlodipine and losartan for now to avoid hypotension in case he has a true infection (7) CAD (coronary artery disease): Plan: No recent chest pain Continue aspirin, Brilinta, and statin (8) Rigors: Plan: See fever Plan Discharged to rehab for long-term antibiotics, hopefully tomorrow. Full code Admission and Anticipated Discharge Date Admission Date: October 01, 2023 Subjective Patient seen and examined this morning, complained of right hip pain, denies fevers or chills overnight. Review of Systems Review of Systems: All systems reviewed are negative, apart from the ones contained in the history. Physical Exam Physical Exam: The patient is awake, alert and oriented 3, well developed and well nourished, normocephalic and atraumatic, lying in bed and in no acute distress. HEENT--PERRL, EOMI, mucous membranes and oropharynx mildly dry Neck--supple. No JVD. No bruits. Thyroid normal, trachea midline, no adenopathy. Heart--normal S1 and S2. No murmurs, rubs or gallops. Lungs--clear bilaterally, no respiratory distress, no accessory muscle use. Abdomen--normal bowel sounds and soft. Extremities--no cyanosis or clubbing. No edema. Dermatologic--normal skin turgor, normal color, no abnormal lymph nodes, no r yoni. Neurologic--cranial nerves II through XII grossly intact. Rheumatologic--normal range of motion. Psychiatric--normal affect. Results & Data Results & Data Vital Signs (Past 12 Hours) Vital Signs Temp Pulse Pulse Resp BP Pulse Ox O2 Del Method 10/08/23 11:34 97.7 F 80 17 133/75 96 Room Air 10/08/23 07:35 97.9 F 62 15 167/79 H 98 Room Air 10/08/23 07:08 56 L 10/08/23 03:24 97.5 F L 58 L 16 145/74 H 97 Room Air PG Care Time/CCT Total # of Minutes Spent Total Time Spent with Patient: Total time spent is greater than 50% in coordination of care (as documented) at patient's floor/unit and/or counseling patient: Coding Level of Care Code 35180 SUB INP/OBS CARE 2/35MIN Diagnoses Bacteremia R78.81 Diverticulitis of colon with perforation K57.20 Fever R50.9 BPH NOS w ur obs/LUTS N40.1 Chronic ITP (idiopathic thrombocytopenia) D69.3 Hypertension I10 CAD (coronary artery disease) I25.119 Associated angina: with unspecified angina Coronary Disease-Associated Artery/Lesion type: unspecified vessel or lesion type [place] vs. transplanted heart: [place] heart Rigors R68.89 Time Spent (min) 35 (7) CAD (coronary artery disease) Associated angina: with unspecified angina Coronary Disease-Associated Artery/Lesion type: unspecified vessel or lesion type [place] vs. transplanted heart: [place] heart Qualified Code(s): I25.119 - Atherosclerotic heart disease of [place] coronary artery with unspecified angina pectoris
[2023-10-09 08:09] LABS: Mean Corpuscular Hgb Conc 33.3 g/dL (32.0-36.0); RDW Coefficient of Variation 19.3 % (11.5-14.5); RDW Standard Deviation 59.1 fL (36.4-46.3); Red Blood Count 3.93 M/uL (4.70-6.10); White Blood Count 11.76 K/ul (4.8-10.8)
[2023-10-09 08:16] LABS: BUN Creatinine Ratio 12.7 (10-20); C Reactive Protein 2.78 mg/dl (0-0.5); Calcium 8.7 mg/dl (8.6-10.3); Creatinine Clr Calc Pharmacy 42.1 ml/min; Est GFR (African American) 65.3 ml/min; Est GFR (Non-African American) 56.3 ml/min; Potassium 3.6 mmol/L (3.5-5.1)
--- NOTE | 2023-10-09 17:19 | Discharge Summary ---
Discharge Summary Date of Service October 09, 2023 Principal Dx & Hospital Course #1 = Principal Diagnosis (1) Bacteremia: Gram negative bacteremia due to perforated diverticulum with abscess Patient admitted to the hospital on account of fever Blood cultures growing Bacteroides, no sensitivities expected, a second sample is growing gram negatives, sent to outside lab for sensitivity Source is likely perforated diverticulitis with abscess as seen on CT abdomen and pelvis 2D echo did not show any evidence of vegetation Repeat CT scan done 10/05/23 showed slight worsening of the abscess still not drainable due to small size, WBC improved from 22-->12. CRP improved from 5.4-->2.78 Will plan for IV Zosyn 4.5 g every 6 hours for [address] scan in 2 weeks, weekly labs Asked patient to establish follow-up with the local infectious diseases expert (2) Diverticulitis of colon with perforation: Patient has a history of perforated diverticulitis in the past Was concerned that being on steroids may aggravate his perforated diverticulitis as it happened before CT abdomen and pelvis confirmed evidence of diverticulitis with perforation and abscess Surgery recommends no surgical intervention for now Continue antibiotics. 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 [different organism from the Bacteroidies also isolated, discussed above] [address] scan advised by ID (due around 10/18) Complete 3 weeks of pip-tazo for Bacteroides bacteremia and acute diverticulitis, may extend to 4 weeks depending on clinical course of diverticulitis Refer to IR if drainable abscess develops Remove PICC line after ABX completion Weekly monitoring labs: CBC with diff, CMP, CRP Medication Changes From Visit none Admission HPI Per Admitting Provider Noelle is an 83 year old male with a PMH significant for BPH with LUTS, CAD s/p PCI (Cx and RCA), HTN, ITP S/P splenectomy, and recent admission to [facility] for aspiration pneumonia who presented to [facility] ED on 09/29/2023 due to acute onset of fever of 103 Fahrenheit, chills, and rigors. On arrival to the ED he was noted to be tachycardic with heart rate in the 130s but otherwise stable. Labs were significant for WBC within normal limits, bicarb of 20 with anion gap within normal limits, lactate within normal limits, Pro-Robby within normal limits and full respiratory BioFire negative. Chest x-ray had been obtained but yet to be read, on my initial read does not appear to have signs of consolidation or volume overload. UA has yet to be obtained at the time of admission. Patient was sitting in bed in no acute distress at the time of exam with his granddaughter bedside, history is obtained from both. He explains that he had been feeling well when he woke this a.m. He recently completed a long prednisone taper which had been prescribed initially to increase his platelet level prior to his procedure which prompted his last admission for aspiration pneumonia. He states that his last dose of prednisone was on 09/24/2023. He drove to [place] earlier today to shop for some new sneakers. He stopped to get food and had 1 beer prior to driving back to [employer]. While driving back to [employer] he had acute onset of chills and rigors. When he arrived home he took his temperature which was 103 Fahrenheit. He took 1 dose of Tylenol around 1800. Due to the acute onset and severity of symptoms he had his granddaughter drive him to the ER for further evaluation. He denies recent shortness of breath, cough, headache, neck pain/stiffness, abdominal pain, nausea/vomiting, dysuria, hematuria, diarrhea, melena, lower extremity swelling, rash or recent insect bites, and recent trauma. Denies pleuritic chest pain especially on deep inspiration. When asked, he notes that he often urinates frequently at night due to his BPH but confirms again that he is without dysuria or cloudy urine. He confirms he is a full code. Discharge Exam PHYSICAL EXAMINATION Last 24h vital signs reviewed, see documentation in flowsheet General: comfortable appearing, no distress. very pleasant gentleman sitting in chair by the window HEENT: Normocephalic, atraumatic, pupils round and equal, sclerae anicteric, no conjunctival injection, moist mucus membranes Lungs: Normal respiratory effort. Clear to auscultation bilaterally. No RRW Heart: Regular rate and rhythm, no murmurs. No JVD Abdomen: Soft, nontender except for minimal tenderness to deep palpation left lower quadrant, nondistended. Bowel sounds present. Extremities: Warm, dry, well-perfused. No extremity edema. Neuro: Alert and oriented x 4, face symmetric, moves 4 extremities well Psych: Normal affect and behavior Updated Medication List Medication Instructions Recorded Confirmed Type acetaminophen 500 mg tablet 1,000 mg PO Q6H PRN Pain 02/23/19 09/29/23 History (Tylenol Extra Strength) aspirin 81 mg tablet,delayed 81 mg PO QAM #0 tabs 02/25/19 09/29/23 Rx release (Ecotrin Low Strength) metoprolol succinate 50 mg 50 mg PO QAM 04/09/19 09/29/23 History tablet,extended release 24 hr nitroglycerin 0.4 mg sublingual 0.4 mg sublingual UD PRN chest 01/01/20 09/29/23 Rx tablet (Nitrostat) pain #30 tabs losartan 100 mg tablet 100 mg PO QAM 01/04/23 09/29/23 History atorvastatin 80 mg tablet 80 mg PO HS #90 tabs 04/03/23 09/29/23 Rx ticagrelor 60 mg tablet (Brilinta) 60 mg PO BID #180 tabs 09/10/23 09/29/23 Rx tobramycin 0.3 %-dexamethasone 0.1 1 drp ophthalmic (eye) TID 09/13/23 09/29/23 History % eye drops,suspension amlodipine 5 mg tablet 5 mg PO HS #90 tabs 09/25/23 09/29/23 Rx vitamin B complex 1 tab PO DAILY 09/29/23 09/29/23 History Hospital Stay Data Consultations 09/29/23 20:29 ED Decision to Admit Stat 10/01/23 07:26 Consult Infectious Diseases Routine 10/03/23 07:52 Consult General Surgery Routine Diagnostic Imagining Performed 10/01/23 15:37 CT Abd and Pelvis [CT abd pelvis wo con] Routine 10/05/23 09:03 CT Abd and Pelvis [CT abd pelvis wo con] Routine Chest X-Ray 09/29/23 18:56 XR chest 1V not portable HISTORY: 83 years-old Male tachycardia acute chest pain with tachycardia COMPARISON: 09/13/2023 TECHNIQUE: AP view of the chest FINDINGS: Cardiac silhouette is enlarged. Coronary arterial stent. No pneumothorax, pleural effusion or airspace consolidation. Bones appear grossly intact. IMPRESSION: No acute process. ACT 112: Negative or not required by law. The above report was generated using voice recognition software. It may contain grammatical, syntax or spelling errors. Electronically signed by: Jonn Chaney M.D. 09/30/2023 8:04 AM Abdomen/Pelvis CT 10/01/23 15:37 CT abd pelvis wo con CLINICAL HISTORY: source of bacteremia TECHNIQUE: Helical axial images of the abdomen and pelvis were obtained. Automated dose lowering techniques and/or adjustment according to patient size were utilized for this exam. This exam was performed without intravenous contrast. CT DOSE: 1153.83 mGy.cm COMPARISON: Comparison is made to CT abdomen pelvis 07/18/2023 FINDINGS: Lower chest: Bibasilar atelectasis versus scarring is seen. Liver: Unremarkable. No focal lesions are seen. Gallbladder and biliary tree: Redemonstration of complex appearance of the gallbladder with possible involvement of the adjacent liver, less well evaluated compared to prior exam due to noncontrast technique. No intra- or extrahepatic biliary ductal dilation. Pancreas: Unremarkable, no focal lesions. Spleen: Patient is status post splenectomy. Adrenals: Unremarkable. Kidneys and ureters: Renal cysts are seen bilaterally with bilateral perinephric stranding. Bladder: Unremarkable. Reproductive organs: Unremarkable. Bowel: There are numerous diverticula. There is fat stranding about a superiorly oriented diverticulum with some localized regional gas and an adjacent irregular gas and fluid collection measuring 11 mm in diameter. Lymph nodes Retroperitoneal: Retroperitoneal lymph nodes measure up to 11 mm. Pelvic: Bilateral prominent pelvic lymph nodes are unchanged from prior exam measuring up to 15 mm on the left. Mesenteric: Unremarkable. Peritoneum: Gas and fluid collection is seen in the left lower quadrant adjacent to diverticula. There is a small focus of pneumoperitoneum immediately and dependent to this lesion. Is soft tissue nodularity is unchanged from prior exam. Vessels: Atherosclerotic calcifications are seen. Infrarenal aortic aneurysm measuring up to 32 mm, unchanged from prior exam. Abdominal wall: Unremarkable. Bones: Degenerative changes in the visualized spine. IMPRESSION: 1. Findings are compatible with a perforated diverticulum with a small abscess and regional pneumoperitoneum. 2. Overall no significant change in retroperitoneal and iliac lymphadenopathy, perinephric nodules, and abnormality of the gallbladder and gallbladder fossa. ACT 112: Negative or not required by law. Electronically signed by: Felipe Vences M.D. 10/01/2023 7:56 PM Abdomen/Pelvis CT 10/05/23 09:[address] WITHOUT CONTRAST CT DOSE: 1208.24 mGy.cm HISTORY: Follow-up study in a patient with intra-abdominal abscess . History of chronic hepatic thrombocytopenia and non-Hodgkin's lymphoma. follow up abscess TECHNIQUE: Multiaxial CT images of the abdomen and pelvis were performed without contrast. A dose lowering technique was utilized adhering to the principles of ALARA. COMPARISON STUDY: 10/01/2023 FINDINGS: Cardiomegaly with extensive coronary artery calcifications. Mild left hemidiaphragmatic elevation. Fusiform dilation of the ascending thoracic aorta, 4 cm. Mild bibasilar atelectasis versus scarring. No pneumatosis or pneumoperitoneum identified. Absent spleen. Scattered calcifications noted involving the pancreas. Unremarkable adrenal glands. Abnormal appearance of the gallbladder redemonstrated with enhancing soft tissue within the expected location of the gallbladder wall with possible extension into the liver and adjacent gastroduodenal junction. Moderate adjacent inflammatory stranding. This finding is similar to the prior exam. The liver is otherwise unremarkable. There is patency of the hepatic and portal veins. Bilateral renal cysts measure up to 6.8 x 6.4 cm within the superior pole right kidney. 9 mm intermediate attenuating lesion of the lateral interpolar left kidney on image 125 favors a proteinaceous or hemorrhagic cyst. Enhancing nodular foci within the perinephric spaces measures up to 1.4 cm on the right and 1.8 cm on the left which is stable from prior. There are mildly enlarged retroperitoneal and iliac chain lymph nodes. A left periaortic node on image 168 measures 1.5 x 1.0 cm, unchanged. A left iliac chain node on image 205 measures 1.8 x 1.1 cm, unchanged and a right external iliac chain node on image 263 measures 2.6 x 1.0 cm, previously 2.5 x 1.0 cm. No new or progressive lymphadenopathy. Unchanged infrarenal abdominal aortic aneurysm measures 3.4 cm. Decompressed urinary bladder with wall thickening. Pelvic structures are not well visualized secondary to streak artifact from hip arthroplasties. Colonic diverticulosis. Acute diverticulitis of the proximal sigmoid has decreased from prior. There is resolution of the previously present pneumoperitoneum. Phlegmon/developing abscess within the adjacent mesocolon measures 1.7 x 1.2 x 1.9 cm. Increase in size from prior. No discrete wall. Unremarkable soft tissues. No acute fracture. Prominent subcortical cystic changes of the right acetabulum suggestive of particle disease. IMPRESSION: 1. Acute sigmoid diverticulitis redemonstrated with resolution of the previously described pneumoperitoneum. There is a small contained perforation/developing abscess within the sigmoid mesocolon measuring up to 1.9 cm. No discrete wall or drainable fluid component. 2. Generally stable disease in this patient with history of non-Hodgkin's lymphoma including bilateral perinephric nodules with mildly enlarged retroperitoneal and iliac chain lymph nodes which are overall similar to the prior study. No evidence of new or progressive disease. 3. Abnormal appearance of the gallbladder redemonstrated with possible underlying mass/lymphomatous involvement with extension into the liver and gastroduodenal junction. 4. Splenectomy. 5. Colonic diverticulosis. 6. Additional findings as above. ACT 112: Negative or not required by law. The above report was generated using voice recognition software. It may contain grammatical, syntax or spelling errors. Electronically signed by: Jonn Chaney M.D. 10/05/2023 11:18 AM 10/09/23 07:26 10/09/23 07:26 Pending Results Patient Have Any Pending Studies at Discharge: Yes Discharge Instructions Given to Patient (Per Discharging Provider) PT and OT evaluate and treat General diet Weekly CBC with diff, CMP, CRP while on IV antibiotics At least 3 weeks IV pip-tazo for Bacteroides fragilis bacteremia and diverticulitis with abscess, too small for drainage (last CT 10/04). Can extend to 4 weeks depending on clinical course. Pip-tazo was started 10/03 so three weeks will be 10/24. Dose increased from 4.5 g q8h to 4.5 g q6h because CrCl improved to >[address] abdomen/pelvis in 2 weeks - approx 10/16 Studies pendinnd Gram negative ritu, probable anaerobe, from blood culture 09/28 - ID and sensi ( This is different than the IDed Bacteroides); sent to [place] reference lab for ID Total Time Total Time Spent Total Time Spent (In Minutes): I personally spent: 45 minutes today on clinical care activities including: reviewing chart notes and vital signs reviewing labs reviewing studies discussion with career services manager examining and counseling the patient writing orders, discharge instructions documentation Coding Level of Care Code 35954 INP/OBS DISCH >30 MIN Diagnoses Bacteremia R78.81 Diverticulitis of colon with perforation K57.20 Fever R50.9 BPH NOS w ur obs/LUTS N40.1 Chronic ITP (idiopathic thrombocytopenia) D69.3 Hypertension I10 CAD (coronary artery disease) I25.119 Associated angina: with unspecified angina Coronary Disease-Associated Artery/Lesion type: unspecified vessel or lesion type [place] vs. transplanted heart: [place] heart
== END 2023-10-09 18:22 | DRG 872 ==
LOC: EDINP 18:48 → ED 18:48 → SUATTDRO 20:52 → 2N 23:29 → SUATTDRO 10-01 07:28

== ENCOUNTER 2025-02-24 14:29 | Inpatient (IN) ==
[2025-02-24 15:21] LABS: Hematocrit (blood only) 24.5 % (42.0-52.0); Hemoglobin 8.1 g/dL (14.0-18.0); Mean Corpuscular Hemoglobin 33.9 pg (25.0-34.0); Mean Corpuscular Volume 102.5 fL (80.0-100.0); RDW Standard Deviation 62.8 fL (36.4-46.3); Red Blood Count 2.39 M/uL (4.70-6.10)
--- NOTE | 2025-02-24 15:33 | Emergency Department Note ---
Impression & Plan Dyspnea on exertion, Symptomatic anemia, Acute GI bleeding ED Provider Note HISTORY OF PRESENT ILLNESS: Patient is an 84-year-old male presenting with feeling unwell. Patient reports he has been not feeling very good for the last week or so. He reports that about a month ago he had some respiratory complaints and was started on Z-Dg which has not seemed to help his symptoms. He was then started on Augmentin and his initial shortness of breath and cough had improved. However, he states that yesterday he started to feel more short of breath with minimal amounts of exertion. His son at bedside reports that the patient does appear more pale than normal. Patient is on iron supplementation but does report that his stool does appear darker than normal. He has a history of CAD with 5 stents and is on Brilinta. He denies any chest pain with the shortness of breath. However, given his cardiac history, he wanted to be checked out with his shortness of breath. Patient was seen at [facility]. Per their documentation, his blood pressure was lower than normal and given his multitude of symptoms they referred him to the emergency department for further workup. He was COVID/flu/RSV negative at that visit. Patient denies any fevers or chills. He reports he just feels generally unwell. He states he was very fatigued yesterday. ROS: as above PHYSICAL EXAM: Constitutional: Patient appears in no acute distress. HENT: Head: Normocephalic and atraumatic. Eyes: EOMI, PERRL Mouth/Throat: Mucous membranes moist. Neck: Trachea midline. Neck supple. Cardiovascular: RRR, No murmurs, rubs or gallops. Intact distal pulses. Pulmonary/Chest: No respiratory distress. Breath sounds clear and equal bilaterally. No wheezes or rales. Abdominal: Abdomen soft, no tenderness, rebound or guarding. Rectal: Chaperoned by nursing staff. No palpable hemorrhoids or masses. Melena on glove that is Hemoccult positive. Musculoskeletal: No edema, tenderness or deformity noted. Skin: Warm and dry. Conjunctival pallor. Patient does appear pale. Psychiatric: Appropriate mood and affect for situation. Neurological: Alert and keenly responsive. CN II-XII grossly intact, moving all extremities equally and fully. MDM: - Vitals signs stable. - History obtained via patient. History as above. - Chronic conditions affecting care: CAD (s/p PCI on Brilinta); ITP (s/p splenectomy); HTN; HLD - Differential diagnoses include, but are not limited to: Anemia; viral syndrome; electrolyte abnormality; pneumonia; CVA; ACS - Order placed for continuous cardiac monitoring. At this time, monitor showed rate of 81 bpm with normal sinus rhythm, per my interpretation. - External medical records reviewed. Oncology/hematology note dated 10/19/2023 was reviewed. 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 He also reportedly had low-grade, non-Hodgkin lymphoma diagnosed in 02/01/2017. - EKG image interpreted by myself showed normal sinus rhythm. Rate 63 bpm. QT 402. No acute ischemic changes. - Laboratory workup interpreted by myself showed slight leukocytosis (WBC 12.27); anemia (Hgb 8.1 - down from 13.2 two weeks ago); stable electrolytes; elevated BUN (25); elevated AST (42) - CXR image reviewed interpreted myself is negative for pneumonia, provide interpretation. - Patient noted to have a significant hemoglobin drop from his blood work on 02/06/2025. Given his Hemoccult positive stool, we will treat for GI bleed. Type and screen ordered. Protonix bolus and drip ordered. - Discussion was had with rehabilitation caseworker about patient's case and need for admission - Hospitalist consulted for admission - [facility] and management. I have personally spent 61 minutes of critical care time in the direct management of this patient. This includes bedside care, interpretation of diagnostic studies, and testing, discussion with consultants, patient, and family members, and other required patient management activities. This 61 minutes is in excess of all separately billable procedures. ASSESSMENT AND PLAN: Diagnosis: Dyspnea on exertion; symptomatic anemia; acute GI bleeding Plan: admit Past Med/Surg History Problem List (Updated 02/24/25 @ 16:35 by Nkechi Gutierres MD) Acute GI bleeding (Acute) Symptomatic anemia (Acute) Dyspnea on exertion (Acute) Aortic regurgitation Lymphadenopathy (Chronic) Cerumen impaction Renal cyst (Chronic) Diverticulitis of colon with perforation Sinus tachycardia (Acute) Decreased hearing of right ear Aspiration pneumonitis History of general anesthesia (Acute) Pneumonia (Acute) Asplenia (Acute) SOB (shortness of breath) (Acute) Wears hearing aid in both ears Delia Rodrigues [id number] BTE-Nathalia disp 06/28/21 Acute UTI Chronic cholecystitis with calculus Asplenia (Acute) Elevated lactic acid level (Acute) Sepsis (Acute) Facial flushing Rigors (Acute) Dyslipidemia Sensorineural hearing loss (SNHL) of both ears Kidney stones, calcium oxalate (Acute) Hypokalemia Elevated bilirubin DVT prophylaxis Chronic ITP (idiopathic thrombocytopenia) (Acute) Unstable gait Aphasia Dysarthria BPH w urinary obs/LUTS (Chronic) Bilateral kidney stones Jaw pain Paroxysmal ventricular tachycardia GERD (gastroesophageal reflux disease) Rheumatoid arthritis Lymphoma Hypertension Sepsis Prostatitis CAD (coronary artery disease) S/P TONIA x 5. Presented with NSTEMI 02/23/19 and had single TONIA to Cx. Returned with chest pain 02/28/12 and found to have thrombosed stent, required additional PCI x 4. Follows with [facility] cardio. Dilated aortic root Echo 10/2022: Mild aortic root dilatation (4.3 cm). Mildly dilated ascending aorta (4.2 cm) Anemia Medical History Chronic anemia History of kidney stones Diverticulitis of colon with perforation Left pontine stroke Coronary stent thrombosis Chronic ITP (idiopathic thrombocytopenia) Mitral regurgitation Non-ST elevation (NSTEMI) myocardial infarction Rheumatoid arthritis BPH (benign prostatic hyperplasia) Lymphoma Hypertension Surgical History Hx of transurethral resection of prostate History of cataract surgery History of surgery History of total splenectomy History of cardiac cath History of total hip arthroplasty History of cystoscopy History of lithotripsy History of colonoscopy History of appendectomy History of tooth extraction History of tonsillectomy Family History Father Cancer Other Hypertension Kidney disease No family history of adverse response to anesthesia Social History Smoking Status: Never smoker Tobacco Type: Cigarettes Second Hand Exposure: No; Do You Dip or Chew Tobacco: No; Hx Alcohol Use: Yes Alcohol type: wine Hx Substance Use: No Preferred Language: Vincentian Communication Ability: Effective Visual Impairment: No Limitations Computing Systems Mechanic Required: No Beliefs That Will Affect Care: None marital status: Current Living Situation: Alone Current Living Situation Comment: [place] Feels Safe at Home: Yes Assistive Devices: Glasses and Hearing Aid - Bilateral Allergies Allergies Allergy/AdvReac Type Severity Reaction Status Date / Time ciprofloxacin Allergy Unknown "Muscle Verified 02/24/25 13:39 problems, split tendons" sulfamethoxazole Allergy Unknown Hives, Verified 02/24/25 13:39 "interferes with immune system" trimethoprim Allergy Unknown Hives, Verified 02/24/25 13:39 "interferes with immune system" morphine AdvReac Unknown Hallucinati Verified 02/24/25 13:39 ons oxycodone AdvReac Unknown Nausea Verified 02/24/25 13:39 prednisone AdvReac Verified 02/24/25 13:39 Home Meds Home Medications Medication Instructions Recorded Confirmed acetaminophen 500 mg tablet 1,000 mg PO Q6H PRN Pain 02/23/19 02/24/25 (Tylenol Extra Strength) metoprolol succinate 50 mg 50 mg PO QAM 04/09/19 02/24/25 tablet,extended release 24 hr vitamin B complex 1 tab PO DAILY 12/29/24 02/24/25 amoxicillin 875 mg-potassium 1 tab PO BID 02/24/25 02/24/25 clavulanate 125 mg tablet Previous Rx's Medication Instructions Recorded aspirin 81 mg tablet,delayed 81 mg PO QAM #0 tabs 02/25/19 release (Ecotrin Low Strength) nitroglycerin 0.4 mg sublingual 0.4 mg sublingual UD PRN chest 01/01/20 tablet (Nitrostat) pain #30 tabs atorvastatin 80 mg tablet 80 mg PO HS #90 tabs 04/08/24 amlodipine 5 mg tablet 5 mg PO HS #90 tabs 11/04/24 losartan 100 mg tablet 100 mg PO QAM #90 tabs 12/08/24 ticagrelor 60 mg tablet (Brilinta) 60 mg PO BID #180 tabs 02/19/25 Results & Data (ED) Vital Signs Vital Signs - 24 hr 02/24/25 14:34 02/24/25 16:11 02/24/25 16:15 Temperature 36.9 C Temperature Source Temporal Artery Scan Pulse Rate 77 77 Respiratory Rate 18 20 Respiratory Effort / Characteristics Non-Labored Spontaneous Respiratory Depth Normal Respiratory Pattern Regular Blood Pressure 131/74 112/56 L Blood Pressure Mean 93 81 Pulse Oximetry 97 100 Oxygen Delivery Method Room Air Room Air Room Air Sepsis Recent Fever Within 48 Hours No Sepsis New/Unexplained Change in Mental Status N/A Sepsis Action Taken by Nursing No Action Required 02/24/25 16:15 02/24/25 16:21 Temperature Temperature Source Pulse Rate 81 87 Respiratory Rate 19 Respiratory Effort / Characteristics Respiratory Depth Respiratory Pattern Blood Pressure Blood Pressure Mean Pulse Oximetry 100 Oxygen Delivery Method Room Air Sepsis Recent Fever Within 48 Hours Sepsis New/Unexplained Change in Mental Status Sepsis Action Taken by Nursing Laboratory Data 02/24/25 15:02 02/24/25 15:02 Lab Results 02/24/25 02/24/25 Range/Units 15:02 16:22 WBC 12.27 H (4.8-10.8) K/ul RBC 2.39 L (4.70-6.10) M/uL Hgb 8.1 L (14.0-18.0) g/dL Hct 24.5 L (42.0-52.0) % MCV 102.5 H (80.0-100.0) fL MCH 33.9 (25.0-34.0) pg MCHC 33.1 (32.0-36.0) g/dL RDW Std Deviation 62.8 H (36.4-46.3) fL RDW Coeff of Katarina 17.3 H (11.5-14.5) % Plt Count (130-400) K/uL MPV (9.4-12.4) fL Immature Gran % (Auto) 1.2 % Neut % (Auto) 67.1 % Lymph % (Auto) 11.1 % [place] % (Auto) 17.7 % Eos % (Auto) 1.9 % Baso % (Auto) 1.0 % Neut # (Auto) 8.24 H (1.40-6.50) K/uL Lymph # (Auto) 1.36 (1.20-3.40) K/uL [place] # (Auto) 2.17 H (0.11-0.59) K/uL Eos # (Auto) 0.23 (0.00-0.50) K/uL Baso # (Auto) 0.12 (0.00-0.20) K/uL Immature Gran # (Auto) 0.15 (0.01-0.20) K/uL Absolute Nucleated RBC 0.33 H (0.00-0.12) K/uL Nucleated RBC % (auto) 2.7 % Polychromasia 2+ Pappenheimer Bodies 1+ Yi-[place] Bodies 1+ Acanthocytes (Spur) 2+ Sodium 137 (136-145) mmol/L Potassium 4.5 (3.5-5.1) mmol/L Chloride 111 H (98-107) mmol/L Carbon Dioxide 20 L (21-32) mmol/L Anion Gap 6 (3-11) BUN 25 H (6-23) mg/dl Creatinine 1.20 (0.6-1.4) mg/dl Est Cr Clr Drug Dosing 40.6 ml/min eGFR 59.26 BUN/Creatinine Ratio 20.8 H (10-20) Glucose 106 H (70-99(Fasting)) mg/dl Calcium 9.2 (8.6-10.3) mg/dl Total Bilirubin 0.6 (0.2-1.0) mg/dl AST 42 H (13-39) U/L ALT 43 (7-52) U/L Alkaline Phosphatase 71 (34-104) U/L Total Protein 6.3 (6.0-8.3) gm/dl Albumin 3.8 (3.4-5.0) gm/dl Globulin 2.5 (2.5-4.0) gm/dl Albumin/Globulin Ratio 1.5 (0.9-2) POC Stool Occult Blood Positive A (Negative) Administered Medications Discontinued Medications Pantoprazole Sodium 80 mg/ (Dextrose) 120 mls @ 480 mls/hr IV NOW ONE Stop: 02/24/25 16:38 Last Admin: 02/24/25 17:06 Dose: 480 mls/hr Documented By: [facility] Imaging Data Radiologist's Impression: Chest X-Ray 02/24/25 14:39 XR chest 1V not portable CLINICAL HISTORY: Cough. COMPARISON STUDY: Chest CT September 13, 2023. Chest radiograph September 29, 2023. FINDINGS: Lung volumes are normal. Lungs are clear. There is no pneumothorax or pleural effusion. Cardiac size is normal. Mediastinal contours are normal. There is no evidence for pulmonary edema. IMPRESSION: No acute cardiopulmonary findings. ACT 112: Negative or not required by law. Electronically signed by: Lucio Wooten M.D. 02/24/2025 3:56 PM Discharge Plan Visit Data Chief Complaint: Hypotension Stated Complaint: REF BY URGENT CARE, LOW BP ED Provider: Nkechi Gutierres Discharge Problem: Dyspnea on exertion, Symptomatic anemia, Acute GI bleeding Patient Disposition: Admitted As Inpatient Condition: Fair Forms Stand Alone Forms: My [facility] Prescriptions Prescriptions: No Action nitroglycerin [Nitrostat] 0.4 mg tablet, sublingual 0.4 mg sublingual UD PRN (Reason: chest pain) Qty: 30 0RF Patient Comments: NEVER USED IT atorvastatin 80 mg tablet 80 mg PO HS Qty: 90 3RF amlodipine 5 mg tablet 5 mg PO HS Qty: 90 3RF losartan 100 mg tablet 100 mg PO QAM Qty: 90 3RF Brilinta 60 mg tablet 60 mg PO BID Qty: 180 3RF metoprolol succinate 50 mg tablet extended release 24 hr 50 mg PO QAM acetaminophen [Tylenol Extra Strength] 500 mg Tablet 1,000 mg PO Q6H PRN (Reason: Pain) Patient Comments: pt was just discharged at 1200 after having a stent put in, has only taken what he received while admitted (02/25/19) aspirin [Ecotrin Low Strength] 81 mg Tablet,Delayed Release (Dr/Ec) 81 mg PO QAM Qty: 0 0RF Patient Comments: pt was just discharged at 1200 after having a stent put in, has only taken what he received while admitted (02/25/19) vitamin B complex Tablet 1 tab PO DAILY amoxicillin-pot clavulanate 875-125 mg tablet 1 tab PO BID Referrals Referrals: Yudy Maldonado DO [Primary Care Provider] -
[2025-02-24 15:46] LABS: Alanine Aminotransferase 43.0 U/L (7-52); Albumin Globulin Ratio 1.5 (0.9-2); Albumin Level 3.8 gm/dl (3.4-5.0); Alkaline Phosphatase 71.0 U/L (34-104); Anion Gap 6.0 (3-11); Bilirubin,Total 0.6 mg/dl (0.2-1.0); Blood Urea Nitrogen 25.0 mg/dl (6-23); Calcium 9.2 mg/dl (8.6-10.3); Carbon Dioxide 20.0 mmol/L (21-32); Chloride 111.0 mmol/L (98-107); Creatinine Clr Calc Pharmacy 40.6 ml/min; Globulin 2.5 gm/dl (2.5-4.0); Glucose 106.0 mg/dl (70-99(Fasting)); Potassium 4.5 mmol/L (3.5-5.1); Sodium 137.0 mmol/L (136-145); Total Protein 6.3 gm/dl (6.0-8.3)
--- NOTE | 2025-02-24 15:57 | XRay Report ---
XR chest 1V not portable CLINICAL HISTORY: Cough. COMPARISON STUDY: Chest CT September 13, 2023. Chest radiograph September 29, 2023. FINDINGS: Lung volumes are normal. Lungs are clear. There is no pneumothorax or pleural effusion. Car diac size is normal. Mediastinal contours are normal. There is no evidence for pulmonary edema. IMPRESSION: No acute cardiopulmonary findings. ACT 112: Negative or not required by law. Electronically signed by: Lucio Wooten M.D. 02/24/2025 3:56 PM
[2025-02-24 16:11] LABS: White Blood Count 12.27 K/ul (4.8-10.8)
[2025-02-24 16:19] LABS: Acanthocytes 2+; Howell-Jolly Bodies 1+; Immature Granulocytes # (auto) 0.15 K/uL (0.01-0.20); Immature Granulocytes % (auto) 1.2 %; Polychromasia 2+
[2025-02-24] MEDS ORDERED: PANTOPRAZOLE BOLUS/DRIP IV STA (16:24)
[2025-02-24] MEDS ORDERED: SODIUM CHLORIDE 0.9% 100 ML IV PRN ×2 (17:20→19:14)
--- NOTE | 2025-02-24 17:20 | History & Physical Report ---
Date of Service February 24, 2025 Assessment & Plan (1) Acute GI bleeding: (2) Acute blood loss anemia: (3) Symptomatic anemia: (4) Chronic ITP (idiopathic thrombocytopenia): (5) CAD (coronary artery disease): (6) Hypertension: (7) Rheumatoid arthritis: (8) GERD (gastroesophageal reflux disease): (9) Paroxysmal ventricular tachycardia: (10) Coronary stent thrombosis: (11) Left pontine stroke: Plan Pleasant 84yo male with history of CAD s/p multiple stents in , ITP s/p splenectomy, BPH, juvenile RA, HTN, GERD, paroxysmal VT, and prior episode of bacteremia who presented with at least 2-3 weeks of feeling cold (mainly his extremities), worsening dyspnea on exertion, pallor (noted by family today), dizziness/lightheadedness, weakness, and melena stools. For many months he has has dark stools due to use of oral iron. However, within the last couple of weeks, his stools turned black color - much different than previously. #suspected acute upper GI bleed, acute blood loss anemia - -with chronic DAPT certainly at risk of gastric or duodenal ulcer(s), gastritis, etc. -can't rule out small bowel AVMs or other pathology -Hb 13.2 on 02/05/25; presented today with Hb of 8.1 -stool heme+ in ER -melena stools for several weeks -NPO -given low-normal BPs and symptomatic anemia along with known CAD will Tx 1 unit PRBCs -may need a 2nd unit depending on his response -cont PPI drip -[facility] consult requested for consideration of EGD #anemia - -2nd to def from GI bleeding -B12 level was <300 in November --> recommend PO supplementation -folate in November was wnl #CAD - -NSTEMI 02/23/19 - cath with left circumflex >90% stenosis --> s/p left circumflex stent -02/27/19 - s/p cath with in-stent stenosis of the left circumflex stent --> s/p additional circumflex stent; also placement of 3 stents in highly stenosed RCA -due to acute blood loss anemia/presumed upper GI bleed will need to hold aspirin & Brilinta -fortunately no chest pain at this time with stable/normal EKG -cont statin -due to low-normal BPs need to hold meto succ, losartan, and amlodipine #HTN - -due to low-normal BPs hold meto succ, losartan, and amlodipine #GERD - -will be on PPI drip #h/o paroxysmal VT - -potassium wnl -check mag level -telemetry #hyperlipidemia - -cont statin #RA - -had juvenile RA -does not have adult-onset RA #h/o left pontine stroke - -thought to be related to hypercoagulability 2nd to previous use of IVIG for ITP -need to hold DAPT due to GI bleeding #h/o ITP s/p splenectomy - -platelet count today is stable #recent URI and/or bronchitis - -no evidence of sinusitis or pneumonia - would not Rx with antibiotics #BPH - -not on meds for such #DVT proph - -chemical means contraindicated -SCDs History of Present Illness Chief Complaint: dizziness, pallor, low blood pressure, dark black stools, shortness of breath Primary Care Provider: Yudy Carlin, DO 2 Yesterday he was walking in [facility] [employer] and he felt very weak which is unusual as he walks most days, plays golf regularly, etc. Today he was noted by family to be pale. In addition, he checked his BP this am and it was low for him - 113/61. Given all of the above he went to the [facility] on [facility] and they advised ER evaluation. A COVID/flu test was negative. Over the last several weeks he has had a respiratory illness. Recently was placed on Augmentin for such. He takes aspirin and Brilinta for his history of CAD but denies any NSAID use. He drinks alcohol - typically whiskey - a couple of times each week. Finally, during the ER visit, a fecal occult blood test was taken and was indeed positive. Allergies Allergy/AdvReac Type Severity Reaction Status Date / Time ciprofloxacin Allergy Unknown "Muscle Verified 02/24/25 13:39 problems, split tendons" sulfamethoxazole Allergy Unknown Hives, Verified 02/24/25 13:39 "interferes with immune system" trimethoprim Allergy Unknown Hives, Verified 02/24/25 13:39 "interferes with immune system" morphine AdvReac Unknown Hallucinati Verified 02/24/25 13:39 ons oxycodone AdvReac Unknown Nausea Verified 02/24/25 13:39 prednisone AdvReac Verified 02/24/25 13:39 Home Medications Medication Instructions Recorded Confirmed Type acetaminophen 500 mg tablet 1,000 mg PO Q6H PRN Pain 02/23/19 02/24/25 History (Tylenol Extra Strength) aspirin 81 mg tablet,delayed 81 mg PO QAM #0 tabs 02/25/19 02/24/25 Rx release (Ecotrin Low Strength) metoprolol succinate 50 mg 50 mg PO QAM 04/09/19 02/24/25 History tablet,extended release 24 hr nitroglycerin 0.4 mg sublingual 0.4 mg sublingual UD PRN chest 01/01/20 02/24/25 Rx tablet (Nitrostat) pain #30 tabs atorvastatin 80 mg tablet 80 mg PO HS #90 tabs 04/08/24 02/24/25 Rx amlodipine 5 mg tablet 5 mg PO HS #90 tabs 11/04/24 02/24/25 Rx losartan 100 mg tablet 100 mg PO QAM #90 tabs 12/08/24 02/24/25 Rx vitamin B complex 1 tab PO DAILY 12/29/24 02/24/25 History ticagrelor 60 mg tablet (Brilinta) 60 mg PO BID #180 tabs 02/19/25 02/24/25 Rx amoxicillin 875 mg-potassium 1 tab PO BID 02/24/25 02/24/25 History clavulanate 125 mg tablet Past Med/Surg History Problem List (Updated 02/25/25 @ 04:24 by Coy Bella MD) Acute blood loss anemia Acute GI bleeding (Acute) Symptomatic anemia (Acute) Dyspnea on exertion (Acute) Aortic regurgitation Lymphadenopathy (Chronic) Cerumen impaction Renal cyst (Chronic) Diverticulitis of colon with perforation Sinus tachycardia (Acute) Decreased hearing of right ear Aspiration pneumonitis History of general anesthesia (Acute) Pneumonia (Acute) Asplenia (Acute) SOB (shortness of breath) (Acute) Wears hearing aid in both ears Phonak Audeo [id number] BTE-Nathalia disp 06/28/21 Acute UTI Chronic cholecystitis with calculus Asplenia (Acute) Elevated lactic acid level (Acute) Sepsis (Acute) Facial flushing Rigors (Acute) Dyslipidemia Sensorineural hearing loss (SNHL) of both ears Kidney stones, calcium oxalate (Acute) Hypokalemia Elevated bilirubin DVT prophylaxis Chronic ITP (idiopathic thrombocytopenia) (Acute) Unstable gait Aphasia Dysarthria BPH w urinary obs/LUTS (Chronic) Bilateral kidney stones Jaw pain Paroxysmal ventricular tachycardia GERD (gastroesophageal reflux disease) Rheumatoid arthritis Lymphoma Hypertension Sepsis Prostatitis CAD (coronary artery disease) S/P TONIA x 5. Presented with NSTEMI 02/23/19 and had single TONIA to Cx. Returned with chest pain 02/28/12 and found to have thrombosed stent, required additional PCI x 4. Follows with [facility] cardio. Dilated aortic root Echo 10/2022: Mild aortic root dilatation (4.3 cm). Mildly dilated ascending aorta (4.2 cm) Anemia Medical History (Updated 02/25/25 @ 04:24 by Coy Bella MD) Chronic anemia History of kidney stones Diverticulitis of colon with perforation 2019, found incidentally on preop CTS prior to splenectomy. Micro-perforation with free air in abdomen. Admitted to hospital for evaluation. [place] non- surgical. Returned to ED a few days after discharge with BRBPR, surgical intervention considered, but pt ultimately transferred to [facility] and had abdominal drainage catheter placed. No recent issues. Left pontine stroke 2019. Per neurology consult, treatment of ITP with IVIG likely contributed. No residual deficits. 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 Returned with chest pain 02/27/19 and found to have thrombosed stent. New sent placed to Left Cx. Also had 3 stents placed to >90% stenosed RCA on 02/27/19. Chronic ITP (idiopathic thrombocytopenia) Controlled, hx IVIG treatments in the past Mitral regurgitation Non-ST elevation (NSTEMI) myocardial infarction 02/2019 > stents x5 total Rheumatoid arthritis "Hx between ages 14-20 years old.. 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, [facility] History of cardiac cath 02/2019 > stents x5 total History of total hip arthroplasty R/L History of cystoscopy + stone extraction History of lithotripsy History of colonoscopy History of appendectomy History of tooth extraction History of tonsillectomy Family History Father Cancer Other Hypertension Kidney disease No family history of adverse response to anesthesia Social History (Updated 02/25/25 @ 04:24 by Coy Bella MD) Smoking Status: Never smoker Second Hand Exposure: No; Do You Dip or Chew Tobacco: No; Hx Alcohol Use: Yes Alcohol type: beer and wine Hx Substance Use: No Preferred Language: [place] Communication Ability: Effective Visual Impairment: No Limitations Education Rep Required: No Beliefs That Will Affect Care: None marital status: Current Living Situation: Family Current Living Situation Comment: Sary How many Children do You have: 2 other: originally from [place] Feels Safe at Home: Yes Assistive Devices: Glasses and Hearing Aid - Bilateral Review of Systems Review of Systems: gen - poor appetite for several days; no fevers or rigors; no significant weight change eyes - no ocular complaints HENT - recent congestion and cough, now improved CV - no chest pain or chest tightness; no orthopnea; no PND pulm - dyspnea on exertion; mild recent cough - improved GI - no abd pain, no vomiting, no BRBPR; melena stool for several weeks - no hematuria musculo - no myalgias neuro - no focal motor weakness skin - pallor noted by family recently; no rash endo - no diabetes Physical Exam Physical Exam: gen - pleasant male in NAD, awake, alert, lying comfortably in bed skin - generalized pallor; no rash eyes - PERRL HENT - MMM, no lesions neck - no JVD, no lymph nodes heart - RRR, s1 s2, 1/6 HELENE LSB lungs - CTA b/l, no rales or wheezing abd - soft NT ND BS+; no hepatomegaly ext - no edema, pulses 2+ b/l feet neuro - strength 5/5 x 4 exts psych - a/o x 3 Results & Data Results & Data Vital Signs (Past 12 Hours) Vital Signs Temp Pulse Resp BP Pulse Ox O2 Del Method 02/24/25 16:21 87 19 100 Room Air 02/24/25 16:15 81 02/24/25 16:15 Room Air 02/24/25 16:11 77 20 112/56 L 100 Room Air 02/24/25 14:34 36.9 C 77 18 131/74 97 Room Air Laboratory Results Laboratory Results - last 24 hr 02/24/25 02/24/25 02/24/25 15:02 16:22 17:53 WBC 12.27 H RBC 2.39 L Hgb 8.1 L Hct 24.5 L MCV 102.5 H MCH 33.9 MCHC 33.1 RDW Std Deviation 62.8 H RDW Coeff of Katarina 17.3 H Plt Count MPV Immature Gran % (Auto) 1.2 Neut % (Auto) 67.1 Lymph % (Auto) 11.1 Starke % (Auto) 17.7 Eos % (Auto) 1.9 Baso % (Auto) 1.0 Neut # (Auto) 8.24 H Lymph # (Auto) 1.36 Starke # (Auto) 2.17 H Eos # (Auto) 0.23 Baso # (Auto) 0.12 Immature Gran # (Auto) 0.15 Absolute Nucleated RBC 0.33 H Nucleated RBC % (auto) 2.7 Plt Count ,Citrate 186 Polychromasia 2+ Pappenheimer Bodies 1+ Yi-[place] Bodies 1+ Acanthocytes (Spur) 2+ PT 14.0 H INR 1.3 H Sodium 137 Potassium 4.5 Chloride 111 H Carbon Dioxide 20 L Anion Gap 6 BUN 25 H Creatinine 1.20 Est Cr Clr Drug Dosing 40.6 eGFR 59.26 BUN/Creatinine Ratio 20.8 H Glucose 106 H Calcium 9.2 Ferritin 76.3 Total Bilirubin 0.6 AST 42 H ALT 43 Alkaline Phosphatase 71 Troponin I High Sens 8.1 Total Protein 6.3 Albumin 3.8 Globulin 2.5 Albumin/Globulin Ratio 1.5 POC Stool Occult Blood Positive A Blood Type Pending Antibody Screen Pending Crossmatch See Detail Diagnostic Findings Chest X-Ray 02/24/25 14:39 XR chest 1V not portable CLINICAL HISTORY: Cough. COMPARISON STUDY: Chest CT September 13, 2023. Chest radiograph September 29, 2023. FINDINGS: Lung volumes are normal. Lungs are clear. There is no pneumothorax or pleural effusion. Cardiac size is normal. Mediastinal contours are normal. There is no evidence for pulmonary edema. IMPRESSION: No acute cardiopulmonary findings. ACT 112: Negative or not required by law. Electronically signed by: Lucio Wooten M.D. 02/24/2025 3:56 PM ECG Additional Comments: EKG - NSR, no ST changes, PVC Code Status & VTE Plan Code Status full code, but would not want prolonged intubation/mech ventilation, etc. PG Care Time/CCT Total # of Minutes Spent Total Time Spent with Patient: Total time spent is greater than 50% in coordination of care (as documented) at patient's floor/unit and/or counseling patient: Coding Level of Care Code 33572 INT INP/OBS CARE 3/75MIN Diagnoses Acute GI bleeding K92.2 Acute blood loss anemia D62 Symptomatic anemia D64.9 Chronic ITP (idiopathic thrombocytopenia) D69.3 CAD (coronary artery disease) I25.119 Associated angina: with unspecified angina Coronary Disease-Associated Artery/Lesion type: unspecified vessel or lesion type [place] vs. transplanted heart: ramona heart Hypertension I10 Rheumatoid arthritis M06.9 GERD (gastroesophageal reflux disease) K21.9 Paroxysmal ventricular tachycardia I47.2 Coronary stent thrombosis T82.867A Left pontine stroke I63.50 (5) CAD (coronary artery disease) Associated angina: with unspecified angina Coronary Disease-Associated Arter y/Lesion type: unspecified vessel or lesion type [place]ski vs. transplanted heart: ramona heart Qualified Code(s): I25.119 - Atherosclerotic heart disease of ramona coronary artery with unspecified angina pectoris
[2025-02-24] MEDS: PANTOprazole 40 MG in DEXTROSE 5% MINI-B 100 ML IV SCH (17:23)
[2025-02-24 18:01] LABS: Ferritin 76.3 ng/ml (8-388)
[2025-02-24 18:47] LABS: INR 1.3 (0.9-1.1); Prothrombin Time 14.0 Seconds (9.0-12.0)
--- NOTE | 2025-02-24 18:58 | Electrocardiogram Report ---
Test Reason : Blood Pressure : */* mmHG Vent. Rate : 63 BPM Atrial Rate : 63 BPM P-R Int : 160 ms QRS Dur : 104 ms QT Int : 402 ms P-R-T Axes : 77 18 51 degrees QTcB Int : 411 ms Sinus rhythm with marked sinus arrhythmia with occasional Premature ventricular complexes Otherwise normal ECG When compared with ECG of 29-Sep-2023 18:59, Premature ventricular complexes are now Present Premature atrial complexes are no longer Present Vent. rate has decreased by 63 bpm Confirmed by Cristian Emerson ([id number]) on 02/24/2025 6:58:16 PM Referred By: Confirmed By: Cristian Emerson
[2025-02-24] MEDS: ACETAMINOPHEN 500 MG TAB PO STA (19:51)
[2025-02-24] MEDS ORDERED: NITROGLYCERIN SL 0.4 MG/TAB TAB SL PRN (21:32)
[2025-02-24] MEDS ORDERED: ACETAMINOPHEN 500 MG TAB PO PRN (21:32)
[2025-02-24] MEDS: ATORVASTATIN 40 MG TAB PO SCH (22:07)
[2025-02-25 02:44] LABS: Hematocrit (blood only) 25.7 % (42.0-52.0); Hemoglobin 8.5 g/dL (14.0-18.0)
[2025-02-25] MEDS ORDERED: SODIUM CHLORIDE 0.9% 100 ML IV PRN (05:39)
[2025-02-25 07:14] LABS: Hematocrit (blood only) 25.7 % (42.0-52.0); Hemoglobin 8.8 g/dL (14.0-18.0); Mean Corpuscular Hemoglobin 33.3 pg (25.0-34.0); Mean Corpuscular Volume 97.3 fL (80.0-100.0); Platelet Count 162 K/uL (130-400); RDW Standard Deviation 62.1 fL (36.4-46.3); Red Blood Count 2.64 M/uL (4.70-6.10); White Blood Count 10.46 K/ul (4.8-10.8)
[2025-02-25 07:18] LABS: Anion Gap 7.0 (3-11); Blood Urea Nitrogen 20.0 mg/dl (6-23); Calcium 8.7 mg/dl (8.6-10.3); Carbon Dioxide 19.0 mmol/L (21-32); Chloride 114.0 mmol/L (98-107); Creatinine Clr Calc Pharmacy 40.3 ml/min; Glucose 90.0 mg/dl (70-99(Fasting)); Magnesium 2.1 mg/dl (1.7-2.4); Potassium 4.0 mmol/L (3.5-5.1); Sodium 140.0 mmol/L (136-145)
[2025-02-25] MEDS: ONDANSETRON INJ 2 MG/ML 2 ML VIAL IV PRN (08:57)
--- NOTE | 2025-02-25 09:22 | Gastrointestinal Consultation ---
Date of Consultation February 25, 2025 Assessment & Plan (1) Acute blood loss anemia: With melena an significant drop in hgb. DAPT on hold. -Continue to monitor H/H. -Continue IV Protonix gtt. -Keep NPO. -EGD today. Supervising Physician Co-Signing Physician Notes I saw and examined this patient with our nurse practitioner and agree with her assessment and plan. Picture consistent with upper GI bleed in the setting of melena and significant anemia. Will proceed with upper endoscopy for further evaluation. History of Present Illness Reason for Consultation: Melena, anemia Attending Physician: Coy Miller MD History of Present Illness Patient is an 84 yo male who presented to the ED after not feeling well for 2 weeks. He was recently treated for a URI and completed 2 courses of antibiotics. He notes he had persistent shortness of breath, felt cold, and started to notice that his stools were darker than his usual dark stool from his iron supplementation. He has a PMH of NHL, ITP with asplenia, perforated diverticulitis, HLD, CAD with 5 stents placed several years ago. He is on DAPT. No extra NSAID use. He denies abdominal pain or hematochezia. His last colonoscopy was several years ago after his perforated diverticulitis. Patient presented to the ED and was found to have an H/H of 8.8/25.7. BUN 20, Cr 1.21. Hgb at the beginning of February 2025 was 13.2. He is currently on an IV PPI gtt and is being transfused PRBCs. No history of PUD. No history of EGDs in the past. He has been NPO. He is a nonsmoker. No pertinent family history. Allergies Allergy/AdvReac Type Severity Reaction Status Date / Time ciprofloxacin Allergy Unknown "Muscle Verified 02/25/25 11:18 problems, split tendons" sulfamethoxazole Allergy Unknown Hives, Verified 02/25/25 11:18 "interferes with immune system" trimethoprim Allergy Unknown Hives, Verified 02/25/25 11:18 "interferes with immune system" morphine AdvReac Unknown Hallucinati Verified 02/25/25 11:18 ons oxycodone AdvReac Unknown Nausea Verified 02/25/25 11:18 prednisone AdvReac Verified 02/25/25 11:18 Home Medications Medication Instructions Recorded Confirmed Type acetaminophen 500 mg tablet 1,000 mg PO Q6H PRN Pain 02/23/19 02/24/25 History (Tylenol Extra Strength) aspirin 81 mg tablet,delayed 81 mg PO QAM #0 tabs 02/25/19 02/24/25 Rx release (Ecotrin Low Strength) metoprolol succinate 50 mg 50 mg PO QAM 04/09/19 02/24/25 History tablet,extended release 24 hr nitroglycerin 0.4 mg sublingual 0.4 mg sublingual UD PRN chest 01/01/20 02/24/25 Rx tablet (Nitrostat) pain #30 tabs atorvastatin 80 mg tablet 80 mg PO HS #90 tabs 04/08/24 02/24/25 Rx amlodipine 5 mg tablet 5 mg PO HS #90 tabs 11/04/24 02/24/25 Rx losartan 100 mg tablet 100 mg PO QAM #90 tabs 12/08/24 02/24/25 Rx vitamin B complex 1 tab PO DAILY 12/29/24 02/24/25 History ticagrelor 60 mg tablet (Brilinta) 60 mg PO BID #180 tabs 02/19/25 02/24/25 Rx amoxicillin 875 mg-potassium 1 tab PO BID 02/24/25 02/24/25 History clavulanate 125 mg tablet Patient History Medical History (Updated 02/25/25 @ 04:24 by Coy Bella MD) Chronic anemia History of kidney stones Diverticulitis of colon with perforation 2019, found incidentally on preop CTS prior to splenectomy. Micro-perforation with free air in abdomen. Admitted to hospital for evaluation. [place] non- surgical. Returned to ED a few days after discharge with BRBPR, surgical intervention considered, but pt ultimately transferred to [facility] and had abdominal drainage catheter placed. No recent issues. Left pontine stroke 2019. Per neurology consult, treatment of ITP with IVIG likely contributed. No residual deficits. 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 Returned with chest pain 02/27/19 and found to have thrombosed stent. New sent placed to Left Cx. Also had 3 stents placed to >90% stenosed RCA on 02/27/19. Chronic ITP (idiopathic thrombocytopenia) Controlled, hx IVIG treatments in the past Mitral regurgitation Non-ST elevation (NSTEMI) myocardial infarction 02/2019 > stents x5 total Rheumatoid arthritis "Hx between ages 14-20 years old.. 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, [facility] History of cardiac cath 02/2019 > stents x5 total History of total hip arthroplasty R/L History of cystoscopy + stone extraction History of lithotripsy History of colonoscopy History of appendectomy History of tooth extraction History of tonsillectomy Family History Father Cancer Other Hypertension Kidney disease No family history of adverse response to anesthesia Social History (Updated 02/25/25 @ 04:24 by Coy Bella MD) Smoking Status: Never smoker Second Hand Exposure: No; Do You Dip or Chew Tobacco: No; Hx Alcohol Use: Yes Alcohol type: beer and wine Hx Substance Use: No Preferred Language: Beninese Communication Ability: Effective Visual Impairment: No Limitations Information Technology Intern Required: No Beliefs That Will Affect Care: None marital status: Current Living Situation: Family Current Living Situation Comment: Sary How many Children do You have: 2 Other Information That Helps Us Care for You: No other: originally from [place] Feels Safe at Home: Yes Safety Concerns: Feels Safe At This Time Assistive Devices: Glasses and Hearing Aid - Bilateral Review of Systems Constitutional: + fatigue, + malaise and + weakness Respiratory: + dyspnea on exertion Gastrointestinal: + melena; no abdominal pain Physical Exam Constitutional: well developed Cardiovascular: Rate/Rhythm: regular rate Gastrointestinal (Abdomen): normal bowel sounds, soft, nontender, no hepatosplenomegaly Results & Data Vital Signs (Past 12 Hours) Vital Signs Temp Pulse Pulse Resp BP BP Pulse Ox 02/25/25 09:00 36.3 C L 73 17 137/82 100 02/25/25 08:15 69 17 127/71 02/25/25 08:03 36.4 C L 65 23 122/67 96 02/25/25 07:53 36.2 C L 66 23 121/71 97 02/25/25 07:47 36.4 C 69 17 128/78 02/25/25 06:05 66 02/25/25 02:32 36.5 C 62 18 95/62 L 97 02/25/25 00:56 36.5 C 74 18 122/86 97 02/25/25 00:15 36.4 C L 69 18 122/86 98 02/24/25 23:15 36.8 C 65 20 118/68 96 02/24/25 22:45 36.6 C 68 23 128/66 97 02/24/25 22:30 36.6 C 70 25 H 117/75 98 02/24/25 22:13 36.6 C 64 15 114/60 96 02/24/25 22:00 02/24/25 21:53 68 02/24/25 21:34 89 18 147/99 H 95 02/24/25 21:32 02/24/25 21:22 77 Pulse Ox O2 Del Method O2 Del Method 02/25/25 09:00 02/25/25 08:15 02/25/25 08:03 02/25/25 07:53 Room Air 02/25/25 07:47 02/25/25 06:05 02/25/25 02:32 Room Air 02/25/25 00:56 02/25/25 00:15 02/24/25 23:15 02/24/25 22:45 02/24/25 22:30 02/24/25 22:13 02/24/25 22:00 Room Air 02/24/25 21:53 02/24/25 21:34 Room Air 02/24/25 21:32 95 Room Air 02/24/25 21:22 PG Care Time/CCT Total # of Minutes Spent Total Time Spent with Patient: Total time spent is greater than 50% in coordination of care (as documented) at patient's floor/unit and/or counseling patient: Coding Level of Care Code 08325 INT INP/OBS CARE 3/75MIN Diagnoses Acute blood loss anemia D62
--- NOTE | 2025-02-25 11:37 | Anesthesiology Consultation ---
Date of Service February 25, 2025 Assessment & Plan Chart Review Chart Review: Acceptable Risk for Surgery Consults Requested none ASA ASA3 Proposed Anesthesia Anesthesia Type: MAC Risk / Benefits Reviewed With: PT / POA / Parent / Guardian, Accepts Plan and Informed Consent Obtained History Surgery Operation Date: 02/25/25 17:00 Proposed Procedures p Esophagogastroduodenoscopy Dr. Ambar Villalta MD Height/Weight Height: 5 ft 6 in Weight: 75.1 kg Allergies Allergy/AdvReac Type Severity Reaction Status Date / Time ciprofloxacin Allergy Unknown "Muscle Verified 02/25/25 11:18 problems, split tendons" sulfamethoxazole Allergy Unknown Hives, Verified 02/25/25 11:18 "interferes with immune system" trimethoprim Allergy Unknown Hives, Verified 02/25/25 11:18 "interferes with immune system" morphine AdvReac Unknown Hallucinati Verified 02/25/25 11:18 ons oxycodone AdvReac Unknown Nausea Verified 02/25/25 11:18 prednisone AdvReac Verified 02/25/25 11:18 Medications Home Medications Medication Instructions Recorded Confirmed Last Taken acetaminophen 500 mg tablet 1,000 mg PO Q6H PRN Pain 02/23/19 02/24/25 09/29/23 (Tylenol Extra Strength) aspirin 81 mg tablet,delayed 81 mg PO QAM #0 tabs 02/25/19 02/24/25 09/29/23 09:00 release (Ecotrin Low Strength) metoprolol succinate 50 mg 50 mg PO QAM 04/09/19 02/24/25 09/29/23 10:00 tablet,extended release 24 hr nitroglycerin 0.4 mg sublingual 0.4 mg sublingual UD PRN chest 01/01/20 02/24/25 07/14/21 tablet (Nitrostat) pain #30 tabs atorvastatin 80 mg tablet 80 mg PO HS #90 tabs 04/08/24 02/24/25 Unknown amlodipine 5 mg tablet 5 mg PO HS #90 tabs 11/04/24 02/24/25 Unknown losartan 100 mg tablet 100 mg PO QAM #90 tabs 12/08/24 02/24/25 Unknown vitamin B complex 1 tab PO DAILY 12/29/24 02/24/25 Unknown ticagrelor 60 mg tablet (Brilinta) 60 mg PO BID #180 tabs 02/19/25 02/24/25 Unknown amoxicillin 875 mg-potassium 1 tab PO BID 02/24/25 02/24/25 Unknown clavulanate 125 mg tablet Active Medications Generic Name Dose Route Start Last Admin Trade Name Freq PRN Reason Stop Dose Admin Atorvastatin Calcium 80 mg 02/24/25 21:45 02/24/25 22:07 Atorvastatin 40 Mg Tab PO 03/26/25 21:44 80 mg HS ERICK Administration Pantoprazole Sodium 40 mg/ 100 mls @ 20 mls/hr 02/24/25 16:45 02/25/25 09:32 Dextrose IV 03/26/25 16:44 8 mg/hr Q5H ERICK 20 mls/hr Administration 8 MG/HR Ondansetron HCl 4 mg 02/24/25 21:32 02/25/25 08:57 Ondansetron Inj 2 Mg/Ml 2 Ml Vial IV 03/26/25 21:31 4 mg Q6H PRN Administration Nausea NPO Date Last Intake of Fluids: 02/24/25 Time Last Intake of Fluids: 10:00 Date Last Intake of Solids: 02/24/25 Time Last Intake of Solids: 10:00 Past Medical History Medical History (Updated 02/25/25 @ 04:24 by Coy Bella MD) Chronic anemia History of kidney stones Diverticulitis of colon with perforation 2019, found incidentally on preop CTS prior to splenectomy. Micro-perforation with free air in abdomen. Admitted to hospital for evaluation. [place] non- surgical. Returned to ED a few days after discharge with BRBPR, surgical intervention considered, but pt ultimately transferred to [facility] and had abdominal drainage catheter placed. No recent issues. Left pontine stroke 2019. Per neurology consult, treatment of ITP with IVIG likely contributed. No residual deficits. 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 Returned with chest pain 02/27/19 and found to have thrombosed stent. New sent placed to Left Cx. Also had 3 stents placed to >90% stenosed RCA on 02/27/19. Chronic ITP (idiopathic thrombocytopenia) Controlled, hx IVIG treatments in the past Mitral regurgitation Non-ST elevation (NSTEMI) myocardial infarction 02/2019 > stents x5 total Rheumatoid arthritis "Hx between ages 14-20 years old.. now resolved" per patient BPH (benign prostatic hyperplasia) Lymphoma Dx 2017, "low grade" Non-hodgkins Hypertension Past Family History Family History Father Cancer Other Hypertension Kidney disease No family history of adverse response to anesthesia Past Surgical History Surgical History Hx of transurethral resection of prostate History of cataract surgery R/L History of surgery [place] [facility] [place] 10 [place] prior splenectomy (2019) [place] of [place] [facility] [place] of cardiac cath 02/2019 > stents x5 total History of total hip arthroplasty R/L History of cystoscopy + stone extraction History of lithotripsy History of colonoscopy History of appendectomy History of tooth extraction History of tonsillectomy Social History Smoking Status: Never smoker Do You Dip or Chew Tobacco: No Hx Alcohol Use: Yes Alcohol type: beer and wine alcohol intake frequency: a few times a week Hx Substance Use: No substance use type: does not use Physical Exam Vital Signs Last Vital Signs Temp 36.8 C 02/25/25 11:22 Pulse 65 02/25/25 11:22 Resp 16 02/25/25 11:22 BP 119/68 02/25/25 11:22 Pulse Ox 100 02/25/25 11:22 O2 Del Method Room Air 02/25/25 11:22 Constitutional no acute distress ENMT Mouth: no TMJ abnormality Thyromental Distance: < 3.5 Finger Breadths Mallampati Class: III Neck normal visual inspection Respiratory normal respiratory effort Cardiovascular Rate/Rhythm: regular rate Chest (Breasts) Chest: no pacemaker Musculoskeletal Extremities: extremities normal to inspection Neurologic moves all extremities Psychiatric Orientation: alert and oriented x 3 Testing Laboratory Results 02/25/25 05:33 02/25/25 05:33 PT 14.0 Seconds (9.0-12.0) H 02/24/25 17:53 INR 1.3 (0.9-1.1) H 02/24/25 17:53 Blood Type A Negative 02/24/25 17:53 Antibody Screen NEGATIVE 02/24/25 17:53
--- NOTE | 2025-02-25 12:07 | GI REPORT ---
[facility] Patient: LAVELLE FAGAN : 1940 Sex at : Male Age: 84 Years Procedure: Upper GI endoscopy Date: 02/25/2025 Attending Physician: Augustus Villalta MD Referring MD: Coy Miller MD Indications: - Suspected upper gastrointestinal bleeding Medications: - Monitored Anesthesia Care Complications: - No immediate complications. Procedure: - Prior to the procedure, a History and Physical was performed, and patient medications and allergies were reviewed. The patient's tolerance of previous anesthesia was also reviewed. The risks and benefits of the procedure and the sedation options and risks were discussed with the patient. All questions were answered, and informed consent was obtained. [Anticoagulant Agents] [Days Prior to Procedure]. [ASA Grade]. After reviewing the risks and benefits, the patient was deemed in satisfactory condition to undergo the procedure. - The egd scope was introduced through the mouth and advanced to the second part of the duodenum. - The upper GI endoscopy was accomplished without difficulty. - The patient tolerated the procedure well. Findings: - The examined esophagus was normal. - The examined duodenum was normal. - One cratered gastric ulcer was found in the gastric fundus. The lesion was 20 mm in largest dimension. Biopsies were taken with a cold forceps for histology. - A medium-sized hiatal hernia was present. - The examined duodenum was normal. Impression: - Normal esophagus. - Normal examined duodenum. - Gastric ulcer. Biopsied. - Medium-sized hiatal hernia. - Normal examined duodenum. Recommendation: - Resume previous diet. - Patient has a contact number available for emergencies. The signs and symptoms of potential delayed complications were discussed with the patient. Return to normal activities tomorrow. Written discharge instructions were provided to the patient. Procedure Code(s): - 89186, Esophagogastroduodenoscopy, flexible, transoral; with biopsy, single or multiple Diagnosis Code(s): - K25.9, Gastric ulcer, unspecified as acute or chronic, without hemorrhage or perforation - K44.9, Diaphragmatic hernia without obstruction or gangrene CPT(R) - 2024 copyright [employer]. All Rights Reserved. The CPT codes, CCI edits and ICD codes generated are intended as suggestions and were generated based on input data. These codes are preliminary and upon soa architect review may be revised to meet current compliance and payer requirements. The provider is responsible for the final determination of appropriate codes, and modifiers. Augustus Villalta MD This document has been electronically signed. Note Initiated:02/25/2025 Note Completed:02/25/2025 12:06 PM \\[id number]
--- NOTE | 2025-02-25 12:17 | Anesthesiology Progress Note ---
Date of Service February 25, 2025 Anesthesia Post Procedure Vital Signs Vital Signs: Temp Pulse Pulse Resp BP BP Pulse Ox 02/25/25 11:22 36.8 C 65 16 119/68 100 02/25/25 09:36 36.6 C 66 16 100/60 95 02/25/25 09:00 36.3 C L 73 17 137/82 100 02/25/25 08:15 69 17 127/71 02/25/25 08:03 36.4 C L 65 23 122/67 96 02/25/25 07:53 36.2 C L 66 23 121/71 97 02/25/25 07:47 36.4 C 69 17 128/78 02/25/25 06:05 66 02/25/25 02:32 36.5 C 62 18 95/62 L 97 02/25/25 00:56 36.5 C 74 18 122/86 97 02/25/25 00:15 36.4 C L 69 18 122/86 98 02/24/25 23:15 36.8 C 65 20 118/68 96 02/24/25 22:45 36.6 C 68 23 128/66 97 02/24/25 22:30 36.6 C 70 25 H 117/75 98 02/24/25 22:13 36.6 C 64 15 114/60 96 02/24/25 22:00 02/24/25 21:53 68 02/24/25 21:34 89 18 147/99 H 95 02/24/25 21:32 02/24/25 21:22 77 02/24/25 21:00 76 17 100/65 97 02/24/25 20:30 86 19 138/82 98 02/24/25 20:19 81 02/24/25 20:00 120/65 02/24/25 20:00 74 15 120/65 98 02/24/25 19:30 76 21 129/72 97 02/24/25 19:00 75 14 103/74 99 02/24/25 18:30 75 18 106/66 97 02/24/25 18:00 75 18 134/74 100 02/24/25 17:30 71 15 139/91 100 02/24/25 17:05 73 17 122/75 02/24/25 16:21 87 19 100 02/24/25 16:15 81 02/24/25 16:15 02/24/25 16:11 77 20 112/56 L 100 02/24/25 14:34 36.9 C 77 18 131/74 97 Pulse Ox O2 Del Method O2 Del Method 02/25/25 11:22 Room Air 02/25/25 09:36 02/25/25 09:00 02/25/25 08:15 02/25/25 08:03 02/25/25 07:53 Room Air 02/25/25 07:47 02/25/25 06:05 02/25/25 02:32 Room Air 02/25/25 00:56 02/25/25 00:15 02/24/25 23:15 02/24/25 22:45 02/24/25 22:30 02/24/25 22:13 02/24/25 22:00 Room Air 02/24/25 21:53 02/24/25 21:34 Room Air 02/24/25 21:32 95 Room Air 02/24/25 21:22 02/24/25 21:00 Room Air 02/24/25 20:30 Room Air 02/24/25 20:19 02/24/25 20:00 02/24/25 20:00 Room Air 02/24/25 19:30 Room Air 02/24/25 19:00 Room Air 02/24/25 18:30 Room Air 02/24/25 18:00 Room Air 02/24/25 17:30 Room Air 02/24/25 17:05 02/24/25 16:21 Room Air 02/24/25 16:15 02/24/25 16:15 Room Air 02/24/25 16:11 Room Air 02/24/25 14:34 Room Air Transfer of Care Handoff Completed per policy Notes Mental Status: alert / awake / arousable Patient Amnestic to Procedure: Yes Nausea / Vomiting: adequately controlled Pain: adequately controlled Airway Patency, RR, SpO2: stable & adequate BP & HR: stable & adequate Hydration State: stable & adequate Anesthetic Complications: no major complications apparent
[2025-02-25] MEDS: PROPOFOL IV EMULSION 10 MG/ML 20 ML VIAL IV ONE ×2 (13:21→13:22)
[2025-02-25] MEDS: LIDOCAINE 2% 2 ML VIAL/AMP(20MG/ML) INFIL ONE (13:21)
--- NOTE | 2025-02-25 14:10 | Hospitalist Progress Note ---
Date of Service February 25, 2025 Assessment & Plan (1) Acute GI bleeding: (2) Acute blood loss anemia: (3) Symptomatic anemia: (4) Chronic ITP (idiopathic thrombocytopenia): (5) CAD (coronary artery disease): (6) Hypertension: (7) Rheumatoid arthritis: (8) GERD (gastroesophageal reflux disease): (9) Paroxysmal ventricular tachycardia: (10) Coronary stent thrombosis: (11) Left pontine stroke: Plan Pleasant 84yo male with history of CAD s/p multiple stents in , ITP s/p splenectomy, BPH, juvenile RA, HTN, GERD, paroxysmal VT, and prior episode of bacteremia who presented with at least 2-3 weeks of feeling cold (mainly his extremities), worsening dyspnea on exertion, pallor (noted by family today), dizziness/lightheadedness, weakness, and melena stools. For many months he has has dark stools due to use of oral iron. However, within the last couple of weeks, his stools turned black color - much different than previously. #Acute upper GI bleed (ulcer on EGD), acute blood loss anemia - -Hold Brillinta, will restart aspirin tomorrow on discussion with Dr Villalta -Hb 13.2 on 02/05/25; admission Hb of 8.1 s/p 2 units packed RBCs, continue hemoglobin checks q12h -Continue pantoprazole 40mg IV BID #Anemia - -2nd to Fe def from GI bleeding -B12 level was <300 in November --> recommend PO supplementation -folate in November was wnl #CAD / HTN / hyperlipidemia -NSTEMI 02/23/19 - cath with left circumflex >90% stenosis --> s/p left circumflex stent -02/27/19 - s/p cath with in-stent stenosis of the left circumflex stent --> s/p additional circumflex stent; also placement of 3 stents in highly stenosed RCA -cont statin -Ok to restart metoprolol succinate today, continue to hold losartan and amlodipine #h/o paroxysmal VT - -potassium wnl -Mg level 2.1 -telemetry #RA - -had juvenile RA -does not have adult-onset RA #h/o left pontine stroke - -thought to be related to hypercoagulability 2nd to previous use of IVIG for ITP -aspirin and Brilinta management as above #h/o ITP s/p splenectomy - -platelet count today is stable #recent URI and/or bronchitis - -no evidence of sinusitis or pneumonia - would not Rx with antibiotics #BPH - -not on meds for such VTE proph -chemical means contraindicated, SCDs Disposition - continue on PCU pending clinical course, possible home in next 1-2 days Admission and Anticipated Discharge Date Admission Date: February 24, 2025 Subjective Patient seen after endoscopy. No nausea, vomiting or abdominal pain. He just had symptoms of anemia with dizziness and shortness of breath prior to admission. No change in bowel but having black stool since starting iron supplementation. Physical Exam Respiratory: normal respiratory effort, lungs clear to auscultation Cardiovascular: RRR, no murmur, no edema Gastrointestinal (Abdomen): normal bowel sounds, soft, nontender, no hepatosplenomegaly Results & Data Results & Data Vital Signs (Past 12 Hours) Vital Signs Temp Pulse Pulse Resp BP BP Pulse Ox 02/25/25 13:23 36.3 C L 71 18 121/68 96 02/25/25 12:37 66 17 133/74 95 02/25/25 12:22 67 17 106/65 95 02/25/25 12:07 78 16 105/62 94 02/25/25 11:22 36.8 C 65 16 119/68 100 02/25/25 09:36 36.6 C 66 16 100/60 95 02/25/25 09:00 36.3 C L 73 17 137/82 100 02/25/25 08:15 69 17 127/71 02/25/25 08:03 36.4 C L 65 23 122/67 96 02/25/25 07:53 36.2 C L 66 23 121/71 97 02/25/25 07:47 36.4 C 69 17 128/78 02/25/25 06:05 66 02/25/25 02:32 36.5 C 62 18 95/62 L 97 O2 Del Method 02/25/25 13:23 Room Air 02/25/25 12:37 Room Air 02/25/25 12:22 Room Air 02/25/25 12:07 Room Air 02/25/25 11:22 Room Air 02/25/25 09:36 02/25/25 09:00 02/25/25 08:15 02/25/25 08:03 02/25/25 07:53 Room Air 02/25/25 07:47 02/25/25 06:05 02/25/25 02:32 Room Air PG Care Time/CCT Total # of Minutes Spent Total Time Spent with Patient: Total time spent is greater than 50% in coordination of care (as documented) at patient's floor/unit and/or counseling patient: Coding Level of Care Code 23641 SUB INP/OBS CARE 3/50MIN Diagnoses Acute GI bleeding K92.2 Acute blood loss anemia D62 Symptomatic anemia D64.9 Chronic ITP (idiopathic thrombocytopenia) D69.3 CAD (coronary artery disease) I25.119 Associated angina: with unspecified angina Coronary Disease-Associated Artery/Lesion type: unspecified vessel or lesion type [place] vs. transplanted heart: [place] heart Hypertension I10 Rheumatoid arthritis M06.9 GERD (gastroesophageal reflux disease) K21.9 Paroxysmal ventricular tachycardia I47.2 Coronary stent thrombosis T82.867A Left pontine stroke I63.50 (5) CAD (coronary artery disease) Associated angina: with unspecified angina Coronary Disease-Associated Artery/Lesion type: unspecified vessel or lesion type [place] vs. transplanted heart: [place] heart Qualified Code(s): I25.119 - Atherosclerotic heart disease of [place] coronary artery with unspecified angina pectoris
[2025-02-25] MEDS: METOPROLOL SUCC 50MG EXT REL TAB PO SCH (14:53)
[2025-02-25 17:15] LABS: Hematocrit (blood only) 29.1 % (42.0-52.0); Hemoglobin 9.8 g/dL (14.0-18.0)
[2025-02-25] MEDS: PANTOprazole 40 MG/10 ML SYR IV SCH (20:21)
[2025-02-26 03:19] VITALS: O2SAT 98
[2025-02-26 06:02] LABS: Hematocrit (blood only) 27.6 % (42.0-52.0); Hemoglobin 9.3 g/dL (14.0-18.0); Mean Corpuscular Hemoglobin 32.4 pg (25.0-34.0); Mean Corpuscular Volume 96.2 fL (80.0-100.0); Platelet Count 136 K/uL (130-400); RDW Standard Deviation 63.5 fL (36.4-46.3); Red Blood Count 2.87 M/uL (4.70-6.10); White Blood Count 10.20 K/ul (4.8-10.8)
[2025-02-26 06:14] LABS: Anion Gap 6.0 (3-11); Blood Urea Nitrogen 24.0 mg/dl (6-23); Calcium 8.4 mg/dl (8.6-10.3); Carbon Dioxide 20.0 mmol/L (21-32); Chloride 112.0 mmol/L (98-107); Creatinine Clr Calc Pharmacy 36.1 ml/min; Glucose 97.0 mg/dl (70-99(Fasting)); Potassium 4.3 mmol/L (3.5-5.1); Sodium 138.0 mmol/L (136-145)
[2025-02-26 06:19] LABS: Acanthocytes 1+; Howell-Jolly Bodies 1+; Immature Granulocytes # (auto) 0.05 K/uL (0.01-0.20); Immature Granulocytes % (auto) 0.5 %; Polychromasia 1+
--- NOTE | 2025-02-26 08:30 | Gastroenterology Progress Note ---
Date of Service February 26, 2025 Assessment & Plan (1) Gastric ulcer: Plan: Endoscopy revealed the gastric ulcer in the fundus. An atypical location for peptic ulcer disease. Biopsies taken to exclude malignancy. Hemodynamically stable no overt bleeding. Will continue PPI. No need for hospitalization at this time from GI standpoint. Hopefully discharge today. I will follow-up with him regarding the biopsies. Admission and Anticipated Discharge Date Admission Date: February 24, 2025 Subjective Resting comfortably denies shortness of breath chest pain or abdominal pain. No overt bleeding. Physical Exam Physical Exam: No acute distress Respiratory rate regular Cardiac rhythm regular Abdomen soft nontender Results & Data Results & Data Vital Signs (Past 12 Hours) Vital Signs Temp Pulse Pulse Resp BP BP Pulse Ox 02/26/25 03:19 36.3 C L 67 14 109/62 98 02/26/25 00:11 36.6 C 60 17 119/67 96 02/25/25 21:40 87 O2 Del Method 02/26/25 03:19 Room Air 02/26/25 00:11 Room Air 02/25/25 21:40 Laboratory Results Laboratory Results - last 48 hr 02/24/25 02/24/25 02/24/25 15:02 16:22 17:53 WBC 12.27 H RBC 2.39 L Hgb 8.1 L Hct 24.5 L MCV 102.5 H MCH 33.9 MCHC 33.1 RDW Std Deviation 62.8 H RDW Coeff of Katarina 17.3 H Plt Count MPV Immature Gran % (Auto) 1.2 Neut % (Auto) 67.1 Lymph % (Auto) 11.1 [place] % (Auto) 17.7 Eos % (Auto) 1.9 Baso % (Auto) 1.0 Neut # (Auto) 8.24 H Lymph # (Auto) 1.36 [place] # (Auto) 2.17 H Eos # (Auto) 0.23 Baso # (Auto) 0.12 Immature Gran # (Auto) 0.15 Absolute Nucleated RBC 0.33 H Nucleated RBC % (auto) 2.7 Plt Count ,Citrate 186 Polychromasia 2+ Pappenheimer Bodies 1+ [place] Bodies 1+ Echinocytes Acanthocytes (Spur) 2+ PT 14.0 H INR 1.3 H Sodium 137 Potassium 4.5 Chloride 111 H Carbon Dioxide 20 L Anion Gap 6 BUN 25 H Creatinine 1.20 Est Cr Clr Drug Dosing 40.6 eGFR 59.26 BUN/Creatinine Ratio 20.8 H Glucose 106 H Calcium 9.2 Magnesium Ferritin 76.3 Total Bilirubin 0.6 AST 42 H ALT 43 Alkaline Phosphatase 71 Troponin I High Sens 8.1 Total Protein 6.3 Albumin 3.8 Globulin 2.5 Albumin/Globulin Ratio 1.5 POC Stool Occult Blood Positive A Blood Type A Negative Antibody Screen NEGATIVE Crossmatch See Detail 02/25/25 02/25/25 02/25/25 01:54 05:33 17:03 WBC 10.46 RBC 2.64 L Hgb 8.5 L 8.8 L 9.8 L Hct 25.7 L 25.7 L 29.1 L MCV 97.3 D MCH 33.3 MCHC 34.2 RDW Std Deviation 62.1 H RDW Coeff of [place]ar[place] 17.7 H Plt Count 162 MPV 12.0 Immature Gran % (Auto) Neut % (Auto) Lymph % (Auto) Bru[place] % (Auto) Eos % (Auto) Baso % (Auto) Neut # (Auto) Lymph # (Auto) Bru[place] # (Auto) Eos # (Auto) Baso # (Auto) Immature Gran # (Auto) Absolute Nucleated RBC 0.23 H Nucleated RBC % (auto) 2.2 Plt Count ,Citrate Polychromasia Pappenheimer Bodies [place] Bodies Echinocytes Acanthocytes (Spur) PT INR Sodium 140 Potassium 4.0 Chloride 114 H Carbon Dioxide 19 L Anion Gap 7 BUN 20 Creatinine 1.21 Est Cr Clr Drug Dosing 40.3 eGFR 58.68 BUN/Creatinine Ratio 16.5 Glucose 90 Calcium 8.7 Magnesium 2.1 Ferritin Total Bilirubin AST ALT Alkaline Phosphatase Troponin I High Sens Total Protein Albumin Globulin Albumin/Globulin Ratio POC Stool Occult Blood Blood Type Antibody Screen Crossmatch 02/26/25 05:37 WBC 10.20 RBC 2.87 L Hgb 9.3 L Hct 27.6 L MCV 96.2 MCH 32.4 MCHC 33.7 RDW Std Deviation 63.5 H RDW Coeff of Katarina 18.2 H Plt Count 136 MPV 11.4 Immature Gran % (Auto) 0.5 Neut % (Auto) 55.8 Lymph % (Auto) 16.6 [place] % (Auto) 19.1 Eos % (Auto) 6.9 Baso % (Auto) 1.1 Neut # (Auto) 5.70 Lymph # (Auto) 1.69 Bru[place] # (Auto) 1.95 H Eos # (Auto) 0.70 H Baso # (Auto) 0.11 Immature Gran # (Auto) 0.05 Absolute Nucleated RBC 0.18 H Nucleated RBC % (auto) 1.8 Plt Count ,Citrate Polychromasia 1+ Pappenheimer Bodies [place] Bodies 1+ Echinocytes 1+ Acanthocytes (Spur) 1+ PT INR Sodium 138 Potassium 4.3 Chloride 112 H Carbon Dioxide 20 L Anion Gap 6 BUN 24 H Creatinine 1.35 Est Cr Clr Drug Dosing 36.1 eGFR 51.45 BUN/Creatinine Ratio 17.8 Glucose 97 Calcium 8.4 L Magnesium Ferritin Total Bilirubin AST ALT Alkaline Phosphatase Troponin I High Sens Total Protein Albumin Globulin Albumin/Globulin Ratio POC Stool Occult Blood Blood Type Antibody Screen Crossmatch PG Care Time/CCT Total # of Minutes Spent Total Time Spent with Patient: Total time spent is greater than 50% in coordination of care (as documented) at patient's floor/unit and/or counseling patient: Coding Level of Care Code 31750 SUB INP/OBS CARE 2/35MIN Diagnoses Gastric ulcer K25.9
[2025-02-26] MEDS: ASPIRIN 81 MG ECTAB PO SCH (08:41)
[2025-02-26] MEDS: CYANOCOBALAMIN (B-12) 500 MCG TABLET PO SCH (08:41)
[2025-02-26 08:42] VITALS: PULSE 66; RESP 20; TEMP 97.5
--- NOTE | 2025-02-26 10:29 | Discharge Summary ---
Discharge Summary Date of Service February 26, 2025 Principal Dx & Hospital Course #1 = Principal Diagnosis (1) Acute GI bleeding: (2) Acute blood loss anemia: (3) Symptomatic anemia: (4) Chronic ITP (idiopathic thrombocytopenia): (5) CAD (coronary artery disease): (6) Hypertension: (7) Rheumatoid arthritis: (8) GERD (gastroesophageal reflux disease): (9) Paroxysmal ventricular tachycardia: (10) Coronary stent thrombosis: (11) Left pontine stroke: Aurelia Tamayo (Graham) is a 84 year old male admitted to [facility] from February 24 - 2024 due to shortness of breath and dizziness. He was diagnosed with an acute gastrointestinal bleed with acute blood loss anemia with hemoglobin 8.1 on admission. He was treated with intravenous pantoprazole and transfused 2 units packed red blood cells. He underwent upper endoscopy on February [address] Villalta which showed a gastric ulcer. This was biopsied with pathology pending at discharge. He will continue on oral pantoprazole twice a day for the next month and then further dosing per gastroenterology but likely once daily after this. He is ok to restart aspirin but recommend holding off his Brilinta until following up with his primary care provider with repeat hemoglobin in approximately 1-2 weeks. If stable likely he can also be restarting on Brilinta. He was also noted to have a low normal B12 level (<400) in November. Since pantoprazole can reduce this further recommend starting on supplementation and repeat levels in 2-3 months. Due to low blood pressure and dizziness his losartan and amlodipine have been on hold in the hospital. Recommend restarting his losartan tomorrow but if he becomes dizzy recommend holding this. Amlodipine was discontinued indefinitely until follow up with his primary care physician to decide whether this needs to be restarted. Notes For Next Care Provider As above Medication Changes From Visit Pantoprazole started for GI bleed B12 started for B12 level <400 and starting on pantoprazole Augmentin discontinued as shortness of breath likely due to anemia and no pneumonia seen on imaging/exam Amlodipine held due to low BP Brilinta held due to acute GI bleed Admission HPI Per Admitting Provider 2 Yesterday he was walking in [employer] and he felt very weak which is unusual as he walks most days, plays golf regularly, etc. Today he was noted by family to be pale. In addition, he checked his BP this am and it was low for him - 113/61. Given all of the above he went to the [facility] on [facility] and they advised ER evaluation. A COVID/flu test was negative. Over the last several weeks he has had a respiratory illness. Recently was placed on Augmentin for such. He takes aspirin and Brilinta for his history of CAD but denies any NSAID use. He drinks alcohol - typically whiskey - a couple of times each week. Finally, during the ER visit, a fecal occult blood test was taken and was indeed positive. Discharge Exam Respiratory normal respiratory effort, lungs clear to auscultation Cardiovascular RRR, no murmur, no edema Gastrointestinal (Abdomen) normal bowel sounds, soft, nontender, no hepatosplenomegaly Discharge Plan Discharge Items Patient Disposition: Home - Self-Care Reason For Visit: ACUTE GI BLEED Discharge Diagnosis: Acute gastrointestinal bleed Condition on Discharge: Fair Activity: Resume your previous activity Non-emergency contact: [employer] Call non-emergency contact if: you have any medication questions and your symptoms worsen Follow-up/Referrals: Yudy Maldonado DO [Primary Care Provider] - Augustus Villalta MD [Physician] - (Follow up acute gastrointestinal bleed) Diet: Heart Healthy Addtl Attending Provider Instructions: You were admitted to [facility] from February 24 - 2024 due to shortness of breath and dizziness. You were diagnosed with an acute gastrointestinal bleed with acute blood loss anemia. You were treated with intravenous pantoprazole and transfused 2 units packed red blood cells. You underwent upper endoscopy on February [address] Villalta which showed a gastric ulcer. This was biopsied with pathology pending at discharge. Please follow up for the results of this. 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 Ok to restart aspirin but recommend holding off your Brilinta until following up with your primary care provider with repeat hemoglobin in approximately 1-2 weeks. You were also noted to have a low normal B12 level in November. Pantoprazole can also reduce this therefore recommend taking supplementation for this as prescribed and repeating levels in 2-3 months. Due to low blood pressure and dizziness your losartan and amlodipine have been on hold in the hospital. Recommend restarting your losartan tomorrow but if this is making you dizzy you should stop this. Recommended stopping your amlodipine until follow up with your primary care physician. Pending Studies at Discharge: Yes (Gastric biopsy results) Stand-Alone Forms: My [facility], Smoking Cessation Medications and DC Order Prescriptions: New cyanocobalamin (vitamin B-12) 500 mcg Tablet 500 mcg PO QAM Qty: 30 0RF pantoprazole 40 mg Tablet,Delayed Release (Dr/Ec) 40 mg PO BID Qty: 60 0RF Continued nitroglycerin [Nitrostat] 0.4 mg tablet, sublingual 0.4 mg sublingual UD PRN (Reason: chest pain) Qty: 30 0RF Patient Comments: NEVER USED IT atorvastatin 80 mg tablet 80 mg PO HS Qty: 90 3RF losartan 100 mg tablet 100 mg PO QAM Qty: 90 3RF metoprolol succinate 50 mg tablet extended release 24 hr 50 mg PO QAM acetaminophen [Tylenol Extra Strength] 500 mg Tablet 1,000 mg PO Q6H PRN (Reason: Pain) Patient Comments: pt was just discharged at 1200 after having a stent put in, has only taken what he received while admitted (02/25/19) aspirin [Ecotrin Low Strength] 81 mg Tablet,Delayed Release (Dr/Ec) 81 mg PO QAM Qty: 0 0RF Patient Comments: pt was just discharged at 1200 after having a stent put in, has only taken what he received while admitted (02/25/19) vitamin B complex Tablet 1 tab PO DAILY Held amlodipine 5 mg tablet 5 mg PO HS Qty: 90 3RF Hold Instructions: Resume on 03/05/25. until follow up with primary care provider Brilinta 60 mg tablet 60 mg PO BID Qty: 180 3RF Hold Instructions: Resume on 03/05/25. until after repeat hemoglobin test with primary care provider Discontinued amoxicillin-pot clavulanate 875-125 mg tablet 1 tab PO BID Discharge Orders: Discharge Order (Routine); Ordered 02/26/25 Ordered By: Coy Miller Admission Data Admit Date/Time: 02/24/25 19:22 Attending Provider: Coy Miller Admit Provider: Coy Bella Primary Care Provider: Yudy Maldonado Other Providers: Coy Bella; Augustus Villalta I Other Interventions: Discharge Summary Assessment (RN) Last Done: 02/26/25 10:59 Hospital Stay Data Consultations 02/24/25 16:34 ED Decision to Admit Stat 02/24/25 21:32 Consult Gastroenterology Routine Procedures Performed Operation Date: 02/25/25 17:00 Actual Procedures p EGD Biopsy Cytology - Augustus Villalta MD Pending Results Patient Have Any Pending Studies at Discharge: Yes (Gastric biopsy results) Discharge Instructions Given to Patient (Per Discharging Provider) You were admitted to [facility] from February 24 - 2024 due to shortness of breath and dizziness. You were diagnosed with an acute gastrointestinal bleed with acute blood loss anemia. You were treated with intravenous pantoprazole and transfused 2 units packed red blood cells. You underwent upper endoscopy on February [address] Villalta which showed a gastric ulcer. This was biopsied with pathology pending at discharge. Please follow up for the results of this. 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 Ok to restart aspirin but recommend holding off your Brilinta until following up with your primary care provider with repeat hemoglobin in approximately 1-2 weeks. You were also noted to have a low normal B12 level in November. Pantoprazole can also reduce this therefore recommend taking supplementation for this as prescribed and repeating levels in 2-3 months. Due to low blood pressure and dizziness your losartan and amlodipine have been on hold in the hospital. Recommend restarting your losartan tomorrow but if this is making you dizzy you should stop this. Recommended stopping your amlodipine until follow up with your primary care physician. Total Time Total Time Spent Total Time Spent (In Minutes): 45 Coding Level of Care Code 46054 INP/OBS DISCH >30 MIN Diagnoses Acute GI bleeding K92.2 Acute blood loss anemia D62 Symptomatic anemia D64.9 Chronic ITP (idiopathic thrombocytopenia) D69.3 CAD (coronary artery disease) I25.119 Associated angina: with unspecified angina Coronary Disease-Associated Artery/Lesion type: unspecified vessel or lesion type [place] vs. transplanted heart: crow heart Hypertension I10 Rheumatoid arthritis M06.9 GERD (gastroesophageal reflux disease) K21.9 Paroxysmal ventricular tachycardia I47.2 Coronary stent thrombosis T82.867A Left pontine stroke I63.50
[2025-02-26 11:03] VITALS: BP 109/62
== END 2025-02-26 13:27 | disposition home or self-care (01) | DRG 378 ==
LOC: ED 14:29 → SUATTDRO 19:22 → 2E 19:22
DX: R42 Dizziness and giddiness; K21.9 Gastro-esophageal reflux disease without esophagitis; D62 Acute posthemorrhagic anemia; I47.29 Other ventricular tachycardia; D69.3 Immune thrombocytopenic purpura; Z90.81 Acquired absence of spleen; Z86.73 Personal history of transient ischemic attack (TIA), and cerebral infarction without residual deficits; I25.2 Old myocardial infarction; Z88.5 Allergy status to narcotic agent; K25.9 Gastric ulcer, unspecified as acute or chronic, without hemorrhage or perforation; Z95.5 Presence of coronary angioplasty implant and graft; Z88.2 Allergy status to sulfonamides; Z88.1 Allergy status to other antibiotic agents; R06.02 Shortness of breath; M06.9 Rheumatoid arthritis, unspecified; R53.1 Weakness; K92.2 Gastrointestinal hemorrhage, unspecified; E78.5 Hyperlipidemia, unspecified; I10 Essential (primary) hypertension; N40.0 Benign prostatic hyperplasia without lower urinary tract symptoms; I25.10 Atherosclerotic heart disease of native coronary artery without angina pectoris